=== PATIENT | female | born 1955 | race Hispanic/Latino ===

== ENCOUNTER 2025-01-22 19:23 | Inpatient (IN) | payer MEDICARE, OTHER ==
[2025-01-22] MEDS ORDERED: LIDOCAINE 2% W/EPI 1:200,000 MPF 20 ML VIAL IM ONE (19:58)
--- OUTSIDE RECORDS SUMMARY | 2025-01-22 20:00 | XMS REPORT | Continuity of Care Document ---
Author Name Unknown Address [address] [facility] [address] [place] [address] [facility] Address [address] [facility]. [address] [place] [address] Care Team Providers Care Car Record Clerk Name Role Phone Esther TORRES, Anselmo Primary Care Physic kati [phone] WAYLON BASS Attending Clinician Unavailable MILI CSHWARTZ Attending Clinician Unavailable MILI SCHWARTZ Attending Clinician Unavailable JADA-OJRDI WREN Attending Clinician Unavailab JORDI Salcedo Attending Clinician Unavailab NADER Mtz Attending Clinician Unavailable NADER CASANOVA Attending Clinician Unavailable Nader Casanova MD Attending Clinician [phone] SHARDA RICCI Attending Clinician Rolanda Davonte Liu RN Attending Clinician Unavail able MEREDITH BALTAZAR Attending Clinician Unava ilterrell Doctor Unassigned, [place] Attending Clinician U MENDEZ Helms Attending Clinician Unavailab MENDEZ Alonzo Attending Clinician Unavailab HENRRY Harvey Attending Clinician Unavailable Jordi Peterson MD Attending Clinician [phone] WAYLON JAMES Attending Clinician Unavailable Waylon James DO Attending Clinician [phone] Luis Jay MD Attending Clinician [phone] Deo Johnson MD Attending Clinician [phone] Robby Franklin MD Attending Clinician [phone] Fang Villafuerte RN Attending Clinician Unavailabl e Shu Chang LVN Attending Clinician Unavaila Miriam Martin DO Attending Clinician [phone] Andrew Sena DO Attending Clinician [phone] GERSON RAUSCH Attending Clinician Unavailable Matt WAX BALL KNOCK OUT WORKER, Gerson Attending Clinician [phone] Alea MOONP, Ericca D Attending Clinician [phone] Ashley Corral MD Attending Clinician [phone] MARS LAGUNA Attending Clinician Unavailable Lara MEYER, Mars Attending Clinician [phone] Neha Chaudhry MD Attending Clinician [phone] NEHA CHAUDHRY Attending Clinician Unavailable NEHA CHAUDHRY Attending Clinician Unavailable Ella Fallon MD Attending Clinician [phone] ELLA FALLON Attending Clinician Unavailable Ella Fallon MD Attending Clinician [phone] Darien Holley MD Attending Clinician [phone] Mars Burk Attending Clinician [phone] RADIOLOGY Attending Clinician Unavailable Radiology Attending Clinician Unavailable DARIEN HOLLEY Attending Clinician Unavailable DOE COATS Attending Clinician UnavailDOE Hodgson Attending Clinician UnavailDoe Hodgson MD Attending Clinician [phone] Doctor Unassigned, [place] Attending Clinician U Gabi Varma PA-C Attending Clinician [phone] MARS AVILEZ Attending Clinician UnavailSoila Chavez MD Attending Clinician [phone] GABI CHAUHAN Attending Clinician Unavailable Ann HENRIQUEZ Attending Clinician Unavailable Ann Encarnacion Attending Clinician [phone] EBRAFAELA CELESTIN Attending Clinician Unavailable [facility] Attending Clinician Un available EbrahiRafaela Silva Attending Clinician [phone] , Adc Surg Spec Procedure Attending Clinician Unavailable Nurse [facility] Surgery Gu Attending Clinician MANUELA Aguirre Attending Clinician Unavailable Manuela Huff MD Attending Clinician [phone] Barry Larsen Attending Clinician Unavailable Soila Moreno Attending Clinician [phone] SOILA CATHERINE Attending Clinician Unavailable MARCELO CHAPPELL Attending Clinician Unavailable ANSELMO PLASENCIA Attending Clinician Un available WAYLON BASS Admitting Clinician Unavailable NADER CASANOVA Admitting Clinician Unavailable Nader Casanova MD Admitting Clinician [phone] WAYLON JAMES Admitting Clinician Unavailable Waylon James DO Admitting Clinician ASHLEY CORRAL Admitting Clinician Unavailable Ashley Corral MD Admitting Clinician [phone] MARS LAGUNA Admitting Clinician Unavailable LUDMILA THOMPSON Admitting Clinician Unavailable DARIEN HOLLEY Admitting Clinician Unavailable MILI SCHWARTZ Admitting Clinician Unavailable MICHAEL MILLER Admitting Clinician Unavaila ble ANSELMO PLASENCIA Admitting Clinician Un available GABI CHAUHAN Admitting Clinician Unavailable MARS AVILEZ Admitting Clinician Unavailginny bartholomew Payers Payer Name Policy Type Policy Number Effective Date Expirati on Date Source [facility] DUAL COMP HMO-POS D SNP [id number] 2016 00:00:00 [facility] MEDICAID DUAL COMPLETE HMO DSNP [id number] 2024 00:00:00 Problems Condition Name Condition Details Condition Category Status Onset Date Resolution Date Last Treatment Date Treating Clinician Comments Source Urinary tract infection due to ESBL Klebsiella Urinary tract infection due to ESBL Klebsiella Disease Active 12-29 00:00: 00 [facility] Delirium due to general medical condition Delirium due to general medical condition Disease Active 12-27 00:00: 00 [facility] Urinary tract infection associated with indwelling urethral catheter Urinary tract infection associated with indwelling urethral catheter Disease Active 12-27 00:00: 00 [facility] Transporta tion insecurity due to lack of access to vehicle Transporta tion insecurity due to lack of access to vehicle Disease Recurre nce 3-31 00:00: 00 [facility] Postoperat chetan urinary retention Postoperat chetan urinary retention Disease Active 3-30 00:00: 00 [facility] Primary hypertensi on Primary hypertensi on Disease Active 3-29 00:00: 00 [facility] (current) use of antithromb otics/anti platelets terminal gauger (current) use of antithromb otics/anti platelets Disease Active 3- 00:00: 00 [facility] Acute osteomyeli tis of right foot Acute osteomyeli tis of right foot Disease Active 25 00:00: 00 [facility] PAD (periphera l artery disease) PAD (periphera l artery disease) Disease Active 3-24 00:00: 00 [facility] S/P transmetat arsal amputation of foot, right S/P transmetat arsal amputation of foot, right Disease Active 3-24 00:00: 00 [facility] Pulmonary nodules Pulmonary nodules Disease Active 5-22 00:00: 00 [facility] S/P total knee arthroplas ty, left S/P total knee arthroplas ty, left Disease Active 6- 00:00: 00 [facility] Degenerati ve joint disease Degenerati ve joint disease Disease Active 5-23 00:00: 00 [facility] Left knee pain, unspecifie d chronicity Left knee pain, unspecifie d chronicity Disease Active 5-04 00:00: 00 [facility] Hypovitami nosis D Hypovitami nosis D Disease Active 4-10 00:00: 00 [facility] Positive PAOLO (antinucle ar antibody) >1:1280, +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[facility] [place] Positive PAOLO (antinucle ar antibody) >1:1280, +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[facility] [place] Disease Active 2016-09 0-04 00:00: 00 [facility] Overlap syndrome Overlap syndrome Disease Active 2016-09 0-03 00:00: 00 [facility] Chronic pain of both knees Chronic pain of both knees Disease Active 6-13 00:00: 00 [facility] Rheumatoid arthritis involving multiple sites with positive rheumatoid factor: diagnosed 2014; +RF/CCP Rheumatoid arthritis involving multiple sites with positive rheumatoid factor: diagnosed 2014; +RF/CCP Disease Active 01-28 00:00: 00 [facility] terminal gauger current use of systemic steroids [facility] current use of systemic steroids Disease Active 01-28 00:00: 00 [facility] At risk for bone density loss At risk for bone density loss Disease Active 01-28 00:00: 00 [facility] GERD (gastroeso phageal reflux disease) GERD (gastroeso phageal reflux disease) Disease Active 10-20 00:00: 00 [facility] Acquired hypothyroi dism Acquired hypothyroi dism Disease Active 2015-09 00:00: 00 [facility] Abnormal chest CT Abnormal chest CT Disease Active 2015-09 00:00: 00 Overview: Formattin g of this note might be different from the original. Followed by William foster in [place]. [facility] Mixed hyperlipid emia Mixed hyperlipid emia Disease Active [facility] Other hyperlipid emia Other hyperlipid emia Disease Active [facility] Other overlap syndromes Other overlap syndromes Active Problem 04/10/2022 [facility] Problem Active 2022-04-10 02:45:26 Loly De La Cruz CRP elevated CRP elevated Active Problem 04/10/2022 [facility] Problem Active 2022-04-10 02:45:26 L[facility] De La [facility] Vitamin D deficiency Vitamin D deficiency Active Problem 04/10/2022 [facility] Problem Active 2022-04-10 02:45:26 Loly De La Cruz Asymptomat ic age-relate d postmenopa usal state Asymptomat ic age-relate d postmenopa usal state Active Problem 04/10/2022 [facility] Problem Active 2022-04-10 02:45:26 L[facility] De La [facility] Seropositi ve 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 Active Problem 04/10/2022 [facility] Problem Active 2022-04-10 02:45:26 Loly De La Cruz Osteopenia Osteopenia Active Problem 04/10/2022 [facility] Problem Active 2022-04-10 02:45:26 Loly De La Cruz Encounter for immunizati on Encounter for immunizati on Active Problem 04/10/2022 [facility] Problem Active 2022-04-10 02:45:26 Loly De La Cruz Encounter for therapeuti c drug level monitoring Encounter for therapeuti c drug level monitoring Active Problem 04/10/2022 [facility] Problem Active 2022-04-10 02:45:26 Loly De La Cruz Elevated blood pressure (not hypertensi on) Elevated blood pressure (not hypertensi on) Active Problem 04/10/2022 [facility] Problem Active 2022-04-10 02:45:26 L[facility] De La [facility] Rheumatoid arthritis involving both knees Rheumatoid arthritis involving both knees Disease Resolve d 2015-09 2-12 00:00: 00 2024-12-25 00:00:00 2024-12-25 10:55:28 [facility] Sepsis Sepsis Disease Resolve d 2-24 00:00: 00 2024-12-24 00:00:00 2024-12-24 11:20:17 [facility] Toe infection Toe infection Disease Resolve d 1-16 00:00: 00 2024-12-24 00:00:00 2024-12-24 11:20:20 [facility] Peripheral arterial disease Peripheral arterial disease Disease Resolve d 1-16 00:00: 00 2024-12-24 00:00:00 2024-12-24 11:20:19 [facility] Pain of toe of right foot Pain of toe of right foot Disease Resolve d 2023-09 2-24 00:00: 00 2024-12-24 00:00:00 2024-12-24 11:20:20 [facility] Total knee replacemen t status Total knee replacemen t status Disease Resolve d 0 5-20 00:00: 00 2024-12-24 00:00:00 2024-12-24 11:20:33 [facility] Arthritis of right knee Arthritis of right knee Disease Resolve d 11-26 00:00: 00 2024-12-24 00:00:00 2024-12-24 11:20:26 Overview: Formattin g of this note might be different from the original. Added automatic ally from request for surgery [id number] [facility] Arthritis of knee Arthritis of knee Disease Resolve d 11-26 00:00: 00 2024-12-24 00:00:00 2024-12-24 11:20:24 Overview: Formattin g of this note might be different from the original. Added automatic ally from request for surgery [id number] [facility] MSSA (methicill in susceptibl e Staphyloco ccus aureus) infection MSSA (methicill in susceptibl e Staphyloco ccus aureus) infection Disease Resolve d 2017-09 00:00: 00 2024-12-24 00:00:00 2024-12-24 11:20:28 Overview: Formattin g of this note might be different from the original. Skin (recurren t), pharynx [facility] Screening for colorectal cancer Screening for colorectal cancer Disease Resolve d 13 00:00: 00 2024-12-24 00:00:00 2024-12-24 11:20:29 Overview: Formattin g of this note might be different from the original. Added automatic ally from request for surgery [id number] [facility] Obesity (BMI 30-39.9) Obesity (BMI 30-39.9) Disease Resolve d 02-15 00:00: 00 2024-12-24 00:00:00 2024-12-24 11:20:37 [facility] Urinary incontinen ce, overflow Urinary incontinen ce, overflow Disease Resolve d 08 00:00: 00 2024-12-24 00:00:00 2024-12-24 11:20:41 [facility] Left knee pain, unspecifie d chronicity Left knee pain, unspecifie d chronicity Disease Resolve d 2018-0 5-04 00:00: 00 2024-12-24 00:00:00 2024-12-24 11:20:42 [facility] Long-term use of Plaquenil Long-term use of Plaquenil Disease Resolve d 4-10 00:00: 00 2024-12-24 00:00:00 2024-12-24 11:21:57 [facility] Pain Pain Disease Resolve d 3-02 00:00: 00 2024-12-24 00:00:00 2024-12-24 11:20:47 Overview: Formattin g of this note might be different from the original. Added automatic ally from request for surgery [id number] [facility] Therapeuti c drug monitoring Therapeuti c drug monitoring Disease Resolve d 6-13 00:00: 00 2024-12-24 00:00:00 2024-12-24 11:20:49 [facility] Screening for HIV (human immunodefi ciency virus) Screening for HIV (human immunodefi ciency virus) Disease Resolve d 5-03 00:00: 00 2024-12-24 00:00:00 2024-12-24 11:20:10 [facility] Bone pain Bone pain Disease Resolve d 5-03 00:00: 00 2024-12-24 00:00:00 2024-12-24 11:20:11 [facility] Swelling of both hands Swelling of both hands Disease Resolve d 5- 00:00: 00 2024-12-24 00:00:00 2024-12-24 11:20:12 [facility] Severe obesity (BMI 35.0-35.9 with comorbidit y) Severe obesity (BMI 35.0-35.9 with comorbidit y) Disease Resolve d 5-08 00:00: 00 2024-12-07 00:00:00 2024-12-07 14:12:06 [facility] DM2 (diabetes mellitus, type 2) DM2 (diabetes mellitus, type 2) Disease Resolve d 4-20 00:00: 00 2024-12-07 00:00:00 2024-12-07 14:12:06 [facility] Leukocytos is Leukocytos is Disease Resolve d 2015-09 00:00: 00 2017-01-15 00:00:00 2017-01-15 20:00:50 [facility] Abscess Abscess Disease Resolve d 03 00:00: 00 2016-09-08 00:00:00 2016-09-08 12:57:28 [facility] Allergies, Adverse Reactions, Alerts Allergy Name Allergy Type Status Severity Reaction(s) Onset Date Inactive Date Treating Clinician Comments Source DOXYCYCL INE DRUG INGREDI Active N/V 2023-09 00:00: 00 [facility] Doxycycl ine Propensi ty to adverse reaction s Active Nausea and/or Vomiting 2023-09 00:00: 00 [facility] Bactrim - Oral Propensi ty to adverse reaction to drug Active 7-14 00:00: 00 William Annie Quinones n Propensi ty to adverse reaction to drug Active 5-18 00:00: 00 William Annie Joni Bactrim - Oral Propensi ty to adverse reaction to drug Active 0 4-25 00:00: 00 William Quinones Bactrim Bactrim Active Info Not Available 3-04 00:00: 00 Loly De La Cruz Bactrim Propensi ty to adverse reaction to drug Active 0 1-06 00:00: 00 William Annie Joni Sulfa (Sulfona mide Antibiot ics) Propensi ty to adverse reaction s Active Nausea and/or Vomiting -14 00:00: 00 Bactrim [facility] SULFA (SULFONA MIDE ANTIBIOT ICS) Drug Class Active N/V 4-14 00:00: 00 [facility] Social History Social Habit Start Date Stop Date Quantity Comments Source Gender identity [facility] History of Occupation [facility] History of tobacco use Passive smoker [facility] History SDOH Alcohol Frequency [facility] History SDOH Alcohol Std Drinks [facility] History SDOH Alcohol Binge [facility] Alcoholic beverage intake 2025-01-09 00:00:00 2025-01-09 00:00:00 Current drinker of alcohol (finding) [facility] History of Social function 2024-12-07 00:00:00 2024-12-07 00:00:00 [facility] Tobacco use and exposure 2024-11-21 00:00:00 2024-11-21 00:00:00 Smokeless tobacco non-user [facility] Alcohol intake 2023-11-06 00:00:00 2023-11-06 00:00:00 Current drinker of alcohol (finding) [facility] Exposure to SARS-CoV-2 (event) 2023-02-01 00:00:00 2023-02-11 13:43:00 Not sure [facility] Tobacco Comment 2022-10-31 00:00:00 2022-10-31 00:00:00 Quit smoking around 2011 [facility] Alcohol Comment 2018-12-21 00:00:00 2018-12-21 00:00:00 rare [facility] Sex assigned at 1955 00:00:00 1955 00:00:00 [facility] Smoking Status Start Date Stop Date Source Ex-smoker 2024-11-21 00:00:00 2024-11-21 00:00[facility]00 [facility] Medications Ordered Medication Name Filled Medication Name Start Date Stop Date Current Medication? Ordering Clinician Indication Dosage Frequency Signature (SIG) Comments Components Source sodium hypochlorit e 0.025% (Dakin's) solution sodium hypochlorit e 0.025% (Dakin's) solution 01-12 01:00: 00 01-12 01:14 :24 Yes Topical, BID, First dose on Thu01/11/25 at 2000, Until Discontinu ed, Routine [facility] HYDROcodone -acetaminop hen 5-325 mg tablet HYDROcodone -acetaminop hen 5-325 mg tablet 01-11 00:00: 00 Yes [id number] 1{tbl} Take 1 tablet by mouth every 6 (six) hours as needed for Pain (scale 7-10) for up to 10 doses. Indication s: acute pain [facility] amoxicillin -pot clavulanate 875-125 mg per tablet amoxicillin -pot clavulanate 875-125 mg per tablet 01-11 00:00: 00 01-14 04:59 :00 Yes [id number] 1{tbl} Take 1 tablet by mouth every 12 (twelve) hours for 2 days. [facility] amoxicillin -pot clavulanate (AUGMENTIN) 875-125 mg per tablet 1 tablet amoxicillin -pot clavulanate (AUGMENTIN) 875-125 mg per tablet 1 tablet 01-09 13:00: 00 01-14 12:59 :00 Yes 1{tbl} 1 tablet, Oral, Q12H ABX, 10 doses, First dose (after last reorder) on 01/09/25 at 0800, Last dose on Thu01/13/25 at 2000, Routine, Reason for Anti-Infec tive: Empiric Therapy for Suspected Infection, Empiric Therapy Site: Skin / Soft tissue, Duration of therapy: 5 days [facility] fentanyl PF (SUBLIMAZE (PF)) injection 50 mcg fentanyl PF (SUBLIMAZE (PF)) injection 50 mcg 01-08 22:15: 00 01-08 21:36 :00 Yes 50ug 50 mcg, Slow IV Push, ONCE, 1 dose, On 01/08/25 at 1715, Routine [facility] morpHINE injection 2 mg morpHINE injection 2 mg 01-07 15:45: 00 01-07 15:45 :00 Yes 2mg 2 mg, Slow IV Push, ONCE, 1 dose, On 01/07/25 at 1045, Routine [facility] KCL (KLOR-CON M20) tablet 40 mEq KCL (KLOR-CON M20) tablet 40 mEq 01-05 22:00: 00 01-05 21:49 :00 Yes 40meq 40 mEq, Oral, ONCE, 1 dose, On Judi 01/05/25 at 1700, Routine [facility] Potassium Bicarb-Citr ic Acid (EFFER-K) effervescen t tablet 80 mEq Potassium Bicarb-Citr ic Acid (EFFER-K) effervescen t tablet 80 mEq 01-05 12:45: 00 01-05 14:55 :00 Yes 80meq 80 mEq, Oral, ONCE, 1 dose, On Judi 01/05/25 at 0745, Routine [facility] amoxicillin -pot clavulanate (AUGMENTIN) 875-125 mg per tablet 1 tablet amoxicillin -pot clavulanate (AUGMENTIN) 875-125 mg per tablet 1 tablet 01-03 15:00: 00 01-08 13:46 :00 Yes 1{tbl} 1 tablet, Oral, Q12H ABX, 10 doses, First dose on Thu01/03/25 at 1000, Last dose on 01/07/25 at 2200, Routine, Reason for Anti-Infec tive: Empiric Therapy for Suspected Infection, Empiric Therapy Site: Skin / Soft tissue, Duration of therapy: 5 days [facility] KCL (KLOR-CON M20) tablet 40 mEq KCL (KLOR-CON M20) tablet 40 mEq 01-02 12:15: 00 01-02 12:15 :00 Yes 40meq 40 mEq, Oral, ONCE, 1 dose, On Thu01/02/25 at 0715, Routine [facility] methocarbam oL 500 mg tablet 12-30 00:00: 00 Yes [id number] 500mg Take 1 tablet by mouth in the morning and 1 tablet at noon and 1 tablet in the evening. [facility] acetaminoph en 325 mg tablet 12-30 00:00: 00 12-31 04:59 :00 Yes [id number] 650mg Take 2 tablets by mouth every 6 (six) hours as needed for Pain (scale 1-3). [facility] methotrexat e 2.5 mg tablet 12-30 00:00: 00 02-21 04:59 :00 Yes [id number] 20mg Take 8 tablets by mouth weekly [facility] apixaban 5 mg tablet 12-30 00:00: 00 01-30 04:59 :00 Yes [id number] 5mg Take 1 tablet by mouth in the morning and 1 tablet in the evening. Do all this for 30 days. Indication s: atrial fibrillati on [facility] polyethylen e glycol 3350 17 gram powder 12-30 00:00: 00 01-30 04:59 :00 Yes [id number] 17g Take 1 Packet by mouth in the morning for 30 days. [facility] tamsulosin 0.4 mg 24 hr capsule 12-30 00:00: 00 01-30 04:59 :00 Yes [id number] .8mg Take 2 capsules by mouth in the morning for 30 days. [facility] ciprofloxac in HCl 500 mg tablet 12-30 00:00: 00 01-07 04:59 :00 No [id number] 9100 500mg Take 1 tablet by mouth every 12 (twelve) hours for 7 days. [facility] tamsulosin (FLOMAX) capsule 0.8 mg tamsulosin (FLOMAX) capsule 0.8 mg 12-29 14:00: 00 Yes .8mg 0.8 mg, Oral, DAILY, First dose (after last modificati on) on Thu12/29/24 at 0900, Until Discontinu ed, Routine [facility] ciprofloxac in HCl (CIPRO) tablet 500 mg ciprofloxac in HCl (CIPRO) tablet 500 mg 12-29 13:45: 00 01-05 10:59 :00 Yes 500mg 500 mg, Oral, Q12HA2, 14 doses, First dose on Thu12/29/24 at 0845, Last dose on Thu01/04/25 at 1800, SARAH, Reason for Anti-Infec tive: Documented Infection, Documented Infection Site: Urine, Duration of Therapy: 14 days [facility] apixaban (ELIQUIS) tablet 5 mg apixaban (ELIQUIS) tablet 5 mg 12-29 13:00: 00 Yes 5mg 5 mg, Oral, BID, First dose on Thu12/29/24 at 0800, Until Discontinu ed, Routine, Indication s: DVT/PE [facility] KCL (KLOR-CON M20) tablet 40 mEq KCL (KLOR-CON M20) tablet 40 mEq 12-29 13:00: 00 12-29 14:48 :00 Yes 40meq 40 mEq, Oral, ONCE, 1 dose, On Thu12/29/24 at 0800, Routine [facility] polyethylen e glycol 3350 powder 17 g polyethylen e glycol 3350 powder 17 g 12-27 21:30: 00 Yes 17g 17 g, Oral, DAILY, First dose on Thu12/27/24 at 1630, Until Discontinu ed, Routine [facility] cefTRIAXone (ROCEPHIN) 1,000 mg in water for injection, sterile 10 mL IV Push cefTRIAXone (ROCEPHIN) 1,000 mg in water for injection, sterile 10 mL IV Push 12-27 15:00: 00 12-29 13:38 :17 Yes 1000mg 1,000 mg, Intravenou s, Q24H ABX, 5 doses, First dose on Thu12/27/24 at 1000, Last dose on Thu12/31/24 at 1000, 10 mL, Reason for Anti-Infec tive: Documented Infection, Documented Infection Site: Urine, Duration of Therapy: 7 days [facility] KCL (KLOR-CON M20) tablet 40 mEq KCL (KLOR-CON M20) tablet 40 mEq 12-27 12:00: 00 12-27 13:59 :00 Yes 40meq 40 mEq, Oral, ONCE, 1 dose, On Thu12/27/24 at 0700, Routine [facility] heparin 25,000 Units/250 mL (Premixed Bag) in 0.45 % NS heparin 25,000 Units/250 mL (Premixed Bag) in 0.45 % NS 3-31 11:30: 00 12-29 11:17 :58 Yes 0U/h 0-2,350 Units/hr (0-23.5 mL/hr), IV Infusion, CONTINUOUS , Starting on Thu12/26/24 at 0630, Initiate at 1,150 Units/hr (calculate d at 18 units/kg/h r, rounded to the closest 50 units) DO NOT Exceed the MAXIMUM 1,300 units/hr for initiation of heparin infusion. CAUTION - If LMWH given in ER, AVOID bolus and start next dose/drip 12 hrs after ER dosage. Must program rate using programmab le infusion pump. Check with the ordering provider first prior to any administra tion should the patient be on existing/a dditional anticoagul ant therapy. Range, Dosing and Testing: FOR [facility], [facility], AND [facility] ONLY - aPTT < 35: Bolus 5000 units, increase rate 300 units/hr - aPTT 35-44: Bolus 3000 units, increase rate 200 units/hr - aPTT 45-54: Increase rate 100 units/hr - aPTT 55-85: NO CHANGE - aPTT 86-95: Decrease rate 100 units/hr - aPTT 96-120: Hold 30 minutes, decrease rate 150 units/hr - aPTT > 120: Hold 60 minutes, decrease rate 200 units/hr Check aPTT 6 hours after initiation , then Q6H after every change, aPTT Q12H once therapeuti c levels are reached. FOR [facility] ONLY - aPTT < 40: Bolus 5000 units, increase rate 300 units/hr - aPTT 40-49: Bolus 3000 units, increase rate 200 units/hr - aPTT 50-59: Increase rate 100 units/hr - aPTT 60-85: NO CHANGE - aPTT 86-95: Decrease rate 100 units/hr - aPTT 96-120: Hold 30 minutes, decrease rate 150 units/hr - aPTT > 120: Hold 60 minutes, decrease rate 200 units/hr Check aPTT 6 hours after initiation , then Q6H after every change, aPTT Q12H once therapeuti c levels are reached. DO NOT ADJUST INITIAL BOLUS OR INITIAL INFUSION RATE. [facility] heparin (1,000 unit/mL, 10 mL vial) [id number] 3-31 11:17: 56 12-29 11:17 :58 Yes 3000U FOR REBOLUSING , Starting on Thu12/26/24 at 0617, Until Judi 12/29/24 at 0617, Routine, Dosing based on aPTT testing parameters (refer to continuous heparin drip order) [facility] KCL (KLOR-CON M20) tablet 40 mEq KCL (KLOR-CON M20) tablet 40 mEq 12-26 02:15: 00 12-26 01:58 :00 Yes 40meq 40 mEq, Oral, ONCE, 1 dose, On [place] 12/25/24 at 2115, Routine [facility] tamsulosin (FLOMAX) capsule 0.4 mg tamsulosin (FLOMAX) capsule 0.4 mg 12-25 14:00: 00 12-28 15:56 :48 Yes .4mg 0.4 mg, Oral, DAILY, First dose on Thu12/25/24 at 0900, Until Discontinu ed, Routine [facility] aspirin EC tablet 81 mg aspirin EC tablet 81 mg 12-24 14:00: 00 01-12 01:14 :24 Yes 81mg 81 mg, Oral, DAILY, First dose on [facility] 12/24/24 at 0900, Until Discontinu ed, Routine [facility] rosuvastati n (CRESTOR) tablet 20 mg rosuvastati n (CRESTOR) tablet 20 mg 12-24 14:00: 00 01-12 01:14 :24 Yes 20mg 20 mg, Oral, DAILY, First dose on [facility] 12/24/24 at 0900, Until Discontinu ed, Routine [facility] DULoxetine (CYMBALTA) capsule 30 mg DULoxetine (CYMBALTA) capsule 30 mg 12-24 14:00: 00 12-29 20:13 :11 Yes 30mg 30 mg, Oral, DAILY, First dose on 12/24/24 at 0900, Until Discontinu ed, Routine [facility] fentanyl PF (SUBLIMAZE (PF)) injection 25 mcg fentanyl PF (SUBLIMAZE (PF)) injection 25 mcg 12-24 11:33: 55 12-29 20:13 :11 Yes 25ug 25 mcg, Slow IV Push, Q3HPRN, Starting on 12/24/24 at 0633, Until Judi 12/29/24 at 1513, Routine, Pain (scale 7-10) [facility] HYDROcodone -acetaminop hen (NORCO) 10-325 mg tablet 1 tablet HYDROcodone -acetaminop hen (NORCO) 10-325 mg tablet 1 tablet 12-24 11:33: 45 01-12 01:14 :24 Yes 1{tbl} 1 tablet, Oral, Q4HPRN, Starting on 12/24/24 at 0633, Until 01/11/25 at 2014, Routine, Pain (scale 4-6) [facility] levothyroxi ne (SYNTHROID) tablet 50 mcg levothyroxi ne (SYNTHROID) tablet 50 mcg 12-24 11:00: 00 01-12 01:14 :24 Yes 50ug 50 mcg, Oral, QAM-0600, First dose on Thu12/24/24 at 0600, Until Discontinu ed, Routine [facility] heparin 25,000 Units/250 mL (Premixed Bag) in 0.45 % NS heparin 25,000 Units/250 mL (Premixed Bag) in 0.45 % NS 12-24 05:00: 00 12-26 11:18 :26 Yes 500U/h 500 Units/hr (5 mL/hr), IV Infusion, CONTINUOUS , Starting on Thu12/24/24 at 0000, DO NOT TITRATE [facility] midodrine (PROAMATINE ) tablet 10 mg 12-24 03:01: 41 01-12 01:14 :24 No 10mg 10 mg, Oral, Q3HPRN, Starting on Thu12/23/24 at 2201, Until Thu01/11/25 at 2014, Routine, MAP<60 [facility] zinc sulfate (ORAZINC) capsule 50 mg zinc sulfate (ORAZINC) capsule 50 mg 12-24 01:00: 00 01-12 01:14 :24 Yes 50mg 50 mg, Oral, TID, First dose on Thu12/23/24 at 1999, Until Discontinu ed, Routine [facility] pantoprazol e (PROTONIX) EC tablet 40 mg pantoprazol e (PROTONIX) EC tablet 40 mg 12-24 01:00: 00 01-12 01:14 :24 Yes 40mg 40 mg, Oral, BID, First dose on Thu12/23/24 at 1999, Until Discontinu ed [facility] methocarbam [facility]L (ROBAXIN) tablet 500 mg methocarbam oL (ROBAXIN) tablet 500 mg 12-24 01:00: 00 12-27 16:49 :42 Yes 500mg 500 mg, Oral, TID, First dose on Thu12/23/24 at 1999, Until Discontinu ed, Routine [facility] gabapentin (NEURONTIN) capsule 300 mg gabapentin (NEURONTIN) capsule 300 mg 12-24 01:00: 00 12-27 16:45 :47 Yes 300mg 300 mg, Oral, TID, First dose on Thu12/23/24 at 1999, Until Discontinu ed, Routine [facility] sodium hypochlorit e 0.25% (DAKIN'S SOLUTION) solution 12-23 22:33: 00 12-23 23:25 :38 No PRN, Starting on Thu12/23/24 at 1733, Until Thu12/23/24 at 1825, Routine, Intra-op [facility] ondansetron (ZOFRAN (PF)) injection 4 mg ondansetron (ZOFRAN (PF)) injection 4 mg 12-23 21:59: 42 01-12 01:14 :24 Yes 4mg 4 mg, Slow IV Push, Q6HPRN, Starting on Thu12/23/24 at 1659, Until Thu01/11/25 at 2014, Administer over 2-5 Minutes, 2 mL [facility] acetaminoph en (TYLENOL) tablet 650 mg 12-23 21:59: 34 Yes 650mg [facility] heparin 10,000 units in NS 1000 mL for vascular 12-23 19:46: 00 12-23 23:25 :38 No PRN, Starting on Thu12/23/24 at 1446, Intra-op [facility] Misc 12-18 00:00: 00 Yes [id number] orders for pads, pull ups and incontinen t supplies like wipes. [facility] methotrexat e 2.5 mg tablet 12-16 00:00: 00 12-30 00:00 :00 No [facility] HYDROcodone -acetaminop hen 5-325 mg tablet 12-13 00:00: 00 Yes 1{tbl} Take 1 tablet by mouth in the morning and 1 tablet at noon and 1 tablet in the evening. [facility] DULoxetine 30 mg capsule 12-07 00:00: 00 Yes [id number] 30mg Take 1 capsule by mouth in the morning. [facility] amoxicillin -pot clavulanate (AUGMENTIN) 875-125 mg per tablet 1 tablet 11-29 20:00: 00 12-04 07:59 :00 Yes 1{tbl} 1 tablet, Oral, Q12H ABX, 9 doses, First dose (after last modificati on) on Thu11/29/24 at 1400, Last dose on Thu12/03/24 at 1400, Routine, Reason for Anti-Infec tive: Documented Infection, Documented Infection Site: Skin / Soft Tissue, Duration of Therapy: 10 days [facility] potassium chloride in water 10 mEq/100 mL RTU 10 mEq 11-29 20:00: 00 11-29 23:59 :00 Yes 10meq 10 mEq, IV Piggyback, Q1H, 4 doses, First dose (after last reorder) on Thu11/29/24 at 1400, Last dose on Thu11/29/24 at 1700, Administer over 60 Minutes, 100 mL [facility] ketorolac (TORADOL) injection 15 mg 11-29 05:15: 00 11-29 04:38 :00 No 15mg 15 mg, Slow IV Push, ONCE, 1 dose, On Thu11/28/24 at 2315, Routine [facility] methocarbam oL 500 mg tablet 11-29 00:00: 00 12-30 00:00 :00 No [id number] 500mg Take 1 tablet by mouth in the morning and 1 tablet at noon and 1 tablet in the evening. Do all this for 30 days. [facility] oxyCODONE 5 mg immediate release tablet 11-29 00:00: 00 12-07 04:59 :00 Yes [id number] 5mg Take 1 tablet by mouth every 6 (six) hours as needed for Pain (scale 4-6) for up to 7 days. Indication s: acute pain [facility] KCL 20 mEq tablet 11-29 00:00: 00 12-07 04:59 :00 Yes [id number] 20meq Take 1 tablet by mouth in the morning and 1 tablet in the evening. Do all this for 7 days. [facility] amoxicillin -pot clavulanate 875-125 mg per tablet 11-29 00:00: 00 12-04 05:59 :00 Yes [id number] 1{tbl} Take 1 tablet by mouth in the morning and 1 tablet in the evening. Do all this for 4 days. 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 : JAIRO PAZ [facility] NaCl 0.9% (NS) 1000 mL + KCL 40 mEq 11-28 16:00: 00 11-28 16:32 :57 No IV Infusion, at 100 mL/hr, ONCE, 1 dose, On Thu11/28/24 at 1000, Routine [facility] amoxicillin -pot clavulanate (AUGMENTIN) 875-125 mg per tablet 1 tablet 11-28 14:00: 00 11-29 19:43 :41 No 1{tbl} 1 tablet, Oral, Q12H ABX, 10 doses, First dose on Thu11/28/24 at 0800, Last dose on Thu12/02/24 at 2000, Routine, Reason for Anti-Infec tive: Documented Infection, Documented Infection Site: Skin / Soft Tissue, Duration of Therapy: 10 days [facility] potassium chloride in water 10 mEq/100 mL RTU 10 mEq 11-27 19:00: 00 11-27 19:51 :00 No 10meq 10 mEq, IV Piggyback, Q1H, 1 dose, First dose (after last reorder) on Thu11/27/24 at 1300, Administer over 60 Minutes, 100 mL [facility] NaCl 0.9% (NS) 1000 mL + KCL 40 mEq 11-27 18:00: 00 11-28 13:00 :00 No IV Infusion, at 100 mL/hr, ONCE, 1 dose, On Thu11/27/24 at 1200, Routine [facility] midazolam (VERSED) injection 0.5 mg 11-27 16:48: 45 11-27 18:07 :00 No .5mg 0.5 mg, IV Push, ONCE PRN, 1 dose, Starting on Thu11/27/24 at 1048, Until Thu11/27/24 at 1207, Routine, Anxiety, Agitation [facility] potassium chloride in water 10 mEq/100 mL RTU 10 mEq 11-27 15:00: 00 11-27 18:09 :55 No 10meq 10 mEq, IV Piggyback, Q1H, 3 doses, First dose on Thu11/27/24 at 0900, Last dose on Thu11/27/24 at 1100, Administer over 60 Minutes, 100 mL [facility] vancomycin (VANCOCIN/X ELLIA) 1,500 mg in 300 mL sterile water IV Piggyback 11-27 12:30: 00 11-27 22:47 :19 No 1500mg 1,500 mg, IV Piggyback, Q24H ABX, 2 doses, First dose on Thu11/27/24 at 0630, Last dose on Thu11/28/24 at 0630, Administer over 120 Minutes, 300 mL, Reason for Anti-Infec tive: Documented Infection, Documented Infection Site: Skin / Soft Tissue, Duration of Therapy: 7 days [facility] ceFEPIme (MAXIPIME) 1,000 mg in NaCl 0.9% (NS) 100 mL MINI-BAG 11-26 21:30: 00 11-27 22:47 :19 No 1000mg 1,000 mg, IV Piggyback, Q8H ABX, 18 doses, First dose (after last modificati on) on Thu11/26/24 at 1530, Last dose on Thu12/02/24 at 0730, Administer over 4 Hours, 100 mL, Reason for Anti-Infec tive: Documented Infection, Documented Infection Site: Skin / Soft Tissue, Duration of Therapy: 7 days [facility] KCL (KLOR-CON M20) tablet 40 mEq 11-26 16:00: 00 11-26 18:00 :00 No 40meq 40 mEq, Oral, ONCE, 1 dose, On Thu11/26/24 at 1000, Routine [facility] clopidogreL (PLAVIX) 75 mg tablet 75 mg 11-26 15:00: 00 Yes 75mg 75 mg, Oral, DAILY, First dose (after last modificati on) on Thu11/26/24 at 0900, Until Discontinu ed, Routine [facility] vancomycin (VANCOCIN/X ELLIA) 1,250 mg in 250 mL sterile water IV Piggyback 11-26 12:30: 00 11-26 14:30 :37 No 1250mg 1,250 mg, IV Piggyback, Q24H ABX, 3 doses, First dose (after last modificati on) on Thu11/26/24 at 0630, Last dose on Thu11/28/24 at 0630, Administer over 90 Minutes, 250 mL, Reason for Anti-Infec tive: Documented Infection, Documented Infection Site: Skin / Soft Tissue, Duration of Therapy: 7 days [facility] LORazepam (ATIVAN) tablet 0.5 mg 11-26 12:00: 00 Yes .5mg 0.5 mg, Oral, Q24H ABX, First dose on 11/26/24 at 0600, Until Discontinu ed, Routine [facility] HYDROmorpho ne (DILAUDID) injection 0.5 mg 11-26 00:16: 49 11-28 17:32 :14 No .5mg 0.5 mg, Slow IV Push, Q4HPRN, Starting on Thu11/25/24 at 1816, Until Thu11/28/24 at 1132, Routine, Pain (scale 7-10), Is this medication approved by a Faculty level provider? Yes, 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 : THADDEUS FORTE [facility] ceFEPIme (MAXIPIME) 1,000 mg in NaCl 0.9% (NS) 100 mL MINI-BAG 11-25 13:30: 00 11-26 14:36 :02 No 1000mg 1,000 mg, IV Piggyback, Q12H ABX, 14 doses, First dose on Thu11/25/24 at 0730, Last dose on Thu12/01/24 at 1930, Administer over 4 Hours, 100 mL, Reason for Anti-Infec tive: Documented Infection, Documented Infection Site: Skin / Soft Tissue, Duration of Therapy: 7 days [facility] vancomycin (VANCOCIN/X ELLIA) 1,000 mg in 200 mL sterile water IV Piggyback 11-25 12:30: 00 11-25 16:30 :50 No 1000mg 1,000 mg, IV Piggyback, Q24H ABX, 4 doses, First dose (after last modificati on) on Thu11/25/24 at 0630, Last dose on Thu11/28/24 at 0630, Administer over 60 Minutes, 200 mL, Reason for Anti-Infec tive: Documented Infection, Documented Infection Site: Skin / Soft Tissue, Duration of Therapy: 7 days [facility] KCL (KLOR-CON M20) tablet 20 mEq 11-25 02:00: 00 11-26 14:56 :19 No 20meq 20 mEq, Oral, BID, First dose on Thu11/24/24 at 2000, Until Discontinu ed, Routine [facility] ceFEPIme (MAXIPIME) 1,000 mg in NaCl 0.9% (NS) 100 mL MINI-BAG 11-25 01:30: 00 11-25 03:08 :00 No 1000mg 1,000 mg, IV Piggyback, ONCE, 1 dose, On Thu11/24/24 at 1930, Administer over 30 Minutes, 100 mL, Reason for Anti-Infec tive: Documented Infection, Documented Infection Site: Skin / Soft Tissue, Duration of Therapy: 7 days [facility] methocarbam oL (ROBAXIN) tablet 500 mg 11-23 20:00: 00 Yes 500mg 500 mg, Oral, TID, First dose on Thu11/23/24 at 1400, Until Discontinu ed, Routine [facility] acetaminoph en (TYLENOL) tablet 1,000 mg 11-23 20:00: 00 Yes 1000mg 1,000 mg, Oral, Q8H, First dose on Thu11/23/24 at 1400, Until Discontinu ed, Routine [facility] HYDROmorpho ne (DILAUDID) injection 0.5 mg 11-23 19:33: 13 11-25 19:32 :13 No .5mg 0.5 mg, Slow IV Push, Q4HPRN, Starting on Thu11/23/24 at 1333, Until Thu11/25/24 at 1332, Routine, Pain (scale 7-10), Is this medication approved by a Faculty level provider? Yes, 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 : THADDEUS FORTE [facility] oxyCODONE immediate release tablet 10 mg 11-23 19:29: 56 11-28 17:32 :14 No 10mg 10 mg, Oral, Q6HPRN, Starting on Thu11/23/24 at 1329, Until Thu11/28/24 at 1132, Pain (scale 4-6), 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 : JAIRO PAZ [facility] midazolam (VERSED) injection 11-23 15:33: 00 11-23 15:33 :32 No IV Push, ONCE INTRA PROCEDURE, Starting on Thu11/23/24 at 0933, Until Thu11/23/24 at 0933, Routine, Intra-op [facility] water for irrigation irrigation solution 11-23 14:16: 00 11-23 15:18 :45 No PRN, Starting on Thu11/23/24 at 0816, Until Thu11/23/24 at 0918, Routine, Intra-op [facility] lidocaine 1% (PF) (XYLOCAINE) injection 11-23 14:16: 00 11-23 15:18 :45 No PRN, Starting on Thu11/23/24 at 0816, Until Thu11/23/24 at 0918, Routine, Intra-op [facility] ePHEDrine 25 mg/5 mL (5 mg/mL) syringe 11-23 14:05: 00 11-23 14:52 :17 No Slow IV Push, ONCE INTRA PROCEDURE, Starting on Thu11/23/24 at 0805, Until Thu11/23/24 at 0852, Routine, Intra-op [facility] phenylephri ne (VAZCULEP) injection 11-23 14:03: 00 11-23 14:52 :17 No Slow IV Push, ONCE INTRA PROCEDURE, Starting on Thu11/23/24 at 0803, Until Thu11/23/24 at 0852, Routine, [facility] dexamethaso ne (DECADRON PHOSPHATE) 4 mg/mL injection 11-23 14:03: 00 11-23 14:52 :17 No Intravenou s, ONCE INTRA PROCEDURE, Starting on Thu11/23/24 at 0803, Until Thu11/23/24 at 0852, Routine, Intra-op [facility] ondansetron (ZOFRAN (PF)) injection 11-23 14:03: 00 11-23 14:52 :17 No Slow IV Push, ONCE INTRA PROCEDURE, Starting on Thu11/23/24 at 0803, Until Thu11/23/24 at 0852, Administer over 2-5 Minutes, Intra-op [facility] propofoL IV infusion 11-23 13:58: 00 11-23 14:52 :17 No Intravenou s, ONCE INTRA PROCEDURE, Starting on Thu11/23/24 at 0758, Intra-op [facility] lidocaine 1% (XYLOCAINE) 100 mg/10 mL (1 %) injection 11-23 13:58: 00 11-23 14:52 :17 No Intravenou s, ONCE INTRA PROCEDURE, Starting on Thu11/23/24 at 0758, Until Thu11/23/24 at 0852, Routine, Intra-op [facility] FENTanyl (PF) (SUBLIMAZE) injection 11-23 13:58: 00 11-23 14:52 :17 No Intravenou s, ONCE INTRA PROCEDURE, Starting on Thu11/23/24 at 0758, Until Thu11/23/24 at 0852, Routine, Intra-op [facility] lactated ringers IV infusion 11-23 13:53: 00 11-23 14:52 :17 No IV Infusion, CONTINUOUS PRN, Starting on Thu11/23/24 at 0753, Until Thu11/23/24 at 0852, Routine, Intra-op [facility] Oxycodone 10 mg Tab 11-23 09:18: 45 11-29 00:00 :00 No 10mg Take 1 tablet by mouth every 6 (six) hours as needed (pain). Patient reports taking TID [facility] potassium chloride in water 10 mEq/100 mL RTU 10 mEq 11-23 03:30: 00 11-23 09:00 :00 No 10meq 10 mEq, IV Piggyback, Q1H, 4 doses, First dose (after last reorder) on Thu11/22/24 at 2130, Last dose on Thu11/23/24 at 0000, Administer over 60 Minutes, 100 mL [facility] magnesium sulfate in water 2 gram/50 mL (4 %) infusion 2 g 11-23 00:15: 00 11-23 00:44 :00 No 2g 2 g, IV Piggyback, Administer over 60 Minutes, ONCE, 1 dose, On Thu11/22/24 at 1815, Routine [facility] KCL (KLOR-CON M20) tablet 40 mEq 11-22 23:45: 00 11-22 23:44 :00 No 40meq 40 mEq, Oral, ONCE, 1 dose, On Thu11/22/24 at 1745, Routine [facility] potassium chloride in water 10 mEq/100 mL RTU 10 mEq 11-22 16:00: 00 11-22 20:49 :00 No 10meq 10 mEq, IV Piggyback, Q2H, 4 doses, First dose (after last reorder) on Thu11/22/24 at 1000, Last dose on Thu11/22/24 at 1600, Administer over 60 Minutes, 100 mL [facility] Potassium Bicarb-Citr ic Acid (EFFER-K) effervescen t tablet 40 mEq 11-22 15:15: 00 11-24 14:04 :26 No 40meq 40 mEq, Oral, BID, First dose on Thu11/22/24 at 0915, Until Discontinu ed, [facility]AH [facility] rosuvastati n (CRESTOR) tablet 20 mg 11-22 15:00: 00 Yes 20mg 20 mg, Oral, DAILY, First dose on Thu11/22/24 at 0900, Until Discontinu ed, Routine [facility] losartan (COZAAR) tablet 25 mg 11-22 15:00: 00 Yes 25mg 25 mg, Oral, DAILY, First dose on Thu11/22/24 at 0900, Until Discontinu ed, Routine [facility] aspirin chewable tablet 81 mg 11-22 15:00: 00 Yes 81mg 81 mg, Oral, DAILY, First dose on Thu11/22/24 at 0900, Until Discontinu ed, Routine [facility] zinc sulfate (ORAZINC) capsule 50 mg 11-22 14:00: 00 Yes 50mg 50 mg, Oral, TID, First dose on Thu11/22/24 at 0800, Until Discontinu ed, Routine [facility] gabapentin (NEURONTIN) capsule 300 mg 11-22 14:00: 00 11-28 17:32 :14 No 300mg 300 mg, Oral, TID, First dose on Thu11/22/24 at 0800, Until Discontinu ed, Routine [facility] pantoprazol e (PROTONIX) EC tablet 40 mg 11-22 12:00: 00 Yes 40mg 40 mg, Oral, QAM-0600, First dose on Thu11/22/24 at 0600, Until Discontinu ed [facility] levothyroxi ne (SYNTHROID) tablet 50 mcg 11-22 12:00: 00 Yes 50ug 50 mcg, Oral, QAM-0600, First dose on Thu11/22/24 at 0600, Until Discontinu ed, Routine [facility] vancomycin (VANCOCIN/X ELLIA) 1,250 mg in 250 mL sterile water IV Piggyback 11-22 10:00: 00 11-24 17:32 :05 No 1250mg 1,250 mg, IV Piggyback, Q24H ABX, 7 doses, First dose (after last modificati on) on Thu11/22/24 at 0400, Last dose on Thu11/28/24 at 0400, Administer over 90 Minutes, 250 mL, Reason for Anti-Infec tive: Documented Infection, Documented Infection Site: Skin / Soft Tissue, Duration of Therapy: 7 days [facility] piperacilli n-tazobacta m (ZOSYN) 3.375 g in NaCl 0.9% (NS) 100 mL MINI-BAG 11-22 09:30: 00 11-24 20:54 :28 No 3.375g 3.375 g, IV Piggyback, Q8H ABX, 21 doses, First dose on Thu11/22/24 at 0330, Last dose on Thu11/28/24 at 1930, Administer over 4 Hours, 100 mL, Reason for Anti-Infec tive: Documented Infection, Documented Infection Site: Skin / Soft Tissue, Duration of Therapy: 7 days [facility] vancomycin placeholder : dosing by pharmacy 11-22 08:29: 22 Yes Routine, Rx Placeholde r, Starting on Thu11/22/24 at 0229, Until Discontinu ed [facility] oxyCODONE immediate release tablet 10 mg 11-22 08:05: 24 11-23 19:33 :55 No 10mg 10 mg, Oral, Q6HPRN, Starting on Thu11/22/24 at 0205, Until Thu11/23/24 at 1333, Pain, 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 : JAIRO PAZ [facility] heparin (porcine) injection 5,000 Units 11-22 04:00: 00 11-26 00:19 :53 No 5000U 5,000 Units, Subcutaneo us, Q8H, First dose on Thu11/21/24 at 2200, Until Discontinu ed, Routine [facility] potassium chloride in water 10 mEq/100 mL RTU 10 mEq 11-22 02:00: 00 11-22 07:59 :00 No 10meq 10 mEq, IV Piggyback, Q2H, 3 doses, First dose on 2/24/25 at 2000, Last dose on Thu11/22/24 at 0000, Administer over 60 Minutes, 100 mL [facility] KCL (KLOR-CON M20) tablet 40 mEq 11-22 00:30: 00 11-21 23:46 :00 No 40meq 40 mEq, Oral, ONCE, 1 dose, On Thu11/21/24 at 1830, Routine [facility] potassium chloride in water 10 mEq/100 mL RTU 10 mEq 11-22 00:00: 00 11-22 00:28 :28 No 10meq 10 mEq, IV Piggyback, Q1H, 4 doses, First dose on Thu11/21/24 at 1800, Last dose on Thu11/21/24 at 2100, Administer over 60 Minutes, 100 mL [facility] rosuvastati n 20 mg tablet 11-03 00:00: 00 10-30 05:59 :00 Yes [id number] 20mg Take 1 tablet by mouth in the morning for 360 days. [facility] clopidogreL 75 mg tablet 11-03 00:00: 00 01-11 00:00 :00 No [id number] 75mg Take 1 tablet by mouth in the morning for 90 days. [facility] losartan 25 mg tablet 11-03 00:00: 00 12-30 00:00 :00 No [id number] 25mg Take 1 tablet by mouth in the morning for 60 days. [facility] NIFEdipine ER 60 mg tablet 11-03 00:00: 00 11-29 00:00 :00 No [id number] 60mg Take 1 tablet by mouth in the morning for 60 days. [facility] aspirin 81 mg chewable tablet - 00:00: 00 10-29 05:59 :00 Yes [id number] 81mg Take 1 tablet by mouth in the morning for 360 days. [facility] zinc sulfate 50 mg zinc (220 mg) capsule 2-05 00:00: 00 02-01 04:59 :00 Yes [id number] 50mg Take 1 capsule by mouth in the morning and 1 capsule at noon and 1 capsule in the evening. Do all this for 90 days. [facility] gabapentin 300 mg capsule 11-02 00:00: 00 01-02 04:59 :00 No [id number] 300mg Take 1 capsule by mouth in the morning and 1 capsule at noon and 1 capsule in the evening. Do all this for 60 days. [facility] amoxicillin -clavulanat e (AUGMENTIN) 875-125 mg per tablet 11-02 00:00: 00 11-17 05:59 :00 Yes [id number] 1{tbl} Take 1 tablet by mouth in the morning and 1 tablet in the evening. Do all this for 14 days. [facility] oxyCODONE 10 mg Tab 11-02 00:00: 00 11-10 05:59 :00 No [id number] 10mg Take 1 tablet by mouth every 6 (six) hours as needed for Pain (scale 7-10) for up to 7 days. Indication s: acute pain [facility] fentanyl PF (SUBLIMAZE (PF)) injection 50 mcg 10-30 19:00: 00 10-30 19:13 :00 No 50ug 50 mcg, Slow IV Push, ONCE, 1 dose, On 10/30/24 at 1315, STAT [facility] LORazepam (ATIVAN) tablet 0.5 mg 10-30 19:00: 00 10-30 19:13 :00 No .5mg 0.5 mg, Oral, ONCE, 1 dose, On Thu10/30/24 at 1315, STAT [facility] bisacodyL (DULCOLAX) suppository 10 mg 10-29 04:55: 15 11-04 02:12 :31 No 10mg 10 mg, Rectal, QDAILYPRN, Starting on Thu10/28/24 at 2255, Until Judi 11/03/24 at 2012, Routine, Constipati on [facility] gabapentin (NEURONTIN) capsule 300 mg 30 02:00: 00 Yes 300mg 300 mg, Oral, TID, First dose (after last modificati on) on Thu10/26/24 at 2000, Until Discontinu ed, Routine [facility] methocarbam oL (ROBAXIN) tablet 1,000 mg 10-26 22:00: 00 11-04 02:12 :31 No 1000mg 1,000 mg, Oral, QID, First dose (after last modificati on) on Thu10/26/24 at 1600, Until Discontinu ed, Routine [facility] fentanyl PF (SUBLIMAZE (PF)) injection 25 mcg 10-26 21:15: 00 10-26 20:19 :00 No 25ug 25 mcg, Slow IV Push, ONCE, 1 dose, On Thu10/26/24 at 1515, Routine [facility] oxyCODONE immediate release tablet 10 mg 10-26 20:23: 43 Yes 10mg 10 mg, Oral, Q6HPRN, Starting on Thu10/26/24 at 1423, Until Discontinu ed, Routine, Pain (scale 7-10), 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 : NADER CASANOVA [facility] LORazepam (ATIVAN) tablet 1 mg 10-26 17:45: 00 10-26 19:04 :00 No 1mg 1 mg, Oral, ONCE, 1 dose, On Thu10/26/24 at 1145, Routine [facility] fentanyl PF (SUBLIMAZE (PF)) injection 50 mcg 10-26 17:45: 00 10-26 19:04 :00 No 50ug 50 mcg, Slow IV Push, ONCE, 1 dose, On Thu10/26/24 at 1145, Routine [facility] morpHINE injection 1 mg 10-25 17:15: 00 10-25 16:34 :00 No 1mg 1 mg, Slow IV Push, ONCE, 1 dose, On Thu10/25/24 at 1115, Routine [facility] LORazepam (ATIVAN) tablet 1 mg 10-25 14:15: 00 10-25 14:47 :00 No 1mg 1 mg, Oral, ONCE, 1 dose, On Thu10/25/24 at 0815, Routine [facility] fentanyl PF (SUBLIMAZE (PF)) injection 50 mcg 10-25 13:45: 00 10-25 14:57 :00 No 50ug 50 mcg, Slow IV Push, ONCE, 1 dose, On Thu10/25/24 at 0745, Routine [facility] acetaminoph en (TYLENOL) tablet 650 mg 10-24 18:00: 00 11-04 02:12 :31 No 650mg 650 mg, Oral, Q6H, First dose on Thu10/24/24 at 1200, Until Discontinu ed, Routine [facility] morpHINE injection 3 mg 10-24 15:00: 00 10-24 15:17 :00 No 3mg 3 mg, Intravenou s, ONCE, 1 dose, On Thu10/24/24 at 0900, Routine [facility] methocarbam oL (ROBAXIN) tablet 500 mg 10-24 14:00: 00 10-26 20:18 :11 No 500mg 500 mg, Oral, QID, First dose on Thu10/24/24 at 0800, Until Discontinu ed, Routine [facility] gabapentin (NEURONTIN) capsule 200 mg 10-24 14:00: 00 10-26 20:18 :11 No 200mg 200 mg, Oral, TID, First dose (after last modificati on) on Thu10/24/24 at 0800, Until Discontinu ed, Routine [facility] traMADoL (ULTRAM) tablet 50 mg 10-24 13:56: 19 11-04 02:12 :31 No 50mg 50 mg, Oral, Q6HPRN, Starting on Thu10/24/24 at 0756, Until Judi 11/03/24 at 2012, Routine, Pain (scale 4-6) [facility] oxyCODONE immediate release tablet 5 mg 10-24 13:55: 58 10-26 20:24 :57 No 5mg 5 mg, Oral, Q6HPRN, Starting on Thu10/24/24 at 0755, Until Thu10/26/24 at 1424, Routine, Pain (scale 7-10), 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 : NADER CASANOVA [facility] LORazepam (ATIVAN) injection 1 mg 10-24 13:45: 00 10-24 13:45 :00 No 1mg 1 mg, Slow IV Push, ONCE, 1 dose, On Thu10/24/24 at 0745, Routine [facility] silver nitrate applicator 2 Applicator 10-24 13:45: 00 10-24 13:45 :00 No 2{appli cator} 2 Applicator , Topical, ONCE, 1 dose, On Thu10/24/24 at 0745, Routine [facility] HYDROcodone -acetaminop hen (NORCO) 10-325 mg tablet 1 tablet 10-24 00:21: 44 10-24 13:55 :36 No 1{tbl} 1 tablet, Oral, Q6HPRN, Starting on Thu10/23/24 at 1821, Until Thu10/24/24 at 0755, Routine, Pain (scale 7-10), Pain (scale 4-6) [facility] fentanyl PF (SUBLIMAZE (PF)) injection 50 mcg 10-24 00:11: 35 11-04 02:12 :31 No 50ug 50 mcg, Slow IV Push, Q4HPRN, Starting on Thu10/23/24 at 1811, Until Judi 11/03/24 at 2012, Routine, breakthrou gh pain [facility] LORazepam (ATIVAN) injection 0.5 mg 10-23 16:15: 00 10-23 15:29 :00 No .5mg 0.5 mg, Slow IV Push, ONCE, 1 dose, On Thu10/23/24 at 1015, Routine [facility] fentanyl PF (SUBLIMAZE (PF)) injection 25 mcg 10-23 16:00: 00 10-23 15:15 :00 No 25ug 25 mcg, Slow IV Push, ONCE, 1 dose, On 10/23/24 at 1000, Routine [facility] HYDROcodone -acetaminop hen (NORCO 5) tablet 1 tablet 10-22 18:45: 00 10-22 19:07 :00 No 1{tbl} 1 tablet, Oral, ONCE, 1 dose, On 10/22/24 at 1245, Routine, PACU [facility] bupivacaine (preserv free) (SENSORCAIN E MPF) 0.25 % (2.5 mg/mL) injection 10-22 18:24: 00 10-22 18:50 :19 No PRN, Starting on 10/22/24 at 1224, Until 10/22/24 at 1250, Routine, Intra-op [facility] sodium hypochlorit e 0.025% (Dakin's) solution 10-22 18:03: 00 10-22 18:50 :19 No PRN, Starting on 10/22/24 at 1203, Until 10/22/24 at 1250, Routine, Intra-op [facility] zinc sulfate (ORAZINC) capsule 50 mg 10-21 20:00: 00 Yes 50mg 50 mg, Oral, TID, First dose on Thu10/21/24 at 1400, Until Discontinu ed, Routine [facility] ascorbic acid (vitamin C) (VITAMIN C) tablet 500 mg 10-21 16:30: 00 11-04 02:12 :31 No 500mg 500 mg, Oral, DAILY, First dose on Thu10/21/24 at 1030, Until Discontinu ed, Routine [facility] multivitami n tablet 10-21 16:30: 00 11-04 02:12 :31 No 1{tbl} 1 tablet, Oral, DAILY, First dose on Thu10/21/24 at 1030, Until Discontinu ed, Routine [facility] ampicillin- sulbactam (UNASYN) 3 g in NaCl 0.9% (NS) 100 mL MINI-BAG 10-19 15:45: 00 11-02 15:44 :00 No 3g 3 g, IV Piggyback, Q6H ABX, 56 doses, First dose on Thu10/19/24 at 0945, Last dose on Thu11/02/24 at 0345, Administer over 30 Minutes, 100 mL, Reason for Anti-Infec tive: Documented Infection, Documented Infection Site: Skin / Soft Tissue, Bone, Duration of Therapy: 14 days [facility] rosuvastati n (CRESTOR) tablet 20 mg 10-19 15:00: 00 Yes 20mg 20 mg, Oral, DAILY, First dose (after last modificati on) on Thu10/19/24 at 0900, Until Discontinu ed, Routine [facility] vancomycin (VANCOCIN/X ELLIA) 1,000 mg in 200 mL sterile water IV Piggyback 10-18 23:00: 00 10-19 14:33 :21 No 15mg/kg 1,000 mg (rounded from 1,075.5 mg = 15 mg/kg ?71.7 kg), IV Piggyback, Q12H ABX, 4 doses, First dose (after last reorder) on Thu10/18/24 at 1700, Last dose on Thu10/20/24 at 0500, Administer over 60 Minutes, 200 mL, Reason for Anti-Infec tive: Documented Infection, Documented Infection Site: Skin / Soft Tissue, Duration of Therapy: Other (see Comments) [facility] ceFEPIme (MAXIPIME) 1,000 mg in NaCl 0.9% (NS) 100 mL MINI-BAG 10-18 21:00: 00 10-19 14:33 :21 No 1000mg 1,000 mg, IV Piggyback, Q8H ABX, 7 doses, First dose (after last modificati on) on Thu10/18/24 at 1500, Last dose on Thu10/20/24 at 1500, Administer over 4 Hours, 100 mL, Reason for Anti-Infec tive: Empiric Therapy for Suspected Infection, Empiric Therapy Site: Skin / Soft tissue, Duration of therapy: 5 days [facility] KCL (KLOR-CON M20) tablet 40 mEq 10-18 18:30: 00 10-18 18:12 :00 No 40meq 40 mEq, Oral, ONCE, 1 dose, On Thu10/18/24 at 1230, Routine [facility] magnesium sulfate in water 4 gram/50 mL (8 %) IV Piggyback 4 g 10-18 18:30: 00 10-18 21:24 :00 No 4g 4 g, IV Piggyback, at 25 mL/hr Administer over 120 Minutes, ONCE, 1 dose, On Thu10/18/24 at 1230, Routine [facility] clopidogreL (PLAVIX) 75 mg tablet 75 mg 10-18 15:00: 00 Yes 75mg 75 mg, Oral, DAILY, First dose on Thu10/18/24 at 0900, Until Discontinu ed, Routine [facility] losartan (COZAAR) tablet 25 mg 10-18 15:00: 00 Yes 25mg 25 mg, Oral, DAILY, First dose on Thu10/18/24 at 0900, Until Discontinu ed, Routine [facility] NIFEdipine ER tablet 60 mg 10-18 15:00: 00 Yes 60mg 60 mg, Oral, DAILY, First dose (after last modificati on) on Thu10/18/24 at 0900, Until Discontinu ed, Routine [facility] sodium ferric gluconate (FERRLECIT) 125 mg in NaCl 0.9% (NS) 100 mL IV piggyback 10-18 15:00: 00 10-25 16:06 :00 No 125mg 125 mg, IV Piggyback, DAILY, 8 doses, First dose on Thu10/18/24 at 0900, Last dose on Thu10/25/24 at 0900, Administer over 60 Minutes, 100 mL [facility] clopidogreL (PLAVIX) 300 mg tablet 300 mg 10-18 00:00: 00 10-18 00:26 :00 No 300mg 300 mg, Oral, ONCE, 1 dose, On Thu10/17/24 at 1800, [facility] HYDROcodone -acetaminop hen (NORCO) 10-325 mg tablet 1 tablet 10-17 18:15: 00 10-17 18:21 :00 No 1{tbl} 1 tablet, Oral, Once, 1 dose, On Thu10/17/24 at 1215, [facility] vancomycin (VANCOCIN/X ELLIA) 1,000 mg in 200 mL sterile water IV Piggyback 10-16 17:00: 00 10-18 12:22 :00 No 15mg/kg 1,000 mg (rounded from 1,075.5 mg = 15 mg/kg ?71.7 kg), IV Piggyback, Q12H ABX, 4 doses, First dose (after last modificati on) on Thu10/16/24 at 1100, Last dose on Thu10/18/24 at 0221, Administer over 60 Minutes, 200 mL, Reason for Anti-Infec tive: Documented Infection, Documented Infection Site: Skin / Soft Tissue, Duration of Therapy: Once (ED) [facility] iopamidol (ISOVUE 370-500 mL) injection 10-16 16:21: 00 Yes PRN, Starting on Thu10/16/24 at 1021, Until Discontinu ed, Routine, Intra-op [facility] bupivacaine (preserv free) (SENSORCAIN E MPF) 0.25 % (2.5 mg/mL) injection 10-16 16:14: 00 Yes PRN, Starting on Thu10/16/24 at 1014, Until Discontinu ed, Routine, Intra-op [facility] NIFEdipine ER tablet 30 mg 10-16 15:00: 00 10-17 17:36 :33 No 30mg 30 mg, Oral, DAILY, First dose on Thu10/16/24 at 0900, Until Discontinu ed, Routine [facility] heparin 1,000 unit/mL injection 10-16 14:33: 00 Yes PRN, Starting on Thu10/16/24 at 0833, Until Discontinu ed, Routine, Intra-op [facility] morpHINE injection 2 mg 10-15 17:49: 29 10-24 00:11 :50 No 2mg 2 mg, Slow IV Push, Q4HPRN, Starting on 10/15/24 at 1149, Until 10/23/24 at 1811, Routine, Pain (scale 7-10) [facility] HYDROcodone -acetaminop hen (NORCO 5) tablet 1 tablet 10-15 17:48: 48 10-24 00:21 :54 No 1{tbl} 1 tablet, Oral, Q6HPRN, Starting on 10/15/24 at 1148, Until 10/23/24 at 1821, Routine, Pain (scale 4-6) [facility] acetaminoph en (TYLENOL) tablet 500 mg 10-15 17:48: 37 Yes 500mg 500 mg, Oral, Q6HPRN, Starting on 10/15/24 at 1148, Until Discontinu ed, Routine, Pain (scale 1-3) [facility] polyethylen e glycol 3350 powder 17 g 10-15 15:00: 00 11-04 02:12 :31 No 17g 17 g, Oral, QAM, First dose on 10/15/24 at 0900, Until Discontinu ed, Routine [facility] KCL (KLOR-CON M20) tablet 40 mEq 10-15 13:00: 00 10-15 15:04 :00 No 40meq 40 mEq, Oral, ONCE, 1 dose, On 10/15/24 at 0700, Routine [facility] morpHINE injection 4 mg 10-15 06:50: 49 10-15 17:49 :47 No 4mg 4 mg, Slow IV Push, Q4HPRN, Starting on 10/15/24 at 0050, Until 10/15/24 at 1149, Routine, Pain (scale 7-10) [facility] Lidocaine (LIDOCARE) 4 % patch 1 Patch 10-15 05:30: 00 10-15 18:46 :00 No 1{patch } 1 Patch, Topical, Administer over 12 Hours, ONCE, 1 dose, On Thu10/14/24 at 2330, Routine [facility] hydralAZINE (APRESOLINE ) injection 10 mg 10-15 04:31: 51 11-04 02:12 :31 No 10mg 10 mg, Slow IV Push, Q4HPRN, Starting on Thu10/14/24 at 2231, Until Judi 11/03/24 at 2011, Routine, DBP=>100; SBP=>160, HR < 70 [facility] labetaloL (NORMODYNE) 5 mg/mL injection 10 mg 10-15 04:31: 51 11-04 02:12 :31 No 10mg 10 mg, Slow IV Push, Q4HPRN, Starting on Thu10/14/24 at 2231, Until Judi 11/03/24 at 2011, Routine, SBP > 160 and HR > 70 [facility] hydralAZINE (APRESOLINE ) injection 5 mg 10-15 03:45: 00 10-15 03:08 :00 No 5mg 5 mg, Slow IV Push, ONCE, 1 dose, On Thu10/14/24 at 2145, STAT [facility] heparin (porcine) injection 5,000 Units 10-15 02:00: 00 11-04 02:12 :31 No 5000U 5,000 Units, Subcutaneo us, Q12H, First dose on Thu10/14/24 at 2000, Until Discontinu ed, Routine [facility] fentanyl PF (SUBLIMAZE (PF)) injection 25 mcg 10-15 00:52: 01 10-24 00:11 :50 No 25ug 25 mcg, Slow IV Push, Q4HPRN, Starting on Thu10/14/24 at 1852, Until Thu10/23/24 at 1811, Routine, breakthrou gh pain [facility] oxyCODONE immediate release tablet 5 mg 10-15 00:52: 01 10-15 17:49 :47 No 5mg 5 mg, Oral, Q6HPRN, Starting on Thu10/14/24 at 1852, Until 10/15/24 at 1149, Routine, Pain (scale 7-10), 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 : NADER CASANOVA [facility] ondansetron (ZOFRAN (PF)) injection 4 mg 10-15 00:51: 47 11-04 02:12 :31 No 4mg [facility] glucagon HCL injection 1 mg 10-15 00:50: 28 11-04 02:12 :31 No 1mg [facility] dextrose 50 % in water (D50W) injection 25 mL 10-15 00:50: 28 11-04 02:12 :31 No 25mL [facility] gabapentin (NEURONTIN) capsule 100 mg 10-14 20:00: 00 10-24 13:55 :36 No 100mg 100 mg, Oral, TID, First dose on Thu10/14/24 at 1400, Until Discontinu ed, Routine [facility] lidocaine 1% (PF) (XYLOCAINE) injection 10-14 17:56: 00 Yes PRN, Starting on Thu10/14/24 at 1156, Until Discontinu ed, Routine, Intra-op [facility] iohexoL (OMNIPAQUE 300-50 mL)) injection 10-14 17:44: 00 Yes PRN, Starting on Thu10/14/24 at 1144, Until Discontinu ed, Routine, Intra-op [facility] heparin 5,000 unit/mL 1,000 Units in NaCl 0.9% (NS) 1,000 mL OR irrigation 10-14 17:44: 00 Yes PRN, Starting on Thu10/14/24 at 1144, Intra-op [facility] vancomycin placeholder : dosing by pharmacy 10-14 17:09: 56 Yes Routine, Rx Placeholde r, Starting on Thu10/14/24 at 1109, Until Discontinu ed [facility] vancomycin (VANCOCIN/X ELLIA) 1,000 mg in 200 mL sterile water IV Piggyback 10-14 15:45: 00 10-16 15:48 :19 No 15mg/kg 1,000 mg (rounded from 1,075.5 mg = 15 mg/kg ?71.7 kg), IV Piggyback, Q12H ABX, 6 doses, First dose (after last reorder) on Thu10/14/24 at 0945, Last dose on Thu10/16/24 at 2145, Administer over 60 Minutes, 200 mL, Reason for Anti-Infec tive: Documented Infection, Documented Infection Site: Skin / Soft Tissue, Duration of Therapy: Once (ED) [facility] aspirin chewable tablet 162 mg 10-14 15:00: 00 11-04 02:12 :31 No 162mg 162 mg, Oral, DAILY, First dose on Thu10/14/24 at 0900, Until Discontinu ed, Routine [facility] pantoprazol e (PROTONIX) EC tablet 40 mg 10-14 15:00: 00 11-04 02:12 :31 No 40mg 40 mg, Oral, DAILY, First dose on Thu10/14/24 at 0900, Until Discontinu ed [facility] rosuvastati n (CRESTOR) tablet 10 mg 10-14 15:00: 00 10-19 05:59 :36 No 10mg 10 mg, Oral, DAILY, First dose on Thu10/14/24 at 0900, Until Discontinu ed, Routine [facility] levothyroxi ne (SYNTHROID) tablet 50 mcg 10-14 12:00: 00 11-04 02:12 :31 No 50ug 50 mcg, Oral, QAM-0600, First dose on Thu10/14/24 at 0600, Until Discontinu ed, Routine [facility] ceFEPIme (MAXIPIME) 1,000 mg in NaCl 0.9% (NS) 100 mL MINI-BAG 10-14 05:00: 00 10-18 20:01 :45 No 1000mg 1,000 mg, IV Piggyback, Q8H ABX, 15 doses, First dose on Thu10/13/24 at 2300, Last dose on Thu10/18/24 at 1500, Administer over 4 Hours, 100 mL, Reason for Anti-Infec tive: Empiric Therapy for Suspected Infection, Empiric Therapy Site: Skin / Soft tissue, Duration of therapy: 5 days [facility] cadexomer iodine (IODOSORB GEL) 0.9 % gel 10-13 23:30: 00 11-04 02:12 :31 No Topical, DAILY, First dose on Thu10/13/24 at 1730, Until Discontinu ed, Routine [facility] enoxaparin (LOVENOX) injection 40 mg 10-13 23:00: 00 10-15 00:53 :10 No 40mg 40 mg, Subcutaneo us, DAILY, First dose on Thu10/13/24 at 1700, Until Discontinu ed, Routine [facility] ceFEPIme (MAXIPIME) 1,000 mg in NaCl 0.9% (NS) 100 mL MINI-BAG 10-13 21:15: 00 10-13 22:40 :00 No 1000mg 1,000 mg, IV Piggyback, ONCE, 1 dose, On Thu10/13/24 at 1515, Administer over 30 Minutes, 100 mL, Reason for Anti-Infec tive: Empiric Therapy for Suspected Infection, Empiric Therapy Site: Skin / Soft tissue, Duration of therapy: 5 days [facility] vancomycin (VANCOCIN) 1,000 mg in NaCl 0.9% (NS) 250 mL VIAL-MATE IV piggyback 10-13 21:00: 00 10-13 21:29 :00 No 15mg/kg 1,000 mg (rounded from 1,075.5 mg = 15 mg/kg ?71.7 kg), IV Piggyback, ONCE, 1 dose, On Thu10/13/24 at 1500, Administer over 60 Minutes, 250 mL, Reason for Anti-Infec tive: Documented Infection, Documented Infection Site: Skin / Soft Tissue, Duration of Therapy: Once (ED) [facility] HYDROcodone -acetaminop hen (NORCO 5) tablet 1 tablet 10-13 20:35: 15 10-15 17:49 :47 No 1{tbl} 1 tablet, Oral, Q6HPRN, Starting on Judi 10/13/24 at 1435, Until 10/15/24 at 1149, Routine, Pain (scale 4-6) [facility] HYDROcodone -acetaminop hen (NORCO 5) tablet 1 tablet 2023-09 03:30: 00 09-25 03:49 :00 No 1{tbl} 1 tablet, Oral, ONCE, 1 dose, On 09/24/24 at 2130, [facility] hydrocodone 7.5 mg-acetamin ophen 325 mg tablet 2023-09 00:00: 00 Yes 1mg [facility] pantoprazol e (PROTONIX) EC tablet 40 mg 2023-09 15:00: 00 09-20 18:48 :35 No 40mg [facility] honey (MEDIHONEY (HONEY)) 80 % topical gel 2023-09 15:00: 00 09-20 18:48 :35 No Topical, DAILY, First dose on Thu09/21/24 at 0900, Until Discontinu ed, Routine [facility] enoxaparin (LOVENOX) injection 40 mg 2023-09 23:00: 00 09-20 18:48 :35 No 40mg [facility] piperacilli n-tazobacta m (ZOSYN) 3.375 g in NaCl 0.9% (NS) 100 mL MINI-BAG 2023-09 21:00: 00 09-20 18:48 :35 No 3.375g 3.375 g, IV Piggyback, Q8H ABX, 5 doses, First dose (after last modificati on) on Thu09/20/24 at 1500, Last dose on Thu09/21/24 at 2300, Administer over 4 Hours, 100 mL, Reason for Anti-Infec tive: Empiric Therapy for Suspected Infection, Empiric Therapy Site: Skin / Soft tissue, Duration of therapy: 5 days [facility] lisinopriL (PRINIVIL,Z ESTRIL) tablet 5 mg 2023-09 18:15: 00 09-20 17:37 :00 No 5mg 5 mg, Oral, ONCE, 1 dose, On Thu09/20/24 at 1215, Routine [facility] vancomycin (VANCOCIN/X ELLIA) 1,000 mg in 200 mL sterile water IV Piggyback 2023-09 16:00: 00 09-20 18:48 :35 No 15mg/kg 1,000 mg (rounded from 987 mg = 15 mg/kg ?65.8 kg), IV Piggyback, Q12H ABX, 9 doses, First dose (after last modificati on) on Thu09/20/24 at 1000, Last dose on Thu09/24/24 at 1000, Administer over 60 Minutes, 200 mL, Reason for Anti-Infec tive: Empiric Therapy for Suspected Infection, Empiric Therapy Site: Skin / Soft tissue, Duration of therapy: 5 days [facility] piperacilli n-tazobacta m (ZOSYN) 3.375 g in NaCl 0.9% (NS) 100 mL MINI-BAG 2023-09 14:00: 00 09-20 13:36 :26 No 3.375g 3.375 g, IV Piggyback, Q8H ABX, 5 doses, First dose on Thu09/20/24 at 0800, Last dose on Thu09/21/24 at 1600, Administer over 4 Hours, 100 mL, Reason for Anti-Infec tive: Empiric Therapy for Suspected Infection, Empiric Therapy Site: Skin / Soft tissue, Duration of therapy: 5 days [facility] omeprazole 40 mg capsule 2023-09 12:48: 35 Yes 40mg Take 1 capsule by mouth in the morning. [facility] vancomycin placeholder : dosing by pharmacy 2023-09 11:25: 44 09-20 18:48 :35 No Routine, Rx Placeholde r, Starting on Thu09/20/24 at 0525, Until Thu09/20/24 at 1248 [facility] ondansetron (ZOFRAN (PF)) injection 4 mg 2023-09 11:24: 34 09-20 18:48 :35 No 4mg [facility] morphine (2 mg/mL) injection 2 mg 2023-09 11:24: 34 09-20 18:48 :35 No 2mg 2 mg, Slow IV Push, Q4HPRN, Starting on Thu09/20/24 at 0524, Until Thu09/20/24 at 1248, Routine, Pain (scale 7-10) [facility] traMADoL (ULTRAM) tablet 50 mg 2023-09 11:24: 34 09-20 18:48 :35 No 50mg 50 mg, Oral, Q8HPRN, Starting on Thu09/20/24 at 0524, Until Thu09/20/24 at 1248, Routine, Pain (scale 4-6) [facility] acetaminoph en (TYLENOL) tablet 650 mg 2023-09 11:24: 34 09-20 18:48 :35 No 650mg [facility] clindamycin in 5 % dextrose (CLEOCIN) 600 mg/50 mL IV piggyback RTU 600 mg 2023-09 09:00: 00 09-20 09:50 :00 No 600mg 600 mg, IV Piggyback, ONCE, 1 dose, On Thu09/20/24 at 0300, Administer over 30 Minutes, 50 mL, Reason for Anti-Infec tive: Empiric Therapy for Suspected Infection, Empiric Therapy Site: Skin / Soft tissue, Duration of therapy: Once (ED), Restricted use approved by: ED PROVIDER [facility] ketorolac (TORADOL) injection 15 mg 2023-09 08:00: 00 09-20 07:30 :00 No 15mg 15 mg, Slow IV Push, ONCE, 1 dose, On Thu09/20/24 at 0200, Routine [facility] amoxicillin -clavulanat e (AUGMENTIN) 875-125 mg per tablet 2023-09 00:00: 00 09-27 05:59 :00 No [id number] 1{tbl} Take 1 tablet by mouth in the morning and 1 tablet in the evening. Do all this for 6 days. [facility] methocarbam oL (ROBAXIN) tablet 500 mg 2023-09 2-10 16:00: 00 09-06 15:52 :00 No 500mg 500 mg, Oral, ONCE, 1 dose, On Thu09/06/24 at 1000, [facility] albuterol 90 mcg/actuati on inhaler 2023-09 2 00:00: 00 09-20 00:00 :00 No [id number] 2{puff} Inhale 2 Puffs every 4 (four) hours as needed for Wheezing or Shortness of Breath. [facility] benzonatate 100 mg capsule 2023-09 00:00: 00 09-20 00:00 :00 No [id number] 100mg Take 1 capsule by mouth 3 (three) times daily as needed for Cough. [facility] doxycycline hyclate 100 mg capsule 2023-09 00:00: 00 09-17 05:59 :00 No [id number] 100mg Take 1 capsule by mouth in the morning and 1 capsule in the evening. Do all this for 10 days. [facility] ondansetron HCl 4 mg tablet 2023-09 00:00: 00 Yes 1mg [facility] amoxicillin 875 mg-potassiamelia morrison clavulanate 125 mg tablet 2023-09 00:00: 00 Yes 1mg [facility] omeprazole 40 mg capsule,del ayed release 2023-09 00:00: 00 Yes 1mg [facility] bromphenira mine-pseudo ephedrine-D M 2 mg-30 mg-10 mg/5 mL oral syrup 2023-09 00:00: 00 Yes 10mg/5 mL [facility] cephalexin 500 mg capsule 2023-09- 00:00: 00 Yes 1mg [facility] ondansetron HCl 4 mg tablet 2024-0 9-13 00:00: 00 Yes 1mg [facility] Nitrofurant oin&Nit. Macrocryst (MACROBID) 100 mg capsule 06-09 00:00: 00 06-17 04:59 :00 No [id number] 100mg Take 1 capsule by mouth in the morning and 1 capsule in the evening. Do all this for 7 days. [facility] polyethylen e glycol 3350 17 gram/dose powder 06-06 00:00: 00 09-20 00:00 :00 No [id number] 17g Take 17 g by mouth in the morning. [facility] estradioL (ESTRACE) 0.01 % (0.1 mg/gram) vaginal cream 06-06 00:00: 00 09-20 00:00 :00 No [id number] Apply 1g vaginally at bedtime 2 or 3 times per week [facility] omeprazole 40 mg capsule,del ayed release 8 00:00: 00 Yes 1mg [facility] Nitrofurant oin&Nit. Macrocryst 100 mg capsule - 00:00: 00 09-20 00:00 :00 No [id number] 100mg Take 1 capsule by mouth in the morning and 1 capsule in the evening. [facility] oxybutynin 10 mg 24 hr tablet 628 00:00: 00 06-06 00:00 :00 No [id number] 10mg Take 1 tablet by mouth every morning. [facility] levothyroxi ne 50 mcg tablet 23 00:00: 00 Yes mcg [facility] methotrexat e sodium 2.5 mg tablet 4-04 00:00: 00 Yes mg [facility] prednisone 2.5 mg tablet 4-04 00:00: 00 Yes mg [facility] omeprazole 40 mg capsule,del ayed release 3-29 00:00: 00 Yes mg [facility] hydrocodone 5 mg-acetamin ophen 325 mg tablet 3-27 00:00: 00 Yes mg [facility] oxybutynin chloride ER 10 mg tablet,exte nded release 24 hr 00:00: 00 Yes mg [facility] TAKE 1 CAPSULE BY MOUTH ONCE DAILY 00:00: 00 02-09 00:00 :00 No 40 [facility] hydrocodone 5 mg-acetamin ophen 325 mg tablet 11-25 00:00: 00 Yes mg [facility]ones CALL 911. SPR CONTENTS OF ONE SPRAYER (0.1ML) INTO ONE NOSTRIL. REPEAT IN 2-3 MIN IF SYMPTOMS OF OPIOID EMERGENCY PERSIST, ALTERNATE NOSTRILS 11-25 00:00: 00 Yes [facility] HYDROCODONE BITARTRATE/ ACETAMINOPH E N 5-325 MG TABS 10-28 00:00: 00 Yes [facility]ones levothyroxi ne 50 mcg tablet 10-23 00:00: 00 Yes mcg [facility] TAKE 1 TABLET EVERY 12 HOURS DAILY. 10-07 00:00: 00 02-09 00:00 :00 No 500 [facility] OMEPRAZOLE 40 MG CPDR 10-07 00:00: 00 02-09 00:00 :00 No [facility] oxybutynin 10 mg 24 hr tablet 2022-09 00:00: 00 03-21 00:00 :00 No [id number] 10mg Take 1 tablet by mouth every morning. [facility] TAKE 1 TABLET BY MOUTH THREE TIMES DAILY 2022-09 00:00: 00 Yes [facility] METHOTREXAT E 2.5 MG TABS 2022-09 00:00: 00 Yes [facility] HYDROCODONE BITARTRATE/ ACETAMINOPH E N 5-325 MG TABS 2022-09 00:00: 00 Yes [facility]ones INHALE 2 PUFFS EVERY 4-6 HOURS NEEDED. 2022-09 00:00: 00 Yes [id number] [facility] TAKE 1 TABLET DAILY. 2022-09 00:00: 00 Yes 50 [facility] Quinones USE 1 SPRAY IN EACH NOSTRIL ONCE DAILY. 2023-1 0-30 00:00: 00 Yes 50 [facility] OMEPRAZOLE 40 MG CPDR 2022-09 0-30 00:00: 00 02-09 00:00 :00 No [facility] TAKE 1 TABLET BY MOUTH TWICE A DAY 2022-09 0-19 00:00: 00 Yes [facility] TAKE 1 TABLET BY MOUTH THREE TIMES DAILY 2022-09 0- 00:00: 00 Yes [facility] TAKE 1 TABLET BY MOUTH EVERY DAY IN THE MORNING 06-05 00:00: 00 Yes [facility] oxybutynin 10 mg 24 hr tablet 06-05 00:00: 00 09-07 00:00 :00 No [id number] 10mg Take 1 tablet by mouth every morning. [facility] DOXYCYCLINE HYCLATE 100 mg capsule 06-04 00:00: 00 09-06 00:00 :00 No [id number] 100mg TAKE 1 CAPSULE BY MOUTH EVERY 12 HOURS. [facility] OMEPRAZOLE 40 MG CPDR 9-04 00:00: 00 02-09 00:00 :00 No [facility] METHOTREXAT E SODIUM 2.5 MG TABS - 00:00: 00 Yes William Quinones OXYBUTYNIN CHLORIDE ER 10 MG TB24 - 00:00: 00 Yes William Quinones OXYBUTYNIN 10 mg 24 hr tablet 05-18 00:00: 00 06-05 00:00 :00 No [id number] 10mg TAKE 1 TABLET BY MOUTH EVERY DAY IN THE MORNING [facility] TAKE 1 TABLET BY MOUTH THREE TIMES DAILY -16 00:00: 00 Yes William Quinones METHYLPREDN ISOLONE DOSE PACK 4 MG TBPK 04-01 00:00: 00 Yes William Quinones TAKE 1 CAPSULE BY MOUTH EVERY 12 HOURS. 04-01 00:00: 00 Yes William Quinones methylPREDN ISolone (MEDROL, BRYON,) 4 mg tablets 04-01 00:00: 00 09-20 00:00 :00 No [id number] 84mg Take 21 tablets by mouth SEE-INSTRU CTIONS. follow package directions [facility] doxycycline hyclate 100 mg capsule 04-01 00:00: 00 06-04 00:00 :00 No [id number] 100mg Take 1 capsule by mouth every 12 (twelve) hours. [facility] TAKE 1 TABLET TWICE DAILY UNTIL FINISHED. 03-26 00:00: 00 02-09 00:00 :00 No [id number] William Quinones TAKE 1 TABLET BY MOUTH 3 TIMES DAILY 03-26 00:00: 00 02-09 00:00 :00 No [id number] William Quinones FLUTICASONE PROPIONATE 50 MCG/ACT SUSP 03-23 00:00: 00 Yes William Quinones TAKE 1 TABLET BY MOUTH THREE TIMES DAILY 03-18 00:00: 00 Yes William Quinones doxycycline hyclate (Vibramycin ) capsule 100 mg 03-10 21:45: 00 03-10 21:51 :00 No 100mg 100 mg, Oral, ONCE, 1 dose, On Thu03/10/23 at 1645, SARAH
Re ason for Anti-Infec tive: Documented Infection< br>Documen sean Infection Site: Skin / Soft Tissue
Duration of Therapy: 10 days [facility] NaCl 0.9% (NS) bolus infusion 1,000 mL 03-10 21:15: 00 03-10 22:14 :00 No 1000mL at 999 mL/hr, 1,000 mL, IV Infusion, ONCE, 1 dose, On Thu03/10/23 at 1615, STAT [facility] cefTRIAXone (ROCEPHIN) 1,000 mg in NaCl 0.9% (NS) 100 mL MINI-BAG 03-10 20:15: 00 03-10 21:04 :00 No 1000mg 1,000 mg, IV Piggyback, ONCE, 1 dose, On Thu03/10/23 at 1515, Administer over 30 Minutes, 100 mL
Reas on for Anti-Infec tive: Documented Infection< br>Documen sean Infection Site: Skin / Soft Tissue
Duration of Therapy: Other (see Comments) [facility] TAKE 1 CAPSULE BY MOUTH EVERY DAY IN THE MORNING AT NOON AND IN THE EVENING FOR 10 DAYS 03-10 00:00: 00 Yes William Quinones DOXYCYCLINE HYCLATE 100 MG 03-10 00:00: 00 Yes William Quinones doxycycline hyclate 100 mg capsule 03-10 00:00: 00 09-06 00:00 :00 No [id number] 100mg Take 1 capsule by mouth in the morning and 1 capsule in the evening. [facility] cephALEXin (KEFLEX) 500 mg capsule 03-10 00:00: 00 03-21 04:59 :00 No [id number] 500mg Take 1 capsule by mouth in the morning and 1 capsule at noon and 1 capsule in the evening. Do all this for 10 days. [facility] METHOTREXAT E SODIUM 2.5 MG TABS 02-25 00:00: 00 Yes William Quinones METHOTREXAT E 2.5 MG TABS 02-24 00:00: 00 Yes William Quinones ALBUTEROL SULFATE HFA 108 (90 Base) MCG/ACT AERS 02-24 00:00: 00 Yes William Quinones FLUTICASONE PROPIONATE 50 MCG/ACT SUSP 02-24 00:00: 00 Yes William Quinones INHALE 2 PUFFS EVERY 4-6 HOURS NEEDED. 02-23 00:00: 00 02-09 00:00 :00 No [id number] William Quinones USE 1 SPRAY IN EACH NOSTRIL ONCE DAILY. 02-23 00:00: 00 02-09 00:00 :00 No 50 William Quinones TAKE 1 CAPSULE BY MOUTH ONCE DAILY 02-23 00:00: 00 02-09 00:00 :00 No 40 William Quinones HYDROCODONE BITARTRATE/ ACETAMINOPH E N 5-325 MG TABS 02-18 00:00: 00 Yes William Quinones TAKE 1 TABLET BY MOUTH EVERY DAY FOR 90 DAYS 2023-0 5-24 00:00: 00 Yes William Quinones PREDNISONE 2.5 MG TABS 0 5-24 00:00: 00 Yes William Quinones METHOTREXAT E 2.5 MG TABS 0 5-24 00:00: 00 Yes William Quinones OXYBUTYNIN CHLORIDE ER 10 MG TB24 0 5-17 00:00: 00 Yes William Quinones oxybutynin 10 mg 24 hr tablet 0 17 00:00: 00 05-18 00:00 :00 No [id number] 10mg Take 1 tablet by mouth in the morning. [facility] PREDNISONE 2.5 MG TABS 0 5-13 00:00: 00 Yes William Quinones DICLOFENAC SODIUM 1 % GEL 01-21 00:00: 00 Yes iWlliam Quinones OMEPRAZOLE 40 MG CPDR 24 00:00: 00 02-09 00:00 :00 No William Annie Joni APPLY TOPICALLY FOUR TIMES DAILY 0 - 00:00: 00 Yes William Quinones HYDROCODONE BITARTRATE/ ACETAMINOPH E N 5-325 MG TABS 12-24 00:00: 00 Yes William Annie Joni TAKE 1 TABLET TWICE DAILY. 12-24 00:00: 00 02-09 00:00 :[address] 1 TAB UNDER TONGUE EVERY 4-6 HOURS NEEDED FOR NAUSEA 12-24 00:00: 00 02-09 00:00 :00 No 4 William Quinones METHOTREXAT E SODIUM 2.5 MG TABS 0 - 00:00: 00 Yes William Annie Joni TAKE 1 TABLET BY MOUTH THREE TIMES DAILY 0 3- 00:00: 00 Yes William Quinones APPLY TO THE AFFECTED AREA FOUR TIMES DAILY 0 3- 00:00: 00 Yes William Annie Joni TAKE 1 TABLET BY MOUTH EVERY DAY 0 2-14 00:00: 00 Yes William Annie Joni TAKE 1 CAPSULE BY MOUTH ONCE DAILY 0 2-07 00:00: 00 02-09 00:00 :00 No 40 William Quinones APPLY TO UPPER EXTREMITIES , 2 GM OF GEL TO AFFECTED AREA 4 TIMES DAILY. DO NOT APPLY MORE THAN 8 GM DAILY TO ANY ONE AFFECTED JOINT. 11-04 00:00: 00 02-09 00:00 :00 No 1 William Quinones TAKE 1 TABLET DAILY. 11-04 00:00: 00 02-09 00:00 :00 No 50 William Quinones TAKE 1 TABLET TWICE DAILY UNTIL FINISHED. 11-03 00:00: 00 02-09 00:00 :00 No [id number] William Quinones DICLOFENAC SODIUM 1 % GEL 10-29 00:00: 00 Yes William Quinones LEVOFLOXACI N 750 MG TABS 10-06 00:00: 00 Yes William Quinones TAKE 8 TABLETS ORALLY ONCE WEEKLY 60 DAYS 84 10-01 00:00: 00 Yes William Quinones HYDROCODONE BITARTRATE/ ACETAMINOPH E N 5-325 MG TABS 10-01 00:00: 00 Yes William Quinones DICLOFENAC SODIUM 1 % GEL 10-01 00:00: 00 Yes William Quinones HYDROCODONE BITARTRATE/ ACETAMINOPH E N 5-325 MG TABS 2021-09 00:00: 00 Yes William Quinones APPLY TOPICALLY TO THE AFFECTED AREA FOUR TIMES DAILY FOR 25 DAYS 2021-09 00:00: 00 Yes William Quinones TAKE 1 CAPSULE BY MOUTH EVERY 6 (SIX) HOURS FOR 5 DAYS. 2021-09 00:00: 00 Yes William Quinones cephALEXin 250 mg capsule 2021-09 00:00: 00 09-03 05:59 :00 No [id number] 250mg Take 1 capsule by mouth every 6 (six) hours for 5 days. [facility] cefUROXime 250 mg tablet 2021-09 00:00: 00 08-28 00:00 :00 No [id number] 250mg Take 1 tablet by mouth. [facility] DICLOFENAC SODIUM 1 % GEL 2021-09 00:00: 00 Yes William Quinones TAKE 1 TABLET BY MOUTH THREE TIMES DAILY 2021-09 00:00: 00 Yes William Quinones levoFLOXaci n (LEVAQUIN) tablet 750 mg 2021-09 15:00: 00 07-23 14:20 :00 No 750mg 750 mg, Oral, ONCE NOW, 1 dose, On Thu07/23/22 at 1000, SARAH
Re ason for Anti-Infec tive: Documented Infection< br>Documen sean Infection Site: Urine
D uration of Therapy: 7 days [facility] ondansetron (ZOFRAN-ODT ) disintegrat ing tablet 4 mg 2021-09 14:00: 00 07-23 13:35 :00 No 4mg 4 mg, Oral, ONCE, 1 dose, On Thu07/23/22 at 0900, Routine [facility] acetaminoph en (TYLENOL) tablet 650 mg 2021-09 13:30: 00 07-23 13:35 :00 No 650mg 650 mg, Oral, ONCE, 1 dose, On Thu07/23/22 at 0830, SARAH [facility] TAKE 1 TABLET BY MOUTH EVERY 24 HOURS. 2021-09 00:00: 00 Yes William Quinones levoFLOXaci n (LEVAQUIN) 750 mg tablet 2021-09 00:00: 00 08-28 00:00 :00 No [id number] 750mg Take 1 tablet by mouth every 24 (twenty-fo ur) hours. [facility] TAKE 1 TABLET BY MOUTH IN THE MORNING AND 1 TABLET IN THE EVENING. DO ALL THIS FOR 5 DAYS. 2021-09 00:00: 00 Yes William Quinones cefUROXime 250 mg tablet 2021-09 00:00: 00 07-27 04:59 :00 No [id number] 250mg Take 1 tablet by mouth in the morning and 1 tablet in the evening. Do all this for 5 days. [facility] OXYBUTYNIN CHLORIDE ER 5 MG TB24 2021-09 00:00: 00 Yes William Quinones TAKE 1 TABLET BY MOUTH THREE TIMES DAILY 2021-09 00:00: 00 Yes William Quinones DICLOFENAC SODIUM 1 % GEL 2021-09 0-12 00:00: 00 Yes William Quinones TAKE 1 CAPSULE BY MOUTH EVERY DAY 0 9-20 00:00: 00 No HYDROCODONE BITARTRATE/ ACETAMINOPH E N 5-325 MG TABS 0 9-20 00:00: 00 No HYDROCODONE BITARTRATE/ ACETAMINOPH E N 5-325 MG TABS 0 06-17 00:00: 00 Yes William Quinones TAKE 1 CAPSULE BY MOUTH EVERY DAY 0 06-17 00:00: 00 02-09 00:00 :00 No William Quinones APPLY TOPICALLY TO THE AFFECTED AREA FOUR TIMES DAILY FOR 25 DAYS 0 06-11 00:00: 00 Yes William Quinones TAKE 1 TABLET DAILY. 0 06-04 00:00: 00 02-09 00:00 :00 No 50 William Quinones FAMOTIDINE 40 MG TABS 0 - 00:00: 00 Yes William Quinones &lt 0 8-16 00:00: 00 No &lt 2021-0 8-16 00:00: 00 Yes William Quinones TAKE 1 CAPSULE BY MOUTH EVERY DAY 0 8-15 00:00: 00 No 40 TAKE 1 TABLET BY MOUTH EVERY DAY 0 -15 00:00: 00 Yes 5 William Quinones TAKE 1 TABLET BY MOUTH EVERYDAY AT BEDTIME 0 -15 00:00: 00 Yes 10 William Quinones TAKE 1 CAPSULE BY MOUTH EVERY DAY 0 -15 00:00: 00 Yes 40 William Quinones TAKE 1 TABLET BY MOUTH EVERY DAY FOR 90 DAYS 0 8- 00:00: 00 Yes William Valencia Joni METHOTREXAT E 2.5 MG TABS 0 8- 00:00: 00 Yes William Quinones TAKE 1 TABLET BY MOUTH EVERY DAY 0 - 00:00: 00 Yes William Quinones TAKE 1 TABLET BY MOUTH THREE TIMES A DAY 2021-0 8- 00:00: 00 No TAKE 1 TABLET BY MOUTH THREE TIMES A DAY 2021-0 8- 00:00: 00 Yes William Quinones &lt 2021-0 7- 00:00: 00 Yes William Quinones Dose Unknown 2021-0 7-27 00:00: 00 No 8 TABLETS ORALLY ONCE A WEEK 60 DAYS 2021-0 7-27 00:00: 00 No 25 Dose Unknown 2021-0 7-27 00:00: 00 Yes William Quinones &lt 2021-0 7-27 00:00: 00 Yes 5 William Quinones TAKE 1 TABLET BY MOUTH THREE TIMES DAILY UNTIL ALL TAKEN 2021-0 7-27 00:00: 00 Yes William Quinones 8 TABLETS ORALLY ONCE A WEEK 60 DAYS 2021-0 7-27 00:00: 00 Yes 25 William Quinones APPLY TOPICALLY TO THE AFFECTED AREA FOUR TIMES DAILY FOR 25 DAYS 2021-0 7- 00:00: 00 Yes William Quinones TAKE 1 CAPSULE BY MOUTH EVERY DAY 2021-0 7-18 00:00: 00 No 40 TAKE 1 TABLET BY MOUTH THREE TIMES DAILY 2021-0 7-18 00:00: 00 No &lt 2-0 7-18 00:00: 00 No 10 APPLY TOPICALLY TO THE AFFECTED AREA FOUR TIMES DAILY FOR 25 DAYS 2021-0 7-18 00:00: 00 No &lt 2-0 7-18 00:00: [address] 1 PUFF EVERY 6-8 HOURS NEEDED FOR WHEEZING 2021-0 -18 00:00: 00 No &lt 2-0 7-18 00:00: 00 No TAKE 1 CAPSULE BY MOUTH EVERY DAY 2021-0 7-18 00:00: 00 Yes 40 William Quinones TAKE 1 TABLET BY MOUTH THREE TIMES DAILY 2021-0 7-18 00:00: 00 Yes William Quinones &lt 2021-0 7-18 00:00: 00 Yes 10 William Quinones APPLY TOPICALLY TO THE AFFECTED AREA FOUR TIMES DAILY FOR 25 DAYS 2021-0 7-18 00:00: 00 Yes William Quinones &lt 2-0 7-18 00:00: [address] 1 PUFF EVERY 6-8 HOURS NEEDED FOR WHEEZING 2-0 7-18 00:00: 00 Yes William Quinones &lt 2022-0 7-18 00:00: 00 Yes William Quinones TAKE 1 TABLET BY MOUTH THREE TIMES DAILY UNTIL ALL TAKEN 2021-0 7-14 00:00: 00 No &lt 2021-0 - 00:00: 00 No 500 TAKE 1 TABLET BY MOUTH THREE TIMES DAILY UNTIL ALL TAKEN 0 04-10 00:00: 00 Yes William Quinones &lt 0 04-10 00:00: 00 Yes 500 William Quinones metroNIDAZO LE 500 mg tablet 04-04 00:00: 00 04-03 00:00 :00 No [id number] 500mg Take 1 tablet by mouth every 12 (twelve) hours. [facility] TAKE 1 TABLET BY MOUTH EVERY DAY 04-02 00:00: 00 Yes William Quinones oxybutynin XL 5 mg 24 hr tablet 04-02 00:00: 00 02-11 00:00 :00 No [id number] 5mg Take 1 tablet by mouth daily. [facility] omeprazole 40 mg capsule,del ayed release 04-01 00:00: 00 No 1mg &lt 0 04-01 00:00: 00 No omeprazole 40 mg capsule,del ayed release 04-01 00:00: 00 Yes 1mg William Quinones &lt 0 04-01 00:00: 00 Yes William Quinones TAKE 1 TABLET BY MOUTH EVERY DAY 0 03-28 00:00: 00 No &lt 0 03-28 00:00: 00 No TAKE 1 TABLET BY MOUTH EVERY DAY 0 03-28 00:00: 00 Yes William Quinones &lt 0 7 00:00: 00 Yes William Quniones 8 TABLETS ORALLY ONCE A WEEK 60 DAYS 0 - 00:00: 00 No 8 TABLETS ORALLY ONCE A WEEK 60 DAYS 0 03-20 00:00: 00 Yes William Quinones IBUPROFEN 800 MG TABS 0 - 00:00: 00 Yes William Quinones &lt 0 - 00:00: [address] 1 PUFF EVERY 6-8 HOURS NEEDED FOR WHEEZING 0 -20 00:00: 00 No TAKE 1 TABLET BY MOUTH THREE TIMES DAILY 0 -20 00:00: 00 No &lt 2021-0 6-20 00:00: 00 No TAKE 1 CAPSULE BY MOUTH EVERY DAY 2021-0 6-20 00:00: 00 No &lt 2021-0 6-20 00:00: 00 No &lt 2021-0 6-20 00:00: [address] 1 PUFF EVERY 6-8 HOURS NEEDED FOR WHEEZING 2021-0 6-20 00:00: 00 Yes William Quinones TAKE 1 TABLET BY MOUTH THREE TIMES DAILY 2021-0 6-20 00:00: 00 Yes William Quinones &lt 0 6-20 00:00: 00 Yes William Quinones TAKE 1 CAPSULE BY MOUTH EVERY DAY 2021-0 6-20 00:00: 00 Yes William Quinones &lt 0 6-20 00:00: 00 Yes William Quinones TAKE 1 TABLET BY MOUTH THREE TIMES DAILY 0 25 00:00: 00 Yes William Quinones OXYBUTYNIN CHLORIDE ER 5 MG TB24 0 18 00:00: 00 Yes William Quinones oxybutynin XL 5 mg 24 hr tablet 0 18 00:00: 00 - 00:00 :00 No [id number] 5mg Take 1 tablet by mouth daily. [facility] Augmentin 500 mg-125 mg tablet 0 01-21 00:00: 00 No 1mg Augmentin 500 mg-125 mg tablet 0 01-21 00:00: 00 Yes 1mg William Quinones TAKE 1 TABLET BY MOUTH THREE TIMES DAILY UNTIL ALL TAKEN 0 01-21 00:00: 00 Yes William Quinones Dose Unknown 0 25 00:00: 00 No Dose Unknown 0 25 00:00: 00 No Dose Unknown 0 4-25 00:00: 00 Yes William Quinones Dose Unknown 0 -25 00:00: 00 Yes Willima Quinones Ergocalcife rol 0 3-07 00:00: 00 Yes Ludmila Wilde 1 capsule [facility] Hydrocodone -Acetaminop hen 0 3-05 03:45: 05 Yes Nilanjana Nieves not defined [facility] Omeprazole 2022-0 3-05 03:45: 05 Yes Nilanjana Nieves 1 capsule 30 minutes before morning meal [facility] Atorvastati n Calcium 305 03:45: 05 Yes Nilanjana Nieves not defined [facility] Folic Acid 305 03:45: 05 Yes Nilanjana Nieves 1 tablet [facility] Levothyroxi ne Sodium 305 03:45: 05 Yes Nilanjana Nieves not defined [facility] Vitamin D 3 03:45: 05 Yes Nilanjana Nieves not defined [facility] Ibuprofen 05 03:45: 05 Yes Nilanjana Nieves not defined [facility] Levatol 11-30 03:45: 05 Yes Nilanjana Neives not defined [facility] VESIcare 305 03:45: 05 Yes Nilanjana Nieves not defined [facility] Aleve 11-30 03:45: 05 Yes Nilanjana Nieves not defined [facility] HYDROCODONE BITARTRATE/ ACETAMINOPH E N 5-325 MG TABS 3 00:00: 00 Yes William Quinones ProAir HFA 90 mcg/actuati on aerosol inhaler 2020-09 00:00: 00 No 1mcg/ac tuation ProAir HFA 90 mcg/actuati on aerosol inhaler 2020-09 00:00: 00 Yes 1mcg/ac tuation William F Joni atorvastati n 10 mg tablet 2020-09 00:00: 00 No 1mg levothyroxi ne 50 mcg tablet 2020-09 00:00: 00 No 1mcg omeprazole 40 mg capsule,del ayed release 2020-09 00:00: 00 No 1mg atorvastati n 10 mg tablet 2020-09 00:00: 00 Yes 1mg William F Joni levothyroxi ne 50 mcg tablet 2020-09 00:00: 00 Yes 1mcg William Quinones omeprazole 40 mg capsule,del ayed release 2020-09 2-29 00:00: 00 Yes 1mg William Quinones omeprazole 40 mg capsule,del ayed release 2020-09 1- 00:00: 00 No 1mg omeprazole 40 mg capsule,del ayed release 2020-09- 00:00: 00 Yes 1mg William Quinones ProAir HFA 90 mcg/actuati on aerosol inhaler - 00:00: 00 No 1mcg/ac tuation atorvastati n 10 mg tablet - 00:00: 00 No 1mg levothyroxi ne 50 mcg tablet 05-30 00:00: 00 No 1mcg omeprazole 40 mg capsule,del ayed release 05-30 00:00: 00 No 1mg ProAir HFA 90 mcg/actuati on aerosol inhaler 05-30 00:00: 00 Yes 1mcg/ac tuation William Quinones atorvastati n 10 mg tablet 05-30 00:00: 00 Yes 1mg William Quinones levothyroxi ne 50 mcg tablet 05-30 00:00: 00 Yes 1mcg William Quinones omeprazole 40 mg capsule,del ayed release 9- 00:00: 00 Yes 1mg William Quinones omeprazole 40 mg capsule,del ayed release - 00:00: 00 No 1mg omeprazole 40 mg capsule,del ayed release 8- 00:00: 00 Yes 1mg William Quinones omeprazole 40 mg capsule,del ayed release 8- 00:00: 00 No 1mg omeprazole 40 mg capsule,del ayed release 8- 00:00: 00 Yes 1mg William Quinones metroNIDAZO LE 500 mg tablet 7-14 00:00: 00 Yes [id number] 500mg Take 1 tablet by mouth every 12 (twelve) hours. [facility] omeprazole 40 mg capsule,del ayed release 6- 00:00: 00 No 1mg omeprazole 40 mg capsule,del ayed release 6 00:00: 00 Yes 1mg William Quinones tizanidine 4 mg capsule 02-19 00:00: 00 No 1mg tizanidine 4 mg capsule 02-19 00:00: 00 Yes 1mg William Quinones atorvastati n 10 mg tablet 01-29 00:00: 00 No 1mg levothyroxi ne 50 mcg tablet 01-29 00:00: 00 No 1mcg omeprazole 40 mg capsule,del ayed release 01-29 00:00: 00 No 1mg atorvastati n 10 mg tablet 01-29 00:00: 00 Yes 1mg William Quinones levothyroxi ne 50 mcg tablet 01-29 00:00: 00 Yes 1mcg William Quinones omeprazole 40 mg capsule,del ayed release 01-29 00:00: 00 Yes 1mg William Quinones Vitamin D 08 02:45: 23 Yes Nilanjana Nieves not defined [facility] omeprazole 40 mg capsule,del ayed release 10-25 00:00: 00 No 1mg omeprazole 40 mg capsule,del ayed release 10-25 00:00: 00 Yes 1mg William Quinones Ergocalcife rol 2019-09 00:00: 00 Yes Nilanjana Nieves 1 capsule [facility] omeprazole 40 mg capsule,del ayed release 2019-09 2 00:00: 00 No 1mg omeprazole 40 mg capsule,del ayed release 2019-09 00:00: 00 Yes 1mg William Quinones ProAir HFA 90 mcg/actuati on aerosol inhaler 2019-09 00:00: 00 No 1mcg/ac tuation atorvastati n 10 mg tablet 2019-09 00:00: 00 No 1mg levothyroxi ne 50 mcg tablet 2019-09 00:00: 00 No 1mcg omeprazole 40 mg capsule,del ayed release 2019-09 0 00:00: 00 No 1mg ProAir HFA 90 mcg/actuati on aerosol inhaler 2019-09 00:00: 00 Yes 1mcg/ac tuation William Quinones atorvastati n 10 mg tablet 2019-09 00:00: 00 Yes 1mg William Quinones levothyroxi ne 50 mcg tablet 2019-09 00:00: 00 Yes 1mcg William Quinones omeprazole 40 mg capsule,del ayed release 2019-09 0 00:00: 00 Yes 1mg William Montanofed DM 2 mg-30 mg-10 mg/5 mL oral syrup 2019-09 00:00: 00 No 5mg/5 mL Dose Unknown 2019-09 00:00: 00 Yes William Quinones cephalexin 500 mg capsule 2019-09 00:00: 00 Yes 1mg William Garcia DM 2 mg-30 mg-10 mg/5 mL oral syrup 2019-09 00:00: 00 Yes 5mg/5 mL William Quinones omeprazole 40 mg capsule,del ayed release 2019-09 0 00:00: 00 No 1mg omeprazole 40 mg capsule,del ayed release 2019-09 0 00:00: 00 Yes 1mg William Quinones doxycycline hyclate 100 mg capsule 06-19 00:00: 00 No 1mg doxycycline hyclate 100 mg capsule 06-19 00:00: 00 Yes 1mg William Quinones Methotrexat e 0 910 02:45: 31 Yes Nilkeyshajana Nieves take 8 tablets once a week [facility] Omeprazole 0 9-10 02:45: 31 Yes Nilanjana Nieves not defined [facility] Methotrexat e 0 8-07 00:00: 00 Yes Nilanjana Nieves 8 tablets [facility] doxycycline hyclate 100 mg capsule 0 6-16 00:00: 00 No 1mg doxycycline hyclate 100 mg capsule 16 00:00: 00 Yes 1mg William Quinones Augmentin 875 mg-125 mg tablet 615 00:00: 00 No 1mg Align 4 mg capsule 615 00:00: 00 No 1mg Augmentin 875 mg-125 mg tablet 15 00:00: 00 Yes 1mg William Quinones Align 4 mg capsule 0 15 00:00: 00 Yes 1mg William Quinones atorvastati n 10 mg tablet 0 03-01 00:00: 00 No 1mg levothyroxi ne 50 mcg tablet 0 03-01 00:00: 00 No 1mcg atorvastati n 10 mg tablet 0 03-01 00:00: 00 Yes 1mg William Quinones levothyroxi ne 50 mcg tablet 0 03-01 00:00: 00 Yes 1mcg William Quinones Methotrexat e 0 02-28 00:00: 00 Yes Melba Vo take 8 tablets once a week [facility] PredniSONE 0 01-23 00:00: 00 Yes Nilanjana Nieves 1 tablet [facility] Folic Acid 0 01-23 00:00: 00 Yes Melba Vo 1 tablet [facility] atorvastati n 10 mg tablet 0 01-20 00:00: 00 Yes 1mg William Quinones levothyroxi ne 50 mcg tablet 0 25 00:00: 00 Yes 1mcg William Quinones omeprazole 40 mg capsule,del ayed release 0 25 00:00: 00 Yes 1mg William Quinones atorvastati n 10 mg tablet 0 01-18 00:00: 00 Yes 1mg William Quinones levothyroxi ne 50 mcg tablet 0 01-18 00:00: 00 Yes 1mcg William Quinones omeprazole 40 mg capsule,del ayed release 0 01-18 00:00: 00 Yes 1mg William Quinones Bromfed DM 2 mg-30 mg-10 mg/5 mL oral syrup 0 17 00:00: 00 No 5mg/5 mL Bromfed DM 2 mg-30 mg-10 mg/5 mL oral syrup 0 17 00:00: 00 Yes 5mg/5 mL William Quinones IBUPROFEN 800 mg tablet 0 27 00:00: 00 04-03 00:00 :00 No TAKE 1 TABLET BY MOUTH THREE TIMES A DAY WITH MEALS [facility] cephALEXin 250 mg capsule 12-04 00:00: 00 07-21 00:00 :00 No [id number] 500mg Take 2 capsules by mouth every 12 (twelve) hours. [facility] Omeprazole 12-01 03:46: 17 Yes Ludmila Thompson not defined [facility] Plaquenil 11-30 00:00: 00 Yes Ludmila Thompson 1 tablet with food or milk [facility] omeprazole 40 mg capsule,del ayed release 11-22 00:00: 00 Yes 1mg William Quinones ondansetron 4 mg disintegrat ing tablet 10-28 00:00: 00 No 1mg azithromyci n 250 mg tablet 10-28 00:00: 00 No mg Bromfed DM 2 mg-30 mg-10 mg/5 mL oral syrup 10-28 00:00: 00 No 5mg/5 mL ondansetron 4 mg disintegrat ing tablet 10-28 00:00: 00 Yes 1mg William Quinones azithromyci n 250 mg tablet 10-28 00:00: 00 Yes mg William Quinones Bromfed DM 2 mg-30 mg-10 mg/5 mL oral syrup 10-28 00:00: 00 Yes 5mg/5 mL William Quinones gentamicin 0.3 % eye drops 10-05 00:00: 00 No % gentamicin 0.3 % eye drops 10-05 00:00: 00 Yes % William Quinones solifenacin 5 mg tablet 10-03 00:00: 00 No 1mg methotrexat e sodium 2.5 mg tablet 10-03 00:00: 00 No 1mg folic acid 1 mg tablet 10-03 00:00: 00 No 1mg hydrocodone 7.5 mg-acetamin ophen 325 mg tablet 10-03 00:00: 00 No 1mg atorvastati n 10 mg tablet 10-03 00:00: 00 No 1mg levothyroxi ne 50 mcg tablet 10-03 00:00: 00 No 1mcg omeprazole 40 mg capsule,del ayed release 10-03 00:00: 00 No 1mg atorvastati n 10 mg tablet 10-03 00:00: 00 Yes 1mg William Quinones hydrocodone 7.5 mg-acetamin ophen 325 mg tablet 10-03 00:00: 00 Yes 1mg William Quinones folic acid 1 mg tablet 10-03 00:00: 00 Yes 1mg William Quinones solifenacin 5 mg tablet 10-03 00:00: 00 Yes 1mg William Quinones methotrexat e sodium 2.5 mg tablet 10-03 00:00: 00 Yes 1mg William Quinones levothyroxi ne 50 mcg tablet 10-03 00:00: 00 Yes 1mcg William Quinones omeprazole 40 mg capsule,del ayed release 10-03 00:00: 00 Yes 1mg William Quinones Folic Acid 2018-09 00:00: 00 Yes Nilanjana Nieves 1 tablet [facility] ATORVASTATI N 10 mg tablet 2018-09 00:00: 00 11-02 00:00 :00 No [id number] TAKE 1 TABLET BY MOUTH EVERYDAY AT BEDTIME [facility] Ibuprofen 200 mg capsule 2018-09 11:55: 08 11-02 00:00 :00 No Take by mouth. [facility] Plaquenil 2018-09 00:00: 00 Yes Nilanjana Nieves 1 tablet with food or milk [facility] PredniSONE 2018-09 00:00: 00 Yes Nilanjana Nieves 1 tablet [facility] foLIC acid 1 mg tablet 06-09 00:00: 00 09-20 00:00 :00 No [id number] 0 1mg Take 1 tablet by mouth daily. [facility] citalopram 10 mg tablet 05-19 00:00: 00 04-03 00:00 :00 No [id number] 10mg Take 1 tablet by mouth daily. [facility] clobetasol 0.05 % cream 05-19 00:00: 00 04-03 00:00 :00 No [id number] Apply to area(s) 2 (two) times daily. [facility] GABAPENTIN 300 mg capsule 04-21 00:00: 00 09-20 00:00 :00 No [id number] TAKE 1 CAPSULE BY MOUTH THREE TIMES A DAY [facility] OMEPRAZOLE 40 mg capsule 16 00:00: 00 08-18 00:00 :00 No [id number] TAKE 1 CAPSULE BY MOUTH ONCE DAILY [facility] peg-electro lyte soln 236-22.74-6 .74 -5.86 gram solution 04-11 00:00: 00 04-03 00:00 :00 No Take as directed [facility] Plaquenil 03-29 00:00: 00 Yes Melba Vo 1 tablet with food or milk [facility] methocarbam ol 500 mg tablet 03-16 00:00: 00 04-03 00:00 :00 No [id number] 500mg Take 1 tablet by mouth 4 (four) times daily. [facility] traMADOL 50 mg tablet 02-25 00:00: 00 04-03 00:00 :00 No [id number] 50mg Take 1 tablet by mouth every 6 (six) hours as needed for Pain (scale 4-6). [facility] HYDROcodone -acetaminop hen 10-325 mg tablet 02-15 00:00: 00 11-02 00:00 :00 No [id number] 1{tbl} Take 1 tablet by mouth every 4 (four) hours as needed for Pain (scale 4-6). [facility] ergocalcife rol, vitamin d2, 50,000 unit capsule 01-31 00:00: 00 04-03 00:00 :00 No [id number] Take 1 capsule by mouth weekly. After 12 weeks switch to an OTC vitamin D3 pill 2000 units daily with a meal [facility] levothyroxi ne 50 mcg tablet 12-20 00:00: 00 Yes [id number] 50ug Take 1 tablet by mouth every morning. [facility] Diclofenac Sodium 1 % gel 11-02 00:00: 00 09-20 00:00 :00 No [id number] Apply 1gram to affected area twice daily [facility] methotrexat e 2.5 mg tablet 10-05 00:00: 00 11-02 00:00 :00 No TAKE 8 TABLETS BY MOUTH ONCE WEEKLY [facility] Augmentin 500 mg-125 mg tablet 04-24 00:00: 00 No 1mg Augmentin 500 mg-125 mg tablet 04-24 00:00: 00 Yes 1mg [facility] Bactrim DS 800 mg-160 mg tablet 01-18 00:00: 00 No 1mg Bactrim DS 800 mg-160 mg tablet 01-18 00:00: 00 Yes 1mg [facility] mupirocin 2 % topical ointment 01-15 00:00: 00 No 1% amlodipine 5 mg tablet 01-15 00:00: 00 No 1mg levothyroxi ne 50 mcg tablet 01-15 00:00: 00 No 1mcg mupirocin 2 % topical ointment 01-15 00:00: 00 Yes 1% [facility] amlodipine 5 mg tablet 01-15 00:00: 00 Yes 1mg [facility] levothyroxi ne 50 mcg tablet 01-15 00:00: 00 Yes 1mcg [facility] Bactrim DS 800 mg-160 mg tablet 10-12 00:00: 00 No 1mg Bactrim DS 800 mg-160 mg tablet 10-12 00:00: 00 Yes 1mg [facility] levothyroxi ne 50 mcg tablet 2014-09 00:00: 00 No 1mcg levothyroxi ne 50 mcg tablet 2014-09 00:00: 00 Yes 1mcg William Quinones amlodipine 5 mg tablet 2014-09 00:00: 00 No 1mg prednisone 10 mg tablet 2014-09 00:00: 00 No 1mg amlodipine 5 mg tablet 2014-09 00:00: 00 Yes 1mg William Quinones prednisone 10 mg tablet 2014-09 0 00:00: 00 Yes 1mg William Quinones amlodipine 5 mg tablet 04-10 00:00: 00 No 1mg amlodipine 5 mg tablet 04-10 00:00: 00 Yes 1mg William Quinones prednisone 10 mg tablet 04-03 00:00: 00 No 1mg prednisone 10 mg tablet 04-03 00:00: 00 Yes 1mg William Quinones levothyroxi ne 50 mcg tablet 01-19 00:00: 00 No 1mcg levothyroxi ne 50 mcg tablet 01-19 00:00: 00 Yes 1mcg William Quinones tramadol 50 mg tablet 12-05 00:00: 00 No 1mg levothyroxi ne 50 mcg tablet 12-05 00:00: 00 No 1mcg tramadol 50 mg tablet 12-05 00:00: 00 Yes 1mg William Quinones levothyroxi ne 50 mcg tablet 12-05 00:00: 00 Yes 1mcg William Quinones prednisone 10 mg tablet 11-03 00:00: 00 No 1mg prednisone 10 mg tablet 11-03 00:00: 00 Yes 1mg William Quinones Immunizations Ordered Immunization Name Filled Immunization Name Date Status Comments Source influenza, seasonal vaccine, quadrivalent, adjuvanted, .5mL dose, preservative-free influenza, seasonal vaccine, quadrivalent, adjuvanted, .5mL dose, preservative-free 2024-09-15 00:00:00 Completed William Annie Joni Influenza Virus Vaccine 2024-09-15 00:00:00 Completed Comirnaty 12+ ( Formula) Comirnaty 12+ ( Formula) 2023-07-06 00:00:00 Completed William Annie Joni influenza, seasonal vaccine, quadrivalent, adjuvanted, .5mL dose, preservative-free influenza, seasonal vaccine, quadrivalent, adjuvanted, .5mL dose, preservative-free 2023-07-01 00:00:00 Completed William Annie Joni Influenza Virus Vaccine,quad Im,preserve Free 65+ (FLUAD) 2023-06-28 00:00:00 Completed [facility] influenza, high-dose, quadrivalent influenza, high-dose, quadrivalent 2022-06-18 00:00:00 Completed William Annie Joni Influenza High Dose Quad 2022-06-18 00:00:00 Completed Moderna COVID-19 Vaccine Moderna COVID-19 Vaccine 2022-06-02 00:00:00 Completed William Quinones (Old, dont use) Moderna Covid-19 Vaccine (Aged 12 years and older) (Online Facilitator) (Old, dont use) Moderna Covid-19 Vaccine (Aged 12 years and older) (Online Facilitator) 2022-06-02 00:00:00 Completed William Quinones SARS-COV-2 COVID-19 VACCINE - (MODERNA) 2022-06-02 00:00:00 Completed Moderna Covid-19 Vaccine (Aged 12 years and older) (Online Facilitator) 2022-06-02 00:00:00 Completed Prevnar 20 Prevnar 20 2022-03-20 00:00:00 Completed William Annie Joni Pneumococcal 20 Conjugate, PCV20 (Prevnar 20) 2022-03-20 00:00:00 Completed Moderna COVID-19 Vaccine Moderna COVID-19 Vaccine 2021-08-07 00:00:00 Completed William Quinones SARS-COV-2 COVID-19 VACCINE - (MODERNA) 2021-08-07 00:00:00 Completed Moderna COVID-19 Vaccine 2021-08-07 00:00:00 Completed influenza, high-dose, quadrivalent influenza, high-dose, quadrivalent 2021-07-03 00:00:00 Completed William Quinones Influenza High Dose Quad 2021-07-03 00:00:00 Completed Tdap Tdap 2021-03-18 00:00:00 Completed William Quinones TDAP 2021-03-18 00:00:00 Completed Tdap 2021-03-18 00:00:00 Completed Moderna COVID-19 Vaccine Moderna COVID-19 Vaccine 2020-11-14 00:00:00 Completed William Quinones SARS-COV-2 COVID-19 VACCINE - (MODERNA) 2020-11-14 00:00:00 Completed Moderna COVID-19 Vaccine Moderna COVID-19 Vaccine 2020-10-17 00:00:00 Completed William Quinones SARS-COV-2 COVID-19 VACCINE - (MODERNA) 2020-10-17 00:00:00 Completed Influenza High Dose 2019-06-14 00:00:00 Completed [facility] Influenza High Dose 2019-06-14 00:00:00 Completed [facility] Influenza High Dose 2019-06-14 00:00:00 Completed [facility] Influenza High Dose 2019-06-14 00:00:00 Completed [facility] Influenza High Dose 2019-06-14 00:00:00 Completed [facility] Influenza High Dose 2019-06-14 00:00:00 Completed [facility] Influenza High Dose 2019-06-14 00:00:00 Completed [facility] Influenza High Dose 2019-06-14 00:00:00 Completed [facility] Influenza High Dose 2019-06-14 00:00:00 Completed [facility] Influenza High Dose 2019-06-14 00:00:00 Completed [facility] Influenza High Dose 2019-06-14 00:00:00 Completed [facility] Influenza High Dose 2019-06-14 00:00:00 Completed [facility] Influenza High Dose 2019-06-14 00:00:00 Completed [facility] Influenza High Dose 2019-06-14 00:00:00 Completed [facility] Influenza High Dose 2019-06-14 00:00:00 Completed [facility] Influenza High Dose 2019-06-14 00:00:00 Completed [facility] Influenza High Dose 2019-06-14 00:00:00 Completed [facility] Influenza High Dose 2019-06-14 00:00:00 Completed [facility] Influenza High Dose 2019-06-14 00:00:00 Completed [facility] Influenza High Dose 2019-06-14 00:00:00 Completed [facility] Influenza High Dose 2019-06-14 00:00:00 Completed [facility] Influenza, High-Dose, Trivalent, PF (FLUZONE) 2019-06-14 00:00:00 Completed Influenza High Dose 2019-06-14 00:00:00 Completed [facility] Influenza High Dose 2019-06-14 00:00:00 Completed [facility] Influenza High Dose 2019-06-14 00:00:00 Completed [facility] Influenza High Dose 2019-06-14 00:00:00 Completed [facility] Influenza High Dose 2019-06-14 00:00:00 Completed [facility] Influenza High Dose 2019-06-14 00:00:00 Completed [facility] Influenza High Dose 2019-06-14 00:00:00 Completed [facility] Influenza High Dose 2019-06-14 00:00:00 Completed [facility] Influenza High Dose 2019-06-14 00:00:00 Completed [facility] Influenza High Dose 2019-06-14 00:00:00 Completed [facility] Influenza High Dose 2019-06-14 00:00:00 Completed [facility] Influenza High Dose 2019-06-14 00:00:00 Completed [facility] Pneumococcal 13 Conjugate, PCV13 (Prevnar 13) 2019-01-27 00:00:00 Completed [facility] Pneumococcal 13 Conjugate, PCV13 (Prevnar 13) 2019-01-27 00:00:00 Completed [facility] Pneumococcal 13 Conjugate, PCV13 (Prevnar 13) 2019-01-27 00:00:00 Completed [facility] Pneumococcal 13 Conjugate, PCV13 (Prevnar 13) 2019-01-27 00:00:00 Completed [facility] Pneumococcal 13 Conjugate, PCV13 (Prevnar 13) 2019-01-27 00:00:00 Completed [facility] Pneumococcal 13 Conjugate, PCV13 (Prevnar 13) 2019-01-27 00:00:00 Completed [facility] Pneumococcal 13 Conjugate, PCV13 (Prevnar 13) 2019-01-27 00:00:00 Completed [facility] Pneumococcal 13 Conjugate, PCV13 (Prevnar 13) 2019-01-27 00:00:00 Completed [facility] Pneumococcal 13 Conjugate, PCV13 (Prevnar 13) 2019-01-27 00:00:00 Completed [facility] Pneumococcal 13 Conjugate, PCV13 (Prevnar 13) 2019-01-27 00:00:00 Completed [facility] Pneumococcal 13 Conjugate, PCV13 (Prevnar 13) 2019-01-27 00:00:00 Completed [facility] Pneumococcal 13 Conjugate, PCV13 (Prevnar 13) 2019-01-27 00:00:00 Completed [facility] Pneumococcal 13 Conjugate, PCV13 (Prevnar 13) 2019-01-27 00:00:00 Completed [facility] Pneumococcal 13 Conjugate, PCV13 (Prevnar 13) 2019-01-27 00:00:00 Completed [facility] Pneumococcal 13 Conjugate, PCV13 (Prevnar 13) 2019-01-27 00:00:00 Completed [facility] Pneumococcal 13 Conjugate, PCV13 (Prevnar 13) 2019-01-27 00:00:00 Completed [facility] Pneumococcal 13 Conjugate, PCV13 (Prevnar 13) 2019-01-27 00:00:00 Completed [facility] Pneumococcal 13 Conjugate, PCV13 (Prevnar 13) 2019-01-27 00:00:00 Completed [facility] Pneumococcal 13 Conjugate, PCV13 (Prevnar 13) 2019-01-27 00:00:00 Completed [facility] Pneumococcal 13 Conjugate, PCV13 (Prevnar 13) 2019-01-27 00:00:00 Completed [facility] Pneumococcal 13 Conjugate, PCV13 (Prevnar 13) 2019-01-27 00:00:00 Completed [facility] Pneumococcal 13 Conjugate, PCV13 (Prevnar 13) 2019-01-27 00:00:00 Completed [facility] Pneumococcal 13 Conjugate, PCV13 (Prevnar 13) 2019-01-27 00:00:00 Completed [facility] Pneumococcal 13 Conjugate, PCV13 (Prevnar 13) 2019-01-27 00:00:00 Completed [facility] Pneumococcal 13 Conjugate, PCV13 (Prevnar 13) 2019-01-27 00:00:00 Completed [facility] Pneumococcal 13 Conjugate, PCV13 (Prevnar 13) 2019-01-27 00:00:00 Completed [facility] Pneumococcal 13 Conjugate, PCV13 (Prevnar 13) 2019-01-27 00:00:00 Completed [facility] Pneumococcal 13 Conjugate, PCV13 (Prevnar 13) 2019-01-27 00:00:00 Completed [facility] Pneumococcal 13 Conjugate, PCV13 (Prevnar 13) 2019-01-27 00:00:00 Completed [facility] Pneumococcal 13 Conjugate, PCV13 (Prevnar 13) 2019-01-27 00:00:00 Completed [facility] Pneumococcal 13 Conjugate, PCV13 (Prevnar 13) 2019-01-27 00:00:00 Completed [facility] Pneumococcal 13 Conjugate, PCV13 (Prevnar 13) 2019-01-27 00:00:00 Completed [facility] Pneumococcal 13 Conjugate, PCV13 (Prevnar 13) 2019-01-27 00:00:00 Completed [facility] Pneumococcal 13 Conjugate, PCV13 (Prevnar 13) 2019-01-27 00:00:00 Completed [facility] Influenza High Dose 2018-07-07 00:00:00 Completed [facility] Influenza High Dose 2018-07-07 00:00:00 Completed [facility] Influenza High Dose 2018-07-07 00:00:00 Completed [facility] Influenza High Dose 2018-07-07 00:00:00 Completed [facility] Influenza High Dose 2018-07-07 00:00:00 Completed [facility] Influenza High Dose 2018-07-07 00:00:00 Completed [facility] Influenza High Dose 2018-07-07 00:00:00 Completed [facility] Influenza High Dose 2018-07-07 00:00:00 Completed [facility] Influenza High Dose 2018-07-07 00:00:00 Completed [facility] Influenza High Dose 2018-07-07 00:00:00 Completed [facility] Influenza High Dose 2018-07-07 00:00:00 Completed [facility] Influenza High Dose 2018-07-07 00:00:00 Completed [facility] Influenza High Dose 2018-07-07 00:00:00 Completed [facility] Influenza High Dose 2018-07-07 00:00:00 Completed [facility] Influenza High Dose 2018-07-07 00:00:00 Completed [facility] Influenza High Dose 2018-07-07 00:00:00 Completed [facility] Influenza High Dose 2018-07-07 00:00:00 Completed [facility] Influenza High Dose 2018-07-07 00:00:00 Completed [facility] Influenza High Dose 2018-07-07 00:00:00 Completed [facility] Influenza High Dose 2018-07-07 00:00:00 Completed [facility] Influenza High Dose 2018-07-07 00:00:00 Completed [facility] Influenza, High-Dose, Trivalent, PF (FLUZONE) 2018-07-07 00:00:00 Completed [facility] Influenza High Dose 2018-07-07 00:00:00 Completed [facility] Influenza High Dose 2018-07-07 00:00:00 Completed [facility] Influenza High Dose 2018-07-07 00:00:00 Completed [facility] Influenza High Dose 2018-07-07 00:00:00 Completed [facility] Influenza High Dose 2018-07-07 00:00:00 Completed [facility] Influenza High Dose 2018-07-07 00:00:00 Completed [facility] Influenza High Dose 2018-07-07 00:00:00 Completed [facility] Influenza High Dose 2018-07-07 00:00:00 Completed [facility] Influenza High Dose 2018-07-07 00:00:00 Completed [facility] Influenza High Dose 2018-07-07 00:00:00 Completed [facility] Influenza High Dose 2018-07-07 00:00:00 Completed [facility] Influenza High Dose 2018-07-07 00:00:00 Completed [facility] Influenza Virus Vaccine 2017-08-03 00:00:00 Completed [facility] Influenza Virus Vaccine 2017-08-03 00:00:00 Completed [facility] Influenza Virus Vaccine 2017-08-03 00:00:00 Completed [facility] Influenza Virus Vaccine 2017-08-03 00:00:00 Completed [facility] Influenza Virus Vaccine 2017-08-03 00:00:00 Completed [facility] Influenza Virus Vaccine 2017-08-03 00:00:00 Completed [facility] Influenza Virus Vaccine 2017-08-03 00:00:00 Completed [facility] Influenza Virus Vaccine 2017-08-03 00:00:00 Completed [facility] Influenza Virus Vaccine 2017-08-03 00:00:00 Completed [facility] Influenza Virus Vaccine 2017-08-03 00:00:00 Completed [facility] Influenza Virus Vaccine 2017-08-03 00:00:00 Completed [facility] Influenza Virus Vaccine 2017-08-03 00:00:00 Completed [facility] Influenza Virus Vaccine 2017-08-03 00:00:00 Completed [facility] Influenza Virus Vaccine 2017-08-03 00:00:00 Completed [facility] Influenza Virus Vaccine 2017-08-03 00:00:00 Completed [facility] Influenza Virus Vaccine 2017-08-03 00:00:00 Completed [facility] Influenza Virus Vaccine 2017-08-03 00:00:00 Completed [facility] Influenza Virus Vaccine 2017-08-03 00:00:00 Completed [facility] Influenza Virus Vaccine 2017-08-03 00:00:00 Completed [facility] Influenza Virus Vaccine 2017-08-03 00:00:00 Completed [facility] Influenza Virus Vaccine 2017-08-03 00:00:00 Completed [facility] Influenza Virus Vaccine 2017-08-03 00:00:00 Completed Influenza Virus Vaccine 2017-08-03 00:00:00 Completed [facility] Influenza Virus Vaccine 2017-08-03 00:00:00 Completed [facility] Influenza Virus Vaccine 2017-08-03 00:00:00 Completed [facility] Influenza Virus Vaccine 2017-08-03 00:00:00 Completed [facility] Influenza Virus Vaccine 2017-08-03 00:00:00 Completed [facility] Influenza Virus Vaccine 2017-08-03 00:00:00 Completed [facility] Influenza Virus Vaccine 2017-08-03 00:00:00 Completed [facility] Influenza Virus Vaccine 2017-08-03 00:00:00 Completed [facility] Influenza Virus Vaccine 2017-08-03 00:00:00 Completed [facility] Influenza Virus Vaccine 2017-08-03 00:00:00 Completed [facility] Influenza Virus Vaccine 2017-08-03 00:00:00 Completed [facility] Influenza Virus Vaccine 2017-08-03 00:00:00 Completed [facility] influenza, injectable influenza, injectable 2015-10-12 00:00:00 Completed William Quinones Influenza Virus Vaccine Quad .5 mL IM 6+ MO (FLUZONE/FLULAVAL/F LUARIX) 2015-10-12 00:00:00 Completed influenza, injectable 2015-10-12 00:00:00 Completed Influenza Virus Vaccine Unknown Completed [facility] Influenza High Dose Unknown Completed [facility] Pneumococcal 13 Conjugate, PCV13 (Prevnar 13) Unknown Completed [facility] Influenza Virus Vaccine Unknown Completed [facility] Influenza High Dose Unknown Completed [facility] Pneumococcal 13 Conjugate, PCV13 (Prevnar 13) Unknown Completed [facility] Influenza Virus Vaccine Unknown Completed [facility] Influenza High Dose Unknown Completed [facility] Pneumococcal 13 Conjugate, PCV13 (Prevnar 13) Unknown Completed [facility] Influenza Virus Vaccine Unknown Completed [facility] Influenza High Dose Unknown Completed [facility] Pneumococcal 13 Conjugate, PCV13 (Prevnar 13) Unknown Completed [facility] Influenza Virus Vaccine Unknown Completed [facility] Influenza High Dose Unknown Completed [facility] Pneumococcal 13 Conjugate, PCV13 (Prevnar 13) Unknown Completed [facility] Influenza Virus Vaccine Unknown Completed [facility] Influenza High Dose Unknown Completed [facility] Pneumococcal 13 Conjugate, PCV13 (Prevnar 13) Unknown Completed [facility] Influenza Virus Vaccine Unknown Completed [facility] Pneumococcal 13 Conjugate, PCV13 (Prevnar 13) Unknown Completed [facility] Influenza High Dose Unknown Completed [facility] Influenza Virus Vaccine Unknown Completed [facility] Pneumococcal 13 Conjugate, PCV13 (Prevnar 13) Unknown Completed [facility] Influenza Virus Vaccine,quad Im,preserve Free 65+ (FLUAD) Unknown Completed [facility] Influenza High Dose Unknown Completed [facility] Influenza Virus Vaccine Unknown Completed [facility] Influenza High Dose Unknown Completed [facility] Pneumococcal 13 Conjugate, PCV13 (Prevnar 13) Unknown Completed [facility] Influenza Virus Vaccine,quad Im,preserve Free 65+ (FLUAD) Unknown Completed [facility] Influenza Virus Vaccine Unknown Completed [facility] Influenza High Dose Unknown Completed [facility] Pneumococcal 13 Conjugate, PCV13 (Prevnar 13) Unknown Completed [facility] Influenza Virus Vaccine,quad Im,preserve Free 65+ (FLUAD) Unknown Completed [facility] Influenza Virus Vaccine Unknown Completed [facility] Influenza High Dose Unknown Completed [facility] Pneumococcal 13 Conjugate, PCV13 (Prevnar 13) Unknown Completed [facility] Influenza Virus Vaccine,quad Im,preserve Free 65+ (FLUAD) Unknown Completed [facility] Influenza Virus Vaccine Unknown Completed [facility] Influenza High Dose Unknown Completed [facility] Pneumococcal 13 Conjugate, PCV13 (Prevnar 13) Unknown Completed [facility] Influenza Virus Vaccine,quad Im,preserve Free 65+ (FLUAD) Unknown Completed [facility] Influenza Virus Vaccine Unknown Completed [facility] Influenza High Dose Unknown Completed [facility] Pneumococcal 13 Conjugate, PCV13 (Prevnar 13) Unknown Completed [facility] Influenza Virus Vaccine,quad Im,preserve Free 65+ (FLUAD) Unknown Completed [facility] Influenza Virus Vaccine Unknown Completed [facility] Influenza High Dose Unknown Completed [facility] Pneumococcal 13 Conjugate, PCV13 (Prevnar 13) Unknown Completed [facility] Influenza Virus Vaccine,quad Im,preserve Free 65+ (FLUAD) Unknown Completed [facility] Influenza Virus Vaccine Unknown Completed [facility] Influenza High Dose Unknown Completed [facility] Pneumococcal 13 Conjugate, PCV13 (Prevnar 13) Unknown Completed [facility] Influenza Virus Vaccine,quad Im,preserve Free 65+ (FLUAD) Unknown Completed [facility] Influenza Virus Vaccine Unknown Completed [facility] Influenza High Dose Unknown Completed [facility] Pneumococcal 13 Conjugate, PCV13 (Prevnar 13) Unknown Completed [facility] Influenza Virus Vaccine,quad Im,preserve Free 65+ (FLUAD) Unknown Completed [facility] Influenza Virus Vaccine Unknown Completed [facility] Influenza High Dose Unknown Completed [facility] Pneumococcal 13 Conjugate, PCV13 (Prevnar 13) Unknown Completed [facility] Influenza Virus Vaccine,quad Im,preserve Free 65+ (FLUAD) Unknown Completed [facility] Influenza Virus Vaccine Unknown Completed [facility] Influenza High Dose Unknown Completed [facility] Pneumococcal 13 Conjugate, PCV13 (Prevnar 13) Unknown Completed [facility] Influenza Virus Vaccine,quad Im,preserve Free 65+ (FLUAD) Unknown Completed [facility] Influenza Virus Vaccine Unknown Completed [facility] Influenza High Dose Unknown Completed [facility] Pneumococcal 13 Conjugate, PCV13 (Prevnar 13) Unknown Completed [facility] Influenza Virus Vaccine,quad Im,preserve Free 65+ (FLUAD) Unknown Completed [facility] Influenza Virus Vaccine Unknown Completed [facility] Influenza High Dose Unknown Completed [facility] Pneumococcal 13 Conjugate, PCV13 (Prevnar 13) Unknown Completed [facility] Influenza Virus Vaccine,quad Im,preserve Free 65+ (FLUAD) Unknown Completed [facility] Influenza Virus Vaccine Unknown Completed [facility] Influenza High Dose Unknown Completed [facility] Pneumococcal 13 Conjugate, PCV13 (Prevnar 13) Unknown Completed [facility] Influenza Virus Vaccine,quad Im,preserve Free 65+ (FLUAD) Unknown Completed [facility] Vital Signs Vital Name Observation Time Observation Value Comments S ource Systolic blood pressure 2025-01-11 20:23:00 91 mm[Hg] [facility] Diastolic blood pressure 2025-01-11 20:23:00 52 mm[Hg] [facility] Heart rate 2025-01-11 20:23:00 81 /min [facility] Body temperature 2025-01-11 20:23:00 36.33 Tammi [facility] Respiratory rate 2025-01-11 20:23:00 20 /min [facility] Oxygen saturation in Arterial blood by Pulse oximetry 2025-01-11 20:23:00 96 /min [facility] Body weight 2025-01-07 08:34:00 69.854 kg [facility] BMI 2025-01-07 08:34:00 28.17 kg/m2 [facility] Body height 2024-12-23 16:57:00 157.5 cm [facility] Systolic blood pressure 2025-01-06 14:00:00 92 mm[Hg] [facility] Diastolic blood pressure 2025-01-06 14:00:00 66 mm[Hg] [facility] Heart rate 2025-01-06 14:00:00 93 /min [facility] Respiratory rate 2025-01-06 14:00:00 16 /min [facility] Oxygen saturation in Arterial blood by Pulse oximetry 2025-01-06 14:00:00 99 /min [facility] Body temperature 2025-01-06 13:45:00 36.28 Tammi [facility] Body weight 2025-01-03 04:38:00 63.005 kg bed weight [facility] BMI 2025-01-03 04:38:00 28.17 kg/m2 [facility] Body height 2024-12-23 16:57:00 157.5 cm [facility] Systolic blood pressure 2024-12-23 16:57:00 150 mm[Hg] [facility] Diastolic blood pressure 2024-12-23 16:57:00 101 mm[Hg] [facility] Heart rate 2024-12-23 16:57:00 46 /min [facility] Body temperature 2024-12-23 16:57:00 37.11 Tammi [facility] Respiratory rate 2024-12-23 16:57:00 20 /min [facility] Body height 2024-12-23 16:57:00 157.5 cm [facility] Body weight 2024-12-23 16:57:00 65.772 kg [facility] BMI 2024-12-23 16:57:00 25.61 kg/m2 [facility] Oxygen saturation in Arterial blood by Pulse oximetry 2024-12-23 16:57:00 100 /min [facility] Systolic blood pressure 2024-12-19 18:24:00 105 mm[Hg] [facility] Diastolic blood pressure 2024-12-19 18:24:00 59 mm[Hg] [facility] Heart rate 2024-12-19 18:24:00 72 /min [facility] Body temperature 2024-12-19 18:24:00 36.83 Tammi [facility] Respiratory rate 2024-12-19 18:24:00 20 /min [facility] Body weight 2024-12-19 18:24:00 63.504 kg [facility] BMI 2024-12-19 18:24:00 25.61 kg/m2 [facility] Oxygen saturation in Arterial blood by Pulse oximetry 2024-12-19 18:24:00 98 /min [facility] Systolic blood pressure 2024-11-29 17:17:00 135 mm[Hg] [facility] Diastolic blood pressure 2024-11-29 17:17:00 63 mm[Hg] [facility] Body temperature 2024-11-29 17:17:00 35.89 Tammi [facility] Heart rate 2024-11-29 10:10:00 87 /min [facility] Body weight 2024-11-29 10:10:00 67.994 kg [facility] BMI 2024-11-29 10:10:00 24.94 kg/m2 [facility] Oxygen saturation in Arterial blood by Pulse oximetry 2024-11-29 10:10:00 93 /min [facility] Respiratory rate 2024-11-28 21:44:00 15 /min [facility] Body height 2024-11-21 23:10:00 165.1 cm [facility] Systolic blood pressure 2024-11-23 15:31:00 164 mm[Hg] [facility] Diastolic blood pressure 2024-11-23 15:31:00 88 mm[Hg] [facility] Heart rate 2024-11-23 15:31:00 81 /min [facility] Respiratory rate 2024-11-23 15:31:00 19 /min [facility] Oxygen saturation in Arterial blood by Pulse oximetry 2024-11-23 15:31:00 94 /min [facility] Body temperature 2024-11-23 14:57:00 36.28 Tammi [facility] Body weight 2024-11-22 10:00:00 64.774 kg [facility] BMI 2024-11-22 10:00:00 23.35 kg/m2 [facility] Body height 2024-11-21 23:10:00 165.1 cm [facility] Respiratory rate 2024-11-23 14:50:00 16 /min [facility] Systolic blood pressure 2024-11-21 19:55:00 88 mm[Hg] [facility] Diastolic blood pressure 2024-11-21 19:55:00 56 mm[Hg] [facility] Heart rate 2024-11-21 19:49:00 73 /min [facility] Body temperature 2024-11-21 19:49:00 36.61 Tammi [facility] Respiratory rate 2024-11-21 19:49:00 18 /min [facility] Body height 2024-11-21 19:49:00 [facility].1 [facility] 2024-11-21 19:49:00 63.821 kg [facility] BMI 2024-11-21 19:49:00 23.41 kg/m2 [facility] Systolic blood pressure 2024-11-07 21:00:00 119 mm[Hg] [place] [facility] Diastolic blood pressure 2024-11-07 21:00:00 70 mm[Hg] [facility] Heart rate 2024-11-07 21:00:00 79 /min [facility] Body temperature 2024-11-07 21:00:00 36.94 Tammi [facility] Respiratory rate 2024-11-07 21:00:00 16 /min [facility] Body height 2024-11-07 21:00:00 165.1 cm [facility] Body weight 2024-11-07 21:00:00 65.063 kg [facility] BMI 2024-11-07 21:00:00 23.87 kg/m2 [facility] Oxygen saturation in Arterial blood by Pulse oximetry 2024-11-07 21:00:00 97 /min [facility] Systolic blood pressure 2024-11-03 21:14:00 123 mm[Hg] [facility] Diastolic blood pressure 2024-11-03 21:14:00 70 mm[Hg] [facility] Heart rate 2024-11-03 21:14:00 67 /min [facility] Body temperature 2024-11-03 21:14:00 36.39 Tammi [facility] Respiratory rate 2024-11-03 21:14:00 20 /min [facility] Oxygen saturation in Arterial blood by Pulse oximetry 2024-11-03 21:14:00 96 /min [facility] Body weight 2024-11-03 10:51:00 73.483 kg [facility] BMI 2024-11-03 10:51:00 28.70 kg/m2 [facility] Body height 2024-10-13 21:53:00 160 cm [facility] Systolic blood pressure 2024-10-22 14:47:00 138 mm[Hg] [facility] Diastolic blood pressure 2024-10-22 14:47:00 74 mm[Hg] [facility] Heart rate 2024-10-22 13:32:00 71 /min [facility] Body temperature 2024-10-22 13:32:00 37.22 Tammi [facility] Respiratory rate 2024-10-22 13:32:00 16 /min [facility] Oxygen saturation in Arterial blood by Pulse oximetry 2024-10-22 13:32:00 98 /min [facility] Body weight 2024-10-21 06:37:00 68.947 kg [facility] BMI 2024-10-21 06:37:00 26.93 kg/m2 [facility] Body height 2024-10-13 21:53:00 160 cm [facility] Systolic blood pressure 2024-10-16 17:00:00 121 mm[Hg] [facility] Diastolic blood pressure 2024-10-16 17:00:00 58 mm[Hg] [facility] Heart rate 2024-10-16 17:00:00 69 /min [facility] Respiratory rate 2024-10-16 17:00:00 17 /min [facility] Oxygen saturation in Arterial blood by Pulse oximetry 2024-10-16 17:00:00 98 /min [facility] Body temperature 2024-10-16 16:50:00 37.72 Tammi [facility] Body weight 2024-10-16 09:09:00 68.947 kg [facility] BMI 2024-10-16 09:09:00 27.33 kg/m2 [facility] Body height 2024-10-13 21:53:00 160 cm [facility] Systolic blood pressure 2024-10-14 15:24:00 187 mm[Hg] [facility] Diastolic blood pressure 2024-10-14 15:24:00 66 mm[Hg] [facility] Heart rate 2024-10-14 15:24:00 55 /min [facility] Body temperature 2024-10-14 15:24:00 36.78 Tammi [facility] Respiratory rate 2024-10-14 15:24:00 19 /min [facility] Oxygen saturation in Arterial blood by Pulse oximetry 2024-10-14 15:24:00 96 /min [facility] Body weight 2024-10-14 09:24:00 69.99 kg [facility] BMI 2024-10-14 09:24:00 27.33 kg/m2 [facility] Body height 2024-10-13 21:53:00 160 cm [facility] Systolic blood pressure 2024-09-25 03:56:00 164 mm[Hg] [facility] Diastolic blood pressure 2024-09-25 03:56:00 73 mm[Hg] [facility] Heart rate 2024-09-25 03:56:00 69 /min [facility] Body temperature 2024-09-25 03:56:00 37 Tammi [facility] Respiratory rate 2024-09-25 03:56:00 16 /min [facility] Oxygen saturation in Arterial blood by Pulse oximetry 2024-09-25 03:56:00 96 /min [facility] Body height 2024-09-25 01:23:00 162.6 cm [facility] Body weight 2024-09-25 01:23:00 68.947 kg [facility] BMI 2024-09-25 01:23:00 26.09 kg/m2 [facility] Systolic blood pressure 2024-09-20 17:23:00 167 mm[Hg] [facility] Diastolic blood pressure 2024-09-20 17:23:00 82 mm[Hg] [facility] Heart rate 2024-09-20 17:23:00 63 /min [facility] Body temperature 2024-09-20 17:16:00 36.44 Tammi [facility] Respiratory rate 2024-09-20 17:16:00 18 /min [facility] Oxygen saturation in Arterial blood by Pulse oximetry 2024-09-20 17:16:00 97 /min [facility] Body height 2024-09-20 13:15:00 162.6 cm [facility] Body weight 2024-09-20 13:15:00 71.487 kg [facility] BMI 2024-09-20 13:15:00 27.05 kg/m2 [facility] Systolic blood pressure 2024-09-06 18:20:00 152 mm[Hg] [facility] Diastolic blood pressure 2024-09-06 18:20:00 90 mm[Hg] [facility] Heart rate 2024-09-06 18:20:00 62 /min [facility] Body temperature 2024-09-06 18:20:00 37.33 Tammi [facility] Respiratory rate 2024-09-06 18:20:00 18 /min [facility] Oxygen saturation in Arterial blood by Pulse oximetry 2024-09-06 18:20:00 93 /min [facility] Body height 2024-09-06 15:17:00 160 cm [facility] Body weight 2024-09-06 15:17:00 67.132 kg [facility] BMI 2024-09-06 15:17:00 26.22 kg/m2 [facility] Systolic blood pressure 2024-07-25 21:20:00 157 mm[Hg] [facility] Diastolic blood pressure 2024-07-25 21:20:00 82 mm[Hg] [facility] Heart rate 2024-07-25 21:20:00 70 /min [facility] Body height 2024-07-25 21:19:00 160 cm [facility] Body weight 2024-07-25 21:19:00 70.308 kg [facility] BMI 2024-07-25 21:19:00 27.46 kg/m2 [facility] Oxygen saturation in Arterial blood by Pulse oximetry 2024-07-25 21:19:00 98 /min [facility] Systolic blood pressure 2024-06-06 19:45:00 151 mm[Hg] [facility] Diastolic blood pressure 2024-06-06 19:45:00 73 mm[Hg] [facility] Heart rate 2024-06-06 19:45:00 63 /min [facility] Body temperature 2024-06-06 19:45:00 36.33 Tammi [facility] Respiratory rate 2024-06-06 19:45:00 18 /min [facility] Body height 2024-06-06 19:45:00 157.5 cm [facility] Body weight 2024-06-06 19:45:00 72.303 kg [facility] BMI 2024-06-06 19:45:00 29.15 kg/m2 [facility] Systolic blood pressure 2024-05-06 20:33:00 129 mm[Hg] [facility] Diastolic blood pressure 2024-05-06 20:33:00 78 mm[Hg] [facility] Heart rate 2024-05-06 20:33:00 65 /min [facility] Body temperature 2024-05-06 20:33:00 35.83 Tammi [facility] Respiratory rate 2024-05-06 20:33:00 16 /min [facility] Body height 2024-05-06 20:33:00 162.6 cm [facility] Body weight 2024-05-06 20:33:00 71.124 kg [facility] BMI 2024-05-06 20:33:00 26.91 kg/m2 [facility] Oxygen saturation in Arterial blood by Pulse oximetry 2024-05-06 20:33:00 98 /min [facility] Systolic blood pressure 2024-04-14 15:44:00 138 mm[Hg] [facility] Diastolic blood pressure 2024-04-14 15:44:00 86 mm[Hg] [facility] Heart rate 2024-04-14 15:44:00 58 /min [facility] Respiratory rate 2024-04-14 15:44:00 16 /min [facility] Body height 2024-04-14 15:44:00 162.6 cm [facility] Body weight 2024-04-14 15:44:00 73.211 kg [facility] BMI 2024-04-14 15:44:00 27.70 kg/m2 [facility] Systolic blood pressure 2023-11-06 17:29:00 116 mm[Hg] [facility] Diastolic blood pressure 2023-11-06 17:29:00 66 mm[Hg] [facility] Heart rate 2023-11-06 17:29:00 63 /min [facility] Respiratory rate 2023-11-06 17:29:00 18 /min [facility] Body height 2023-11-06 17:29:00 162.6 cm [facility] Body weight 2023-11-06 17:29:00 75.297 kg [facility] BMI 2023-11-06 17:29:00 28.49 kg/m2 [facility] Oxygen saturation in Arterial blood by Pulse oximetry 2023-11-06 17:29:00 96 /min [facility] Body weight 2023-10-09 16:45:00 69.854 kg [facility] BMI 2023-10-09 16:45:00 29.10 kg/m2 [facility] Systolic blood pressure 2023-06-17 21:54:00 138 mm[Hg] [facility] Diastolic blood pressure 2023-06-17 21:54:00 90 mm[Hg] [facility] Heart rate 2023-06-17 21:54:00 50 /min [facility] Body temperature 2023-06-17 21:54:00 36.44 Tammi [facility] Respiratory rate 2023-06-17 21:54:00 18 /min [facility] Body weight 2023-06-17 21:54:00 69.854 kg [facility] BMI 2023-06-17 21:54:00 29.10 kg/m2 [facility] Oxygen saturation in Arterial blood by Pulse oximetry 2023-06-17 21:54:00 98 /min [facility] Systolic blood pressure 2023-04-20 19:29:00 148 mm[Hg] [facility] Diastolic blood pressure 2023-04-20 19:29:00 71 mm[Hg] [facility] Heart rate 2023-04-20 19:29:00 80 /min [facility] Body height 2023-04-20 19:29:00 154.9 cm [facility] Body weight 2023-04-20 19:29:00 74.345 kg [facility] BMI 2023-04-20 19:29:00 30.97 kg/m2 [facility] Systolic blood pressure 2023-04-03 14:22:00 147 mm[Hg] [facility] Diastolic blood pressure 2023-04-03 14:22:00 71 mm[Hg] [facility] Heart rate 2023-04-03 14:21:00 56 /min [facility] Body temperature 2023-04-03 14:21:00 36.83 Tammi [facility] Respiratory rate 2023-04-03 14:21:00 20 /min [facility] Body height 2023-04-03 14:21:00 154.9 cm [facility] Body weight 2023-04-03 14:21:00 73.664 kg [facility] BMI 2023-04-03 14:21:00 30.69 kg/m2 [facility] Oxygen saturation in Arterial blood by Pulse oximetry 2023-04-03 14:21:00 97 /min [facility] Body height 2023-04-01 18:38:00 152.4 cm [facility] Body weight 2023-04-01 18:38:00 73.982 kg [facility] BMI 2023-04-01 18:38:00 31.85 kg/m2 [facility] Systolic blood pressure 2023-03-10 22:00:00 140 mm[Hg] [facility] Diastolic blood pressure 2023-03-10 22:00:00 65 mm[Hg] [facility] Heart rate 2023-03-10 22:00:00 53 /min [facility] Respiratory rate 2023-03-10 22:00:00 16 /min [facility] Oxygen saturation in Arterial blood by Pulse oximetry 2023-03-10 22:00:00 98 /min [facility] Body temperature 2023-03-10 19:24:00 37 Tammi [facility] Body weight 2023-03-10 19:24:00 79.833 kg [facility] BMI 2023-03-10 19:24:00 29.29 kg/m2 [facility] Systolic blood pressure 2023-02-11 18:58:00 145 mm[Hg] [facility] Diastolic blood pressure 2023-02-11 18:58:00 74 mm[Hg] [facility] Heart rate 2023-02-11 18:57:00 57 /min [facility] Body temperature 2023-02-11 18:57:00 36.78 Tammi [facility] Respiratory rate 2023-02-11 18:57:00 18 /min [facility] Body height 2023-02-11 18:57:00 165.1 cm [facility] Body weight 2023-02-11 18:57:00 79.833 kg [facility] BMI 2023-02-11 18:57:00 29.29 kg/m2 [facility] Oxygen saturation in Arterial blood by Pulse oximetry 2023-02-11 18:57:00 95 /min [facility] Systolic blood pressure 2022-11-01 03:01:00 138 mm[Hg] [facility] Diastolic blood pressure 2022-11-01 03:01:00 87 mm[Hg] [facility] Heart rate 2022-11-01 03:00:00 57 /min [facility] Body temperature 2022-11-01 03:00:00 36.94 Tammi [facility] Respiratory rate 2022-11-01 03:00:00 16 /min [facility] Body height 2022-11-01 03:00:00 162.6 cm [facility] Body weight 2022-11-01 03:00:00 80.06 kg [facility] BMI 2022-11-01 03:00:00 30.30 kg/m2 [facility] Oxygen saturation in Arterial blood by Pulse oximetry 2022-11-01 03:00:00 95 /min [facility] Body weight 2022-08-15 20:46:00 78.2 kg [facility] BMI 2022-08-15 20:46:00 30.54 kg/m2 [facility] Systolic blood pressure 2022-07-23 13:06:00 116 mm[Hg] [facility] Diastolic blood pressure 2022-07-23 13:06:00 89 mm[Hg] [facility] Heart rate 2022-07-23 13:06:00 72 /min [facility] Body temperature 2022-07-23 13:06:00 38 Tammi [facility] Respiratory rate 2022-07-23 13:06:00 18 /min [facility] Body weight 2022-07-23 13:06:00 84.369 kg [facility] BMI 2022-07-23 13:06:00 32.95 kg/m2 [facility] Oxygen saturation in Arterial blood by Pulse oximetry 2022-07-23 13:06:00 99 /min [facility] Systolic blood pressure 2022-04-02 19:43:00 155 mm[Hg] [facility] Diastolic blood pressure 2022-04-02 19:43:00 71 mm[Hg] [facility] Heart rate 2022-04-02 19:43:00 187 /min [facility] Body temperature 2022-04-02 19:43:00 36.83 Tammi [facility] Respiratory rate 2022-04-02 19:43:00 18 /min [facility] Body height 2022-04-02 19:43:00 160 cm [facility] Body weight 2022-04-02 19:43:00 84.641 kg [facility] BMI 2022-04-02 19:43:00 33.05 kg/m2 [facility] BP Systolic 2024-09-23 13:39:00 159 mm[Hg] Step [facility] BP Diastolic 2024-09-23 13:39:00 97 mm[Hg] Shad [facility] Weight Measured 2024-09-23 13:39:00 152.00 pounds William [facility] Height Measured 2024-09-23 13:39:00 60.50 inches [facility] Body Temperature 2024-09-23 13:39:00 98.90 degrees [facility] Heart Rate 2024-09-23 13:39:00 69.00 /min [facility] Respiratory Rate 2024-09-23 13:39:00 William F Joni BP Systolic 2024-09-15 17:25:00 137 mm[Hg] [facility] BP Diastolic 2024-09-15 17:25:00 80 mm[Hg] Shad [facility] Weight Measured 2024-09-15 17:25:00 151.40 pounds [facility] Height Measured 2024-09-15 17:25:00 60.50 inches [facility] Body Temperature 2024-09-15 17:25:00 97.70 degrees [facility] Heart Rate 2024-09-15 17:25:00 61.00 /min [facility] Respiratory Rate 2024-09-15 17:25:00 William F Joni BP Systolic 2024-08-18 14:17:00 136 mm[Hg] Step [facility] BP Diastolic 2024-08-18 14:17:00 83 mm[Hg] Shad [facility] Weight Measured 2024-08-18 14:17:00 149.60 pounds [facility] F [facility] Height Measured 2024-08-18 14:17:00 60.50 inches [facility] Body Temperature 2024-08-18 14:17:00 98.00 degrees [facility] Heart Rate 2024-08-18 14:17:00 64.00 /min [facility] Respiratory Rate 2024-08-18 14:17:00 18.00 /min [facility] BP Systolic 2024-08-02 14:13:00 137 mm[Hg] [facility] BP Diastolic 2024-08-02 14:13:00 83 mm[Hg] Shad [facility] Weight Measured 2024-08-02 14:13:00 155.40 pounds [facility] Height Measured 2024-08-02 14:13:00 60.50 inches [facility] Body Temperature 2024-08-02 14:13:00 97.90 degrees [facility] Heart Rate 2024-08-02 14:13:00 64.00 /min [facility] Respiratory Rate 2024-08-02 14:13:00 William F Joni BP Systolic 2024-06-10 15:35:00 149 mm[Hg] [facility] BP Diastolic 2024-06-10 15:35:00 73 mm[Hg] Shad [facility] Weight Measured 2024-06-10 15:35:00 162.40 pounds William [facility] Height Measured 2024-06-10 15:35:00 60.50 inches [facility] Body Temperature 2024-06-10 15:35:00 97.90 degrees William F Joni Heart Rate 2024-06-10 15:35:00 52.00 /min [facility] Respiratory Rate 2024-06-10 15:35:00 William F Joni BP Systolic 2024-04-28 14:19:00 136 mm[Hg] [facility] BP Diastolic 2024-04-28 14:19:00 65 mm[Hg] Shad phen [facility] Weight Measured 2024-04-28 14:19:00 158.40 pounds William F Jon[facility] Height Measured 2024-04-28 14:19:00 60.50 inches [facility] Body Temperature 2024-04-28 14:19:00 97.90 degrees William F Joni Heart Rate 2024-04-28 14:19:00 71.00 /min [facility] Respiratory Rate 2024-04-28 14:19:00 William F Joni BP Systolic 2024-01-04 14:16:00 146 mm[Hg] [facility] BP Diastolic 2024-01-04 14:16:00 75 mm[Hg] Shad phen [facility] Weight Measured 2024-01-04 14:16:00 163.80 pounds William F [facility] Height Measured 2024-01-04 14:16:00 60.50 inches [facility] Body Temperature 2024-01-04 14:16:00 97.90 degrees William F Joni Heart Rate 2024-01-04 14:16:00 54.00 /min [facility] Respiratory Rate 2024-01-04 14:16:00 William F Joni BP Systolic 2023-11-26 09:51:00 Step hen F Joni BP Diastolic 2023-11-26 09:51:00 Shad phen F [facility] Weight Measured 2023-11-26 09:51:00 158.00 pounds William F [facility] Height Measured 2023-11-26 09:51:00 60.50 inches [facility] Body Temperature 2023-11-26 09:51:00 William F Joni Heart Rate 2023-11-26 09:51:00 Christie en [facility] Respiratory Rate 2023-11-26 09:51:00 William F Joni BP Systolic 2023-10-07 14:09:00 128 mm[Hg] Step [facility] BP Diastolic 2023-10-07 14:09:00 82 mm[Hg] Shad phen F Joni Weight Measured 2023-10-07 14:09:00 158.00 pounds William F Joni Height Measured 2023-10-07 14:09:00 60.50 inches William F Joni Body Temperature 2023-10-07 14:09:00 97.40 degrees William F Joni Heart Rate 2023-10-07 14:09:00 61.00 /min Christie en F Joni Respiratory Rate 2023-10-07 14:09:00 William F Joni BP Systolic 2023-08-10 14:44:00 140 mm[Hg] Step hen F Joni BP Diastolic 2023-08-10 14:44:00 75 mm[Hg] Shad phen F Joni Weight Measured 2023-08-10 14:44:00 159.00 pounds William F Joni Height Measured 2023-08-10 14:44:00 60.50 inches William F Joni Body Temperature 2023-08-10 14:44:00 98.30 degrees William F Joni Heart Rate 2023-08-10 14:44:00 50.00 /min Christie en F Joni Respiratory Rate 2023-08-10 14:44:00 William F Joni Body Temperature 2023-07-29 11:35:00 98.30 degrees William F Joni Heart Rate 2023-07-29 11:35:00 50.00 /min Christie en F Joni Respiratory Rate 2023-07-29 11:35:00 William F Joni BP Systolic 2023-07-29 11:35:00 155 mm[Hg] Step hen F Joni BP Diastolic 2023-07-29 11:35:00 79 mm[Hg] Shad phen F Joni Weight Measured 2023-07-29 11:35:00 161.40 pounds William F Joni Height Measured 2023-07-29 11:35:00 60.50 inches William F Joni BP Systolic 2023-07-01 12:06:00 179 mm[Hg] Step hen F Joni BP Diastolic 2023-07-01 12:06:00 84 mm[Hg] Shad phen F Joni Weight Measured 2023-07-01 12:06:00 157.20 pounds William F Joni Height Measured 2023-07-01 12:06:00 60.50 inches William F Joni Body Temperature 2023-07-01 12:06:00 98.40 degrees William F Joni Heart Rate 2023-07-01 12:06:00 50.00 /min Christie en F Joni Respiratory Rate 2023-07-01 12:06:00 William F Joni BP Systolic 2023-03-18 15:19:00 131 mm[Hg] Step hen F Joni BP Diastolic 2023-03-18 15:19:00 85 mm[Hg] Shad phen F Joni Weight Measured 2023-03-18 15:19:00 161.60 pounds William F Joni Height Measured 2023-03-18 15:19:00 60.50 inches William F Joni Body Temperature 2023-03-18 15:19:00 97.50 degrees William F Joni Heart Rate 2023-03-18 15:19:00 73.00 /min Christie en F Joni Respiratory Rate 2023-03-18 15:19:00 William F Joni BP Systolic 2023-02-23 16:02:00 204 mm[Hg] Step hen F Jnoi BP Diastolic 2023-02-23 16:02:00 80 mm[Hg] Shad phen F Joni Weight Measured 2023-02-23 16:02:00 166.20 pounds William F Joni Height Measured 2023-02-23 16:02:00 60.50 inches William F Joni Body Temperature 2023-02-23 16:02:00 98.60 degrees William F Joni Heart Rate 2023-02-23 16:02:00 52.00 /min Christie en F Joni Respiratory Rate 2023-02-23 16:02:00 William F Joni BP Systolic 2022-12-24 17:08:00 173 mm[Hg] Step hen F Joni BP Diastolic 2022-12-24 17:08:00 78 mm[Hg] Shad phen F Joni Weight Measured 2022-12-24 17:08:00 179.00 pounds William F Joni Height Measured 2022-12-24 17:08:00 60.50 inches William F Joni Body Temperature 2022-12-24 17:08:00 98.20 degrees William F Joni Heart Rate 2022-12-24 17:08:00 77.00 /min Christie en F Joni Respiratory Rate 2022-12-24 17:08:00 William F Joni BP Systolic 2022-11-03 14:56:00 154 mm[Hg] Step hen F Joni BP Diastolic 2022-11-03 14:56:00 93 mm[Hg] Shad phen F Joni Weight Measured 2022-11-03 14:56:00 172.60 pounds William F Joni Height Measured 2022-11-03 14:56:00 60.50 inches William F Joni Body Temperature 2022-11-03 14:56:00 98.10 degrees William F Joni Heart Rate 2022-11-03 14:56:00 66.00 /min Christie en F Joni Respiratory Rate 2022-11-03 14:56:00 William F Joni BP Systolic 2022-06-02 13:43:00 162 mm[Hg] BP Diastolic 2022-06-02 13:43:00 84 mm[Hg] Weight Measured 2022-06-02 13:43:00 182.00 pounds Height Measured 2022-06-02 13:43:00 60.50 inches Body Temperature 2022-06-02 13:43:00 98.70 degrees Heart Rate 2022-06-02 13:43:00 65.00 /min Respiratory Rate 2022-06-02 13:43:00 BP Systolic 2022-03-17 15:52:00 146 mm[Hg] BP Diastolic 2022-03-17 15:52:00 79 mm[Hg] Weight Measured 2022-03-17 15:52:00 185.40 pounds Height Measured 2022-03-17 15:52:00 60.50 inches Body Temperature 2022-03-17 15:52:00 98.70 degrees Heart Rate 2022-03-17 15:52:00 72.00 /min Respiratory Rate 2022-03-17 15:52:00 BP Systolic 2022-02-12 15:57:00 159 mm[Hg] BP Diastolic 2022-02-12 15:57:00 77 mm[Hg] Weight Measured 2022-02-12 15:57:00 183.60 pounds Height Measured 2022-02-12 15:57:00 60.50 inches Body Temperature 2022-02-12 15:57:00 98.50 degrees Heart Rate 2022-02-12 15:57:00 63.00 /min Respiratory Rate 2022-02-12 15:57:00 BP Systolic 2022-01-20 16:22:00 176 mm[Hg] BP Diastolic 2022-01-20 16:22:00 82 mm[Hg] Weight Measured 2022-01-20 16:22:00 180.00 pounds Height Measured 2022-01-20 16:22:00 60.50 inches Body Temperature 2022-01-20 16:22:00 98.00 degrees Heart Rate 2022-01-20 16:22:00 57.00 /min Respiratory Rate 2022-01-20 16:22:00 BP Systolic 2021-05-30 17:15:00 129 mm[Hg] BP Diastolic 2021-05-30 17:15:00 68 mm[Hg] Weight Measured 2021-05-30 17:15:00 183.40 pounds Height Measured 2021-05-30 17:15:00 60.50 inches Body Temperature 2021-05-30 17:15:00 97.40 degrees Heart Rate 2021-05-30 17:15:00 56.00 /min Respiratory Rate 2021-05-30 17:15:00 21.00 /min BP Systolic 2021-05-30 16:39:00 129 mm[Hg] BP Diastolic 2021-05-30 16:39:00 68 mm[Hg] Weight Measured 2021-05-30 16:39:00 183.40 pounds Height Measured 2021-05-30 16:39:00 60.50 inches Body Temperature 2021-05-30 16:39:00 97.40 degrees Heart Rate 2021-05-30 16:39:00 56.00 /min Respiratory Rate 2021-05-30 16:39:00 21.00 /min BP Systolic 2021-04-01 14:59:00 129 mm[Hg] BP Diastolic 2021-04-01 14:59:00 76 mm[Hg] Weight Measured 2021-04-01 14:59:00 178.00 pounds Height Measured 2021-04-01 14:59:00 60.50 inches Body Temperature 2021-04-01 14:59:00 97.60 degrees Heart Rate 2021-04-01 14:59:00 60.00 /min Respiratory Rate 2021-04-01 14:59:00 BP Systolic 2021-02-19 16:32:00 122 mm[Hg] BP Diastolic 2021-02-19 16:32:00 76 mm[Hg] Weight Measured 2021-02-19 16:32:00 176.80 pounds Height Measured 2021-02-19 16:32:00 61.00 inches Body Temperature 2021-02-19 16:32:00 97.40 degrees Heart Rate 2021-02-19 16:32:00 54.00 /min Respiratory Rate 2021-02-19 16:32:00 BP Systolic 2021-01-29 16:17:00 149 mm[Hg] BP Diastolic 2021-01-29 16:17:00 69 mm[Hg] Weight Measured 2021-01-29 16:17:00 181.40 pounds Height Measured 2021-01-29 16:17:00 61.00 inches Body Temperature 2021-01-29 16:17:00 Heart Rate 2021-01-29 16:17:00 53.00 /min Respiratory Rate 2021-01-29 16:17:00 BP Systolic 2020-12-26 15:51:00 136 mm[Hg] BP Diastolic 2020-12-26 15:51:00 77 mm[Hg] Weight Measured 2020-12-26 15:51:00 177.20 pounds Height Measured 2020-12-26 15:51:00 61.00 inches Body Temperature 2020-12-26 15:51:00 98.00 degrees Heart Rate 2020-12-26 15:51:00 64.00 /min Respiratory Rate 2020-12-26 15:51:00 Weight 2019-12-01 17:00:00 [facility] Height 2019-12-01 17:00:00 [facility] Heart Rate 2019-12-01 17:00:00 [facility] Diastolic (mm Hg) 2019-12-01 17:00:00 [facility] Systolic (mm Hg) 2019-12-01 17:00:00 [facility] Weight 2019-08-03 21:00:00 [facility] Height 2019-08-03 21:00:00 [facility] Heart Rate 2019-08-03 21:00:00 [facility] Diastolic (mm Hg) 2019-08-03 21:00:00 [facility] Systolic (mm Hg) 2019-08-03 21:00:00 [facility] Weight 2019-03-29 17:15:00 [facility] Height 2019-03-29 17:15:00 [facility] Heart Rate 2019-03-29 17:15:00 [facility] Diastolic (mm Hg) 2019-03-29 17:15:00 [facility] Systolic (mm Hg) 2019-03-29 17:15:00 [facility] Procedures Procedure Date / Time Performed Performing Clinician Source CBC WITH DIFF 2025-01-11 13:43:00 Joycelyn [facility] PHOSPHORUS 2025-01-10 16:08:00 Joycelyn [facility] MAGNESIUM 2025-01-10 16:08:00 Joycelyn [facility] BASIC METABOLIC PANEL (NA, K , CL, CO2, GLUCOSE, BUN, CREATININE, CA) 2025-01-10 16:08:00 Brandi Hirsch [facility] URINALYSIS 2025-01-09 22:45:00 Jesus Thakkar [facility] URINE CULTURE 2025-01-09 22:45:00 Jesus Thakkar [facility] PHOSPHORUS 2025-01-09 08:32:00 Nader [facility] MAGNESIUM 2025-01-09 08:32:00 Nader [facility] COMP. METABOLIC PANEL ([id number]) 2025-01-09 08:32:00 Nader [facility] CBC WITH DIFF 2025-01-09 08:32:00 Nader [facility] PHOSPHORUS 2025-01-09 08:32:00 Nader [facility] MAGNESIUM 2025-01-09 08:32:00 Nader [facility] COMP. METABOLIC PANEL ([id number]) 2025-01-09 08:32:00 Nader [facility] CBC WITH DIFF 2025-01-09 08:32:00 Nader [facility] MAGNESIUM 2025-01-08 11:36:00 Yovani Osmin [facility] BASIC METABOLIC PANEL (NA, K , CL, CO2, GLUCOSE, BUN, CREATININE, CA) 2025-01-08 11:36:00 Yovani [facility] CBC WITHOUT DIFF 2025-01-08 11:36:00 Yovani Osmin [facility] MAGNESIUM 2025-01-08 11:36:00 Yovani Osmin [facility] BASIC METABOLIC PANEL (NA, K , CL, CO2, GLUCOSE, BUN, CREATININE, CA) 2025-01-08 11:36:00 Yovani Osmin [facility] CBC WITHOUT DIFF 2025-01-08 11:36:00 Yovani Osmin [facility] TRANSFUSE PACKED RBC 2025-01-07 18:36:00 Norm Thomas [facility] TRANSFUSE PACKED RBC 2025-01-07 18:36:00 RobertsonNorm Cam [facility] PREPARE PACKED RBC 2025-01-07 18:23:03 RobertsonNorm Cam [facility] PREPARE PACKED RBC 2025-01-07 18:23:03 RobertsonNorm Cam [facility] HB ABO GROUPING 2025-01-07 16:38:00 Robertson Norm Palacio [facility] HB ABO GROUPING 2025-01-07 16:38:00 RobertsonNorm Cam Ignacio [facility] PHOSPHORUS 2025-01-07 10:24:00 Joycelyn [facility] MAGNESIUM 2025-01-07 10:24:00 Joycelyn [facility] BASIC METABOLIC PANEL (NA, K , CL, CO2, GLUCOSE, BUN, CREATININE, CA) 2025-01-07 10:24:00 Joycelyn [facility] CBC WITH DIFF 2025-01-07 10:24:00 Joycelyn [facility] PHOSPHORUS 2025-01-07 10:24:00 Joycelyn [facility] MAGNESIUM 2025-01-07 10:24:00 Joycelyn [facility] BASIC METABOLIC PANEL (NA, K , CL, CO2, GLUCOSE, BUN, CREATININE, CA) 2025-01-07 10:24:00 Joycelyn [facility] CBC WITH DIFF 2025-01-07 10:24:00 Joycelyn [facility] HEPATITIS B SURFACE ANTIBODY 2025-01-06 15:28:00 RobertsonNorm Camacio [facility] HEPATITIS B SURFACE ANTIGEN 2025-01-06 15:28:00 RobertsonNorm Cam [facility] HCV ANTIBODY 2025-01-06 15:28:00 [facility]-AB WITH REFLEX 2025-01-06 15:28:00 Robertson [facility] SURFACE ANTIBODY 2025-01-06 15:28:00 Robertson Norm Palacio [facility] HEPATITIS B SURFACE ANTIGEN 2025-01-06 15:28:00 Robertson Norm Palacio [facility] HCV ANTIBODY 2025-01-06 15:28:00 Robertson Norm Palacio [facility] HIV 1/2 AG-AB WITH REFLEX 2025-01-06 15:28:00 Robertson Norm Palacio [facility] VBG+VCOOX+NA+K+GLU+CA2+ 2025-01-06 12:00:00 Edilberto [facility] FOOT DEBRIDEMENT 2025-01-06 11:44:00 Edilberto [facility] FOOT DEBRIDEMENT 2025-01-06 11:44:00 Edilberto [facility] PHOSPHORUS 2025-01-06 10:59:00 Joycelyn [facility] MAGNESIUM 2025-01-06 10:59:00 Joycelyn, [facility] BASIC METABOLIC PANEL (NA, K , CL, CO2, GLUCOSE, BUN, CREATININE, CA) 2025-01-06 10:59:00 Joycelyn [facility] CBC WITH DIFF 2025-01-06 10:59:00 Joycelyn, [facility] PHOSPHORUS 2025-01-06 10:59:00 Joycelyn [facility] MAGNESIUM 2025-01-06 10:59:00 Joycelyn [facility] BASIC METABOLIC PANEL (NA, K , CL, CO2, GLUCOSE, BUN, CREATININE, CA) 2025-01-06 10:59:00 Joycelyn [facility] CBC WITH DIFF 2025-01-06 10:59:00 Joycelyn [facility] PHOSPHORUS 2025-01-05 10:56:00 Joycelyn, [facility] MAGNESIUM 2025-01-05 10:56:00 Joycelyn [facility] BASIC METABOLIC PANEL (NA, K , CL, CO2, GLUCOSE, BUN, CREATININE, CA) 2025-01-05 10:56:00 Joycelyn, [facility] CBC WITH DIFF 2025-01-05 10:56:00 Joycelyn [facility] PHOSPHORUS 2025-01-05 10:56:00 Joycelyn [facility] MAGNESIUM 2025-01-05 10:56:00 Joycelyn [facility] BASIC METABOLIC PANEL (NA, K , CL, CO2, GLUCOSE, BUN, CREATININE, CA) 2025-01-05 10:56:00 Joycelyn [facility] CBC WITH DIFF 2025-01-05 10:56:00 Joycelyn [facility] URINE CULTURE 2025-01-04 20:01:00 Joycelyn [facility] URINE CULTURE 2025-01-04 20:01:00 Joycelyn [facility] PHOSPHORUS 2025-01-04 12:18:00 Robertson Norm Palacio [facility] MAGNESIUM 2025-01-04 12:18:00 Robertson Norm Palacio [facility] BASIC METABOLIC PANEL (NA, K , CL, CO2, GLUCOSE, BUN, CREATININE, CA) 2025-01-04 12:18:00 Robertson Norm Palacio [facility] CBC WITH DIFF 2025-01-04 12:18:00 Robertson Norm Palacio [facility] PHOSPHORUS 2025-01-04 12:18:00 Robertson Norm Palacio [facility] MAGNESIUM 2025-01-04 12:18:00 Robertson Norm Palacio [facility] BASIC METABOLIC PANEL (NA, K , CL, CO2, GLUCOSE, BUN, CREATININE, CA) 2025-01-04 12:18:00 Robertson ChatmanNorm Chongacio [facility] CBC WITH DIFF 2025-01-04 12:18:00 Robertson ChatmanNorm Chong [facility] PHOSPHORUS 2025-01-03 10:03:00 Robertson silva Norm El [facility] MAGNESIUM 2025-01-03 10:03:00 Robertson ChatmanNorm Chong [facility] BASIC METABOLIC PANEL (NA, K , CL, CO2, GLUCOSE, BUN, CREATININE, CA) 2025-01-03 10:03:00 Robertson Norm Palacio [facility] CBC WITH DIFF 2025-01-03 10:03:00 Robertson Norm Palacio [facility] PHOSPHORUS 2025-01-03 10:03:00 Robertson Norm Palacio [facility] MAGNESIUM 2025-01-03 10:03:00 Robertson silva Norm El [facility] BASIC METABOLIC PANEL (NA, K , CL, CO2, GLUCOSE, BUN, CREATININE, CA) 2025-01-03 10:03:00 Robertson Norm Palacio [facility] CBC WITH DIFF 2025-01-03 10:03:00 Robertson Norm Palacio [facility] PHOSPHORUS 2025-01-02 09:46:00 Robertson Norm Palacio [facility] MAGNESIUM 2025-01-02 09:46:00 Robertson Norm Palacio [facility] BASIC METABOLIC PANEL (NA, K , CL, CO2, GLUCOSE, BUN, CREATININE, CA) 2025-01-02 09:46:00 Robertson Norm Palacio [facility] CBC WITH DIFF 2025-01-02 09:46:00 Robertson Norm Palacio Ignacio [facility] PHOSPHORUS 2025-01-02 09:46:00 Robertson Norm Palacioacio [facility] MAGNESIUM 2025-01-02 09:46:00 Robertson Norm Palacio [facility] BASIC METABOLIC PANEL (NA, K , CL, CO2, GLUCOSE, BUN, CREATININE, CA) 2025-01-02 09:46:00 Robertson de Norm El [facility] CBC WITH DIFF 2025-01-02 09:46:00 Robertson Norm Palacio [facility] PHOSPHORUS 2025-01-01 11:18:00 Robertson Norm Palacio [facility] MAGNESIUM 2025-01-01 11:18:00 Robertson Norm Palacio [facility] BASIC METABOLIC PANEL (NA, K , CL, CO2, GLUCOSE, BUN, CREATININE, CA) 2025-01-01 11:18:00 Robertson Norm Palacio [facility] CBC WITH DIFF 2025-01-01 11:18:00 Robertson Norm Palacio [facility] PHOSPHORUS 2025-01-01 11:18:00 Robertson Norm Palacio [facility] MAGNESIUM 2025-01-01 11:18:00 Robertson Norm Palacio [facility] BASIC METABOLIC PANEL (NA, K , CL, CO2, GLUCOSE, BUN, CREATININE, CA) 2025-01-01 11:18:00 Robertson Norm Palacio [facility] CBC WITH DIFF 2025-01-01 11:18:00 Robertson Norm Palacio [facility] PHOSPHORUS 2024-12-31 11:02:00 Robertson [facility] 2024-12-31 11:02:00 Robertson [facility] BASIC METABOLIC PANEL (NA, K , CL, CO2, GLUCOSE, BUN, CREATININE, CA) 2024-12-31 11:02:00 [facility] 2024-12-31 11:02:00 Robertson Bruce Norm Carbajal [facility] PHOSPHORUS 2024-12-31 11:02:00 Robertson Bruce Norm Carbajal [facility] MAGNESIUM 2024-12-31 11:02:00 Robertson Bruce Norm Carbajal [facility] BASIC METABOLIC PANEL (NA, K , CL, CO2, GLUCOSE, BUN, CREATININE, CA) 2024-12-31 11:02:00 Robertson ChatmanNorm Chong [facility] CBC WITH DIFF 2024-12-31 11:02:00 Robertson Bruce Nomr Carbajal [facility] PHOSPHORUS 2024-12-30 08:55:00 Robertson SmithNorm Jim [facility] MAGNESIUM 2024-12-30 08:55:00 Robertson Bruce Norm Carbajal [facility] BASIC METABOLIC PANEL (NA, K , CL, CO2, GLUCOSE, BUN, CREATININE, CA) 2024-12-30 08:55:00 Robertson Bruce Norm Carbajal [facility] CBC WITH DIFF 2024-12-30 08:55:00 Robertson SmithNorm Jim [facility] PHOSPHORUS 2024-12-30 08:55:00 Robertson Bruce Norm Carbajal [facility] MAGNESIUM 2024-12-30 08:55:00 Robertson silva DreNorm Chong [facility] BASIC METABOLIC PANEL (NA, K , CL, CO2, GLUCOSE, BUN, CREATININE, CA) 2024-12-30 08:55:00 [facility] 2024-12-30 08:55:00 Robertson Norm Palacio [facility] PHOSPHORUS 2024-12-29 10:23:00 Robertson [facility] 2024-12-29 10:23:00 Robertson [facility] BASIC METABOLIC PANEL (NA, K , CL, CO2, GLUCOSE, BUN, CREATININE, CA) 2024-12-29 10:23:00 Robertson [facility] WITH DIFF 2024-12-29 10:23:00 [facility]hishek [facility] 2024-12-29 10:23:00 Robertson Norm Palacio [facility] MAGNESIUM 2024-12-29 10:23:00 Robertson de Norm El [facility] BASIC METABOLIC PANEL (NA, K , CL, CO2, GLUCOSE, BUN, CREATININE, CA) 2024-12-29 10:23:00 Robertson Norm Palacio [facility] CBC WITH DIFF 2024-12-29 10:23:00 Robertson Bruce Norm Carbajal [facility] ACTIVATED PARTIAL THRMPLAS KATIE 2024-12-29 05:29:00 Jesus Thakkar [facility] ACTIVATED PARTIAL THRMPLAS KATIE 2024-12-29 05:29:00 Jesus Thakkar [facility] ACTIVATED PARTIAL THRMPLAS KATIE 2024-12-28 17:46:00 Jesus Thakkar [facility] ACTIVATED PARTIAL THRMPLAS KATIE 2024-12-28 17:46:00 Jesus Thakkar [facility] DME/SUPPLY JUSTIFICATION 2024-12-28 13:08:50 Doctor Unassigned, [place] [facility] DME/SUPPLY JUSTIFICATION 2024-12-28 13:08:39 Doctor Unassigned, [place] [facility] MAGNESIUM 2024-12-28 09:16:00 Osmin Pinaooq [facility] BASIC METABOLIC PANEL (NA, K , CL, CO2, GLUCOSE, BUN, CREATININE, CA) 2024-12-28 09:16:00 Osmin Pinaooq [facility] CBC WITHOUT DIFF 2024-12-28 09:16:00 Osmin Pina Wale [facility] ACTIVATED PARTIAL THRMPLAS KATIE 2024-12-28 09:16:00 Jesus Thakkar [facility] MAGNESIUM 2024-12-28 09:16:00 Yovani Osmin [facility] BASIC METABOLIC PANEL (NA, K , CL, CO2, GLUCOSE, BUN, CREATININE, CA) 2024-12-28 09:16:00 Osmin Pinaooq [facility] CBC WITHOUT DIFF 2024-12-28 09:16:00 Osmin Pinaooq [facility] ACTIVATED PARTIAL THRMPLAS KATIE 2024-12-28 09:16:00 Bijan [facility] ACTIVATED PARTIAL THRMPLAS KATIE 2024-12-27 23:12:00 Bijan [facility] ACTIVATED PARTIAL THRMPLAS KATIE 2024-12-27 23:12:00 Bijan [facility] ACTIVATED PARTIAL THRMPLAS KATIE 2024-12-27 15:33:00 [facility] PARTIAL THRMPLAS KATIE 2024-12-27 15:33:00 Jesus Thakkar [facility] PHOSPHORUS 2024-12-27 09:03:00 Arely Mauricio [facility] MAGNESIUM 2024-12-27 09:03:00 Luly Arely [facility] THYROID STIMULATING HORMONE 2024-12-27 09:03:00 Samuel Brady [facility] BASIC METABOLIC PANEL (NA, K , CL, CO2, GLUCOSE, BUN, CREATININE, CA) 2024-12-27 09:03:00 Arely Mauricio [facility] CBC WITH DIFF 2024-12-27 09:03:00 Arely Mauricio [facility] PHOSPHORUS 2024-12-27 09:03:00 Arely Mauricio [facility] MAGNESIUM 2024-12-27 09:03:00 Luly [facility] THYROID STIMULATING HORMONE 2024-12-27 09:03:00 Samuel Brady [facility] BASIC METABOLIC PANEL (NA, K , CL, CO2, GLUCOSE, BUN, CREATININE, CA) 2024-12-27 09:03:00 Arely Mauricio [facility] CBC WITH DIFF 2024-12-27 09:03:00 Luly [facility] URINE CULTURE 2024-12-27 07:23:00 [facility] 2024-12-27 07:23:00 Kenneth [facility] ACTIVATED PARTIAL THRMPLAS KATIE 2024-12-27 04:35:00 Bijan [facility] ACTIVATED PARTIAL THRMPLAS KATIE 2024-12-27 04:35:00 Bijan [facility] ACTIVATED PARTIAL THRMPLAS KATIE 2024-12-26 21:20:00 Bijan [facility] ACTIVATED PARTIAL THRMPLAS KATIE 2024-12-26 21:20:00 Bijan [facility] ACTIVATED PARTIAL THRMPLAS KATIE 2024-12-26 18:47:00 Bijan [facility] ACTIVATED PARTIAL THRMPLAS KATIE 2024-12-26 18:47:00 Bijan Jesus [facility] DME/SUPPLY JUSTIFICATION 2024-12-26 12:50:48 Doctor Unassigned, [place] [facility] ACTIVATED PARTIAL THRMPLAS KATIE 2024-12-26 11:45:00 Bijan [facility] ACTIVATED PARTIAL THRMPLAS KATIE 2024-12-26 11:45:00 Bijan [facility] ACTIVATED PARTIAL THRMPLAS KATIE 2024-12-26 11:45:00 Bijan [facility] PHOSPHORUS 2024-12-26 08:48:00 Luna [facility] MAGNESIUM 2024-12-26 08:48:00 Carrasco, [facility] BASIC METABOLIC PANEL (NA, K , CL, CO2, GLUCOSE, BUN, CREATININE, CA) 2024-12-26 08:48:00 Carrasco, [facility] CBC WITH DIFF 2024-12-26 08:48:00 Carrasco, [facility] PHOSPHORUS 2024-12-26 08:48:00 Carrasco, [facility] MAGNESIUM 2024-12-26 08:48:00 Carrasco, [facility] BASIC METABOLIC PANEL (NA, K , CL, CO2, GLUCOSE, BUN, CREATININE, CA) 2024-12-26 08:48:00 Carrasco, [facility] CBC WITH DIFF 2024-12-26 08:48:00 Carrasco, [facility] PHOSPHORUS 2024-12-26 08:48:00 Carrasco, [facility] MAGNESIUM 2024-12-26 08:48:00 Carrasco, [facility] BASIC METABOLIC PANEL (NA, K , CL, CO2, GLUCOSE, BUN, CREATININE, CA) 2024-12-26 08:48:00 Carrasco, [facility] CBC WITH DIFF 2024-12-26 08:48:00 Carrasco, [facility] URINALYSIS 2024-12-26 04:17:00 Bijan [facility] URINALYSIS 2024-12-26 04:17:00 Bijan [facility] URINALYSIS 2024-12-26 04:17:00 Bijan [facility] CBC WITHOUT DIFF 2024-12-25 22:38:00 Bijan [facility] CBC WITHOUT DIFF 2024-12-25 22:38:00 Bijan, [facility] CBC WITHOUT DIFF 2024-12-25 22:38:00 Bijan [facility] TRANSFUSE PACKED RBC 2024-12-25 15:41:00 Rita [facility] TRANSFUSE PACKED RBC 2024-12-25 15:41:00 Rita Johnson [facility] 2024-12-25 15:28:34 [facility] PREPARE PACKED RBC 2024-12-25 15:28:34 Rita [facility] PREPARE PACKED RBC 2024-12-25 15:28:34 [facility] BASIC METABOLIC PANEL (NA, K , CL, CO2, GLUCOSE, BUN, CREATININE, CA) 2024-12-25 11:24:00 [facility] CBC WITH DIFF 2024-12-25 11:24:00 Rita [facility] BASIC METABOLIC PANEL (NA, K , CL, CO2, GLUCOSE, BUN, CREATININE, CA) 2024-12-25 11:24:00 [facility] CBC WITH DIFF 2024-12-25 11:24:00 Rita [facility] BASIC METABOLIC PANEL (NA, K , CL, CO2, GLUCOSE, BUN, CREATININE, CA) 2024-12-25 11:24:00 [facility] CBC WITH DIFF 2024-12-25 11:24:00 Rita [facility] PHOSPHORUS 2024-12-25 09:16:00 Rita [facility] MAGNESIUM 2024-12-25 09:16:00 Rita [facility] BASIC METABOLIC PANEL (NA, K , CL, CO2, GLUCOSE, BUN, CREATININE, CA) 2024-12-25 09:16:00 [facility] CBC WITH DIFF 2024-12-25 09:16:00 Rita [facility] PHOSPHORUS 2024-12-25 09:16:00 Rita [facility] MAGNESIUM 2024-12-25 09:16:00 Rita [facility] BASIC METABOLIC PANEL (NA, K , CL, CO2, GLUCOSE, BUN, CREATININE, CA) 2024-12-25 09:16:00 [facility] CBC WITH DIFF 2024-12-25 09:16:00 Rita [facility] PHOSPHORUS 2024-12-25 09:16:00 Rita [facility] MAGNESIUM 2024-12-25 09:16:00 Rita [facility] BASIC METABOLIC PANEL (NA, K , CL, CO2, GLUCOSE, BUN, CREATININE, CA) 2024-12-25 09:16:00 Rtia [facility] CBC WITH DIFF 2024-12-25 09:16:00 Rita [facility] BASIC METABOLIC PANEL (NA, K , CL, CO2, GLUCOSE, BUN, CREATININE, CA) 2024-12-24 15:37:00 Bijan [facility] CBC WITH DIFF 2024-12-24 15:37:00 Bijan [facility] BASIC METABOLIC PANEL (NA, K , CL, CO2, GLUCOSE, BUN, CREATININE, CA) 2024-12-24 15:37:00 Bijan [facility] CBC WITH DIFF 2024-12-24 15:37:00 Bijan [facility] BASIC METABOLIC PANEL (NA, K , CL, CO2, GLUCOSE, BUN, CREATININE, CA) 2024-12-24 15:37:00 Bijan [facility] CBC WITH DIFF 2024-12-24 15:37:00 Bijan [facility] BASIC METABOLIC PANEL (NA, K , CL, CO2, GLUCOSE, BUN, CREATININE, CA) 2024-12-23 23:00:00 Bijan [facility] CBC WITH DIFF 2024-12-23 23:00:00 Bijan [facility] BASIC METABOLIC PANEL (NA, K , CL, CO2, GLUCOSE, BUN, CREATININE, CA) 2024-12-23 23:00:00 Bijan [facility] CBC WITH DIFF 2024-12-23 23:00:00 Bijan [facility] BASIC METABOLIC PANEL (NA, K , CL, CO2, GLUCOSE, BUN, CREATININE, CA) 2024-12-23 23:00:00 Bijan [facility] CBC WITH DIFF 2024-12-23 23:00:00 [facility] 2024-12-23 22:58:00 Nader Casanova [facility] POCT GLUCOSE (AUTOMATED) 2024-12-23 22:58:00 Nader Casanova [facility] POCT GLUCOSE (AUTOMATED) 2024-12-23 22:58:00 Nader Casanova [facility] FL TIME OR (NON-REPORTABLE) 2024-12-23 22:45:15 Nader Casanova [facility] FL TIME OR (NON-REPORTABLE) 2024-12-23 22:45:15 Nader Casanova [facility] FL TIME OR (NON-REPORTABLE) 2024-12-23 22:45:15 Nader Casanova [facility] SURGICAL PATHOLOGY EXAM 2024-12-23 22:03:00 Nader Casanova [facility] VBG+VCOOX+NA+K+GLU+CA2+ 2024-12-23 21:53:00 Nader Casanova [facility] VBG+VCOOX+NA+K+GLU+CA2+ 2024-12-23 21:53:00 Nader Casanova [facility] POCT ACT HIGH RANGE 2024-12-23 21:49:00 Nader Casanova [facility] POCT ACT HIGH RANGE 2024-12-23 21:49:00 Nader Casanova [facility] POCT ACT HIGH RANGE 2024-12-23 20:53:00 Nader Casanova [facility] POCT ACT HIGH RANGE 2024-12-23 20:53:00 Nader Casanova [facility] POCT ACT HIGH RANGE 2024-12-23 20:53:00 Nader Casanova [facility] POCT ACT HIGH RANGE 2024-12-23 20:31:00 Nader Casanova [facility] POCT ACT HIGH RANGE 2024-12-23 20:31:00 Nader Casanova [facility] POCT ACT HIGH RANGE 2024-12-23 20:31:00 Nader Casanova [facility] [id number] - [place] DEBRIDEMENT SUBCUTANEOUS TISSUE 1ST 20 SQ CM/< 2024-12-23 17:47:00 Nader Casanoav [facility] [address] - [place] DEBRIDEMENT MUSCL E &/FASCIA 1ST 20 SQ CM/< 2024-12-23 17:47:00 Nader Casanova [facility] [address] - [place] DEBRIDEMENT BONE 1ST 20 SQ CM/< 2024-12-23 17:47:00 Nader Casanova [facility] [address] - CHG ANGIOGRAPHY EXTREMITY BILATERAL RS&I 2024-12-23 17:47:00 Nader Casanova [facility] [address] - G AORTOGRAPHY ABDOMINAL SERIALOGRAPHY RS&I 2024-12-23 17:47:00 Nader Casanova [facility] [address] - CHG US VASC ACCESS SITS VSL PATENCY NDL ENTRY 2024-12-23 17:47:00 Nader Casanova [facility] [address] - [place] SLCTV CATHJ 3RD+ ORD SLCTV ABDL PEL/LXTR [facility] 2024-12-23 17:47:00 Nader Casanova [facility] [address] - [place] SLCTV CATHJ EA 2ND+ ORD ABDL PEL/LXTR [facility] 2024-12-23 17:47:00 Nader Casanova [facility] [address] - [place] THROMBOLYSIS ARTERIAL INFUSION ICRA RS&I INIT [place] 2024-12-23 17:47:00 Nader Casanova [facility] [address] - [place] REVSC OPN/PRQ ILIAC ART W/STNT PLMT & ANGIOPLSTY 2024-12-23 17:47:00 Nader Casanova [facility] [address] - [place] REVSC OPN/PRQ FEM/POP W/STNT/ATHRC/ANGIOP [facility] 2024-12-23 17:47:00 Nader Casanova [facility] [address] - [place] REVSC OPN/PRQ TIB/JOSS W/STNT/ATHR/ANGIOP [facility] 2024-12-23 17:47:00 Nader Casanova [facility] [address] - [place] DEBRIDEMENT SUBCUTANEOUS TISSUE 1ST 20 SQ CM/< 2024-12-23 17:47:00 Nader Casanova [facility] [address] - [place] DEBRIDEMENT MUSCL E &/FASCIA 1ST 20 SQ CM/< 2024-12-23 17:47:00 Nader Casanova [facility] [address] - [place] DEBRIDEMENT BONE 1ST 20 SQ CM/< 2024-12-23 17:47:00 Nader Casanova [facility] [address] - CHG ANGIOGRAPHY EXTREMITY BILATERAL RS&I 2024-12-23 17:47:00 Nader Casanova [facility] [address]9912 - CHG AORTOGRAPHY ABDOMINAL SERIALOGRAPHY RS&I 2024-12-23 17:47:00 Edilberto Nader [facility] [address] - CHG US VASC ACCESS SITS VSL PATENCY NDL ENTRY 2024-12-23 17:47:00 Nader Casanova [facility] [address] - [place] SLCTV CATHJ 3RD+ ORD SLCTV ABDL PEL/LXTR [facility] 2024-12-23 17:47:00 Nader Casanova [facility] [address] - [place] SLCTV CATHJ EA 2ND+ ORD ABDL PEL/LXTR [facility] 2024-12-23 17:47:00 Nader Casanova [facility] [address] - [place] THROMBOLYSIS ARTERIAL INFUSION ICRA RS&I INIT [place] 2024-12-23 17:47:00 Nader Casanova [facility] [address] - [place] REVSC OPN/PRQ ILIAC ART W/STNT PLMT & ANGIOPLSTY 2024-12-23 17:47:00 Nader Casanova [facility] [address] - [place] REVSC OPN/PRQ FEM/POP W/STNT/ATHRC/ANGIOP [facility] 2024-12-23 17:47:00 Nader Casanova [facility] [address] - [place] REVSC OPN/PRQ TIB/JOSS W/STNT/ATHR/ANGIOP [facility] 2024-12-23 17:47:00 Nader Casanova [facility] HB ABO GROUPING 2024-12-23 17:12:00 Santana Du Franklyn [facility] HB ABO GROUPING 2024-12-23 17:12:00 Santana Du Franklyn [facility] HB ABO GROUPING 2024-12-23 17:12:00 Santana Du [facility] POCT GLUCOSE (AUTOMATED) 2024-12-23 17:11:00 Nader Casanova [facility] POCT GLUCOSE (AUTOMATED) 2024-12-23 17:11:00 Nader Casanova [facility] POCT GLUCOSE (AUTOMATED) 2024-12-23 17:11:00 Nader Casanova [facility] MAGNESIUM 2024-11-29 09:35:00 Thaddeus Forte [facility] BASIC METABOLIC PANEL (NA, K , CL, CO2, GLUCOSE, BUN, CREATININE, CA) 2024-11-29 09:35:00 Ovshiv [facility] CBC WITHOUT DIFF 2024-11-29 09:35:00 Oville [facility] MAGNESIUM 2024-11-28 08:50:00 Ovshiv [facility] BASIC METABOLIC PANEL (NA, K , CL, CO2, GLUCOSE, BUN, CREATININE, CA) 2024-11-28 08:50:00 Oville, [facility] CBC WITHOUT DIFF 2024-11-28 08:50:00 Oville, [facility] MAGNESIUM 2024-11-27 09:32:00 Oville, [facility] BASIC METABOLIC PANEL (NA, K , CL, CO2, GLUCOSE, BUN, CREATININE, CA) 2024-11-27 09:32:00 Oville [facility] RANDOM LEVEL 2024-11-27 09:32:00 Mae Rubio [facility] CBC WITHOUT DIFF 2024-11-27 09:32:00 Oville, [facility] MAGNESIUM 2024-11-26 10:29:00 Oville, [facility] BASIC METABOLIC PANEL (NA, K , CL, CO2, GLUCOSE, BUN, CREATININE, CA) 2024-11-26 10:29:00 Oville, [facility] CBC WITHOUT DIFF 2024-11-26 10:29:00 Oville, [facility] BASIC METABOLIC PANEL (NA, K , CL, CO2, GLUCOSE, BUN, CREATININE, CA) 2024-11-25 10:23:00 Oville, [facility] CBC WITHOUT DIFF 2024-11-25 10:23:00 Oville, [facility] BASIC METABOLIC PANEL (NA, K , CL, CO2, GLUCOSE, BUN, CREATININE, CA) 2024-11-24 10:24:00 Jairo Paz [facility] VANCOMYCIN RANDOM LEVEL 2024-11-24 10:24:00 Jairo Paz [facility] CBC WITH DIFF 2024-11-24 10:24:00 Oville, Thaddeus [facility] BASIC METABOLIC PANEL (NA, K , CL, CO2, GLUCOSE, BUN, CREATININE, CA) 2024-11-24 10:24:00 Jairo Paz [facility] VANCOMYCIN RANDOM LEVEL 2024-11-24 10:24:00 Jairo Paz [facility] CBC WITH DIFF 2024-11-24 10:24:00 Thaddeus Forte [facility] POCT GLUCOSE (AUTOMATED) 2024-11-23 15:13:00 Biju [facility] POCT GLUCOSE (AUTOMATED) 2024-11-23 15:13:00 Biju [facility] SURGICAL PATHOLOGY EXAM 2024-11-23 14:31:00 Luis Jay [facility] INTUBATION 2024-11-23 14:11:00 Parth Ocasio [facility] POCT GLUCOSE (AUTOMATED) 2024-11-23 13:21:00 Biju [facility] POCT GLUCOSE (AUTOMATED) 2024-11-23 13:21:00 Biju [facility] [id number] - [place] AMPUTATION FOOT TRANSMETARSAL 2024-11-23 13:18:00 Luis Jay [facility] [address] - [place] AMPUTATION FOOT TRANSMETARSAL 2024-11-23 13:18:00 Luis Jay [facility] MAGNESIUM 2024-11-23 09:44:00 Waylon James [facility] BASIC METABOLIC PANEL (NA, K , CL, CO2, GLUCOSE, BUN, CREATININE, CA) 2024-11-23 09:44:00 Biju [facility] CBC WITH DIFF 2024-11-23 09:44:00 Biju [facility] MAGNESIUM 2024-11-23 09:44:00 Biju [facility] BASIC METABOLIC PANEL (NA, K , CL, CO2, GLUCOSE, BUN, CREATININE, CA) 2024-11-23 09:44:00 Biju [facility] CBC WITH DIFF 2024-11-23 09:44:00 Biju [facility] BASIC METABOLIC PANEL (NA, K , CL, CO2, GLUCOSE, BUN, CREATININE, CA) 2024-11-22 22:41:00 Rakehs Roland [facility] BASIC METABOLIC PANEL (NA, K , CL, CO2, GLUCOSE, BUN, CREATININE, CA) 2024-11-22 22:41:00 Rakesh Roland [facility] BASIC METABOLIC PANEL (NA, K , CL, CO2, GLUCOSE, BUN, CREATININE, CA) 2024-11-22 14:22:00 Rakesh Roland [facility] BASIC METABOLIC PANEL (NA, K , CL, CO2, GLUCOSE, BUN, CREATININE, CA) 2024-11-22 14:22:00 Rakesh Roland [facility] BLOOD CULTURE SCREEN 2024-11-21 22:51:00 Biju [facility] MAGNESIUM 2024-11-21 22:51:00 Biju [facility] COMP. METABOLIC PANEL (26532) 2024-11-21 22:51:00 Biju [facility] CBC WITH DIFF 2024-11-21 22:51:00 Biju [facility] MRSA / MSSA SCREEN BY PCR, NARES 2024-11-21 22:51:00 Biju [facility] BLOOD CULTURE SCREEN 2024-11-21 22:51:00 Biju [facility] MAGNESIUM 2024-11-21 22:51:00 Biju [facility] COMP. METABOLIC PANEL ([id number]) 2024-11-21 22:51:00 Biju [facility] CBC WITH DIFF 2024-11-21 22:51:00 Biju [facility] MRSA / MSSA SCREEN BY PCR, NARES 2024-11-21 22:51:00 Biju [facility] LACTIC ACID WHOLE BLOOD 2024-11-21 22:50:00 Biju [facility] LACTIC ACID WHOLE BLOOD 2024-11-21 22:50:00 Biju [facility] POCT GLUCOSE (AUTOMATED) 2024-10-30 02:28:00 Nader Casanova [facility] POCT GLUCOSE (AUTOMATED) 2024-10-29 21:23:00 Nader Casanova [facility] POCT GLUCOSE (AUTOMATED) 2024-10-29 17:34:00 Nader Casanova [facility] POCT GLUCOSE (AUTOMATED) 2024-10-29 13:56:00 Nader Casanova [facility] PHOSPHORUS 2024-10-29 09:37:00 Elise Guido [facility] MAGNESIUM 2024-10-29 09:37:00 Elise Guido [facility] BASIC METABOLIC PANEL (NA, K , CL, CO2, GLUCOSE, BUN, CREATININE, CA) 2024-10-29 09:37:00 Elise Guido [facility] CBC WITH DIFF 2024-10-29 09:37:00 Elise Guido [facility] POCT GLUCOSE (AUTOMATED) 2024-10-29 02:08:00 Edilberto [facility] POCT GLUCOSE (AUTOMATED) 2024-10-28 22:52:00 Edilberto [facility] POCT GLUCOSE (AUTOMATED) 2024-10-28 17:52:00 Edilberto [facility] POCT GLUCOSE (AUTOMATED) 2024-10-28 14:25:00 Nader Casanova [facility] MAGNESIUM 2024-10-27 10:42:00 Elise Guido [facility] BASIC METABOLIC PANEL (NA, K , CL, CO2, GLUCOSE, BUN, CREATININE, CA) 2024-10-27 10:42:00 Elise Guido [facility] CBC WITHOUT DIFF 2024-10-27 10:42:00 Elise Guido [facility] CBC WITH DIFF 2024-10-26 11:29:00 Robertson Norm Palacio Ignacio [facility] PHOSPHORUS 2024-10-26 11:28:00 Robertson Norm Palacio [facility] MAGNESIUM 2024-10-26 11:28:00 Robertson Norm Palacio [facility] BASIC METABOLIC PANEL (NA, K , CL, CO2, GLUCOSE, BUN, CREATININE, CA) 2024-10-26 11:28:00 Robertson Norm Palacio [facility] PHOSPHORUS 2024-10-25 10:24:00 Robertson Norm Palacioacio [facility] MAGNESIUM 2024-10-25 10:24:00 Robertson Norm Palacioacio [facility] BASIC METABOLIC PANEL (NA, K , CL, CO2, GLUCOSE, BUN, CREATININE, CA) 2024-10-25 10:24:00 Robertson Norm Palacio [facility] CBC WITH DIFF 2024-10-25 10:24:00 Robertson Norm [facility] PHOSPHORUS 2024-10-24 11:17:00 Robertson Norm Palacio [facility] MAGNESIUM 2024-10-24 11:17:00 Robertson Norm Palacio [facility] BASIC METABOLIC PANEL (NA, K , CL, CO2, GLUCOSE, BUN, CREATININE, CA) 2024-10-24 11:17:00 Robertson Norm [facility]acio [facility] CBC WITH DIFF 2024-10-24 11:17:00 Robertson Norm [facility]acio [facility] PHOSPHORUS 2024-10-24 11:17:00 Robertson Norm [facility]acio [facility] MAGNESIUM 2024-10-24 11:17:00 Robertson Norm [facility] BASIC METABOLIC PANEL (NA, K , CL, CO2, GLUCOSE, BUN, CREATININE, CA) 2024-10-24 11:17:00 Robertson Norm [facility]acio [facility] CBC WITH DIFF 2024-10-24 11:17:00 Robertson Norm [facility] PHOSPHORUS 2024-10-23 11:08:00 Robertson Norm Palacio [facility] MAGNESIUM 2024-10-23 11:08:00 Robertson [facility] (NA, K , CL, CO2, GLUCOSE, BUN, CREATININE, CA) 2024-10-23 11:08:00 [facility]ito [facility]FF 2024-10-23 11:08:00 Robertson Callesarraga Glen [facility] PHOSPHORUS 2024-10-23 11:08:00 [facility] 2024-10-23 11:08:00 Robertson [facility] BASIC METABOLIC PANEL (NA, K , CL, CO2, GLUCOSE, BUN, CREATININE, CA) 2024-10-23 11:08:00 Robertson [facility] WITH DIFF 2024-10-23 11:08:00 Robertson Bruce Norm Carbajal [facility] POCT GLUCOSE (AUTOMATED) 2024-10-22 18:36:00 Nader Casanova [facility] POCT GLUCOSE (AUTOMATED) 2024-10-22 18:36:00 Nader Casanova [facility] SURGICAL PATHOLOGY EXAM 2024-10-22 18:09:00 Jaida [facility] FUNGUS (ROUTINE) CULTURE 2024-10-22 18:05:00 Jaida [facility] TISSUE CULTURE(AEROBIC/ANAEROBIC) 2024-10-22 18:05:00 Jaida [facility] FUNGUS (ROUTINE) CULTURE 2024-10-22 18:05:00 Jaida [facility] TISSUE CULTURE(AEROBIC/ANAEROBIC) 2024-10-22 18:05:00 Jaida [facility] [id number] - [place] DEBRIDEMENT BONE 1ST 20 SQ CM/< 2024-10-22 17:12:00 Jaida [facility] [id number] - [place] AMPUTATION TOE METATARSOPHALANGEAL JOINT 2024-10-22 17:12:00 Jaida [facility] [address] - [place] DEBRIDEMENT BONE 1ST 20 SQ CM/< 2024-10-22 17:12:00 Jaida [facility] [id number] - [place] AMPUTATION TOE METATARSOPHALANGEAL JOINT 2024-10-22 17:12:00 Jaida [facility] PHOSPHORUS 2024-10-22 10:31:00 Robertson Norm Palacio [facility] MAGNESIUM 2024-10-22 10:31:00 Robertson Norm Palacio [facility] BASIC METABOLIC PANEL (NA, K , CL, CO2, GLUCOSE, BUN, CREATININE, CA) 2024-10-22 10:31:00 Robertson Norm Palacio [facility] CBC WITH DIFF 2024-10-22 10:31:00 Robertson Norm Palacio [facility] PHOSPHORUS 2024-10-22 10:31:00 Robertson Norm Palacio [facility] MAGNESIUM 2024-10-22 10:31:00 Robertson Norm Palacio [facility] BASIC METABOLIC PANEL (NA, K , CL, CO2, GLUCOSE, BUN, CREATININE, CA) 2024-10-22 10:31:00 Robertson Norm Palacioacio [facility] CBC WITH DIFF 2024-10-22 10:31:00 [facility] 2024-10-21 10:27:00 Robertson Norm Palacio [facility] MAGNESIUM 2024-10-21 10:27:00 Robertson Norm Palacio [facility] BASIC METABOLIC PANEL (NA, K , CL, CO2, GLUCOSE, BUN, CREATININE, CA) 2024-10-21 10:27:00 Robertson Norm Palacio [facility] CBC WITH DIFF 2024-10-21 10:27:00 Robertson de Elguea [facility] 2024-10-21 10:27:00 Robertson CallesarrNorm [facility] MAGNESIUM 2024-10-21 10:27:00 Robertson [facility] BASIC METABOLIC PANEL (NA, K , CL, CO2, GLUCOSE, BUN, CREATININE, CA) 2024-10-21 10:27:00 Robertson [facility] CBC WITH DIFF 2024-10-21 10:27:00 Robertson [facility] PHOSPHORUS 2024-10-20 09:12:00 Robertson [facility] MAGNESIUM 2024-10-20 09:12:00 Robertson [facility] BASIC METABOLIC PANEL (NA, K , CL, CO2, GLUCOSE, BUN, CREATININE, CA) 2024-10-20 09:12:00 [facility] CBC WITH DIFF 2024-10-20 09:12:00 Robertson [facility] PHOSPHORUS 2024-10-20 09:12:00 Robertson [facility] MAGNESIUM 2024-10-20 09:12:00 Robertson Bruce Norm Carbajal [facility] BASIC METABOLIC PANEL (NA, K , CL, CO2, GLUCOSE, BUN, CREATININE, CA) 2024-10-20 09:12:00 Robertson Chatmanarmindajose Norm Carbajal [facility] CBC WITH DIFF 2024-10-20 09:12:00 Robertson CallesNorm goldberg [facility] MAGNESIUM 2024-10-19 11:16:00 Osmin Pina [facility] BASIC METABOLIC PANEL (NA, K , CL, CO2, GLUCOSE, BUN, CREATININE, CA) 2024-10-19 11:16:00 Yovani Osmin [facility] VANCOMYCIN RANDOM LEVEL 2024-10-19 11:16:00 Elise Guido [facility] CBC WITHOUT DIFF 2024-10-19 11:16:00 Mariotucker [facility] HAV ANTIBODY (IGG AND IGM) 2024-10-19 11:16:00 Elda Jones [facility] MAGNESIUM 2024-10-19 11:16:00 Yovani [facility] BASIC METABOLIC PANEL (NA, K , CL, CO2, GLUCOSE, BUN, CREATININE, CA) 2024-10-19 11:16:00 Yovani [facility] VANCOMYCIN RANDOM LEVEL 2024-10-19 11:16:00 Elise Guido [facility] CBC WITHOUT DIFF 2024-10-19 11:16:00 Yovani [facility] HAV ANTIBODY (IGG AND IGM) 2024-10-19 11:16:00 Elda Jones [facility] US ABDOMEN LIMITED WITH DOPPLER 2024-10-18 22:49:[address] [facility] US ABDOMEN LIMITED WITH DOPPLER 2024-10-18 22:49:39 Edgardo Tatum [facility] MITOCHONDRIAL M2 AB, IGG 2024-10-18 16:55:00 Elise Guido [facility] MITOCHONDRIAL M2 AB, IGG 2024-10-18 16:55:00 Elise Guido [facility] LOWER EXTREMITY PSEUDOANEURYSM DUPLEX LEFT - BY VASCULAR LAB 2024-10-18 15:40:00 [facility] LOWER EXTREMITY PSEUDOANEURYSM DUPLEX LEFT - BY VASCULAR LAB 2024-10-18 15:40:00 [facility] PHOSPHORUS 2024-10-18 07:20:00 [facility] GAMMA GLUTAMYLTRANSFERASE 2024-10-18 07:20:00 Yovani Osmin [facility] MAGNESIUM 2024-10-18 07:20:00 [facility] TRANSFERRIN 2024-10-18 07:20:00 Yovani Osmin [facility] CERULOPLASMIN 2024-10-18 07:20:00 Yovani Osmin [facility] ALPHA 1 ANTITRYPSIN 2024-10-18 07:20:00 Yovani Osmin [facility] BASIC METABOLIC PANEL (NA, K , CL, CO2, GLUCOSE, BUN, CREATININE, CA) 2024-10-18 07:20:00 [facility] ALPHA FETOPROTEIN 2024-10-18 07:20:00 Yovani Osmin [facility] CBC WITH DIFF 2024-10-18 07:20:00 [facility] PHOSPHORUS 2024-10-18 07:20:00 [facility] GAMMA GLUTAMYLTRANSFERASE 2024-10-18 07:20:00 Yovani Osmin [facility] MAGNESIUM 2024-10-18 07:20:00 [facility] TRANSFERRIN 2024-10-18 07:20:00 Yovani Osmin [facility] CERULOPLASMIN 2024-10-18 07:20:00 Yovani Osmin [facility] ALPHA 1 ANTITRYPSIN 2024-10-18 07:20:00 Yovani Osmin [facility] BASIC METABOLIC PANEL (NA, K , CL, CO2, GLUCOSE, BUN, CREATININE, CA) 2024-10-18 07:20:00 [facility] ALPHA FETOPROTEIN 2024-10-18 07:20:00 Yovani Osmin [facility] CBC WITH DIFF 2024-10-18 07:20:00 [facility] PHOSPHORUS 2024-10-18 07:20:00 [facility] GAMMA GLUTAMYLTRANSFERASE 2024-10-18 07:20:00 Osmin Pina [facility] MAGNESIUM 2024-10-18 07:20:00 Jeffery [facility] [facility] TRANSFERRIN 2024-10-18 07:20:00 Yovani Osmin [facility] CERULOPLASMIN 2024-10-18 07:20:00 Yovani Osmin [facility] ALPHA 1 ANTITRYPSIN 2024-10-18 07:20:00 Yovani Osmin [facility] BASIC METABOLIC PANEL (NA, K , CL, CO2, GLUCOSE, BUN, CREATININE, CA) 2024-10-18 07:20:00 [facility] ALPHA FETOPROTEIN 2024-10-18 07:20:00 Yovani Osmin [facility] CBC WITH DIFF 2024-10-18 07:20:00 [facility] ANTI-NUCLEAR ANTIBODY SCREEN 2024-10-18 07:20:00 Yovani Osmin [facility] HEPATITIS B SURFACE ANTIBODY 2024-10-18 07:20:00 [facility] HEPATITIS B CORE ANTIBODY IGM 2024-10-18 07:20:00 [facility] SMOOTH MUSCLE AB,IGG W/REFLEX 2024-10-18 07:20:00 Yovani Osmin [facility] ANTI-NUCLEAR ANTIBODY TITER 2024-10-18 07:20:00 Yovani Osmin [facility] PHOSPHORUS 2024-10-18 07:20:00 [facility] GAMMA GLUTAMYLTRANSFERASE 2024-10-18 07:20:00 Yovani Osmin [facility] MAGNESIUM 2024-10-18 07:20:00 [facility] TRANSFERRIN 2024-10-18 07:20:00 Osmin Pina [facility] CERULOPLASMIN 2024-10-18 07:20:00 Osmin Pina [facility] ALPHA 1 ANTITRYPSIN 2024-10-18 07:20:00 Osmin Pina [facility] BASIC METABOLIC PANEL (NA, K , CL, CO2, GLUCOSE, BUN, CREATININE, CA) 2024-10-18 07:20:00 [facility] ALPHA FETOPROTEIN 2024-10-18 07:20:00 Osmin Pina [facility] CBC WITH DIFF 2024-10-18 07:20:00 [facility] ANTI-NUCLEAR ANTIBODY SCREEN 2024-10-18 07:20:00 Yovani Osmin [facility] HEPATITIS B SURFACE ANTIBODY 2024-10-18 07:20:00 [facility] HEPATITIS B CORE ANTIBODY IGM 2024-10-18 07:20:00 [facility] SMOOTH MUSCLE AB,IGG W/REFLEX 2024-10-18 07:20:00 Yovani Osmin [facility] ANTI-NUCLEAR ANTIBODY TITER 2024-10-18 07:20:00 Yovani Osmin [facility] CBC WITHOUT DIFF 2024-10-17 18:30:00 [facility] CBC WITHOUT DIFF 2024-10-17 18:30:00 [facility] CBC WITHOUT DIFF 2024-10-17 18:30:00 [facility] CBC WITHOUT DIFF 2024-10-17 18:30:00 [facility] PHOSPHORUS 2024-10-17 10:16:00 [facility] MAGNESIUM 2024-10-17 10:16:00 [facility] BASIC METABOLIC PANEL (NA, K , CL, CO2, GLUCOSE, BUN, CREATININE, CA) 2024-10-17 10:16:00 [facility] CBC WITH DIFF 2024-10-17 10:16:00 [facility] PHOSPHORUS 2024-10-17 10:16:00 [facility] MAGNESIUM 2024-10-17 10:16:00 [facility] BASIC METABOLIC PANEL (NA, K , CL, CO2, GLUCOSE, BUN, CREATININE, CA) 2024-10-17 10:16:00 [facility] CBC WITH DIFF 2024-10-17 10:16:00 [facility] PHOSPHORUS 2024-10-17 10:16:00 [facility] MAGNESIUM 2024-10-17 10:16:00 [facility] BASIC METABOLIC PANEL (NA, K , CL, CO2, GLUCOSE, BUN, CREATININE, CA) 2024-10-17 10:16:00 [facility] CBC WITH DIFF 2024-10-17 10:16:00 [facility] PHOSPHORUS 2024-10-17 10:16:00 [facility] MAGNESIUM 2024-10-17 10:16:00 [facility] BASIC METABOLIC PANEL (NA, K , CL, CO2, GLUCOSE, BUN, CREATININE, CA) 2024-10-17 10:16:00 [facility] CBC WITH DIFF 2024-10-17 10:16:00 [facility] POCT GLUCOSE (AUTOMATED) 2024-10-16 16:51:00 Nader Casanova [facility] POCT GLUCOSE (AUTOMATED) 2024-10-16 16:51:00 Nader Casanova [facility] POCT GLUCOSE (AUTOMATED) 2024-10-16 16:51:00 Nader Casanova [facility] POCT GLUCOSE (AUTOMATED) 2024-10-16 16:51:00 Nader Casanova [facility] FL TIME OR (NON-REPORTABLE) 2024-10-16 16:22:00 [facility] (NON-RE[facility]) 2024-10-16 16:22:00 [facility] FL TIME OR (NON-REPORTABLE) 2024-10-16 16:22:00 [facility] FL TIME OR (NON-REPORTABLE) 2024-10-16 16:22:00 [facility] TISSUE CULTURE(AEROBIC/ANAEROBIC) 2024-10-16 16:09:00 [facility] FUNGUS (ROUTINE) CULTURE 2024-10-16 16:09:00 [facility] TISSUE CULTURE(AEROBIC/ANAEROBIC) 2024-10-16 16:09:00 [facility] FUNGUS (ROUTINE) CULTURE 2024-10-16 16:09:00 [facility] FUNGUS (ROUTINE) CULTURE 2024-10-16 16:09:00 [facility] TISSUE CULTURE(AEROBIC/ANAEROBIC) 2024-10-16 16:09:00 [facility] FUNGUS (ROUTINE) CULTURE 2024-10-16 16:09:00 [facility] TISSUE CULTURE(AEROBIC/ANAEROBIC) 2024-10-16 16:09:00 [facility] SURGICAL PATHOLOGY EXAM 2024-10-16 16:01:00 [facility] [id number] - CHG ANGIOGRAPHY EXTREMITY BILATERAL RS&I 2024-10-16 12:57:00 [facility] [id number] - [place] AMPUTATION TOE INTERPHALANGEAL JOINT 2024-10-16 12:57:00 [facility] [id number] - CHG ANGIOGRAPHY EXTREMITY BILATERAL RS&I 2024-10-16 12:57:00 [facility] [id number] - [place] AMPUTATION TOE INTERPHALANGEAL JOINT 2024-10-16 12:57:00 [facility] US ELASTOGRAPHY BASE FUNCT 2024-10-16 12:23:00 Lambert Mosqueda [facility] US ELASTOGRAPHY BASE FUNCT 2024-10-16 12:23:00 Lambert Mosqueda [facility] US ELASTOGRAPHY BASE FUNCT 2024-10-16 12:23:00 Lambert Mosqueda [facility] US ELASTOGRAPHY BASE FUNCT 2024-10-16 12:23:00 Lambert Mosqueda [facility] PHOSPHORUS 2024-10-16 09:46:00 [facility] MAGNESIUM 2024-10-16 09:46:00 [facility] BASIC METABOLIC PANEL (NA, K , CL, CO2, GLUCOSE, BUN, CREATININE, CA) 2024-10-16 09:46:00 [facility] 2024-10-16 09:46:00 Angeles Dean [facility] CBC WITH DIFF 2024-10-16 09:46:00 [facility] PHOSPHORUS 2024-10-16 09:46:00 [facility] MAGNESIUM 2024-10-16 09:46:00 [facility] BASIC METABOLIC PANEL (NA, K , CL, CO2, GLUCOSE, BUN, CREATININE, CA) 2024-10-16 09:46:00 Kim Rodriguezberley [facility] VANCOMYCIN RANDOM LEVEL 2024-10-16 09:46:00 Angeles Dean [facility] CBC WITH DIFF 2024-10-16 09:46:00 [facility] PHOSPHORUS 2024-10-16 09:46:00 [facility] MAGNESIUM 2024-10-16 09:46:00 [facility] BASIC METABOLIC PANEL (NA, K , CL, CO2, GLUCOSE, BUN, CREATININE, CA) 2024-10-16 09:46:00 [facility] VANCOMYCIN RANDOM LEVEL 2024-10-16 09:46:00 Angeles Dean [facility] CBC WITH DIFF 2024-10-16 09:46:00 [facility] PHOSPHORUS 2024-10-16 09:46:00 [facility] MAGNESIUM 2024-10-16 09:46:00 [facility] BASIC METABOLIC PANEL (NA, K , CL, CO2, GLUCOSE, BUN, CREATININE, CA) 2024-10-16 09:46:00 [facility] VANCOMYCIN RANDOM LEVEL 2024-10-16 09:46:00 Angeles Dean [facility] CBC WITH DIFF 2024-10-16 09:46:00 [facility] HB INDIRECT ANTIGLOBULIN TEST 2024-10-16 00:36:00 Jesus Thakkar [facility] HB INDIRECT ANTIGLOBULIN TEST 2024-10-16 00:36:00 Bijan [facility] HB INDIRECT ANTIGLOBULIN TEST 2024-10-16 00:36:00 Bijan [facility] HB INDIRECT ANTIGLOBULIN TEST 2024-10-16 00:36:00 Jesus Thakkar [facility] IRON PANEL 2024-10-15 21:42:00 Lambert Mosqueda [facility] IRON PANEL 2024-10-15 21:42:00 Lambert Mosqueda [facility] IRON PANEL 2024-10-15 21:42:00 Lambert Mosqueda [facility] IRON PANEL 2024-10-15 21:42:00 Lambert Mosqueda [facility] POCT GLUCOSE (AUTOMATED) 2024-10-15 17:46:00 Nader Casanova [facility] POCT GLUCOSE (AUTOMATED) 2024-10-15 17:46:00 Nader Casanova [facility] POCT GLUCOSE (AUTOMATED) 2024-10-15 17:46:00 Nader Casanova [facility] POCT GLUCOSE (AUTOMATED) 2024-10-15 17:46:00 Nader Casanova [facility] POCT GLUCOSE (AUTOMATED) 2024-10-15 15:04:00 Nader Casanova [facility] POCT GLUCOSE (AUTOMATED) 2024-10-15 15:04:00 Nader Casanova [facility] POCT GLUCOSE (AUTOMATED) 2024-10-15 15:04:00 Nader Casanova [facility] POCT GLUCOSE (AUTOMATED) 2024-10-15 15:04:00 Nader Casanova [facility] MAGNESIUM 2024-10-15 10:40:00 Jairo Paz [facility] FERRITIN SERUM 2024-10-15 10:40:00 Lambert Mosqueda [facility] VITAMIN B12, LEVEL 2024-10-15 10:40:00 Lambert Mosqueda [facility] FOLATE 2024-10-15 10:40:00 Lambert Mosqueda [facility] THYROID STIMULATING HORMONE 2024-10-15 10:40:00 Lambert Mosqueda [facility] LIPID PANEL ([id number])(TOTAL CHOLESTEROL, TRIGLYCERIDES, HDL) 2024-10-15 10:40:00 Jairo Paz [facility] CBC WITH DIFF 2024-10-15 10:40:00 Jairo Paz [facility] MAGNESIUM 2024-10-15 10:40:00 Jairo Paz [facility] FERRITIN SERUM 2024-10-15 10:40:00 Lambert Mosqueda [facility] VITAMIN B12, LEVEL 2024-10-15 10:40:00 Lambert Mosqueda [facility] FOLATE 2024-10-15 10:40:00 Lambert Mosqueda [facility] THYROID STIMULATING HORMONE 2024-10-15 10:40:00 Lambert Mosqueda [facility] LIPID PANEL ([id number])(TOTAL CHOLESTEROL, TRIGLYCERIDES, HDL) 2024-10-15 10:40:00 Jairo Paz [facility] CBC WITH DIFF 2024-10-15 10:40:00 Jairo Paz [facility] MAGNESIUM 2024-10-15 10:40:00 Jairo Paz [facility] FERRITIN SERUM 2024-10-15 10:40:00 Lambert Mosqueda [facility] VITAMIN B12, LEVEL 2024-10-15 10:40:00 Lambert Mosqueda [facility] FOLATE 2024-10-15 10:40:00 Lambert Mosqueda [facility] THYROID STIMULATING HORMONE 2024-10-15 10:40:00 Lambert Mosqueda [facility] LIPID PANEL ([id number])(TOTAL CHOLESTEROL, TRIGLYCERIDES, HDL) 2024-10-15 10:40:00 Jairo Paz [facility] CBC WITH DIFF 2024-10-15 10:40:00 Jairo Paz [facility] MAGNESIUM 2024-10-15 10:40:00 Jairo Pza [facility] FERRITIN SERUM 2024-10-15 10:40:00 Lambert Mosqueda [facility] VITAMIN B12, LEVEL 2024-10-15 10:40:00 Lambert Mosqueda [facility] FOLATE 2024-10-15 10:40:00 Lambert Mosqueda [facility] THYROID STIMULATING HORMONE 2024-10-15 10:40:00 Lambert Mosqueda [facility] LIPID PANEL ([id number])(TOTAL CHOLESTEROL, TRIGLYCERIDES, HDL) 2024-10-15 10:40:00 Jairo Paz [facility] CBC WITH DIFF 2024-10-15 10:40:00 Jairo Paz [facility] COMP. METABOLIC PANEL ([id number]) 2024-10-15 06:23:00 Jairo Paz [facility] COMP. METABOLIC PANEL ([id number]) 2024-10-15 06:23:00 Jairo Paz [facility] COMP. METABOLIC PANEL (28178) 2024-10-15 06:23:00 Jairo Paz [facility] COMP. METABOLIC PANEL ([id number]) 2024-10-15 06:23:00 Jairo Paz [facility] FL TIME OR (NON-REPORTABLE) 2024-10-14 22:12:59 Celestine Hadley [facility] FL TIME OR (NON-REPORTABLE) 2024-10-14 22:12:59 Celestine Hadley [facility] FL TIME OR (NON-REPORTABLE) 2024-10-14 22:12:59 Celestine Hadley [facility] FL TIME OR (NON-REPORTABLE) 2024-10-14 22:12:59 Celestine Hadley [facility] ANGIOGRAM VIA LOWER EXTREMIT Y ACCESS 2024-10-14 16:51:00 Nader Casanova [facility] ANGIOGRAM VIA LOWER EXTREMIT Y ACCESS 2024-10-14 16:51:00 Nader Casanova [facility] PROTHROMBIN TIME / INR 2024-10-14 10:33:00 Jairo Paz. [facility] ACTIVATED PARTIAL THRMPLAS KATIE 2024-10-14 10:33:00 Jairo Paz. [facility] PROTHROMBIN TIME / INR 2024-10-14 10:33:00 Jairo Paz. [facility] ACTIVATED PARTIAL THRMPLAS KATIE 2024-10-14 10:33:00 Jairo Paz [facility] PROTHROMBIN TIME / INR 2024-10-14 10:33:00 Jairo Paz [facility] ACTIVATED PARTIAL THRMPLAS KATIE 2024-10-14 10:33:00 Jairo Paz [facility] PROTHROMBIN TIME / INR 2024-10-14 10:33:00 Jairo Paz [facility] ACTIVATED PARTIAL THRMPLAS KATIE 2024-10-14 10:33:00 Jairo Paz [facility] LOWER EXTREMITY ARTERIAL DUPLEX BILATERAL - BY VASCULAR LAB 2024-10-13 21:39:00 Waylon James [facility] LOWER EXTREMITY ARTERIAL DUPLEX BILATERAL - BY VASCULAR LAB 2024-10-13 21:39:00 Biju Waylon [facility] LOWER EXTREMITY ARTERIAL DUPLEX BILATERAL - BY VASCULAR LAB 2024-10-13 21:39:00 Biju Waylon [facility] LOWER EXTREMITY ARTERIAL DUPLEX BILATERAL - BY VASCULAR LAB 2024-10-13 21:39:00 Biju Waylon [facility] XR FOOT 3+ VW RIGHT 2024-10-13 19:19:00 Miriam Hill [facility] XR FOOT 3+ VW RIGHT 2024-10-13 19:19:00 Miriam Hill [facility] XR FOOT 3+ VW RIGHT 2024-10-13 19:19:00 Miriam Hill [facility] XR FOOT 3+ VW RIGHT 2024-10-13 19:19:00 Miriam Hill [facility] CREATINE KINASE 2024-10-13 18:58:00 Jairo Paz [facility] COMP. METABOLIC PANEL ([id number]) 2024-10-13 18:58:00 Miriam Hill [facility] SEDIMENTATION RATE 2024-10-13 18:58:00 Miriam Hill [facility] CBC WITH DIFF 2024-10-13 18:58:00 Miriam Hill [facility] GLYCOSYLATED HEMOGLOBIN (A1C) 2024-10-13 18:58:00 Celestine Hadley [facility] CREATINE KINASE 2024-10-13 18:58:00 Jairo Paz [facility] COMP. METABOLIC PANEL ([id number]) 2024-10-13 18:58:00 Miriam Hill [facility] SEDIMENTATION RATE 2024-10-13 18:58:00 Miriam Hill [facility] CBC WITH DIFF 2024-10-13 18:58:00 Miriam Hill [facility] GLYCOSYLATED HEMOGLOBIN (A1C) 2024-10-13 18:58:00 Celestine Hadley [facility] CREATINE KINASE 2024-10-13 18:58:00 Jairo Paz [facility] COMP. METABOLIC PANEL ([id number]) 2024-10-13 18:58:00 Miriam Hill [facility] SEDIMENTATION RATE 2024-10-13 18:58:00 Miriam Hill [facility] CBC WITH DIFF 2024-10-13 18:58:00 Miriam Hill [facility] GLYCOSYLATED HEMOGLOBIN (A1C) 2024-10-13 18:58:00 Celestine Hadley [facility] CREATINE KINASE 2024-10-13 18:58:00 Jairo Paz [facility] COMP. METABOLIC PANEL ([id number]) 2024-10-13 18:58:00 Miriam Hill [facility] SEDIMENTATION RATE 2024-10-13 18:58:00 Miriam Hill [facility] CBC WITH DIFF 2024-10-13 18:58:00 Miriam Hill [facility] GLYCOSYLATED HEMOGLOBIN (A1C) 2024-10-13 18:58:00 Celestine Hadley [facility] POCT GLUCOSE (AUTOMATED) 2024-10-13 18:51:00 Miriam Hill [facility] POCT GLUCOSE (AUTOMATED) 2024-10-13 18:51:00 Miriam Hill [facility] POCT GLUCOSE (AUTOMATED) 2024-10-13 18:51:00 Miriam Hill [facility] POCT GLUCOSE (AUTOMATED) 2024-10-13 18:51:00 Miriam Hill [facility] INFLUENZA A/B RSV COVID NAAT 2024-09-25 01:40:00 Gerson Rausch [facility] URIC ACID 2024-09-20 07:27:00 Dilip Whitt [facility] BASIC METABOLIC PANEL (NA, K , CL, CO2, GLUCOSE, BUN, CREATININE, CA) 2024-09-20 07:27:00 Dilip Whitt [facility] CBC WITH DIFF 2024-09-20 07:27:00 Dilip Whitt [facility] XR FOOT 3+ VW RIGHT 2024-09-20 07:22:47 Dilip Whitt [facility] XR CHEST 2 VW 2024-09-06 16:52:08 Mars Laguna [facility] XR RIBS 3 VW LEFT 2024-09-06 16:52:08 Mars Laguna [facility] TROPONIN I 2024-09-06 15:49:00 Mars Laguna [facility] BASIC METABOLIC PANEL (NA, K , CL, CO2, GLUCOSE, BUN, CREATININE, CA) 2024-09-06 15:49:00 [facility] CBC WITH DIFF 2024-09-06 15:49:00 [facility] URINALYSIS 2024-09-06 15:49:00 [facility] RAPID STREP SCREEN FOR GROUP A 2024-09-06 15:49:00 [facility] INFLUENZA A/B RSV COVID NAAT 2024-09-06 15:49:00 [facility] KARSON,POST-VOID RES,US,NON-IMAGING 2024-07-25 21:40:00 Isidoro [facility] POCT URINALYSIS AUTO 2024-07-25 00:00:00 Isidoro [facility] URINALYSIS MICROSCOPIC 2024-06-06 20:37:00 Isidoro [facility] URINE CULTURE 2024-06-06 20:37:00 Isidoro [facility] KARSON,POST-VOID RES,US,NON-IMAGING 2024-06-06 00:00:00 Isidoro [facility] POCT URINALYSIS AUTO 2024-06-06 00:00:00 [facility] 2024-06-01 18:42:41 Doctor Unassigned, [place] [facility] DME/SUPPLY JUSTIFICATION 2024-05-25 15:27:14 Doctor Unassigned, [place] [facility] KARSON,POST-VOID RES,US,NON-IMAGING 2024-05-06 22:17:00 Vidya [facility] POCT URINALYSIS AUTO 2024-05-06 21:00:00 Vidya [facility] POCT URINALYSIS W/O SPECIFIC GRAVITY 2024-04-14 00:00:00 Mili Schwartz [facility] REFERRAL- REQUEST/RESPONSE 2023-10-07 06:01:00 Doctor Unassigned, [place] [facility] [id number] Ekg W/ At Least 12 Leads W/ I r 2023-08-10 00:00:00 William Quinones URINALYSIS MICROSCOPIC 2023-06-17 22:12:00 Mars Avilez [facility] URINE CULTURE 2023-06-17 22:12[facility] 2023-06-17 21:55:00 Soledad Avileztney [facility] REFERRAL- REQUEST/RESPONSE 2023-03-18 05:01:00 Doctor Unassigned, [place] [facility] COMP. METABOLIC PANEL ([id number]) 2023-03-10 20:34:00 Ann Henriquez [facility] CBC WITH DIFF 2023-03-10 20:34:00 Ann Henriquez [facility] ASSIGNMENT OF BENEFITS 2023-03-10 20:10:08 Doctor Unassigned, [place] [facility] CONSENT/REFUSAL FOR DIAGNOSI S AND TREATMENT 2023-03-10 19:21:55 Doctor Unassigned, [place] [facility] POCT URINALYSIS AUTO 2023-02-11 19:46:00 [facility] 2023-02-11 19:45:00 [facility] AUTO 2023-02-11 00:00:00 [facility]REFUSAL FOR DIAGNOSI S AND TREATMENT 2023-01-14 18:41:39 Doctor Unassigned, [place] [facility] POCT URINALYSIS AUTO 2022-08-28 20:58:00 Ella Fallon [facility] URINALYSIS 2022-07-23 13:23:00 Manuela Huff [facility] RAPID INFLUENZA A/B 2022-07-23 13:23:00 Manuela Huff [facility] INSURANCE CORRESPONDENCE 2022-05-30 05:01:00 Doctor Unassigned, [place] [facility] INSURANCE CORRESPONDENCE 2022-04-29 05:01:00 Doctor Unassigned, [place] [facility] KNEE, 2 VIEWS 2018-02-16 19:09:00 Parth Ibarra [facility] CBC WITH DIFFERENTIAL/PLATELET-LC 2017-10-28 18:40:00 Nieves [facility] COMP. METABOLIC PANEL (14)-LC 2017-10-28 18:40:00 Nieves [facility] URINALYSIS, ROUTINE-LC 2017-10-28 18:40:00 Nieves [facility] PROTEIN ELECTRO.,S-LC 2017-10-28 18:40:00 Nieves [facility] COMPLEMENT C4, SERUM-LC 2017-10-28 18:40:00 Nieves, [facility] COMPLEMENT C3, SERUM-LC 2017-10-28 18:40:00 Nieves [facility] C-REACTIVE PROTEIN, QUANT-LC 2017-10-28 18:40:00 Nieves [facility] ANTI-DSDNA ANTIBODIES-LC 2017-10-28 18:40:00 Nieves [facility] PROTEIN ELECTRO, RANDOM URINE-LC 2017-10-28 18:40:00 Nieves [facility] CREATINE KINASE,TOTAL,SERUM-LC 2017-10-28 18:40:00 Nieves [facility] G-6-PD, QUANT, BLOOD AND RBC-LC 2017-10-28 18:40:00 Nieves [facility] ALDOLASE-LC 2017-10-28 18:40:00 Nieves [facility] ANTIEXTRACTABLE NUCLEAR AG-LC 2017-10-28 18:40:00 Nieves [facility] SJOGREN'S AB, ANTI-SS-A/-SS-B-LC 2017-10-28 18:40:00 Nieves [facility] ANTI-CENTROMERE B ANTIBODIES-LC 2017-10-28 18:40:00 [facility]YL[facility]SFER[facility]- 2017-10-28 18:40:00 Nieves [facility] ANTICHROMATIN ANTIBODIES-LC 2017-10-28 18:40:00 Nieves [facility] HAND, 3 VIEWS AND MORE 2017-01-28 16:51:00 Nieves [facility] KNEE, 3 VIEWS 2017-01-28 16:51:00 Nieves [facility] FOOT, COMPLETE MIN. 3 VIEWS 2017-01-28 16:51:00 Nieves, [facility] FOOT, COMPLETE MIN. 3 VIEWS 2017-01-28 16:51:00 Nieves [facility] ABO GROUPING AND RHO(D) TYPING- 2017-01-28 05:00:00 Nieves [facility] HBSAG SCREEN- 2017-01-28 05:00:00 Nieves [facility] WRITTEN AUTHORIZATION- 2017-01-28 05:00:00 Nieves [facility] HEP B SURFACE AB- 2017-01-28 05:00:00 Nieves [facility] SEDIMENTATION [id number] 2017-01-28 05:00:00 Nieves [facility] CREATININE, SERUM- 2017-01-28 05:00:00 Nieves [facility] RHEUMATOID ARTHRITIS FACTOR- 2017-01-28 05:00:00 Nieves [facility] C-REACTIVE PROTEIN, QUANT- 2017-01-28 05:00:00 Nieves [facility] [id number]- 2017-01-28 05:00:00 Nieves [facility] IMMUNOFIXATION, SERUM- 2017-01-28 05:00:00 Nieves [facility] ANTISCLERODERMA-70 ANTIBODIES- 2017-01-28 05:00:00 Nieves [facility] CCP ANTIBODIES IGG/IGA- 2017-01-28 05:00:00 Ludmila Thompson [facility] QUANTIFERON TB GOLD (IN TUBE)- 2017-01-28 05:00:00 Ludmila Thompson [facility] QUANTIFERON IN TUBE- 2017-01-28 05:00:00 Ludmila Thompson [facility] ONE SPECIMEN IDENTIFIER- 2017-01-28 05:00:00 Ludmila Thompson [facility] COMMENT:- 2017-01-28 05:00:00 Ludmila Thompson [facility] HCV AB W/RFLX TO VERIFICATION- 2017-01-28 05:00:00 Ludmila Thompson [facility] AMBIGUOUS TEST ORDER- 2017-01-28 05:00[id number] 2017-01-28 05:00[facility]00 [facility] Planned Activity Planned Date Details Comments Source Goal Plan of Care Note [code = 29877-8] Goal Plan of Care Note [code = 06462-2] Goal Plan of Care Note [code = 80912-7] Goal Plan of Care Note [code = 74087-5] Goal Plan of Care Note [code = 02133-5] Goal Plan of Care Note [code = 03935-9] Goal Plan of Care Note [code = 63956-9] Goal Plan of Care Note [code = 87788-1] Goal Plan of Care Note [code = 75323-4] Goal Plan of Care Note [code = 18679-9] Goal Plan of Care Note [code = 50157-2] Goal Plan of Care Note [code = 33387-6] Goal Plan of Care Note [code = 23259-2] Goal Plan of Care Note [code = 89581-2] Goal Plan of Care Note [code = 58338-9] Goal Plan of Care Note [code = 94403-9] Goal Plan of Care Note [code = 72777-9] Goal Plan of Care Note [code = 19235-9] Goal Plan of Care Note [code = 64966-6] Goal Plan of Care Note [code = 23595-6] Goal Plan of Care Note [code = 17537-4] Goal Plan of Care Note [code = 18653-5] Goal Plan of Care Note [code = 99053-3] Goal Plan of Care Note [code = 13025-7] Goal Plan of Care Note [code = 69156-8] Goal Plan of Care Note [code = 14484-7] Goal Plan of Care Note [code = 48955-5] Encounters Start Date/Time End Date/Time Encounter Type Admission Type Attending [facility] Facility Care Department Encounter ID Source 2024-09-02 20:13:19 Outpatient WAYLON CARCAMO [facility] S[facility] [id number] [facility] 2025-01-23 13:15:00 2025-01-23 13:15:00 Outpatient NADER VASQUEZ [facility] [id number] [facility] 2025-01-17 00:00:00 2025-01-18 08:11:19 Telephone Nader Casanova [facility] ..840.114 350.1.13.10 4.2.7.2.686 [id number] [facility] 2025-01-16 16:30:00 2025-01-16 16:30:[address]DA [address]ARKEY [facility] [id number] [facility] 2025-01-12 00:00:00 2025-01-12 12:11:37 Transition of Care Davonte Oseguera [facility] ..840.114 350.1.13.10 4.2.7.2.686 [id number] [facility] 2024-12-23 11:40:00 2025-01-11 20:02:00 Inpatient NADER VASQUEZ [facility] [id number] [facility] 2024-12-23 11:40:00 2025-01-11 20:02:00 Hospital Encounter Nader Casanova [facility] [place] [facility] 09.29.840.114 350.1.13.10 4.2.7.2.686 [id number] [facility] 2025-01-09 15:30:00 2025-01-09 15:30:00 Outpatient R NADER CASANOVA [facility] [id number] [facility] 2025-01-06 06:40:00 2025-01-06 09:08:00 Surgery Nader Casanova [facility] 1.2.840.114 350.1.13.10 4.2.7.2.686 [id number] [facility] 2024-12-28 00:00:00 2024-12-30 02:05:09 Orders Only Doctor Unassigned, Neffs Doctor Unassigned, Neffs [facility] ([place] 1.2.840.114 350.1.13.10 4.2.7.2.686 [id number] [id number] [facility] 2024-12-28 00:00:00 2024-12-30 02:05:08 Orders Only Doctor Unassigned, Neffs Doctor Unassigned, Neffs [facility] ([place] 1.2.840.114 350.1.13.10 4.2.7.2.686 [id number] [facility] 2024-12-28 11:20:00 2024-12-28 11:20:00 Outpatient R OBI-SIENA , JORDI OBI-SIENA , JORDI [facility] [id number] [facility] 2024-12-26 00:00:00 2024-12-27 02:04:12 Orders Only Doctor Unassigned, Neffs Doctor Unassigned, Neffs [facility] ([place] 1.2.840.114 350.1.13.10 4.2.7.2.686 [id number] [facility] 2024-12-23 12:58:00 2024-12-23 15:36:00 Surgery Nader Casanova [facility] ([facility] 1.2.840.114 350.1.13.10 4.2.7.2.686 [id number] [facility] [id number] [facility] 2024-12-22 13:00:00 2024-12-22 13:00:00 Outpatient R HENRRY DOMINGUEZ [facility] [id number] [facility] 2024-12-20 11:30:00 2024-12-20 11:30:[address] [facility] [id number] [facility] 2024-12-20 00:00:00 2024-12-20 09:24:00 Telephone Edilberto Nader [facility] 1.2.840.114 350.1.13.10 4.2.7.2.686 [id number] [facility] 2024-12-19 00:00:00 2024-12-19 15:22:01 Telephone [facility]ien[facility] 1.2.840.114 350.1.13.10 4.2.7.2.686 [id number] [id number] [facility] 2024-12-19 13:15:00 2024-12-19 14:22:13 Outpatient R NADER CASANOVA [facility] [id number] [facility] 2024-12-19 13:15:00 2024-12-19 14:22:13 Office Visit Nader Casanova [facility] N[facility] 1.2.840.114 350.1.13.10 4.2.7.2.686 [id number] [facility] 2024-12-14 00:00:00 2024-12-18 14:07:14 [facility] 1.2.840.114 350.1.13.10 4.2.7.2.686 [id number] [facility] 2024-12-16 09:00:00 2024-12-16 09:00:00 Outpatient R MENDEZ VARGAS MENDEZ [facility] [id number] [facility] 2024-12-07 15:00:00 2024-12-07 15:17:42 Outpatient R OBI-SIENA , JORDI OBI-SIENA , JORDI [facility] [id number] [facility] 2024-12-05 15:15:00 2024-12-05 16:52:26 Outpatient R NADER CASANOVA [facility] [id number] [facility] 2024-11-30 00:00:00 2024-11-30 11:44:43 Transition of Care Davonte Oseguera Michele A [address] ..840.114 350.1.13.10 4.2.7.2.686 [id number] [facility] 2024-11-21 16:03:00 2024-11-29 17:15:00 Inpatient O WAYLON JAMES [facility] [id number] [facility] 2024-11-21 16:03:00 2024-11-29 17:15:00 Hospital Encounter Waylon James [facility] ..840.114 350.1.13.10 4.2.7.2.686 [id number] [facility] 2024-11-23 07:25:00 2024-11-23 09:38:00 Surgery Luis Jay [facility] ..840.114 350.1.13.10 4.2.7.2.686 [id number] [facility] 2024-11-23 07:53:00 2024-11-23 08:52:00 Anesthesia Event Deo Johnson Edgar [facility] 1.2.840.114 350.1.13.10 4.2.7.2.686 [id number] [facility] 2024-11-22 17:33:03 2024-11-22 17:33:03 Outpatient SFA [facility] [id number] William Quinones 2024-11-22 00:00:00 2024-11-22 00:00:00 Outpatient Visit [facility] [id number] William Quinones 2024-11-21 13:30:00 2024-11-21 15:47:27 Office Visit Nader Casanova [facility] 1.2.840.114 350.1.13.10 4.2.7.2.686 [id number] [facility] 2024-05-25 00:00:00 2024-11-12 07:03:17 Orders Only Doctor Unassigned, Neffs Doctor Unassigned, Neffs [facility] ([place] 1.2.840.114 350.1.13.10 4.2.7.2.686 [id number] [facility] 2024-06-01 00:00:00 2024-11-12 07:01:42 Orders Only Doctor Unassigned, Neffs Doctor Unassigned, Neffs [facility] ([place] 1.2.840.114 350.1.13.10 4.2.7.2.686 [id number] [facility] 2017-01-28 00:00:00 2024-11-12 03:50:08 Orders Only Doctor Unassigned, Neffs Doctor Unassigned, Neffs [facility] ([place] 1.2.840.114 350.1.13.10 4.2.7.2.686 [id number] [id number] [facility] 2017-01-28 00:00:00 2024-11-12 03:50:07 Orders Only Doctor Unassigned, Neffs Doctor Unassigned, Neffs [facility] ([place]) 1.2.840.114 350.1.13.10 4.2.7.2.686 [id number] [id number] [facility] 2017-01-28 00:00:00 2024-11-12 03:50:07 Orders Only Doctor Unassigned, Neffs Doctor Unassigned, Neffs [facility] ([place]) 1.2.840.114 350.1.13.10 4.2.7.2.686 [id number] [id number] [facility] 2017-01-28 00:00:00 2024-11-12 03:50:06 Orders Only Doctor Unassigned, Neffs Doctor Unassigned, Neffs [facility] ([place]) 1.2.840.114 350.1.13.10 4.2.7.2.686 [id number] [id number] [facility] 2017-10-28 00:00:00 2024-11-12 03:27:23 Orders Only Noy, Fang Villafuerte, Fang [facility] 1.2.840.114 350.1.13.10 4.2.7.2.686 [id number] 086 [id number] [facility] 2018-02-16 00:00:00 2024-11-12 03:18:09 Orders Only Doctor Unassigned, Neffs Doctor Unassigned, Neffs [facility] ([place]) 1.2.840.114 350.1.13.10 4.2.7.2.686 [id number] [facility] 2022-08-15 00:00:00 2024-11-12 02:45:05 Orders Only Mulcare, Shu Mulcare, Shu [facility] 1.2.840.114 350.1.13.10 4.2.7.2.686 [id number] [facility] 2024-11-07 14:45:00 2024-11-07 15:42:47 Outpatient R NADER CASANOVA [facility] [id number] [facility] 2024-11-07 14:45:00 2024-11-07 15:42:47 Office Visit Nader Casanova [facility] 1.2840.114 350.1.13.10 4.2.7.2.686 [id number] [facility] 2024-11-04 00:00:00 2024-11-04 10:25:01 Transition of Care Davonte Oseguera Michele A [facility] 1.2840.114 350.1.13.10 4.2.7.2.686 [id number] [facility] 2024-10-13 12:34:00 2024-11-03 19:00:00 Inpatient X EDILBERTO NADER KELLY [facility] [id number] [facility] 2024-10-13 12:34:00 2024-11-03 19:00:00 Hospital Encounter Miriam Hill, Nader Guerin [facility] ([place] 1.2840.114 350.1.13.10 4.2.7.2.686 [id number] [id number] [facility] 2024-10-22 09:20:00 2024-10-22 10:50:00 Surgery Andrew Sena [facility] ([place]) 1.2840.114 350.1.13.10 4.2.7.2.686 [id number] [facility] 2024-10-16 07:20:00 2024-10-16 11:07:00 Surgery Luis Jay [facility] ([place]) 1.2840.114 350.1.13.10 4.2.7.2.686 [id number] [facility] 2024-10-14 10:05:00 2024-10-14 11:55:00 Surgery Nader Casanova [facility] 1.2.840.114 350.1.13.10 4.2.7.2.686 [id number] [id number] [facility] 2024-09-24 19:25:00 2024-09-24 22:02:00 Emergency X MATT, GERSON [facility] [id number] [facility] 2024-09-24 19:25:00 2024-09-24 22:02:00 Emergency Matt, Gerson [facility] 1..840.114 350.1.13.10 4.2.7.2.686 [id number] [id number] [facility] 2024-09-23 13:26:32 2024-09-23 13:26:32 Outpatient SFA [facility] [id number] Wliliam Quinones 2024-09-22 00:00:00 2024-09-22 12:53:50 Transition of Care Davonte Oseguera Michele A [facility] 1..840.114 350.1.13.10 4.2.7.2.686 [id number] [facility] 2024-09-20 01:11:00 2024-09-20 12:30:00 Outpatient WAYLON BORJA [facility] [id number] [facility] 2024-09-20 01:11:00 2024-09-20 12:30:00 Hospital Encounter Dilip Whitt David Edionwe, [facility] 1..840.114 350.1.13.10 4.2.7.2.686 [id number] [facility] 2024-09-15 17:10:18 2024-09-15 17:10:18 Outpatient SFA [facility] [id number] William Quinones 2024-09-06 09:18:00 2024-09-06 12:25:00 Emergency X MARS LAGUNA [facility] ERT [id number] [facility] 2024-09-06 09:18:00 2024-09-06 12:25:00 Emergency Mars Laguna [facility] .2.840.114 350.1.13.10 4.2.7.2.686 [id number] [facility] 2024-08-18 14:16:12 2024-08-18 14:16:12 Outpatient SFA [facility] [id number] William Quinones 2024-08-18 00:00:00 2024-08-18 00:00:00 Outpatient Visit [facility] [id number] William Quinones 2024-08-03 09:00:07 2024-08-03 09:00:07 Outpatient SFA [facility] [id number] William Quinones 2024-08-02 14:05:54 2024-08-02 14:05:54 Outpatient SFA [facility] [id number] William Quinones 2024-08-02 00:00:00 2024-08-02 00:00:00 Outpatient Visit [facility] [id number] William Quionnes 2024-07-25 16:00:00 2024-07-25 16:30:00 Office Visit Neha [facility]audh[facility] .2.840.114 350.1.13.10 4.2.7.2.686 [id number] [facility] 2024-07-25 16:00:00 2024-07-25 16:00:00 Outpatient NEHA YANG ELISHA [facility] [id number] [facility] 2024-07-04 10:30:00 2024-07-04 10:30:00 Outpatient R NEHA CHAUDHRY [facility] [id number] [facility] 2024-06-27 16:30:00 2024-06-27 16:30:00 Outpatient R NEHA CHAUDHRY [facility] [id number] [facility] 2024-06-10 15:28:00 2024-06-10 15:28:00 Outpatient SFA [facility] [id number] William Quinones 2024-06-09 00:00:00 2024-06-10 10:19:26 Telephone Neha Chaudhry [facility] 1.2.840.114 350.1.13.10 4.2.7.2.686 [id number] [facility] 2024-06-10 00:00:00 2024-06-10 00:00:00 Outpatient Visit [facility] [id number] William Quinones 2024-06-06 13:30:00 2024-06-06 15:27:25 Outpatient R NEHA CHAUDHRY [facility] [id number] [facility] 2024-06-06 13:30:00 2024-06-06 15:27:25 Office Visit Neha Chaudhry [facility] 1.2.840.114 350.1.13.10 4.2.7.2.686 [id number] [facility] 2024-05-24 00:00:00 2024-05-24 09:56:13 Telephone Ella Fallon [facility] 1.2.840.114 350.1.13.10 4.2.7.2.686 [id number] [facility] 2024-05-06 15:15:00 2024-05-06 16:06:59 Outpatient R ELLA FALLON [facility] [id number] [facility] 2024-05-06 15:15:00 2024-05-06 16:06:59 Office Visit Ella Fallon [facility] 1..840.114 350.1.13.10 4.2.7.2.686 [id number] [facility] 2024-05-02 15:49:33 2024-05-02 15:49:33 Outpatient SFA [facility] [id number] William Quinones 2024-05-02 14:00:00 2024-05-02 14:00:00 Outpatient R OBI-SIENA , JORDI OBI-SIENA , JORDI [facility] [id number] [facility] 2024-04-28 14:07:17 2024-04-28 14:07:17 Outpatient SFA [facility] [id number] William Quinones 2024-04-28 00:00:00 2024-04-28 00:00:00 Outpatient Visit [facility] [id number] William Quinones 2024-04-17 00:00:00 2024-04-17 11:47:26 Case Management Mili Schwartz [facility] 1..840.114 350.1.13.10 4.2.7.2.686 [id number] [facility] 2024-04-14 10:00:00 2024-04-14 11:21:27 Outpatient R [facility] [id number] [facility] 2024-04-14 10:00:00 2024-04-14 11:21:27 Office Visit Mili Schwartz [facility] 1..840.114 350.1.13.10 4.2.7.2.686 [id number] [facility] 2024-04-08 13:30:00 2024-04-08 13:30:00 Outpatient R ADUMMILI VIVIAN [facility] [id number] [facility] 2024-03-21 00:00:00 2024-03-25 11:42:16 Refill [facility]id[facility]Ella [facility] 1.2.840.114 350.1.13.10 4.2.7.2.686 [id number] [facility] 2024-03-11 00:00:00 2024-03-15 09:54:25 [facility] 1.2.840.114 350.1.13.10 4.2.7.2.686 [id number] [facility] 2024-02-29 00:00:00 2024-02-29 15:54:01 Telephone Wes Holleyrenuka [facility] 1.2.840.114 350.1.13.10 4.2.7.2.686 [id number] [facility] 2024-02-24 13:38:14 2024-02-24 13:38:14 Outpatient SFA [facility] [id number] William Quinones 2024-02-18 00:00:00 2024-02-23 08:46:50 Refill Mars Avilez [facility] 1.2.840.114 350.1.13.10 4.2.7.2.686 [id number] [facility] 2024-01-08 13:29:20 2024-01-08 23:59:00 Out[address] R [address]Y [facility] [id number] [facility] 2024-01-08 13:10:00 2024-01-08 23:59:00 Hospital Encounter Radiology [facility] 1.2.840.114 350.1.13.10 4.2.7.2.686 [id number] [facility] 2024-01-04 14:12:29 2024-01-04 14:12:29 Outpatient SFA [facility] [id number] William Quinones 2024-01-04 00:00:00 2024-01-04 00:00:00 Outpatient Visit [facility] [id number] William Quinones 2023-12-11 00:00:00 2023-12-11 00:00:00 [facility] 1.2.840.114 350.1.13.10 4.2.7.2.686 [id number] 059 [id number] [facility] 2023-11-26 15:41:07 2023-11-26 23:59:00 [id number] 2023-11-26 15:41:07 2023-11-26 23:59:00 [facility] 1.2.840.114 350.1.13.10 4.2.7.2.686 [id number] [facility] 2023-11-26 00:00:00 2023-11-26 00:00:00 Outpatient Visit [facility] [id number] William Quinones 2023-11-25 16:00:00 2023-11-25 16:00:00 [facility] [id number] [facility] 2023-11-06 11:20:00 2023-11-06 11:43:15 [facility] [id number] [facility] 2023-11-06 11:20:00 2023-11-06 11:43:15 Office Visit Kishan [facility] 1..840.114 350.1.13.10 4.2.7.2.686 [id number] [facility] 2023-11-03 14:24:55 2023-11-03 14:24:55 Outpatient SFA [facility] [id number] William Quinones 2023-10-09 10:45:00 2023-10-09 10:59:47 Outpatient R DOE COATS [facility]RA[facility] [id number] [facility] 2023-10-09 10:45:00 2023-10-09 10:59:47 Office Visit Doe Coats [facility] 1..840.114 350.1.13.10 4.2.7.2.686 [id number] [facility] 2023-10-07 14:09:02 2023-10-07 14:09:02 Outpatient SFA [facility] [id number] William Quinones 2023-10-07 00:00:00 2023-10-07 00:00:00 Orders Only Doctor Unassigned, Neffs [facility] ..840.114 350.1.13.10 4.2.7.2.686 [id number] [facility] 2023-10-06 13:31:43 2023-10-06 13:31:43 Outpatient SFA [facility] [id number] William Quinones 2023-10-06 00:00:00 2023-10-06 00:00:00 Outpatient Visit [facility] [id number] William Quinones 2023-09-14 13:25:50 2023-09-14 13:25:50 Outpatient SFA [facility] [id number] William Quinones 2023-09-07 00:00:00 2023-09-07 00:00:00 Mars Wynne [facility] 1.2.840.114 350.1.13.10 4.2.7.2.686 [id number] [facility] 2023-08-26 10:00:00 2023-08-26 10:00:00 Outpatient Isai CHAUDHRY NEHA BELLA [facility] [id number] [facility] 2023-08-12 11:00:00 2023-08-12 11:00:00 Outpatient DOROTHY YANGNEHA EASLEY [facility] [id number] [facility] 2023-08-10 14:38:05 2023-08-10 14:38:05 Outpatient SFA [facility] [id number] William Quinones 2023-08-03 00:00:00 2023-08-03 00:00:00 Refill Mars Avilez [facility] 1.2.840.114 350.1.13.10 4.2.7.2.686 [id number] [facility] 2023-07-29 11:28:09 2023-07-29 11:28:09 Outpatient SFA [facility] [id number] William Quinones 2023-07-27 09:20:42 2023-07-27 09:20:42 Outpatient SFA [facility] [id number] William Quinones 2023-07-24 00:00:00 2023-07-24 00:00:00 Refill Gabi Chauhan [facility] 1.2.840.114 350.1.13.10 4.2.7.2.686 [id number] [facility] 2023-07-15 11:30:00 2023-07-15 11:30:00 Outpatient Isai CHAUDHRY NEHA BELLA [facility] [id number] [facility] 2023-07-01 11:56:41 2023-07-01 11:56:41 Outpatient [facility] [address] Joni 2023-06-22 00:00:00 2023-06-22 00:00:00 [facility] 1.2.840.114 350.1.13.10 4.2.7.2.686 [id number] [facility] 2023-06-17 16:30:00 2023-06-17 17:12:17 Outpatient R LORETA [facility] [id number] [facility] 2023-06-17 16:30:00 2023-06-17 17:12:17 Office Visit Loreta [facility] 1.2.840.114 350.1.13.10 4.2.7.2.686 [id number] [facility] 2023-06-05 10:43:18 2023-06-05 23:59:00 Outpatient R FLORESTHOMAS MILI [facility] [id number] [facility] 2023-06-05 10:40:00 2023-06-05 23:59:00 Hospital Encounter Mili Schwartz [facility] 1..840.114 350.1.13.10 4.2.7.2.686 [id number] [facility] 2023-06-05 00:00:00 2023-06-05 00:00:00 [facility] 1.2.840.114 350.1.13.10 4.2.7.2.686 [id number] [facility] 2023-06-01 00:00:00 2023-06-01 00:00:00 Doe Alfaro [facility] 1.2.840.114 350.1.13.10 4.2.7.2.686 [id number] [facility] 2023-05-25 00:00:00 2023-05-25 00:00:00 Outpatient R FLORESTHOMAS MILI [facility] [id number] [facility] 2023-05-20 09:15:00 2023-05-20 09:15:00 [id number] 2023-05-18 00:00:00 2023-05-18 00:00:00 Refill Mars Avilez [facility] 1.2.840.114 350.1.13.10 4.2.7.2.686 [id number] [facility] 2023-05-11 00:00:00 2023-05-11 00:00:00 Outpatient [facility] [id number] [facility] 2023-04-22 00:00:00 2023-04-22 00:00:00 Telephone Soila Ortiz [facility] 1.2.840.114 350.1.13.10 4.2.7.2.686 [id number] [facility] 2023-04-20 14:00:00 2023-04-20 14:50:42 Outpatient R DOE COATS [facility] [id number] [facility] 2023-04-20 14:00:00 2023-04-20 14:50:42 Office Visit Doe Coats [facility] 1.2.840.114 350.1.13.10 4.2.7.2.686 [id number] [facility] 2023-04-03 09:30:00 2023-04-03 10:11:06 Outpatient R [facility] [id number] [facility] 2023-04-03 09:30:00 2023-04-03 10:11:06 [facility] 1.2840.114 350.1.13.10 4.2.7.2.686 [id number] [facility] 2023-04-01 13:45:00 2023-04-01 14:01:55 Outpatient R DOE COATS [facility] [id number] [facility] 2023-04-01 13:45:00 2023-04-01 14:01:55 Office Visit Doe Coats [facility] 1.2840.114 350.1.13.10 4.2.7.2.686 [id number] [facility] 2023-03-18 15:18:46 2023-03-18 15:18:46 Outpatient [facility] [id number] [address] Joni 2023-03-18 00:00:00 2023-03-18 00:00:00 Orders Only Doctor Unassigned, [place] [facility] 1.2840.114 350.1.13.10 4.2.7.2.686 [id number] [facility] 2023-03-11 00:00:00 2023-03-11 00:00:00 Telephone Mars Avilez [facility] 1.2840.114 350.1.13.10 4.2.7.2.686 [id number] [facility] 2023-03-10 14:26:00 2023-03-10 17:18:00 Emergency X Ann HENRIQUEZ [facility] ERT [id number] [facility] 2023-03-10 14:26:00 2023-03-10 17:18:00 Emergency Ann Henriquez [facility] 1.2840.114 350.1.13.10 4.2.7.2.686 [id number] [facility] 2023-03-03 00:00:00 2023-03-03 00:00:00 Refill Mars Avilez [facility] 1.2.840.114 350.1.13.10 4.2.7.2.686 [id number] [facility] 2023-02-23 15:04:55 2023-02-23 15:04:55 Outpatient [facility] [id number] 2023-02-19 00:00:00 2023-02-19 00:00:00 Telephone [facility] [facility] 1.2.840.114 350.1.13.10 4.2.7.2.686 [id number] [facility] 2023-02-11 13:45:00 2023-02-11 14:50:01 Outpatient R MARS AVILEZ [facility] [id number] [facility] 2023-02-11 13:45:00 2023-02-11 14:50:01 Office Visit Mars Avilez [facility] 1.2.840.114 350.1.13.10 4.2.7.2.686 [id number] [facility] 2023-01-23 16:38:33 2023-01-23 23:59:00 Outpatient R RADIOLOGY [facility] [id number] [facility] 2023-01-23 16:38:33 2023-01-23 23:59:00 Hospital Encounter Radiology [facility] 1.2.840.114 350.1.13.10 4.2.7.2.686 [id number] [facility] 2023-01-14 13:42:13 2023-01-14 23:59:00 Outpatient R RADIOLOGY [facility] [id number] [facility] 2023-01-14 13:42:13 2023-01-14 23:59:00 Hospital Encounter Radiology [facility] 1.2.840.114 350.1.13.10 4.2.7.2.686 [id number] [facility] 2023-01-14 00:00:00 2023-01-14 00:00:00 Orders Only Doctor Unassigned, Neffs [facility] 1.2.840.114 350.1.13.10 4.2.7.2.686 [id number] [facility] 2022-12-24 17:04:30 2022-12-24 17:04:30 Outpatient [place] [id number] William F Catlin 2022-12-18 11:17:21 2022-12-18 11:17:21 Outpatient [place] [id number] William Annie Catlin 2022-11-03 14:50:44 2022-11-03 14:50:44 Outpatient [place] [id number] William Annie Catlin 2022-10-31 20:30:00 2022-10-31 20:59:58 Outpatient [address]A GUERRERO [facility] [id number] [facility] 2022-10-31 20:30:00 2022-10-31 20:59:58 Nurse Visit Nurse, [facility] 1.2.840.114 350.1.13.10 4.2.7.2.686 [id number] [facility] 2022-10-31 20:40:00 2022-10-31 20:40:00 Outpatient [address]FAELA GUERRERO [facility] [id number] [facility] 2022-09-26 13:30:00 2022-09-26 13:30:[address] [facility] [id number] [facility] 2022-08-28 15:00:00 2022-08-28 15:30:00 Office Visit Ella Fallon Rm, Adc Surg Spec Procedure [facility] 1.2.840.114 350.1.13.10 4.2.7.2.686 [id number] [facility] 2022-08-28 15:00:00 2022-08-28 15:00:00 [id number] 2022-08-28 00:00:00 2022-08-28 00:00:00 Telephone Jennshayne [facility] 1.2.840.114 350.1.13.10 4.2.7.2.686 [id number] [facility] 2022-08-20 00:00:00 2022-08-20 00:00:00 Telephone Jennshayne [facility] BUILDING 1.2.840.114 350.1.13.10 4.2.7.2.686 [id number] [facility] 2022-08-18 00:00:00 2022-08-18 00:00:00 Case Management [facility] 1.2.840.114 350.1.13.10 4.2.7.2.686 [id number] [facility] 2022-08-15 10:00:00 2022-08-15 14:46:06 [facility] [id number] [facility] 2022-08-15 10:00:00 2022-08-15 14:46:06 Nurse Visit Nurse, [facility] 1.2.840.114 350.1.13.10 4.2.7.2.686 [id number] [facility] 2022-07-23 08:10:00 2022-07-23 09:27:00 Emergency X MANUELA HUFF [facility] ERT [id number] [facility] 2022-07-23 08:10:00 2022-07-23 09:27:00 Emergency Manuela Huff [facility] 1.2.840.114 350.1.13.10 4.2.7.2.686 [id number] [facility] 2022-07-21 00:00:00 2022-07-21 00:00:00 Case Management Loreta [facility] 1.2.840.114 350.1.13.10 4.2.7.2.686 [id number] [facility] 2022-07-18 15:45:00 2022-07-18 16:00:00 Kitchen Help Handyman Visit Lab, Barry Avilez [facility]?SUSIGinny [facility] MED[facility] BU[facility] 1.2.840.114 350.1.13.10 4.2.7.2.686 [id number] [facility] 2022-07-18 15:45:00 2022-07-18 15:45:00 Outpatient R LORETA [facility] [id number] [facility] 2022-07-18 00:00:00 2022-07-18 00:00:00 [facility] 1.2.840.114 350.1.13.10 4.2.7.2.686 [id number] [facility] 2022-06-12 00:00:00 2022-06-12 00:00:00 Telephone Gabi Chauhan [facility] BUILDING 1.2.840.114 350.1.13.10 4.2.7.2.686 [id number] [facility] 2022-06-02 00:00:00 2022-06-02 00:00:00 Outpatient Visit [id number] 2022-05-30 00:00:00 2022-05-30 00:00:00 Orders Only Doctor Unassigned, [place]ffs [facility] 1.2.840.114 350.1.13.10 4.2.7.2.686 [id number] [facility] 2022-05-22 15:00:00 2022-05-22 15:00:00 [facility] [id number] [facility] 2022-05-20 14:22:33 2022-05-20 23:59:00 [facility] [id number] [facility] 2022-05-20 14:20:00 2022-05-20 23:59:[address] [facility] 1.2.840.114 350.1.13.10 4.2.7.2.686 [id number] [facility] 2022-05-09 15:00:00 2022-05-09 15:00:[address] [facility] [id number] [facility] 2022-04-29 00:00:00 2022-04-29 00:00:00 Orders Only Doctor Unassigned, [place]ffs [facility] 1..840.114 350.1.13.10 4.2.7.2.686 [id number] [facility] 2022-04-21 14:00:00 2022-04-21 14:00:00 Outpatient R [facility] [id number] [facility] 2022-04-09 14:15:00 2022-04-09 14:15:[address] [facility] [id number] [facility] 2022-04-04 00:00:00 2022-04-04 00:00:00 Case Management Tien Gabiderrick [facility] 1.2.840.114 350.1.13.10 4.2.7.2.686 [id number] [facility] 2022-04-02 14:00:00 2022-04-02 15:10:08 Outpatient R TIEN GABI [facility] [id number] [facility] 2022-04-02 14:00:00 2022-04-02 15:10:08 Office Visit TienGabi [facility] 1.2.840.114 350.1.13.10 4.2.7.2.686 [id number] [facility] 2022-02-27 00:00:00 2022-02-27 00:00:00 Telephone Mars Avilez [facility] BUILDING 1.2.840.114 350.1.13.10 4.2.7.2.686 [id number] [facility] 2022-02-25 14:56:34 2022-02-25 23:59:00 Outpatient R AVILEZMARS [facility] [id number] [facility] 2022-02-25 14:56:34 2022-02-25 23:59:00 Hospital Encounter Loreta Mars [facility] 1.2.840.114 350.1.13.10 4.2.7.2.686 [id number] [facility] 2022-02-25 14:56:34 2022-02-25 23:59:00 [facility] [id number] [facility] 2022-02-14 00:00:2022-02-14 00:00:00 Telephone Soledad Avileztney [facility] BUILDING 1.2.840.114 350.1.13.10 4.2.7.2.686 [id number] [facility] 2022-02-12 13:00:00 2022-02-12 13:41:45 [facility] [id number] [facility] 2022-02-12 13:00:00 2022-02-12 13:41:45 Office Visit Soledad Avileztney [facility] BUILDING 1.2.840.114 350.1.13.10 4.2.7.2.686 [id number] [facility] 2022-02-12 13:00:00 2022-02-12 13:41:45 [facility] [id number] [facility] 2022-02-12 00:00:00 2022-02-12 00:00:00 Orders Only Doctor Unassigned, Neffs [facility] 1.2.840.114 350.1.13.10 4.2.7.2.686 [id number] [facility] 2021-12-19 00:00:00 2021-12-19 00:00:00 Refill Ella Fallon [facility] BUILDING 1.2.840.114 350.1.13.10 4.2.7.2.686 [id number] [facility] 2021-06-24 00:00:00 2021-06-24 00:00:00 Telephone Soila Catherine [facility] Building 1.2.840.114 350.1.13.10 4.2.7.2.686 [id number] [facility] 2021-04-15 00:00:2021-04-15 00:00:00 Outpatient R TIEN GABI [facility] [id number] [facility] 2021-04-02 15:00:00 2021-04-02 15:00:00 Outpatient R TIEN GABI [facility] [id number] [facility] 2021-03-20 14:30:00 2021-03-20 14:30:00 Outpatient R GABI CHAUHAN [facility] [id number] [facility] 2021-03-19 14:30:00 2021-03-19 14:30:00 [facility] [id number] [facility] 2021-03-06 00:00:00 2021-03-06 00:00:00 Outpatient R RADIOLOGY [facility] [id number] [facility] 2021-02-28 00:00:00 2021-02-28 00:00:00 Outpatient R RADIOLOGY [facility] [id number] [facility] 2021-02-05 00:00:00 2021-02-05 00:00:[address] [facility] [id number] [facility] 2021-01-16 13:30:00 2021-01-16 13:30:00 Outpatient R SOILA CATHERINE [facility] [id number] [facility] 2020-12-05 13:30:00 2020-12-05 13:30:00 Outpatient R SOILA CATHERINE [facility] [id number] [facility] 2020-08-02 10:30:00 2020-08-02 10:30:00 Outpatient R MARCELO CHAPPELL [facility] [id number] [facility] 2020-06-28 10:00:00 2020-06-28 10:00:[address] [facility] [id number] [facility] 2020-05-14 14:00:00 2020-05-14 14:00:00 Outpatient R ELLA FALLON [facility] [id number] [facility] 2020-03-19 14:45:00 2020-03-19 14:45:00 Outpatient R GABI CHAUHAN [facility] [id number] [facility] 2020-03-12 14:30:00 2020-03-12 14:30:00 [facility] [id number] [facility] 2020-03-09 14:24:36 2020-03-09 23:59:00 Outpatient R TONY PLASENCIASARAH Alvarado [facility] [id number] [facility] 2020-02-24 14:00:00 2020-02-24 14:00:00 Outpatient R TIEN GABI [facility] [id number] [facility] 2020-02-09 10:30:00 2020-02-09 10:30:00 [facility] [id number] [facility] 2019-12-05 14:00:00 2019-12-05 14:00:00 [facility] [id number] [facility] 2019-11-21 13:30:00 2019-11-21 13:30:00 Outpatient Isai [facility]ON [facility] [id number] [facility] Results Test Description Test Time Test Comments Results Result Co mments Source [facility]GLU[facility]CA2+2025-01-10 00:35:29* Test Item Value Reference Range Interpretation Comme nts PH (test code = 6986229358) 7.46 7.32-7.42 H PCO2 NELY (test code = 0208401146) 40 41-51 L PO2 NELY (test code = 2488279238) 26 25-40 HCO3 NELY (test code = 8567960664) 27 24-28 AC VBE(BEAKER) (test code = 3270701860) 3.2 mEq/L THB NELY (test code = 3921875163) 9.7 g/dL 12.0-16.0 L %O2HB NELY (test code = 5627536171) 51.3 % 52.0-63.0 L %COHB NELY (test code = 5962482779) 0.3 % 0.0-1.5 %METHB NELY (test code = 9001421018) 0.1 % 0.4-1.5 L VOL%O2 NELY (test code = 6908469008) 7 % 6.0-12.0 QUES NA (test code = 6128865638) 136 mmol/L 135-145 K+ (test code = 3822876582) 4 mmol/L 3.5-5.0 AC CA IONZ (test code = 6581803722) 4.7 mg/dL 4.50-5.30 GLUCOSE (test code = 4092726401) 118 mg/dL 70-110 H Lab Interpretation (test cod e = 39683-9) Abnormal [facility] with Bzkn1046-84-72 09:22:32* Test Item Value Reference Range Interpretation Comme nts WBC (test code = 6690-2) 23.49 4.30-11.10 H RBC (test code = 789-8) 2.67 3.93-5.25 L HGB (test code = 718-7) 7.6 g/dL 11.6-15.0 L HCT (test code = 4544-3) 23.5 % 35.7-45.2 L MCV (test code = 787-2) 88 fL 80.6-95.5 MCH (test code = 785-6) 28.5 pg 25.9-32.8 MCHC (test code = 786-4) 32.3 g/dL 31.6-35.1 RDW-SD (test code = 20120-6) 47.1 fL 39.0-49.9 RDW-CV (test code = 788-0) 14.9 % 12.0-15.5 PLT (test code = 777-3) 305 166-358 MPV (test code = 66446-6) 8.9 fL 9.5-12.9 L NRBC/100 WBC (test code = 7886697374) 0 0.0-10.0 NRBC x10^3 (test code = 4395785532) See_Comment [Automated message] The system which generated this result transmitted reference range: 10*3/?L. The reference range was not used to interpret this result as normal/abnormal. GRAN MAT (NEUT) % (test code = 770-8) 61.4 % IMM GRAN % (test code = 8036547354) 0.8 % LYMPH % (test code = 736-9) 28.1 % MONO % (test code = 5905-5) 7.6 % EOS % (test code = 713-8) 1.6 % BASO % (test code = 706-2) 0.5 % GRAN MAT x10^3(ANC) (test code = 2099712724) 14.43 10*3/uL 1.88-7.09 H IMM GRAN x10^3 (test code = 8963559812) 0.18 10*3/uL 0.00-0.06 H LYMPH x10^3 (test code = 731-0) 6.6 10*3/uL 1.32-3.29 H MONO x10^3 (test code = 742-7) 1.78 10*3/uL 0.33-0.92 H EOS x10^3 (test code = 711-2) 0.38 10*3/uL 0.03-0.39 BASO x10^3 (test code = 704-7) 0.12 10*3/uL 0.01-0.07 H Lab Interpretation (test code = 24105-9) Abnormal [facility] with Ziun6505-66-41 09:22:32* Test Item Value Reference Range Interpretation Comme nts WBC (test code = 6690-2) 23.49 4.30-11.10 H RBC (test code = 789-8) 2.67 3.93-5.25 L HGB (test code = 718-7) 7.6 g/dL 11.6-15.0 L HCT (test code = 4544-3) 23.5 % 35.7-45.2 L MCV (test code = 787-2) 88 fL 80.6-95.5 MCH (test code = 785-6) 28.5 pg 25.9-32.8 MCHC (test code = 786-4) 32.3 g/dL 31.6-35.1 RDW-SD (test code = 38704-3) 47.1 fL 39.0-49.9 RDW-CV (test code = 788-0) 14.9 % 12.0-15.5 PLT (test code = 777-3) 305 166-358 MPV (test code = 59798-5) 8.9 fL 9.5-12.9 L NRBC/100 WBC (test code = 6999659168) 0 0.0-10.0 NRBC x10^3 (test code = 6294261876) See_Comment [Automated message] The system which generated this result transmitted reference range: 10*3/?L. The reference range was not used to interpret this result as normal/abnormal. GRAN MAT (NEUT) % (test code = 770-8) 61.4 % IMM GRAN % (test code = 1358851051) 0.8 % LYMPH % (test code = 736-9) 28.1 % MONO % (test code = 5905-5) 7.6 % EOS % (test code = 713-8) 1.6 % BASO % (test code = 706-2) 0.5 % GRAN MAT x10^3(ANC) (test code = 1502306493) 14.43 10*3/uL 1.88-7.09 H IMM GRAN x10^3 (test code = 2850178129) 0.18 10*3/uL 0.00-0.06 H LYMPH x10^3 (test code = 731-0) 6.6 10*3/uL 1.32-3.29 H MONO x10^3 (test code = 742-7) 1.78 10*3/uL 0.33-0.92 H EOS x10^3 (test code = 711-2) 0.38 10*3/uL 0.03-0.39 BASO x10^3 (test code = 704-7) 0.12 10*3/uL 0.01-0.07 H Lab Interpretation (test code = 50634-2) [facility] 09:18:54* Test Item Value Reference Range Interpretation Comme nts NA (test code = 7410956620) 137 mmol/L 135-145 K (test code = 5782387157) 4.1 mmol/L 3.5-5.0 CL (test code = 8619351645) 103 mmol/L 98-108 CO2 TOTAL (test code = 4284913142) 31 mmol/L 23-31 AGAP (test code = 8120277426) 3 2-16 BUN (test code = 8409803741) 10 mg/dL 7-23 GLUCOSE (test code = 4003973913) 109 mg/dL 70-110 CREATININE (test code = 2160-0) 0.61 mg/dL 0.50-1.04 TOTAL BILI (test code = 0523639266) 0.3 mg/dL 0.1-1.1 CALCIUM (test code = 4506855998) 8 mg/dL 8.6-10.6 L T PROTEIN (test code = 9235744470) 7 g/dL 6.3-8.2 ALBUMIN (test code = 7637105708) 2.7 g/dL 3.5-5.0 L ALK PHOS (test code = 3253390329) 121 U/L 34-122 ALTv (test code = 1742-6) 27 U/L 5-35 AST(SGOT) (test code = 3373533021) 44 U/L 13-40 H eGFR (test code = 00061-8) 95.7 mL/min/1.73m2 CKD-EPI eGFR (2020). Assuming creatinine has been stable day-to-day for at least three months, the eGFR indicates Category G1 (>= 90 mL/min/1.73 m2) Lab Interpretation (test code = 03047-0) [facility] 09:18:54* Test Item Value Reference Range Interpretation Comme nts MAGNESIUM (test code = 6503848448) 2 mg/dL 1.7-2.4 Lab Interpretation (test cod e = 46528-9) Normal [facility]2025-04-14 09:18:54* Test Item Value Reference Range Interpretation Comme nts PHOSPHORUS (test code = 1804985841) 3.5 mg/dL 2.5-5.0 Lab Interpretation (test cod e = 28651-2) Normal [facility] (52007)2025-01-09 09:18:54* Test Item Value Reference Range Interpretation Comme nts NA (test code = 3617327532) 137 mmol/L 135-145 K (test code = 2017321779) 4.1 mmol/L 3.5-5.0 CL (test code = 6453711245) 103 mmol/L 98-108 CO2 TOTAL (test code = 7031621077) 31 mmol/L 23-31 AGAP (test code = 6802345032) 3 2-16 BUN (test code = 4457357052) 10 mg/dL 7-23 GLUCOSE (test code = 3919811089) 109 mg/dL 70-110 CREATININE (test code = 2160-0) 0.61 mg/dL 0.50-1.04 TOTAL BILI (test code = 3380943023) 0.3 mg/dL 0.1-1.1 CALCIUM (test code = 5929048347) 8 mg/dL 8.6-10.6 L T PROTEIN (test code = 6988288957) 7 g/dL 6.3-8.2 ALBUMIN (test code = 0879287778) 2.7 g/dL 3.5-5.0 L ALK PHOS (test code = 4417581559) 121 U/L 34-122 ALTv (test code = 1742-6) 27 U/L 5-35 AST(SGOT) (test code = 7512517214) 44 U/L 13-40 H eGFR (test code = 81619-3) 95.7 mL/min/1.73m2 CKD-EPI eGFR (2020). Assuming creatinine has been stable day-to-day for at least three months, the eGFR indicates Category G1 (>= 90 mL/min/1.73 m2) Lab Interpretation (test code = 48260-6) Abnormal [facility]2025-04-14 09:18:54* Test Item Value Reference Range Interpretation Comme nts MAGNESIUM (test code = 1960609756) 2 mg/dL 1.7-2.4 Lab Interpretation (test cod e = 56359-3) Normal [facility]2025-04-14 09:18:54* Test Item Value Reference Range Interpretation Comme nts PHOSPHORUS (test code = 7710486765) 3.5 mg/dL 2.5-5.0 Lab Interpretation (test cod e = 13816-6) Normal [facility] Metabolic Panel (NA, K, CL, CO2, GLUCOSE, BUN, CREATININE, CA)2025-01-08 12:08:29* Test Item Value Reference Range Interpretation Comme nts NA (test code = 3652704870) 135 mmol/L 135-145 K (test code = 3242184259) 3.7 mmol/L 3.5-5.0 CL (test code = 3609996700) 104 mmol/L 98-108 CO2 TOTAL (test code = 3775578490) 28 mmol/L 23-31 AGAP (test code = 8456674393) 3 2-16 BUN (test code = 0833737592) 11 mg/dL 7-23 GLUCOSE (test code = 7599849094) 111 mg/dL 70-110 H CREATININE (test code = 2160-0) 0.75 mg/dL 0.50-1.04 CALCIUM (test code = 5676938981) 7.7 mg/dL 8.6-10.6 L eGFR (test code = 44869-0) 85.2 mL/min/1.73m2 CKD-EPI eGFR (2020). Assuming creatinine has been stable day-to-day for at least three months, the eGFR indicates Category G2 (60 - 89 mL/min/1.73 m2) Lab Interpretation (test code = 52638-4) Abnormal [facility]2025-04-13 12:08:29* Test Item Value Reference Range Interpretation Comme nts MAGNESIUM (test code = 7100705992) 2 mg/dL 1.7-2.4 Lab Interpretation (test cod e = 96796-0) Normal [facility] Metabolic Panel (NA, K, CL, CO2, GLUCOSE, BUN, CREATININE, CA)2025-01-08 12:08:29* Test Item Value Reference Range Interpretation Comme nts NA (test code = 4064239468) 135 mmol/L 135-145 K (test code = 3664529459) 3.7 mmol/L 3.5-5.0 CL (test code = 2522331576) 104 mmol/L 98-108 CO2 TOTAL (test code = 9755503973) 28 mmol/L 23-31 AGAP (test code = 7555191135) 3 2-16 BUN (test code = 0063214306) 11 mg/dL 7-23 GLUCOSE (test code = 6537278801) 111 mg/dL 70-110 H CREATININE (test code = 2160-0) 0.75 mg/dL 0.50-1.04 CALCIUM (test code = 0920946723) 7.7 mg/dL 8.6-10.6 L eGFR (test code = 84723-0) 85.2 mL/min/1.73m2 CKD-EPI eGFR (2020). Assuming creatinine has been stable day-to-day for at least three months, the eGFR indicates Category G2 (60 - 89 mL/min/1.73 m2) Lab Interpretation (test code = 52656-7) Abnormal [facility]25-04-13 12:08:29* Test Item Value Reference Range Interpretation Comme nts MAGNESIUM (test code = 6509563273) 2 mg/dL 1.7-2.4 Lab Interpretation (test cod e = 97392-4) Normal [facility] without Ytll8562-90-75 11:52:44* Test Item Value Reference Range Interpretation Comme nts WBC (test code = 6690-2) 15.49 4.30-11.10 H RBC (test code = 789-8) 2.76 3.93-5.25 L HGB (test code = 718-7) 7.7 g/dL 11.6-15.0 L HCT (test code = 4544-3) 23.4 % 35.7-45.2 L MCH (test code = 785-6) 27.9 pg 25.9-32.8 MCV (test code = 787-2) 84.8 fL 80.6-95.5 MCHC (test code = 786-4) 32.9 g/dL 31.6-35.1 PLT (test code = 777-3) 241 166-358 MPV (test code = 47481-4) 8.8 fL 9.5-12.9 L RDW-CV (test code = 788-0) 14.7 % 12.0-15.5 RDW-SD (test code = 92514-2) 45.1 fL 39.0-49.9 NRBC x10^3 (test code = 1278217179) See_Comment [Automated [place] ge] The system which generated this result transmitted reference range: 10*3/?L. The reference range was not used to interpret this result as normal/abnormal. NRBC/100 WBC (test code = 8353794583) 0 0.0-10.0 IPF % (test code = 1522753947) Lab Interpretation (test code = 06070-3) Abnormal [facility] without [id number] 11:52:44* Test Item Value Reference Range Interpretation Comme nts WBC (test code = 6690-2) 15.49 4.30-11.10 H RBC (test code = 789-8) 2.76 3.93-5.25 L HGB (test code = 718-7) 7.7 g/dL 11.6-15.0 L HCT (test code = 4544-3) 23.4 % 35.7-45.2 L MCH (test code = 785-6) 27.9 pg 25.9-32.8 MCV (test code = 787-2) 84.8 fL 80.6-95.5 MCHC (test code = 786-4) 32.9 g/dL 31.6-35.1 PLT (test code = 777-3) 241 166-358 MPV (test code = 10505-7) 8.8 fL 9.5-12.9 L RDW-CV (test code = 788-0) 14.7 % 12.0-15.5 RDW-SD (test code = 99297-2) 45.1 fL 39.0-49.9 NRBC x10^3 (test code = 7454792124) See_Comment [Automated [place] ge] The system which generated this result transmitted reference range: 10*3/?L. The reference range was not used to interpret this result as normal/abnormal. NRBC/100 WBC (test code = 7144774142) 0 0.0-10.0 IPF % (test code = 0444330440) Lab Interpretation (test code = 45195-7) [facility] ([facility]), 1 Units 2025-01-07 18:23:03* Test Item Value Reference Range Interpretation Comme nts Cross Match Result (test code = 4409) Compatible ISBT Blood Type Code (test code = 000285) 6200 Unit Blood Type (test code = 4410) A Pos Unit Number (test code = 4411) [id number] Blood Expiration Date & Time (test code = 590146) [id number] Status Information (test code = 4412) Issued Product Identification (test code = 4413) Red Blood Cells Product Code (test code = 4414) [id number] Performed at [facility] Laboratory [facility] Blood [address] Free: [phone] No. [id number] [facility] RBC (in units), 1 Units 2025-01-07 18:23:03* Test Item Value Reference Range Interpretation Comme nts Cross Match Result (test code = 4409) Compatible ISBT Blood Type Code (test code = 005535) 6200 Unit Blood Type (test code = 4410) A Pos Unit Number (test code = 4411) [id number] Blood Expiration Date & Time (test code = 494294) [id number] Status Information (test code = 4412) Issued Product Identification (test code = 4413) Red Blood Cells Product Code (test code = 4414) [id number] Performed at [facility] Blood [place] [id number] Free: [phone] No. [id number] [facility] with [id number] 12:02:34* Test Item Value Reference Range Interpretation Comme nts WBC (test code = 6690-2) 18.93 4.30-11.10 H RBC (test code = 789-8) 2.99 3.93-5.25 L HGB (test code = 718-7) 8.3 g/dL 11.6-15.0 L HCT (test code = 4544-3) 25.5 % 35.7-45.2 L MCV (test code = 787-2) 85.3 fL 80.6-95.5 MCH (test code = 785-6) 27.8 pg 25.9-32.8 MCHC (test code = 786-4) 32.5 g/dL 31.6-35.1 RDW-SD (test code = 64164-1) 45.5 fL 39.0-49.9 RDW-CV (test code = 788-0) 14.8 % 12.0-15.5 PLT (test code = 777-3) 310 166-358 MPV (test code = 11028-8) 8.9 fL 9.5-12.9 L NRBC/100 WBC (test code = 7765443140) 0 0.0-10.0 NRBC x10^3 (test code = 0557809395) See_Comment [Automated message] The system which generated this result transmitted reference range: 10*3/?L. The reference range was not used to interpret this result as normal/abnormal. GRAN MAT (NEUT) % (test code = 770-8) 65.9 % IMM GRAN % (test code = 9992832813) 0.7 % LYMPH % (test code = 736-9) 23.2 % MONO % (test code = 5905-5) 7.8 % EOS % (test code = 713-8) 1.7 % BASO % (test code = 706-2) 0.7 % GRAN MAT x10^3(ANC) (test code = 6110939477) 12.46 10*3/uL 1.88-7.09 H IMM GRAN x10^3 (test code = 0380815290) 0.13 10*3/uL 0.00-0.06 H LYMPH x10^3 (test code = 731-0) 4.4 10*3/uL 1.32-3.29 H MONO x10^3 (test code = 742-7) 1.48 10*3/uL 0.33-0.92 H EOS x10^3 (test code = 711-2) 0.33 10*3/uL 0.03-0.39 BASO x10^3 (test code = 704-7) 0.13 10*3/uL 0.01-0.07 H BANDS (test code = 6405321243) Increased A Lab Interpretation (test code = 42277-4) Abnormal [facility] with [id number] 12:02:34* Test Item Value Reference Range Interpretation Comme nts WBC (test code = 6690-2) 18.93 4.30-11.10 H RBC (test code = 789-8) 2.99 3.93-5.25 L HGB (test code = 718-7) 8.3 g/dL 11.6-15.0 L HCT (test code = 4544-3) 25.5 % 35.7-45.2 L MCV (test code = 787-2) 85.3 fL 80.6-95.5 MCH (test code = 785-6) 27.8 pg 25.9-32.8 MCHC (test code = 786-4) 32.5 g/dL 31.6-35.1 RDW-SD (test code = 35307-0) 45.5 fL 39.0-49.9 RDW-CV (test code = 788-0) 14.8 % 12.0-15.5 PLT (test code = 777-3) 310 166-358 MPV (test code = 72266-0) 8.9 fL 9.5-12.9 L NRBC/100 WBC (test code = 9015297342) 0 0.0-10.0 NRBC x10^3 (test code = 7064883133) See_Comment [Automated message] The system which generated this result transmitted reference range: 10*3/?L. The reference range was not used to interpret this result as normal/abnormal. GRAN MAT (NEUT) % (test code = 770-8) 65.9 % IMM GRAN % (test code = 6484325098) 0.7 % LYMPH % (test code = 736-9) 23.2 % MONO % (test code = 5905-5) 7.8 % EOS % (test code = 713-8) 1.7 % BASO % (test code = 706-2) 0.7 % GRAN MAT x10^3(ANC) (test code = 9305103383) 12.46 10*3/uL 1.88-7.09 H IMM GRAN x10^3 (test code = 8025496900) 0.13 10*3/uL 0.00-0.06 H LYMPH x10^3 (test code = 731-0) 4.4 10*3/uL 1.32-3.29 H MONO x10^3 (test code = 742-7) 1.48 10*3/uL 0.33-0.92 H EOS x10^3 (test code = 711-2) 0.33 10*3/uL 0.03-0.39 BASO x10^3 (test code = 704-7) 0.13 10*3/uL 0.01-0.07 H BANDS (test code = 7410126925) Increased A Lab Interpretation (test code = 48857-2) [facility]* Test Item Value Reference Range Interpretation Comme nts PHOSPHORUS (test code = 0604089530) 3.1 mg/dL 2.5-5.0 Lab Interpretation (test cod e = 12018-0) [facility] 11:49:00* Test Item Value Reference Range Interpretation Comme nts MAGNESIUM (test code = 1315597424) 2.1 mg/dL 1.7-2.4 Lab Interpretation (test cod e = 48500-1) [facility] (NA, K, CL, CO2, GLUCOSE, BUN, CREATININE, CA)2025-01-06 11:49:00* Test Item Value Reference Range Interpretation Comme nts NA (test code = 7365179276) 135 mmol/L 135-145 K (test code = 3746366177) 4.4 mmol/L 3.5-5.0 CL (test code = 2818527230) 104 mmol/L 98-108 CO2 TOTAL (test code = 3835542979) 27 mmol/L 23-31 AGAP (test code = 2106695422) 4 2-16 BUN (test code = 9492120370) 9 mg/dL 7-23 GLUCOSE (test code = 7294762372) 109 mg/dL 70-110 CREATININE (test code = 2160-0) 0.67 mg/dL 0.50-1.04 CALCIUM (test code = 9373799120) 7.9 mg/dL 8.6-10.6 L eGFR (test code = 65591-1) 93.6 mL/min/1.73m2 CKD-EPI eGFR (2020). Assuming creatinine has been stable day-to-day for at least three months, the eGFR indicates Category G1 (>= 90 mL/min/1.73 m2) Lab Interpretation (test code = 00556-2) [facility] 11:49:00* Test Item Value Reference Range Interpretation Comme nts PHOSPHORUS (test code = 8200570757) 3.1 mg/dL 2.5-5.0 Lab Interpretation (test cod e = 58303-8) [facility] 11:49:00* Test Item Value Reference Range Interpretation Comme nts MAGNESIUM (test code = 5902493905) 2.1 mg/dL 1.7-2.4 Lab Interpretation (test cod e = 66898-7) Normal [facility] Metabolic Panel (NA, K, CL, CO2, GLUCOSE, BUN, CREATININE, CA)2025-01-06 11:49:00* Test Item Value Reference Range Interpretation Comme nts NA (test code = 1712630178) 135 mmol/L 135-145 K (test code = 0516437260) 4.4 mmol/L 3.5-5.0 CL (test code = 8019792203) 104 mmol/L 98-108 CO2 TOTAL (test code = 2110848896) 27 mmol/L 23-31 AGAP (test code = 1088122094) 4 2-16 BUN (test code = 5562882859) 9 mg/dL 7-23 GLUCOSE (test code = 0756402696) 109 mg/dL 70-110 CREATININE (test code = 2160-0) 0.67 mg/dL 0.50-1.04 CALCIUM (test code = 6406897689) 7.9 mg/dL 8.6-10.6 L eGFR (test code = 29357-2) 93.6 mL/min/1.73m2 CKD-EPI eGFR (2020). Assuming creatinine has been stable day-to-day for at least three months, the eGFR indicates Category G1 (>= 90 mL/min/1.73 m2) Lab Interpretation (test code = 64474-0) Abnormal [facility] Metabolic Panel (NA, K, CL, CO2, GLUCOSE, BUN, CREATININE, CA)2025-01-05 11:46:28* Test Item Value Reference Range Interpretation Comme nts NA (test code = 2432796447) 135 mmol/L 135-145 K (test code = 6547676312) 2.9 mmol/L 3.5-5.0 LL CL (test code = 0167042166) 104 mmol/L 98-108 CO2 TOTAL (test code = 8890650482) 24 mmol/L 23-31 AGAP (test code = 4494542657) 7 2-16 BUN (test code = 1407015685) 9 mg/dL 7-23 GLUCOSE (test code = 1845285569) 114 mg/dL 70-110 H CREATININE (test code = 2160-0) 0.72 mg/dL 0.50-1.04 CALCIUM (test code = 5511723235) 7.8 mg/dL 8.6-10.6 L eGFR (test code = 12346-7) 89.5 mL/min/1.73m2 Lab Interpretation (test cod e = 96494-6) Abnormal [facility] Metabolic Panel (NA, K, CL, CO2, GLUCOSE, BUN, CREATININE, CA)2025-01-05 11:46:28* Test Item Value Reference Range Interpretation Comme nts NA (test code = 2589313749) 135 mmol/L 135-145 K (test code = 5920057546) 2.9 mmol/L 3.5-5.0 LL CL (test code = 0344423276) 104 mmol/L 98-108 CO2 TOTAL (test code = 1665838875) 24 mmol/L 23-31 AGAP (test code = 6539376263) 7 2-16 BUN (test code = 1595763086) 9 mg/dL 7-23 GLUCOSE (test code = 8913581598) 114 mg/dL 70-110 H CREATININE (test code = 2160-0) 0.72 mg/dL 0.50-1.04 CALCIUM (test code = 1340315487) 7.8 mg/dL 8.6-10.6 L eGFR (test code = 04142-4) 89.5 mL/min/1.73m2 Lab Interpretation (test cod e = 73435-7) [facility] 11:40:54* Test Item Value Reference Range Interpretation Comme nts PHOSPHORUS (test code = 4144179280) 3.4 mg/dL 2.5-5.0 Lab Interpretation (test cod e = 88194-2) [facility]:54* Test Item Value Reference Range Interpretation Comme nts MAGNESIUM (test code = 3624850763) 2 mg/dL 1.7-2.4 Lab Interpretation (test cod e = 86285-9) [facility] 11:40:54* Test Item Value Reference Range Interpretation Comme nts PHOSPHORUS (test code = 6984222572) 3.4 mg/dL 2.5-5.0 Lab Interpretation (test cod e = 09102-0) [facility] 11:40:54* Test Item Value Reference Range Interpretation Comme nts MAGNESIUM (test code = 4844706874) 2 mg/dL 1.7-2.4 Lab Interpretation (test cod e = 52874-9) Normal [facility] with Nwtv3923-58-58 11:26:56* Test Item Value Reference Range Interpretation Comme nts WBC (test code = 6690-2) 15.81 4.30-11.10 H RBC (test code = 789-8) 2.95 3.93-5.25 L HGB (test code = 718-7) 8.3 g/dL 11.6-15.0 L HCT (test code = 4544-3) 25.4 % 35.7-45.2 L MCV (test code = 787-2) 86.1 fL 80.6-95.5 MCH (test code = 785-6) 28.1 pg 25.9-32.8 MCHC (test code = 786-4) 32.7 g/dL 31.6-35.1 RDW-SD (test code = 31863-7) 45.9 fL 39.0-49.9 RDW-CV (test code = 788-0) 15 % 12.0-15.5 PLT (test code = 777-3) 276 166-358 MPV (test code = 48791-1) 8.6 fL 9.5-12.9 L NRBC/100 WBC (test code = 4596825596) 0 0.0-10.0 NRBC x10^3 (test code = 4216805855) See_Comment [Automated message] The system which generated this result transmitted reference range: 10*3/?L. The reference range was not used to interpret this result as normal/abnormal. GRAN MAT (NEUT) % (test code = 770-8) 66.3 % IMM GRAN % (test code = 6774692707) 0.6 % LYMPH % (test code = 736-9) 20.6 % MONO % (test code = 5905-5) 9.1 % EOS % (test code = 713-8) 2.8 % BASO % (test code = 706-2) 0.6 % GRAN MAT x10^3(ANC) (test code = 0091989671) 10.48 10*3/uL 1.88-7.09 H IMM GRAN x10^3 (test code = 7757364801) 0.09 10*3/uL 0.00-0.06 H LYMPH x10^3 (test code = 731-0) 3.26 10*3/uL 1.32-3.29 MONO x10^3 (test code = 742-7) 1.44 10*3/uL 0.33-0.92 H EOS x10^3 (test code = 711-2) 0.45 10*3/uL 0.03-0.39 H BASO x10^3 (test code = 704-7) 0.09 10*3/uL 0.01-0.07 H Lab Interpretation (test code = 66743-7) Abnormal [facility] with Togx2763-13-50 11:26:56* Test Item Value Reference Range Interpretation Comme nts WBC (test code = 6690-2) 15.81 4.30-11.10 H RBC (test code = 789-8) 2.95 3.93-5.25 L HGB (test code = 718-7) 8.3 g/dL 11.6-15.0 L HCT (test code = 4544-3) 25.4 % 35.7-45.2 L MCV (test code = 787-2) 86.1 fL 80.6-95.5 MCH (test code = 785-6) 28.1 pg 25.9-32.8 MCHC (test code = 786-4) 32.7 g/dL 31.6-35.1 RDW-SD (test code = 10890-7) 45.9 fL 39.0-49.9 RDW-CV (test code = 788-0) 15 % 12.0-15.5 PLT (test code = 777-3) 276 166-358 MPV (test code = 78344-7) 8.6 fL 9.5-12.9 L NRBC/100 WBC (test code = 2461090802) 0 0.0-10.0 NRBC x10^3 (test code = 8588027058) See_Comment [Automated message] The system which generated this result transmitted reference range: 10*3/?L. The reference range was not used to interpret this result as normal/abnormal. GRAN MAT (NEUT) % (test code = 770-8) 66.3 % IMM GRAN % (test code = 2462249516) 0.6 % LYMPH % (test code = 736-9) 20.6 % MONO % (test code = 5905-5) 9.1 % EOS % (test code = 713-8) 2.8 % BASO % (test code = 706-2) 0.6 % GRAN MAT x10^3(ANC) (test code = 7166442883) 10.48 10*3/uL 1.88-7.09 H IMM GRAN x10^3 (test code = 6694862903) 0.09 10*3/uL 0.00-0.06 H LYMPH x10^3 (test code = 731-0) 3.26 10*3/uL 1.32-3.29 MONO x10^3 (test code = 742-7) 1.44 10*3/uL 0.33-0.92 H EOS x10^3 (test code = 711-2) 0.45 10*3/uL 0.03-0.39 H BASO x10^3 (test code = 704-7) 0.09 10*3/uL 0.01-0.07 H Lab Interpretation (test code = 37596-5) Abnormal [facility] with [id number] 14:49:44* Test Item Value Reference Range Interpretation Comme nts WBC (test code = 6690-2) 18.78 4.30-11.10 H RBC (test code = 789-8) 3.02 3.93-5.25 L HGB (test code = 718-7) 8.5 g/dL 11.6-15.0 L HCT (test code = 4544-3) 26.8 % 35.7-45.2 L MCV (test code = 787-2) 88.7 fL 80.6-95.5 MCH (test code = 785-6) 28.1 pg 25.9-32.8 MCHC (test code = 786-4) 31.7 g/dL 31.6-35.1 RDW-SD (test code = 48425-2) 48.3 fL 39.0-49.9 RDW-CV (test code = 788-0) 14.9 % 12.0-15.5 PLT (test code = 777-3) 369 166-358 H MPV (test code = 77692-0) 8.4 fL 9.5-12.9 L NRBC/100 WBC (test code = 2263206779) 0 0.0-10.0 NRBC x10^3 (test code = 5726653283) See_Comment [Automated message] The system which generated this result transmitted reference range: 10*3/?L. The reference range was not used to interpret this result as normal/abnormal. GRAN MAT (NEUT) % (test code = 770-8) 60.1 % IMM GRAN % (test code = 7756818546) 0.7 % LYMPH % (test code = 736-9) 24.1 % MONO % (test code = 5905-5) 10.3 % EOS % (test code = 713-8) 4.2 % BASO % (test code = 706-2) 0.6 % GRAN MAT x10^3(ANC) (test code = 1127894005) 11.26 10*3/uL 1.88-7.09 H IMM GRAN x10^3 (test code = 4510942832) 0.14 10*3/uL 0.00-0.06 H LYMPH x10^3 (test code = 731-0) 4.53 10*3/uL 1.32-3.29 H MONO x10^3 (test code = 742-7) 1.94 10*3/uL 0.33-0.92 H EOS x10^3 (test code = 711-2) 0.79 10*3/uL 0.03-0.39 H BASO x10^3 (test code = 704-7) 0.12 10*3/uL 0.01-0.07 H BANDS (test code = 3603435820) Increased A Lab Interpretation (test code = 82015-5) Abnormal [facility] with Wzlv6385-96-44 14:49:44* Test Item Value Reference Range Interpretation Comme nts WBC (test code = 6690-2) 18.78 4.30-11.10 H RBC (test code = 789-8) 3.02 3.93-5.25 L HGB (test code = 718-7) 8.5 g/dL 11.6-15.0 L HCT (test code = 4544-3) 26.8 % 35.7-45.2 L MCV (test code = 787-2) 88.7 fL 80.6-95.5 MCH (test code = 785-6) 28.1 pg 25.9-32.8 MCHC (test code = 786-4) 31.7 g/dL 31.6-35.1 RDW-SD (test code = 84997-2) 48.3 fL 39.0-49.9 RDW-CV (test code = 788-0) 14.9 % 12.0-15.5 PLT (test code = 777-3) 369 166-358 H MPV (test code = 44162-7) 8.4 fL 9.5-12.9 L NRBC/100 WBC (test code = 6682630968) 0 0.0-10.0 NRBC x10^3 (test code = 6119220262) See_Comment [Automated message] The system which generated this result transmitted reference range: 10*3/?L. The reference range was not used to interpret this result as normal/abnormal. GRAN MAT (NEUT) % (test code = 770-8) 60.1 % IMM GRAN % (test code = 8229184394) 0.7 % LYMPH % (test code = 736-9) 24.1 % MONO % (test code = 5905-5) 10.3 % EOS % (test code = 713-8) 4.2 % BASO % (test code = 706-2) 0.6 % GRAN MAT x10^3(ANC) (test code = 7771352998) 11.26 10*3/uL 1.88-7.09 H IMM GRAN x10^3 (test code = 2189458343) 0.14 10*3/uL 0.00-0.06 H LYMPH x10^3 (test code = 731-0) 4.53 10*3/uL 1.32-3.29 H MONO x10^3 (test code = 742-7) 1.94 10*3/uL 0.33-0.92 H EOS x10^3 (test code = 711-2) 0.79 10*3/uL 0.03-0.39 H BASO x10^3 (test code = 704-7) 0.12 10*3/uL 0.01-0.07 H BANDS (test code = 3618784597) Increased A Lab Interpretation (test code = 65493-4) [facility] 13:15:11* Test Item Value Reference Range Interpretation Comme nts PHOSPHORUS (test code = 5114418505) 3.4 mg/dL 2.5-5.0 Lab Interpretation (test cod e = 05645-6) [facility] (NA, K, CL, CO2, GLUCOSE, BUN, CREATININE, CA)2025-01-04 13:15:11* Test Item Value Reference Range Interpretation Comme nts NA (test code = 5258277159) 135 mmol/L 135-145 K (test code = 1913930875) 3.2 mmol/L 3.5-5.0 L CL (test code = 2500500458) 102 mmol/L 98-108 CO2 TOTAL (test code = 8245735879) 26 mmol/L 23-31 AGAP (test code = 2431711493) 7 2-16 BUN (test code = 3030530457) 10 mg/dL 7-23 GLUCOSE (test code = 7534484195) 105 mg/dL 70-110 CREATININE (test code = 2160-0) 0.72 mg/dL 0.50-1.04 CALCIUM (test code = 7334532029) 8.1 mg/dL 8.6-10.6 L eGFR (test code = 72029-7) 89.5 mL/min/1.73m2 Lab Interpretation (test cod e = 09294-3) [facility] 13:15:11* Test Item Value Reference Range Interpretation Comme nts MAGNESIUM (test code = 9950392153) 2.1 mg/dL 1.7-2.4 Lab Interpretation (test cod e = 07094-7) [facility] 13:15:11* Test Item Value Reference Range Interpretation Comme nts PHOSPHORUS (test code = 9441983590) 3.4 mg/dL 2.5-5.0 Lab Interpretation (test cod e = 94996-0) [facility] (NA, K, CL, CO2, GLUCOSE, BUN, CREATININE, CA)2025-01-04 13:15:11* Test Item Value Reference Range Interpretation Comme nts NA (test code = 9300645356) 135 mmol/L 135-145 K (test code = 7137077862) 3.2 mmol/L 3.5-5.0 L CL (test code = 4146358971) 102 mmol/L 98-108 CO2 TOTAL (test code = 2761779933) 26 mmol/L 23-31 AGAP (test code = 7312600112) 7 2-16 BUN (test code = 8670659529) 10 mg/dL 7-23 GLUCOSE (test code = 9500819503) 105 mg/dL 70-110 CREATININE (test code = 2160-0) 0.72 mg/dL 0.50-1.04 CALCIUM (test code = 3796502305) 8.1 mg/dL 8.6-10.6 L eGFR (test code = 47364-9) 89.5 mL/min/1.73m2 Lab Interpretation (test cod e = 30907-8) [facility] 13:15:11* Test Item Value Reference Range Interpretation Comme nts MAGNESIUM (test code = 5417858640) 2.1 mg/dL 1.7-2.4 Lab Interpretation (test cod e = 49546-0) Normal [facility] with Arev7740-05-78 11:05:42* Test Item Value Reference Range Interpretation Comme nts WBC (test code = 6690-2) 17.65 4.30-11.10 H RBC (test code = 789-8) 3.12 3.93-5.25 L HGB (test code = 718-7) 8.9 g/dL 11.6-15.0 L HCT (test code = 4544-3) 27.3 % 35.7-45.2 L MCV (test code = 787-2) 87.5 fL 80.6-95.5 MCH (test code = 785-6) 28.5 pg 25.9-32.8 MCHC (test code = 786-4) 32.6 g/dL 31.6-35.1 RDW-SD (test code = 96627-3) 47.5 fL 39.0-49.9 RDW-CV (test code = 788-0) 14.8 % 12.0-15.5 PLT (test code = 777-3) 377 166-358 H MPV (test code = 85345-9) 8.7 fL 9.5-12.9 L NRBC/100 WBC (test code = 4365169445) 0 0.0-10.0 NRBC x10^3 (test code = 7417696928) See_Comment [Automated messa ge] The system which generated this result transmitted reference range: 10*3/?L. The reference range was not used to interpret this result as normal/abnormal. GRAN MAT (NEUT) % (test code = 770-8) 63.5 % IMM GRAN % (test code = 9140886154) 0.8 % LYMPH % (test code = 736-9) 21.8 % MONO % (test code = 5905-5) 10.1 % EOS % (test code = 713-8) 3.2 % BASO % (test code = 706-2) 0.6 % GRAN MAT x10^3(ANC) (test code = 3341849229) 11.2 10*3/uL 1.88-7.09 H IMM GRAN x10^3 (test code = 2130215153) 0.15 10*3/uL 0.00-0.06 H LYMPH x10^3 (test code = 731-0) 3.84 10*3/uL 1.32-3.29 H MONO x10^3 (test code = 742-7) 1.79 10*3/uL 0.33-0.92 H EOS x10^3 (test code = 711-2) 0.56 10*3/uL 0.03-0.39 H BASO x10^3 (test code = 704-7) 0.11 10*3/uL 0.01-0.07 H Lab Interpretation (test code = 38011-3) Abnormal [facility] with Waye2690-34-52 11:05:42* Test Item Value Reference Range Interpretation Comme nts WBC (test code = 6690-2) 17.65 4.30-11.10 H RBC (test code = 789-8) 3.12 3.93-5.25 L HGB (test code = 718-7) 8.9 g/dL 11.6-15.0 L HCT (test code = 4544-3) 27.3 % 35.7-45.2 L MCV (test code = 787-2) 87.5 fL 80.6-95.5 MCH (test code = 785-6) 28.5 pg 25.9-32.8 MCHC (test code = 786-4) 32.6 g/dL 31.6-35.1 RDW-SD (test code = 59104-6) 47.5 fL 39.0-49.9 RDW-CV (test code = 788-0) 14.8 % 12.0-15.5 PLT (test code = 777-3) 377 166-358 H MPV (test code = 51015-8) 8.7 fL 9.5-12.9 L NRBC/100 WBC (test code = 2055374898) 0 0.0-10.0 NRBC x10^3 (test code = 3124204674) See_Comment [Automated messa ge] The system which generated this result transmitted reference range: 10*3/?L. The reference range was not used to interpret this result as normal/abnormal. GRAN MAT (NEUT) % (test code = 770-8) 63.5 % IMM GRAN % (test code = 8073908458) 0.8 % LYMPH % (test code = 736-9) 21.8 % MONO % (test code = 5905-5) 10.1 % EOS % (test code = 713-8) 3.2 % BASO % (test code = 706-2) 0.6 % GRAN MAT x10^3(ANC) (test code = 0819195210) 11.2 10*3/uL 1.88-7.09 H IMM GRAN x10^3 (test code = 0776545111) 0.15 10*3/uL 0.00-0.06 H LYMPH x10^3 (test code = 731-0) 3.84 10*3/uL 1.32-3.29 H MONO x10^3 (test code = 742-7) 1.79 10*3/uL 0.33-0.92 H EOS x10^3 (test code = 711-2) 0.56 10*3/uL 0.03-0.39 H BASO x10^3 (test code = 704-7) 0.11 10*3/uL 0.01-0.07 H Lab Interpretation (test code = 57175-6) [facility] 10:47:20* Test Item Value Reference Range Interpretation Comme nts MAGNESIUM (test code = 6498558787) 2.2 mg/dL 1.7-2.4 Lab Interpretation (test cod e = 03533-8) [facility] 10:47:20* Test Item Value Reference Range Interpretation Comme nts PHOSPHORUS (test code = 2217505707) 3 mg/dL 2.5-5.0 Lab Interpretation (test cod e = 23384-1) [facility] (NA, K, CL, CO2, GLUCOSE, BUN, CREATININE, CA)2025-01-03 10:47:20* Test Item Value Reference Range Interpretation Comme nts NA (test code = 8422520691) 135 mmol/L 135-145 K (test code = 7304789400) 3.3 mmol/L 3.5-5.0 L CL (test code = 8624638246) 105 mmol/L 98-108 CO2 TOTAL (test code = 8750243125) 24 mmol/L 23-31 AGAP (test code = 8250375291) 6 2-16 BUN (test code = 6342882350) 10 mg/dL 7-23 GLUCOSE (test code = 5347512330) 117 mg/dL 70-110 H CREATININE (test code = 2160-0) 0.76 mg/dL 0.50-1.04 CALCIUM (test code = 3142548328) 8.2 mg/dL 8.6-10.6 L eGFR (test code = 82463-9) 83.9 mL/min/1.73m2 CKD-EPI eGFR (2020). Assuming creatinine has been stable day-to-day for at least three months, the eGFR indicates Category G2 (60 - 89 mL/min/1.73 m2) Lab Interpretation (test code = 40998-4) [facility] 10:47:20* Test Item Value Reference Range Interpretation Comme nts MAGNESIUM (test code = 4084184463) 2.2 mg/dL 1.7-2.4 Lab Interpretation (test cod e = 28112-9) [facility] 10:47:20* Test Item Value Reference Range Interpretation Comme nts PHOSPHORUS (test code = 0563174991) 3 mg/dL 2.5-5.0 Lab Interpretation (test cod e = 26039-3) [facility] (NA, K, CL, CO2, GLUCOSE, BUN, CREATININE, CA)2025-01-03 10:47:20* Test Item Value Reference Range Interpretation Comme nts NA (test code = 7179215211) 135 mmol/L 135-145 K (test code = 6299005138) 3.3 mmol/L 3.5-5.0 L CL (test code = 6897410923) 105 mmol/L 98-108 CO2 TOTAL (test code = 0069575746) 24 mmol/L 23-31 AGAP (test code = 3185775686) 6 2-16 BUN (test code = 0537031122) 10 mg/dL 7-23 GLUCOSE (test code = 9293113185) 117 mg/dL 70-110 H CREATININE (test code = 2160-0) 0.76 mg/dL 0.50-1.04 CALCIUM (test code = 9988217012) 8.2 mg/dL 8.6-10.6 L eGFR (test code = 98351-2) 83.9 mL/min/1.73m2 CKD-EPI eGFR (2020). Assuming creatinine has been stable day-to-day for at least three months, the eGFR indicates Category G2 (60 - 89 mL/min/1.73 m2) Lab Interpretation (test code = 16128-8) Abnormal [facility] with Clzx3506-30-79 10:53:41* Test Item Value Reference Range Interpretation Comme nts WBC (test code = 6690-2) 17.21 4.30-11.10 H RBC (test code = 789-8) 3.13 3.93-5.25 L HGB (test code = 718-7) 8.9 g/dL 11.6-15.0 L HCT (test code = 4544-3) 27.3 % 35.7-45.2 L MCV (test code = 787-2) 87.2 fL 80.6-95.5 MCH (test code = 785-6) 28.4 pg 25.9-32.8 MCHC (test code = 786-4) 32.6 g/dL 31.6-35.1 RDW-SD (test code = 05019-2) 47 fL 39.0-49.9 RDW-CV (test code = 788-0) 14.9 % 12.0-15.5 PLT (test code = 777-3) 386 166-358 H MPV (test code = 97239-2) 8.8 fL 9.5-12.9 L NRBC/100 WBC (test code = 4618105608) 0 0.0-10.0 NRBC x10^3 (test code = 9566108977) See_Comment [Automated messa ge] The system which generated this result transmitted reference range: 10*3/?L. The reference range was not used to interpret this result as normal/abnormal. GRAN MAT (NEUT) % (test code = 770-8) 61.5 % IMM GRAN % (test code = 0067573091) 0.7 % LYMPH % (test code = 736-9) 24.2 % MONO % (test code = 5905-5) 9.4 % EOS % (test code = 713-8) 3.7 % BASO % (test code = 706-2) 0.5 % GRAN MAT x10^3(ANC) (test code = 5272760890) 10.6 10*3/uL 1.88-7.09 H IMM GRAN x10^3 (test code = 9335677949) 0.12 10*3/uL 0.00-0.06 H LYMPH x10^3 (test code = 731-0) 4.16 10*3/uL 1.32-3.29 H MONO x10^3 (test code = 742-7) 1.61 10*3/uL 0.33-0.92 H EOS x10^3 (test code = 711-2) 0.64 10*3/uL 0.03-0.39 H BASO x10^3 (test code = 704-7) 0.08 10*3/uL 0.01-0.07 H Lab Interpretation (test code = 06342-7) Abnormal [facility] with [id number] 10:53:41* Test Item Value Reference Range Interpretation Comme nts WBC (test code = 6690-2) 17.21 4.30-11.10 H RBC (test code = 789-8) 3.13 3.93-5.25 L HGB (test code = 718-7) 8.9 g/dL 11.6-15.0 L HCT (test code = 4544-3) 27.3 % 35.7-45.2 L MCV (test code = 787-2) 87.2 fL 80.6-95.5 MCH (test code = 785-6) 28.4 pg 25.9-32.8 MCHC (test code = 786-4) 32.6 g/dL 31.6-35.1 RDW-SD (test code = 01254-5) 47 fL 39.0-49.9 RDW-CV (test code = 788-0) 14.9 % 12.0-15.5 PLT (test code = 777-3) 386 166-358 H MPV (test code = 11911-8) 8.8 fL 9.5-12.9 L NRBC/100 WBC (test code = 4480061947) 0 0.0-10.0 NRBC x10^3 (test code = 3388109738) See_Comment [Automated messa ge] The system which generated this result transmitted reference range: 10*3/?L. The reference range was not used to interpret this result as normal/abnormal. GRAN MAT (NEUT) % (test code = 770-8) 61.5 % IMM GRAN % (test code = 4102711339) 0.7 % LYMPH % (test code = 736-9) 24.2 % MONO % (test code = 5905-5) 9.4 % EOS % (test code = 713-8) 3.7 % BASO % (test code = 706-2) 0.5 % GRAN MAT x10^3(ANC) (test code = 0476925644) 10.6 10*3/uL 1.88-7.09 H IMM GRAN x10^3 (test code = 9439954997) 0.12 10*3/uL 0.00-0.06 H LYMPH x10^3 (test code = 731-0) 4.16 10*3/uL 1.32-3.29 H MONO x10^3 (test code = 742-7) 1.61 10*3/uL 0.33-0.92 H EOS x10^3 (test code = 711-2) 0.64 10*3/uL 0.03-0.39 H BASO x10^3 (test code = 704-7) 0.08 10*3/uL 0.01-0.07 H Lab Interpretation (test code = 93470-9) [facility]* Test Item Value Reference Range Interpretation Comme nts MAGNESIUM (test code = 7643048369) 2.1 mg/dL 1.7-2.4 Lab Interpretation (test cod e = 65892-4) Normal [facility] [facility]:49:34* Test Item Value Reference Range Interpretation Comme nts PHOSPHORUS (test code = 5390760409) 3.5 mg/dL 2.5-5.0 Lab Interpretation (test cod e = 10812-7) Normal [facility] Metabolic Panel (NA, K, CL, CO2, GLUCOSE, BUN, CREATININE, CA)2025-01-02 10:49:34* Test Item Value Reference Range Interpretation Comme nts NA (test code = 4490713246) 132 mmol/L 135-145 L K (test code = 2931812831) 3.2 mmol/L 3.5-5.0 L CL (test code = 4210158422) 101 mmol/L 98-108 CO2 TOTAL (test code = 3933468339) 28 mmol/L 23-31 AGAP (test code = 2272688369) 3 2-16 BUN (test code = 3163617405) 10 mg/dL 7-23 GLUCOSE (test code = 5619944222) 115 mg/dL 70-110 H CREATININE (test code = 2160-0) 0.76 mg/dL 0.50-1.04 CALCIUM (test code = 2782948841) 8.2 mg/dL 8.6-10.6 L eGFR (test code = 96388-0) 83.9 mL/min/1.73m2 CKD-EPI eGFR (2020). Assuming creatinine has been stable day-to-day for at least three months, the eGFR indicates Category G2 (60 - 89 mL/min/1.73 m2) Lab Interpretation (test code = 98446-7) [facility]:49:34* Test Item Value Reference Range Interpretation Comme nts MAGNESIUM (test code = 8044572727) 2.1 mg/dL 1.7-2.4 Lab Interpretation (test cod e = 83743-7) [facility] 10:49:34* Test Item Value Reference Range Interpretation Comme nts PHOSPHORUS (test code = 2040870171) 3.5 mg/dL 2.5-5.0 Lab Interpretation (test cod e = 47080-8) Normal [facility] Metabolic Panel (NA, K, CL, CO2, GLUCOSE, BUN, CREATININE, CA)2025-01-02 10:49:34* Test Item Value Reference Range Interpretation Comme nts NA (test code = 8623453111) 132 mmol/L 135-145 L K (test code = 0055479060) 3.2 mmol/L 3.5-5.0 L CL (test code = 0739271503) 101 mmol/L 98-108 CO2 TOTAL (test code = 1825226538) 28 mmol/L 23-31 AGAP (test code = 8691460492) 3 2-16 BUN (test code = 7315733914) 10 mg/dL 7-23 GLUCOSE (test code = 7134931022) 115 mg/dL 70-110 H CREATININE (test code = 2160-0) 0.76 mg/dL 0.50-1.04 CALCIUM (test code = 9010397680) 8.2 mg/dL 8.6-10.6 L eGFR (test code = 27133-0) 83.9 mL/min/1.73m2 CKD-EPI eGFR (2020). Assuming creatinine has been stable day-to-day for at least three months, the eGFR indicates Category G2 (60 - 89 mL/min/1.73 m2) Lab Interpretation (test code = 29487-6) [facility] 12:12:04* Test Item Value Reference Range Interpretation Comme nts MAGNESIUM (test code = 4949388581) 2.1 mg/dL 1.7-2.4 Lab Interpretation (test cod e = 40210-9) Normal [facility] 12:12:04* Test Item Value Reference Range Interpretation Comme nts PHOSPHORUS (test code = 4899960012) 4 mg/dL 2.5-5.0 Lab Interpretation (test cod e = 71833-9) Normal [facility] Metabolic Panel (NA, K, CL, CO2, GLUCOSE, BUN, CREATININE, CA)2025-01-01 12:12:04* Test Item Value Reference Range Interpretation Comme nts NA (test code = 3149883924) 135 mmol/L 135-145 K (test code = 2795916833) 3.2 mmol/L 3.5-5.0 L CL (test code = 0663268340) 102 mmol/L 98-108 CO2 TOTAL (test code = 6302063294) 27 mmol/L 23-31 AGAP (test code = 7303674964) 6 2-16 BUN (test code = 4405631762) 9 mg/dL 7-23 GLUCOSE (test code = 0391292762) 104 mg/dL 70-110 CREATININE (test code = 2160-0) 0.79 mg/dL 0.50-1.04 CALCIUM (test code = 5819878380) 8.3 mg/dL 8.6-10.6 L eGFR (test code = 31812-4) 80.1 mL/min/1.73m2 CKD-EPI eGFR (2020). Assuming creatinine has been stable day-to-day for at least three months, the eGFR indicates Category G2 (60 - 89 mL/min/1.73 m2) Lab Interpretation (test code = 07275-8) [facility] 12:12:04* Test Item Value Reference Range Interpretation Comme nts MAGNESIUM (test code = 9815933816) 2.1 mg/dL 1.7-2.4 Lab Interpretation (test cod e = 67539-3) [facility] 12:12:04* Test Item Value Reference Range Interpretation Comme nts PHOSPHORUS (test code = 7903089729) 4 mg/dL 2.5-5.0 Lab Interpretation (test cod e = 39446-2) [facility] (NA, K, CL, CO2, GLUCOSE, BUN, CREATININE, CA)2025-01-01 12:12:04* Test Item Value Reference Range Interpretation Comme nts NA (test code = 5851880207) 135 mmol/L 135-145 K (test code = 5298911459) 3.2 mmol/L 3.5-5.0 L CL (test code = 2054864711) 102 mmol/L 98-108 CO2 TOTAL (test code = 6227352305) 27 mmol/L 23-31 AGAP (test code = 3952038027) 6 2-16 BUN (test code = 7924700182) 9 mg/dL 7-23 GLUCOSE (test code = 9730178025) 104 mg/dL 70-110 CREATININE (test code = 2160-0) 0.79 mg/dL 0.50-1.04 CALCIUM (test code = 5231061683) 8.3 mg/dL 8.6-10.6 L eGFR (test code = 56593-4) 80.1 mL/min/1.73m2 CKD-EPI eGFR (2020). Assuming creatinine has been stable day-to-day for at least three months, the eGFR indicates Category G2 (60 - 89 mL/min/1.73 m2) Lab Interpretation (test code = 74788-0) Abnormal [facility] with Imfe4005-33-23 12:05:48* Test Item Value Reference Range Interpretation Comme nts WBC (test code = 6690-2) 15.58 4.30-11.10 H RBC (test code = 789-8) 2.97 3.93-5.25 L HGB (test code = 718-7) 8.5 g/dL 11.6-15.0 L HCT (test code = 4544-3) 25.9 % 35.7-45.2 L MCV (test code = 787-2) 87.2 fL 80.6-95.5 MCH (test code = 785-6) 28.6 pg 25.9-32.8 MCHC (test code = 786-4) 32.8 g/dL 31.6-35.1 RDW-SD (test code = 50685-5) 46.7 fL 39.0-49.9 RDW-CV (test code = 788-0) 14.8 % 12.0-15.5 PLT (test code = 777-3) 347 166-358 MPV (test code = 40425-7) 9 fL 9.5-12.9 L NRBC/100 WBC (test code = 1555109949) 0 0.0-10.0 NRBC x10^3 (test code = 8606482628) See_Comment [Automated messa ge] The system which generated this result transmitted reference range: 10*3/?L. The reference range was not used to interpret this result as normal/abnormal. GRAN MAT (NEUT) % (test code = 770-8) 61.7 % IMM GRAN % (test code = 1431258618) 0.7 % LYMPH % (test code = 736-9) 23.7 % MONO % (test code = 5905-5) 9.4 % EOS % (test code = 713-8) 3.9 % BASO % (test code = 706-2) 0.6 % GRAN MAT x10^3(ANC) (test code = 4223549079) 9.61 10*3/uL 1.88-7.09 H IMM GRAN x10^3 (test code = 7749028551) 0.11 10*3/uL 0.00-0.06 H LYMPH x10^3 (test code = 731-0) 3.69 10*3/uL 1.32-3.29 H MONO x10^3 (test code = 742-7) 1.47 10*3/uL 0.33-0.92 H EOS x10^3 (test code = 711-2) 0.61 10*3/uL 0.03-0.39 H BASO x10^3 (test code = 704-7) 0.09 10*3/uL 0.01-0.07 H Lab Interpretation (test code = 08788-9) Abnormal [facility] with Udgn2808-68-80 12:05:48* Test Item Value Reference Range Interpretation Comme nts WBC (test code = 6690-2) 15.58 4.30-11.10 H RBC (test code = 789-8) 2.97 3.93-5.25 L HGB (test code = 718-7) 8.5 g/dL 11.6-15.0 L HCT (test code = 4544-3) 25.9 % 35.7-45.2 L MCV (test code = 787-2) 87.2 fL 80.6-95.5 MCH (test code = 785-6) 28.6 pg 25.9-32.8 MCHC (test code = 786-4) 32.8 g/dL 31.6-35.1 RDW-SD (test code = 97021-3) 46.7 fL 39.0-49.9 RDW-CV (test code = 788-0) 14.8 % 12.0-15.5 PLT (test code = 777-3) 347 166-358 MPV (test code = 91787-1) 9 fL 9.5-12.9 L NRBC/100 WBC (test code = 6263399628) 0 0.0-10.0 NRBC x10^3 (test code = 8918272578) See_Comment [Automated messa ge] The system which generated this result transmitted reference range: 10*3/?L. The reference range was not used to interpret this result as normal/abnormal. GRAN MAT (NEUT) % (test code = 770-8) 61.7 % IMM GRAN % (test code = 3325988674) 0.7 % LYMPH % (test code = 736-9) 23.7 % MONO % (test code = 5905-5) 9.4 % EOS % (test code = 713-8) 3.9 % BASO % (test code = 706-2) 0.6 % GRAN MAT x10^3(ANC) (test code = 9095120140) 9.61 10*3/uL 1.88-7.09 H IMM GRAN x10^3 (test code = 0424989839) 0.11 10*3/uL 0.00-0.06 H LYMPH x10^3 (test code = 731-0) 3.69 10*3/uL 1.32-3.29 H MONO x10^3 (test code = 742-7) 1.47 10*3/uL 0.33-0.92 H EOS x10^3 (test code = 711-2) 0.61 10*3/uL 0.03-0.39 H BASO x10^3 (test code = 704-7) 0.09 10*3/uL 0.01-0.07 H Lab Interpretation (test code = 25372-7) [facility] 12:36:30* Test Item Value Reference Range Interpretation Comme nts MAGNESIUM (test code = 9236199085) 2 mg/dL 1.7-2.4 Lab Interpretation (test cod e = 07181-8) [facility] 12:36:30* Test Item Value Reference Range Interpretation Comme nts PHOSPHORUS (test code = 8951569985) 4 mg/dL 2.5-5.0 Lab Interpretation (test cod e = 27383-3) Normal [facility] Metabolic Panel (NA, K, CL, CO2, GLUCOSE, BUN, CREATININE, CA)2024-12-31 12:36:30* Test Item Value Reference Range Interpretation Comme nts NA (test code = 2836763341) 135 mmol/L 135-145 K (test code = 9595179535) 3.8 mmol/L 3.5-5.0 Slight hemolysis CL (test code = 4259970599) 104 mmol/L 98-108 CO2 TOTAL (test code = 8107930024) 26 mmol/L 23-31 AGAP (test code = 1662658688) 5 2-16 BUN (test code = 6043595321) 10 mg/dL 7-23 Slight hemolysis GLUCOSE (test code = 3990527115) 102 mg/dL 70-110 CREATININE (test code = 2160-0) 0.76 mg/dL 0.50-1.04 CALCIUM (test code = 6734550256) 8.3 mg/dL 8.6-10.6 L eGFR (test code = 57934-4) 83.9 mL/min/1.73m2 CKD-EPI eGFR (2020). Assuming creatinine has been stable day-to-day for at least three months, the eGFR indicates Category G2 (60 - 89 mL/min/1.73 m2) Lab Interpretation (test code = 39725-9) [facility] 12:36:30* Test Item Value Reference Range Interpretation Comme nts MAGNESIUM (test code = 3345353318) 2 mg/dL 1.7-2.4 Lab Interpretation (test cod e = 59320-8) Normal [facility] 12:36:30* Test Item Value Reference Range Interpretation Comme nts PHOSPHORUS (test code = 1049942773) 4 mg/dL 2.5-5.0 Lab Interpretation (test cod e = 86260-4) Normal [facility] Metabolic Panel (NA, K, CL, CO2, GLUCOSE, BUN, CREATININE, CA)2024-12-31 12:36:30* Test Item Value Reference Range Interpretation Comme nts NA (test code = 9196623498) 135 mmol/L 135-145 K (test code = 1499298949) 3.8 mmol/L 3.5-5.0 Slight hemolysis CL (test code = 4607763908) 104 mmol/L 98-108 CO2 TOTAL (test code = 2387973877) 26 mmol/L 23-31 AGAP (test code = 8380409789) 5 2-16 BUN (test code = 0907326756) 10 mg/dL 7-23 Slight hemolysis GLUCOSE (test code = 2054993391) 102 mg/dL 70-110 CREATININE (test code = 2160-0) 0.76 mg/dL 0.50-1.04 CALCIUM (test code = 7561898528) 8.3 mg/dL 8.6-10.6 L eGFR (test code = 39727-8) 83.9 mL/min/1.73m2 CKD-EPI eGFR (2020). Assuming creatinine has been stable day-to-day for at least three months, the eGFR indicates Category G2 (60 - 89 mL/min/1.73 m2) Lab Interpretation (test code = 45032-9) Abnormal [facility] with Vryu6352-89-30 11:20:04* Test Item Value Reference Range Interpretation Comme nts WBC (test code = 6690-2) 14.17 4.30-11.10 H RBC (test code = 789-8) 2.9 3.93-5.25 L HGB (test code = 718-7) 8.2 g/dL 11.6-15.0 L HCT (test code = 4544-3) 25.6 % 35.7-45.2 L MCV (test code = 787-2) 88.3 fL 80.6-95.5 MCH (test code = 785-6) 28.3 pg 25.9-32.8 MCHC (test code = 786-4) 32 g/dL 31.6-35.1 RDW-SD (test code = 36409-1) 47.7 fL 39.0-49.9 RDW-CV (test code = 788-0) 14.9 % 12.0-15.5 PLT (test code = 777-3) 288 166-358 MPV (test code = 30532-3) 9.1 fL 9.5-12.9 L NRBC/100 WBC (test code = 4854238180) 0 0.0-10.0 NRBC x10^3 (test code = 3574833289) See_Comment [Automated messa ge] The system which generated this result transmitted reference range: 10*3/?L. The reference range was not used to interpret this result as normal/abnormal. GRAN MAT (NEUT) % (test code = 770-8) 64.7 % IMM GRAN % (test code = 8838867577) 0.8 % LYMPH % (test code = 736-9) 21.5 % MONO % (test code = 5905-5) 9.4 % EOS % (test code = 713-8) 3 % BASO % (test code = 706-2) 0.6 % GRAN MAT x10^3(ANC) (test code = 7815688469) 9.18 10*3/uL 1.88-7.09 H IMM GRAN x10^3 (test code = 8191061085) 0.12 10*3/uL 0.00-0.06 H LYMPH x10^3 (test code = 731-0) 3.04 10*3/uL 1.32-3.29 MONO x10^3 (test code = 742-7) 1.33 10*3/uL 0.33-0.92 H EOS x10^3 (test code = 711-2) 0.42 10*3/uL 0.03-0.39 H BASO x10^3 (test code = 704-7) 0.08 10*3/uL 0.01-0.07 H Lab Interpretation (test code = 40121-5) Abnormal [facility] with Mzfw4424-10-17 11:20:04* Test Item Value Reference Range Interpretation Comme nts WBC (test code = 6690-2) 14.17 4.30-11.10 H RBC (test code = 789-8) 2.9 3.93-5.25 L HGB (test code = 718-7) 8.2 g/dL 11.6-15.0 L HCT (test code = 4544-3) 25.6 % 35.7-45.2 L MCV (test code = 787-2) 88.3 fL 80.6-95.5 MCH (test code = 785-6) 28.3 pg 25.9-32.8 MCHC (test code = 786-4) 32 g/dL 31.6-35.1 RDW-SD (test code = 76336-3) 47.7 fL 39.0-49.9 RDW-CV (test code = 788-0) 14.9 % 12.0-15.5 PLT (test code = 777-3) 288 166-358 MPV (test code = 24271-2) 9.1 fL 9.5-12.9 L NRBC/100 WBC (test code = 9941399529) 0 0.0-10.0 NRBC x10^3 (test code = 4239342746) See_Comment [Automated messa ge] The system which generated this result transmitted reference range: 10*3/?L. The reference range was not used to interpret this result as normal/abnormal. GRAN MAT (NEUT) % (test code = 770-8) 64.7 % IMM GRAN % (test code = 7454268085) 0.8 % LYMPH % (test code = 736-9) 21.5 % MONO % (test code = 5905-5) 9.4 % EOS % (test code = 713-8) 3 % BASO % (test code = 706-2) 0.6 % GRAN MAT x10^3(ANC) (test code = 5965627379) 9.18 10*3/uL 1.88-7.09 H IMM GRAN x10^3 (test code = 4867702657) 0.12 10*3/uL 0.00-0.06 H LYMPH x10^3 (test code = 731-0) 3.04 10*3/uL 1.32-3.29 MONO x10^3 (test code = 742-7) 1.33 10*3/uL 0.33-0.92 H EOS x10^3 (test code = 711-2) 0.42 10*3/uL 0.03-0.39 H BASO x10^3 (test code = 704-7) 0.08 10*3/uL 0.01-0.07 H Lab Interpretation (test code = 31518-9) [facility]K+GLU+CA2+2024-12-30 21:49:01* Test Item Value Reference Range Interpretation Comme nts PH (test code = 9225454434) 7.46 7.32-7.42 H PCO2 NLEY (test code = 5689167899) 37 41-51 L PO2 NELY (test code = 4903797847) 200 25-40 HH HCO3 NELY (test code = 5437433086) 25 24-28 AC VBE(BEAKER) (test code = 9093304651) 1.4 mEq/L THB NELY (test code = 2530777067) 11.7 g/dL 12.0-16.0 L %O2HB NELY (test code = 2026563149) 98.9 % 52.0-63.0 H %COHB NELY (test code = 9385401811) 0.3 % 0.0-1.5 %METHB NELY (test code = 1121645120) 0.4 % 0.4-1.5 VOL%O2 NELY (test code = 6903393630) 16.7 % 6.0-12.0 H QUES NA (test code = 2147327374) 137 mmol/L 135-145 K+ (test code = 2569587710) 3 mmol/L 3.5-5.0 L AC CA IONZ (test code = 0095076061) 4.8 mg/dL 4.50-5.30 GLUCOSE (test code = 0258891646) 97 mg/dL 70-110 Lab Interpretation (test cod e = 86193-6) [facility]+NA+K+GLU+CA2+2024-12-30 21:49:01* Test Item Value Reference Range Interpretation Comme nts PH (test code = 4344850641) 7.46 7.32-7.42 H PCO2 NELY (test code = 4858117938) 37 41-51 L PO2 NELY (test code = 2730774849) 200 25-40 HH HCO3 NELY (test code = 8154974584) 25 24-28 AC VBE(BEAKER) (test code = 8020217467) 1.4 mEq/L THB NELY (test code = 2567954309) 11.7 g/dL 12.0-16.0 L %O2HB NELY (test code = 7075310751) 98.9 % 52.0-63.0 H %COHB NELY (test code = 6943454436) 0.3 % 0.0-1.5 %METHB NELY (test code = 6775741161) 0.4 % 0.4-1.5 VOL%O2 NELY (test code = 5068183995) 16.7 % 6.0-12.0 H QUES NA (test code = 9728398225) 137 mmol/L 135-145 K+ (test code = 4104969684) 3 mmol/L 3.5-5.0 L AC CA IONZ (test code = 7961106010) 4.8 mg/dL 4.50-5.30 GLUCOSE (test code = 0041818917) 97 mg/dL 70-110 Lab Interpretation (test cod e = 07638-2) [facility] High Qheal2778-35-61 21:25:42* Test Item Value Reference Range Interpretation Comme nts ACTHR (test code = 5751460995) 200 96-152 H Lab Interpretation (test cod e = 26371-8) [facility] Wdwqa5361-11-90 21:25:42* Test Item Value Reference Range Interpretation Comme nts ACTHR (test code = 2489870438) 200 96-152 H Lab Interpretation (test cod e = 71687-9) [facility] VDGNDXIAKPJFV1105-85-85 13:08:50 Ordered by an unspecified provider.[facility]/SUPPLY PWBLSMAPAHRZW0622-60-33 13:08:39Ordered by an unspecified provider.[facility] BranchaPTT (for use with Heparin Drip)2024-12-27 23:44:52* Test Item Value Reference Range Interpretation Comme nts APTT Patient (test code = 3173-2) 62 26-36 H Lab Interpretation (test cod e = 05383-4) [facility] use with Heparin Drip)2024-12-27 23:44:52* Test Item Value Reference Range Interpretation Comme nts APTT Patient (test code = 3173-2) 62 26-36 H Lab Interpretation (test cod e = 66460-9) [facility]normal [facility] HospitalThyroid Stimulating Hitnypa4969-95-62 17:59:55 * Test Item Value Reference Range Interpretation Comme nts TSH (test code = 7786484969) 3.46 0.45-4.70 Biotin has been reported to cause a negative bias, interpret results relative to patient's use of biotin. Lab Interpretation (test code = 86861-1) Normal [facility] HospitalTh[facility] Etewkry2935-58-30 17:59:55 * Test Item Value Reference Range Interpretation Comme nts TSH (test code = 5639386970) 3.46 0.45-4.70 Biotin has been reported to cause a negative bias, interpret results relative to patient's use of biotin. Lab Interpretation (test code = 31691-9) Normal [facility] use with Heparin Drip)2024-12-27 16:07:25* Test Item Value Reference Range Interpretation Comme nts APTT Patient (test code = 3173-2) 106 26-36 HH Lab Interpretation (test cod e = 80199-5) [facility] with Heparin Drip)2024-12-27 16:07:25* Test Item Value Reference Range Interpretation Comme nts APTT Patient (test code = 3173-2) 106 26-36 HH Lab Interpretation (test cod e = 02671-3) [facility] HospitalCb with Zrmn5343-59-96 11:10:55* Test Item Value Reference Range Interpretation Comme nts WBC (test code = 6690-2) 15.91 4.30-11.10 H RBC (test code = 789-8) 2.57 3.93-5.25 L HGB (test code = 718-7) 7.6 g/dL 11.6-15.0 L HCT (test code = 4544-3) 22.6 % 35.7-45.2 L MCV (test code = 787-2) 87.9 fL 80.6-95.5 MCH (test code = 785-6) 29.6 pg 25.9-32.8 MCHC (test code = 786-4) 33.6 g/dL 31.6-35.1 RDW-SD (test code = 63316-4) 49.6 fL 39.0-49.9 RDW-CV (test code = 788-0) 15.6 % 12.0-15.5 H PLT (test code = 777-3) 196 166-358 MPV (test code = 86124-0) 10 fL 9.5-12.9 NRBC/100 WBC (test code = 4004958476) 0 0.0-10.0 NRBC x10^3 (test code = 7283076192) See_Comment [Automated messa ge] The system which generated this result transmitted reference range: 10*3/?L. The reference range was not used to interpret this result as normal/abnormal. GRAN MAT (NEUT) % (test code = 770-8) 58.7 % IMM GRAN % (test code = 9798487282) 0.7 % LYMPH % (test code = 736-9) 27.2 % MONO % (test code = 5905-5) 11.7 % EOS % (test code = 713-8) 1.3 % BASO % (test code = 706-2) 0.4 % GRAN MAT x10^3(ANC) (test code = 8454434217) 9.35 10*3/uL 1.88-7.09 H IMM GRAN x10^3 (test code = 5411536143) 0.11 10*3/uL 0.00-0.06 H LYMPH x10^3 (test code = 731-0) 4.33 10*3/uL 1.32-3.29 H MONO x10^3 (test code = 742-7) 1.86 10*3/uL 0.33-0.92 H EOS x10^3 (test code = 711-2) 0.2 10*3/uL 0.03-0.39 BASO x10^3 (test code = 704-7) 0.06 10*3/uL 0.01-0.07 Lab Interpretation (test code = 64243-7) Abnormal [facility] with Byyz0455-21-52 11:10:55* Test Item Value Reference Range Interpretation Comme nts WBC (test code = 6690-2) 15.91 4.30-11.10 H RBC (test code = 789-8) 2.57 3.93-5.25 L HGB (test code = 718-7) 7.6 g/dL 11.6-15.0 L HCT (test code = 4544-3) 22.6 % 35.7-45.2 L MCV (test code = 787-2) 87.9 fL 80.6-95.5 MCH (test code = 785-6) 29.6 pg 25.9-32.8 MCHC (test code = 786-4) 33.6 g/dL 31.6-35.1 RDW-SD (test code = 75051-9) 49.6 fL 39.0-49.9 RDW-CV (test code = 788-0) 15.6 % 12.0-15.5 H PLT (test code = 777-3) 196 166-358 MPV (test code = 66751-9) 10 fL 9.5-12.9 NRBC/100 WBC (test code = 5179061192) 0 0.0-10.0 NRBC x10^3 (test code = 3383187344) See_Comment [Automated messa ge] The system which generated this result transmitted reference range: 10*3/?L. The reference range was not used to interpret this result as normal/abnormal. GRAN MAT (NEUT) % (test code = 770-8) 58.7 % IMM GRAN % (test code = 5695497324) 0.7 % LYMPH % (test code = 736-9) 27.2 % MONO % (test code = 5905-5) 11.7 % EOS % (test code = 713-8) 1.3 % BASO % (test code = 706-2) 0.4 % GRAN MAT x10^3(ANC) (test code = 5900407781) 9.35 10*3/uL 1.88-7.09 H IMM GRAN x10^3 (test code = 5308251487) 0.11 10*3/uL 0.00-0.06 H LYMPH x10^3 (test code = 731-0) 4.33 10*3/uL 1.32-3.29 H MONO x10^3 (test code = 742-7) 1.86 10*3/uL 0.33-0.92 H EOS x10^3 (test code = 711-2) 0.2 10*3/uL 0.03-0.39 BASO x10^3 (test code = 704-7) 0.06 10*3/uL 0.01-0.07 Lab Interpretation (test code = 04841-0) [facility]* Test Item Value Reference Range Interpretation Comme nts PHOSPHORUS (test code = 4960445738) 3.6 mg/dL 2.5-5.0 Lab Interpretation (test cod e = 60463-1) [facility] 10:56:09* Test Item Value Reference Range Interpretation Comme nts MAGNESIUM (test code = 8230704228) 1.8 mg/dL 1.7-2.4 Lab Interpretation (test cod e = 46725-6) [facility] (NA, K, CL, CO2, GLUCOSE, BUN, CREATININE, CA)2024-12-27 10:56:09* Test Item Value Reference Range Interpretation Comme nts NA (test code = 2355014577) 132 mmol/L 135-145 L K (test code = 2945878467) 3.3 mmol/L 3.5-5.0 L CL (test code = 0561381748) 101 mmol/L 98-108 CO2 TOTAL (test code = 2610218047) 28 mmol/L 23-31 AGAP (test code = 4857173604) 3 2-16 BUN (test code = 9653139432) 9 mg/dL 7-23 GLUCOSE (test code = 4319569469) 100 mg/dL 70-110 CREATININE (test code = 2160-0) 0.7 mg/dL 0.50-1.04 CALCIUM (test code = 9830752292) 7.8 mg/dL 8.6-10.6 L eGFR (test code = 51171-7) 92.6 mL/min/1.73m2 CKD-EPI eGFR (2020). Assuming creatinine has been stable day-to-day for at least three months, the eGFR indicates Category G1 (>= 90 mL/min/1.73 m2) Lab Interpretation (test code = 34243-2) [facility] 10:56:09* Test Item Value Reference Range Interpretation Comme nts PHOSPHORUS (test code = 2374944827) 3.6 mg/dL 2.5-5.0 Lab Interpretation (test cod e = 21364-7) [facility] 10:56:09* Test Item Value Reference Range Interpretation Comme nts MAGNESIUM (test code = 2006967067) 1.8 mg/dL 1.7-2.4 Lab Interpretation (test cod e = 77452-0) [facility] (NA, K, CL, CO2, GLUCOSE, BUN, CREATININE, CA)2024-12-27 10:56:09* Test Item Value Reference Range Interpretation Comme nts NA (test code = 9545282808) 132 mmol/L 135-145 L K (test code = 2162174615) 3.3 mmol/L 3.5-5.0 L CL (test code = 8827352389) 101 mmol/L 98-108 CO2 TOTAL (test code = 9613825713) 28 mmol/L 23-31 AGAP (test code = 4878522337) 3 2-16 BUN (test code = 5625652951) 9 mg/dL 7-23 GLUCOSE (test code = 9445584022) 100 mg/dL 70-110 CREATININE (test code = 2160-0) 0.7 mg/dL 0.50-1.04 CALCIUM (test code = 3914819581) 7.8 mg/dL 8.6-10.6 L eGFR (test code = 35965-3) 92.6 mL/min/1.73m2 CKD-EPI eGFR (2020). Assuming creatinine has been stable day-to-day for at least three months, the eGFR indicates Category G1 (>= 90 mL/min/1.73 m2) Lab Interpretation (test code = 41712-6) [facility] with Hep[facility] Drip[facility]2024-12-27 05:23:59* Test Item Value Reference Range Interpretation Comme nts APTT Patient (test code = 3173-2) 130 26-36 HH Lab Interpretation (test cod e = 54107-2) [facility] Drip[facility]2024-12-27 05:23:59* Test Item Value Reference Range Interpretation Comme nts APTT Patient (test code = 3173-2) 130 26-36 HH Lab Interpretation (test cod e = 62391-8) [facility] Mtnvx4620-31-46 13:49:15* Test Item Value Reference Range Interpretation Comme nts ACTHR (test code = 5946388524) 251 96-152 H Lab Interpretation (test cod e = 67151-7) [facility] Ffhwa3262-20-09 13:49:15* Test Item Value Reference Range Interpretation Comme nts ACTHR (test code = 2385702555) 170 96-152 H Lab Interpretation (test cod e = 62775-9) [facility] Wrawn1940-63-36 13:49:15* Test Item Value Reference Range Interpretation Comme nts ACTHR (test code = 3764549288) 251 96-152 H Lab Interpretation (test cod e = 15118-3) [facility] Tqudl7655-99-02 13:49:15* Test Item Value Reference Range Interpretation Comme nts ACTHR (test code = 3120628480) 170 96-152 H Lab Interpretation (test cod e = 68075-6) [facility] Jyoia6249-73-30 13:49:15* Test Item Value Reference Range Interpretation Comme nts ACTHR (test code = 6961628083) 251 96-152 H Lab Interpretation (test cod e = 30836-1) [facility] High Uedks5815-15-40 13:49:15* Test Item Value Reference Range Interpretation Comme nts ACTHR (test code = 8940487930) 170 96-152 H Lab Interpretation (test cod e = 26894-3) [facility]normal [facility]/SUPPLY SDPIBYPYXCMXO0147-87-98 12:50:48 Ordered by an unspecified provider.[facility]for use with Heparin Drip)2024-12-26 12:06:05* Test Item Value Reference Range Interpretation Comme nts APTT Patient (test code = 3173-2) 84 26-36 H Lab Interpretation (test cod e = 01476-9) [facility] Heparin Drip[facility]2024-12-26 12:06:05* Test Item Value Reference Range Interpretation Comme nts APTT Patient (test code = 3173-2) 84 26-36 H Lab Interpretation (test cod e = 24386-7) [facility] Heparin Drip[facility]2024-12-26 12:06:05* Test Item Value Reference Range Interpretation Comme nts APTT Patient (test code = 3173-2) 84 26-36 H Lab Interpretation (test cod e = 96480-9) Abnormal [facility] with Xvwi3871-31-95 09:51:59* Test Item Value Reference Range Interpretation Comme nts WBC (test code = 6690-2) 15.46 4.30-11.10 H RBC (test code = 789-8) 2.84 3.93-5.25 L HGB (test code = 718-7) 8.1 g/dL 11.6-15.0 L HCT (test code = 4544-3) 25.4 % 35.7-45.2 L MCV (test code = 787-2) 89.4 fL 80.6-95.5 MCH (test code = 785-6) 28.5 pg 25.9-32.8 MCHC (test code = 786-4) 31.9 g/dL 31.6-35.1 RDW-SD (test code = 89863-1) 51.1 fL 39.0-49.9 H RDW-CV (test code = 788-0) 15.9 % 12.0-15.5 H PLT (test code = 777-3) 175 166-358 MPV (test code = 44572-0) 10.0 fL 9.5-12.9 NRBC/100 WBC (test code = 3245148476) 0.0 0.0-10.0 NRBC x10^3 (test code = 5635561703) See_Comment [Automated messa ge] The system which generated this result transmitted reference range: 10*3/?L. The reference range was not used to interpret this result as normal/abnormal. GRAN MAT (NEUT) % (test code = 770-8) 64.0 % IMM GRAN % (test code = 3194223592) 0.60 % LYMPH % (test code = 736-9) 22.6 % MONO % (test code = 5905-5) 11.2 % EOS % (test code = 713-8) 1.1 % BASO % (test code = 706-2) 0.5 % GRAN MAT x10^3(ANC) (test code = 8325601587) 9.91 10*3/uL 1.88-7.09 H IMM GRAN x10^3 (test code = 9058389266) 0.09 10*3/uL 0.00-0.06 H LYMPH x10^3 (test code = 731-0) 3.49 10*3/uL 1.32-3.29 H MONO x10^3 (test code = 742-7) 1.73 10*3/uL 0.33-0.92 H EOS x10^3 (test code = 711-2) 0.17 10*3/uL 0.03-0.39 BASO x10^3 (test code = 704-7) 0.07 10*3/uL 0.01-0.07 Lab Interpretation (test code = 19913-9) Abnormal [facility] with Harj6569-61-95 09:51:59* Test Item Value Reference Range Interpretation Comme nts WBC (test code = 6690-2) 15.46 4.30-11.10 H RBC (test code = 789-8) 2.84 3.93-5.25 L HGB (test code = 718-7) 8.1 g/dL 11.6-15.0 L HCT (test code = 4544-3) 25.4 % 35.7-45.2 L MCV (test code = 787-2) 89.4 fL 80.6-95.5 MCH (test code = 785-6) 28.5 pg 25.9-32.8 MCHC (test code = 786-4) 31.9 g/dL 31.6-35.1 RDW-SD (test code = 26371-8) 51.1 fL 39.0-49.9 H RDW-CV (test code = 788-0) 15.9 % 12.0-15.5 H PLT (test code = 777-3) 175 166-358 MPV (test code = 02645-2) 10 fL 9.5-12.9 NRBC/100 WBC (test code = 2915494727) 0 0.0-10.0 NRBC x10^3 (test code = 3278585826) See_Comment [Automated messa ge] The system which generated this result transmitted reference range: 10*3/?L. The reference range was not used to interpret this result as normal/abnormal. GRAN MAT (NEUT) % (test code = 770-8) 64 % IMM GRAN % (test code = 9213384614) 0.6 % LYMPH % (test code = 736-9) 22.6 % MONO % (test code = 5905-5) 11.2 % EOS % (test code = 713-8) 1.1 % BASO % (test code = 706-2) 0.5 % GRAN MAT x10^3(ANC) (test code = 8622423067) 9.91 10*3/uL 1.88-7.09 H IMM GRAN x10^3 (test code = 0462532924) 0.09 10*3/uL 0.00-0.06 H LYMPH x10^3 (test code = 731-0) 3.49 10*3/uL 1.32-3.29 H MONO x10^3 (test code = 742-7) 1.73 10*3/uL 0.33-0.92 H EOS x10^3 (test code = 711-2) 0.17 10*3/uL 0.03-0.39 BASO x10^3 (test code = 704-7) 0.07 10*3/uL 0.01-0.07 Lab Interpretation (test code = 79100-5) Abnormal [facility] with Liuo7853-28-16 09:51:59* Test Item Value Reference Range Interpretation Comme nts WBC (test code = 6690-2) 15.46 4.30-11.10 H RBC (test code = 789-8) 2.84 3.93-5.25 L HGB (test code = 718-7) 8.1 g/dL 11.6-15.0 L HCT (test code = 4544-3) 25.4 % 35.7-45.2 L MCV (test code = 787-2) 89.4 fL 80.6-95.5 MCH (test code = 785-6) 28.5 pg 25.9-32.8 MCHC (test code = 786-4) 31.9 g/dL 31.6-35.1 RDW-SD (test code = 51904-1) 51.1 fL 39.0-49.9 H RDW-CV (test code = 788-0) 15.9 % 12.0-15.5 H PLT (test code = 777-3) 175 166-358 MPV (test code = 50512-3) 10 fL 9.5-12.9 NRBC/100 WBC (test code = 9651084806) 0 0.0-10.0 NRBC x10^3 (test code = 2147806627) See_Comment [Automated messa ge] The system which generated this result transmitted reference range: 10*3/?L. The reference range was not used to interpret this result as normal/abnormal. GRAN MAT (NEUT) % (test code = 770-8) 64 % IMM GRAN % (test code = 2230735559) 0.6 % LYMPH % (test code = 736-9) 22.6 % MONO % (test code = 5905-5) 11.2 % EOS % (test code = 713-8) 1.1 % BASO % (test code = 706-2) 0.5 % GRAN MAT x10^3(ANC) (test code = 6588122956) 9.91 10*3/uL 1.88-7.09 H IMM GRAN x10^3 (test code = 6300918463) 0.09 10*3/uL 0.00-0.06 H LYMPH x10^3 (test code = 731-0) 3.49 10*3/uL 1.32-3.29 H MONO x10^3 (test code = 742-7) 1.73 10*3/uL 0.33-0.92 H EOS x10^3 (test code = 711-2) 0.17 10*3/uL 0.03-0.39 BASO x10^3 (test code = 704-7) 0.07 10*3/uL 0.01-0.07 Lab Interpretation (test code = 44641-7) Abnormal [facility] Metabolic Panel (NA, K, CL, CO2, GLUCOSE, BUN, CREATININE, CA)2024-12-26 09:36:36* Test Item Value Reference Range Interpretation Comme nts NA (test code = 6067185315) 137 mmol/L 135-145 K (test code = 1252071206) 4.0 mmol/L 3.5-5.0 CL (test code = 2793034444) 104 mmol/L 98-108 CO2 TOTAL (test code = 9056808148) 27 mmol/L 23-31 AGAP (test code = 0782409197) 6 2-16 BUN (test code = 8872919098) 9 mg/dL 7-23 GLUCOSE (test code = 7248125955) 132 mg/dL 70-110 H CREATININE (test code = 2160-0) 0.59 mg/dL 0.50-1.04 CALCIUM (test code = 4573893442) 7.6 mg/dL 8.6-10.6 L eGFR (test code = 03873-0) 96.5 mL/min/1.73m2 CKD-EPI eGFR (2020). Assuming creatinine has been stable day-to-day for at least three months, the eGFR indicates Category G1 (>= 90 mL/min/1.73 m2) Lab Interpretation (test code = 36145-1) Abnormal [facility] Metabolic Panel (NA, K, CL, CO2, GLUCOSE, BUN, CREATININE, CA)2024-12-26 09:36:36* Test Item Value Reference Range Interpretation Comme nts NA (test code = 7759908608) 137 mmol/L 135-145 K (test code = 1514039403) 4 mmol/L 3.5-5.0 CL (test code = 4409806942) 104 mmol/L 98-108 CO2 TOTAL (test code = 4757161951) 27 mmol/L 23-31 AGAP (test code = 9028214599) 6 2-16 BUN (test code = 4772177526) 9 mg/dL 7-23 GLUCOSE (test code = 8187876368) 132 mg/dL 70-110 H CREATININE (test code = 2160-0) 0.59 mg/dL 0.50-1.04 CALCIUM (test code = 9550991934) 7.6 mg/dL 8.6-10.6 L eGFR (test code = 58879-5) 96.5 mL/min/1.73m2 CKD-EPI eGFR (2020). Assuming creatinine has been stable day-to-day for at least three months, the eGFR indicates Category G1 (>= 90 mL/min/1.73 m2) Lab Interpretation (test code = 52091-5) Abnormal [facility] Metabolic Panel (NA, K, CL, CO2, GLUCOSE, BUN, CREATININE, CA)2024-12-26 09:36:36* Test Item Value Reference Range Interpretation Comme nts NA (test code = 0742151936) 137 mmol/L 135-145 K (test code = 6970431170) 4 mmol/L 3.5-5.0 CL (test code = 6506697216) 104 mmol/L 98-108 CO2 TOTAL (test code = 7145326095) 27 mmol/L 23-31 AGAP (test code = 9882145187) 6 2-16 BUN (test code = 1057130930) 9 mg/dL 7-23 GLUCOSE (test code = 0618461681) 132 mg/dL 70-110 H CREATININE (test code = 2160-0) 0.59 mg/dL 0.50-1.04 CALCIUM (test code = 8894988487) 7.6 mg/dL 8.6-10.6 L eGFR (test code = 54670-7) 96.5 mL/min/1.73m2 CKD-EPI eGFR (2020). Assuming creatinine has been stable day-to-day for at least three months, the eGFR indicates Category G1 (>= 90 mL/min/1.73 m2) Lab Interpretation (test code = 38232-9) [facility] 09:35:55* Test Item Value Reference Range Interpretation Comme nts MAGNESIUM (test code = 6997677184) 1.7 mg/dL 1.7-2.4 Lab Interpretation (test cod e = 96013-8) Normal [facility]2025-03-31 09:35:55* Test Item Value Reference Range Interpretation Comme nts PHOSPHORUS (test code = 4322461406) 2.9 mg/dL 2.5-5.0 Lab Interpretation (test cod e = 90270-2) Normal [facility]2025-03-31 09:35:55* Test Item Value Reference Range Interpretation Comme nts MAGNESIUM (test code = 0158119435) 1.7 mg/dL 1.7-2.4 Lab Interpretation (test cod e = 84949-3) Normal [facility]2025-03-31 09:35:55* Test Item Value Reference Range Interpretation Comme nts PHOSPHORUS (test code = 1130359753) 2.9 mg/dL 2.5-5.0 Lab Interpretation (test cod e = 15870-9) Normal [facility]2025-03-31 09:35:55* Test Item Value Reference Range Interpretation Comme nts MAGNESIUM (test code = 8714374986) 1.7 mg/dL 1.7-2.4 Lab Interpretation (test cod e = 30326-9) Normal [facility]2025-03-31 09:35:55* Test Item Value Reference Range Interpretation Comme nts PHOSPHORUS (test code = 0245528018) 2.9 mg/dL 2.5-5.0 Lab Interpretation (test cod e = 47617-2) Normal [facility] Packed RBC (in units), 1 Units 2024-12-25 15:28:34* Test Item Value Reference Range Interpretation Comme nts Cross Match Result (test code = 4409) Compatible ISBT Blood Type Code (test code = 288753) 1775 Unit Blood Type (test code = 4410) A Pos Unit Number (test code = 4411) [id number] Blood Expiration Date & Time (test code = 420327) 045624895341 Status Information (test code = 4412) Issued Product Identification (test code = 4413) Red Blood Cells Product Code (test code = 4414) [id number] Performed at [facility] Blood [address] [address]Lczf Free: [phone] No. [id number] [facility] Packed RBC (in units), 1 Units 2024-12-25 15:28:34* Test Item Value Reference Range Interpretation Comme nts Cross Match Result (test code = 4409) Compatible ISBT Blood Type Code (test code = 916444) 6200 Unit Blood Type (test code = 4410) A Pos Unit Number (test code = 4411) [id number] Blood Expiration Date & Time (test code = 234182) 364706748870 Status Information (test code = 4412) Issued Product Identification (test code = 4413) Red Blood Cells Product Code (test code = 4414) [id number] Performed at [facility] Blood [address] [address]Iihy Free: [phone] No. [id number] [facility] Packed RBC (in units), 1 Units 2024-12-25 15:28:34* Test Item Value Reference Range Interpretation Comme nts Cross Match Result (test code = 4409) Compatible ISBT Blood Type Code (test code = 246794) 6200 Unit Blood Type (test code = 4410) A Pos Unit Number (test code = 4411) [id number] Blood Expiration Date & Time (test code = 044960) 291975926759 Status Information (test code = 4412) Issued Product Identification (test code = 4413) Red Blood Cells Product Code (test code = 4414) [id number] Performed at [facility] Laboratory [facility] Blood [address] [address]Kyhp Free: [phone] No. [id number] [facility] with Fqme2718-54-26 12:19:38* Test Item Value Reference Range Interpretation Comme nts WBC (test code = 6690-2) 11.70 4.30-11.10 H RBC (test code = 789-8) 2.35 3.93-5.25 L HGB (test code = 718-7) 6.7 g/dL 11.6-15.0 L HCT (test code = 4544-3) 21.6 % 35.7-45.2 L MCV (test code = 787-2) 91.9 fL 80.6-95.5 MCH (test code = 785-6) 28.5 pg 25.9-32.8 MCHC (test code = 786-4) 31.0 g/dL 31.6-35.1 L RDW-SD (test code = 14191-2) 48.1 fL 39.0-49.9 RDW-CV (test code = 788-0) 14.4 % 12.0-15.5 PLT (test code = 777-3) 169 166-358 MPV (test code = 17062-9) 9.5 fL 9.5-12.9 NRBC/100 WBC (test code = 9935917338) 0.0 0.0-10.0 NRBC x10^3 (test code = 7950436679) See_Comment [Automated messa ge] The system which generated this result transmitted reference range: 10*3/?L. The reference range was not used to interpret this result as normal/abnormal. GRAN MAT (NEUT) % (test code = 770-8) 51.2 % IMM GRAN % (test code = 2462023560) 0.30 % LYMPH % (test code = 736-9) 32.9 % MONO % (test code = 5905-5) 13.6 % EOS % (test code = 713-8) 1.6 % BASO % (test code = 706-2) 0.4 % GRAN MAT x10^3(ANC) (test code = 5419860253) 5.98 10*3/uL 1.88-7.09 IMM GRAN x10^3 (test code = 3627490894) 0.04 10*3/uL 0.00-0.06 LYMPH x10^3 (test code = 731-0) 3.85 10*3/uL 1.32-3.29 H MONO x10^3 (test code = 742-7) 1.59 10*3/uL 0.33-0.92 H EOS x10^3 (test code = 711-2) 0.19 10*3/uL 0.03-0.39 BASO x10^3 (test code = 704-7) 0.05 10*3/uL 0.01-0.07 Lab Interpretation (test code = 70489-7) Abnormal [facility] with Silu3533-07-21 12:19:38* Test Item Value Reference Range Interpretation Comme nts WBC (test code = 6690-2) 11.7 4.30-11.10 H RBC (test code = 789-8) 2.35 3.93-5.25 L HGB (test code = 718-7) 6.7 g/dL 11.6-15.0 L HCT (test code = 4544-3) 21.6 % 35.7-45.2 L MCV (test code = 787-2) 91.9 fL 80.6-95.5 MCH (test code = 785-6) 28.5 pg 25.9-32.8 MCHC (test code = 786-4) 31 g/dL 31.6-35.1 L RDW-SD (test code = 38918-0) 48.1 fL 39.0-49.9 RDW-CV (test code = 788-0) 14.4 % 12.0-15.5 PLT (test code = 777-3) 169 166-358 MPV (test code = 25411-1) 9.5 fL 9.5-12.9 NRBC/100 WBC (test code = 0691297959) 0 0.0-10.0 NRBC x10^3 (test code = 0599352916) See_Comment [Automated messa ge] The system which generated this result transmitted reference range: 10*3/?L. The reference range was not used to interpret this result as normal/abnormal. GRAN MAT (NEUT) % (test code = 770-8) 51.2 % IMM GRAN % (test code = 4330917178) 0.3 % LYMPH % (test code = 736-9) 32.9 % MONO % (test code = 5905-5) 13.6 % EOS % (test code = 713-8) 1.6 % BASO % (test code = 706-2) 0.4 % GRAN MAT x10^3(ANC) (test code = 3713937443) 5.98 10*3/uL 1.88-7.09 IMM GRAN x10^3 (test code = 6522083930) 0.04 10*3/uL 0.00-0.06 LYMPH x10^3 (test code = 731-0) 3.85 10*3/uL 1.32-3.29 H MONO x10^3 (test code = 742-7) 1.59 10*3/uL 0.33-0.92 H EOS x10^3 (test code = 711-2) 0.19 10*3/uL 0.03-0.39 BASO x10^3 (test code = 704-7) 0.05 10*3/uL 0.01-0.07 Lab Interpretation (test code = 49766-0) Abnormal [facility] with Xhqd9076-61-25 12:19:38* Test Item Value Reference Range Interpretation Comme nts WBC (test code = 6690-2) 11.7 4.30-11.10 H RBC (test code = 789-8) 2.35 3.93-5.25 L HGB (test code = 718-7) 6.7 g/dL 11.6-15.0 L HCT (test code = 4544-3) 21.6 % 35.7-45.2 L MCV (test code = 787-2) 91.9 fL 80.6-95.5 MCH (test code = 785-6) 28.5 pg 25.9-32.8 MCHC (test code = 786-4) 31 g/dL 31.6-35.1 L RDW-SD (test code = 88696-3) 48.1 fL 39.0-49.9 RDW-CV (test code = 788-0) 14.4 % 12.0-15.5 PLT (test code = 777-3) 169 166-358 MPV (test code = 43613-9) 9.5 fL 9.5-12.9 NRBC/100 WBC (test code = 3394163659) 0 0.0-10.0 NRBC x10^3 (test code = 4685827356) See_Comment [Automated messa ge] The system which generated this result transmitted reference range: 10*3/?L. The reference range was not used to interpret this result as normal/abnormal. GRAN MAT (NEUT) % (test code = 770-8) 51.2 % IMM GRAN % (test code = 8561970162) 0.3 % LYMPH % (test code = 736-9) 32.9 % MONO % (test code = 5905-5) 13.6 % EOS % (test code = 713-8) 1.6 % BASO % (test code = 706-2) 0.4 % GRAN MAT x10^3(ANC) (test code = 0821679960) 5.98 10*3/uL 1.88-7.09 IMM GRAN x10^3 (test code = 5534741197) 0.04 10*3/uL 0.00-0.06 LYMPH x10^3 (test code = 731-0) 3.85 10*3/uL 1.32-3.29 H MONO x10^3 (test code = 742-7) 1.59 10*3/uL 0.33-0.92 H EOS x10^3 (test code = 711-2) 0.19 10*3/uL 0.03-0.39 BASO x10^3 (test code = 704-7) 0.05 10*3/uL 0.01-0.07 Lab Interpretation (test code = 03436-1) Abnormal [facility] Metabolic Panel (NA, K, CL, CO2, GLUCOSE, BUN, CREATININE, CA)2024-12-25 12:04:09* Test Item Value Reference Range Interpretation Comme nts NA (test code = 9617625244) 137 mmol/L 135-145 K (test code = 6136620766) 3.1 mmol/L 3.5-5.0 L CL (test code = 5918890177) 104 mmol/L 98-108 CO2 TOTAL (test code = 1803179439) 29 mmol/L 23-31 AGAP (test code = 6300857794) 4 2-16 BUN (test code = 5105784278) 11 mg/dL 7-23 GLUCOSE (test code = 9884968785) 110 mg/dL 70-110 CREATININE (test code = 2160-0) 0.59 mg/dL 0.50-1.04 CALCIUM (test code = 0266683126) 7.6 mg/dL 8.6-10.6 L eGFR (test code = 68972-5) 96.5 mL/min/1.73m2 CKD-EPI eGFR (2020). Assuming creatinine has been stable day-to-day for at least three months, the eGFR indicates Category G1 (>= 90 mL/min/1.73 m2) Lab Interpretation (test code = 03790-7) Abnormal [facility] Metabolic Panel (NA, K, CL, CO2, GLUCOSE, BUN, CREATININE, CA)2024-12-25 12:04:09* Test Item Value Reference Range Interpretation Comme nts NA (test code = 9381031330) 137 mmol/L 135-145 K (test code = 4170972366) 3.1 mmol/L 3.5-5.0 L CL (test code = 9150125920) 104 mmol/L 98-108 CO2 TOTAL (test code = 8212443976) 29 mmol/L 23-31 AGAP (test code = 4430865647) 4 2-16 BUN (test code = 5525051520) 11 mg/dL 7-23 GLUCOSE (test code = 5757699508) 110 mg/dL 70-110 CREATININE (test code = 2160-0) 0.59 mg/dL 0.50-1.04 CALCIUM (test code = 7692584215) 7.6 mg/dL 8.6-10.6 L eGFR (test code = 02265-7) 96.5 mL/min/1.73m2 CKD-EPI eGFR (2020). Assuming creatinine has been stable day-to-day for at least three months, the eGFR indicates Category G1 (>= 90 mL/min/1.73 m2) Lab Interpretation (test code = 15245-6) Abnormal [facility] Metabolic Panel (NA, K, CL, CO2, GLUCOSE, BUN, CREATININE, CA)2024-12-25 12:04:09* Test Item Value Reference Range Interpretation Comme nts NA (test code = 3745734827) 137 mmol/L 135-145 K (test code = 4615681166) 3.1 mmol/L 3.5-5.0 L CL (test code = 2200342771) 104 mmol/L 98-108 CO2 TOTAL (test code = 0225280538) 29 mmol/L 23-31 AGAP (test code = 7418316580) 4 2-16 BUN (test code = 1669815940) 11 mg/dL 7-23 GLUCOSE (test code = 0684044233) 110 mg/dL 70-110 CREATININE (test code = 2160-0) 0.59 mg/dL 0.50-1.04 CALCIUM (test code = 5663034273) 7.6 mg/dL 8.6-10.6 L eGFR (test code = 16516-2) 96.5 mL/min/1.73m2 CKD-EPI eGFR (2020). Assuming creatinine has been stable day-to-day for at least three months, the eGFR indicates Category G1 (>= 90 mL/min/1.73 m2) Lab Interpretation (test code = 69403-0) [facility] Iews3242-93-92 10:14:41* Test Item Value Reference Range Interpretation Comme nts WBC (test code = 6690-2) 13.25 4.30-11.10 H RBC (test code = 789-8) 2.22 3.93-5.25 L HGB (test code = 718-7) 6.4 g/dL 11.6-15.0 L HCT (test code = 4544-3) 20.4 % 35.7-45.2 L MCV (test code = 787-2) 91.9 fL 80.6-95.5 MCH (test code = 785-6) 28.8 pg 25.9-32.8 MCHC (test code = 786-4) 31.4 g/dL 31.6-35.1 L RDW-SD (test code = 52516-3) 48.4 fL 39.0-49.9 RDW-CV (test code = 788-0) 14.4 % 12.0-15.5 PLT (test code = 777-3) 178 166-358 MPV (test code = 60971-1) 9.6 fL 9.5-12.9 NRBC/100 WBC (test code = 8828957920) 0.0 0.0-10.0 NRBC x10^3 (test code = 4793194402) See_Comment [Automated messa ge] The system which generated this result transmitted reference range: 10*3/?L. The reference range was not used to interpret this result as normal/abnormal. GRAN MAT (NEUT) % (test code = 770-8) 55.2 % IMM GRAN % (test code = 9027524969) 0.50 % LYMPH % (test code = 736-9) 29.4 % MONO % (test code = 5905-5) 13.0 % EOS % (test code = 713-8) 1.4 % BASO % (test code = 706-2) 0.5 % GRAN MAT x10^3(ANC) (test code = 2302312852) 7.32 10*3/uL 1.88-7.09 H IMM GRAN x10^3 (test code = 6401388166) 0.07 10*3/uL 0.00-0.06 H LYMPH x10^3 (test code = 731-0) 3.89 10*3/uL 1.32-3.29 H MONO x10^3 (test code = 742-7) 1.72 10*3/uL 0.33-0.92 H EOS x10^3 (test code = 711-2) 0.18 10*3/uL 0.03-0.39 BASO x10^3 (test code = 704-7) 0.07 10*3/uL 0.01-0.07 Lab Interpretation (test code = 02645-7) Abnormal [facility] with [id number] 10:14:41* Test Item Value Reference Range Interpretation Comme nts WBC (test code = 6690-2) 13.25 4.30-11.10 H RBC (test code = 789-8) 2.22 3.93-5.25 L HGB (test code = 718-7) 6.4 g/dL 11.6-15.0 L HCT (test code = 4544-3) 20.4 % 35.7-45.2 L MCV (test code = 787-2) 91.9 fL 80.6-95.5 MCH (test code = 785-6) 28.8 pg 25.9-32.8 MCHC (test code = 786-4) 31.4 g/dL 31.6-35.1 L RDW-SD (test code = 30060-6) 48.4 fL 39.0-49.9 RDW-CV (test code = 788-0) 14.4 % 12.0-15.5 PLT (test code = 777-3) 178 166-358 MPV (test code = 05532-3) 9.6 fL 9.5-12.9 NRBC/100 WBC (test code = 4558474597) 0 0.0-10.0 NRBC x10^3 (test code = 9699992800) See_Comment [Automated messa ge] The system which generated this result transmitted reference range: 10*3/?L. The reference range was not used to interpret this result as normal/abnormal. GRAN MAT (NEUT) % (test code = 770-8) 55.2 % IMM GRAN % (test code = 3576722727) 0.5 % LYMPH % (test code = 736-9) 29.4 % MONO % (test code = 5905-5) 13 % EOS % (test code = 713-8) 1.4 % BASO % (test code = 706-2) 0.5 % GRAN MAT x10^3(ANC) (test code = 3865508845) 7.32 10*3/uL 1.88-7.09 H IMM GRAN x10^3 (test code = 8608754908) 0.07 10*3/uL 0.00-0.06 H LYMPH x10^3 (test code = 731-0) 3.89 10*3/uL 1.32-3.29 H MONO x10^3 (test code = 742-7) 1.72 10*3/uL 0.33-0.92 H EOS x10^3 (test code = 711-2) 0.18 10*3/uL 0.03-0.39 BASO x10^3 (test code = 704-7) 0.07 10*3/uL 0.01-0.07 Lab Interpretation (test code = 35307-0) Abnormal [facility] with [id number] 10:14:41* Test Item Value Reference Range Interpretation Comme nts WBC (test code = 6690-2) 13.25 4.30-11.10 H RBC (test code = 789-8) 2.22 3.93-5.25 L HGB (test code = 718-7) 6.4 g/dL 11.6-15.0 L HCT (test code = 4544-3) 20.4 % 35.7-45.2 L MCV (test code = 787-2) 91.9 fL 80.6-95.5 MCH (test code = 785-6) 28.8 pg 25.9-32.8 MCHC (test code = 786-4) 31.4 g/dL 31.6-35.1 L RDW-SD (test code = 43937-8) 48.4 fL 39.0-49.9 RDW-CV (test code = 788-0) 14.4 % 12.0-15.5 PLT (test code = 777-3) 178 166-358 MPV (test code = 59132-0) 9.6 fL 9.5-12.9 NRBC/100 WBC (test code = 4025432625) 0 0.0-10.0 NRBC x10^3 (test code = 7610415673) See_Comment [Automated messa ge] The system which generated this result transmitted reference range: 10*3/?L. The reference range was not used to interpret this result as normal/abnormal. GRAN MAT (NEUT) % (test code = 770-8) 55.2 % IMM GRAN % (test code = 6591926307) 0.5 % LYMPH % (test code = 736-9) 29.4 % MONO % (test code = 5905-5) 13 % EOS % (test code = 713-8) 1.4 % BASO % (test code = 706-2) 0.5 % GRAN MAT x10^3(ANC) (test code = 1351569438) 7.32 10*3/uL 1.88-7.09 H IMM GRAN x10^3 (test code = 3139058865) 0.07 10*3/uL 0.00-0.06 H LYMPH x10^3 (test code = 731-0) 3.89 10*3/uL 1.32-3.29 H MONO x10^3 (test code = 742-7) 1.72 10*3/uL 0.33-0.92 H EOS x10^3 (test code = 711-2) 0.18 10*3/uL 0.03-0.39 BASO x10^3 (test code = 704-7) 0.07 10*3/uL 0.01-0.07 Lab Interpretation (test code = 97370-1) [facility] (NA, K, CL, CO2, GLUCOSE, BUN, CREATININE, CA)2024-12-25 09:44:24* Test Item Value Reference Range Interpretation Comme nts NA (test code = 4469558932) 135 mmol/L 135-145 K (test code = 2516099428) 3.2 mmol/L 3.5-5.0 L CL (test code = 4354415081) 105 mmol/L 98-108 CO2 TOTAL (test code = 3328598405) 29 mmol/L 23-31 AGAP (test code = 8555119070) 1 2-16 L BUN (test code = 4456501259) 11 mg/dL 7-23 GLUCOSE (test code = 2281630856) 125 mg/dL 70-110 H CREATININE (test code = 2160-0) 0.58 mg/dL 0.50-1.04 CALCIUM (test code = 1556732979) 7.6 mg/dL 8.6-10.6 L eGFR (test code = 41161-2) 96.9 mL/min/1.73m2 CKD-EPI eGFR (2020). Assuming creatinine has been stable day-to-day for at least three months, the eGFR indicates Category G1 (>= 90 mL/min/1.73 m2) Lab Interpretation (test code = 40472-3) [facility]* Test Item Value Reference Range Interpretation Comme nts MAGNESIUM (test code = 5961883246) 1.7 mg/dL 1.7-2.4 Lab Interpretation (test cod e = 19354-0) [facility] 09:44:24* Test Item Value Reference Range Interpretation Comme nts PHOSPHORUS (test code = 1868232552) 3.2 mg/dL 2.5-5.0 Lab Interpretation (test cod e = 51363-3) Normal [facility] Metabolic Panel (NA, K, CL, CO2, GLUCOSE, BUN, CREATININE, CA)2024-12-25 09:44:24* Test Item Value Reference Range Interpretation Comme nts NA (test code = 3148423839) 135 mmol/L 135-145 K (test code = 7459700493) 3.2 mmol/L 3.5-5.0 L CL (test code = 3003520331) 105 mmol/L 98-108 CO2 TOTAL (test code = 6671676590) 29 mmol/L 23-31 AGAP (test code = 1623445571) 1 2-16 L BUN (test code = 7282356915) 11 mg/dL 7-23 GLUCOSE (test code = 0076274355) 125 mg/dL 70-110 H CREATININE (test code = 2160-0) 0.58 mg/dL 0.50-1.04 CALCIUM (test code = 8529105114) 7.6 mg/dL 8.6-10.6 L eGFR (test code = 83636-9) 96.9 mL/min/1.73m2 CKD-EPI eGFR (2020). Assuming creatinine has been stable day-to-day for at least three months, the eGFR indicates Category G1 (>= 90 mL/min/1.73 m2) Lab Interpretation (test code = 40075-6) [facility] 09:44:24* Test Item Value Reference Range Interpretation Comme nts MAGNESIUM (test code = 4356137871) 1.7 mg/dL 1.7-2.4 Lab Interpretation (test cod e = 89224-5) [facility] 09:44:24* Test Item Value Reference Range Interpretation Comme nts PHOSPHORUS (test code = 9623406735) 3.2 mg/dL 2.5-5.0 Lab Interpretation (test cod e = 39816-1) Normal [facility] Metabolic Panel (NA, K, CL, CO2, GLUCOSE, BUN, CREATININE, CA)2024-12-25 09:44:24* Test Item Value Reference Range Interpretation Comme nts NA (test code = 0873199545) 135 mmol/L 135-145 K (test code = 8650782979) 3.2 mmol/L 3.5-5.0 L CL (test code = 2146890690) 105 mmol/L 98-108 CO2 TOTAL (test code = 1801917444) 29 mmol/L 23-31 AGAP (test code = 4898030575) 1 2-16 L BUN (test code = 4276950253) 11 mg/dL 7-23 GLUCOSE (test code = 9847999519) 125 mg/dL 70-110 H CREATININE (test code = 2160-0) 0.58 mg/dL 0.50-1.04 CALCIUM (test code = 0349711491) 7.6 mg/dL 8.6-10.6 L eGFR (test code = 44747-3) 96.9 mL/min/1.73m2 CKD-EPI eGFR (2020). Assuming creatinine has been stable day-to-day for at least three months, the eGFR indicates Category G1 (>= 90 mL/min/1.73 m2) Lab Interpretation (test code = 10261-0) [facility] 09:44:24* Test Item Value Reference Range Interpretation Comme nts MAGNESIUM (test code = 2397830050) 1.7 mg/dL 1.7-2.4 Lab Interpretation (test cod e = 84980-9) [facility] 09:44:24* Test Item Value Reference Range Interpretation Comme nts PHOSPHORUS (test code = 8962097576) 3.2 mg/dL 2.5-5.0 Lab Interpretation (test cod e = 34498-5) [facility] [id number] 23:46:43* Test Item Value Reference Range Interpretation Comme nts WBC (test code = 6690-2) 16.21 4.30-11.10 H RBC (test code = 789-8) 3.78 3.93-5.25 L HGB (test code = 718-7) 10.9 g/dL 11.6-15.0 L HCT (test code = 4544-3) 33.0 % 35.7-45.2 L MCV (test code = 787-2) 87.3 fL 80.6-95.5 MCH (test code = 785-6) 28.8 pg 25.9-32.8 MCHC (test code = 786-4) 33.0 g/dL 31.6-35.1 RDW-SD (test code = 16459-3) 45.2 fL 39.0-49.9 RDW-CV (test code = 788-0) 14.3 % 12.0-15.5 PLT (test code = 777-3) 264 166-358 MPV (test code = 48073-7) 9.6 fL 9.5-12.9 NRBC/100 WBC (test code = 9882291286) 0.0 0.0-10.0 NRBC x10^3 (test code = 9063313911) See_Comment [Automated message] The system which generated this result transmitted reference range: 10*3/?L. The reference range was not used to interpret this result as normal/abnormal. GRAN MAT (NEUT) % (test code = 770-8) 62.7 % IMM GRAN % (test code = 1063815975) 0.40 % LYMPH % (test code = 736-9) 27.8 % MONO % (test code = 5905-5) 7.7 % EOS % (test code = 713-8) 1.0 % BASO % (test code = 706-2) 0.4 % GRAN MAT x10^3(ANC) (test code = 1244705728) 10.17 10*3/uL 1.88-7.09 H IMM GRAN x10^3 (test code = 3585755580) 0.07 10*3/uL 0.00-0.06 H LYMPH x10^3 (test code = 731-0) 4.50 10*3/uL 1.32-3.29 H MONO x10^3 (test code = 742-7) 1.25 10*3/uL 0.33-0.92 H EOS x10^3 (test code = 711-2) 0.16 10*3/uL 0.03-0.39 BASO x10^3 (test code = 704-7) 0.06 10*3/uL 0.01-0.07 REACT LYMPHS (test code = 1521142261) Rare Lab Interpretation (test code = 83434-0) Abnormal [facility] with [id number] 23:46:43* Test Item Value Reference Range Interpretation Comme nts WBC (test code = 6690-2) 16.21 4.30-11.10 H RBC (test code = 789-8) 3.78 3.93-5.25 L HGB (test code = 718-7) 10.9 g/dL 11.6-15.0 L HCT (test code = 4544-3) 33 % 35.7-45.2 L MCV (test code = 787-2) 87.3 fL 80.6-95.5 MCH (test code = 785-6) 28.8 pg 25.9-32.8 MCHC (test code = 786-4) 33 g/dL 31.6-35.1 RDW-SD (test code = 80244-7) 45.2 fL 39.0-49.9 RDW-CV (test code = 788-0) 14.3 % 12.0-15.5 PLT (test code = 777-3) 264 166-358 MPV (test code = 40491-0) 9.6 fL 9.5-12.9 NRBC/100 WBC (test code = 5387371870) 0 0.0-10.0 NRBC x10^3 (test code = 9992775476) See_Comment [Automated message] The system which generated this result transmitted reference range: 10*3/?L. The reference range was not used to interpret this result as normal/abnormal. GRAN MAT (NEUT) % (test code = 770-8) 62.7 % IMM GRAN % (test code = 1622948693) 0.4 % LYMPH % (test code = 736-9) 27.8 % MONO % (test code = 5905-5) 7.7 % EOS % (test code = 713-8) 1 % BASO % (test code = 706-2) 0.4 % GRAN MAT x10^3(ANC) (test code = 7355406077) 10.17 10*3/uL 1.88-7.09 H IMM GRAN x10^3 (test code = 1602535558) 0.07 10*3/uL 0.00-0.06 H LYMPH x10^3 (test code = 731-0) 4.5 10*3/uL 1.32-3.29 H MONO x10^3 (test code = 742-7) 1.25 10*3/uL 0.33-0.92 H EOS x10^3 (test code = 711-2) 0.16 10*3/uL 0.03-0.39 BASO x10^3 (test code = 704-7) 0.06 10*3/uL 0.01-0.07 REACT LYMPHS (test code = 7609334622) Rare Lab Interpretation (test code = 62952-2) Abnormal [facility] with [id number] 23:46:43* Test Item Value Reference Range Interpretation Comme nts WBC (test code = 6690-2) 16.21 4.30-11.10 H RBC (test code = 789-8) 3.78 3.93-5.25 L HGB (test code = 718-7) 10.9 g/dL 11.6-15.0 L HCT (test code = 4544-3) 33 % 35.7-45.2 L MCV (test code = 787-2) 87.3 fL 80.6-95.5 MCH (test code = 785-6) 28.8 pg 25.9-32.8 MCHC (test code = 786-4) 33 g/dL 31.6-35.1 RDW-SD (test code = 55587-8) 45.2 fL 39.0-49.9 RDW-CV (test code = 788-0) 14.3 % 12.0-15.5 PLT (test code = 777-3) 264 166-358 MPV (test code = 98394-3) 9.6 fL 9.5-12.9 NRBC/100 WBC (test code = 4445092064) 0 0.0-10.0 NRBC x10^3 (test code = 3020472431) See_Comment [Automated message] The system which generated this result transmitted reference range: 10*3/?L. The reference range was not used to interpret this result as normal/abnormal. GRAN MAT (NEUT) % (test code = 770-8) 62.7 % IMM GRAN % (test code = 7968689319) 0.4 % LYMPH % (test code = 736-9) 27.8 % MONO % (test code = 5905-5) 7.7 % EOS % (test code = 713-8) 1 % BASO % (test code = 706-2) 0.4 % GRAN MAT x10^3(ANC) (test code = 1915763401) 10.17 10*3/uL 1.88-7.09 H IMM GRAN x10^3 (test code = 1107605891) 0.07 10*3/uL 0.00-0.06 H LYMPH x10^3 (test code = 731-0) 4.5 10*3/uL 1.32-3.29 H MONO x10^3 (test code = 742-7) 1.25 10*3/uL 0.33-0.92 H EOS x10^3 (test code = 711-2) 0.16 10*3/uL 0.03-0.39 BASO x10^3 (test code = 704-7) 0.06 10*3/uL 0.01-0.07 REACT LYMPHS (test code = 0960832867) Rare Lab Interpretation (test code = 70041-2) Abnormal [facility] Metabolic Panel (NA, K, CL, CO2, GLUCOSE, BUN, CREATININE, CA)2024-12-23 23:33:36* Test Item Value Reference Range Interpretation Comme nts NA (test code = 9282018397) 138 mmol/L 135-145 K (test code = 7205252854) 3.5 mmol/L 3.5-5.0 Slight hemolysis CL (test code = 7110795636) 105 mmol/L 98-108 CO2 TOTAL (test code = 1514793732) 26 mmol/L 23-31 AGAP (test code = 6683056479) 7 2-16 BUN (test code = 1939251874) 10 mg/dL 7-23 Slight hemolysis GLUCOSE (test code = 6913513960) 100 mg/dL 70-110 CREATININE (test code = 2160-0) 0.54 mg/dL 0.50-1.04 CALCIUM (test code = 9486528807) 8.4 mg/dL 8.6-10.6 L eGFR (test code = 30675-4) 98.6 mL/min/1.73m2 CKD-EPI eGFR (2020). Assuming creatinine has been stable day-to-day for at least three months, the eGFR indicates Category G1 (>= 90 mL/min/1.73 m2) Lab Interpretation (test code = 54998-3) Abnormal [facility] Metabolic Panel (NA, K, CL, CO2, GLUCOSE, BUN, CREATININE, CA)2024-12-23 23:33:36* Test Item Value Reference Range Interpretation Comme nts NA (test code = 5107125305) 138 mmol/L 135-145 K (test code = 7134039488) 3.5 mmol/L 3.5-5.0 Slight hemolysis CL (test code = 6352112731) 105 mmol/L 98-108 CO2 TOTAL (test code = 3902181512) 26 mmol/L 23-31 AGAP (test code = 1620197939) 7 2-16 BUN (test code = 0669867883) 10 mg/dL 7-23 Slight hemolysis GLUCOSE (test code = 3600139681) 100 mg/dL 70-110 CREATININE (test code = 2160-0) 0.54 mg/dL 0.50-1.04 CALCIUM (test code = 5537421100) 8.4 mg/dL 8.6-10.6 L eGFR (test code = 23151-4) 98.6 mL/min/1.73m2 CKD-EPI eGFR (2020). Assuming creatinine has been stable day-to-day for at least three months, the eGFR indicates Category G1 (>= 90 mL/min/1.73 m2) Lab Interpretation (test code = 88773-8) Abnormal [facility] Metabolic Panel (NA, K, CL, CO2, GLUCOSE, BUN, CREATININE, CA)2024-12-23 23:33:36* Test Item Value Reference Range Interpretation Comme nts NA (test code = 2693104209) 138 mmol/L 135-145 K (test code = 6138265203) 3.5 mmol/L 3.5-5.0 Slight hemolysis CL (test code = 6305619750) 105 mmol/L 98-108 CO2 TOTAL (test code = 0115489960) 26 mmol/L 23-31 AGAP (test code = 5598737926) 7 2-16 BUN (test code = 1287298903) 10 mg/dL 7-23 Slight hemolysis GLUCOSE (test code = 8998426410) 100 mg/dL 70-110 CREATININE (test code = 2160-0) 0.54 mg/dL 0.50-1.04 CALCIUM (test code = 2887966504) 8.4 mg/dL 8.6-10.6 L eGFR (test code = 95497-9) 98.6 mL/min/1.73m2 CKD-EPI eGFR (2020). Assuming creatinine has been stable day-to-day for at least three months, the eGFR indicates Category G1 (>= 90 mL/min/1.73 m2) Lab Interpretation (test code = 04497-7) Abnormal [facility] GLUCOSE (AUTOMATED)2024-12-23 22:59:37* Test Item Value Reference Range Interpretation Comme nts POCT GLU (test code = 1975357046) 110 mg/dL 70-110 Lab Interpretation (test cod e = 57027-4) Normal [facility] GLUCOSE (AUTOMATED)2024-12-23 22:59:37* Test Item Value Reference Range Interpretation Comme nts POCT GLU (test code = 5447137228) 110 mg/dL 70-110 Lab Interpretation (test cod e = 30129-3) Normal [facility] GLUCOSE (AUTOMATED)2024-12-23 22:59:37* Test Item Value Reference Range Interpretation Comme nts POCT GLU (test code = 7287631724) 110 mg/dL 70-110 Lab Interpretation (test cod e = 92675-7) Normal [facility] Time OR(non-reportable)2024-12-23 22:46:26 These images do not require a Radiology diagnostic report.[facility] Time OR(non-reportable)2024-12-23 22:46:26These images do not require a Radiology diagnostic report.[facility] Time OR(non-reportable)2024-12-23 22:46:26These images do not require a Radiology diagnostic report.[facility] GLUCOSE (AUTOMATED) 2024-12-23 17:14:34* Test Item Value Reference Range Interpretation Comme nts POCT GLU (test code = 8263105672) 114 mg/dL 70-110 H Lab Interpretation (test cod e = 49905-2) Abnormal [facility] GLUCOSE (AUTOMATED)2024-12-23 17:14:34* Test Item Value Reference Range Interpretation Comme nts POCT GLU (test code = 0369909803) 114 mg/dL 70-110 H Lab Interpretation (test cod e = 48841-3) Abnormal [facility] GLUCOSE (AUTOMATED)2024-12-23 17:14:34* Test Item Value Reference Range Interpretation Comme nts POCT GLU (test code = 0062435544) 114 mg/dL 70-110 H Lab Interpretation (test cod e = 37694-3) [facility] [id number] 19:10:27* Test Item Value Reference Range Interpretation Comme nts Case Report (test code = 0215037649) Surgical Pathology ?Case: [id number] ? Authorizing Provider: ?Luis Jay MD ? ? ?Collected: ? 11/23/2024 0831 ?Ordering Location: ? ? [facility] Intensive Care Unit ? ?Received: ?11/23/2024 1431 ?Pathologist: ? Annie Braxton MD PhD ?Specimen: ? ?FOOT, RIGHT, forefoot ? Final Diagnosis (test code = 8394352549) g1eqwPXzBFJei9onQAYocG FuZzEwMzNcZnRuYmpcdWMx LXelinLaYSueaEjhIAS5CE MvFY2cqIlypCe7vUvtLZDu xqP5rVZaUOopq0yvPWC9t4 fnkzfaQBVbJJrrIg0vyHTt nLseBkTqUTZeWLm3iQ43XJ XvrJ9xjEZcDKs4MKUytCPp gnFwNoRiSVIzhMInrGM1WT SgFQ2vphqbXMxcWVopRNTw agF3VZDbgZNoI6MxMJIqAG 3itlbjQWB5TLooXDNoGFM1 ZeRcZIZfh0Goaon6RnVxrW FyZFxwbGFpblxmczIwXHBh emTZTfSFM28IRFLXNPyISY mcEi5WPPLZD7SiHIRPUE6K TUVUQVRBUlNBTCBBTVBVVE QKLX9DTpCtlVBeBNBhHBVi QKbWKclTNR6GVFsAOZkrEJ LSCVTrS8CHUN6SMYJCPXTX L7AmLNYaXGpRAJWQVNGCI8 HLRZGAXPOPPAZYA55fA3kZ SMxnTDWdGUUiVI7yEgNAVD LDV9PHYNnJLwZRXNNMRA2J FJ9CS3XYNOTAZIJCYyLNR8 RDZP6NXKaILPvAVOGgqlgi HUDnHOSkyp23HVM7GcNng1 X2UODoNhVjDNVwVA1ltNqr PPQdNN2xDSJyT7cdzE0ose w1EpQcQIMcOjZ1UZKwtkE5 Una9JMQnUJodj9yki1LtG6 PdzAQkxKt3t5czNELbNiZ5 dIBvJWmbQ0mnstDogWEmLC YpUDf7tOyaZuOfDJVrg9ch cyBcZmNoYXJzZXQwIENhbG onbyo1jD20FKVspN7atIJd FCesplXrMsC0TVsxFQDaTh H1DPTwlFWlDWLpQ0wkTFKa CSqjZWPzDZotvINjNLB2dM oet0M2kRIgeQBuxSwqDzRa YbNaNZKAj4VyFDf4oUwkF0 EmQTPhBmY6sNQmTXUdEHgf OWPbTYPxniC6dR90OCoixr D7rQExm6Wfb57xj198bC5l mVWpGOH7JLLnOGOagURnYO ImNFA9WLMgfEIwA7uiTCJq AX3zeutnWSemFXbfNHMdlG K7WDMmdFFyB5QxFQWbDZjp AMEoddu5FtHaWe5koILtaJ ocHQmqq5teb5smjRVdZgr9 OWMqZzKyOgupMAbsz0Yxs7 msWHVbzc5fNNF1uBPmrRcl g6F9dIRcAUNfrIEhhjUhBY VrDvU9SYlwEB9nag24UFSv VTI7cf3mdIRqtXedvhHwqI ZmLZeiM7JqWRRyo362IDXl K9GiXGGfs5G2vhWlJjSmHW FlsPL3hgX4JEGwDQs5kTJd muN3jeXstNYpE9tjbT6aSR RnCK3hympph4zdBLjzVFer PMNxpPU5esR1MOMroIHfY2 CnyB8dPNGcPFzcPPSykve2 HgRxKe1vuCLofRxzNCqbKz twYWdlXHBnbmNvbnRccGdu ZGVjXHBsYWluXHBsYWluXG QvPXGwJdKohPabfPywmE8w IbPuWaJhBCwvBB8dMJEwK7 mtuDSdRSVxVFJyX6uzLiTa bW4nvEthXJwxQeYvWpOnNS xwYXIgSSBoYXZlIHBlcnNv qhVhfScspzZ2zVO9ZQWiRI pbZRPrXKMiwWPnsa8whZco YBKiKL5xPKRwdgMqWYqbgN rmVGdzMVW9YUWlvRTdlNPb bWFkZSBieSByZXNpZGVudH YlEQKhvGopd9Ydm9CdrJT2 iS9ak0jcy8WbOCCuqOU0TL 28ngM2cO6dOIQySW3uMJBl JV0puQRtsRVvJGGzc07xfE hpcyByZXBvcnQuXHBsYWlu XGYyXGZzMjhcbGFuZzEwMz NcaGljaFxmMlxkYmNoXGYy QGtxM9gkSmUjGkDnRXmwFG J9fQ== Clinical Information (test code = 0173600963) Right foot necrosis Gross Description (test code = 0455696703) j7xyeJJdFCEsxCELAMX3LD ZcKG2nhCmgcHg1fKkkDITh lsN8iCFgRNoes2xzPNI5j1 pbejWMRjjhXIIgBD6hZNjs HMGpIF5tQsEsIXMvOyOlVV BhcGVydzEyMjQwXHBhcGVy jAO2KFTsKZ9iblzlFVjfIN rgHSBwyxT3INYgwUIrR2Cx QEYxCF1oxzyuAFP8PLBPGt rlHc7inGSjjIebFoMrZmKi RWSsYYLkCMVvq9awmtWGul pyoMr8qS3NKQCcC4DcYV9D f8glKNOdgCMhMFG8THsro7 jsKMsuPTI0FSYePWDsNRNg QJ4THjCsFOT9ULIfKZL9Cm J6LSp8FXHLUGFfWIQ2XFIm RQS3NWx0OYBcNQ5dCXcakQ JsNOoxNqzbTWtkP255DLeg FOCqB2MbL7UfWZhdBxXtCL cdFGUcXCTnGLlzNUKkQ1CL GLQbXFw8KRC5KDtuQXz6IL j2UZ7BWtPtSIVeEXQ6Erp9 DaBtAQa5OWmiAN5REWOrPN T6UMbhXvuxVNThZlsqROl4 IDIgXFxzcyAzIFxcZmwgXF ncL24okFOgYMCVJfsgoQWe blxmczIwIFNQRUNJTUVOIE GikLDcQ3rmMaUgGfkcWPEc DQpccGFyZCANClxwbGFpbl xsdHJjaFxmczIyXGVwaWNO CSU0FM4nWXIBMuhewGIrQX BiTDiHwQPfhI8ifeQCPJfx YFZmV2BnclCzPMteFKJhql 1hbGluIGxhYmVsbGVkIHdp dGggdGhlIHBhdGllbnRcJ0 Z3agOeWH1jRHUJNRDxuS4s XPBxGANgOq4mhBrmhyxnbS LzKMRcvrAve108CIzBVBhs DeAwMA8nVZCobxEcj7BkZJ 2mPZTtS5f1HUHpUP9xfMZ8 BKDktgFcyMQurLC7jTE4gK 6eJTl0QcZefAP4LzVgxVI1 NbHvM65oWDU1oWEiVCMaYW A6KIUzGCVfqwFeuHDlNLTe aP1oTPNdBCZgOOFdNKUvQj ylBQerJB9sFRUyYOWlNXW1 IGNsZWFubHkgdHJhbnNlY3 FmMGHzj27sXVYgg3QynXit xpAfIGYlsI3oXcJUlOAtPi 4nYCRlJMYepS6oRw8tBKEj KBA9FKtqVDLmnzNgDEaduU IznzNbR7KhKGSsTP6bSQBn BKRbNWpjGOZhCB4bMX7kvQ BcTBPstiwdn388ykRtEOPg rWsqJUWurQR0ZTCzt73ra1 j9KOMxIxE0q4HnDJMsKA8p XRTcJRXsNQQ7OQEcFEEjiM duFVQmWVUsvIYhmh9mGWKv INZnfK3fJHX8KALaqT8eNM 0uLLZtZfVtgGcby2NdZQRx q1XhsKzjsxImBDJtcQ9lOD 5fNADpZGYcbBLkqs7uYWKa RACizP1wDJH0ETNpaiUoee ZqFBJ1wE6jLG3exfdngh6n JHWaMGSnu5mxQUzhGHMcn7 1gizXlDSFrVUBhNCLqb9Vb ZPOutCIiNNTwH3SoYJLtFZ SlxlI7LXQvBFCpWYjwf9sz gxLdQA2cQOshKU70VYBpMF UcfgE8sRPzMC6uu8WvXADv pDZwdSAiVmH7c9OcFf3fWS MfMZLuc08hHCJhSPFuaJlw uddmpNfbSJmma6dvygQkce ShxUOnfrudmKZqBY8adQFr lFacenPlaNJrDPEpRLN1EQ 0naEBztJ39FYKwTZXrfWzt sWHeeKZnUH8fvxHzWZqeOz 4lRMBegWIfq4SvbJR6bBUn SZUbW8Kjt81zWXEzBLVmwM AspBJ7OGTogY8vQGXmCKqh AJKigWpxq9dyFmEoCRAkeD FhXqhaZYZfu66qg3TfXPIn QTguXHBhciANClxwYXIgDQ rFEPT6jJ2zWWGlALY6XAJp jiXLYbDxOlKKu8fcKR9yxo yovvUjxF9mWPI6JJYrKZfl a8gguzllES0gOqNjJBigOX KmWFeWBsxyRWH7IHJljjJz cZWkFGWeb4ItwEbkpaFsCY YajG4pIGDkCGGyJ4DskUTl AH8UCQC3WY8slVM4CPUoTB qoVazcwmYiLKG0pO4xCI4m jamywxhnDK4pYmNnLUodOV PbWLcYEOrmOSU9RJOghxNe cQLoIHGzz8UvcMwjnbMlSG YgyG2jZIWmCIXiK5GqtZVq MY1MQQE4BW4atJZ8PBMyAV cgADOvREKyV8Tcy98xdZGp K2szCNKnxcTuEVCcGZMaco SJJzA4VhUOUAEgsIWxe8Op DQQtrrLcRVT4kR9tFN8ftw zxkriuTU6rTnNvQWzsYWSs DQpBNzogUHJldmlvdXMgYW 0dxRKdvUgqjwFhnUYxBF3q OLWkTALzZWPwMPQlRN2ebF B6qVKcNZMfnkQKFdS1MaRY SPYdm75lVW0mOTVuWDQpbX uxjzuuSx5xFCPgdv6yFWRq ZSAzLCByZXByZXNlbnRhdG b8TLupVWGnHJcpkMKaBV3Y GeXcfGPoNRZXzVrhurK2VI BQQSAoQVNDUClcdGFiIFxw qw76RDM8b5owlZNiXRdiVx neqTEhpcD7CBqYZCUMRLgD TeSuDJ2lMRzMCnmNUOhNBe nnTETqSWW1FEcODPHFqIC2 sIixdIp2t7mrtBFvx2d2CZ bwKTJ9gMEaOspcWrZlMKOo MYuhE1vyOejqfWC6OPlcCw bwwC7gwRGUWFPOTagOFzhy noAdTK0EFS5UAJ5WtQEbIE OmZDudwAJIZG19DHh4uDX8 cH84BGNnOAGrzTJqTNhbH4 20CYGjDGocOZs1dpZpOPIq OmFkcNWnXB2PYCWaVbKdNT UgC7oiLXCkSX8PASUwkGEC IIZ0DX8uHCjtODTgX6XkX4 BlxiK9m4semZhnc2HfjVOl IE8waORaGO2NRYTwefRyDE p9 Disclaimer (test code = [id number]) a2vxmHGaBXNhv0poMFRohM FuZzEwMzNcZnRuYmpcdWMx WPtjjqBkJMskr6QoS3VfSu AwMFxhbnNpXGRlZmxhbmcx MWMsCNM7yoRtWLOdWGxvBU FiCAxdDc5yzHPpwQiaYsOn FNDeu9kxumKKLLgjBrMrF4 83OEAsAZxcl0efg2GbMTPy lVInu4H7COKBjkgawRc7lS bkP90il0X1GepsV7svMHXc LSJkY9UeCN8fVIQnEws7RN C0NZV0TEHlKPKzO0HnSE0h IKNipNTaBZn9b4mweOixYG HlPXP0e0boIXtpyrGjZK6a ph7lnPj8m1fatkJgABIyTV IglEAFUWGxR3SqzTfmHj1f iTp6hHmyPrcbFTI8Vwi4BN 8xwe43zza3mBqjTOKwiwqo XpB3XFjrACCnskixDOv5NB brYEEcjTE4GQJstQQhU5Og INKdRY0ipqf3KZZ7OFniTI LvInP6QNQieGEwQIRntZhp BFwip246LKZ9QxYwEF4gA4 Hpk4K3bE8riWQtWBUzrHYn SzSsTGEmua5tuYIfRCnwf2 LaLBJ4seH5cFRxqFCzCEXj DS28Ehgvv1YzCrtuv8QbJ8 7riST4GRnxv8ywWC8gOoU7 pcZcFUmzv3drjD5xAgT1HT ezQH4aPY0wHMWteL7pcfpj XHBnYnJkcmhlYWRccGdicm HcVy5paOyxCCY9RNkcI8pc hU1jOtD0KBuaQ0amtA2nYK z9WPkytBG4TEDmrS7xCL1z rdhim3jlVSmiRYuuHVCcbt L5yxQ3CTVuiUVeB8ExcO1w FOHuWM3ioztzq5adDNQ1GI wyQPYkJBJ6CwRhOVTjz3Et ahr1CgXyp1GprFPtBQsmQ3 2vo177TYLeydMvN7xjuKHy tiyjdWCjnxsrVZpsbiS0QJ GvyoXgj3GzKJLrOCW6HCmz RXhqoSMqPSQpxNirr1czF8 RscGFyXHBsYWluXGYxXGZz MjBcbGFuZzEwMzNcaGljaF sqRAxvOnSvKIIyIIicV1fn YpPlW7RlTEIfLsZeoBAhS2 ggVGhpcyByZXBvcnQgbWF5 ASrsV9g3EYKlwpZxsBu5us ZbQaYtXLPnDVX9ERsmcALv POKub5UbmuftkAJnZk8ibZ SsMUKeyE5kJDRhMQUuBFif WY4ymJv9LABDnYWlhIYyVl VJDWOnKU56sfKxEEPDbeyz l6L3SWccAVQnm6DywLTvS9 alh0TcRHVor19oUG3mz1Z2 s5ztDDO1ZC3om2TmNTHtcS XomCDoCZEwg5Irfkxlk4Uf HVKpzjAca9RuKPLfyfBlqX LxAHJrrdDqte4oyaMhOAJz JYZzI2AqibwjhYyjmwBnLE Hbqc8aowTaGJO4KMSBJVFq DHCwt9QgzO6dcELRJSU4iQ Cpzx1mysEWuUAtHSPfuh91 VAXjOP8fT6qwUKUlSFPrgc ZpdBNhu0IyLTPebJP7xPEq SV3WTtNKh89tELDgIFVCra RnYWEwaVgexWZ1zxJ4lK1g IChGREEpLlx+IFRoZSBGRE KpWI4ynwCyt8JnaiEsaYnh PIOtoOFsk8OmoDGyb9MteR qth4UjqCDrxZFoNV3nAODx clxwYXIgVVRNQiBMYWJvcm I3y2BnKIIrGIIgCGI7oXzg krh6CTShqJ1oODFcF9jfih mgSQatMUEeu6JvwE1qdEYX zMObx3XdxYEdtEJKlXSwMP 3fdkYhLYzVVZbCOEC7qiMc JQLma3YaNDhbF9haD98uvF pflHa1kHI3GZM3rF0kAxi+ IFxwYXJccGFyIEFwcHJvcH JkQPVgpKeqkpPeG6QspwVd gF9sqTWnysRfDE2tHK3uD9 J4lIPdACEbvfYql3pzQPgp dmUgYmVlbiByZXZpZXdlZC Zcb8XvTBdnUUG8IHellwSm bmNsdWRpbmcgSCZFLCBTcG ZcnZVmVXG5STjjmoTtorPi LY8hmK7swOgsoX6spBCxvE R5wxczNVKtVSOvbSphHHQh LJ4goYsgnV3hJmMdKkVxVA zfPG8sSLDpC0zsoMAoSTXy ECDbS4mkEsAxhP3zvHncTV xjZjJcZnMyMFxwYXJccGFy XHBsYWluXGYxXGZzMjBcbG FuZzEwMzNcaGljaFxmMVxk DmZrMHDxFEbfT7hzYrFyT9 DvNBIoZiHjhVRaI7vwNLpr RGD9STOfGP9mdQAuDI24oW Bbp4vdXIgigJznij8cK62k oFGyQUblfIapIYBax23hn2 RwTQHkvjYlhf9rAGCvfgJ2 kL3uGSDpsZcsCHXqpVYrRY Wyy4LhXPjhhJDxiqPpJQdc IEWrIWVfwXOtnmY0nnYfyx GnadHsFAXlcBllEKBnb1He RSIcCWqts2Bmht4kpKVeOA RrjiCGsSytbXRcaI3wF0Er OLObIHKuwy6uILDmwZ6zHC vlt7ZeeybbWJXjQBSwHXBc pgCrqc9cWUTngLYSPC6BDO kgePWkk8RupjYoS2aIHRS4 NUQwNjYwMjgxKSBleGNlcH BaRIVcyp26MFIlqT5qlWag AWHkbA0kfN4haHbhwA6dUq RsRhHzKJszGL1rYVKgW7si gCFaWCKmTPPwG5dzVfScqM 9jaFxmMVxjZjJcZnMyMFxw YXJ9fQ== Embedded Images (test code = [id number]) [facility] GLUCOSE (AUTOMATED)2024-11-23 15:15:28* Test Item Value Reference Range Interpretation Comme [facility] POCT GLU (test code = 8143073692) 96 mg/dL 70-110 Lab Interpretation (test cod e = 45597-9) Normal [facility] GLUCOSE (AUTOMATED)2024-11-23 15:15:28* Test Item Value Reference Range Interpretation Comme [facility] POCT GLU (test code = 0693418629) 96 mg/dL 70-110 Lab Interpretation (test cod e = 36606-5) [facility]00Parth Ocasio CRNA ? ? 11/23/2024 ?8:11 AMIntubationDate/Time: 11/23/2024 8:11 AMUrgency: elective Airway not difficult General Information and Staff Patient location during procedure: ORPerformed: resident/SCIENTIFIC EDITOR Performed by: Parth Ocasio CRNAAuthorized by: Robby Franklin MD ? Indications and Patient ConditionIndications for airway management: anesthesiaSpontaneous Ventilation: absentSedation level: deepPreoxygenated: yesPatient position: sniffingMILS maintained throughoutMask difficulty assessment: 0 - not attempted Final Airway DetailsFinal airway type: supraglottic airway Successful airway: Size 4Airway Seal Pressure (cm H2O): 20 Number of attempts at approach: 1Ventilation between attempts: noneNumber of other approaches attempted: 0 Additional CommentsEyes taped prior to placement, smooth, atraumatic, dentition and lips unchanged from pre-op.[facility] GLUCOSE (AUTOMATED)2024-11-23 13:23:29* Test Item Value Reference Range Interpretation Comme [facility] POCT GLU (test code = 2235263329) 92 mg/dL 70-110 Lab Interpretation (test cod e = 07552-0) Normal [facility] GLUCOSE (AUTOMATED)2024-11-23 13:23:29* Test Item Value Reference Range Interpretation Comme [facility] POCT GLU (test code = 2777123476) 92 mg/dL 70-110 Lab Interpretation (test cod e = 38009-3) Normal [facility] Metabolic Panel (NA, K, CL, CO2, GLUCOSE, BUN, CREATININE, CA)2024-11-22 23:23:24* Test Item Value Reference Range Interpretation Comme [facility] NA (test code = 0345454403) 143 mmol/L 135-145 K (test code = 0407298378) 2.8 mmol/L 3.5-5.0 LL CL (test code = 5232123572) 112 mmol/L 98-108 H CO2 TOTAL (test code = 1417511220) 25 mmol/L 23-31 AGAP (test code = 9012144154) 6 2-16 BUN (test code = 4259539013) 9 mg/dL 7-23 GLUCOSE (test code = 1319700437) 126 mg/dL 70-110 H CREATININE (test code = 2160-0) 0.98 mg/dL 0.50-1.04 CALCIUM (test code = 2970509510) 8.1 mg/dL 8.6-10.6 L eGFR (test code = 15729-7) 61.8 mL/min/1.73m2 CKD-EPI eGFR (2020). Assuming creatinine has been stable day-to-day for at least three months, the eGFR indicates Category G2 (60 - 89 mL/min/1.73 m2) Lab Interpretation (test code = 08203-7) Abnormal [facility] Metabolic Panel (NA, K, CL, CO2, GLUCOSE, BUN, CREATININE, CA)2024-11-22 23:23:24* Test Item Value Reference Range Interpretation Comme nts NA (test code = 4800183797) 143 mmol/L 135-145 K (test code = 0191120014) 2.8 mmol/L 3.5-5.0 LL CL (test code = 0805902607) 112 mmol/L 98-108 H CO2 TOTAL (test code = 6153299738) 25 mmol/L 23-31 AGAP (test code = 8689764797) 6 2-16 BUN (test code = 2189373604) 9 mg/dL 7-23 GLUCOSE (test code = 7378865372) 126 mg/dL 70-110 H CREATININE (test code = 2160-0) 0.98 mg/dL 0.50-1.04 CALCIUM (test code = 7356078703) 8.1 mg/dL 8.6-10.6 L eGFR (test code = 96200-5) 61.8 mL/min/1.73m2 CKD-EPI eGFR (2020). Assuming creatinine has been stable day-to-day for at least three months, the eGFR indicates Category G2 (60 - 89 mL/min/1.73 m2) Lab Interpretation (test code = 27514-2) Abnormal [facility] Metabolic Panel (NA, K, CL, CO2, GLUCOSE, BUN, CREATININE, CA)2024-11-22 15:06:37* Test Item Value Reference Range Interpretation Comme nts NA (test code = 2008578950) 145 mmol/L 135-145 K (test code = 8964067332) 2.5 mmol/L 3.5-5.0 LL CL (test code = 3049423065) 111 mmol/L 98-108 H CO2 TOTAL (test code = 6782343331) 27 mmol/L 23-31 AGAP (test code = 9062165967) 7 2-16 BUN (test code = 5303616455) 9 mg/dL 7-23 GLUCOSE (test code = 8273647569) 94 mg/dL 70-110 CREATININE (test code = 2160-0) 0.97 mg/dL 0.50-1.04 CALCIUM (test code = 3800072820) 8.1 mg/dL 8.6-10.6 L eGFR (test code = 33035-6) 62.6 mL/min/1.73m2 CKD-EPI eGFR (2020). Assuming creatinine has been stable day-to-day for at least three months, the eGFR indicates Category G2 (60 - 89 mL/min/1.73 m2) Lab Interpretation (test code = 74526-2) Abnormal [facility] Metabolic Panel (NA, K, CL, CO2, GLUCOSE, BUN, CREATININE, CA)2024-11-22 15:06:37* Test Item Value Reference Range Interpretation Comme nts NA (test code = 3706721244) 145 mmol/L 135-145 K (test code = 3202844827) 2.5 mmol/L 3.5-5.0 LL CL (test code = 7019070492) 111 mmol/L 98-108 H CO2 TOTAL (test code = 5466425230) 27 mmol/L 23-31 AGAP (test code = 6038188914) 7 2-16 BUN (test code = 0332218967) 9 mg/dL 7-23 GLUCOSE (test code = 0998789882) 94 mg/dL 70-110 CREATININE (test code = 2160-0) 0.97 mg/dL 0.50-1.04 CALCIUM (test code = 3465294304) 8.1 mg/dL 8.6-10.6 L eGFR (test code = 57817-0) 62.6 mL/min/1.73m2 CKD-EPI eGFR (2020). Assuming creatinine has been stable day-to-day for at least three months, the eGFR indicates Category G2 (60 - 89 mL/min/1.73 m2) Lab Interpretation (test code = 14611-7) [facility] Otfeq1462-64-04 23:08:38* Test Item Value Reference Range Interpretation Comme nts LACTIC ACID (test code = 0929654531) 1.06 mmol/L 0.50-2.20 Lab Interpretation (test cod e = 99125-9) [facility] Gqbaa3912-98-58 23:08:38* Test Item Value Reference Range Interpretation Comme nts LACTIC ACID (test code = 0692223103) 1.06 mmol/L 0.50-2.20 Lab Interpretation (test cod e = 73645-8) Normal [facility] GLUCOSE (AUTOMATED)2024-10-30 02:28:43* Test Item Value Reference Range Interpretation Comme nts POCT GLU (test code = 0836533267) 123 mg/dL 70-110 H Lab Interpretation (test cod e = 08392-9) Abnormal [facility] GLUCOSE (AUTOMATED)2024-10-29 21:23:49* Test Item Value Reference Range Interpretation Comme nts POCT GLU (test code = 7300201894) 114 mg/dL 70-110 H Lab Interpretation (test cod e = 66843-6) Abnormal [facility] GLUCOSE (AUTOMATED)2024-10-29 17:35:17* Test Item Value Reference Range Interpretation Comme nts POCT GLU (test code = 9101777588) 93 mg/dL 70-110 Lab Interpretation (test cod e = 53895-1) Normal [facility] GLUCOSE (AUTOMATED)2024-10-29 13:56:49* Test Item Value Reference Range Interpretation Comme nts POCT GLU (test code = 7732618448) 92 mg/dL 70-110 Lab Interpretation (test cod e = 22921-7) Normal [facility] GLUCOSE (AUTOMATED)2024-10-29 02:19:16* Test Item Value Reference Range Interpretation Comme nts POCT GLU (test code = 4883796344) 159 mg/dL 70-110 H Lab Interpretation (test cod e = 94900-5) Abnormal [facility] GLUCOSE (AUTOMATED)2024-10-28 22:53:12* Test Item Value Reference Range Interpretation Comme nts POCT GLU (test code = 9731340846) 102 mg/dL 70-110 Lab Interpretation (test cod e = 28115-8) [facility] Pyif2631-27-60 19:27:47* Test Item Value Reference Range Interpretation Comme nts Case Report (test code = 7646797530) Surgical Pathology ?Case: [id number] ? Authorizing Provider: ?[place], Andrew, DO ?Collected: ? 10/22/2024 1209 ?Ordering Location: ? ? [facility] OR ? Received: ?10/24/2024 0834 ? Department ? Pathologist: ? Guillermo, Ruperto, ? MD ? Specimen: ? ?TOE, right 1st toe ? Final Diagnosis (test code = 2605800157) d0zscZBsWUDav8swPBFcpZ FuZzEwMzNcZnRuYmpcdWMx EFwgesLhRAginFqhFWS0BF KrQM2kgDhcgOj1mZgwTNEh feW6kJPcVQqos8ffZRC5z5 yjfpbzOTXiLDmeRy8dpGCx vZtzAaCnVFUyKHk9aW36GR EmzL5tqUXpEDq5PLLtiFWy fyFoHjBdGCAemFQrkFM8TB PlKD2gqkffIOiaOMwiYTVd hwN4HSJneWRrD3NzISPlGN 1tucoaNNT4BNvzSPDsUEH8 HnBjFWCtz9Hqteb7SvJsjQ FyZFxwbGFpblxmczIwXHBh qiZKZwWSQ6IeYMVKN6eLZC BoZ4GwSK6PASLLSHIUXDDS UP8ZOrSgxJKpSSriTSG5pL AnrrZdJETqGXvMOysOJJ6O R5SKZF7FS8BHA3rTIE7AVE YOLL8oZQ0VTWZLNzMkTNtL R5PEZKIothYdXSWtCG1MXT 0NUPSNOMbTJYeTUHRtN7VD PvSrmTYtYR0pb0gcV1IjuW QdYDDhTD0fAirIQtoJWNRP DU1kWNRHSpNgMHMGHSUKO5 MZZDTJW5PYOUKVKEQPZL9y cGFyXHBhclxmczIyIEdsYW Vsk81oN9QckjxqGJXNLYQz cGFyXGZzMjBccGFyfXtccn AaZRece3GdC5XhNfIsKHue bnNpXGRlZmxhbmcxMDMzXG J1heVcXFBiLQaaPDSnUFqs Fa5xuTGbxXcpCkUwWLRuw9 dbioNPEXstZdNrG637HFQl KOcmv2xeo3VsFNMldEJou3 E7IANSekdpyNe4c1txDzHg CgD8rMZkYIfpN3yknyJtuM TwQ6GyzKKcrLa3rYzcP96y o1R8JvrgA0guMIEvFXUpK9 OtOT5gGIBaQqa7RBJ5LOU1 KODgYQGbX1FmYF0qFNEykR KwKSy5e8onfYycBXSvGBI4 h7ooPXfemsM4ZF7wfn9siA d2w3kbgmXcAOCsGRXbtNVZ KKPcT8AreLtfLj4miRu7nS hlKjbqMLW1Ipm6YF3nhw23 zao7uXooJOBkqeotJjU0EB juDXGxpiyiIWt6JHoyORRy wQX7BDTwuPTqI8DvLMSvVK 7xqkk5TFL8SGwzABFjTkF8 NDBcaGVhZGVyeTcyMFxmb2 05DPT1JxLhEV8sS9Jpq3T2 aL9qhFDeAPSarSJpGkSdUC Gikh2yzGOwAUaso6TbOZC6 hmD1qWSxbXApSIWhOS04Lq izb5WnHpxhAXK9VCEebbCw k1Kpi2kvHfUnljGoK2kkM5 JyZHJoZWFkXHBnYnJkcmZv f1Uzt6SfsDZkcHf0z1lbLT JbVUWbtUrpl4deCZL8UBQl M9G7iKKxs8ffDHauEMVhzT S6osR8MWXleRHbI4FhxI4q XDPsEL6tukg4f1pxTGZ4YQ dnPGPkAtG2fnJ6QLYcnFQw FYNidYwjJGbef444UAC8Wm ZhHJOcm6LuT7NfqBixL18g tLtxA94hSDIvrKmpeJ0klR ogoQ8dAeBfWeRvOHjxkDhe bGFpblxmMVxmczIwXGxhbm vlXIMxXZukB3erAhGrENLl uUnkPKhxv2NdDUAtSLRhDi xmczIwXHBhciBJIGhhdmUg vCUin95tDTtdfOKxYBMdWD mhKNQntEuam1QkT8awOW4k F6UphRWjumUgzoPtPVppNR Ffn3z6kWEaxIcjd8QaxKUb XI07fcObYLIgZGN8QAOwy6 ubXQ73rqguAgDnmY51jgFj fdOrBWFfe1psB2jjwFIja5 Gpf6VbjcQeTGljb5YfEQ9m cVYupkunwNE9VWSzkWBiix LgtkX9iJzcWARwcT2msE0i gIyotZ4qYmJhTtYvMWlzMW 3uIOWkA2mqeTEeIPBnPNQj Q5eaKcXarT8vxUmgCzraml C1MTGxjj61 Clinical Information (test code = 8837947886) Peripheral arterial disease [I73.9] Gross Description (test code = 0373246851) x4ggjRCfUPXgeUPNSDM3MJ LfCN5iuLxlnJb1mJboXPQu wkX8hIGzZCqvb5hhLAB0w7 vsvfYRIiaqCXMhRS9aTCfk NQFlZH0iDiVpVHWnCpSdTU BhcGVydzEyMjQwXHBhcGVy iTX6NHWoDZ5pyjmqKTyqUC fqGCOdgjC3YWLpeQIxT7Mz BGVrJO7yjvfcKWG7CQZCJn pkEk6enBFojYnmSlOeNrIr CFZgWRQtJZGoq2sdlgIWry ecoHk3nS3ZUTHlH1XfIL8S n6htYEKhjJVnDEK8MDfhv8 opFXszCHB0AFZaZZNfGLCj KU4QHqWbECG6LvEjKqMoSg L2XKm7DSGJURWlBID7VVH3 WdC5VQy1LVBxGV7mOSdyzT JyBMxyQqgeDAwrW830ZMxc XEUyV5AzM7EdYEbiPsPcVG uyUAFjJIImFUmyFYKnN5JH IROmSIaqVVKxZtAgIUs0ZA e9OK5QBjFdKWHkFXsgHSIf MtIfHSv0VQhvEA2KDZCzRF BuUns4ApBlGNYqFXwjNEq2 IDIgXFxzcyAzIFxcZmwgXF kmV25mvCAsNEEMDjdqvCQu blxmczIwIFNQRUNJTUVOIE QwmQZdO6spDzNqMabhHXNe DQpccGFyZCANClxwbGFpbl xsdHJjaFxmczIyXGVwaWNO KHL8FY4rCYNKOmyixAWlXN UiMZiLnCUclK6vtlFJSSpk OHDsH6ReuwIqSRvlLJLfvd 1hbGluLCBsYWJlbGVkIHRo NUMnXUEuFJ95M6FnyyFjFW wgVUggbnVtYmVyLCAicmln xAAzFYM2JKYhIDUuO55op5 mreXYyl8HhHBQevC8itOVw pRNsZYUlyfkvSK4gdBSjwA DiBAXwFKCtjQXydV9tfwNr WF66JTtsVy3xWFtvNe01RS WwARfbp3t3nCEcLTMbnm45 BFehg2lnCP0rUZF6odnnwW XdZH0foXyeAHEezIhkRHQl s8HyoKTzpxEnXH3dwN4plI GrEAOrSLPkrb36D7bysuOj UQDvnwXltMPnU1ttLMK7IA RtOLXgvz76wV6zgGPlghTd ICBUaGUgcHJveGltYWwgc2 gmbkKyruWox63unDO3tPRo tJXwjwOmRZF7sX4lME7ian dpbiBpcyBpbmtlZCBibHVl UaQyZKmmQZDruJ4ii0NcSg StSMMoobKnFN8xyjexIyzy DKQzhwHgBITuTF0egIBfqL ZuSMJbFZHrk9DhIVibL66z m9FxvJexhdUhktKiG2ifRn Jvcj4jLRKqNT2gTkKaI85t dF6nQ2TmKINtv8OhBOzzAN 6txQ9cTUceK68efQ6qDITc VyQjtKAvlc6qUDSeQIXflO 3dGHE1GCUmwP4lNH1uSXRm PsLefEljd0YeJHHdu5XawH bcbnKbICKqzN1kJQNkrMep NLRvvRd3MFEuZROeR9EaIG xePpEcBU24MHMnPGgzRHNk WK3epEQtYAGepyQnFBvpmn WqFgZnmhXwPOUgqkJ1rAVb a3ocnnYddOSeDTAeNGKml2 1obkwnXP8qOXNyVWUmx49q yIaoVBYbd7Kux4Nsc8oyzx JtzyGab97quBL1nETveHYf zeJzDPG2dE4gVB6ssuujoi 8mVGXqYWUclBPimP5kooYt hrSdj78mkJP2UIxkIVzqfU WqCJA2kB4lYVVgiI2gscL3 XTQuBDGofn6qrJ7sTOVvDR qydSbrhqbnFxydyDMll09d LfVgWjBlatMrNR67EBHvlz Yng7QyfTrhxrHdQLJwQFB0 Mq7rlRBmFTEtyzFwx3brx7 ghIXScz8hwn8mnwzavTIEq QXmiaUPeG0T4eU7xQQ5kBQ XbOBQwYCDUCZ3hdXYbOQ6F ISLsggHPMgSjU3Kam84sE3 9fCYgjgASrWK9SHTKcWVD9 YZUlV6HwMOHymtZbVHIiBK U7EUNtICAre3Qcp5Ses8ro lpAmvyVov42wsAO8nBDgiS HdyHTtS7ntLENpBLQkPY7d kQS3oTPyKOSzOGVqGWMdns RlbOu5DJwjMWExZZeKJloj GITxbHwnLUfuBf5rJKTdLN BmL9Lcm51ujDOiQ5xxMKVz zwWiKHCwFVBbucIJGzO6Au I2s2EyQFxwzyycrGJicN8g bZlmawRueiYlJO90RESlqd KktWOeWF9ZZTI7FKVzkE1m BC3eGCKcCyDkbJmli7SeTA VuZGVybHlpbmcgYXJlYSBv PdUvaKUqd2tglfD6tY8pTH ZsFLAlCABmzmSmzVw4ZArp EXMyLJnsmNYfRI6PILOknG lhbiBXdSwgUEEoQVNDUClc jOIfQJ0FVTYzo7EwB7Z1DM SbQCuik8suBXAmIFutp0Xj UZeTLKPFRT4SBS6ukUV7IE uQE6WUL8iArAMmKFEwILwg wOCIXI33ACo4gTL8xY47VF YzNZAejTIgGTsfD331CN7l Vd9xAQQ2SBBzLlJvc8icqS SnDTwuXolmqMQwtoQ3FYwL XHKECVrNDrFkQZ0pKEzQCh zBNbE4VnGnCFQjkHE3XGBY CKlbpLs5CTt4zSpmXpeuni XitWKpOrCUlA2asIdywX4x tZFsG4auRkHnMhztDCSfRC vvz8YbRKfnpBlkUVJrGyTi TUamDYWlC78mj1BTm7Nti7 vwgEwjn5PiuDTaOQ32VXLa gJAtHXA6VW7rnTgpHAIxFX pccGFyZCANCn0= Disclaimer (test code = 2739601245) o2gtyJJqYTHdb7dcWKTxwQ FuZzEwMzNcZnRuYmpcdWMx WQynsgSwVRrlt0IzU9JzCz AwMFxhbnNpXGRlZmxhbmcx LEIcHCF8foFzAINyPXqrNX JhQRnjLy3bqEIinKibJgCo OZYcq1kyxkCFGIdjFwIwK5 78XEFeWSkfa9jvn3KdDEXs uQVkl4V9NEKZqrqcgYt6nC rtK49gy7S2RxwuJ2lhNAFe KGOdI1VePX9jAFHtNwo7EV N5QSD6TKMlUOGnF3QlBO6n RXQelYYoTTh6l0swuRltDT MePQV5i2uyLFmblfSyMO6c vp9dnMb8o1naxtJpOQQnDL OqcESVIKKdX0ZkiZktGv5m zRb6dNtvUxuuFIC7Qfd4CK 3oba73gak7mRigZTEvrorl NnX1FYymKENfjzeiXKe9LG roSRQabRI7WYBayAErJ9Cp WTBkSG0qyyg7PXC4NAzxCF OfQwL4WDOasHJdVYXcsYyl OBwwu844LEA7CtWpAR6rZ1 Pjb4E8kB6kkLBxBLVzeUAy PfKeRKNqpo2nsOJbTJlew2 IpLHF7fwW9zPMhyMIlHGTv BK80Ecvuv2HzQymbd2SdN3 3tbZD2VDlnh2lmEO3lUxF9 ooDuGVmmu9hvnR1fBcC2SR faYA8kDF7rWCTvmD4tsybn XHBnYnJkcmhlYWRccGdicm QkBb0gqNjuFCP8YSmeO2vs tX3tVoH8MRpqK7cmsJ0xLG b2ZRqggBB8OXNjxI7xBM6o xifru1rdEXsoSMofYBXftx Q3bfT9PWHnrTAlA2GokK4p JDQiAK1wvolvx7szDDZ5PD jiXAEiNNT0IoNbSZTzs2Xl ujp4AyApt4AnjUSfSXnwB6 4au995VNVdcmVpG6tawCOs mfufyVPqvxkwBPmjwcH4XH BylkFlz4OcKIZsVJW9JNug PGuwoRZbKDFihSqbj9rqQ3 RscGFyXHBsYWluXGYxXGZz MjBcbGFuZzEwMzNcaGljaF hfTGmyDuApLBDqEXthY4ol HeNrB2UiYEOhUxPskTEwG6 ggVGhpcyByZXBvcnQgbWF5 DFisP0y2SNBfbbQehUq5rx XoCcZnJIBqLSK8UEiboDIg PRXua8DslsqnkOOgGx6jnF GtLIGqaL9wBLNlCHYsTCwg ZV8yqIj3GJSZgIMqvQGqTi HUUKSbSV82ujIaRTHAecyy b3T3CCjjKCBdc3LeaJApT9 pqc7UsVQJcw52oJP4sk1U8 j0bbYGV5AL2kx9BzETWmiJ XxfCIyRUIbc3Mqkpdiy9Ky COMmbaFgz6XeKFAqrnDtiZ AvPNLtreUjzc3yjsVlUTZo WNOwC0QkjqrpjPlgqnGcBV Fitj4wxiMkBFN5IQKSLVMz CIWir8ZwdU7teBWNEIN7eO Zmnx7btrHFsMVmTZJqac27 MNTcEQ7xF2wxLYBaNEMagh EpySFdd1QaRYUiqPO5nFCq OE7OEtSQt27rTXUkEIHZkh AcQAPrgZqpjZM6esS2qN1x IChGREEpLlx+IFRoZSBGRE OaNC3tyjDeh5QknzGqbJsk CAWhjUJlk2JdmGAxb0DdqM qhp4YbhCDebMYcWS4pUTAi clxwYXIgVVRNQiBMYWJvcm Z0b2RhYWGlYTCqJBB0eTfj wdb7HICogB4gYGLqL6fcjo zsKLvsLLRjp4VpqQ1lgOJL lCOrj9JbtDGmfJXKjQDbHQ 9bjvDwDLmMGIqEPUN1dkRp ERFdn7HfXGbpP8qxD77cwV nxoPk7eYN2ESJ3dV0fWxk+ IFxwYXJccGFyIEFwcHJvcH YeDABmoQypbmSfA5DkzxVr qD8gdXMbaeYuQS9xIC4jB4 D3sONoUHVhflAjo4aaNInk dmUgYmVlbiByZXZpZXdlZC Pzb4XwOSbvSMX0NIprnaGz bmNsdWRpbmcgSCZFLCBTcG FjiPGzKGJ7NRohgfWlvmDj GC1ztB5yiDgyzG9fsFBohY G1fhseVPPdKTDxgJiiVJJh OX7ymEbmuD8jSfJtVwCzKC cyPC2yQEDjL9imrQNjWEZd GAEvB0lzQrYbmE2wiTkyJS xjZjJcZnMyMFxwYXJccGFy XHBsYWluXGYxXGZzMjBcbG FuZzEwMzNcaGljaFxmMVxk DzWiJQLuWKtiI6zmXjPnH1 PuRWKjWvVpeVTbW3orNXbl MRY9YGPxMS8ayTMuXJ69fU Dga2mzRAlrvWhzke8aS43r vYKrOPnweJdvMXTxr70wk1 TmOGNfmcYrbs5kGVHrcoS7 zL2pHJMjrVyiOURxtEKjDZ Ihg8JjYDxzzVDgqeIpTLxk TXEkHCAruMTpmwF0oyGodj QechAbOLAnkXsgECNxl1Tn DCXwMEcnv0Pzvk4egOWmGH ScruVBpJcqdEMchD3vC4Nk ZUExDLAfmy3lGEYsbP4bXY joo7CtatdmPNUoZVFcJUNv peVeju1mACOxaWZMHM4PGY cceXQvq5VpwoCgN9uCLZN4 NUQwNjYwMjgxKSBleGNlcH SoDULwkd02KTOjwP6leSza HDOqiX5vbF6zyGqvqY4jKj OlXgGdSEzsVI6wGXOqE8zl qJKeFWWgZIIpZ5zfZnPlfR 9jaFxmMVxjZjJcZnMyMFxw YXJ9fQ== Embedded Images (test code = 8449036293) [facility] GLUCOSE (AUTOMATED)2024-10-28 17:53:39* Test Item Value Reference Range Interpretation Comme nts POCT GLU (test code = 3780190876) 104 mg/dL 70-110 Lab Interpretation (test cod e = 33963-1) [facility] 14:26:10* Test Item Value Reference Range Interpretation Comme nts POCT GLU (test code = 1972867533) 131 mg/dL 70-110 H Lab Interpretation (test cod e = 01157-8) [facility] Kuvt1231-57-89 20:08:54* Test Item Value Reference Range Interpretation Comme nts Case Report (test code = 6318674264) Surgical Pathology ?Case: [id number] ? Authorizing Provider: ?Luis Jay MD ? ? ?Collected: ? 10/16/2024 1001 ?Ordering Location: ? ? [facility] OR ? Received: ?10/20/2024 0851 ? Department ? Pathologist: ? Ruperto Li, ? MD ? Specimen: ? ?TOE, right second toe ? Final Diagnosis (test code = 9191379031) s4jurSPvAJQmr2yeXJLkbG FuZzEwMzNcZnRuYmpcdWMx VPuhghWqOVlgzLdiYKB9WA OcWC0kzDmtvQh4jAxaRJYw izZ7hMNeYCoub8vhDWF0w1 bvtrsjACNoCFkfTy4tsSEu lSzqDhCxMRQgNPk6qG23MQ EdoV3enAGqGRq2KLHeoXRo kjAsLiMfPTEreOEexCN2BF PqHT3cbykcOElhXTsgURZg vfK2RFBamDLwY0XzKSFnPC 9wwcwwMVR1RFriCSQiRFT2 KsRbVXVxd8Wbpdn4OpRzhI FyZFxwbGFpblxmczIwXHBh mpHEBvJZO8OaKXDDG2pBSR VDD27QQQklTK5PDTQZBIfC TjogXHBhciAgICAtIEFDVV IEMN2ZGMCPBAxDYGuUWOGg MICwqjq4oOZeiHecHEWwJA CcWARTE7ZZXM2JExJATT2M EjSSFBGOQRGWGLFQOu4PZZ ZAJkHzY8AJD6SSIP5RQ5VI ID3WJ1VOV7hAUMDJYCBRBx NDRVNTXHBhciAgICAgIEZP Tf5KRNtXHpcvKTRuXJNrSI JYX0dMOGUCSEZOP2QJERHV C6OCTMCTWXPFXG8aDgqCNv xFXHBhciAgICAtIEJPTkUg HDGZS3sLXJ7UX7CEFTRDMJ LMJsCHS2HSO67OLZaVMPjR HOgeWZNcuw26zHHgnFlbVE TjlNGpIALpJwYgP2viKKKo epZHD3IfkJGgVZ4FTWjgGV IfQwNiJVlsKTG2n0kpeWFb XHNzdGVjZjIyMDAwXGFuc2 lcZGVmbGFuZzEwMzNcZnRu RxamfPWnGZMbZrNwq0fsb9 55jPUix5azKDHwMfZ2mGBo EQRrkSjxwwi8xJlcGsQjQM Rrl7akbjLjShHqXHFkQDOr ADMkaYAkQ683ZIMrVHhhn1 dzu3BmHATiwGKxi9O5KRQG BQljLyCxL021a4lij4cjds TzvUJ2HOVuWRA5VOytlvHu ffU1QGvbfFAaEzG3MWibgr ArOXvvckQhjoUiSge6HQEz H157SGE4cTnxo9qeMPB9CB CtQWFkDjxyLf7slPLvV357 DGUfKCDZVRMghTa2PLOpmt LrxtPszVWRc615Q916i6qw SAMwbhAgiKxNtcnpu9gaX9 19XHBhcGVydzEyMjQwXHBh xGEswVL8HPCdGE3flfjaOD ugEIzbNZFwuoV5HGCyaITu J0IjOYNoUN5lxhnxEZJ6VQ yyLXXsGRK3CaPbKAIrc9Gk ufi6YkGqla2tuw16TTE0p6 OmwDbqZTO2FWE1LyMlXe6f bRKfHMRrAY0uLqNzrUPqZQ Apba68pNeyTPloigZanG4d AiHcAYQysAKzJELdQD6zaQ LgQCNeoW5jdgijRHMiDmRn qslzHIShnMlawmIkUx0qmP sjLLM8FRumL5igtL1mLlC6 VVkgX0sdeD6eBMh6WWzfdH D9LNJyiA0wVG5ccaxru1lh ZLoiRVqrYYHjjhC7xzK3ZQ EclWVeH8JisZ0uKWEbYZ7b ohrya6ubXCH4HWdmEWYgWA K2JpNwFLYgt2Tunyv3GoMs c6CwsGWaTQesS36fe002VB ZzseSfK0nrnMMcszqnbKDw xirhDGepwdG1LXOrQLJeRC luXGYxXGZzMjBcbGFuZzEw MzNcaGljaFxmMVxkYmNoXG FbTHetO5vjOqKyG3WlCXDi TdHfjQSlTVlaoCM0PKUpAD Xov13ioKo8VHIvuaooo3Px WSPkzWBqzDXqeO4cvlUuu4 hhOQQlIDEhYGUiZ9HhXBX4 vESoJOAnyFMqlUQ1ZP2vlh MvXP0cGYZbDovarzGtjNNu soZeDVIvVQnap9npDX1ySH XxxOyjiY9qpNT8DLLnu8sk hJCbqCBok0exc9KpicOeJV faDULzTLyvXSWtRRWkKH7o DJHdrONbrpSty8G1EdktvK MpvulmFhswqxA2NOqkujdn AFVtWMcuF5dwWfHeBRNivU hcPwqbf6VlUWJwJCWkNkzh cGFyfX0= Clinical Information (test code = 8455982416) 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]Peripheral arterial disease [I73.9] Gross Description (test code = 1681994392) a9sjkNHxTLHuiPLvUZmaKm tdvvGeQQGylBAqF9Xkvxdb VUnfIR1tGJ9wcSyjyZGmxG GgYSCsNmPfp5wcy434xMDt d1ziHTNTteabjLw7wUdjR5 9rj0M8SjrrF96ugYYzMBY7 QLBeJFHfoQVgEHOaTKQ1ZC JbiFXmC2ijKAXsSV9nfjhc JBfiTPgmENUsfRU6XZNwhU AiA6UvPYOaHEnmRAJeuxg4 SvMwWe8wmFUmfVinFXykJi hhfXmxn6AhnRRjKUmpUGFw OHZwNCfwldzdMBu4JKAcLD iuqTIcKE4vkFltAcobkAcp j5CwzLEnKQelRQFkTEMsMI qvEVXgQ5OLVEFiPAvqWMV9 DefoODf0RDm4FM4CPtYrPQ RtIJf6RNVuHHAaRAq7SUow KS9TGKKeMTDeGgO1MvSpDQ XaUQRkYAu2GJHoCYcmfgXp IFxcZmwgXFxuYyBcXGZyfV xwYXJkXHBsYWluXGZzMjAg Z8GNM3eZWE9hSPbuXQVllL TbSKkwUkWjLXQbmKPLx1Ik MFxwbGFpblxmczIyIFNwZW NpbWVuIEEgaXMgcmVjZWl2 VAFrSoBkh8zvlZDjLRvxCS C1tXPiKFKyKZIhIAMlYE09 W8DynqWiQObiEPjhlqGmWk NcYXNvvwftmHMno9Wxr43n MASrVGMzMN7eKUMfpuUaa6 DaRW8gHENqpHHgHZXoj4Mv dGljdWxhdGVkIHRvZSBhbX V8mHP3fR4mWCc4TwFdG55l gG9gqVQzT1BeTJO7ROKwZy VayZJobWWwBPUgnheez8i0 jYVnHTBjei98oEz8TEYen5 5uCDZoRKZmm6JgbWzrzHyo aTTxHUR2pmWaW7JlADAlJF BuYWlsIGlzIHByZXNlbnQu HNMKgRRgq9btkxHosFOqOG NqpwMmRH7jjiwdKyhaNSGo oqCdUCVlaa9hmy50nuV9pS EjscQ7KWKqIPTjMBHpOy1l GWagUY8mPAMqUQC5sVUttT 2nuXoiMD1dJXkjdAGou5Cn P0Iwy9LhzSrxKTRzCUYlrP VuIHdoaWNoIGlzIDEuNSBj fZCmhv1jIXEwQDXbo0rlZF SmAQDzy2Z5LQSgt3R7GPVu ZGWhP3Gec22bmARvU7xrOV xcdjvgCDXchQAxVA1lOZU3 dlMrtU8bgP4nPTSeGTT1iH WupxD4SDZwSHFsLQL5jFBv SLVsmzLwEPCzsy6uQTKpsZ 5uqHQpPQQdr7mbMEAai3Uq pK8zJAEeNGUeUALiOm1fYN psIW58LTF9oFUldA6leYcz XYQgerVizFQet6PnB2OzyZ edmWZxojEzMiniR56jBrXo zTM7kVNzT3qkp5UxfGHye8 ziDSRlMAGel0G8LTYsr9J1 AWFkVGHnK4Tck56ekTSuK5 luLiAgVGhlIGJvbmUgaXMg vS3vT0g8mRZwvkGieKmqe2 VjdGlvbmVkIHRvIHJldmVh yKR4WD5ccNYjfG21WYijaN 2rvquwH6qbYPFhTKFpKHOt PIFgbMLqy2W2YT7jNNHlhN Wnb2PsFuIoCOFtW4H3OKU6 iwVrS1LlGgNlIrHmzyGgWZ 42XHXmxeRjf7QasMputuTc WELnOTL1Sg9uuIKvLLJsdu LDUE9INjbzOs4qeN99iY1d WLIbO9WeG3qqdSVgeKwozg VwLrZDHA7HEs4bwBAgIQPb qsOadAQpDLYcL2Aab72eY2 9kZTpccGFyIEExOiBFbnRp vbKdUG8aXeZvKNJqe2kbPV MvKPJjj9U2LNAxl3U5BNCl IWGkO9Acw33baGKaN2cmZV FkVVRou84pHR8qqgaurbHv uR9rXSVmCao3EWaumTGfWG KtYvMGrEDxnhU1ZBJjCQMh g7LddD3zIRPdENKnYJYefc FwSl3wNLF1zbPndz3cYIDe IUYgrtnqAEKsv0BgUEytuW hxAYFxWnQlY7ZfJX2aFiNr ZGFuLCBQQSAoQVNDUCkgXH Tll6VbD0C5IANtXHuzk2oh LRNoUZtvd6AoHVtSKQEULU 6TWV7biRV2ZPtIC6RMD4cW jGYiJOWgGWjuyJBOCL32NY p3tFP8sY76EBSeLOTawDUp AMuoJ698FY5eAl7hXLH3JN KhAuBaz0raxVYsMNloOvah sMSefoH8PWlMIKAPCErNHi MyQR2dNMwBMtaXErE8HmYy EZBfkPA9EOXPTCunzOh6OI x9pQkhVqkvivHtkJUoDjUz wQ4ruFgvsM9aGoRmRawrEH NfY5ExQ4MgqrZ6m8zubEwl w5FkfXCoHA4giFJamA== Disclaimer (test code = 4073457606) v5wsqSQsUGCee2tvVUInuM FuZzEwMzNcZnRuYmpcdWMx HRdnneJiWGqyt1WtD1QvXy AwMFxhbnNpXGRlZmxhbmcx SFAxQXZ9fsHrDXHeNZdoAE VtLZafDs0kgKIvoTzyRwMc VMDro8aqdyDSBSjwEhZdY8 57JKUkBEeen9weu4MbBVKe bKEvt8P1FJZQpdhgkNr0hX msU29hb6F7TbzuK7kiBMAl KZQfZ4SaLY7tATHtLfh4BT W8WQC4SNMgVTRqY6QwIK9m EBMxvGArRJl2p9ujhCyzXP OuGGE6j9syATbepiWzQO2e wb3jeGc6w4wtxgPlDZJzTJ AbbKNLVRGiM3KjiHtlUs6j tVb5wZnjMuodCCF0Ciy4PL 3tdt95ege1fMayAKBdpvgw YoF7YJygHXZeegpxCHm5GF kxHMOpzVS4VLUxvSDdK5Cw EAMyHQ8okjb6QZP8BYtuEY AiScC7UBHztBTyUQRjoDpg XMkcv328RPH9SfGlXQ2gO2 Imt0P7zK0fdWFiYQRcyIPi NtZfZVRfjd1cjKQnGPirp0 WgDHV5unH3gJPypIQfFJKf HI30Bbvfx8PzWqhsd8VzX8 5huPM9UGtxm2dvAD8mCsG9 piUsQFrgm1bujV3wHuF6CB eaHK3zXV1nTRWivN1bxhxz XHBnYnJkcmhlYWRccGdicm NtOa7bbWgyFRC8KFgcM5wb zR1sMiS8TCsoT5kuyB7dTB u9UMvnaSH7JHJucM4zBQ1d bpdhb8qkDBisCWtbYSDkmu J4smR2YUYtpWGgI6VqgD1b YYMxZF8hugbhy8yvIOO0ZD rpXGYjVGI5FnSySWPhw5Ll xxa9HdYfs3BdwRJmYTndO8 4lb085BRXdysMbE2hafHSf xzjraYUrxnouJSbjvkQ7AI BsokAxx7ElILKgSZX0OOdn ZOvyfKJtZRPpaZroc2xuJ2 RscGFyXHBsYWluXGYxXGZz MjBcbGFuZzEwMzNcaGljaF jyEBrkVyTnQNYiZCytY3zt KeRrX8TqURJiCfGacDQkC5 ggVGhpcyByZXBvcnQgbWF5 AJxbG9r7VYHrkmSjqAv5uq DkKvTmVVXuVTY7YAssiAQe ZXMwr7NwgrsmsYQgXi9opL RnXZHgzN6zOBWyBAQqHXiy LT6xiYv7ELIMqYLflIIrMd TVNSXhRG02caRoIARVvccr g2M0OJgeSZUww8GqmRSzQ9 rsu7AfPQDca44sMP6ub5V1 o4fuFVY6YQ3xr5AfMSOlqL XrfBEoHTTzm6Hazmjmy5Yz GHCoxoStf7MzSRAmbrWvxO CsNAIoglOqsm2jsyMqRQGo WOGuA1FgsxkdkQxujbEqYT Vvue9fqoZkPIF5ILTXCRBf ODUtk1DvtE2cdPOEUFR8nI Jlxq5ajbVLgAGaQWOvyq23 EAOaEH9yL3fdZMGeORKuce RnrMZrd1BzLMQsaFD3sOSv DW4RNgOSh18fBJEyXIKKdh SrDHRzaBnbzMR0kqL7lN9q IChGREEpLlx+IFRoZSBGRE LzXR1nvaOzh4ZoccNtgUad NANaaAVjx3PhsVQaj8SwsY nnc5CbbEJpzJFrTC7mJQMo clxwYXIgVVRNQiBMYWJvcm I9m7RkITLoRXYeZOL4tNhu nvp8AZZpbK8nEENaS8xewj tsVHfqNFVxj4HpnZ2ehLCG fRYvc1OioYFgjUXTgLLgZN 2wxgQuPTrAOQqUZRG4hgUv XQFxo7UlJXflG0fhA38xiN xnzMv9aDS8OVD9nO5mTyq+ IFxwYXJccGFyIEFwcHJvcH FaRHTzqDlnloXmG2NxnhGv bL3abGZrcmLzIR4mHN6mM6 C6sHTaYFTjwyKoe1hhOMjp dmUgYmVlbiByZXZpZXdlZC Pag7QjQMeyTDT8WIepqmHt bmNsdWRpbmcgSCZFLCBTcG PetPTjEWL6VPegwqByrmCg DV5lpK4alNfmdV9teDBczL V0ngvrOVSiLBAxqVllTNSx OS4ysAbbkA8xVjZcJnTdAR xzHH8iPYLxC5zojOKhSFVw WTBnJ2afDnDonU7vgYdiNB xjZjJcZnMyMFxwYXJccGFy XHBsYWluXGYxXGZzMjBcbG FuZzEwMzNcaGljaFxmMVxk EjMiFAMbUKpkY0rfGeHiV4 RxUTZlUfQiwNYcB2ukLYye STA3FHGjBT0tmGDjLC90gP Tdq7iqFGfiiNdqgz6mN73m gDKsUSczrBdcSYCoo16zo1 EdTIYujwHtuh0gZSWhfyW9 nC1pPFRmkMmzYZXnwZZrBU Yic6CbELahbAXcdtYrLEmp IKWcEPGvvKQonmB9bsYivx VjrrVyUZKsoMmuUQKcl6Ch VCSoLChpp5Soyh6mwHAuGP KjvsBCyXtuuCYagG1cO0Va AFZhEYHjfg1wNZMrzQ5aXP toa0BwujbyRVXxKFRxFEOz jlCdjf9eFZMrmQCPLP5BNB xplJNpd7UnvxSkG5sWHOO3 NUQwNjYwMjgxKSBleGNlcH ZkUOQgsn17BEOvlU2pgQdx NWEchT0aoS0neTomhC9eXy RpLoTvBJpwVB2jMENoB6sy hWWfMWExXOLdM9bxNdPbgC 9jaFxmMVxjZjJcZnMyMFxw YXJ9fQ== Embedded Images (test code = 2120430583) [facility] Metabolic Panel (NA, K, CL, CO2, GLUCOSE, BUN, CREATININE, CA)2024-10-26 12:14:05* Test Item Value Reference Range Interpretation Comme nts NA (test code = 0643799100) 138 mmol/L 135-145 K (test code = 1048067889) 3.8 mmol/L 3.5-5.0 CL (test code = 0606135497) 110 mmol/L 98-108 H CO2 TOTAL (test code = 3843327269) 29 mmol/L 23-31 AGAP (test code = 5115245911) 2-16 L BUN (test code = 3124734611) 10 mg/dL 7-23 GLUCOSE (test code = 1492960543) 91 mg/dL 70-110 CREATININE (test code = 2160-0) 0.50 mg/dL 0.50-1.04 CALCIUM (test code = 1810698225) 7.7 mg/dL 8.6-10.6 L eGFR (test code = 00498-0) 100.4 mL/min/1.73m2 CKD-EPI eGFR (2020). Assuming creatinine has been stable day-to-day for at least three months, the eGFR indicates Category G1 (>= 90 mL/min/1.73 m2) Lab Interpretation (test code = 31359-4) [facility]:11:[facility]* Test Item Value Reference Range Interpretation Comme nts PHOSPHORUS (test code = 0810267502) 3.8 mg/dL 2.5-5.0 Lab Interpretation (test cod e = 44965-6) [facility] 12:11:33* Test Item Value Reference Range Interpretation Comme nts MAGNESIUM (test code = 6789959383) 1.8 mg/dL 1.7-2.4 Lab Interpretation (test cod e = 19589-7) [facility] [id number] 11:46:52* Test Item Value Reference Range Interpretation Comme nts WBC (test code = 6690-2) 10.60 4.30-11.10 RBC (test code = 789-8) 2.85 3.93-5.25 L HGB (test code = 718-7) 8.5 g/dL 11.6-15.0 L HCT (test code = 4544-3) 26.1 % 35.7-45.2 L MCV (test code = 787-2) 91.6 fL 80.6-95.5 MCH (test code = 785-6) 29.8 pg 25.9-32.8 MCHC (test code = 786-4) 32.6 g/dL 31.6-35.1 RDW-SD (test code = 57699-8) 62.8 fL 39.0-49.9 H RDW-CV (test code = 788-0) 19.0 % 12.0-15.5 H PLT (test code = 777-3) 223 166-358 MPV (test code = 39987-5) 10.1 fL 9.5-12.9 NRBC/100 WBC (test code = 9529686570) 0.2 0.0-10.0 NRBC x10^3 (test code = 2879425691) 0.02 See_Comment [Automated messa ge] The system which generated this result transmitted reference range: 10*3/?L. The reference range was not used to interpret this result as normal/abnormal. GRAN MAT (NEUT) % (test code = 770-8) 52.9 % IMM GRAN % (test code = 4140535052) 0.80 % LYMPH % (test code = 736-9) 28.4 % MONO % (test code = 5905-5) 13.3 % EOS % (test code = 713-8) 4.0 % BASO % (test code = 706-2) 0.6 % GRAN MAT x10^3(ANC) (test code = 3776539553) 5.62 10*3/uL 1.88-7.09 IMM GRAN x10^3 (test code = 5485978680) 0.08 10*3/uL 0.00-0.06 H LYMPH x10^3 (test code = 731-0) 3.01 10*3/uL 1.32-3.29 MONO x10^3 (test code = 742-7) 1.41 10*3/uL 0.33-0.92 H EOS x10^3 (test code = 711-2) 0.42 10*3/uL 0.03-0.39 H BASO x10^3 (test code = 704-7) 0.06 10*3/uL 0.01-0.07 Lab Interpretation (test code = 36289-1) Abnormal [facility] Culture(Aerobic/Anaerobic)2024-10-25 19:40:30* Test Item Value Reference Range Interpretation Comme nts TISSUE CULTURE (test code = 43428-5) No aerobic/anaerobic organisms isolated Gram stain (test code = 664-3) Moderate Polymorphonuclear leukocytes [facility] Metabolic Panel (NA, K, CL, CO2, GLUCOSE, BUN, CREATININE, CA)2024-10-24 12:18:22* Test Item Value Reference Range Interpretation Comme nts NA (test code = 2584779852) 141 mmol/L 135-145 K (test code = 1858826374) 4.1 mmol/L 3.5-5.0 CL (test code = 6997545800) 112 mmol/L 98-108 H CO2 TOTAL (test code = 4458331848) 29 mmol/L 23-31 AGAP (test code = 6757395401) 2-16 L BUN (test code = 4765609081) 7 mg/dL 7-23 GLUCOSE (test code = 2481344809) 79 mg/dL 70-110 CREATININE (test code = 2160-0) 0.37 mg/dL 0.50-1.04 L CALCIUM (test code = 0173065761) 8.1 mg/dL 8.6-10.6 L eGFR (test code = 22070-2) 108.0 mL/min/1.73m2 CKD-EPI eGFR (2020). Assuming creatinine has been stable day-to-day for at least three months, the eGFR indicates Category G1 (>= 90 mL/min/1.73 m2) Lab Interpretation (test code = 56978-2) Abnormal [facility] Metabolic Panel (NA, K, CL, CO2, GLUCOSE, BUN, CREATININE, CA)2024-10-24 12:18:22* Test Item Value Reference Range Interpretation Comme nts NA (test code = 3289348444) 141 mmol/L 135-145 K (test code = 2046190309) 4.1 mmol/L 3.5-5.0 CL (test code = 0289990968) 112 mmol/L 98-108 H CO2 TOTAL (test code = 7945360387) 29 mmol/L 23-31 AGAP (test code = 4345636972) 2-16 L BUN (test code = 9206254225) 7 mg/dL 7-23 GLUCOSE (test code = 2604430409) 79 mg/dL 70-110 CREATININE (test code = 2160-0) 0.37 mg/dL 0.50-1.04 L CALCIUM (test code = 0454305487) 8.1 mg/dL 8.6-10.6 L eGFR (test code = 46124-1) 108.0 mL/min/1.73m2 CKD-EPI eGFR (2020). Assuming creatinine has been stable day-to-day for at least three months, the eGFR indicates Category G1 (>= 90 mL/min/1.73 m2) Lab Interpretation (test code = 87025-7) [facility]* Test Item Value Reference Range Interpretation Comme nts MAGNESIUM (test code = 0885075513) 1.8 mg/dL 1.7-2.4 Lab Interpretation (test cod e = 65163-6) [facility]:17:01* Test Item Value Reference Range Interpretation Comme nts PHOSPHORUS (test code = 2918275217) 3.1 mg/dL 2.5-5.0 Lab Interpretation (test cod e = 90448-0) [facility]:01* Test Item Value Reference Range Interpretation Comme nts MAGNESIUM (test code = 9334801287) 1.8 mg/dL 1.7-2.4 Lab Interpretation (test cod e = 50234-0) [facility] 12:17:01* Test Item Value Reference Range Interpretation Comme nts PHOSPHORUS (test code = 6772188648) 3.1 mg/dL 2.5-5.0 Lab Interpretation (test cod e = 36126-9) [facility] [id number] 11:51:00* Test Item Value Reference Range Interpretation Comme nts WBC (test code = 6690-2) 8.53 4.30-11.10 RBC (test code = 789-8) 2.87 3.93-5.25 L HGB (test code = 718-7) 8.4 g/dL 11.6-15.0 L HCT (test code = 4544-3) 26.2 % 35.7-45.2 L MCV (test code = 787-2) 91.3 fL 80.6-95.5 MCH (test code = 785-6) 29.3 pg 25.9-32.8 MCHC (test code = 786-4) 32.1 g/dL 31.6-35.1 RDW-SD (test code = 83343-9) 59.6 fL 39.0-49.9 H RDW-CV (test code = 788-0) 18.4 % 12.0-15.5 H PLT (test code = 777-3) 224 166-358 MPV (test code = 17345-9) 10.5 fL 9.5-12.9 NRBC/100 WBC (test code = 8644226057) 0.0 0.0-10.0 NRBC x10^3 (test code = 1621260766) See_Comment [Automated messa ge] The system which generated this result transmitted reference range: 10*3/?L. The reference range was not used to interpret this result as normal/abnormal. GRAN MAT (NEUT) % (test code = 770-8) 47.1 % IMM GRAN % (test code = 0392850240) 0.90 % LYMPH % (test code = 736-9) 34.0 % MONO % (test code = 5905-5) 11.6 % EOS % (test code = 713-8) 5.3 % BASO % (test code = 706-2) 1.1 % GRAN MAT x10^3(ANC) (test code = 5642505216) 4.02 10*3/uL 1.88-7.09 IMM GRAN x10^3 (test code = 2664552574) 0.08 10*3/uL 0.00-0.06 H LYMPH x10^3 (test code = 731-0) 2.90 10*3/uL 1.32-3.29 MONO x10^3 (test code = 742-7) 0.99 10*3/uL 0.33-0.92 H EOS x10^3 (test code = 711-2) 0.45 10*3/uL 0.03-0.39 H BASO x10^3 (test code = 704-7) 0.09 10*3/uL 0.01-0.07 H Lab Interpretation (test code = 44512-7) Abnormal [facility] with Gdrh7634-56-06 11:51:00* Test Item Value Reference Range Interpretation Comme nts WBC (test code = 6690-2) 8.53 4.30-11.10 RBC (test code = 789-8) 2.87 3.93-5.25 L HGB (test code = 718-7) 8.4 g/dL 11.6-15.0 L HCT (test code = 4544-3) 26.2 % 35.7-45.2 L MCV (test code = 787-2) 91.3 fL 80.6-95.5 MCH (test code = 785-6) 29.3 pg 25.9-32.8 MCHC (test code = 786-4) 32.1 g/dL 31.6-35.1 RDW-SD (test code = 25512-6) 59.6 fL 39.0-49.9 H RDW-CV (test code = 788-0) 18.4 % 12.0-15.5 H PLT (test code = 777-3) 224 166-358 MPV (test code = 33954-7) 10.5 fL 9.5-12.9 NRBC/100 WBC (test code = 2655990950) 0.0 0.0-10.0 NRBC x10^3 (test code = 2827866289) See_Comment [Automated messa ge] The system which generated this result transmitted reference range: 10*3/?L. The reference range was not used to interpret this result as normal/abnormal. GRAN MAT (NEUT) % (test code = 770-8) 47.1 % IMM GRAN % (test code = 3594684280) 0.90 % LYMPH % (test code = 736-9) 34.0 % MONO % (test code = 5905-5) 11.6 % EOS % (test code = 713-8) 5.3 % BASO % (test code = 706-2) 1.1 % GRAN MAT x10^3(ANC) (test code = 4277570640) 4.02 10*3/uL 1.88-7.09 IMM GRAN x10^3 (test code = 6844157470) 0.08 10*3/uL 0.00-0.06 H LYMPH x10^3 (test code = 731-0) 2.90 10*3/uL 1.32-3.29 MONO x10^3 (test code = 742-7) 0.99 10*3/uL 0.33-0.92 H EOS x10^3 (test code = 711-2) 0.45 10*3/uL 0.03-0.39 H BASO x10^3 (test code = 704-7) 0.09 10*3/uL 0.01-0.07 H Lab Interpretation (test code = 42650-9) Abnormal [facility] Metabolic Panel (NA, K, CL, CO2, GLUCOSE, BUN, CREATININE, CA)2024-10-23 12:25:26* Test Item Value Reference Range Interpretation Comme nts NA (test code = 6192146060) 138 mmol/L 135-145 K (test code = 9666573492) 3.9 mmol/L 3.5-5.0 CL (test code = 1693701146) 113 mmol/L 98-108 H CO2 TOTAL (test code = 0083941026) 28 mmol/L 23-31 AGAP (test code = 9741110739) 2-16 L BUN (test code = 6957902656) 8 mg/dL 7-23 GLUCOSE (test code = 4631504993) 83 mg/dL 70-110 CREATININE (test code = 2160-0) 0.39 mg/dL 0.50-1.04 L CALCIUM (test code = 5622646986) 8.3 mg/dL 8.6-10.6 L eGFR (test code = 64673-1) 106.6 mL/min/1.73m2 CKD-EPI eGFR (2020). Assuming creatinine has been stable day-to-day for at least three months, the eGFR indicates Category G1 (>= 90 mL/min/1.73 m2) Lab Interpretation (test code = 22197-0) Abnormal [facility] Metabolic Panel (NA, K, CL, CO2, GLUCOSE, BUN, CREATININE, CA)2024-10-23 12:25:26* Test Item Value Reference Range Interpretation Comme nts NA (test code = 9169631383) 138 mmol/L 135-145 K (test code = 7881805892) 3.9 mmol/L 3.5-5.0 CL (test code = 1808039681) 113 mmol/L 98-108 H CO2 TOTAL (test code = 3266775252) 28 mmol/L 23-31 AGAP (test code = 4391708512) 2-16 L BUN (test code = 1526779419) 8 mg/dL 7-23 GLUCOSE (test code = 8636807274) 83 mg/dL 70-110 CREATININE (test code = 2160-0) 0.39 mg/dL 0.50-1.04 L CALCIUM (test code = 5158585047) 8.3 mg/dL 8.6-10.6 L eGFR (test code = 23909-9) 106.6 mL/min/1.73m2 CKD-EPI eGFR (2020). Assuming creatinine has been stable day-to-day for at least three months, the eGFR indicates Category G1 (>= 90 mL/min/1.73 m2) Lab Interpretation (test code = 50648-2) [facility]:31* Test Item Value Reference Range Interpretation Comme nts MAGNESIUM (test code = 6331250667) 1.9 mg/dL 1.7-2.4 Lab Interpretation (test cod e = 91688-9) [facility] 12:24:31* Test Item Value Reference Range Interpretation Comme nts PHOSPHORUS (test code = 8896184406) 3.3 mg/dL 2.5-5.0 Lab Interpretation (test cod e = 20236-3) [facility] 12:24:31* Test Item Value Reference Range Interpretation Comme nts MAGNESIUM (test code = 1917034987) 1.9 mg/dL 1.7-2.4 Lab Interpretation (test cod e = 52370-3) [facility] 12:24:31* Test Item Value Reference Range Interpretation Comme nts PHOSPHORUS (test code = 3554765232) 3.3 mg/dL 2.5-5.0 Lab Interpretation (test cod e = 96926-1) Normal [facility] with Xuci7737-57-74 12:02:08* Test Item Value Reference Range Interpretation Comme nts WBC (test code = 6690-2) 8.08 4.30-11.10 RBC (test code = 789-8) 2.83 3.93-5.25 L HGB (test code = 718-7) 8.3 g/dL 11.6-15.0 L HCT (test code = 4544-3) 26.2 % 35.7-45.2 L MCV (test code = 787-2) 92.6 fL 80.6-95.5 MCH (test code = 785-6) 29.3 pg 25.9-32.8 MCHC (test code = 786-4) 31.7 g/dL 31.6-35.1 RDW-SD (test code = 58514-7) 59.0 fL 39.0-49.9 H RDW-CV (test code = 788-0) 17.9 % 12.0-15.5 H PLT (test code = 777-3) 193 166-358 MPV (test code = 13661-5) 10.6 fL 9.5-12.9 NRBC/100 WBC (test code = 1566371836) 0.0 0.0-10.0 NRBC x10^3 (test code = 1403858196) See_Comment [Automated messa ge] The system which generated this result transmitted reference range: 10*3/?L. The reference range was not used to interpret this result as normal/abnormal. GRAN MAT (NEUT) % (test code = 770-8) 69.4 % IMM GRAN % (test code = 0887511002) 0.90 % LYMPH % (test code = 736-9) 20.0 % MONO % (test code = 5905-5) 9.4 % EOS % (test code = 713-8) 0.1 % BASO % (test code = 706-2) 0.2 % GRAN MAT x10^3(ANC) (test code = 7761273753) 5.60 10*3/uL 1.88-7.09 IMM GRAN x10^3 (test code = 5336162448) 0.07 10*3/uL 0.00-0.06 H LYMPH x10^3 (test code = 731-0) 1.62 10*3/uL 1.32-3.29 MONO x10^3 (test code = 742-7) 0.76 10*3/uL 0.33-0.92 EOS x10^3 (test code = 711-2) 0.03-0.39 L BASO x10^3 (test code = 704-7) 0.01-0.07 Lab Interpretation (test code = 96379-3) Abnormal [facility] with Dlak3357-62-15 12:02:08* Test Item Value Reference Range Interpretation Comme nts WBC (test code = 6690-2) 8.08 4.30-11.10 RBC (test code = 789-8) 2.83 3.93-5.25 L HGB (test code = 718-7) 8.3 g/dL 11.6-15.0 L HCT (test code = 4544-3) 26.2 % 35.7-45.2 L MCV (test code = 787-2) 92.6 fL 80.6-95.5 MCH (test code = 785-6) 29.3 pg 25.9-32.8 MCHC (test code = 786-4) 31.7 g/dL 31.6-35.1 RDW-SD (test code = 59038-9) 59.0 fL 39.0-49.9 H RDW-CV (test code = 788-0) 17.9 % 12.0-15.5 H PLT (test code = 777-3) 193 166-358 MPV (test code = 50763-0) 10.6 fL 9.5-12.9 NRBC/100 WBC (test code = 8681371231) 0.0 0.0-10.0 NRBC x10^3 (test code = 2718718773) See_Comment [Automated messa ge] The system which generated this result transmitted reference range: 10*3/?L. The reference range was not used to interpret this result as normal/abnormal. GRAN MAT (NEUT) % (test code = 770-8) 69.4 % IMM GRAN % (test code = 9962452208) 0.90 % LYMPH % (test code = 736-9) 20.0 % MONO % (test code = 5905-5) 9.4 % EOS % (test code = 713-8) 0.1 % BASO % (test code = 706-2) 0.2 % GRAN MAT x10^3(ANC) (test code = 8288164707) 5.60 10*3/uL 1.88-7.09 IMM GRAN x10^3 (test code = 8693150847) 0.07 10*3/uL 0.00-0.06 H LYMPH x10^3 (test code = 731-0) 1.62 10*3/uL 1.32-3.29 MONO x10^3 (test code = 742-7) 0.76 10*3/uL 0.33-0.92 EOS x10^3 (test code = 711-2) 0.03-0.39 L BASO x10^3 (test code = 704-7) 0.01-0.07 Lab Interpretation (test code = 70186-1) Abnormal [facility] GLUCOSE (AUTOMATED)2024-10-22 18:36:51* Test Item Value Reference Range Interpretation Comme nts POCT GLU (test code = 9834018244) 86 mg/dL 70-110 Lab Interpretation (test cod e = 27885-4) Normal [facility] GLUCOSE (AUTOMATED)2024-10-22 18:36:51* Test Item Value Reference Range Interpretation Comme nts POCT GLU (test code = 1033044687) 86 mg/dL 70-110 Lab Interpretation (test cod e = 05127-7) Normal [facility] Metabolic Panel (NA, K, CL, CO2, GLUCOSE, BUN, CREATININE, CA)2024-10-22 11:37:39* Test Item Value Reference Range Interpretation Comme nts NA (test code = 1043748857) 139 mmol/L 135-145 K (test code = 8841352095) 3.4 mmol/L 3.5-5.0 L CL (test code = 9813119258) 112 mmol/L 98-108 H CO2 TOTAL (test code = 6955542988) 27 mmol/L 23-31 AGAP (test code = 9071948804) 2-16 L BUN (test code = 5870330528) 8 mg/dL 7-23 GLUCOSE (test code = 9514166320) 102 mg/dL 70-110 CREATININE (test code = 2160-0) 0.42 mg/dL 0.50-1.04 L CALCIUM (test code = 6823856934) 8.1 mg/dL 8.6-10.6 L eGFR (test code = 52938-8) 104.7 mL/min/1.73m2 CKD-EPI eGFR (2020). Assuming creatinine has been stable day-to-day for at least three months, the eGFR indicates Category G1 (>= 90 mL/min/1.73 m2) Lab Interpretation (test code = 41182-2) Abnormal [facility] Metabolic Panel (NA, K, CL, CO2, GLUCOSE, BUN, CREATININE, CA)2024-10-22 11:37:39* Test Item Value Reference Range Interpretation Comme nts NA (test code = 8953477054) 139 mmol/L 135-145 K (test code = 2558717409) 3.4 mmol/L 3.5-5.0 L CL (test code = 3985990619) 112 mmol/L 98-108 H CO2 TOTAL (test code = 6052871157) 27 mmol/L 23-31 AGAP (test code = 5785519629) 2-16 L BUN (test code = 0440373940) 8 mg/dL 7-23 GLUCOSE (test code = 2634173524) 102 mg/dL 70-110 CREATININE (test code = 2160-0) 0.42 mg/dL 0.50-1.04 L CALCIUM (test code = 7096508786) 8.1 mg/dL 8.6-10.6 L eGFR (test code = 74960-7) 104.7 mL/min/1.73m2 CKD-EPI eGFR (2020). Assuming creatinine has been stable day-to-day for at least three months, the eGFR indicates Category G1 (>= 90 mL/min/1.73 m2) Lab Interpretation (test code = 26278-9) [facility]:36:17* Test Item Value Reference Range Interpretation Comme nts MAGNESIUM (test code = 3467534581) 1.8 mg/dL 1.7-2.4 Lab Interpretation (test cod e = 73786-3) [facility] 11:36:17* Test Item Value Reference Range Interpretation Comme nts PHOSPHORUS (test code = 0499909711) 3.3 mg/dL 2.5-5.0 Lab Interpretation (test cod e = 96413-4) [facility]:36:17* Test Item Value Reference Range Interpretation Comme nts MAGNESIUM (test code = 7775817115) 1.8 mg/dL 1.7-2.4 Lab Interpretation (test cod e = 91007-0) [facility] 11:36:17* Test Item Value Reference Range Interpretation Comme nts PHOSPHORUS (test code = 7532390875) 3.3 mg/dL 2.5-5.0 Lab Interpretation (test cod e = 42685-8) [facility] Comt0999-41-97 11:26:56* Test Item Value Reference Range Interpretation Comme nts WBC (test code = 6690-2) 7.49 4.30-11.10 RBC (test code = 789-8) 2.98 3.93-5.25 L HGB (test code = 718-7) 8.7 g/dL 11.6-15.0 L HCT (test code = 4544-3) 26.7 % 35.7-45.2 L MCV (test code = 787-2) 89.6 fL 80.6-95.5 MCH (test code = 785-6) 29.2 pg 25.9-32.8 MCHC (test code = 786-4) 32.6 g/dL 31.6-35.1 RDW-SD (test code = 97253-9) 55.5 fL 39.0-49.9 H RDW-CV (test code = 788-0) 17.6 % 12.0-15.5 H PLT (test code = 777-3) 179 166-358 MPV (test code = 88805-6) 10.8 fL 9.5-12.9 NRBC/100 WBC (test code = 7865672161) 0.0 0.0-10.0 NRBC x10^3 (test code = 4178128686) See_Comment [Automated messa ge] The system which generated this result transmitted reference range: 10*3/?L. The reference range was not used to interpret this result as normal/abnormal. GRAN MAT (NEUT) % (test code = 770-8) 43.5 % IMM GRAN % (test code = 7182355929) 0.90 % LYMPH % (test code = 736-9) 32.8 % MONO % (test code = 5905-5) 15.6 % EOS % (test code = 713-8) 6.5 % BASO % (test code = 706-2) 0.7 % GRAN MAT x10^3(ANC) (test code = 0919559472) 3.25 10*3/uL 1.88-7.09 IMM GRAN x10^3 (test code = 1931716235) 0.07 10*3/uL 0.00-0.06 H LYMPH x10^3 (test code = 731-0) 2.46 10*3/uL 1.32-3.29 MONO x10^3 (test code = 742-7) 1.17 10*3/uL 0.33-0.92 H EOS x10^3 (test code = 711-2) 0.49 10*3/uL 0.03-0.39 H BASO x10^3 (test code = 704-7) 0.05 10*3/uL 0.01-0.07 Lab Interpretation (test code = 85365-4) Abnormal [facility] with [id number] 11:26:56* Test Item Value Reference Range Interpretation Comme nts WBC (test code = 6690-2) 7.49 4.30-11.10 RBC (test code = 789-8) 2.98 3.93-5.25 L HGB (test code = 718-7) 8.7 g/dL 11.6-15.0 L HCT (test code = 4544-3) 26.7 % 35.7-45.2 L MCV (test code = 787-2) 89.6 fL 80.6-95.5 MCH (test code = 785-6) 29.2 pg 25.9-32.8 MCHC (test code = 786-4) 32.6 g/dL 31.6-35.1 RDW-SD (test code = 67389-3) 55.5 fL 39.0-49.9 H RDW-CV (test code = 788-0) 17.6 % 12.0-15.5 H PLT (test code = 777-3) 179 166-358 MPV (test code = 20301-3) 10.8 fL 9.5-12.9 NRBC/100 WBC (test code = 0167019911) 0.0 0.0-10.0 NRBC x10^3 (test code = 6500592584) See_Comment [Automated messa ge] The system which generated this result transmitted reference range: 10*3/?L. The reference range was not used to interpret this result as normal/abnormal. GRAN MAT (NEUT) % (test code = 770-8) 43.5 % IMM GRAN % (test code = 8403882592) 0.90 % LYMPH % (test code = 736-9) 32.8 % MONO % (test code = 5905-5) 15.6 % EOS % (test code = 713-8) 6.5 % BASO % (test code = 706-2) 0.7 % GRAN MAT x10^3(ANC) (test code = 8970963604) 3.25 10*3/uL 1.88-7.09 IMM GRAN x10^3 (test code = 9690715274) 0.07 10*3/uL 0.00-0.06 H LYMPH x10^3 (test code = 731-0) 2.46 10*3/uL 1.32-3.29 MONO x10^3 (test code = 742-7) 1.17 10*3/uL 0.33-0.92 H EOS x10^3 (test code = 711-2) 0.49 10*3/uL 0.03-0.39 H BASO x10^3 (test code = 704-7) 0.05 10*3/uL 0.01-0.07 Lab Interpretation (test code = 16330-3) [facility] 11:22:36* Test Item Value Reference Range Interpretation Comme nts MAGNESIUM (test code = 0086239530) 1.7 mg/dL 1.7-2.4 Lab Interpretation (test cod e = 16731-7) [facility] 11:22:36* Test Item Value Reference Range Interpretation Comme nts PHOSPHORUS (test code = 4534318482) 3.2 mg/dL 2.5-5.0 Lab Interpretation (test cod e = 23271-7) [facility] (NA, K, CL, CO2, GLUCOSE, BUN, CREATININE, CA)2024-10-21 11:22:36* Test Item Value Reference Range Interpretation Comme nts NA (test code = 1954486554) 141 mmol/L 135-145 K (test code = 5479014882) 3.6 mmol/L 3.5-5.0 CL (test code = 9234317995) 114 mmol/L 98-108 H CO2 TOTAL (test code = 3207332977) 26 mmol/L 23-31 AGAP (test code = 2041789589) 1 2-16 L BUN (test code = 1758265627) 6 mg/dL 7-23 L GLUCOSE (test code = 9821596967) 75 mg/dL 70-110 CREATININE (test code = 2160-0) 0.37 mg/dL 0.50-1.04 L CALCIUM (test code = 0124515167) 8.2 mg/dL 8.6-10.6 L eGFR (test code = 36515-0) 108.0 mL/min/1.73m2 CKD-EPI eGFR (2020). Assuming creatinine has been stable day-to-day for at least three months, the eGFR indicates Category G1 (>= 90 mL/min/1.73 m2) Lab Interpretation (test code = 74904-7) [facility] 11:22:36* Test Item Value Reference Range Interpretation Comme nts MAGNESIUM (test code = 7146124753) 1.7 mg/dL 1.7-2.4 Lab Interpretation (test cod e = 76910-5) [facility] 11:22:36* Test Item Value Reference Range Interpretation Comme nts PHOSPHORUS (test code = 7074624964) 3.2 mg/dL 2.5-5.0 Lab Interpretation (test cod e = 12461-6) Normal [facility] Metabolic Panel (NA, K, CL, CO2, GLUCOSE, BUN, CREATININE, CA)2024-10-21 11:22:36* Test Item Value Reference Range Interpretation Comme nts NA (test code = 1803628534) 141 mmol/L 135-145 K (test code = 3216577363) 3.6 mmol/L 3.5-5.0 CL (test code = 8972495796) 114 mmol/L 98-108 H CO2 TOTAL (test code = 1489284414) 26 mmol/L 23-31 AGAP (test code = 6040582846) 1 2-16 L BUN (test code = 9644501971) 6 mg/dL 7-23 L GLUCOSE (test code = 3554555459) 75 mg/dL 70-110 CREATININE (test code = 2160-0) 0.37 mg/dL 0.50-1.04 L CALCIUM (test code = 2558500102) 8.2 mg/dL 8.6-10.6 L eGFR (test code = 48999-4) 108.0 mL/min/1.73m2 CKD-EPI eGFR (2020). Assuming creatinine has been stable day-to-day for at least three months, the eGFR indicates Category G1 (>= 90 mL/min/1.73 m2) Lab Interpretation (test code = 12839-2) [facility] Arwe0600-58-78 11:10:13* Test Item Value Reference Range Interpretation Comme nts WBC (test code = 6690-2) 7.35 4.30-11.10 RBC (test code = 789-8) 3.04 3.93-5.25 L HGB (test code = 718-7) 8.8 g/dL 11.6-15.0 L HCT (test code = 4544-3) 26.7 % 35.7-45.2 L MCV (test code = 787-2) 87.8 fL 80.6-95.5 MCH (test code = 785-6) 28.9 pg 25.9-32.8 MCHC (test code = 786-4) 33.0 g/dL 31.6-35.1 RDW-SD (test code = 77283-1) 53.5 fL 39.0-49.9 H RDW-CV (test code = 788-0) 17.4 % 12.0-15.5 H PLT (test code = 777-3) 163 166-358 L MPV (test code = 14748-8) 10.5 fL 9.5-12.9 NRBC/100 WBC (test code = 4778808443) 0.0 0.0-10.0 NRBC x10^3 (test code = 2338586788) See_Comment [Automated messa ge] The system which generated this result transmitted reference range: 10*3/?L. The reference range was not used to interpret this result as normal/abnormal. GRAN MAT (NEUT) % (test code = 770-8) 46.2 % IMM GRAN % (test code = 4096880041) 0.70 % LYMPH % (test code = 736-9) 31.0 % MONO % (test code = 5905-5) 13.3 % EOS % (test code = 713-8) 8.0 % BASO % (test code = 706-2) 0.8 % GRAN MAT x10^3(ANC) (test code = 5160396328) 3.39 10*3/uL 1.88-7.09 IMM GRAN x10^3 (test code = 4641822495) 0.05 10*3/uL 0.00-0.06 LYMPH x10^3 (test code = 731-0) 2.28 10*3/uL 1.32-3.29 MONO x10^3 (test code = 742-7) 0.98 10*3/uL 0.33-0.92 H EOS x10^3 (test code = 711-2) 0.59 10*3/uL 0.03-0.39 H BASO x10^3 (test code = 704-7) 0.06 10*3/uL 0.01-0.07 Lab Interpretation (test code = 45822-1) Abnormal [facility] with [id number] 11:10:13* Test Item Value Reference Range Interpretation Comme nts WBC (test code = 6690-2) 7.35 4.30-11.10 RBC (test code = 789-8) 3.04 3.93-5.25 L HGB (test code = 718-7) 8.8 g/dL 11.6-15.0 L HCT (test code = 4544-3) 26.7 % 35.7-45.2 L MCV (test code = 787-2) 87.8 fL 80.6-95.5 MCH (test code = 785-6) 28.9 pg 25.9-32.8 MCHC (test code = 786-4) 33.0 g/dL 31.6-35.1 RDW-SD (test code = 49161-0) 53.5 fL 39.0-49.9 H RDW-CV (test code = 788-0) 17.4 % 12.0-15.5 H PLT (test code = 777-3) 163 166-358 L MPV (test code = 05654-3) 10.5 fL 9.5-12.9 NRBC/100 WBC (test code = 1689637086) 0.0 0.0-10.0 NRBC x10^3 (test code = 3968145055) See_Comment [Automated messa ge] The system which generated this result transmitted reference range: 10*3/?L. The reference range was not used to interpret this result as normal/abnormal. GRAN MAT (NEUT) % (test code = 770-8) 46.2 % IMM GRAN % (test code = 5470543610) 0.70 % LYMPH % (test code = 736-9) 31.0 % MONO % (test code = 5905-5) 13.3 % EOS % (test code = 713-8) 8.0 % BASO % (test code = 706-2) 0.8 % GRAN MAT x10^3(ANC) (test code = 5952683392) 3.39 10*3/uL 1.88-7.09 IMM GRAN x10^3 (test code = 6230267538) 0.05 10*3/uL 0.00-0.06 LYMPH x10^3 (test code = 731-0) 2.28 10*3/uL 1.32-3.29 MONO x10^3 (test code = 742-7) 0.98 10*3/uL 0.33-0.92 H EOS x10^3 (test code = 711-2) 0.59 10*3/uL 0.03-0.39 H BASO x10^3 (test code = 704-7) 0.06 10*3/uL 0.01-0.07 Lab Interpretation (test code = 32336-6) Abnormal [facility] acute hospital Abdomen limited with [id number] 23:04:00US ABDOMEN LIMITED WITH DOPPLER 10/18/2024 4:03 PM HISTORY: evaluate for portal vein thrombosis, RUQUS COMPARISON: Abdomen ultrasound dated 01/14/2023. FINDINGS: LIVER: No focal lesions in the visualized portion of the liver. Normalhepatopetal ?flow within the main portal vein. Portal vein velocity w as20.4 cm/s. Main portal vein diameter: 1.4 cm. GALLBLADDER: No cholelithiasis, or gallbladder distention. Gallbladder evy thickened measuring 4 mm. Pericholecystic free fluid is noted. Layeringsludge within the gallbladder. No sonographic Workman's sign. The commonbile duct measures 0.3 cm. SPLEEN: Measures 12 cm cm.General acute hospital Abdomen limited with doppler 2024-10-18 23:04:00US ABDOMEN LIMITED WITH DOPPLER 10/18/2024 4:03 PM HISTORY: evaluate for portal vein thrombosis, RUQUS COMPARISON: Abdomen ultrasound dated 01/14/2023. FINDINGS: LIVER: No focal lesions in the visualized portion of the liver. Normalhepatopetal ?flow within the main portal vein. Portal vein velocity was20.4 cm/s. Main portal vein diameter: 1.4 cm. GALLBLADDER: No cholelithiasis, or gallbladder distention. Gallbladder evy thickened measuring 4 mm. Pericholecystic free fluid is noted. Layeringsludge within the gallbladder. No sonographic Workman's sign. The commonbile duct measures 0.3 cm. SPLEEN: Measures 12 cm cm.General acute hospital Elastography base [id number] 18:51:47EXAM: US ELASTOGRAPHY BASE FUNCT HISTORY: 69 years-old Female; Provided indication: concern for livercirrhosis . TECHNIQUE: Limited abdominal ultrasound and shear [facility]. [employer] images were obtained forthe record. COMPARISON: None FINDINGS: The liver is 10.5 cm in length.The contour is subtly micronodular.No focal lesion is seen within exam limitations.The main portal vein is 0.7 cm in diameter and has patent hepatopetal flow. No biliary ductal dilatation is seen. The common duct is 0.3 cm indiameter. The gallbladder has a small volume of sludge and is otherwise unremarkable. A small volume of perihepatic free fluid is visualized. The spleen is enlarged at 13.5 cm. Liver Stiffness: Median 4.76 kPa; IQR/M: 32%Shear Wave Velocity: Median 1.24 m/s; IQR/M 17%[facility] base [id number] 18:51:47EXAM: US ELASTOGRAPHY BASE FUNCT HISTORY: 69 years-old Female; Provided indication: concern for livercirrhosis . TECHNIQUE: Limited abdominal ultrasound and shear [facility]. [employer] images were obtained forthe record. COMPARISON: None FINDINGS: The liver is 10.5 cm in length.The contour is subtly micronodular.No focal lesion is seen within exam limitations.The main portal vein is 0.7 cm in diameter and has patent hepatopetal flow. No biliary ductal dilatation is seen. The common duct is 0.3 cm indiameter. The gallbladder has a small volume of sludge and is otherwise unremarkable. A small volume of perihepatic free fluid is visualized. The spleen is enlarged at 13.5 cm. Liver Stiffness: Median 4.76 kPa; IQR/M: 32%Shear Wave Velocity: Median 1.24 m/s; IQR/M 17%[facility] base [id number] 18:51:47EXAM: US ELASTOGRAPHY BASE FUNCT HISTORY: 69 years-old Female; Provided indication: concern for livercirrhosis . TECHNIQUE: Limited abdominal ultrasound and shear [facility]. [employer] images were obtained forthe record. COMPARISON: None FINDINGS: The liver is 10.5 cm in length.The contour is subtly micronodular.No focal lesion is seen within exam limitations.The main portal vein is 0.7 cm in diameter and has patent hepatopetal flow. No biliary ductal dilatation is seen. The common duct is 0.3 cm indiameter. The gallbladder has a small volume of sludge and is otherwise unremarkable. A small volume of perihepatic free fluid is visualized. The spleen is enlarged at 13.5 cm. Liver Stiffness: Median 4.76 kPa; IQR/M: 32%Shear Wave Velocity: Median 1.24 m/s; IQR/M 17%[facility] El[facility] base [id number] 18:51:47EXAM: US ELASTOGRAPHY BASE FUNCT HISTORY: 69 years-old Female; Provided indication: concern for livercirrhosis . TECHNIQUE: Limited abdominal ultrasound and shear wave Elastography of theright upper quadrant was performed. [facility] [employer] [facility] COMPARISON: None FINDINGS: The liver is 10.5 cm in length.The contour is subtly micronodular.No focal lesion is seen within exam limitations.The main portal vein is 0.7 cm in diameter and has patent hepatopetal flow. No biliary ductal dilatation is seen. The common duct is 0.3 cm indiameter. The gallbladder has a small volume of sludge and is otherwise unremarkable. A small volume of perihepatic free fluid is visualized. The spleen is enlarged at 13.5 cm. Liver Stiffness: Median 4.76 kPa; IQR/M: 32%Shear Wave Velocity: Median 1.24 m/s; IQR/M 17%[facility] Time OR(non-reportable)2024-10-16 18:32:40These images do not require a Radiology diagnostic report.[facility] Time OR(non-reportable)2024-10-16 18:32:40These images do not require a Radiology diagnostic report.[facility] Time OR(non-reportable)2024-10-16 18:32:40These images do not require a Radiology diagnostic report.[facility] Time OR(non-reportable) 2024-10-16 18:32:40These images do not require a Radiology diagnostic report. [facility]2024-10-16 16:52:00* Test Item Value Reference Range Interpretation Comme nts POCT GLU (test code = 5495787713) 102 mg/dL 70-110 Lab Interpretation (test cod e = 52412-7) Normal [facility] GLUCOSE (AUTOMATED)2024-10-16 16:52:00* Test Item Value Reference Range Interpretation Comme nts POCT GLU (test code = 4587832927) 102 mg/dL 70-110 Lab Interpretation (test cod e = 76225-4) Normal [facility] GLUCOSE (AUTOMATED)2024-10-16 16:52:00* Test Item Value Reference Range Interpretation Comme nts POCT GLU (test code = 2481063045) 102 mg/dL 70-110 Lab Interpretation (test cod e = 87743-9) Normal [facility] GLUCOSE (AUTOMATED)2024-10-16 16:52:00* Test Item Value Reference Range Interpretation Comme nts POCT GLU (test code = 2762898420) 102 mg/dL 70-110 Lab Interpretation (test cod e = 02462-2) [facility] Mrfip2241-41-11 10:39:13* Test Item Value Reference Range Interpretation Comme nts VANCO RANDOM (test code = 75032-8) 17.0 ug/mL [facility] [id number] 10:39:13* Test Item Value Reference Range Interpretation Comme nts VANCO RANDOM (test code = 23558-9) 17.0 ug/mL [facility] [id number] 10:39:13* Test Item Value Reference Range Interpretation Comme nts VANCO RANDOM (test code = 46054-4) 17.0 ug/mL [facility] Hospital[facility] Random [id number] 10:39:13* Test Item Value Reference Range Interpretation Comme nts VANCO RANDOM (test code = 81629-6) 17.0 ug/mL [facility] with Oiil8065-92-60 10:35:02* Test Item Value Reference Range Interpretation Comme nts WBC (test code = 6690-2) 4.91 4.30-11.10 RBC (test code = 789-8) 3.30 3.93-5.25 L HGB (test code = 718-7) 9.7 g/dL 11.6-15.0 L HCT (test code = 4544-3) 29.0 % 35.7-45.2 L MCV (test code = 787-2) 87.9 fL 80.6-95.5 MCH (test code = 785-6) 29.4 pg 25.9-32.8 MCHC (test code = 786-4) 33.4 g/dL 31.6-35.1 RDW-SD (test code = 99586-2) 47.9 fL 39.0-49.9 RDW-CV (test code = 788-0) 15.5 % 12.0-15.5 PLT (test code = 777-3) 129 166-358 L MPV (test code = 38552-8) 10.1 fL 9.5-12.9 NRBC/100 WBC (test code = 5967148524) 0.0 0.0-10.0 NRBC x10^3 (test code = 2836824430) See_Comment [Automated messa ge] The system which generated this result transmitted reference range: 10*3/?L. The reference range was not used to interpret this result as normal/abnormal. GRAN MAT (NEUT) % (test code = 770-8) 36.1 % IMM GRAN % (test code = 5883226599) 1.00 % LYMPH % (test code = 736-9) 44.6 % MONO % (test code = 5905-5) 12.4 % EOS % (test code = 713-8) 5.1 % BASO % (test code = 706-2) 0.8 % GRAN MAT x10^3(ANC) (test code = 5310586645) 1.77 10*3/uL 1.88-7.09 L IMM GRAN x10^3 (test code = 8969819026) 0.05 10*3/uL 0.00-0.06 LYMPH x10^3 (test code = 731-0) 2.19 10*3/uL 1.32-3.29 MONO x10^3 (test code = 742-7) 0.61 10*3/uL 0.33-0.92 EOS x10^3 (test code = 711-2) 0.25 10*3/uL 0.03-0.39 BASO x10^3 (test code = 704-7) 0.04 10*3/uL 0.01-0.07 LG GRAN LYMPHS (test code = 2314094160) Moderate Rare A Lab Interpretation (test code = 67793-4) Abnormal [facility] with Pkoo2863-18-26 10:35:02* Test Item Value Reference Range Interpretation Comme nts WBC (test code = 6690-2) 4.91 4.30-11.10 RBC (test code = 789-8) 3.30 3.93-5.25 L HGB (test code = 718-7) 9.7 g/dL 11.6-15.0 L HCT (test code = 4544-3) 29.0 % 35.7-45.2 L MCV (test code = 787-2) 87.9 fL 80.6-95.5 MCH (test code = 785-6) 29.4 pg 25.9-32.8 MCHC (test code = 786-4) 33.4 g/dL 31.6-35.1 RDW-SD (test code = 54063-1) 47.9 fL 39.0-49.9 RDW-CV (test code = 788-0) 15.5 % 12.0-15.5 PLT (test code = 777-3) 129 166-358 L MPV (test code = 30247-5) 10.1 fL 9.5-12.9 NRBC/100 WBC (test code = 9695271292) 0.0 0.0-10.0 NRBC x10^3 (test code = 5278124058) See_Comment [Automated messa ge] The system which generated this result transmitted reference range: 10*3/?L. The reference range was not used to interpret this result as normal/abnormal. GRAN MAT (NEUT) % (test code = 770-8) 36.1 % IMM GRAN % (test code = 1144672545) 1.00 % LYMPH % (test code = 736-9) 44.6 % MONO % (test code = 5905-5) 12.4 % EOS % (test code = 713-8) 5.1 % BASO % (test code = 706-2) 0.8 % GRAN MAT x10^3(ANC) (test code = 4814137298) 1.77 10*3/uL 1.88-7.09 L IMM GRAN x10^3 (test code = 5730328461) 0.05 10*3/uL 0.00-0.06 LYMPH x10^3 (test code = 731-0) 2.19 10*3/uL 1.32-3.29 MONO x10^3 (test code = 742-7) 0.61 10*3/uL 0.33-0.92 EOS x10^3 (test code = 711-2) 0.25 10*3/uL 0.03-0.39 BASO x10^3 (test code = 704-7) 0.04 10*3/uL 0.01-0.07 LG GRAN LYMPHS (test code = 7638109478) Moderate Rare A Lab Interpretation (test code = 22808-4) Abnormal [facility] with Cycb4129-45-30 10:35:02* Test Item Value Reference Range Interpretation Comme nts WBC (test code = 6690-2) 4.91 4.30-11.10 RBC (test code = 789-8) 3.30 3.93-5.25 L HGB (test code = 718-7) 9.7 g/dL 11.6-15.0 L HCT (test code = 4544-3) 29.0 % 35.7-45.2 L MCV (test code = 787-2) 87.9 fL 80.6-95.5 MCH (test code = 785-6) 29.4 pg 25.9-32.8 MCHC (test code = 786-4) 33.4 g/dL 31.6-35.1 RDW-SD (test code = 06481-2) 47.9 fL 39.0-49.9 RDW-CV (test code = 788-0) 15.5 % 12.0-15.5 PLT (test code = 777-3) 129 166-358 L MPV (test code = 67962-3) 10.1 fL 9.5-12.9 NRBC/100 WBC (test code = 8380773755) 0.0 0.0-10.0 NRBC x10^3 (test code = 1662734252) See_Comment [Automated messa ge] The system which generated this result transmitted reference range: 10*3/?L. The reference range was not used to interpret this result as normal/abnormal. GRAN MAT (NEUT) % (test code = 770-8) 36.1 % IMM GRAN % (test code = 6595832353) 1.00 % LYMPH % (test code = 736-9) 44.6 % MONO % (test code = 5905-5) 12.4 % EOS % (test code = 713-8) 5.1 % BASO % (test code = 706-2) 0.8 % GRAN MAT x10^3(ANC) (test code = 3251315873) 1.77 10*3/uL 1.88-7.09 L IMM GRAN x10^3 (test code = 8650141892) 0.05 10*3/uL 0.00-0.06 LYMPH x10^3 (test code = 731-0) 2.19 10*3/uL 1.32-3.29 MONO x10^3 (test code = 742-7) 0.61 10*3/uL 0.33-0.92 EOS x10^3 (test code = 711-2) 0.25 10*3/uL 0.03-0.39 BASO x10^3 (test code = 704-7) 0.04 10*3/uL 0.01-0.07 LG GRAN LYMPHS (test code = 4679707270) Moderate Rare A Lab Interpretation (test code = 71864-7) Abnormal [facility] with Ymuo3327-32-64 10:35:02* Test Item Value Reference Range Interpretation Comme nts WBC (test code = 6690-2) 4.91 4.30-11.10 RBC (test code = 789-8) 3.30 3.93-5.25 L HGB (test code = 718-7) 9.7 g/dL 11.6-15.0 L HCT (test code = 4544-3) 29.0 % 35.7-45.2 L MCV (test code = 787-2) 87.9 fL 80.6-95.5 MCH (test code = 785-6) 29.4 pg 25.9-32.8 MCHC (test code = 786-4) 33.4 g/dL 31.6-35.1 RDW-SD (test code = 40155-6) 47.9 fL 39.0-49.9 RDW-CV (test code = 788-0) 15.5 % 12.0-15.5 PLT (test code = 777-3) 129 166-358 L MPV (test code = 87519-0) 10.1 fL 9.5-12.9 NRBC/100 WBC (test code = 8766711754) 0.0 0.0-10.0 NRBC x10^3 (test code = 6862878738) See_Comment [Automated messa ge] The system which generated this result transmitted reference range: 10*3/?L. The reference range was not used to interpret this result as normal/abnormal. GRAN MAT (NEUT) % (test code = 770-8) 36.1 % IMM GRAN % (test code = 8353675825) 1.00 % LYMPH % (test code = 736-9) 44.6 % MONO % (test code = 5905-5) 12.4 % EOS % (test code = 713-8) 5.1 % BASO % (test code = 706-2) 0.8 % GRAN MAT x10^3(ANC) (test code = 9376879877) 1.77 10*3/uL 1.88-7.09 L IMM GRAN x10^3 (test code = 5410196994) 0.05 10*3/uL 0.00-0.06 LYMPH x10^3 (test code = 731-0) 2.19 10*3/uL 1.32-3.29 MONO x10^3 (test code = 742-7) 0.61 10*3/uL 0.33-0.92 EOS x10^3 (test code = 711-2) 0.25 10*3/uL 0.03-0.39 BASO x10^3 (test code = 704-7) 0.04 10*3/uL 0.01-0.07 LG GRAN LYMPHS (test code = 6350839304) Moderate Rare A Lab Interpretation (test code = 42491-9) Abnormal [facility] Metabolic Panel (NA, K, CL, CO2, GLUCOSE, BUN, CREATININE, CA)2024-10-16 10:33:56* Test Item Value Reference Range Interpretation Comme nts NA (test code = 5868998711) 139 mmol/L 135-145 K (test code = 4118371538) 3.9 mmol/L 3.5-5.0 CL (test code = 9785780698) 114 mmol/L 98-108 H CO2 TOTAL (test code = 7032106122) 21 mmol/L 23-31 L AGAP (test code = 1183490428) 4 2-16 BUN (test code = 2968731366) 10 mg/dL 7-23 GLUCOSE (test code = 7375518290) 93 mg/dL 70-110 CREATININE (test code = 2160-0) 0.46 mg/dL 0.50-1.04 L CALCIUM (test code = 4027982166) 8.3 mg/dL 8.6-10.6 L eGFR (test code = 56943-7) 102.5 mL/min/1.73m2 CKD-EPI eGFR (2020). Assuming creatinine has been stable day-to-day for at least three months, the eGFR indicates Category G1 (>= 90 mL/min/1.73 m2) Lab Interpretation (test code = 99427-4) [facility]normal [facility]2025-[facility]-19 10:33:56* Test Item Value Reference Range Interpretation Comme nts PHOSPHORUS (test code = 9144740635) 3.2 mg/dL 2.5-5.0 Lab Interpretation (test cod e = 62380-6) Normal [facility]2025-01-19 10:33:56* Test Item Value Reference Range Interpretation Comme nts MAGNESIUM (test code = 5462169698) 1.6 mg/dL 1.7-2.4 L Lab Interpretation (test cod e = 45556-6) Abnormal [facility] Metabolic Panel (NA, K, CL, CO2, GLUCOSE, BUN, CREATININE, CA)2024-10-16 10:33:56* Test Item Value Reference Range Interpretation Comme nts NA (test code = 0092502338) 139 mmol/L 135-145 K (test code = 4970011362) 3.9 mmol/L 3.5-5.0 CL (test code = 0319742268) 114 mmol/L 98-108 H CO2 TOTAL (test code = 4829337059) 21 mmol/L 23-31 L AGAP (test code = 7095522862) 4 2-16 BUN (test code = 6877190287) 10 mg/dL 7-23 GLUCOSE (test code = 2740741765) 93 mg/dL 70-110 CREATININE (test code = 2160-0) 0.46 mg/dL 0.50-1.04 L CALCIUM (test code = 6561755515) 8.3 mg/dL 8.6-10.6 L eGFR (test code = 53938-8) 102.5 mL/min/1.73m2 CKD-EPI eGFR (2020). Assuming creatinine has been stable day-to-day for at least three months, the eGFR indicates Category G1 (>= 90 mL/min/1.73 m2) Lab Interpretation (test code = 17109-1) Abnormal [facility]2025-01-19 10:33:56* Test Item Value Reference Range Interpretation Comme nts PHOSPHORUS (test code = 2193756838) 3.2 mg/dL 2.5-5.0 Lab Interpretation (test cod e = 39574-8) Normal [facility]2025-01-19 10:33:56* Test Item Value Reference Range Interpretation Comme nts MAGNESIUM (test code = 3496056166) 1.6 mg/dL 1.7-2.4 L Lab Interpretation (test cod e = 85223-9) [facility]normal [facility] (NA, K, CL, CO2, GLUCOSE, BUN, CREATININE, CA)2024-10-16 10:33:56* Test Item Value Reference Range Interpretation Comme nts NA (test code = 0221906162) 139 mmol/L 135-145 K (test code = 5415875163) 3.9 mmol/L 3.5-5.0 CL (test code = 0172528454) 114 mmol/L 98-108 H CO2 TOTAL (test code = 7341266588) 21 mmol/L 23-31 L AGAP (test code = 2904225875) 4 2-16 BUN (test code = 0029975056) 10 mg/dL 7-23 GLUCOSE (test code = 7461660971) 93 mg/dL 70-110 CREATININE (test code = 2160-0) 0.46 mg/dL 0.50-1.04 L CALCIUM (test code = 7507384185) 8.3 mg/dL 8.6-10.6 L eGFR (test code = 36814-2) 102.5 mL/min/1.73m2 CKD-EPI eGFR (2020). Assuming creatinine has been stable day-to-day for at least three months, the eGFR indicates Category G1 (>= 90 mL/min/1.73 m2) Lab Interpretation (test code = 80569-0) Abnormal [facility]2025-01-19 10:33:56* Test Item Value Reference Range Interpretation Comme nts PHOSPHORUS (test code = 4433521548) 3.2 mg/dL 2.5-5.0 Lab Interpretation (test cod e = 19811-9) Normal [facility]2025-01-19 10:33:56* Test Item Value Reference Range Interpretation Comme nts MAGNESIUM (test code = 2362673263) 1.6 mg/dL 1.7-2.4 L Lab Interpretation (test cod e = 94296-9) Abnormal [facility] Met[facility] (NA, K, CL, CO2, GLUCOSE, BUN, CREATININE, CA)2024-10-16 10:33:56* Test Item Value Reference Range Interpretation Comme nts NA (test code = 9649683708) 139 mmol/L 135-145 K (test code = 7288420981) 3.9 mmol/L 3.5-5.0 CL (test code = 5153415628) 114 mmol/L 98-108 H CO2 TOTAL (test code = 4303683504) 21 mmol/L 23-31 L AGAP (test code = 0220074325) 4 2-16 BUN (test code = 0642103443) 10 mg/dL 7-23 GLUCOSE (test code = 5059106086) 93 mg/dL 70-110 CREATININE (test code = 2160-0) 0.46 mg/dL 0.50-1.04 L CALCIUM (test code = 8466271685) 8.3 mg/dL 8.6-10.6 L eGFR (test code = 60410-6) 102.5 mL/min/1.73m2 CKD-EPI eGFR (2020). Assuming creatinine has been stable day-to-day for at least three months, the eGFR indicates Category G1 (>= 90 mL/min/1.73 m2) Lab Interpretation (test code = 01689-2) Abnormal [facility]2025-01-19 10:33:56* Test Item Value Reference Range Interpretation Comme nts PHOSPHORUS (test code = 0258845484) 3.2 mg/dL 2.5-5.0 Lab Interpretation (test cod e = 41948-2) Normal [facility]2025-01-19 10:33:56* Test Item Value Reference Range Interpretation Comme nts MAGNESIUM (test code = 5526246114) 1.6 mg/dL 1.7-2.4 L Lab Interpretation (test cod e = 17336-0) [facility] Gdtmxus5499-14-26 00:40:00* Test Item Value Reference Range Interpretation Comme nts ABO & RH (test code = 20) A POSITIVE IAT (test code = 1185) Negative [facility] - [facility] Hlilbgj1264-00-31 00:40:00* Test Item Value Reference Range Interpretation Comme nts ABO & RH (test code = 20) A POSITIVE IAT (test code = 1185) Negative [facility] - ONCE Jvkmizv5971-41-76 00:40:00* Test Item Value Reference Range Interpretation Comme nts ABO & RH (test code = 20) A POSITIVE IAT (test code = 1185) Negative [facility] - ONCE Lrajdqo8257-13-11 00:40:00* Test Item Value Reference Range Interpretation Comme nts ABO & RH (test code = 20) A POSITIVE IAT (test code = 1185) Negative [facility] HospitalIron Ccypj6718-25-52 22:47:39* Test Item Value Reference Range Interpretation Comme nts IRON (test code = 5955080659) 43 ug/dL 50-160 L TIBC (test code = 3268801923) 232 ug/dL 250-410 L % FE SAT (test code = 1669072957) 19 % 20-50 L Lab Interpretation (test cod e = 47362-8) Abnormal [facility] Ezpyg2096-99-67 22:47:39* Test Item Value Reference Range Interpretation Comme nts IRON (test code = 1605383129) 43 ug/dL 50-160 L TIBC (test code = 1614199054) 232 ug/dL 250-410 L % FE SAT (test code = 8825291852) 19 % 20-50 L Lab Interpretation (test cod e = 66318-3) Abnormal [facility] Sxmje5679-72-37 22:47:39* Test Item Value Reference Range Interpretation Comme nts IRON (test code = 0496113409) 43 ug/dL 50-160 L TIBC (test code = 2088996044) 232 ug/dL 250-410 L % FE SAT (test code = 3287725549) 19 % 20-50 L Lab Interpretation (test cod e = 30125-8) Abnormal [facility] Hclex8096-18-75 22:47:39* Test Item Value Reference Range Interpretation Comme nts IRON (test code = 4291786297) 43 ug/dL 50-160 L TIBC (test code = 7659069049) 232 ug/dL 250-410 L % FE SAT (test code = 3305639684) 19 % 20-50 L Lab Interpretation (test cod e = 43663-9) Abnormal [facility] GLUCOSE (AUTOMATED)2024-10-15 17:48:23* Test Item Value Reference Range Interpretation Comme nts POCT GLU (test code = 8165820225) 110 mg/dL 70-110 Lab Interpretation (test cod e = 38767-8) Normal [facility] GLUCOSE (AUTOMATED)2024-10-15 17:48:23* Test Item Value Reference Range Interpretation Comme nts POCT GLU (test code = 6579204956) 110 mg/dL 70-110 Lab Interpretation (test cod e = 48556-8) Normal [facility] GLUCOSE (AUTOMATED)2024-10-15 17:48:23* Test Item Value Reference Range Interpretation Comme nts POCT GLU (test code = 0532037117) 110 mg/dL 70-110 Lab Interpretation (test cod e = 28851-7) Normal [facility] GLUCOSE (AUTOMATED)2024-10-15 17:48:23* Test Item Value Reference Range Interpretation Comme nts POCT GLU (test code = 0032780122) 110 mg/dL 70-110 Lab Interpretation (test cod e = 50889-5) Normal [facility] GLUCOSE (AUTOMATED)2024-10-15 15:23:58* Test Item Value Reference Range Interpretation Comme nts POCT GLU (test code = 1858518884) 103 mg/dL 70-110 Lab Interpretation (test cod e = 06355-4) Normal [facility] GLUCOSE (AUTOMATED)2024-10-15 15:23:58* Test Item Value Reference Range Interpretation Comme nts POCT GLU (test code = 3107815459) 103 mg/dL 70-110 Lab Interpretation (test cod e = 06096-9) Normal [facility] GLUCOSE (AUTOMATED)2024-10-15 15:23:58* Test Item Value Reference Range Interpretation Comme nts POCT GLU (test code = 4964496404) 103 mg/dL 70-110 Lab Interpretation (test cod e = 70061-7) Normal [facility] GLUCOSE (AUTOMATED)2024-10-15 15:23:58* Test Item Value Reference Range Interpretation Comme nts POCT GLU (test code = 7863844580) 103 mg/dL 70-110 Lab Interpretation (test cod e = 54372-9) Normal [facility] Time OR(non-reportable)2024-10-14 22:20:05 These images do not require a Radiology diagnostic report.[facility] Time OR(non-reportable)2024-10-14 22:20:05These images do not require a Radiology diagnostic report.[facility] Time OR(non-reportable)2024-10-14 22:20:05These images do not require a Radiology diagnostic report.[facility] Time OR(non-reportable) 2024-10-14 22:20:05These images do not require a Radiology diagnostic report. [facility] Partial Thrmplas Rrj8909-85-19 12:40:11* Test Item Value Reference Range Interpretation Comme nts APTT Patient (test code = 3173-2) 33 26-36 WILLY (test code = WILLY) The [facility] patient population mean normal value for aPTT is 30 seconds. Lab Interpretation (test code = 26061-8) Normal [facility] Hospital[facility] Time / [id number] 12:40:11* Test Item Value Reference Range Interpretation Comme nts PROTIME PATIENT (test code = 5964-2) 13.3 10.1-12.6 H INR (test code = 6301-6) 1.1 Normal INR <1.1; Warfarin Therapeutic range 2.0 to 3.0 or 2.5 to 3.5, depending upon the indications. Lab Interpretation (test code = 88588-4) Abnormal [facility] HospitalAct[facility] Partial Thrmplas Ycg5435-70-02 12:40:11* Test Item Value Reference Range Interpretation Comme nts APTT Patient (test code = 3173-2) 33 -36 WILLY (test code = WILLY) The [facility] patient population mean normal value for aPTT is 30 seconds. Lab Interpretation (test code = 16383-4) Normal [facility] HospitalProth[facility]bin Time / [id number] 12:40:11* Test Item Value Reference Range Interpretation Comme nts PROTIME PATIENT (test code = 5964-2) 13.3 10.1-12.6 H INR (test code = 6301-6) 1.1 Normal INR <1.1; Warfarin Therapeutic range 2.0 to 3.0 or 2.5 to 3.5, depending upon the indications. Lab Interpretation (test code = 75136-2) Abnormal [facility] Thrmpl[facility] [id number] 12:40:11* Test Item Value Reference Range Interpretation Comme nts APTT Patient (test code = 3173-2) 33 26-36 WILLY (test code = WILLY) The [facility] patient population mean normal value for aPTT is 30 seconds. Lab Interpretation (test code = 43999-2) Normal [facility] / [id number] 12:40:11* Test Item Value Reference Range Interpretation Comme nts PROTIME PATIENT (test code = 5964-2) 13.3 10.1-12.6 H INR (test code = 6301-6) 1.1 Normal INR <1.1; Warfarin Therapeutic range 2.0 to 3.0 or 2.5 to 3.5, depending upon the indications. Lab Interpretation (test code = 85073-6) [facility]normal [facility] [id number] 12:40:11* Test Item Value Reference Range Interpretation Comme [facility] APTT Patient (test code = 3173-2) 33 26-36 WILLY (test code = WILLY) The [facility] patient population mean normal value for aPTT is 30 seconds. Lab Interpretation (test code = 41700-5) Normal [facility] / [id number] 12:40:11* Test Item Value Reference Range Interpretation Comme [facility] PROTIME PATIENT (test code = 5964-2) 13.3 10.1-12.6 H INR (test code = 6301-6) 1.1 Normal INR <1.1; Warfarin Therapeutic range 2.0 to 3.0 or 2.5 to 3.5, depending upon the indications. Lab Interpretation (test code = 71705-6) Abnormal [facility] [id number] 12:35:53* Test Item Value Reference Range Interpretation Comme nts CK (test code = 2251336469) 28 U/L 33-194 L Lab Interpretation (test cod e = 45003-9) [facility]normal [facility] Cenqik1813-21-43 12:35:53* Test Item Value Reference Range Interpretation Comme nts CK (test code = 3326996022) 28 U/L 33-194 L Lab Interpretation (test cod e = 53971-4) Abnormal [facility] Lmbgvx2930-37-61 12:35:53* Test Item Value Reference Range Interpretation Comme nts CK (test code = 4910138714) 28 U/L 33-194 L Lab Interpretation (test cod e = 77631-6) Abnormal [facility] Neybbk0742-34-82 12:35:53* Test Item Value Reference Range Interpretation Comme nts CK (test code = 2028161438) 28 U/L 33-194 L Lab Interpretation (test cod e = 55582-6) Abnormal [facility] HospitalGlycosylated Hemoglobin (A1C)2024-10-14 04:22:51* Test Item Value Reference Range Interpretation Comme nts HGB A1C (test code = 4548-4) 5.1 % 4.0-5.7 WILLY (test code = WILLY) Reference RangesNormal: <5.7%Prediabetes: 5.7 - 6.4%Diabetes: > 6.5% Lab Interpretation (test code = 76095-1) Normal [facility] HospitalGlycosylated Hemoglobin (A1C)2024-10-14 04:22:51* Test Item Value Reference Range Interpretation Comme nts HGB A1C (test code = 4548-4) 5.1 % 4.0-5.7 WILLY (test code = WILLY) Reference RangesNormal: <5.7%Prediabetes: 5.7 - 6.4%Diabetes: > 6.5% Lab Interpretation (test code = 44887-0) Normal [facility] HospitalGlycosylated Hemoglobin (A1C)2024-10-14 04:22:51* Test Item Value Reference Range Interpretation Comme nts HGB A1C (test code = 4548-4) 5.1 % 4.0-5.7 WILLY (test code = WILLY) Reference RangesNormal: <5.7%Prediabetes: 5.7 - 6.4%Diabetes: > 6.5% Lab Interpretation (test code = 93172-4) Normal [facility] HospitalGlycosylated Hemoglobin (A1C)2024-10-14 04:22:51* Test Item Value Reference Range Interpretation Comme nts HGB A1C (test code = 4548-4) 5.1 % 4.0-5.7 WILLY (test code = WILLY) Reference RangesNormal: <5.7%Prediabetes: 5.7 - 6.4%Diabetes: > 6.5% Lab Interpretation (test code = 52039-3) Normal [facility] Kqgl1057-27-64 20:06:38* Test Item Value Reference Range Interpretation Comme nts ESR (test code = 09202-6) 73 0-20 H Lab Interpretation (test cod e = 61127-4) Abnormal [facility] Mxpd5219-77-02 20:06:38* Test Item Value Reference Range Interpretation Comme nts ESR (test code = 46703-4) 73 0-20 H Lab Interpretation (test cod e = 55598-9) [facility]normal [facility] Llym4676-64-24 20:06:38* Test Item Value Reference Range Interpretation Comme nts ESR (test code = 00593-6) 73 0-20 H Lab Interpretation (test cod e = 44354-1) [facility] Asrh2648-49-87 20:06:38* Test Item Value Reference Range Interpretation Comme nts ESR (test code = 55804-6) 73 0-20 H Lab Interpretation (test cod e = 30129-3) Abnormal [facility] HospitalXR Foot 3+ vw [id number] 19:56:52ORDERING PHYSICIAN: MIRIAM HILL. HISTORY: right foot/toe wound TECHNIQUE: 3 views COMPARISON:09/20/2024 FINDINGS: Alignment is anatomic. Bunionectomy changes are present. Solitary partiallythreaded screws transfix old healed osteotomies of distal first and fifthmetatarsals. There is moderatetibiotalar joint space narrowing. Moderateplantar calcaneal spurring is seen. There are vascular rojelio cifications.[facility]XR [facility] 3+ vw [id number] 19:56:52ORDERING PHYSICIAN: MIRIAM HILL. HISTORY: right foot/toe wound TECHNIQUE: 3 views COMPARISON:09/20/2024 FINDINGS: Alignment is anatomic. Bunionectomy changes are present. Solitary partiallythreaded screws transfix old healed osteotomies of distal first and fifthmetatarsals. There is moderate tibiotalar joint space narrowing. Moderateplantar calcaneal spurring is seen. There are vascular calcifications.[facility] 3+ vw [id number] 19:56:52ORDERING PHYSICIAN: MIRIAM HILL. HISTORY: right foot/toe wound TECHNIQUE: 3 views COMPARISON:09/20/2024 FINDINGS: Alignment is anatomic. Bunionectomy changes are present. Solitary partiallythreaded screws transfix old healed osteotomies of distal first and fifthmetatarsals. There is moderatetibiotalar joint space narrowing. Moderateplantar calcaneal spurring is seen. There are vascular calcifications.[facility] 3+ vw [id number] 19:56:52ORDERING PHYSICIAN: MIRIAM HILL. HISTORY: right foot/toe wound TECHNIQUE: 3 views COMPARISON:09/20/2024 FINDINGS: Alignment is anatomic. Bunionectomy changes are present. Solitary partiallythre aded screws transfix old healed osteotomies of distal first and fifthmetatarsals. There is moderatetibiotalar joint space narrowing. Moderateplantar calcaneal spurring is seen. There are vascular calcifications. [facility] HospitalCOMP. METABOLIC PANEL ([id number])2024-10-13 19:43:33* Test Item Value Reference Range Interpretation Comme nts NA (test code = 8164691749) 142 mmol/L 135-145 K (test code = 1820039213) 3.7 mmol/L 3.5-5.0 CL (test code = 2383263969) 110 mmol/L 98-108 H CO2 TOTAL (test code = 5547127540) 28 mmol/L 23-31 AGAP (test code = 7658772690) 4 2-16 BUN (test code = 6067692559) 14 mg/dL 7-23 GLUCOSE (test code = 8270658305) 86 mg/dL 70-110 CREATININE (test code = 2160-0) 0.53 mg/dL 0.50-1.04 TOTAL BILI (test code = 6397973250) 0.9 mg/dL 0.1-1.1 CALCIUM (test code = 6363591439) 9.0 mg/dL 8.6-10.6 T PROTEIN (test code = 6031851493) 7.2 g/dL 6.3-8.2 ALBUMIN (test code = 3414945701) 3.3 g/dL 3.5-5.0 L ALK PHOS (test code = 8174787292) 69 U/L 34-122 ALTv (test code = 1742-6) 19 U/L 5-35 AST(SGOT) (test code = 5611760938) 37 U/L 13-40 eGFR (test code = 71918-8) 99.0 mL/min/1.73m2 CKD-EPI eGFR (2020). Assuming creatinine has been stable day-to-day for at least three months, the eGFR indicates Category G1 (>= 90 mL/min/1.73 m2) Lab Interpretation (test code = 54120-7) Abnormal [facility] METABOLIC PANEL (37692)2024-10-13 19:43:33* Test Item Value Reference Range Interpretation Comme nts NA (test code = 5520031848) 142 mmol/L 135-145 K (test code = 7381358885) 3.7 mmol/L 3.5-5.0 CL (test code = 7500440211) 110 mmol/L 98-108 H CO2 TOTAL (test code = 7589551904) 28 mmol/L 23-31 AGAP (test code = 6521186955) 4 2-16 BUN (test code = 3069778572) 14 mg/dL 7-23 GLUCOSE (test code = 8471274184) 86 mg/dL 70-110 CREATININE (test code = 2160-0) 0.53 mg/dL 0.50-1.04 TOTAL BILI (test code = 1045219372) 0.9 mg/dL 0.1-1.1 CALCIUM (test code = 9627157848) 9.0 mg/dL 8.6-10.6 T PROTEIN (test code = 9709409393) 7.2 g/dL 6.3-8.2 ALBUMIN (test code = 4936619907) 3.3 g/dL 3.5-5.0 L ALK PHOS (test code = 3582210523) 69 U/L 34-122 ALTv (test code = 1742-6) 19 U/L 5-35 AST(SGOT) (test code = 4633790804) 37 U/L 13-40 eGFR (test code = 47475-4) 99.0 mL/min/1.73m2 CKD-EPI eGFR (2020). Assuming creatinine has been stable day-to-day for at least three months, the eGFR indicates Category G1 (>= 90 mL/min/1.73 m2) Lab Interpretation (test code = 82752-5) Abnormal [facility] METABOLIC PANEL (67029)2024-10-13 19:43:33* Test Item Value Reference Range Interpretation Comme nts NA (test code = 5666751418) 142 mmol/L 135-145 K (test code = 6346338710) 3.7 mmol/L 3.5-5.0 CL (test code = 6284768689) 110 mmol/L 98-108 H CO2 TOTAL (test code = 6170348579) 28 mmol/L 23-31 AGAP (test code = 2532618755) 4 2-16 BUN (test code = 9589224134) 14 mg/dL 7-23 GLUCOSE (test code = 8698219001) 86 mg/dL 70-110 CREATININE (test code = 2160-0) 0.53 mg/dL 0.50-1.04 TOTAL BILI (test code = 1584221068) 0.9 mg/dL 0.1-1.1 CALCIUM (test code = 4742999698) 9.0 mg/dL 8.6-10.6 T PROTEIN (test code = 7428047856) 7.2 g/dL 6.3-8.2 ALBUMIN (test code = 0111504823) 3.3 g/dL 3.5-5.0 L ALK PHOS (test code = 9064755791) 69 U/L 34-122 ALTv (test code = 1742-6) 19 U/L 5-35 AST(SGOT) (test code = 6661227808) 37 U/L 13-40 eGFR (test code = 74863-4) 99.0 mL/min/1.73m2 CKD-EPI eGFR (2020). Assuming creatinine has been stable day-to-day for at least three months, the eGFR indicates Category G1 (>= 90 mL/min/1.73 m2) Lab Interpretation (test code = 19742-1) [facility]normal [facility]OLIC [facility] (08339)2024-10-13 19:43:33* Test Item Value Reference Range Interpretation Comme nts NA (test code = 3042690842) 142 mmol/L 135-145 K (test code = 0828633942) 3.7 mmol/L 3.5-5.0 CL (test code = 8459104132) 110 mmol/L 98-108 H CO2 TOTAL (test code = 6073146756) 28 mmol/L 23-31 AGAP (test code = 1623911448) 4 2-16 BUN (test code = 2564611201) 14 mg/dL 7-23 GLUCOSE (test code = 1961168877) 86 mg/dL 70-110 CREATININE (test code = 2160-0) 0.53 mg/dL 0.50-1.04 TOTAL BILI (test code = 5497260782) 0.9 mg/dL 0.1-1.1 CALCIUM (test code = 7891581063) 9.0 mg/dL 8.6-10.6 T PROTEIN (test code = 6590345143) 7.2 g/dL 6.3-8.2 ALBUMIN (test code = 2639388113) 3.3 g/dL 3.5-5.0 L ALK PHOS (test code = 7791903726) 69 U/L 34-122 ALTv (test code = 1742-6) 19 U/L 5-35 AST(SGOT) (test code = 1308631990) 37 U/L 13-40 eGFR (test code = 91058-7) 99.0 mL/min/1.73m2 CKD-EPI eGFR (2020). Assuming creatinine has been stable day-to-day for at least three months, the eGFR indicates Category G1 (>= 90 mL/min/1.73 m2) Lab Interpretation (test code = 12810-7) [facility] [id number] 19:24:32* Test Item Value Reference Range Interpretation Comme nts WBC (test code = 6690-2) 5.26 4.30-11.10 RBC (test code = 789-8) 3.64 3.93-5.25 L HGB (test code = 718-7) 10.5 g/dL 11.6-15.0 L HCT (test code = 4544-3) 33.1 % 35.7-45.2 L MCV (test code = 787-2) 90.9 fL 80.6-95.5 MCH (test code = 785-6) 28.8 pg 25.9-32.8 MCHC (test code = 786-4) 31.7 g/dL 31.6-35.1 RDW-SD (test code = 84001-0) 50.0 fL 39.0-49.9 H RDW-CV (test code = 788-0) 15.4 % 12.0-15.5 PLT (test code = 777-3) 165 166-358 L MPV (test code = 83252-4) 10.4 fL 9.5-12.9 NRBC/100 WBC (test code = 9960080353) 0.0 0.0-10.0 NRBC x10^3 (test code = 9039919064) See_Comment [Automated messa ge] The system which generated this result transmitted reference range: 10*3/?L. The reference range was not used to interpret this result as normal/abnormal. GRAN MAT (NEUT) % (test code = 770-8) 57.6 % IMM GRAN % (test code = 3557089490) 0.40 % LYMPH % (test code = 736-9) 34.0 % MONO % (test code = 5905-5) 4.2 % EOS % (test code = 713-8) 3.2 % BASO % (test code = 706-2) 0.6 % GRAN MAT x10^3(ANC) (test code = 2666512264) 3.03 10*3/uL 1.88-7.09 IMM GRAN x10^3 (test code = 7627742085) 0.00-0.06 LYMPH x10^3 (test code = 731-0) 1.79 10*3/uL 1.32-3.29 MONO x10^3 (test code = 742-7) 0.22 10*3/uL 0.33-0.92 L EOS x10^3 (test code = 711-2) 0.17 10*3/uL 0.03-0.39 BASO x10^3 (test code = 704-7) 0.03 10*3/uL 0.01-0.07 Lab Interpretation (test code = 03541-2) [facility] [id number] 19:24:32* Test Item Value Reference Range Interpretation Comme nts WBC (test code = 6690-2) 5.26 4.30-11.10 RBC (test code = 789-8) 3.64 3.93-5.25 L HGB (test code = 718-7) 10.5 g/dL 11.6-15.0 L HCT (test code = 4544-3) 33.1 % 35.7-45.2 L MCV (test code = 787-2) 90.9 fL 80.6-95.5 MCH (test code = 785-6) 28.8 pg 25.9-32.8 MCHC (test code = 786-4) 31.7 g/dL 31.6-35.1 RDW-SD (test code = 04601-9) 50.0 fL 39.0-49.9 H RDW-CV (test code = 788-0) 15.4 % 12.0-15.5 PLT (test code = 777-3) 165 166-358 L MPV (test code = 09734-8) 10.4 fL 9.5-12.9 NRBC/100 WBC (test code = 5414238436) 0.0 0.0-10.0 NRBC x10^3 (test code = 2907111224) See_Comment [Automated messa ge] The system which generated this result transmitted reference range: 10*3/?L. The reference range was not used to interpret this result as normal/abnormal. GRAN MAT (NEUT) % (test code = 770-8) 57.6 % IMM GRAN % (test code = 0294744965) 0.40 % LYMPH % (test code = 736-9) 34.0 % MONO % (test code = 5905-5) 4.2 % EOS % (test code = 713-8) 3.2 % BASO % (test code = 706-2) 0.6 % GRAN MAT x10^3(ANC) (test code = 5044650765) 3.03 10*3/uL 1.88-7.09 IMM GRAN x10^3 (test code = 2441124722) 0.00-0.06 LYMPH x10^3 (test code = 731-0) 1.79 10*3/uL 1.32-3.29 MONO x10^3 (test code = 742-7) 0.22 10*3/uL 0.33-0.92 L EOS x10^3 (test code = 711-2) 0.17 10*3/uL 0.03-0.39 BASO x10^3 (test code = 704-7) 0.03 10*3/uL 0.01-0.07 Lab Interpretation (test code = 01173-4) [facility] [id number] 19:24:32* Test Item Value Reference Range Interpretation Comme nts WBC (test code = 6690-2) 5.26 4.30-11.10 RBC (test code = 789-8) 3.64 3.93-5.25 L HGB (test code = 718-7) 10.5 g/dL 11.6-15.0 L HCT (test code = 4544-3) 33.1 % 35.7-45.2 L MCV (test code = 787-2) 90.9 fL 80.6-95.5 MCH (test code = 785-6) 28.8 pg 25.9-32.8 MCHC (test code = 786-4) 31.7 g/dL 31.6-35.1 RDW-SD (test code = 93731-3) 50.0 fL 39.0-49.9 H RDW-CV (test code = 788-0) 15.4 % 12.0-15.5 PLT (test code = 777-3) 165 166-358 L MPV (test code = 32579-6) 10.4 fL 9.5-12.9 NRBC/100 WBC (test code = 1952468804) 0.0 0.0-10.0 NRBC x10^3 (test code = 9310391291) See_Comment [Automated messa ge] The system which generated this result transmitted reference range: 10*3/?L. The reference range was not used to interpret this result as normal/abnormal. GRAN MAT (NEUT) % (test code = 770-8) 57.6 % IMM GRAN % (test code = 2082298925) 0.40 % LYMPH % (test code = 736-9) 34.0 % MONO % (test code = 5905-5) 4.2 % EOS % (test code = 713-8) 3.2 % BASO % (test code = 706-2) 0.6 % GRAN MAT x10^3(ANC) (test code = 9667778138) 3.03 10*3/uL 1.88-7.09 IMM GRAN x10^3 (test code = 3480442847) 0.00-0.06 LYMPH x10^3 (test code = 731-0) 1.79 10*3/uL 1.32-3.29 MONO x10^3 (test code = 742-7) 0.22 10*3/uL 0.33-0.92 L EOS x10^3 (test code = 711-2) 0.17 10*3/uL 0.03-0.39 BASO x10^3 (test code = 704-7) 0.03 10*3/uL 0.01-0.07 Lab Interpretation (test code = 44638-9) [facility] [id number] 19:24:32* Test Item Value Reference Range Interpretation Comme nts WBC (test code = 6690-2) 5.26 4.30-11.10 RBC (test code = 789-8) 3.64 3.93-5.25 L HGB (test code = 718-7) 10.5 g/dL 11.6-15.0 L HCT (test code = 4544-3) 33.1 % 35.7-45.2 L MCV (test code = 787-2) 90.9 fL 80.6-95.5 MCH (test code = 785-6) 28.8 pg 25.9-32.8 MCHC (test code = 786-4) 31.7 g/dL 31.6-35.1 RDW-SD (test code = 14247-6) 50.0 fL 39.0-49.9 H RDW-CV (test code = 788-0) 15.4 % 12.0-15.5 PLT (test code = 777-3) 165 166-358 L MPV (test code = 25797-5) 10.4 fL 9.5-12.9 NRBC/100 WBC (test code = 5050987417) 0.0 0.0-10.0 NRBC x10^3 (test code = 0210896413) See_Comment [Automated messa ge] The system which generated this result transmitted reference range: 10*3/?L. The reference range was not used to interpret this result as normal/abnormal. GRAN MAT (NEUT) % (test code = 770-8) 57.6 % IMM GRAN % (test code = 8550555298) 0.40 % LYMPH % (test code = 736-9) 34.0 % MONO % (test code = 5905-5) 4.2 % EOS % (test code = 713-8) 3.2 % BASO % (test code = 706-2) 0.6 % GRAN MAT x10^3(ANC) (test code = 5715369751) 3.03 10*3/uL 1.88-7.09 IMM GRAN x10^3 (test code = 7935486621) 0.00-0.06 LYMPH x10^3 (test code = 731-0) 1.79 10*3/uL 1.32-3.29 MONO x10^3 (test code = 742-7) 0.22 10*3/uL 0.33-0.92 L EOS x10^3 (test code = 711-2) 0.17 10*3/uL 0.03-0.39 BASO x10^3 (test code = 704-7) 0.03 10*3/uL 0.01-0.07 Lab Interpretation (test code = 42190-6) Abnormal [facility] GLUCOSE (AUTOMATED)2024-10-13 18:52:49* Test Item Value Reference Range Interpretation Comme nts POCT GLU (test code = 0496974175) 75 mg/dL 70-110 Lab Interpretation (test cod e = 15879-7) Normal [facility] GLUCOSE (AUTOMATED)2024-10-13 18:52:49* Test Item Value Reference Range Interpretation Comme nts POCT GLU (test code = 0614844088) 75 mg/dL 70-110 Lab Interpretation (test cod e = 83875-0) Normal [facility] GLUCOSE (AUTOMATED)2024-10-13 18:52:49* Test Item Value Reference Range Interpretation Comme nts POCT GLU (test code = 4687678254) 75 mg/dL 70-110 Lab Interpretation (test cod e = 10014-2) Normal [facility] GLUCOSE (AUTOMATED)2024-10-13 18:52:49* Test Item Value Reference Range Interpretation Comme nts POCT GLU (test code = 0267253049) 75 mg/dL 70-110 Lab Interpretation (test cod e = 78600-8) Normal [facility] METABOLIC PANEL (NA, K, CL, CO2, GLUCOSE, BUN, CREATININE, CA)2024-09-20 08:19:33* Test Item Value Reference Range Interpretation Comme nts NA (test code = 6487492396) 140 mmol/L 135-145 K (test code = 0643181325) 3.9 mmol/L 3.5-5.0 CL (test code = 0311181925) 106 mmol/L 98-108 CO2 TOTAL (test code = 2895099735) 30 mmol/L 23-31 AGAP (test code = 3676174983) 4 2-16 BUN (test code = 7907299505) 12 mg/dL 7-23 GLUCOSE (test code = 5582731982) 100 mg/dL 70-110 CREATININE (test code = 2160-0) 0.51 mg/dL 0.50-1.04 CALCIUM (test code = 7308497318) 8.8 mg/dL 8.6-10.6 eGFR (test code = 18740-4) 99.9 mL/min/1.73m2 CKD-EPI eGFR (20 21). Assuming creatinine has been stable day-to-day for at least three months, the eGFR indicates Category G1 (>= 90 mL/min/1.73 m2) [facility] [id number] 08:19:13* Test Item Value Reference Range Interpretation Comme nts URIC ACID (test code = 9598921906) 5.2 mg/dL 2.9-6.0 Lab Interpretation (test cod e = 29388-0) [facility] WITH [id number] 08:06:29* Test Item Value Reference Range Interpretation Comme nts WBC (test code = 6690-2) 8.91 4.30-11.10 RBC (test code = 789-8) 4.34 3.93-5.25 HGB (test code = 718-7) 12.6 g/dL 11.6-15.0 HCT (test code = 4544-3) 39.4 % 35.7-45.2 MCV (test code = 787-2) 90.8 fL 80.6-95.5 MCH (test code = 785-6) 29.0 pg 25.9-32.8 MCHC (test code = 786-4) 32.0 g/dL 31.6-35.1 RDW-SD (test code = 28358-2) 48.9 fL 39.0-49.9 RDW-CV (test code = 788-0) 14.7 % 12.0-15.5 PLT (test code = 777-3) 198 166-358 MPV (test code = 40262-0) 9.8 fL 9.5-12.9 NRBC/100 WBC (test code = 5328311964) 0.0 0.0-10.0 NRBC x10^3 (test code = 0963890120) See_Comment [Automated me ssage] The system which generated this result transmitted reference range: 10*3/?L. The reference range was not used to interpret this result as normal/abnormal. GRAN MAT (NEUT) % (test code = 770-8) 66.2 % IMM GRAN % (test code = 5783112670) 0.30 % LYMPH % (test code = 736-9) 20.8 % MONO % (test code = 5905-5) 7.6 % EOS % (test code = 713-8) 4.3 % BASO % (test code = 706-2) 0.8 % GRAN MAT x10^3(ANC) (test code = 3572385229) 5.90 10*3/uL 1.88-7.09 IMM GRAN x10^3 (test code = 7366607755) 0.03 10*3/uL 0.00-0.06 LYMPH x10^3 (test code = 731-0) 1.85 10*3/uL 1.32-3.29 MONO x10^3 (test code = 742-7) 0.68 10*3/uL 0.33-0.92 EOS x10^3 (test code = 711-2) 0.38 10*3/uL 0.03-0.39 BASO x10^3 (test code = 704-7) 0.07 10*3/uL 0.01-0.07 [facility]w [id number] 07:45:47Ordering physician: DILIP WHITT INDICATION: Pain in the right second and fourth toes COMPARISON: None FINDINGS: 3 views of the right foot. No acute fracture or dislocation isappreciated. The patient is status post prior internal fixation of thefirst and fifth metatarsals. There are prominent degenerative changes ofthe ankle joint. There are prominent arterial calcifications.[facility] 3 vw [id number] 17:51:20History: left anterior rib pain with cough, eval for fracture . Exam: XR RIBS 3 VW LEFT Date: 09/06/2024 9:45 AM Ordering provider: MARS LAGUNA Comparison: None available. Findings: AP view of the chest and 6 additional views of the left ribs areobtained in the AP and various oblique projections.The cardiac silhouetteis mildly enlarged. There are atherosclerotic changes of the aorta. Thereis asmall right lung calcified granuloma. No evidence of infiltrate,pleural effusion, CHF, or pneumothorax. There is moderate dextroscoliosiscentered in the midthoracic spine. No evidence of a displaced left ribfracture.[facility] HospitalTroponin [id number] 17:51:17* Test Item Value Reference Range Interpretation Comme nts TROPONIN I (test code = 6441234760) 0.002 ng/mL <=0.034 WILLY (test code = WILLY) Reference (Normal) Range (defined by the 99th percentile reference limit): <= 0.034 ng/mL Note: Cardiac troponin begins to rise 3-4 hours after the onset of ischemia. Repeat in 4-6 hours if the sample was drawn within 3-4 hours of the onset of the symptom and found normal. Diagnosis of myocardial injury is made with acute changes in cTn concentrations with at least one serial sample above the 99th percentile upper reference limit (URL), taken together with the patient's clinical presentation. Biotin has been reported to cause a negative bias, interpret results relative to patient's use of biotin. Lab Interpretation (test code = 67888-4) Normal [facility] 2 [id number] 16:55:45EXAM: XR CHEST 2 09/06/2024 10:05 AM HISTORY: 69 years-old Female with cough x 5 weeks . TECHNIQUE: PA and lateral chest radiographs. COMPARISON: 04/04/2019. FINDINGS: Lines and tubes: None. Cardiomediastinal: The cardiac silhouette is normal in size. The pulmonaryvasculature is normal. Atherosclerotic change is present within the aorta. Lungs and pleura: Right upper lobe calcified granuloma again dated. Noacute infiltrate or effusion. Degenerative change involving the spine and AC joints is present.[facility] METABOLIC PANEL (NA, K, CL, CO2, GLUCOSE, BUN, CREATININE, CA)2024-09-06 16:20:46* Test Item Value Reference Range Interpretation Comme nts NA (test code = 8981286492) 141 mmol/L 135-145 K (test code = 8519965179) 3.6 mmol/L 3.5-5.0 CL (test code = 3478626439) 108 mmol/L 98-108 CO2 TOTAL (test code = 7257293238) 27 mmol/L 23-31 AGAP (test code = 3492107623) 6 2-16 BUN (test code = 8599703355) 9 mg/dL 7-23 GLUCOSE (test code = 3021937972) 112 mg/dL 70-110 H CREATININE (test code = 2160-0) 0.52 mg/dL 0.50-1.04 CALCIUM (test code = 4169314089) 8.9 mg/dL 8.6-10.6 eGFR (test code = 83318-1) 99.5 mL/min/1.73m2 CKD-EPI eGFR (2020). Assuming creatinine has been stable day-to-day for at least three months, the eGFR indicates Category G1 (>= 90 mL/min/1.73 m2) Lab Interpretation (test code = 32391-4) [facility] WITH [id number] 16:07:01* Test Item Value Reference Range Interpretation Comme nts WBC (test code = 6690-2) 8.71 4.30-11.10 RBC (test code = 789-8) 4.45 3.93-5.25 HGB (test code = 718-7) 12.9 g/dL 11.6-15.0 HCT (test code = 4544-3) 40.5 % 35.7-45.2 MCV (test code = 787-2) 91.0 fL 80.6-95.5 MCH (test code = 785-6) 29.0 pg 25.9-32.8 MCHC (test code = 786-4) 31.9 g/dL 31.6-35.1 RDW-SD (test code = 08513-0) 49.2 fL 39.0-49.9 RDW-CV (test code = 788-0) 14.8 % 12.0-15.5 PLT (test code = 777-3) 182 166-358 MPV (test code = 51487-6) 9.4 fL 9.5-12.9 L NRBC/100 WBC (test code = 4693752376) 0.0 0.0-10.0 NRBC x10^3 (test code = 5111817398) See_Comment [Automated messa ge] The system which generated this result transmitted reference range: 10*3/?L. The reference range was not used to interpret this result as normal/abnormal. GRAN MAT (NEUT) % (test code = 770-8) 55.8 % IMM GRAN % (test code = 2493096041) 0.50 % LYMPH % (test code = 736-9) 28.8 % MONO % (test code = 5905-5) 11.5 % EOS % (test code = 713-8) 2.5 % BASO % (test code = 706-2) 0.9 % GRAN MAT x10^3(ANC) (test code = 9005065575) 4.86 10*3/uL 1.88-7.09 IMM GRAN x10^3 (test code = 6781988756) 0.04 10*3/uL 0.00-0.06 LYMPH x10^3 (test code = 731-0) 2.51 10*3/uL 1.32-3.29 MONO x10^3 (test code = 742-7) 1.00 10*3/uL 0.33-0.92 H EOS x10^3 (test code = 711-2) 0.22 10*3/uL 0.03-0.39 BASO x10^3 (test code = 704-7) 0.08 10*3/uL 0.01-0.07 H Lab Interpretation (test code = 67387-8) [facility]normal [facility] [id number] 11:09:28* Test Item Value Reference Range Interpretation Comme nts CHOLESTEROL (test code = 2210) 239 MG/DL <200 H TRIGLYCERIDES (test code = 2232) 95 MG/DL <150 HDL CHOLESTEROL (test code = 2220) 72 MG/DL >39 CALC LDL CHOL (test code = 2237) 147 MG/DL <100 H NOTE: CALCULATED LDL IS BASED ON SFOIA-VALLECILLO METHOD WHICHINCLUDES ADJUSTABLE TRIGLYCERIDE:VLDL CHOLESTEROL RATIO.THIS FACTOR VARIES BY MEASURED TRIGLYCERIDE AND NON-HDLCHOLESTEROL CONCENTRATIONS WITH INCREASED CALCULATED LDL SEENIN HIGHER TRIGLYCERIDE OR LOWER NON-HDL SPECIMENS. FOR MOREINFORMATION, SEE CLIENT ANNOUNCEMENT AT [email or web address] RISK RATIO LDL/HDL (test code = 2238) 2.04 RATIO <3.22 COMPREHENSIVE METABOLIC [id number] 11:09:28* Test Item Value Reference Range Interpretation Comme nts GLUCOSE (test code = 2217) 93 MG/DL 70-99 BUN (test code = 2208) 12 MG/DL 8-23 CREATININE (test code = 2214) 0.71 MG/DL 0.60-1.30 eGFR (2020 CKD-EPI) (test co de = 61521) 91 ML/MIN/1.73 >60 CALC BUN/CREAT (test code = 2235) 17 RATIO 6-28 SODIUM (test code = 2231) 146 MEQ/L 133-146 POTASSIUM (test code = 2228) 4.3 MEQ/L 3.5-5.4 CHLORIDE (test code = 2215) 108 MEQ/L 95-107 H CARBON DIOXIDE (test code = 2206) 26 MEQ/L 19-31 CALCIUM (test code = 2209) 8.8 MG/DL 8.5-10.5 PROTEIN, TOTAL (test code = 2229) 6.8 G/DL 6.1-8.3 ALBUMIN (test code = 2201) 3.7 G/DL 3.5-5.2 CALC GLOBULIN (test code = 2240) 3.1 G/DL 1.9-3.7 CALC A/G RATIO (test code = 2234) 1.2 RATIO 1.0-2.6 BILIRUBIN, TOTAL (test code = 2207) 0.3 MG/DL <=1.2 ALKALINE PHOSPHATASE (test code = 2204) 58 U/L 40-142 AST (test code = 2218) 23 U/L 9-40 ALT (test code = 2219) 21 U/L 5-40 VITAMIN D, 25 [id number] 10:27:05* Test Item Value Reference Range Interpretation Comme [facility] VITAMIN D, 25 OH (test code = 4958) 16 NG/ML SEE BELOW L NOTE: 25-HYDR OXYVITAMIN D ASSAY INCLUDES 25-HYDROXYVITAMIN D2 AND D3. INTERPRETIVE RANGES PEDIATRIC (<17 YEARS) . . . . . . . . . . . NG/ML 20-100ADULT: INSUFFICIENT . . . . . . . . . . . . . . NG/ML <20 SUBOPTIMAL . . . . . . . . . . . . . . . NG/ML 20-29 OPTIMAL . . . . . . . . . . . . . . . . . NG/ML 30-100 UNLESS OTHERWISE INDICATED, ALL TESTING PERFORMED AT [facility] [address] [place] [address] PRISM INSPECTOR: SHARDA VIZCAINO M.D. CLIA NUMBER [id number] [facility]. [id number] TSH + FREE T4 [id number] 10:26:52* Test Item Value Reference Range Interpretation Comme [facility] TSH, THIRD GENERATION (test code = 2821) 3.520 UIU/ML 0.400-4.100 FREE T4 (THYROXINE) (test co de = 2823) 1.07 NG/DL 0.80-1.90 HEMOGLOBIN [id number] 04:59:05* Test Item Value Reference Range Interpretation Comme [facility] HEMOGLOBIN A1c (test code = 36433) 5.7 % 4.2-5.6 H [employer] GUIDELINES FOR HGB A1C: PREDIABETES/INCREASED RISK . . . . . . . 5.7-6.4% DIAGNOSIS OF DIABETES . . . . . . . . . >=6.5% WITH CONFIRMATION OR APPROPRIATE SYMPTOMS NOTE: ASSAY MAY BE AFFECTED BY HEMOGLOBINOPATHIES (SICKLE CELL ANEMIA, S-C DISEASE, OTHERS) OR ARTIFICIALLY LOWERED BY DECREASED RED CELL SURVIVAL (HEMOLYTIC ANEMIAS, BLOOD LOSS, ETC.). CONSIDER ALTERNATE TESTING OR LABORATORY CONSULTATION. LIPID [id number] 00:00:00* Test Item Value Reference Range Interpretation Comme nts CHOLESTEROL (test code = 2210) 239 MG/DL TRIGLYCERIDES (test code = 2232) 95 MG/DL HDL CHOLESTEROL (test code = 2220) 72 MG/DL CALC LDL CHOL (test code = 2237) 147 MG/DL RISK RATIO LDL/HDL (test cod e = 2238) 2.04 RATIO William QuinonesHEMOGLOBIN [id number] 00:00:00* Test Item Value Reference Range Interpretation Comme nts HEMOGLOBIN A1c (test code = 91932) 5.7 % William QuinonesCOMPREHENSIVE METABOLIC [id number] 00:00:00* Test Item Value Reference Range Interpretation Comme nts GLUCOSE (test code = 2217) 93 MG/DL BUN (test code = 2208) 12 MG/DL CREATININE (test code = 2214) 0.71 MG/DL eGFR (2020 CKD-EPI) (test co de = 38497) 91 ML/MIN/1.73 CALC BUN/CREAT (test code = 2235) 17 RATIO SODIUM (test code = 2231) 146 MEQ/L POTASSIUM (test code = 2228) 4.3 MEQ/L CHLORIDE (test code = 2215) 108 MEQ/L CARBON DIOXIDE (test code = 2206) 26 MEQ/L CALCIUM (test code = 2209) 8.8 MG/DL PROTEIN, TOTAL (test code = 2229) 6.8 G/DL ALBUMIN (test code = 2201) 3.7 G/DL CALC GLOBULIN (test code = 2240) 3.1 G/DL CALC A/G RATIO (test code = 2234) 1.2 RATIO BILIRUBIN, TOTAL (test code = 2207) 0.3 MG/DL ALKALINE PHOSPHATASE (test code = 2204) 58 U/L AST (test code = 2218) 23 U/L ALT (test code = 2219) 21 U/L William QuinonesTSH + FREE T4 [id number] 00:00:00* Test Item Value Reference Range Interpretation Comme nts TSH, THIRD GENERATION (test code = 2821) 3.520 UIU/ML FREE T4 (THYROXINE) (test co de = 2823) 1.07 NG/DL William QuinonesVITAMIN D, 25 [id number] 00:00:00* Test Item Value Reference Range Interpretation Comme nts VITAMIN D, 25 OH (test code = 4958) 16 NG/ML William QuinonesLIPID [id number] 00:00:00* Test Item Value Reference Range Interpretation Comme nts CHOLESTEROL (test code = 2210) 239 MG/DL TRIGLYCERIDES (test code = 2232) 95 MG/DL HDL CHOLESTEROL (test code = 2220) 72 MG/DL CALC LDL CHOL (test code = 2237) 147 MG/DL RISK RATIO LDL/HDL (test cod e = 2238) 2.04 RATIO William QuinonesHEMOGLOBIN [id number] 00:00:00* Test Item Value Reference Range Interpretation Comme nts HEMOGLOBIN A1c (test code = 60741) 5.7 % William QuinonesCOMPREHENSIVE METABOLIC [id number] 00:00:00* Test Item Value Reference Range Interpretation Comme nts GLUCOSE (test code = 2217) 93 MG/DL BUN (test code = 2208) 12 MG/DL CREATININE (test code = 2214) 0.71 MG/DL eGFR (2020 CKD-EPI) (test co de = 39787) 91 ML/MIN/1.73 CALC BUN/CREAT (test code = 2235) 17 RATIO SODIUM (test code = 2231) 146 MEQ/L POTASSIUM (test code = 2228) 4.3 MEQ/L CHLORIDE (test code = 2215) 108 MEQ/L CARBON DIOXIDE (test code = 2206) 26 MEQ/L CALCIUM (test code = 2209) 8.8 MG/DL PROTEIN, TOTAL (test code = 2229) 6.8 G/DL ALBUMIN (test code = 2201) 3.7 G/DL CALC GLOBULIN (test code = 2240) 3.1 G/DL CALC A/G RATIO (test code = 2234) 1.2 RATIO BILIRUBIN, TOTAL (test code = 2207) 0.3 MG/DL ALKALINE PHOSPHATASE (test code = 2204) 58 U/L AST (test code = 2218) 23 U/L ALT (test code = 2219) 21 U/L William QuinonesTSH + FREE T4 [id number] 00:00:00* Test Item Value Reference Range Interpretation Comme nts TSH, THIRD GENERATION (test code = 2821) 3.520 UIU/ML FREE T4 (THYROXINE) (test co de = 2823) 1.07 NG/DL William QuinonesVITAMIN D, 25 [id number] 00:00:00* Test Item Value Reference Range Interpretation Comme nts VITAMIN D, 25 OH (test code = 4958) 16 NG/ML William QuinonesLIPID [id number] 00:00:00* Test Item Value Reference Range Interpretation Comme nts CHOLESTEROL (test code = 2210) 239 MG/DL TRIGLYCERIDES (test code = 2232) 95 MG/DL HDL CHOLESTEROL (test code = 2220) 72 MG/DL CALC LDL CHOL (test code = 2237) 147 MG/DL RISK RATIO LDL/HDL (test cod e = 2238) 2.04 RATIO William QuinonesHEMOGLOBIN [id number] 00:00:00* Test Item Value Reference Range Interpretation Comme nts HEMOGLOBIN A1c (test code = 79513) 5.7 % William QuinonesCOMPREHENSIVE METABOLIC [id number] 00:00:00* Test Item Value Reference Range Interpretation Comme nts GLUCOSE (test code = 2217) 93 MG/DL BUN (test code = 2208) 12 MG/DL CREATININE (test code = 2214) 0.71 MG/DL eGFR (2020 CKD-EPI) (test co de = 80795) 91 ML/MIN/1.73 CALC BUN/CREAT (test code = 2235) 17 RATIO SODIUM (test code = 2231) 146 MEQ/L POTASSIUM (test code = 2228) 4.3 MEQ/L CHLORIDE (test code = 2215) 108 MEQ/L CARBON DIOXIDE (test code = 2206) 26 MEQ/L CALCIUM (test code = 2209) 8.8 MG/DL PROTEIN, TOTAL (test code = 2229) 6.8 G/DL ALBUMIN (test code = 2201) 3.7 G/DL CALC GLOBULIN (test code = 2240) 3.1 G/DL CALC A/G RATIO (test code = 2234) 1.2 RATIO BILIRUBIN, TOTAL (test code = 2207) 0.3 MG/DL ALKALINE PHOSPHATASE (test code = 2204) 58 U/L AST (test code = 2218) 23 U/L ALT (test code = 2219) 21 U/L William QuinonesTSH + FREE T4 [id number] 00:00:00* Test Item Value Reference Range Interpretation Comme [facility] TSH, THIRD GENERATION (test code = 2821) 3.520 UIU/ML FREE T4 (THYROXINE) (test co de = 2823) 1.07 NG/DL William QuinonesVITAMIN D, 25 [id number] 00:00:00* Test Item Value Reference Range Interpretation Comme [facility] VITAMIN D, 25 OH (test code = 4958) 16 NG/ML William QuinonesLIPID [id number] 00:00:00* Test Item Value Reference Range Interpretation Comme nts CHOLESTEROL (test code = 2210) 239 MG/DL TRIGLYCERIDES (test code = 2232) 95 MG/DL HDL CHOLESTEROL (test code = 2220) 72 MG/DL CALC LDL CHOL (test code = 2237) 147 MG/DL RISK RATIO LDL/HDL (test cod e = 2238) 2.04 RATIO William QuinonesHEMOGLOBIN [id number] 00:00:00* Test Item Value Reference Range Interpretation Comme [facility] HEMOGLOBIN A1c (test code = 59128) 5.7 % William QuinonesCOMPREHENSIVE METABOLIC [id number] 00:00:00* Test Item Value Reference Range Interpretation Comme nts GLUCOSE (test code = 2217) 93 MG/DL BUN (test code = 2208) 12 MG/DL CREATININE (test code = 2214) 0.71 MG/DL eGFR (2020 CKD-EPI) (test co de = 99517) 91 ML/MIN/1.73 CALC BUN/CREAT (test code = 2235) 17 RATIO SODIUM (test code = 2231) 146 MEQ/L POTASSIUM (test code = 2228) 4.3 MEQ/L CHLORIDE (test code = 2215) 108 MEQ/L CARBON DIOXIDE (test code = 2206) 26 MEQ/L CALCIUM (test code = 2209) 8.8 MG/DL PROTEIN, TOTAL (test code = 2229) 6.8 G/DL ALBUMIN (test code = 2201) 3.7 G/DL CALC GLOBULIN (test code = 2240) 3.1 G/DL CALC A/G RATIO (test code = 2234) 1.2 RATIO BILIRUBIN, TOTAL (test code = 2207) 0.3 MG/DL ALKALINE PHOSPHATASE (test code = 2204) 58 U/L AST (test code = 2218) 23 U/L ALT (test code = 2219) 21 U/L William QuinonesTSH + FREE T4 [id number] 00:00:00* Test Item Value Reference Range Interpretation Comme [facility] TSH, THIRD GENERATION (test code = 2821) 3.520 UIU/ML FREE T4 (THYROXINE) (test co de = 2823) 1.07 NG/DL William QuinonesVITAMIN D, 25 [id number] 00:00:00* Test Item Value Reference Range Interpretation Comme nts VITAMIN D, 25 OH (test code = 4958) 16 NG/ML William QuinonesLIPID [id number] 00:00:00* Test Item Value Reference Range Interpretation Comme nts CHOLESTEROL (test code = 2210) 239 MG/DL TRIGLYCERIDES (test code = 2232) 95 MG/DL HDL CHOLESTEROL (test code = 2220) 72 MG/DL CALC LDL CHOL (test code = 2237) 147 MG/DL RISK RATIO LDL/HDL (test cod e = 2238) 2.04 RATIO William QuinonesHEMOGLOBIN [id number] 00:00:00* Test Item Value Reference Range Interpretation Comme [facility] HEMOGLOBIN A1c (test code = 40240) 5.7 % William QunionesCOMPREHENSIVE METABOLIC [id number] 00:00:00* Test Item Value Reference Range Interpretation Comme nts GLUCOSE (test code = 2217) 93 MG/DL BUN (test code = 2208) 12 MG/DL CREATININE (test code = 2214) 0.71 MG/DL eGFR (2020 CKD-EPI) (test co de = 86181) 91 ML/MIN/1.73 CALC BUN/CREAT (test code = 2235) 17 RATIO SODIUM (test code = 2231) 146 MEQ/L POTASSIUM (test code = 2228) 4.3 MEQ/L CHLORIDE (test code = 2215) 108 MEQ/L CARBON DIOXIDE (test code = 2206) 26 MEQ/L CALCIUM (test code = 2209) 8.8 MG/DL PROTEIN, TOTAL (test code = 2229) 6.8 G/DL ALBUMIN (test code = 2201) 3.7 G/DL CALC GLOBULIN (test code = 2240) 3.1 G/DL CALC A/G RATIO (test code = 2234) 1.2 RATIO BILIRUBIN, TOTAL (test code = 2207) 0.3 MG/DL ALKALINE PHOSPHATASE (test code = 2204) 58 U/L AST (test code = 2218) 23 U/L ALT (test code = 2219) 21 U/L William QuinonesTSH + FREE T4 [id number] 00:00:00* Test Item Value Reference Range Interpretation Comme nts TSH, THIRD GENERATION (test code = 2821) 3.520 UIU/ML FREE T4 (THYROXINE) (test co de = 2823) 1.07 NG/DL William QuinonesVITAMIN D, 25 [id number] 00:00:00* Test Item Value Reference Range Interpretation Comme nts VITAMIN D, 25 OH (test code = 4958) 16 NG/ML William QuinonesMEAS,POST-VOID RES,US,[id number] 21:40:00* Test Item Value Reference Range Interpretation Comme nts PVR (URINE VOLUME) (test code = 5193) 9 ml 0-100 [facility] Ur[facility], [id number] 21:39:00 * Test Item Value Reference Range Interpretation Comme nts POCT U SP GRAV (test code = 3255) 1.025 mg/dl 1.005-1.025 POCT PH U (test code = 3254) 5.0 mg/dl 5-8 POCT U LEUK EST (test code = 3263) negative Negative - Negative POCT U NIT (test code = 3262) negative Negative - Negati ve POCT U PROT (test code = 3259) 30 Negative - Negative A POCT U GLU (test code = 3256) negative Negative - Negati ve POCT U KETONE (test code = 3258) negative Negative - Negative POCT U UROBILI (test code = 3260) 0.2 mg/dl 0.2-1 POCT U BILI (test code = 3261) negative Negative - Negative POCT U BLD (test code = 3257) negative Negative - Negati ve POCT U COLOR (test code = 3266) yellow POCT U APPEAR (test code = 3267) clear Lab Interpretation (test cod e = 39825-0) [facility]normal [facility]ME[facility],POST-VOID RES,US,[id number] 19:50:00* Test Item Value Reference Range Interpretation Comme nts PVR (URINE VOLUME) (test code = 5193) 1 ml 0-100 [facility] [id number] 19:27:00 * Test Item Value Reference Range Interpretation Comme nts POCT U SP GRAV (test code = 3255) 1.025 mg/dl 1.005-1.025 POCT PH U (test code = 3254) 5.5 mg/dl 5-8 POCT U LEUK EST (test code = 3263) large Negative - Negative POCT U NIT (test code = 3262) positive Negative - Negati ve POCT U PROT (test code = 3259) 100mg Negative - Negative POCT U GLU (test code = 3256) negative Negative - Negati ve POCT U KETONE (test code = 3258) trace Negative - Negative POCT U UROBILI (test code = 3260) 0.2 mg/dl 0.2-1 POCT U BILI (test code = 3261) small Negative - Negative POCT U BLD (test code = 3257) trace Negative - Negati ve POCT U COLOR (test code = 3266) dark yellow POCT U APPEAR (test code = 3267) clear [facility]/SUPPLY [id number] 18:42:41 Ordered by an unspecified provider.[facility]/SUPPLY [id number] 15:27:14Ordered by an unspecified provider.[facility] HospitalME[facility],POST-VOID RES,US,[id number] 22:17:00* Test Item Value Reference Range Interpretation Comme nts PVR (URINE VOLUME) (test cod e = 5193) 170 ml 0-100 A Lab Interpretation (test cod e = 61167-2) [facility], [id number] 21:00:00 * Test Item Value Reference Range Interpretation Comme nts POCT U SP GRAV (test code = 3255) 1.005 mg/dl 1.005-1.025 POCT PH U (test code = 3254) 5.5 mg/dl 5-8 POCT U LEUK EST (test code = 3263) Large Negative - Negative A POCT U NIT (test code = 3262) Positive Negative - Negati ve A POCT U PROT (test code = 3259) Trace Negative - Negative A POCT U GLU (test code = 3256) Negative Negative - Negati ve POCT U KETONE (test code = 3258) Negative Negative - Negative POCT U UROBILI (test code = 3260) 0.2 mg/dl 0.2-1 POCT U BILI (test code = 3261) Negative Negative - Negative POCT U BLD (test code = 3257) Small Negative - Negati ve A POCT U COLOR (test code = 3266) Yellow POCT U APPEAR (test code = 3267) Cloudy Lab Interpretation (test cod e = 30104-9) [facility]normal [facility] w/o Specific [id number] 16:21:00* Test Item Value Reference Range Interpretation Comme nts POCT PH U (test code = 3254) 7 mg/dl 5-8 POCT U LEUK EST (test code = 3263) 2+ Negative - Negative POCT U NIT (test code = 3262) negative Negative - Negati ve POCT U PROT (test code = 3259) 100 Negative - Negat chetan POCT U GLU (test code = 3256) negative Negative - Negati ve POCT U KETONE (test code = 3258) negative Negative - Neg ative POCT U BLD (test code = 3257) trace Negative - Negati ve [facility] HospitalL[facility] [id number] 06:46:39* Test Item Value Reference Range Interpretation Comme nts CHOLESTEROL (test code = 2210) 226 MG/DL <200 H TRIGLYCERIDES (test code = 2232) 104 MG/DL <150 HDL CHOLESTEROL (test code = 2220) 55 MG/DL >39 CALC LDL CHOL (test code = 2237) 149 MG/DL <100 H NOTE: CALCULATED LDL IS BASED ON [employer]-VALLECILLO METHOD WHICHINCLUDES ADJUSTABLE TRIGLYCERIDE:VLDL CHOLESTEROL RATIO.THIS FACTOR VARIES BY MEASURED TRIGLYCERIDE AND NON-HDLCHOLESTEROL CONCENTRATIONS WITH INCREASED CALCULATED LDL SEENIN HIGHER TRIGLYCERIDE OR LOWER NON-HDL SPECIMENS. FOR MOREINFORMATION, SEE CLIENT ANNOUNCEMENT AT [email or web address] RISK RATIO LDL/HDL (test code = 2237) 2.71 RATIO <3.22 UNLESS OTHERW ISE INDICATED, ALL TESTING PERFORMED AT [facility] [address] [place] [address] PRISM INSPECTOR: SHARDA VIZCAINO M.D. CLIA NUMBER [id number] [place]. [id number] COMPREHENSIVE METABOLIC [id number] 06:46:39* Test Item Value Reference Range Interpretation Comme nts GLUCOSE (test code = 2216) 77 MG/DL 70-99 BUN (test code = 2207) 10 MG/DL 8-23 CREATININE (test code = 2213) 0.60 MG/DL 0.60-1.30 eGFR (2020 CKD-EPI) (test co de = ) 97 ML/MIN/1.73 >60 CALC BUN/CREAT (test code = 2234) 17 RATIO 6-28 SODIUM (test code = 2230) 145 MEQ/L 133-146 POTASSIUM (test code = 2227) 4.2 MEQ/L 3.5-5.4 CHLORIDE (test code = 2214) 109 MEQ/L 95-107 H CARBON DIOXIDE (test code = 6) 26 MEQ/L 19-31 CALCIUM (test code = 2209) 9.3 MG/DL 8.5-10.5 PROTEIN, TOTAL (test code = 2228) 6.7 G/DL 6.1-8.3 ALBUMIN (test code = 2200) 3.4 G/DL 3.5-5.2 L CALC GLOBULIN (test code = 2240) 3.3 G/DL 1.9-3.7 CALC A/G RATIO (test code = 2233) 1.0 RATIO 1.0-2.6 BILIRUBIN, TOTAL (test code = 2206) 0.4 MG/DL <=1.2 ALKALINE PHOSPHATASE (test code = 2203) 48 U/L 40-142 AST (test code = 2218) 24 U/L 9-40 ALT (test code = 2219) 19 U/L 5-40 TSH + FREE T4 [id number] 06:45:43* Test Item Value Reference Range Interpretation Comme nts TSH, THIRD GENERATION (test code = 282) 4.080 UIU/ML 0.400-4.100 FREE T4 (THYROXINE) (test co de = 2823) 1.06 NG/DL 0.80-1.90 HEMOGLOBIN [id number] 02:04:49* Test Item Value Reference Range Interpretation Comme [facility] HEMOGLOBIN A1c (test code = 02016) 5.9 % 4.2-5.6 H [employer] GUIDELINES FOR HGB A1C: PREDIABETES/INCREASED RISK . . . . . . . 5.7-6.4% DIAGNOSIS OF DIABETES . . . . . . . . . >=6.5% WITH CONFIRMATION OR APPROPRIATE SYMPTOMS NOTE: ASSAY MAY BE AFFECTED BY HEMOGLOBINOPATHIES (SICKLE CELL ANEMIA, S-C DISEASE, OTHERS) OR ARTIFICIALLY LOWERED BY DECREASED RED CELL SURVIVAL (HEMOLYTIC ANEMIAS, BLOOD LOSS, ETC.). CONSIDER ALTERNATE TESTING OR LABORATORY CONSULTATION. TSH + FREE T4 [id number] 00:00:00* Test Item Value Reference Range Interpretation Comme [facility] TSH, THIRD GENERATION (test code = 2821) 4.080 UIU/ML FREE T4 (THYROXINE) (test co de = 2823) 1.06 NG/DL William QuinonesCOMPREHENSIVE METABOLIC [id number] 00:00:00* Test Item Value Reference Range Interpretation Comme nts GLUCOSE (test code = 2217) 77 MG/DL BUN (test code = 2208) 10 MG/DL CREATININE (test code = 2214) 0.60 MG/DL eGFR (2020 CKD-EPI) (test co de = 65190) 97 ML/MIN/1.73 CALC BUN/CREAT (test code = 2235) 17 RATIO SODIUM (test code = 2231) 145 MEQ/L POTASSIUM (test code = 2228) 4.2 MEQ/L CHLORIDE (test code = 2215) 109 MEQ/L CARBON DIOXIDE (test code = 2206) 26 MEQ/L CALCIUM (test code = 2209) 9.3 MG/DL PROTEIN, TOTAL (test code = 2229) 6.7 G/DL ALBUMIN (test code = 2201) 3.4 G/DL CALC GLOBULIN (test code = 2240) 3.3 G/DL CALC A/G RATIO (test code = 2234) 1.0 RATIO BILIRUBIN, TOTAL (test code = 2207) 0.4 MG/DL ALKALINE PHOSPHATASE (test code = 2204) 48 U/L AST (test code = 2218) 24 U/L ALT (test code = 2219) 19 U/L William QuinonesHEMOGLOBIN [id number] 00:00:00* Test Item Value Reference Range Interpretation Comme [facility] HEMOGLOBIN A1c (test code = 83222) 5.9 % William QuinonesLIPID [id number] 00:00:00* Test Item Value Reference Range Interpretation Comme nts CHOLESTEROL (test code = 2210) 226 MG/DL TRIGLYCERIDES (test code = 2232) 104 MG/DL HDL CHOLESTEROL (test code = 2220) 55 MG/DL CALC LDL CHOL (test code = 2237) 149 MG/DL RISK RATIO LDL/HDL (test cod e = 2238) 2.71 RATIO William QuinonesTSH + FREE T4 [id number] 00:00:00* Test Item Value Reference Range Interpretation Comme nts TSH, THIRD GENERATION (test code = 2821) 4.080 UIU/ML FREE T4 (THYROXINE) (test co de = 2823) 1.06 NG/DL William QuinonesCOMPREHENSIVE METABOLIC [id number] 00:00:00* Test Item Value Reference Range Interpretation Comme nts GLUCOSE (test code = 2217) 77 MG/DL BUN (test code = 2208) 10 MG/DL CREATININE (test code = 2214) 0.60 MG/DL eGFR (2020 CKD-EPI) (test co de = 12676) 97 ML/MIN/1.73 CALC BUN/CREAT (test code = 2235) 17 RATIO SODIUM (test code = 2231) 145 MEQ/L POTASSIUM (test code = 2228) 4.2 MEQ/L CHLORIDE (test code = 2215) 109 MEQ/L CARBON DIOXIDE (test code = 2206) 26 MEQ/L CALCIUM (test code = 2209) 9.3 MG/DL PROTEIN, TOTAL (test code = 2229) 6.7 G/DL ALBUMIN (test code = 2201) 3.4 G/DL CALC GLOBULIN (test code = 2240) 3.3 G/DL CALC A/G RATIO (test code = 2234) 1.0 RATIO BILIRUBIN, TOTAL (test code = 2207) 0.4 MG/DL ALKALINE PHOSPHATASE (test code = 2204) 48 U/L AST (test code = 2218) 24 U/L ALT (test code = 2219) 19 U/L William QuinonesHEMOGLOBIN [id number] 00:00:00* Test Item Value Reference Range Interpretation Comme nts HEMOGLOBIN A1c (test code = 95504) 5.9 % William QuinonesLIPID [id number] 00:00:00* Test Item Value Reference Range Interpretation Comme nts CHOLESTEROL (test code = 2210) 226 MG/DL TRIGLYCERIDES (test code = 2232) 104 MG/DL HDL CHOLESTEROL (test code = 2220) 55 MG/DL CALC LDL CHOL (test code = 2237) 149 MG/DL RISK RATIO LDL/HDL (test cod e = 2238) 2.71 RATIO William QuinonesTSH + FREE T4 [id number] 00:00:00* Test Item Value Reference Range Interpretation Comme nts TSH, THIRD GENERATION (test code = 2821) 4.080 UIU/ML FREE T4 (THYROXINE) (test co de = 2823) 1.06 NG/DL William QuinonesCOMPREHENSIVE METABOLIC [id number] 00:00:00* Test Item Value Reference Range Interpretation Comme nts GLUCOSE (test code = 2217) 77 MG/DL BUN (test code = 2208) 10 MG/DL CREATININE (test code = 2214) 0.60 MG/DL eGFR (2020 CKD-EPI) (test co de = 42197) 97 ML/MIN/1.73 CALC BUN/CREAT (test code = 2235) 17 RATIO SODIUM (test code = 2231) 145 MEQ/L POTASSIUM (test code = 2228) 4.2 MEQ/L CHLORIDE (test code = 2215) 109 MEQ/L CARBON DIOXIDE (test code = 2206) 26 MEQ/L CALCIUM (test code = 2209) 9.3 MG/DL PROTEIN, TOTAL (test code = 2229) 6.7 G/DL ALBUMIN (test code = 2201) 3.4 G/DL CALC GLOBULIN (test code = 2240) 3.3 G/DL CALC A/G RATIO (test code = 2234) 1.0 RATIO BILIRUBIN, TOTAL (test code = 2207) 0.4 MG/DL ALKALINE PHOSPHATASE (test code = 2204) 48 U/L AST (test code = 2218) 24 U/L ALT (test code = 2219) 19 U/L William QuinonesHEMOGLOBIN [id number] 00:00:00* Test Item Value Reference Range Interpretation Comme leana HEMOGLOBIN A1c (test code = 69989) 5.9 % William QuinonesLIPID [id number] 00:00:00* Test Item Value Reference Range Interpretation Comme nts CHOLESTEROL (test code = 2210) 226 MG/DL TRIGLYCERIDES (test code = 2232) 104 MG/DL HDL CHOLESTEROL (test code = 2220) 55 MG/DL CALC LDL CHOL (test code = 2237) 149 MG/DL RISK RATIO LDL/HDL (test cod e = 2238) 2.71 RATIO William QuinonesTSH + FREE T4 [id number] 00:00:00* Test Item Value Reference Range Interpretation Comme nts TSH, THIRD GENERATION (test code = 2821) 4.080 UIU/ML FREE T4 (THYROXINE) (test co de = 2823) 1.06 NG/DL William QuinonesCOMPREHENSIVE METABOLIC [id number] 00:00:00* Test Item Value Reference Range Interpretation Comme nts GLUCOSE (test code = 2217) 77 MG/DL BUN (test code = 2208) 10 MG/DL CREATININE (test code = 2214) 0.60 MG/DL eGFR (2020 CKD-EPI) (test co de = 03975) 97 ML/MIN/1.73 CALC BUN/CREAT (test code = 2235) 17 RATIO SODIUM (test code = 2231) 145 MEQ/L POTASSIUM (test code = 2228) 4.2 MEQ/L CHLORIDE (test code = 2215) 109 MEQ/L CARBON DIOXIDE (test code = 2206) 26 MEQ/L CALCIUM (test code = 2209) 9.3 MG/DL PROTEIN, TOTAL (test code = 2229) 6.7 G/DL ALBUMIN (test code = 2201) 3.4 G/DL CALC GLOBULIN (test code = 2240) 3.3 G/DL CALC A/G RATIO (test code = 2234) 1.0 RATIO BILIRUBIN, TOTAL (test code = 2207) 0.4 MG/DL ALKALINE PHOSPHATASE (test code = 2204) 48 U/L AST (test code = 2218) 24 U/L ALT (test code = 2219) 19 U/L William F AustinHEMOGLOBIN [id number] 00:00:00* Test Item Value Reference Range Interpretation Comme nts HEMOGLOBIN A1c (test code = 78018) 5.9 % William QuinonesLIPID [id number] 00:00:00* Test Item Value Reference Range Interpretation Comme nts CHOLESTEROL (test code = 2210) 226 MG/DL TRIGLYCERIDES (test code = 2232) 104 MG/DL HDL CHOLESTEROL (test code = 2220) 55 MG/DL CALC LDL CHOL (test code = 2237) 149 MG/DL RISK RATIO LDL/HDL (test cod e = 2238) 2.71 RATIO William QuinonesTSH + FREE T4 [id number] 00:00:00* Test Item Value Reference Range Interpretation Comme nts TSH, THIRD GENERATION (test code = 2821) 4.080 UIU/ML FREE T4 (THYROXINE) (test co de = 2823) 1.06 NG/DL William QuinonesCOMPREHENSIVE METABOLIC [id number] 00:00:00* Test Item Value Reference Range Interpretation Comme nts GLUCOSE (test code = 2217) 77 MG/DL BUN (test code = 2208) 10 MG/DL CREATININE (test code = 2214) 0.60 MG/DL eGFR (2020 CKD-EPI) (test co de = 77786) 97 ML/MIN/1.73 CALC BUN/CREAT (test code = 2235) 17 RATIO SODIUM (test code = 2231) 145 MEQ/L POTASSIUM (test code = 2228) 4.2 MEQ/L CHLORIDE (test code = 2215) 109 MEQ/L CARBON DIOXIDE (test code = 2206) 26 MEQ/L CALCIUM (test code = 2209) 9.3 MG/DL PROTEIN, TOTAL (test code = 2229) 6.7 G/DL ALBUMIN (test code = 2201) 3.4 G/DL CALC GLOBULIN (test code = 2240) 3.3 G/DL CALC A/G RATIO (test code = 2234) 1.0 RATIO BILIRUBIN, TOTAL (test code = 2207) 0.4 MG/DL ALKALINE PHOSPHATASE (test code = 2204) 48 U/L AST (test code = 2218) 24 U/L ALT (test code = 2219) 19 U/L William QuinonesHEMOGLOBIN [id number] 00:00:00* Test Item Value Reference Range Interpretation Comme nts HEMOGLOBIN A1c (test code = 83950) 5.9 % William QuinonesLIPID [id number] 00:00:00* Test Item Value Reference Range Interpretation Comme nts CHOLESTEROL (test code = 2210) 226 MG/DL TRIGLYCERIDES (test code = 2232) 104 MG/DL HDL CHOLESTEROL (test code = 2220) 55 MG/DL CALC LDL CHOL (test code = 2237) 149 MG/DL RISK RATIO LDL/HDL (test cod e = 2238) 2.71 RATIO William QuinonesTSH + FREE T4 [id number] 00:00:00* Test Item Value Reference Range Interpretation Comme nts TSH, THIRD GENERATION (test code = 2821) 4.080 UIU/ML FREE T4 (THYROXINE) (test co de = 2823) 1.06 NG/DL William QuinonesCOMPREHENSIVE METABOLIC [id number] 00:00:00* Test Item Value Reference Range Interpretation Comme nts GLUCOSE (test code = 2217) 77 MG/DL BUN (test code = 2208) 10 MG/DL CREATININE (test code = 2214) 0.60 MG/DL eGFR (2020 CKD-EPI) (test co de = 13283) 97 ML/MIN/1.73 CALC BUN/CREAT (test code = 2235) 17 RATIO SODIUM (test code = 2231) 145 MEQ/L POTASSIUM (test code = 2228) 4.2 MEQ/L CHLORIDE (test code = 2215) 109 MEQ/L CARBON DIOXIDE (test code = 2206) 26 MEQ/L CALCIUM (test code = 2209) 9.3 MG/DL PROTEIN, TOTAL (test code = 2229) 6.7 G/DL ALBUMIN (test code = 2201) 3.4 G/DL CALC GLOBULIN (test code = 2240) 3.3 G/DL CALC A/G RATIO (test code = 2234) 1.0 RATIO BILIRUBIN, TOTAL (test code = 2207) 0.4 MG/DL ALKALINE PHOSPHATASE (test code = 2204) 48 U/L AST (test code = 2218) 24 U/L ALT (test code = 2219) 19 U/L William QuinonesHEMOGLOBIN [id number] 00:00:00* Test Item Value Reference Range Interpretation Comme nts HEMOGLOBIN A1c (test code = 40100) 5.9 % William QuinonesLIPID [id number] 00:00:00* Test Item Value Reference Range Interpretation Comme nts CHOLESTEROL (test code = 2210) 226 MG/DL TRIGLYCERIDES (test code = 2232) 104 MG/DL HDL CHOLESTEROL (test code = 2220) 55 MG/DL CALC LDL CHOL (test code = 2237) 149 MG/DL RISK RATIO LDL/HDL (test cod e = 2238) 2.71 RATIO William QuinonesTSH + FREE T4 [id number] 00:00:00* Test Item Value Reference Range Interpretation Comme leana TSH, THIRD GENERATION (test code = 2821) 4.080 UIU/ML FREE T4 (THYROXINE) (test co de = 2823) 1.06 NG/DL William QuinonesCOMPREHENSIVE METABOLIC [id number] 00:00:00* Test Item Value Reference Range Interpretation Comme nts GLUCOSE (test code = 2217) 77 MG/DL BUN (test code = 2208) 10 MG/DL CREATININE (test code = 2214) 0.60 MG/DL eGFR (2020 CKD-EPI) (test co de = 74774) 97 ML/MIN/1.73 CALC BUN/CREAT (test code = 2235) 17 RATIO SODIUM (test code = 2231) 145 MEQ/L POTASSIUM (test code = 2228) 4.2 MEQ/L CHLORIDE (test code = 2215) 109 MEQ/L CARBON DIOXIDE (test code = 2206) 26 MEQ/L CALCIUM (test code = 2209) 9.3 MG/DL PROTEIN, TOTAL (test code = 2229) 6.7 G/DL ALBUMIN (test code = 2201) 3.4 G/DL CALC GLOBULIN (test code = 2240) 3.3 G/DL CALC A/G RATIO (test code = 2234) 1.0 RATIO BILIRUBIN, TOTAL (test code = 2207) 0.4 MG/DL ALKALINE PHOSPHATASE (test code = 2204) 48 U/L AST (test code = 2218) 24 U/L ALT (test code = 2219) 19 U/L William QuinonesHEMOGLOBIN [id number] 00:00:00* Test Item Value Reference Range Interpretation Comme leana HEMOGLOBIN A1c (test code = 33702) 5.9 % William QuinonesLIPID [id number] 00:00:00* Test Item Value Reference Range Interpretation Comme nts CHOLESTEROL (test code = 2210) 226 MG/DL TRIGLYCERIDES (test code = 2232) 104 MG/DL HDL CHOLESTEROL (test code = 2220) 55 MG/DL CALC LDL CHOL (test code = 2237) 149 MG/DL RISK RATIO LDL/HDL (test cod e = 2238) 2.71 RATIO William QuinonesTSH + FREE T4 [id number] 00:00:00* Test Item Value Reference Range Interpretation Comme leana TSH, THIRD GENERATION (test code = 2821) 4.080 UIU/ML FREE T4 (THYROXINE) (test co de = 2823) 1.06 NG/DL William QuinonesCOMPREHENSIVE METABOLIC [id number] 00:00:00* Test Item Value Reference Range Interpretation Comme nts GLUCOSE (test code = 2217) 77 MG/DL BUN (test code = 2208) 10 MG/DL CREATININE (test code = 2214) 0.60 MG/DL eGFR (2020 CKD-EPI) (test co de = 14339) 97 ML/MIN/1.73 CALC BUN/CREAT (test code = 2235) 17 RATIO SODIUM (test code = 2231) 145 MEQ/L POTASSIUM (test code = 2228) 4.2 MEQ/L CHLORIDE (test code = 2215) 109 MEQ/L CARBON DIOXIDE (test code = 2206) 26 MEQ/L CALCIUM (test code = 2209) 9.3 MG/DL PROTEIN, TOTAL (test code = 2229) 6.7 G/DL ALBUMIN (test code = 2201) 3.4 G/DL CALC GLOBULIN (test code = 2240) 3.3 G/DL CALC A/G RATIO (test code = 2234) 1.0 RATIO BILIRUBIN, TOTAL (test code = 2207) 0.4 MG/DL ALKALINE PHOSPHATASE (test code = 2204) 48 U/L AST (test code = 2218) 24 U/L ALT (test code = 2219) 19 U/L William QuinonesHEMOGLOBIN [id number] 00:00:00* Test Item Value Reference Range Interpretation Comme nts HEMOGLOBIN A1c (test code = 81387) 5.9 % William QuinonesLIPID [id number] 00:00:00* Test Item Value Reference Range Interpretation Comme nts CHOLESTEROL (test code = 2210) 226 MG/DL TRIGLYCERIDES (test code = 2232) 104 MG/DL HDL CHOLESTEROL (test code = 2220) 55 MG/DL CALC LDL CHOL (test code = 2237) 149 MG/DL RISK RATIO LDL/HDL (test cod e = 2238) 2.71 RATIO William QuinonesPOCT URINALYSIS, [id number] 21:56:00* Test Item Value Reference Range Interpretation Comme nts POCT U SP GRAV (test code = 3255) 1.020 mg/dl 1.005-1.025 POCT PH U (test code = 3254) 6.0 mg/dl 5-8 POCT U LEUK EST (test code = 3263) Negative Negative - Negative POCT U NIT (test code = 3262) Negative Negative - Negati ve POCT U PROT (test code = 3259) Negative Negative - Negative POCT U GLU (test code = 3256) Negative Negative - Negati ve POCT U KETONE (test code = 3258) Negative Negative - Negative POCT U UROBILI (test code = 3260) 0.2 mg/dl 0.2-1 POCT U BILI (test code = 3261) Negative Negative - Negative POCT U BLD (test code = 3257) Negative Negative - Negati ve POCT U COLOR (test code = 3266) Yellow POCT U APPEAR (test code = 3267) [facility] [id number] 21:56:00 * Test Item Value Reference Range Interpretation Comme nts POCT U SP GRAV (test code = 3255) 1.020 mg/dl 1.005-1.025 POCT PH U (test code = 3254) 6.0 mg/dl 5-8 POCT U LEUK EST (test code = 3263) Negative Negative - Negative POCT U NIT (test code = 3262) Negative Negative - Negati ve POCT U PROT (test code = 3259) Negative Negative - Negative POCT U GLU (test code = 3256) Negative Negative - Negati ve POCT U KETONE (test code = 3258) Negative Negative - Negative POCT U UROBILI (test code = 3260) 0.2 mg/dl 0.2-1 POCT U BILI (test code = 3261) Negative Negative - Negative POCT U BLD (test code = 3257) Negative Negative - Negati ve POCT U COLOR (test code = 3266) Yellow POCT U APPEAR (test code = 3267) Clear [facility], ROUTINE SENSITIVITY ON [id number] 12:08:15SPECIMEN NUMBER: [id number] CULTURE, ROUTINE SENSITIVITY ON ALL SPECIMEN NUMBER: [id number] SPECIMEN COMMENT: LEFT UPPER LIMB SOURCE: LEG REPORT STATUS: FINAL DIRECT GRAM STAIN: NO WBCs SEEN NO BACTERIA SEEN ISOLATE NUMBER 1: ORGANISM: 03/20/2023 FEW STAPHYLOCOCCUS SPECIES IDENTIFICATION: 03/21/2023 S TAPHYLOCOCCUS AUREUS STAPH. AUREUS AMOXICILLIN/CA SENSITIVE <=4/2CEFAZOLIN SENSITIVE <=4CLINDAMYCIN SENSITIVE 0.5ERYTHROMYCIN SENSITIVE <=0.25OXACILLIN SENSITIVE 0.5RIFAMPINSENSITIVE <=1TETRACYCLINE SENSITIVE <=1TRIMETH/SULFA SENSITIVE *1 Note 1: <=0.5/9.5VANCOMYCIN SENSITIVE 1 NOTE: NUMBERS DISPLAYED REPRESENT MINIMUM INHIBITORY CONCENTRATION (AC) WHICH IS EXP RESSED IN MCG/ML. UNLESS OTHERWISE INDICATED, ALL TESTING PERFORMED AT [facility] [address] [place] [address] PRISM INSPECTOR: SHARDA VIZCAINO M.D. CLIA NUMBER [id number] [place]. [id number] CULTURE, ROUTINE SENSITIVITY ON [id number] 00:00:00* Test Item Value Reference Range Interpretation Comme nts CULTURE, ROUTINE SENSITIVITY ON ALL (test code = 68605) SPECIMEN NUMBER: [id number] William QuinonesCULTURE, ROUTINE SENSITIVITY ON [id number] 00:00:00* Test Item Value Reference Range Interpretation Comme nts CULTURE, ROUTINE SENSITIVITY ON ALL (test code = 41285) SPECIMEN NUMBER: [id number] William QuinonesCULTURE, ROUTINE SENSITIVITY ON [id number] 00:00:00* Test Item Value Reference Range Interpretation Comme nts CULTURE, ROUTINE SENSITIVITY ON ALL (test code = 74417) SPECIMEN NUMBER: [id number] William QuinonesCULTURE, ROUTINE SENSITIVITY ON [id number] 00:00:00* Test Item Value Reference Range Interpretation Comme nts CULTURE, ROUTINE SENSITIVITY ON ALL (test code = 43423) SPECIMEN NUMBER: [id number] William QuinonesCULTURE, ROUTINE SENSITIVITY ON [id number] 00:00:00* Test Item Value Reference Range Interpretation Comme nts CULTURE, ROUTINE SENSITIVITY ON ALL (test code = 59652) SPECIMEN NUMBER: [id number] William QuinonesCULTURE, ROUTINE SENSITIVITY ON [id number] 00:00:00* Test Item Value Reference Range Interpretation Comme nts CULTURE, ROUTINE SENSITIVITY ON ALL (test code = 96425) SPECIMEN NUMBER: [id number] William QuinonesCULTURE, ROUTINE SENSITIVITY ON [id number] 00:00:00* Test Item Value Reference Range Interpretation Comme nts CULTURE, ROUTINE SENSITIVITY ON ALL (test code = 57975) SPECIMEN NUMBER: [id number] William QuinonesCULTURE, ROUTINE SENSITIVITY ON [id number] 00:00:00* Test Item Value Reference Range Interpretation Comme nts CULTURE, ROUTINE SENSITIVITY ON ALL (test code = 62185) SPECIMEN NUMBER: [id number] William QuinonesCOMP. METABOLIC PANEL ([id number] 21:21:23* Test Item Value Reference Range Interpretation Comme nts NA (test code = 5741371412) 140 mmol/L 135-145 K (test code = 4360436213) 4.1 mmol/L 3.5-5.0 CL (test code = 0748132081) 106 mmol/L 98-108 CO2 TOTAL (test code = 6636034521) 27 mmol/L 23-31 AGAP (test code = 1105342596) 7 2-16 BUN (test code = 1868186046) 17 mg/dL 7-23 GLUCOSE (test code = 7168018946) 96 mg/dL 70-110 CREATININE (test code = 8590493662) 0.56 mg/dL 0.50-1.04 TOTAL BILI (test code = 0547176567) 0.7 mg/dL 0.1-1.1 CALCIUM (test code = 7048058103) 9.1 mg/dL 8.6-10.6 T PROTEIN (test code = 4083151459) 7.4 g/dL 6.3-8.2 ALBUMIN (test code = 7586329021) 3.7 g/dL 3.5-5.0 ALK PHOS (test code = 9514548532) 62 U/L 34-122 ALTv (test code = 1742-6) 28 U/L 5-35 AST(SGOT) (test code = 4198133611) 30 U/L 13-40 eGFR (test code = 1741106013) 107.3 mL/min/1.73m2 WILLY (test code = WILLY) Association of Glomerular Filtration Rate (GFR) and Staging of Kidney Disease* + + +- +| GFR (mL/min/1.73 m2) ?| With Kidney Damage ?| ?Without Kidney Damage+ ------+ ----+ ------+| ?>90 ?| ?Stage one ?| ? Normal ?+ -+ + -+| ?60-89 ?| ?Stage two ?| ? Decreased GFR ? + + +- +| ?30-59 ?| ?Stage three ?| ? Stage three ? + + +- +| ?15-29 ?| ?Stage four ? | ? Stage four ?+ -+ + -+| ?<15 (or dialysis) ? ?| ?Stage five ? | ? Stage five ?+ -+ + -+ *Each stage assumes the associated GFR level has been in effect for at least three months. ?Stages 1 to 5, with or without kidney disease, indicate chronic kidney disease. Notes: Determination of stages one and two (with eGFR >59mL/min/1.73 m2) requires estimation of kidney damage for at least three months as defined by structural or functional abnormalities of the kidney, manifested by either:Pathological abnormalities or Markers of kidney damage (including abnormalities in the composition of the blood or urine or abnormalities in imaging tests). [facility] WITH [id number] 21:11:59* Test Item Value Reference Range Interpretation Comme nts WBC (test code = 6690-2) 10.26 See_Comment [Automated [employer]] The system which generated this result transmitted reference range: 4.30 - 11.10 10*3/?L. The reference range was not used to interpret this result as normal/abnormal. RBC (test code = 789-8) 4.70 See_Comment [Automated messa ge] The system which generated this result transmitted reference range: 3.93 - 5.25 10*6/?L. The reference range was not used to interpret this result as normal/abnormal. HGB (test code = 718-7) 14.1 g/dL 11.6-15.0 HCT (test code = 4544-3) 42.6 % 35.7-45.2 MCV (test code = 787-2) 90.6 fL 80.6-95.5 MCH (test code = 785-6) 30.0 pg 25.9-32.8 MCHC (test code = 786-4) 33.1 g/dL 31.6-35.1 RDW-SD (test code = 98932-3) 50.2 fL 39.0-49.9 H RDW-CV (test code = 788-0) 15.4 % 12.0-15.5 PLT (test code = 777-3) 190 See_Comment [Automated [employer]] The system which generated this result transmitted reference range: 166 - 358 10*3/?L. The reference range was not used to interpret this result as normal/abnormal. MPV (test code = 27916-7) 10.4 fL 9.5-12.9 NRBC/100 WBC (test code = 5158811450) 0.0 See_Comment [Automated [employer]] The system which generated this result transmitted reference range: 0.0 - 10.0 /100 WBCs. The reference range was not used to interpret this result as normal/abnormal. NRBC x10^3 (test code = 0015250837) See_Comment [Automated [place] ge] The system which generated this result transmitted reference range: 10*3/?L. The reference range was not used to interpret this result as normal/abnormal. GRAN MAT (NEUT) % (test code = 770-8) 64.0 % IMM GRAN % (test code = 1490230887) 0.30 % LYMPH % (test code = 736-9) 25.4 % MONO % (test code = 5905-5) 6.3 % EOS % (test code = 713-8) 3.6 % BASO % (test code = 706-2) 0.4 % GRAN MAT x10^3(ANC) (test code = 5646545076) 6.56 10*3/uL 1.88-7.09 IMM GRAN x10^3 (test code = 9480172440) 0.03 10*3/uL 0.00-0.06 LYMPH x10^3 (test code = 731-0) 2.61 10*3/uL 1.32-3.29 MONO x10^3 (test code = 742-7) 0.65 10*3/uL 0.33-0.92 EOS x10^3 (test code = 711-2) 0.37 10*3/uL 0.03-0.39 BASO x10^3 (test code = 704-7) 0.04 10*3/uL 0.01-0.07 Lab Interpretation (test code = 12711-7) Abnormal [facility] URINALYSIS, [id number] 19:22:00 * Test Item Value Reference Range Interpretation Comme nts POCT U SP GRAV (test code = 3255) 1.010 mg/dl 1.005-1.025 POCT PH U (test code = 3254) 5 mg/dl 5-8 POCT U LEUK EST (test code = 3263) large Negative - Negative POCT U NIT (test code = 3262) negative Negative - Negati ve POCT U PROT (test code = 3259) trace Negative - Negative POCT U GLU (test code = 3256) negative Negative - Negati ve POCT U KETONE (test code = 3258) negative Negative - Negative POCT U UROBILI (test code = 3260) 0.2 mg/dl 0.2-1 POCT U BILI (test code = 3261) negative Negative - Negative POCT U BLD (test code = 3257) small Negative - Negati ve POCT U COLOR (test code = 3266) yellow POCT U APPEAR (test code = 3267) clear Lab Interpretation (test cod e = 77638-4) [facility] [id number] 19:22:00 * Test Item Value Reference Range Interpretation Comme nts POCT U SP GRAV (test code = 3255) 1.010 mg/dl 1.005-1.025 POCT PH U (test code = 3254) 5 mg/dl 5-8 POCT U LEUK EST (test code = 3263) large Negative - Negative POCT U NIT (test code = 3262) negative Negative - Negati ve POCT U PROT (test code = 3259) trace Negative - Negative POCT U GLU (test code = 3256) negative Negative - Negati ve POCT U KETONE (test code = 3258) negative Negative - Negative POCT U UROBILI (test code = 3260) 0.2 mg/dl 0.2-1 POCT U BILI (test code = 3261) negative Negative - Negative POCT U BLD (test code = 3257) small Negative - Negati ve POCT U COLOR (test code = 3266) yellow POCT U APPEAR (test code = 3267) clear Lab Interpretation (test cod e = 89053-6) Normal [facility] URINALYSIS, [id number] 19:49:00 * Test Item Value Reference Range Interpretation Comme nts POCT U SP GRAV (test code = 3255) 1.010 mg/dl 1.005-1.025 POCT PH U (test code = 3254) 5.0 mg/dl 5-8 POCT U LEUK EST (test code = 3263) Large Negative - Negative A POCT U NIT (test code = 3262) Negative Negative - Negati ve POCT U PROT (test code = 3259) Trace Negative - Negative A POCT U GLU (test code = 3256) Negative Negative - Negati ve POCT U KETONE (test code = 3258) Negative Negative - Negative POCT U UROBILI (test code = 3260) 0.2 mg/dl 0.2-1 POCT U BILI (test code = 3261) Negative Negative - Negative POCT U BLD (test code = 3257) Yellow Negative - Negati ve POCT U COLOR (test code = 3266) Clear POCT U APPEAR (test code = 3267) Lab Interpretation (test cod e = 45154-0) [facility] [id number] 19:49:00 * Test Item Value Reference Range Interpretation Comme nts POCT U SP GRAV (test code = 3255) 1.010 mg/dl 1.005-1.025 POCT PH U (test code = 3254) 5.0 mg/dl 5-8 POCT U LEUK EST (test code = 3263) Large Negative - Negative A POCT U NIT (test code = 3262) Negative Negative - Negati ve POCT U PROT (test code = 3259) Trace Negative - Negative A POCT U GLU (test code = 3256) Negative Negative - Negati ve POCT U KETONE (test code = 3258) Negative Negative - Negative POCT U UROBILI (test code = 3260) 0.2 mg/dl 0.2-1 POCT U BILI (test code = 3261) Negative Negative - Negative POCT U BLD (test code = 3257) Yellow Negative - Negati ve POCT U COLOR (test code = 3266) Clear POCT U APPEAR (test code = 3267) Lab Interpretation (test cod e = 98945-2) Abnormal [facility] URINALYSIS, [id number] 20:59:00 * Test Item Value Reference Range Interpretation Comme nts POCT U SP GRAV (test code = 3255) 1.020 mg/dl 1.005-1.025 POCT PH U (test code = 3254) 5 mg/dl 5-8 POCT U LEUK EST (test code = 3263) small Negative - Negative POCT U NIT (test code = 3262) positive Negative - Negati ve POCT U PROT (test code = 3259) Negative - Negative POCT U GLU (test code = 3256) negative Negative - Negati ve POCT U KETONE (test code = 3258) negative Negative - Negative POCT U UROBILI (test code = 3260) 0.2 mg/dl 0.2-1 POCT U BILI (test code = 3261) negative Negative - Negative POCT U BLD (test code = 3257) small Negative - Negati ve POCT U COLOR (test code = 3266) yellow POCT U APPEAR (test code = 3267) clear Lab Interpretation (test cod e = 76335-2) [facility] [id number] 20:59:00 * Test Item Value Reference Range Interpretation Comme nts POCT U SP GRAV (test code = 3255) 1.020 mg/dl 1.005-1.025 POCT PH U (test code = 3254) 5 mg/dl 5-8 POCT U LEUK EST (test code = 3263) small Negative - Negative POCT U NIT (test code = 3262) positive Negative - Negati ve POCT U PROT (test code = 3259) Negative - Negative POCT U GLU (test code = 3256) negative Negative - Negati ve POCT U KETONE (test code = 3258) negative Negative - Negative POCT U UROBILI (test code = 3260) 0.2 mg/dl 0.2-1 POCT U BILI (test code = 3261) negative Negative - Negative POCT U BLD (test code = 3257) small Negative - Negati ve POCT U COLOR (test code = 3266) yellow POCT U APPEAR (test code = 3267) clear Lab Interpretation (test cod e = 85893-4) [facility] [id number] 07:07:41* Test Item Value Reference Range Interpretation Comme nts HEMOGLOBIN A1c (test code = 10712) 6.3 % 4.2-5.6 H TSH + FREE T4 [id number] 06:09:36* Test Item Value Reference Range Interpretation Comme nts TSH, THIRD GENERATION (test code = 2821) 1.090 UIU/ML 0.400-4.100 FREE T4 (THYROXINE) (test code = 2823) 1.21 NG/DL 0.80-1.90 UNLESS OTHERW ISE INDICATED, [facility] [address] [place] [address] PRISM INSPECTOR: LEE CALLES M.D. CLIA NUMBER [id number] [place]. [id number] LIPID [id number] 04:41:24* Test Item Value Reference Range Interpretation Comme nts CHOLESTEROL (test code = 2210) 253 MG/DL <200 H TRIGLYCERIDES (test code = 2232) 130 MG/DL <150 HDL CHOLESTEROL (test code = 2220) 55 MG/DL >39 CALC LDL CHOL (test code = 2237) 171 MG/DL <100 H NOTE: CALCULATED LDL IS BASED ON SOFIA-VALLECILLO METHOD WHICHINCLUDES ADJUSTABLE TRIGLYCERIDE:VLDL CHOLESTEROL RATIO.THIS FACTOR VARIES BY MEASURED TRIGLYCERIDE AND NON-HDLCHOLESTEROL CONCENTRATIONS WITH INCREASED CALCULATED LDL SEENIN HIGHER TRIGLYCERIDE OR LOWER NON-HDL SPECIMENS. FOR MOREINFORMATION, SEE CLIENT ANNOUNCEMENT AT [email or web address] RISK RATIO LDL/HDL (test code = 2237) 3.11 RATIO <3.22 COMPREHENSIVE METABOLIC [id number] 04:41:24* Test Item Value Reference Range Interpretation Comme nts GLUCOSE (test code = 2216) 113 MG/DL 70-99 H BUN (test code = 2207) 13 MG/DL 8-23 CREATININE (test code = 2213) 0.71 MG/DL 0.60-1.30 eGFR (2020 CKD-EPI) (test code = 61403) 92 ML/MIN/1.73 >60 CALC BUN/CREAT (test code = 223) 18 RATIO 6-28 SODIUM (test code = 2230) 147 MEQ/L 133-146 H POTASSIUM (test code = 2228) 4.6 MEQ/L 3.5-5.4 CHLORIDE (test code = 2214) 109 MEQ/L 95-107 H CARBON DIOXIDE (test code = 2205) 26 MEQ/L 19-31 CALCIUM (test code = 220) 9.8 MG/DL 8.5-10.5 PROTEIN, TOTAL (test code = 2228) 6.9 G/DL 6.1-8.3 ALBUMIN (test code = 2200) 3.5 G/DL 3.5-5.2 CALC GLOBULIN (test code = 2240) 3.4 G/DL 1.9-3.7 CALC A/G RATIO (test code = 223) 1.0 RATIO 1.0-2.6 BILIRUBIN, TOTAL (test code = 2206) 0.2 MG/DL See_Comment [Automated me ssage] The system which generated this result transmitted reference range: <=1.2. The reference range was not used to interpret this result as normal/abnormal. ALKALINE PHOSPHATASE (test code = 2203) 49 U/L 40-142 AST (test code = 2218) 18 U/L 9-40 ALT (test code = 2219) 14 U/L 5-40 LIPID PANEL [ADDED]2022-06-06 00:00:00* Test Item Value Reference Range Interpretation Comme nts CHOLESTEROL (test code = 2210) 253 MG/DL TRIGLYCERIDES (test code = 2232) 130 MG/DL HDL CHOLESTEROL (test code = 2220) 55 MG/DL CALC LDL CHOL (test code = 2237) 171 MG/DL RISK RATIO LDL/HDL (test cod e = 2238) 3.11 RATIO William QuinonesCOMPREHENSIVE METABOLIC PANEL [ADDED]2022-06-06 00:00:00* Test Item Value Reference Range Interpretation Comme nts GLUCOSE (test code = 2217) 113 MG/DL BUN (test code = 2208) 13 MG/DL CREATININE (test code = 2214) 0.71 MG/DL eGFR (2020 CKD-EPI) (test co de = 59748) 92 ML/MIN/1.73 CALC BUN/CREAT (test code = 2235) 18 RATIO SODIUM (test code = 2231) 147 MEQ/L POTASSIUM (test code = 2228) 4.6 MEQ/L CHLORIDE (test code = 2215) 109 MEQ/L CARBON DIOXIDE (test code = 2206) 26 MEQ/L CALCIUM (test code = 2209) 9.8 MG/DL PROTEIN, TOTAL (test code = 2229) 6.9 G/DL ALBUMIN (test code = 2201) 3.5 G/DL CALC GLOBULIN (test code = 2240) 3.4 G/DL CALC A/G RATIO (test code = 2234) 1.0 RATIO BILIRUBIN, TOTAL (test code = 2207) 0.2 MG/DL ALKALINE PHOSPHATASE (test code = 2204) 49 U/L AST (test code = 2218) 18 U/L ALT (test code = 2219) 14 U/L William QuinonesTSH + FREE T4 PROFILE [ADDED]2022-06-06 00:00:00* Test Item Value Reference Range Interpretation Comme nts TSH, THIRD GENERATION (test code = 2821) 1.090 UIU/ML FREE T4 (THYROXINE) (test co de = 2823) 1.21 NG/DL William QuinonesHEMOGLOBIN A1c [ADDED]2022-06-06 00:00:00* Test Item Value Reference Range Interpretation Comme nts HEMOGLOBIN A1c (test code = 51120) 6.3 % William QuinonesLIPID PANEL [ADDED]2022-06-06 00:00:00* Test Item Value Reference Range Interpretation Comme nts CHOLESTEROL (test code = 2210) 253 MG/DL TRIGLYCERIDES (test code = 2232) 130 MG/DL HDL CHOLESTEROL (test code = 2220) 55 MG/DL CALC LDL CHOL (test code = 2237) 171 MG/DL RISK RATIO LDL/HDL (test cod e = 2238) 3.11 RATIO William QuinonesCOMPREHENSIVE METABOLIC PANEL [ADDED]2022-06-06 00:00:00* Test Item Value Reference Range Interpretation Comme nts GLUCOSE (test code = 2217) 113 MG/DL BUN (test code = 2208) 13 MG/DL CREATININE (test code = 2214) 0.71 MG/DL eGFR (2020 CKD-EPI) (test co de = 03273) 92 ML/MIN/1.73 CALC BUN/CREAT (test code = 2235) 18 RATIO SODIUM (test code = 2231) 147 MEQ/L POTASSIUM (test code = 2228) 4.6 MEQ/L CHLORIDE (test code = 2215) 109 MEQ/L CARBON DIOXIDE (test code = 2206) 26 MEQ/L CALCIUM (test code = 2209) 9.8 MG/DL PROTEIN, TOTAL (test code = 2229) 6.9 G/DL ALBUMIN (test code = 2201) 3.5 G/DL CALC GLOBULIN (test code = 2240) 3.4 G/DL CALC A/G RATIO (test code = 2234) 1.0 RATIO BILIRUBIN, TOTAL (test code = 2207) 0.2 MG/DL ALKALINE PHOSPHATASE (test code = 2204) 49 U/L AST (test code = 2218) 18 U/L ALT (test code = 2219) 14 U/L William QuinonesHEMOGLOBIN A1c [ADDED]2022-06-06 00:00:00* Test Item Value Reference Range Interpretation Comme nts HEMOGLOBIN A1c (test code = 13420) 6.3 % TSH + FREE T4 PROFILE [ADDED]2022-06-06 00:00:00* Test Item Value Reference Range Interpretation Comme nts TSH, THIRD GENERATION (test code = 2821) 1.090 UIU/ML FREE T4 (THYROXINE) (test co de = 2823) 1.21 NG/DL William QuinonesHEMOGLOBIN A1c [ADDED]2022-06-06 00:00:00* Test Item Value Reference Range Interpretation Comme nts HEMOGLOBIN A1c (test code = 09863) 6.3 % William QuinonesLIPID PANEL [ADDED]2022-06-06 00:00:00* Test Item Value Reference Range Interpretation Comme nts CHOLESTEROL (test code = 2210) 253 MG/DL TRIGLYCERIDES (test code = 2232) 130 MG/DL HDL CHOLESTEROL (test code = 2220) 55 MG/DL CALC LDL CHOL (test code = 2237) 171 MG/DL RISK RATIO LDL/HDL (test cod e = 2238) 3.11 RATIO LIPID PANEL [ADDED]2022-06-06 00:00:00* Test Item Value Reference Range Interpretation Comme nts CHOLESTEROL (test code = 2210) 253 MG/DL TRIGLYCERIDES (test code = 2232) 130 MG/DL HDL CHOLESTEROL (test code = 2220) 55 MG/DL CALC LDL CHOL (test code = 2237) 171 MG/DL RISK RATIO LDL/HDL (test cod e = 2238) 3.11 RATIO William QuinonesCOMPREHENSIVE METABOLIC PANEL [ADDED]2022-06-06 00:00:00* Test Item Value Reference Range Interpretation Comme nts GLUCOSE (test code = 2217) 113 MG/DL BUN (test code = 2208) 13 MG/DL CREATININE (test code = 2214) 0.71 MG/DL eGFR (2020 CKD-EPI) (test co de = 68669) 92 ML/MIN/1.73 CALC BUN/CREAT (test code = 2235) 18 RATIO SODIUM (test code = 2231) 147 MEQ/L POTASSIUM (test code = 2228) 4.6 MEQ/L CHLORIDE (test code = 2215) 109 MEQ/L CARBON DIOXIDE (test code = 2206) 26 MEQ/L CALCIUM (test code = 2209) 9.8 MG/DL PROTEIN, TOTAL (test code = 2229) 6.9 G/DL ALBUMIN (test code = 2201) 3.5 G/DL CALC GLOBULIN (test code = 2240) 3.4 G/DL CALC A/G RATIO (test code = 2234) 1.0 RATIO BILIRUBIN, TOTAL (test code = 2207) 0.2 MG/DL ALKALINE PHOSPHATASE (test code = 2204) 49 U/L AST (test code = 2218) 18 U/L ALT (test code = 2219) 14 U/L William Valencia JoniCOMPREHENSIVE METABOLIC PANEL [ADDED]2022-06-06 00:00:00* Test Item Value Reference Range Interpretation Comme nts GLUCOSE (test code = 2217) 113 MG/DL BUN (test code = 2208) 13 MG/DL CREATININE (test code = 2214) 0.71 MG/DL eGFR (2020 CKD-EPI) (test co de = 55586) 92 ML/MIN/1.73 CALC BUN/CREAT (test code = 2235) 18 RATIO SODIUM (test code = 2231) 147 MEQ/L POTASSIUM (test code = 2228) 4.6 MEQ/L CHLORIDE (test code = 2215) 109 MEQ/L CARBON DIOXIDE (test code = 2206) 26 MEQ/L CALCIUM (test code = 2209) 9.8 MG/DL PROTEIN, TOTAL (test code = 2229) 6.9 G/DL ALBUMIN (test code = 2201) 3.5 G/DL CALC GLOBULIN (test code = 2240) 3.4 G/DL CALC A/G RATIO (test code = 2234) 1.0 RATIO BILIRUBIN, TOTAL (test code = 2207) 0.2 MG/DL ALKALINE PHOSPHATASE (test code = 2204) 49 U/L AST (test code = 2218) 18 U/L ALT (test code = 2219) 14 U/L TSH + FREE T4 PROFILE [ADDED]2022-06-06 00:00:00* Test Item Value Reference Range Interpretation Comme nts TSH, THIRD GENERATION (test code = 2821) 1.090 UIU/ML FREE T4 (THYROXINE) (test co de = 2823) 1.21 NG/DL William Valencia JoniTSH + FREE T4 PROFILE [ADDED]2022-06-06 00:00:00* Test Item Value Reference Range Interpretation Comme nts TSH, THIRD GENERATION (test code = 2821) 1.090 UIU/ML FREE T4 (THYROXINE) (test co de = 2823) 1.21 NG/DL HEMOGLOBIN A1c [ADDED]2022-06-06 00:00:00* Test Item Value Reference Range Interpretation Comme nts HEMOGLOBIN A1c (test code = 17265) 6.3 % William F AustinLIPID PANEL [ADDED]2022-06-06 00:00:00* Test Item Value Reference Range Interpretation Comme nts CHOLESTEROL (test code = 2210) 253 MG/DL TRIGLYCERIDES (test code = 2232) 130 MG/DL HDL CHOLESTEROL (test code = 2220) 55 MG/DL CALC LDL CHOL (test code = 2237) 171 MG/DL RISK RATIO LDL/HDL (test cod e = 2238) 3.11 RATIO William QuinonesCOMPREHENSIVE METABOLIC PANEL [ADDED]2022-06-06 00:00:00* Test Item Value Reference Range Interpretation Comme nts GLUCOSE (test code = 2217) 113 MG/DL BUN (test code = 2208) 13 MG/DL CREATININE (test code = 2214) 0.71 MG/DL eGFR (2020 CKD-EPI) (test co de = 11639) 92 ML/MIN/1.73 CALC BUN/CREAT (test code = 2235) 18 RATIO SODIUM (test code = 2231) 147 MEQ/L POTASSIUM (test code = 2228) 4.6 MEQ/L CHLORIDE (test code = 2215) 109 MEQ/L CARBON DIOXIDE (test code = 2206) 26 MEQ/L CALCIUM (test code = 2209) 9.8 MG/DL PROTEIN, TOTAL (test code = 2229) 6.9 G/DL ALBUMIN (test code = 2201) 3.5 G/DL CALC GLOBULIN (test code = 2240) 3.4 G/DL CALC A/G RATIO (test code = 2234) 1.0 RATIO BILIRUBIN, TOTAL (test code = 2207) 0.2 MG/DL ALKALINE PHOSPHATASE (test code = 2204) 49 U/L AST (test code = 2218) 18 U/L ALT (test code = 2219) 14 U/L William QuinonesTSH + FREE T4 PROFILE [ADDED]2022-06-06 00:00:00* Test Item Value Reference Range Interpretation Comme nts TSH, THIRD GENERATION (test code = 2821) 1.090 UIU/ML FREE T4 (THYROXINE) (test co de = 2823) 1.21 NG/DL William QuinonesHEMOGLOBIN A1c [ADDED]2022-06-06 00:00:00* Test Item Value Reference Range Interpretation Comme nts HEMOGLOBIN A1c (test code = 65951) 6.3 % William QuinonesLIPID PANEL [ADDED]2022-06-06 00:00:00* Test Item Value Reference Range Interpretation Comme nts CHOLESTEROL (test code = 2210) 253 MG/DL TRIGLYCERIDES (test code = 2232) 130 MG/DL HDL CHOLESTEROL (test code = 2220) 55 MG/DL CALC LDL CHOL (test code = 2237) 171 MG/DL RISK RATIO LDL/HDL (test cod e = 2238) 3.11 RATIO William QuinonesCOMPREHENSIVE METABOLIC PANEL [ADDED]2022-06-06 00:00:00* Test Item Value Reference Range Interpretation Comme nts GLUCOSE (test code = 2217) 113 MG/DL BUN (test code = 2208) 13 MG/DL CREATININE (test code = 2214) 0.71 MG/DL eGFR (2020 CKD-EPI) (test co de = 20558) 92 ML/MIN/1.73 CALC BUN/CREAT (test code = 2235) 18 RATIO SODIUM (test code = 2231) 147 MEQ/L POTASSIUM (test code = 2228) 4.6 MEQ/L CHLORIDE (test code = 2215) 109 MEQ/L CARBON DIOXIDE (test code = 2206) 26 MEQ/L CALCIUM (test code = 2209) 9.8 MG/DL PROTEIN, TOTAL (test code = 2229) 6.9 G/DL ALBUMIN (test code = 2201) 3.5 G/DL CALC GLOBULIN (test code = 2240) 3.4 G/DL CALC A/G RATIO (test code = 2234) 1.0 RATIO BILIRUBIN, TOTAL (test code = 2207) 0.2 MG/DL ALKALINE PHOSPHATASE (test code = 2204) 49 U/L AST (test code = 2218) 18 U/L ALT (test code = 2219) 14 U/L William QuinonesTSH + FREE T4 PROFILE [ADDED]2022-06-06 00:00:00* Test Item Value Reference Range Interpretation Comme nts TSH, THIRD GENERATION (test code = 2821) 1.090 UIU/ML FREE T4 (THYROXINE) (test co de = 2823) 1.21 NG/DL William QuinonesHEMOGLOBIN A1c [ADDED]2022-06-06 00:00:00* Test Item Value Reference Range Interpretation Comme nts HEMOGLOBIN A1c (test code = 08827) 6.3 % William QuinonesLIPID PANEL [ADDED]2022-06-06 00:00:00* Test Item Value Reference Range Interpretation Comme nts CHOLESTEROL (test code = 2210) 253 MG/DL TRIGLYCERIDES (test code = 2232) 130 MG/DL HDL CHOLESTEROL (test code = 2220) 55 MG/DL CALC LDL CHOL (test code = 2237) 171 MG/DL RISK RATIO LDL/HDL (test cod e = 2238) 3.11 RATIO William QuinonesCOMPREHENSIVE METABOLIC PANEL [ADDED]2022-06-06 00:00:00* Test Item Value Reference Range Interpretation Comme nts GLUCOSE (test code = 2217) 113 MG/DL BUN (test code = 2208) 13 MG/DL CREATININE (test code = 2214) 0.71 MG/DL eGFR (2020 CKD-EPI) (test co de = 35744) 92 ML/MIN/1.73 CALC BUN/CREAT (test code = 2235) 18 RATIO SODIUM (test code = 2231) 147 MEQ/L POTASSIUM (test code = 2228) 4.6 MEQ/L CHLORIDE (test code = 2215) 109 MEQ/L CARBON DIOXIDE (test code = 2206) 26 MEQ/L CALCIUM (test code = 2209) 9.8 MG/DL PROTEIN, TOTAL (test code = 2229) 6.9 G/DL ALBUMIN (test code = 2201) 3.5 G/DL CALC GLOBULIN (test code = 2240) 3.4 G/DL CALC A/G RATIO (test code = 2234) 1.0 RATIO BILIRUBIN, TOTAL (test code = 2207) 0.2 MG/DL ALKALINE PHOSPHATASE (test code = 2204) 49 U/L AST (test code = 2218) 18 U/L ALT (test code = 2219) 14 U/L William QuinonesTSH + FREE T4 PROFILE [ADDED]2022-06-06 00:00:00* Test Item Value Reference Range Interpretation Comme nts TSH, THIRD GENERATION (test code = 2821) 1.090 UIU/ML FREE T4 (THYROXINE) (test co de = 2823) 1.21 NG/DL William QuinonesHEMOGLOBIN A1c [ADDED]2022-06-06 00:00:00* Test Item Value Reference Range Interpretation Comme nts HEMOGLOBIN A1c (test code = 98697) 6.3 % William QuinonesLIPID PANEL [ADDED]2022-06-06 00:00:00* Test Item Value Reference Range Interpretation Comme nts CHOLESTEROL (test code = 2210) 253 MG/DL TRIGLYCERIDES (test code = 2232) 130 MG/DL HDL CHOLESTEROL (test code = 2220) 55 MG/DL CALC LDL CHOL (test code = 2237) 171 MG/DL RISK RATIO LDL/HDL (test cod e = 2238) 3.11 RATIO William QuinonesCOMPREHENSIVE METABOLIC PANEL [ADDED]2022-06-06 00:00:00* Test Item Value Reference Range Interpretation Comme nts GLUCOSE (test code = 2217) 113 MG/DL BUN (test code = 2208) 13 MG/DL CREATININE (test code = 2214) 0.71 MG/DL eGFR (2020 CKD-EPI) (test co de = 13926) 92 ML/MIN/1.73 CALC BUN/CREAT (test code = 2235) 18 RATIO SODIUM (test code = 2231) 147 MEQ/L POTASSIUM (test code = 2228) 4.6 MEQ/L CHLORIDE (test code = 2215) 109 MEQ/L CARBON DIOXIDE (test code = 2206) 26 MEQ/L CALCIUM (test code = 2209) 9.8 MG/DL PROTEIN, TOTAL (test code = 2229) 6.9 G/DL ALBUMIN (test code = 2201) 3.5 G/DL CALC GLOBULIN (test code = 2240) 3.4 G/DL CALC A/G RATIO (test code = 2234) 1.0 RATIO BILIRUBIN, TOTAL (test code = 2207) 0.2 MG/DL ALKALINE PHOSPHATASE (test code = 2204) 49 U/L AST (test code = 2218) 18 U/L ALT (test code = 2219) 14 U/L William QuinonesTSH + FREE T4 PROFILE [ADDED]2022-06-06 00:00:00* Test Item Value Reference Range Interpretation Comme nts TSH, THIRD GENERATION (test code = 2821) 1.090 UIU/ML FREE T4 (THYROXINE) (test co de = 2823) 1.21 NG/DL William QuinonesHEMOGLOBIN A1c [ADDED]2022-06-06 00:00:00* Test Item Value Reference Range Interpretation Comme nts HEMOGLOBIN A1c (test code = 41598) 6.3 % William QuinonesLIPID PANEL [ADDED]2022-06-06 00:00:00* Test Item Value Reference Range Interpretation Comme nts CHOLESTEROL (test code = 2210) 253 MG/DL TRIGLYCERIDES (test code = 2232) 130 MG/DL HDL CHOLESTEROL (test code = 2220) 55 MG/DL CALC LDL CHOL (test code = 2237) 171 MG/DL RISK RATIO LDL/HDL (test cod e = 2238) 3.11 RATIO William QuinonesCOMPREHENSIVE METABOLIC PANEL [ADDED]2022-06-06 00:00:00* Test Item Value Reference Range Interpretation Comme nts GLUCOSE (test code = 2217) 113 MG/DL BUN (test code = 2208) 13 MG/DL CREATININE (test code = 2214) 0.71 MG/DL eGFR (2020 CKD-EPI) (test co de = 02133) 92 ML/MIN/1.73 CALC BUN/CREAT (test code = 2235) 18 RATIO SODIUM (test code = 2231) 147 MEQ/L POTASSIUM (test code = 2228) 4.6 MEQ/L CHLORIDE (test code = 2215) 109 MEQ/L CARBON DIOXIDE (test code = 2206) 26 MEQ/L CALCIUM (test code = 2209) 9.8 MG/DL PROTEIN, TOTAL (test code = 2229) 6.9 G/DL ALBUMIN (test code = 2201) 3.5 G/DL CALC GLOBULIN (test code = 2240) 3.4 G/DL CALC A/G RATIO (test code = 2234) 1.0 RATIO BILIRUBIN, TOTAL (test code = 2207) 0.2 MG/DL ALKALINE PHOSPHATASE (test code = 2204) 49 U/L AST (test code = 2218) 18 U/L ALT (test code = 2219) 14 U/L William QuinonesTSH + FREE T4 PROFILE [ADDED]2022-06-06 00:00:00* Test Item Value Reference Range Interpretation Comme nts TSH, THIRD GENERATION (test code = 2821) 1.090 UIU/ML FREE T4 (THYROXINE) (test co de = 2823) 1.21 NG/DL William QuinonesHEMOGLOBIN A1c [ADDED]2022-06-06 00:00:00* Test Item Value Reference Range Interpretation Comme nts HEMOGLOBIN A1c (test code = 71274) 6.3 % SHANE Wood2022-05-21 11:49:26SPECIMEN NUMBER: [id number] CULTURE, MRSA SPECIMEN NUMBER: [id number] SPECIMEN COMMENT: NASO SOURCE: NASAL REPORT STATUS: FINAL ISOLATE NUMBER 1: ORGANISM: 02/14/2022 STAPHYLOCOCCUS AUREUS IDENTIFICATION: 02/15/2022 NEGATIVE FOR METHICILLIN RESISTANCE STAPHYLOCOCCUS AUREUS (MRSA) MRSAN OXACILLIN SENSITIVE <=0.25 NOTE: NUMBERS DISPLAYED REPRESENT MINIMUM INHIBITORY CONCENTRATION (AC) WHICH IS EXPRESSED IN MCG/ML. UNLESS OTHERWISE INDICATED, ALL TESTING PERFORMED [facility] [employer] [address] [place] [address] PRISM INSPECTOR: LEE CALLES M.D. CLIA NUMBER [id number] [facility]. [id number], [id number] 00:00:00* Test Item Value Reference Range Interpretation Comme nts CULTURE, MRSA (test code = 61393) SPECIMEN NUMBER: [id number] SHANE Wood2022-05-21 00:00:00* Test Item Value Reference Range Interpretation Comme nts CULTURE, MRSA (test code = 01976) SPECIMEN NUMBER: [id number] SHANE Wood2022-05-21 00:00:00* Test Item Value Reference Range Interpretation Comme nts CULTURE, MRSA (test code = 31667) SPECIMEN NUMBER: [id number] SHANE [id number] 00:00:00* Test Item Value Reference Range Interpretation Comme nts CULTURE, MRSA (test code = 65127) SPECIMEN NUMBER: [id number] SHANE Wood2022-05-21 00:00:00* Test Item Value Reference Range Interpretation Comme nts CULTURE, MRSA (test code = 37323) SPECIMEN NUMBER: [id number] SHANE Wood2022-05-21 00:00:00* Test Item Value Reference Range Interpretation Comme nts CULTURE, MRSA (test code = 86405) SPECIMEN NUMBER: [id number] SHANE Wood2022-05-21 00:00:00* Test Item Value Reference Range Interpretation Comme nts CULTURE, MRSA (test code = 05165) SPECIMEN NUMBER: [id number] William Dia, [id number] 00:00:00* Test Item Value Reference Range Interpretation Comme nts CULTURE, MRSA (test code = 27029) SPECIMEN NUMBER: [id number] William Dia, [id number] 00:00:00* Test Item Value Reference Range Interpretation Comme nts CULTURE, MRSA (test code = 91305) SPECIMEN NUMBER: [id number] William QuinonesHEMOGLOBIN [id number] 05:51:50* Test Item Value Reference Range Interpretation Comme nts HEMOGLOBIN A1c (test code = 28943) 5.9 % 4.2-5.6 H TSH + FREE T4 [id number] 05:50:16* Test Item Value Reference Range Interpretation Comme nts TSH, THIRD GENERATION (test code = 2821) 2.970 UIU/ML 0.400-4.100 FREE T4 (THYROXINE) (test code = 2823) 1.12 NG/DL 0.80-1.90 UNLESS OTHERW ISE INDICATED, ALL TESTING PERFORMED [facility] [address] [place] [address] PRISM INSPECTOR: LEE CALLES M.D. CLIA NUMBER [id number] [place]. [id number] CBC W/AUTO DIFF WITH [id number] 05:25:41* Test Item Value Reference Range Interpretation Comme nts WBC (test code = 1001) 9.3 K/UL 3.5-11.0 RBC (test code = 1002) 4.16 M/UL 3.80-5.40 HEMOGLOBIN (test code = 1003) 13.2 G/DL 11.5-15.5 HEMATOCRIT (test code = 1004) 38.1 % 34.0-45.0 MCV (test code = 1005) 91.6 fL 80.0-99.0 MCH (test code = 1006) 31.7 PG 25.0-33.0 MCHC (test code = 1007) 34.6 G/DL 31.0-36.0 RDW (test code = 1038) 14.6 % 11.5-15.0 NEUTROPHILS (test code = 1008) 54.6 % LYMPHOCYTES (test code = 1010) 34.7 % MONOCYTES (test code = 1011) 7.5 % EOSINOPHILS (test code = 1012) 2.4 % BASOPHILS (test code = 1013) 0.5 % IMMATURE GRANULOCYTES (test code = 1036) 0.3 % NUCLEATED RBCS (test code = 1065) 0.0 /100 WBC'S See_Comment [Automated [place] ge] The system which generated this result transmitted reference range: 0.0. The reference range was not used to interpret this result as normal/abnormal. PLATELET COUNT (test code = 1015) 282 K/UL 130-400 ABSOLUTE NEUTROPHILS (test code = 1066) 5.05 K/UL 1.50-7.50 ABSOLUTE LYMPHOCYTES (test code = 1067) 3.21 K/UL 1.00-4.00 ABSOLUTE MONOCYTES (test code = 1068) 0.69 K/UL 0.20-1.00 ABSOLUTE EOSINOPHILS (test code = 1040) 0.22 K/UL 0.00-0.50 ABSOLUTE BASOPHILS (test code = 1069) 0.05 K/UL 0.00-0.20 ABS IMMATURE GRANULOCYTES (test code = 1020) 0.03 K/UL 0.00-0.10 ABS NUCLEATED RBCS (test code = 09172) 0.00 K/UL 0.00-0.11 LIPID [id number] 03:17:40* Test Item Value Reference Range Interpretation Comme nts CHOLESTEROL (test code = 2210) 216 MG/DL <200 H TRIGLYCERIDES (test code = 2232) 98 MG/DL <150 HDL CHOLESTEROL (test code = 2220) 63 MG/DL >39 CALC LDL CHOL (test code = 2237) 133 MG/DL <100 H NOTE: CALCULATED LDL IS BASED ON SOFIA-VALLECILLO METHOD WHICHINCLUDES ADJUSTABLE TRIGLYCERIDE:VLDL CHOLESTEROL RATIO.THIS FACTOR VARIES BY MEASURED TRIGLYCERIDE AND NON-HDLCHOLESTEROL CONCENTRATIONS WITH INCREASED CALCULATED LDL SEENIN HIGHER TRIGLYCERIDE OR LOWER NON-HDL SPECIMENS. FOR MOREINFORMATION, SEE CLIENT ANNOUNCEMENT AT [email or web address] RISK RATIO LDL/HDL (test code = 2238) 2.11 RATIO <3.22 COMPREHENSIVE METABOLIC [id number] 03:17:40* Test Item Value Reference Range Interpretation Comme nts GLUCOSE (test code = 2217) 89 MG/DL 70-99 BUN (test code = 2207) 13 MG/DL 8-23 CREATININE (test code = 4) 0.68 MG/DL 0.60-1.30 eGFR (2020 CKD-EPI) (test code = 88628) 95 ML/MIN/1.73 >60 CALC BUN/CREAT (test code = 2235) 19 RATIO 6-28 SODIUM (test code = 223) 145 MEQ/L 133-146 POTASSIUM (test code = 222) 4.6 MEQ/L 3.5-5.4 CHLORIDE (test code = 2214) 108 MEQ/L 95-107 H CARBON DIOXIDE (test code = 2205) 27 MEQ/L 19-31 CALCIUM (test code = 2208) 9.4 MG/DL 8.5-10.5 PROTEIN, TOTAL (test code = 2228) 7.1 G/DL 6.1-8.3 ALBUMIN (test code = 2200) 4.0 G/DL 3.5-5.2 CALC GLOBULIN (test code = 2239) 3.1 G/DL 1.9-3.7 CALC A/G RATIO (test code = 223) 1.3 RATIO 1.0-2.6 BILIRUBIN, TOTAL (test code = 2206) 0.4 MG/DL See_Comment [Automated me ssage] The system which generated this result transmitted reference range: <=1.2. The reference range was not used to interpret this result as normal/abnormal. ALKALINE PHOSPHATASE (test code = 2203) 43 U/L 40-142 AST (test code = 2217) 20 U/L 9-40 ALT (test code = 2219) 17 U/L 5-40 HEMOGLOBIN A1c [ADDED]2022-02-14 00:00:00* Test Item Value Reference Range Interpretation Comme nts HEMOGLOBIN A1c (test code = 38837) 5.9 % William Valencia AustinLIPID PANEL [ADDED]2022-02-14 00:00:00* Test Item Value Reference Range Interpretation Comme nts CHOLESTEROL (test code = 2209) 216 MG/DL TRIGLYCERIDES (test code = 223) 98 MG/DL HDL CHOLESTEROL (test code = 2219) 63 MG/DL CALC LDL CHOL (test code = 2236) 133 MG/DL RISK RATIO LDL/HDL (test cod e = 2238) 2.11 RATIO William QuinonesCOMPREHENSIVE METABOLIC PANEL [ADDED]2022-02-14 00:00:00* Test Item Value Reference Range Interpretation Comme nts GLUCOSE (test code = 2217) 89 MG/DL BUN (test code = 2208) 13 MG/DL CREATININE (test code = 2214) 0.68 MG/DL eGFR (2020 CKD-EPI) (test co de = 98331) 95 ML/MIN/1.73 CALC BUN/CREAT (test code = 2235) 19 RATIO SODIUM (test code = 2231) 145 MEQ/L POTASSIUM (test code = 2228) 4.6 MEQ/L CHLORIDE (test code = 2215) 108 MEQ/L CARBON DIOXIDE (test code = 2206) 27 MEQ/L CALCIUM (test code = 2209) 9.4 MG/DL PROTEIN, TOTAL (test code = 2229) 7.1 G/DL ALBUMIN (test code = 2201) 4.0 G/DL CALC GLOBULIN (test code = 2240) 3.1 G/DL CALC A/G RATIO (test code = 2234) 1.3 RATIO BILIRUBIN, TOTAL (test code = 2207) 0.4 MG/DL ALKALINE PHOSPHATASE (test code = 2204) 43 U/L AST (test code = 2218) 20 U/L ALT (test code = 2219) 17 U/L William Annie JoniTSH + FREE T4 PROFILE [ADDED]2022-02-14 00:00:00* Test Item Value Reference Range Interpretation Comme nts TSH, THIRD GENERATION (test code = 2821) 2.970 UIU/ML FREE T4 (THYROXINE) (test co de = 2823) 1.12 NG/DL William QuinonesCBC W/AUTO DIFF WITH PLATELETS [ADDED]2022-02-14 00:00:00* Test Item Value Reference Range Interpretation Comme nts WBC (test code = 1001) 9.3 K/UL RBC (test code = 1002) 4.16 M/UL HEMOGLOBIN (test code = 1003) 13.2 G/DL HEMATOCRIT (test code = 1004) 38.1 % MCV (test code = 1005) 91.6 fL MCH (test code = 1006) 31.7 PG MCHC (test code = 1007) 34.6 G/DL RDW (test code = 1038) 14.6 % NEUTROPHILS (test code = 1008) 54.6 % LYMPHOCYTES (test code = 1010) 34.7 % MONOCYTES (test code = 1011) 7.5 % EOSINOPHILS (test code = 1012) 2.4 % BASOPHILS (test code = 1013) 0.5 % IMMATURE GRANULOCYTES (test code = 1036) 0.3 % NUCLEATED RBCS (test code = 1065) 0.0 /100WBC'S PLATELET COUNT (test code = 1015) 282 K/UL ABSOLUTE NEUTROPHILS (test c ode = 1066) 5.05 K/UL ABSOLUTE LYMPHOCYTES (test c ode = 1067) 3.21 K/UL ABSOLUTE MONOCYTES (test cod e = 1068) 0.69 K/UL ABSOLUTE EOSINOPHILS (test c ode = 1040) 0.22 K/UL ABSOLUTE BASOPHILS (test cod e = 1069) 0.05 K/UL ABS IMMATURE GRANULOCYTES (t est code = 1020) 0.03 K/UL ABS NUCLEATED RBCS (test cod e = 08579) 0.00 K/UL William QuinonesHEMOGLOBIN A1c [ADDED]2022-02-14 00:00:00* Test Item Value Reference Range Interpretation Comme nts HEMOGLOBIN A1c (test code = 84808) 5.9 % William QuinonesLIPID PANEL [ADDED]2022-02-14 00:00:00* Test Item Value Reference Range Interpretation Comme nts CHOLESTEROL (test code = 2210) 216 MG/DL TRIGLYCERIDES (test code = 2232) 98 MG/DL HDL CHOLESTEROL (test code = 2220) 63 MG/DL CALC LDL CHOL (test code = 2237) 133 MG/DL RISK RATIO LDL/HDL (test cod e = 2238) 2.11 RATIO William QuinonesCOMPREHENSIVE METABOLIC PANEL [ADDED]2022-02-14 00:00:00* Test Item Value Reference Range Interpretation Comme nts GLUCOSE (test code = 2217) 89 MG/DL BUN (test code = 2208) 13 MG/DL CREATININE (test code = 2214) 0.68 MG/DL eGFR (2020 CKD-EPI) (test co de = 90425) 95 ML/MIN/1.73 CALC BUN/CREAT (test code = 2235) 19 RATIO SODIUM (test code = 2231) 145 MEQ/L POTASSIUM (test code = 2228) 4.6 MEQ/L CHLORIDE (test code = 2215) 108 MEQ/L CARBON DIOXIDE (test code = 2206) 27 MEQ/L CALCIUM (test code = 2209) 9.4 MG/DL PROTEIN, TOTAL (test code = 2229) 7.1 G/DL ALBUMIN (test code = 2201) 4.0 G/DL CALC GLOBULIN (test code = 2240) 3.1 G/DL CALC A/G RATIO (test code = 2234) 1.3 RATIO BILIRUBIN, TOTAL (test code = 2207) 0.4 MG/DL ALKALINE PHOSPHATASE (test code = 2204) 43 U/L AST (test code = 2218) 20 U/L ALT (test code = 2219) 17 U/L William QuinonesTSH + FREE T4 PROFILE [ADDED]2022-02-14 00:00:00* Test Item Value Reference Range Interpretation Comme nts TSH, THIRD GENERATION (test code = 2821) 2.970 UIU/ML FREE T4 (THYROXINE) (test co de = 2823) 1.12 NG/DL William QuinonesCBC W/AUTO DIFF WITH PLATELETS [ADDED]2022-02-14 00:00:00* Test Item Value Reference Range Interpretation Comme nts WBC (test code = 1001) 9.3 K/UL RBC (test code = 1002) 4.16 M/UL HEMOGLOBIN (test code = 1003) 13.2 G/DL HEMATOCRIT (test code = 1004) 38.1 % MCV (test code = 1005) 91.6 fL MCH (test code = 1006) 31.7 PG MCHC (test code = 1007) 34.6 G/DL RDW (test code = 1038) 14.6 % NEUTROPHILS (test code = 1008) 54.6 % LYMPHOCYTES (test code = 1010) 34.7 % MONOCYTES (test code = 1011) 7.5 % EOSINOPHILS (test code = 1012) 2.4 % BASOPHILS (test code = 1013) 0.5 % IMMATURE GRANULOCYTES (test code = 1036) 0.3 % NUCLEATED RBCS (test code = 1065) 0.0 /100WBC'S PLATELET COUNT (test code = 1015) 282 K/UL ABSOLUTE NEUTROPHILS (test c ode = 1066) 5.05 K/UL ABSOLUTE LYMPHOCYTES (test c ode = 1067) 3.21 K/UL ABSOLUTE MONOCYTES (test cod e = 1068) 0.69 K/UL ABSOLUTE EOSINOPHILS (test c ode = 1040) 0.22 K/UL ABSOLUTE BASOPHILS (test cod e = 1069) 0.05 K/UL ABS IMMATURE GRANULOCYTES (t est code = 1020) 0.03 K/UL ABS NUCLEATED RBCS (test cod e = 73046) 0.00 K/UL William QuinonesHEMOGLOBIN A1c [ADDED]2022-02-14 00:00:00* Test Item Value Reference Range Interpretation Comme nts HEMOGLOBIN A1c (test code = 47190) 5.9 % William QuinonesLIPID PANEL [ADDED]2022-02-14 00:00:00* Test Item Value Reference Range Interpretation Comme nts CHOLESTEROL (test code = 2210) 216 MG/DL TRIGLYCERIDES (test code = 2232) 98 MG/DL HDL CHOLESTEROL (test code = 2220) 63 MG/DL CALC LDL CHOL (test code = 2237) 133 MG/DL RISK RATIO LDL/HDL (test cod e = 2238) 2.11 RATIO William QuinonesCOMPREHENSIVE METABOLIC PANEL [ADDED]2022-02-14 00:00:00* Test Item Value Reference Range Interpretation Comme nts GLUCOSE (test code = 2217) 89 MG/DL BUN (test code = 2208) 13 MG/DL CREATININE (test code = 2214) 0.68 MG/DL eGFR (2020 CKD-EPI) (test co de = 91519) 95 ML/MIN/1.73 CALC BUN/CREAT (test code = 2235) 19 RATIO SODIUM (test code = 2231) 145 MEQ/L POTASSIUM (test code = 2228) 4.6 MEQ/L CHLORIDE (test code = 2215) 108 MEQ/L CARBON DIOXIDE (test code = 2206) 27 MEQ/L CALCIUM (test code = 2209) 9.4 MG/DL PROTEIN, TOTAL (test code = 2229) 7.1 G/DL ALBUMIN (test code = 2201) 4.0 G/DL CALC GLOBULIN (test code = 2240) 3.1 G/DL CALC A/G RATIO (test code = 2234) 1.3 RATIO BILIRUBIN, TOTAL (test code = 2207) 0.4 MG/DL ALKALINE PHOSPHATASE (test code = 2204) 43 U/L AST (test code = 2218) 20 U/L ALT (test code = 2219) 17 U/L William QuinonesTSH + FREE T4 PROFILE [ADDED]2022-02-14 00:00:00* Test Item Value Reference Range Interpretation Comme nts TSH, THIRD GENERATION (test code = 2821) 2.970 UIU/ML FREE T4 (THYROXINE) (test co de = 2823) 1.12 NG/DL William QuinonesCBC W/AUTO DIFF WITH PLATELETS [ADDED]2022-02-14 00:00:00* Test Item Value Reference Range Interpretation Comme nts WBC (test code = 1001) 9.3 K/UL RBC (test code = 1002) 4.16 M/UL HEMOGLOBIN (test code = 1003) 13.2 G/DL HEMATOCRIT (test code = 1004) 38.1 % MCV (test code = 1005) 91.6 fL MCH (test code = 1006) 31.7 PG MCHC (test code = 1007) 34.6 G/DL RDW (test code = 1038) 14.6 % NEUTROPHILS (test code = 1008) 54.6 % LYMPHOCYTES (test code = 1010) 34.7 % MONOCYTES (test code = 1011) 7.5 % EOSINOPHILS (test code = 1012) 2.4 % BASOPHILS (test code = 1013) 0.5 % IMMATURE GRANULOCYTES (test code = 1036) 0.3 % NUCLEATED RBCS (test code = 1065) 0.0 /100WBC'S PLATELET COUNT (test code = 1015) 282 K/UL ABSOLUTE NEUTROPHILS (test c ode = 1066) 5.05 K/UL ABSOLUTE LYMPHOCYTES (test c ode = 1067) 3.21 K/UL ABSOLUTE MONOCYTES (test cod e = 1068) 0.69 K/UL ABSOLUTE EOSINOPHILS (test c ode = 1040) 0.22 K/UL ABSOLUTE BASOPHILS (test cod e = 1069) 0.05 K/UL ABS IMMATURE GRANULOCYTES (t est code = 1020) 0.03 K/UL ABS NUCLEATED RBCS (test cod e = 27699) 0.00 K/UL William QuinonesHEMOGLOBIN A1c [ADDED]2022-02-14 00:00:00* Test Item Value Reference Range Interpretation Comme nts HEMOGLOBIN A1c (test code = 11894) 5.9 % William QuinonesLIPID PANEL [ADDED]2022-02-14 00:00:00* Test Item Value Reference Range Interpretation Comme nts CHOLESTEROL (test code = 2210) 216 MG/DL TRIGLYCERIDES (test code = 2232) 98 MG/DL HDL CHOLESTEROL (test code = 2220) 63 MG/DL CALC LDL CHOL (test code = 2237) 133 MG/DL RISK RATIO LDL/HDL (test cod e = 2238) 2.11 RATIO William QuinonesCOMPREHENSIVE METABOLIC PANEL [ADDED]2022-02-14 00:00:00* Test Item Value Reference Range Interpretation Comme nts GLUCOSE (test code = 2217) 89 MG/DL BUN (test code = 2208) 13 MG/DL CREATININE (test code = 2214) 0.68 MG/DL eGFR (2020 CKD-EPI) (test co de = 08931) 95 ML/MIN/1.73 CALC BUN/CREAT (test code = 2235) 19 RATIO SODIUM (test code = 2231) 145 MEQ/L POTASSIUM (test code = 2228) 4.6 MEQ/L CHLORIDE (test code = 2215) 108 MEQ/L CARBON DIOXIDE (test code = 2206) 27 MEQ/L CALCIUM (test code = 2209) 9.4 MG/DL PROTEIN, TOTAL (test code = 2229) 7.1 G/DL ALBUMIN (test code = 2201) 4.0 G/DL CALC GLOBULIN (test code = 2240) 3.1 G/DL CALC A/G RATIO (test code = 2234) 1.3 RATIO BILIRUBIN, TOTAL (test code = 2207) 0.4 MG/DL ALKALINE PHOSPHATASE (test code = 2204) 43 U/L AST (test code = 2218) 20 U/L ALT (test code = 2219) 17 U/L William QuinonesTSH + FREE T4 PROFILE [ADDED]2022-02-14 00:00:00* Test Item Value Reference Range Interpretation Comme nts TSH, THIRD GENERATION (test code = 2821) 2.970 UIU/ML FREE T4 (THYROXINE) (test co de = 2823) 1.12 NG/DL William QuinonesCBC W/AUTO DIFF WITH PLATELETS [ADDED]2022-02-14 00:00:00* Test Item Value Reference Range Interpretation Comme nts WBC (test code = 1001) 9.3 K/UL RBC (test code = 1002) 4.16 M/UL HEMOGLOBIN (test code = 1003) 13.2 G/DL HEMATOCRIT (test code = 1004) 38.1 % MCV (test code = 1005) 91.6 fL MCH (test code = 1006) 31.7 PG MCHC (test code = 1007) 34.6 G/DL RDW (test code = 1038) 14.6 % NEUTROPHILS (test code = 1008) 54.6 % LYMPHOCYTES (test code = 1010) 34.7 % MONOCYTES (test code = 1011) 7.5 % EOSINOPHILS (test code = 1012) 2.4 % BASOPHILS (test code = 1013) 0.5 % IMMATURE GRANULOCYTES (test code = 1036) 0.3 % NUCLEATED RBCS (test code = 1065) 0.0 /100WBC'S PLATELET COUNT (test code = 1015) 282 K/UL ABSOLUTE NEUTROPHILS (test c ode = 1066) 5.05 K/UL ABSOLUTE LYMPHOCYTES (test c ode = 1067) 3.21 K/UL ABSOLUTE MONOCYTES (test cod e = 1068) 0.69 K/UL ABSOLUTE EOSINOPHILS (test c ode = 1040) 0.22 K/UL ABSOLUTE BASOPHILS (test cod e = 1069) 0.05 K/UL ABS IMMATURE GRANULOCYTES (t est code = 1020) 0.03 K/UL ABS NUCLEATED RBCS (test cod e = 34168) 0.00 K/UL William Annie JoniHEMOGLOBIN A1c [ADDED]2022-02-14 00:00:00* Test Item Value Reference Range Interpretation Comme nts HEMOGLOBIN A1c (test code = 83908) 5.9 % William Annie JoniLIPID PANEL [ADDED]2022-02-14 00:00:00* Test Item Value Reference Range Interpretation Comme nts CHOLESTEROL (test code = 2210) 216 MG/DL TRIGLYCERIDES (test code = 2232) 98 MG/DL HDL CHOLESTEROL (test code = 2220) 63 MG/DL CALC LDL CHOL (test code = 2237) 133 MG/DL RISK RATIO LDL/HDL (test cod e = 2238) 2.11 RATIO William QuinonesCOMPREHENSIVE METABOLIC PANEL [ADDED]2022-02-14 00:00:00* Test Item Value Reference Range Interpretation Comme nts GLUCOSE (test code = 2217) 89 MG/DL BUN (test code = 2208) 13 MG/DL CREATININE (test code = 2214) 0.68 MG/DL eGFR (2020 CKD-EPI) (test co de = 22833) 95 ML/MIN/1.73 CALC BUN/CREAT (test code = 2235) 19 RATIO SODIUM (test code = 223) 145 MEQ/L POTASSIUM (test code = 2228) 4.6 MEQ/L CHLORIDE (test code = 2215) 108 MEQ/L CARBON DIOXIDE (test code = 2206) 27 MEQ/L CALCIUM (test code = 2209) 9.4 MG/DL PROTEIN, TOTAL (test code = 222) 7.1 G/DL ALBUMIN (test code = 220) 4.0 G/DL CALC GLOBULIN (test code = 2240) 3.1 G/DL CALC A/G RATIO (test code = 2234) 1.3 RATIO BILIRUBIN, TOTAL (test code = 2206) 0.4 MG/DL ALKALINE PHOSPHATASE (test code = 2203) 43 U/L AST (test code = 2218) 20 U/L ALT (test code = 2219) 17 U/L William QuinonesTSH + FREE T4 PROFILE [ADDED]2022-02-14 00:00:00* Test Item Value Reference Range Interpretation Comme nts TSH, THIRD GENERATION (test code = 2821) 2.970 UIU/ML FREE T4 (THYROXINE) (test co de = 2823) 1.12 NG/DL William QuinonesCBC W/AUTO DIFF WITH PLATELETS [ADDED]2022-02-14 00:00:00* Test Item Value Reference Range Interpretation Comme nts WBC (test code = 1001) 9.3 K/UL RBC (test code = 1002) 4.16 M/UL HEMOGLOBIN (test code = 1003) 13.2 G/DL HEMATOCRIT (test code = 1004) 38.1 % MCV (test code = 1005) 91.6 fL MCH (test code = 1006) 31.7 PG MCHC (test code = 1007) 34.6 G/DL RDW (test code = 1038) 14.6 % NEUTROPHILS (test code = 1008) 54.6 % LYMPHOCYTES (test code = 1010) 34.7 % MONOCYTES (test code = 1011) 7.5 % EOSINOPHILS (test code = 1012) 2.4 % BASOPHILS (test code = 1013) 0.5 % IMMATURE GRANULOCYTES (test code = 1036) 0.3 % NUCLEATED RBCS (test code = 1065) 0.0 /100WBC'S PLATELET COUNT (test code = 1015) 282 K/UL ABSOLUTE NEUTROPHILS (test c ode = 1066) 5.05 K/UL ABSOLUTE LYMPHOCYTES (test c ode = 1067) 3.21 K/UL ABSOLUTE MONOCYTES (test cod e = 1068) 0.69 K/UL ABSOLUTE EOSINOPHILS (test c ode = 1040) 0.22 K/UL ABSOLUTE BASOPHILS (test cod e = 1069) 0.05 K/UL ABS IMMATURE GRANULOCYTES (t est code = 1020) 0.03 K/UL ABS NUCLEATED RBCS (test cod e = 96671) 0.00 K/UL William QuinonesHEMOGLOBIN A1c [ADDED]2022-02-14 00:00:00* Test Item Value Reference Range Interpretation Comme nts HEMOGLOBIN A1c (test code = 53085) 5.9 % William QuinonesLIPID PANEL [ADDED]2022-02-14 00:00:00* Test Item Value Reference Range Interpretation Comme nts CHOLESTEROL (test code = 2210) 216 MG/DL TRIGLYCERIDES (test code = 2232) 98 MG/DL HDL CHOLESTEROL (test code = 2220) 63 MG/DL CALC LDL CHOL (test code = 2237) 133 MG/DL RISK RATIO LDL/HDL (test cod e = 2238) 2.11 RATIO William Annie JoniCOMPREHENSIVE METABOLIC PANEL [ADDED]2022-02-14 00:00:00* Test Item Value Reference Range Interpretation Comme nts GLUCOSE (test code = 2217) 89 MG/DL BUN (test code = 2208) 13 MG/DL CREATININE (test code = 2214) 0.68 MG/DL eGFR (2020 CKD-EPI) (test co de = 42605) 95 ML/MIN/1.73 CALC BUN/CREAT (test code = 2235) 19 RATIO SODIUM (test code = 2231) 145 MEQ/L POTASSIUM (test code = 2228) 4.6 MEQ/L CHLORIDE (test code = 2215) 108 MEQ/L CARBON DIOXIDE (test code = 2206) 27 MEQ/L CALCIUM (test code = 2209) 9.4 MG/DL PROTEIN, TOTAL (test code = 2229) 7.1 G/DL ALBUMIN (test code = 2201) 4.0 G/DL CALC GLOBULIN (test code = 2240) 3.1 G/DL CALC A/G RATIO (test code = 2234) 1.3 RATIO BILIRUBIN, TOTAL (test code = 2207) 0.4 MG/DL ALKALINE PHOSPHATASE (test code = 2204) 43 U/L AST (test code = 2218) 20 U/L ALT (test code = 2219) 17 U/L William QuinonesTSH + FREE T4 PROFILE [ADDED]2022-02-14 00:00:00* Test Item Value Reference Range Interpretation Comme nts TSH, THIRD GENERATION (test code = 2821) 2.970 UIU/ML FREE T4 (THYROXINE) (test co de = 2823) 1.12 NG/DL William QuinonesCBC W/AUTO DIFF WITH PLATELETS [ADDED]2022-02-14 00:00:00* Test Item Value Reference Range Interpretation Comme nts WBC (test code = 1001) 9.3 K/UL RBC (test code = 1002) 4.16 M/UL HEMOGLOBIN (test code = 1003) 13.2 G/DL HEMATOCRIT (test code = 1004) 38.1 % MCV (test code = 1005) 91.6 fL MCH (test code = 1006) 31.7 PG MCHC (test code = 1007) 34.6 G/DL RDW (test code = 1038) 14.6 % NEUTROPHILS (test code = 1008) 54.6 % LYMPHOCYTES (test code = 1010) 34.7 % MONOCYTES (test code = 1011) 7.5 % EOSINOPHILS (test code = 1012) 2.4 % BASOPHILS (test code = 1013) 0.5 % IMMATURE GRANULOCYTES (test code = 1036) 0.3 % NUCLEATED RBCS (test code = 1065) 0.0 /100WBC'S PLATELET COUNT (test code = 1015) 282 K/UL ABSOLUTE NEUTROPHILS (test c ode = 1066) 5.05 K/UL ABSOLUTE LYMPHOCYTES (test c ode = 1067) 3.21 K/UL ABSOLUTE MONOCYTES (test cod e = 1068) 0.69 K/UL ABSOLUTE EOSINOPHILS (test c ode = 1040) 0.22 K/UL ABSOLUTE BASOPHILS (test cod e = 1069) 0.05 K/UL ABS IMMATURE GRANULOCYTES (t est code = 1020) 0.03 K/UL ABS NUCLEATED RBCS (test cod e = 16710) 0.00 K/UL William QuinonesHEMOGLOBIN A1c [ADDED]2022-02-14 00:00:00* Test Item Value Reference Range Interpretation Comme nts HEMOGLOBIN A1c (test code = 47921) 5.9 % William QuinonesLIPID PANEL [ADDED]2022-02-14 00:00:00* Test Item Value Reference Range Interpretation Comme nts CHOLESTEROL (test code = 2210) 216 MG/DL TRIGLYCERIDES (test code = 2232) 98 MG/DL HDL CHOLESTEROL (test code = 2220) 63 MG/DL CALC LDL CHOL (test code = 2237) 133 MG/DL RISK RATIO LDL/HDL (test cod e = 2238) 2.11 RATIO William QuinonesCOMPREHENSIVE METABOLIC PANEL [ADDED]2022-02-14 00:00:00* Test Item Value Reference Range Interpretation Comme nts GLUCOSE (test code = 2217) 89 MG/DL BUN (test code = 2208) 13 MG/DL CREATININE (test code = 2214) 0.68 MG/DL eGFR (2020 CKD-EPI) (test co de = 13944) 95 ML/MIN/1.73 CALC BUN/CREAT (test code = 2235) 19 RATIO SODIUM (test code = 2231) 145 MEQ/L POTASSIUM (test code = 2228) 4.6 MEQ/L CHLORIDE (test code = 2215) 108 MEQ/L CARBON DIOXIDE (test code = 2206) 27 MEQ/L CALCIUM (test code = 2209) 9.4 MG/DL PROTEIN, TOTAL (test code = 2229) 7.1 G/DL ALBUMIN (test code = 2201) 4.0 G/DL CALC GLOBULIN (test code = 2240) 3.1 G/DL CALC A/G RATIO (test code = 2234) 1.3 RATIO BILIRUBIN, TOTAL (test code = 2207) 0.4 MG/DL ALKALINE PHOSPHATASE (test code = 2204) 43 U/L AST (test code = 2218) 20 U/L ALT (test code = 2219) 17 U/L William QuinonesTSH + FREE T4 PROFILE [ADDED]2022-02-14 00:00:00* Test Item Value Reference Range Interpretation Comme nts TSH, THIRD GENERATION (test code = 2821) 2.970 UIU/ML FREE T4 (THYROXINE) (test co de = 2823) 1.12 NG/DL William Valencia JoniCBC W/AUTO DIFF WITH PLATELETS [ADDED]2022-02-14 00:00:00* Test Item Value Reference Range Interpretation Comme nts WBC (test code = 1001) 9.3 K/UL RBC (test code = 1002) 4.16 M/UL HEMOGLOBIN (test code = 1003) 13.2 G/DL HEMATOCRIT (test code = 1004) 38.1 % MCV (test code = 1005) 91.6 fL MCH (test code = 1006) 31.7 PG MCHC (test code = 1007) 34.6 G/DL RDW (test code = 1038) 14.6 % NEUTROPHILS (test code = 1008) 54.6 % LYMPHOCYTES (test code = 1010) 34.7 % MONOCYTES (test code = 1011) 7.5 % EOSINOPHILS (test code = 1012) 2.4 % BASOPHILS (test code = 1013) 0.5 % IMMATURE GRANULOCYTES (test code = 1036) 0.3 % NUCLEATED RBCS (test code = 1065) 0.0 /100WBC'S PLATELET COUNT (test code = 1015) 282 K/UL ABSOLUTE NEUTROPHILS (test c ode = 1066) 5.05 K/UL ABSOLUTE LYMPHOCYTES (test c ode = 1067) 3.21 K/UL ABSOLUTE MONOCYTES (test cod e = 1068) 0.69 K/UL ABSOLUTE EOSINOPHILS (test c ode = 1040) 0.22 K/UL ABSOLUTE BASOPHILS (test cod e = 1069) 0.05 K/UL ABS IMMATURE GRANULOCYTES (t est code = 1020) 0.03 K/UL ABS NUCLEATED RBCS (test cod e = 42052) 0.00 K/UL William Annie JoniHEMOGLOBIN A1c [ADDED]2022-02-14 00:00:00* Test Item Value Reference Range Interpretation Comme nts HEMOGLOBIN A1c (test code = 91588) 5.9 % William Annie JoniLIPID PANEL [ADDED]2022-02-14 00:00:00* Test Item Value Reference Range Interpretation Comme nts CHOLESTEROL (test code = 2210) 216 MG/DL TRIGLYCERIDES (test code = 2232) 98 MG/DL HDL CHOLESTEROL (test code = 2220) 63 MG/DL CALC LDL CHOL (test code = 2237) 133 MG/DL RISK RATIO LDL/HDL (test cod e = 2238) 2.11 RATIO William QuinonesCOMPREHENSIVE METABOLIC PANEL [ADDED]2022-02-14 00:00:00* Test Item Value Reference Range Interpretation Comme nts GLUCOSE (test code = 2217) 89 MG/DL BUN (test code = 2208) 13 MG/DL CREATININE (test code = 2214) 0.68 MG/DL eGFR (2020 CKD-EPI) (test co de = 63972) 95 ML/MIN/1.73 CALC BUN/CREAT (test code = 2235) 19 RATIO SODIUM (test code = 2231) 145 MEQ/L POTASSIUM (test code = 2228) 4.6 MEQ/L CHLORIDE (test code = 2215) 108 MEQ/L CARBON DIOXIDE (test code = 2206) 27 MEQ/L CALCIUM (test code = 2209) 9.4 MG/DL PROTEIN, TOTAL (test code = 2229) 7.1 G/DL ALBUMIN (test code = 2201) 4.0 G/DL CALC GLOBULIN (test code = 2240) 3.1 G/DL CALC A/G RATIO (test code = 2234) 1.3 RATIO BILIRUBIN, TOTAL (test code = 2207) 0.4 MG/DL ALKALINE PHOSPHATASE (test code = 2204) 43 U/L AST (test code = 2218) 20 U/L ALT (test code = 2219) 17 U/L William QuinonesTSH + FREE T4 PROFILE [ADDED]2022-02-14 00:00:00* Test Item Value Reference Range Interpretation Comme nts TSH, THIRD GENERATION (test code = 2821) 2.970 UIU/ML FREE T4 (THYROXINE) (test co de = 2823) 1.12 NG/DL William QuinonesCBC W/AUTO DIFF WITH PLATELETS [ADDED]2022-02-14 00:00:00* Test Item Value Reference Range Interpretation Comme nts WBC (test code = 1001) 9.3 K/UL RBC (test code = 1002) 4.16 M/UL HEMOGLOBIN (test code = 1003) 13.2 G/DL HEMATOCRIT (test code = 1004) 38.1 % MCV (test code = 1005) 91.6 fL MCH (test code = 1006) 31.7 PG MCHC (test code = 1007) 34.6 G/DL RDW (test code = 1038) 14.6 % NEUTROPHILS (test code = 1008) 54.6 % LYMPHOCYTES (test code = 1010) 34.7 % MONOCYTES (test code = 1011) 7.5 % EOSINOPHILS (test code = 1012) 2.4 % BASOPHILS (test code = 1013) 0.5 % IMMATURE GRANULOCYTES (test code = 1036) 0.3 % NUCLEATED RBCS (test code = 1065) 0.0 /100WBC'S PLATELET COUNT (test code = 1015) 282 K/UL ABSOLUTE NEUTROPHILS (test c ode = 1066) 5.05 K/UL ABSOLUTE LYMPHOCYTES (test c ode = 1067) 3.21 K/UL ABSOLUTE MONOCYTES (test cod e = 1068) 0.69 K/UL ABSOLUTE EOSINOPHILS (test c ode = 1040) 0.22 K/UL ABSOLUTE BASOPHILS (test cod e = 1069) 0.05 K/UL ABS IMMATURE GRANULOCYTES (t est code = 1020) 0.03 K/UL ABS NUCLEATED RBCS (test cod e = 68124) 0.00 K/UL William F South, [id number] 09:41:34SPECIMEN NUMBER: [id number] CULTURE, ANAEROBIC SPECIMEN NUMBER: [id number] SPECIMEN COMMENT: L ELBOW SOURCE: ELBOW REPORT STATUS: FINAL DIRECT GRAM STAIN: NO WBCs SEEN RARE GRAM POSITIVE COCCI FINAL REPORT: 01/26/2022 NO ANAEROBES RECOVERED AFTER 5 DAYS PRELIMINARY REPORT #2: 01/25/2022 NO ANAEROBES ISOLATED AT 4 DAYS PRELIMINARY ANAEROBE REPORT: 01/23/2022 NO ANAEROBES RECOVERED AFTER 48 HOURS ADDITIONAL OBSERVATIONS: 01/25/2022 POTENTIAL AEROBIC PATHOGEN RECOVERED.NO FURTHER WORKUP UNLESS REQUESTED. UNLESS OTHERWISE INDICATED, ALL TESTING PERFORMED ATCLINICAL PATHOLOGY [employer] [address] [place] [address] PRISM INSPECTOR: LEE CALLES M.D. CLIA NUMBER [id number] [place]. [id number] CULTURE, [id number] 00:00:00* Test Item Value Reference Range Interpretation Comme nts CULTURE, ANAEROBIC (test code = 16811) SPECIMEN NUMBER: [id number] William Dia [id number] 00:00:00* Test Item Value Reference Range Interpretation Comme nts CULTURE, ANAEROBIC (test code = 39190) SPECIMEN NUMBER: [id number] William Dia [id number] 00:00:00* Test Item Value Reference Range Interpretation Comme nts CULTURE, ANAEROBIC (test code = 80519) SPECIMEN NUMBER: [id number] CULTURE, [id number] 00:00:00* Test Item Value Reference Range Interpretation Comme nts CULTURE, ANAEROBIC (test code = 98198) SPECIMEN NUMBER: [id number] William Dia [id number] 00:00:00* Test Item Value Reference Range Interpretation Comme nts CULTURE, ANAEROBIC (test code = 68551) SPECIMEN NUMBER: [id number] William GormanLTCHANTAL [id number] 00:00:00* Test Item Value Reference Range Interpretation Comme nts CULTURE, ANAEROBIC (test code = 32315) SPECIMEN NUMBER: [id number] William Dia [id number] 00:00:00* Test Item Value Reference Range Interpretation Comme nts CULTURE, ANAEROBIC (test code = 20708) SPECIMEN NUMBER: [id number] William GormanLTCHANTAL [id number] 00:00:00* Test Item Value Reference Range Interpretation Comme nts CULTURE, ANAEROBIC (test code = 20975) SPECIMEN NUMBER: [id number] William GormanLTCHANTAL [id number] 00:00:00* Test Item Value Reference Range Interpretation Comme nts CULTURE, ANAEROBIC (test code = 66090) SPECIMEN NUMBER: [id number] William QuinonesHEMOGLOBIN [id number] 00:00:00* Test Item Value Reference Range Interpretation Comme nts HEMOGLOBIN A1c (test code = 83681) 6.0 % William Valencia AustinHEMOGLOBIN [id number] 00:00:00* Test Item Value Reference Range Interpretation Comme nts HEMOGLOBIN A1c (test code = 38352) 6.0 % William Valencia AustinHEMOGLOBIN [id number] 00:00:00* Test Item Value Reference Range Interpretation Comme nts HEMOGLOBIN A1c (test code = 97392) 6.0 % HEMOGLOBIN [id number] 00:00:00* Test Item Value Reference Range Interpretation Comme nts HEMOGLOBIN A1c (test code = 43908) 6.0 % William Valencia AustinHEMOGLOBIN [id number] 00:00:00* Test Item Value Reference Range Interpretation Comme nts HEMOGLOBIN A1c (test code = 18450) 6.0 % William Valencia AustinHEMOGLOBIN [id number] 00:00:00* Test Item Value Reference Range Interpretation Comme nts HEMOGLOBIN A1c (test code = 67082) 6.0 % William Valencia AustinHEMOGLOBIN [id number] 00:00:00* Test Item Value Reference Range Interpretation Comme nts HEMOGLOBIN A1c (test code = 89655) 6.0 % William Valencia AustinHEMOGLOBIN [id number] 00:00:00* Test Item Value Reference Range Interpretation Comme nts HEMOGLOBIN A1c (test code = 95809) 6.0 % William Valencia AustinHEMOGLOBIN [id number] 00:00:00* Test Item Value Reference Range Interpretation Comme nts HEMOGLOBIN A1c (test code = 79903) 6.0 % William QuinonesFREE T4 (THYROXINE)2021-06-01 00:00:00* Test Item Value Reference Range Interpretation Comme nts FREE T4 (THYROXINE) (test co de = 2823) 1.22 NG/DL William Valencia [id number] 00:00:00* Test Item Value Reference Range Interpretation Comme nts TSH, THIRD GENERATION (test code = 2821) 1.900 UIU/ML William QuinonesCBC W/AUTO [id number] 00:00:00* Test Item Value Reference Range Interpretation Comme nts WBC (test code = 1001) 7.1 K/UL RBC (test code = 1002) 4.35 M/UL HEMOGLOBIN (test code = 1003) 13.7 G/DL HEMATOCRIT (test code = 1004) 39.9 % MCV (test code = 1005) 91.7 fL MCH (test code = 1006) 31.5 PG MCHC (test code = 1007) 34.3 G/DL RDW (test code = 1038) 14.0 % NEUTROPHILS (test code = 1008) 41.9 % LYMPHOCYTES (test code = 1010) 41.7 % MONOCYTES (test code = 1011) 9.8 % EOSINOPHILS (test code = 1012) 5.2 % BASOPHILS (test code = 1013) 0.8 % IMMATURE GRANULOCYTES (test code = 1036) 0.6 % NUCLEATED RBCS (test code = 1065) 0.0 /100WBC'S PLATELET COUNT (test code = 1015) 276 K/UL ABSOLUTE NEUTROPHILS (test c ode = 1066) 2.98 K/UL ABSOLUTE LYMPHOCYTES (test c ode = 1067) 2.97 K/UL ABSOLUTE MONOCYTES (test cod e = 1068) 0.70 K/UL ABSOLUTE EOSINOPHILS (test c ode = 1040) 0.37 K/UL ABSOLUTE BASOPHILS (test cod e = 1069) 0.06 K/UL ABS IMMATURE GRANULOCYTES (t est code = 1020) 0.04 K/UL ABS NUCLEATED RBCS (test cod e = 30220) 0.00 K/UL COMMENTS (test code = 1016) (NOTE) William QuinonesFREE T4 (THYROXINE)2021-06-01 00:00:00* Test Item Value Reference Range Interpretation Comme nts FREE T4 (THYROXINE) (test co de = 2823) 1.22 NG/DL William QuinonesCBC W/AUTO [id number] 00:00:00* Test Item Value Reference Range Interpretation Comme nts WBC (test code = 1001) 7.1 K/UL RBC (test code = 1002) 4.35 M/UL HEMOGLOBIN (test code = 1003) 13.7 G/DL HEMATOCRIT (test code = 1004) 39.9 % MCV (test code = 1005) 91.7 fL MCH (test code = 1006) 31.5 PG MCHC (test code = 1007) 34.3 G/DL RDW (test code = 1038) 14.0 % NEUTROPHILS (test code = 1008) 41.9 % LYMPHOCYTES (test code = 1010) 41.7 % MONOCYTES (test code = 1011) 9.8 % EOSINOPHILS (test code = 1012) 5.2 % BASOPHILS (test code = 1013) 0.8 % IMMATURE GRANULOCYTES (test code = 1036) 0.6 % NUCLEATED RBCS (test code = 1065) 0.0 /100WBC'S PLATELET COUNT (test code = 1015) 276 K/UL ABSOLUTE NEUTROPHILS (test c ode = 1066) 2.98 K/UL ABSOLUTE LYMPHOCYTES (test c ode = 1067) 2.97 K/UL ABSOLUTE MONOCYTES (test cod e = 1068) 0.70 K/UL ABSOLUTE EOSINOPHILS (test c ode = 1040) 0.37 K/UL ABSOLUTE BASOPHILS (test cod e = 1069) 0.06 K/UL ABS IMMATURE GRANULOCYTES (t est code = 1020) 0.04 K/UL ABS NUCLEATED RBCS (test cod e = 16739) 0.00 K/UL COMMENTS (test code = 1016) (NOTE) [id number] 00:00:00* Test Item Value Reference Range Interpretation Comme nts TSH, THIRD GENERATION (test code = 2821) 1.900 UIU/ML William Valencia JoniCBC W/AUTO [id number] 00:00:00* Test Item Value Reference Range Interpretation Comme nts WBC (test code = 1001) 7.1 K/UL RBC (test code = 1002) 4.35 M/UL HEMOGLOBIN (test code = 1003) 13.7 G/DL HEMATOCRIT (test code = 1004) 39.9 % MCV (test code = 1005) 91.7 fL MCH (test code = 1006) 31.5 PG MCHC (test code = 1007) 34.3 G/DL RDW (test code = 1038) 14.0 % NEUTROPHILS (test code = 1008) 41.9 % LYMPHOCYTES (test code = 1010) 41.7 % MONOCYTES (test code = 1011) 9.8 % EOSINOPHILS (test code = 1012) 5.2 % BASOPHILS (test code = 1013) 0.8 % IMMATURE GRANULOCYTES (test code = 1036) 0.6 % NUCLEATED RBCS (test code = 1065) 0.0 /100WBC'S PLATELET COUNT (test code = 1015) 276 K/UL ABSOLUTE NEUTROPHILS (test c ode = 1066) 2.98 K/UL ABSOLUTE LYMPHOCYTES (test c ode = 1067) 2.97 K/UL ABSOLUTE MONOCYTES (test cod e = 1068) 0.70 K/UL ABSOLUTE EOSINOPHILS (test c ode = 1040) 0.37 K/UL ABSOLUTE BASOPHILS (test cod e = 1069) 0.06 K/UL ABS IMMATURE GRANULOCYTES (t est code = 1020) 0.04 K/UL ABS NUCLEATED RBCS (test cod e = [id number]) 0.00 K/UL COMMENTS (test code = 1016) (NOTE) William Valencia AustinFREE T4 (THYROXINE)2021-06-01 00:00:00* Test Item Value Reference Range Interpretation Comme nts FREE T4 (THYROXINE) (test co de = 2823) 1.22 NG/DL William Valencia AustinFREE T4 (THYROXINE)2021-06-01 00:00:00* Test Item Value Reference Range Interpretation Comme nts FREE T4 (THYROXINE) (test co de = 2823) 1.22 NG/DL [id number] 00:00:00* Test Item Value Reference Range Interpretation Comme nts TSH, THIRD GENERATION (test code = 2821) 1.900 UIU/ML William [id number] 00:00:00* Test Item Value Reference Range Interpretation Comme nts TSH, THIRD GENERATION (test code = 2821) 1.900 UIU/ML CBC W/AUTO [id number] 00:00:00* Test Item Value Reference Range Interpretation Comme nts WBC (test code = 1001) 7.1 K/UL RBC (test code = 1002) 4.35 M/UL HEMOGLOBIN (test code = 1003) 13.7 G/DL HEMATOCRIT (test code = 1004) 39.9 % MCV (test code = 1005) 91.7 fL MCH (test code = 1006) 31.5 PG MCHC (test code = 1007) 34.3 G/DL RDW (test code = 1038) 14.0 % NEUTROPHILS (test code = 1008) 41.9 % LYMPHOCYTES (test code = 1010) 41.7 % MONOCYTES (test code = 1011) 9.8 % EOSINOPHILS (test code = 1012) 5.2 % BASOPHILS (test code = 1013) 0.8 % IMMATURE GRANULOCYTES (test code = 1036) 0.6 % NUCLEATED RBCS (test code = 1065) 0.0 /100WBC'S PLATELET COUNT (test code = 1015) 276 K/UL ABSOLUTE NEUTROPHILS (test c ode = 1066) 2.98 K/UL ABSOLUTE LYMPHOCYTES (test c ode = 1067) 2.97 K/UL ABSOLUTE MONOCYTES (test cod e = 1068) 0.70 K/UL ABSOLUTE EOSINOPHILS (test c ode = 1040) 0.37 K/UL ABSOLUTE BASOPHILS (test cod e = 1069) 0.06 K/UL ABS IMMATURE GRANULOCYTES (t est code = 1020) 0.04 K/UL ABS NUCLEATED RBCS (test cod e = 08298) 0.00 K/UL COMMENTS (test code = 1016) (NOTE) William QuinonesFREE T4 (THYROXINE)2021-06-01 00:00:00* Test Item Value Reference Range Interpretation Comme nts FREE T4 (THYROXINE) (test co de = 2823) 1.22 NG/DL William [id number] 00:00:00* Test Item Value Reference Range Interpretation Comme nts TSH, THIRD GENERATION (test code = 2821) 1.900 UIU/ML William QuinonesCBC W/AUTO [id number] 00:00:00* Test Item Value Reference Range Interpretation Comme nts WBC (test code = 1001) 7.1 K/UL RBC (test code = 1002) 4.35 M/UL HEMOGLOBIN (test code = 1003) 13.7 G/DL HEMATOCRIT (test code = 1004) 39.9 % MCV (test code = 1005) 91.7 fL MCH (test code = 1006) 31.5 PG MCHC (test code = 1007) 34.3 G/DL RDW (test code = 1038) 14.0 % NEUTROPHILS (test code = 1008) 41.9 % LYMPHOCYTES (test code = 1010) 41.7 % MONOCYTES (test code = 1011) 9.8 % EOSINOPHILS (test code = 1012) 5.2 % BASOPHILS (test code = 1013) 0.8 % IMMATURE GRANULOCYTES (test code = 1036) 0.6 % NUCLEATED RBCS (test code = 1065) 0.0 /100WBC'S PLATELET COUNT (test code = 1015) 276 K/UL ABSOLUTE NEUTROPHILS (test c ode = 1066) 2.98 K/UL ABSOLUTE LYMPHOCYTES (test c ode = 1067) 2.97 K/UL ABSOLUTE MONOCYTES (test cod e = 1068) 0.70 K/UL ABSOLUTE EOSINOPHILS (test c ode = 1040) 0.37 K/UL ABSOLUTE BASOPHILS (test cod e = 1069) 0.06 K/UL ABS IMMATURE GRANULOCYTES (t est code = 1020) 0.04 K/UL ABS NUCLEATED RBCS (test cod e = 57941) 0.00 K/UL COMMENTS (test code = 1016) (NOTE) William QuinonesFREE T4 (THYROXINE)2021-06-01 00:00:00* Test Item Value Reference Range Interpretation Comme nts FREE T4 (THYROXINE) (test co de = 2823) 1.22 NG/DL William [id number] 00:00:00* Test Item Value Reference Range Interpretation Comme nts TSH, THIRD GENERATION (test code = 2821) 1.900 UIU/ML William QuinonesCBC W/AUTO [id number] 00:00:00* Test Item Value Reference Range Interpretation Comme nts WBC (test code = 1001) 7.1 K/UL RBC (test code = 1002) 4.35 M/UL HEMOGLOBIN (test code = 1003) 13.7 G/DL HEMATOCRIT (test code = 1004) 39.9 % MCV (test code = 1005) 91.7 fL MCH (test code = 1006) 31.5 PG MCHC (test code = 1007) 34.3 G/DL RDW (test code = 1038) 14.0 % NEUTROPHILS (test code = 1008) 41.9 % LYMPHOCYTES (test code = 1010) 41.7 % MONOCYTES (test code = 1011) 9.8 % EOSINOPHILS (test code = 1012) 5.2 % BASOPHILS (test code = 1013) 0.8 % IMMATURE GRANULOCYTES (test code = 1036) 0.6 % NUCLEATED RBCS (test code = 1065) 0.0 /100WBC'S PLATELET COUNT (test code = 1015) 276 K/UL ABSOLUTE NEUTROPHILS (test c ode = 1066) 2.98 K/UL ABSOLUTE LYMPHOCYTES (test c ode = 1067) 2.97 K/UL ABSOLUTE MONOCYTES (test cod e = 1068) 0.70 K/UL ABSOLUTE EOSINOPHILS (test c ode = 1040) 0.37 K/UL ABSOLUTE BASOPHILS (test cod e = 1069) 0.06 K/UL ABS IMMATURE GRANULOCYTES (t est code = 1020) 0.04 K/UL ABS NUCLEATED RBCS (test cod e = 09963) 0.00 K/UL COMMENTS (test code = 1016) (NOTE) William HallEE T4 (THYROXINE)2021-06-01 00:00:00* Test Item Value Reference Range Interpretation Comme nts FREE T4 (THYROXINE) (test co de = 2823) 1.22 NG/DL William [id number] 00:00:00* Test Item Value Reference Range Interpretation Comme nts TSH, THIRD GENERATION (test code = 2821) 1.900 UIU/ML William QuinonesCBC W/AUTO [id number] 00:00:00* Test Item Value Reference Range Interpretation Comme nts WBC (test code = 1001) 7.1 K/UL RBC (test code = 1002) 4.35 M/UL HEMOGLOBIN (test code = 1003) 13.7 G/DL HEMATOCRIT (test code = 1004) 39.9 % MCV (test code = 1005) 91.7 fL MCH (test code = 1006) 31.5 PG MCHC (test code = 1007) 34.3 G/DL RDW (test code = 1038) 14.0 % NEUTROPHILS (test code = 1008) 41.9 % LYMPHOCYTES (test code = 1010) 41.7 % MONOCYTES (test code = 1011) 9.8 % EOSINOPHILS (test code = 1012) 5.2 % BASOPHILS (test code = 1013) 0.8 % IMMATURE GRANULOCYTES (test code = 1036) 0.6 % NUCLEATED RBCS (test code = 1065) 0.0 /100WBC'S PLATELET COUNT (test code = 1015) 276 K/UL ABSOLUTE NEUTROPHILS (test c ode = 1066) 2.98 K/UL ABSOLUTE LYMPHOCYTES (test c ode = 1067) 2.97 K/UL ABSOLUTE MONOCYTES (test cod e = 1068) 0.70 K/UL ABSOLUTE EOSINOPHILS (test c ode = 1040) 0.37 K/UL ABSOLUTE BASOPHILS (test cod e = 1069) 0.06 K/UL ABS IMMATURE GRANULOCYTES (t est code = 1020) 0.04 K/UL ABS NUCLEATED RBCS (test cod e = 14763) 0.00 K/UL COMMENTS (test code = 1016) (NOTE) William QuinonesFREE T4 (THYROXINE)2021-06-01 00:00:00* Test Item Value Reference Range Interpretation Comme nts FREE T4 (THYROXINE) (test co de = 2823) 1.22 NG/DL William [id number] 00:00:00* Test Item Value Reference Range Interpretation Comme nts TSH, THIRD GENERATION (test code = 2821) 1.900 UIU/ML William QuinonesCBC W/AUTO [id number] 00:00:00* Test Item Value Reference Range Interpretation Comme nts WBC (test code = 1001) 7.1 K/UL RBC (test code = 1002) 4.35 M/UL HEMOGLOBIN (test code = 1003) 13.7 G/DL HEMATOCRIT (test code = 1004) 39.9 % MCV (test code = 1005) 91.7 fL MCH (test code = 1006) 31.5 PG MCHC (test code = 1007) 34.3 G/DL RDW (test code = 1038) 14.0 % NEUTROPHILS (test code = 1008) 41.9 % LYMPHOCYTES (test code = 1010) 41.7 % MONOCYTES (test code = 1011) 9.8 % EOSINOPHILS (test code = 1012) 5.2 % BASOPHILS (test code = 1013) 0.8 % IMMATURE GRANULOCYTES (test code = 1036) 0.6 % NUCLEATED RBCS (test code = 1065) 0.0 /100WBC'S PLATELET COUNT (test code = 1015) 276 K/UL ABSOLUTE NEUTROPHILS (test c ode = 1066) 2.98 K/UL ABSOLUTE LYMPHOCYTES (test c ode = 1067) 2.97 K/UL ABSOLUTE MONOCYTES (test cod e = 1068) 0.70 K/UL ABSOLUTE EOSINOPHILS (test c ode = 1040) 0.37 K/UL ABSOLUTE BASOPHILS (test cod e = 1069) 0.06 K/UL ABS IMMATURE GRANULOCYTES (t est code = 1020) 0.04 K/UL ABS NUCLEATED RBCS (test cod e = 94945) 0.00 K/UL COMMENTS (test code = 1016) (NOTE) William QuinonesFREE T4 (THYROXINE)2021-06-01 00:00:00* Test Item Value Reference Range Interpretation Comme nts FREE T4 (THYROXINE) (test co de = 2823) 1.22 NG/DL William [id number] 00:00:00* Test Item Value Reference Range Interpretation Comme nts TSH, THIRD GENERATION (test code = 2821) 1.900 UIU/ML William QuinonesCBC W/AUTO [id number] 00:00:00* Test Item Value Reference Range Interpretation Comme nts WBC (test code = 1001) 7.1 K/UL RBC (test code = 1002) 4.35 M/UL HEMOGLOBIN (test code = 1003) 13.7 G/DL HEMATOCRIT (test code = 1004) 39.9 % MCV (test code = 1005) 91.7 fL MCH (test code = 1006) 31.5 PG MCHC (test code = 1007) 34.3 G/DL RDW (test code = 1038) 14.0 % NEUTROPHILS (test code = 1008) 41.9 % LYMPHOCYTES (test code = 1010) 41.7 % MONOCYTES (test code = 1011) 9.8 % EOSINOPHILS (test code = 1012) 5.2 % BASOPHILS (test code = 1013) 0.8 % IMMATURE GRANULOCYTES (test code = 1036) 0.6 % NUCLEATED RBCS (test code = 1065) 0.0 /100WBC'S PLATELET COUNT (test code = 1015) 276 K/UL ABSOLUTE NEUTROPHILS (test c ode = 1066) 2.98 K/UL ABSOLUTE LYMPHOCYTES (test c ode = 1067) 2.97 K/UL ABSOLUTE MONOCYTES (test cod e = 1068) 0.70 K/UL ABSOLUTE EOSINOPHILS (test c ode = 1040) 0.37 K/UL ABSOLUTE BASOPHILS (test cod e = 1069) 0.06 K/UL ABS IMMATURE GRANULOCYTES (t est code = 1020) 0.04 K/UL ABS NUCLEATED RBCS (test cod e = 65043) 0.00 K/UL COMMENTS (test code = 1016) (NOTE) William QuinonesLIPID [id number] 00:00:00* Test Item Value Reference Range Interpretation Comme nts CHOLESTEROL (test code = 2210) 202 MG/DL TRIGLYCERIDES (test code = 2232) 91 MG/DL HDL CHOLESTEROL (test code = 2220) 69 MG/DL CALC LDL CHOL (test code = 2237) 114 MG/DL RISK RATIO LDL/HDL (test cod e = 2238) 1.65 RATIO William QuinonesLIVER (HEPATIC) FUNCTION [id number] 00:00:00* Test Item Value Reference Range Interpretation Comme nts PROTEIN, TOTAL (test code = 2229) 7.5 G/DL ALBUMIN (test code = 2201) 3.8 G/DL BILIRUBIN, TOTAL (test code = 2207) 0.5 MG/DL BILIRUBIN, DIRECT (test code = 2) 0.2 MG/DL ALKALINE PHOSPHATASE (test c ode = 2204) 63 U/L AST (test code = 2218) 17 U/L ALT (test code = 2219) 18 U/L William QuinonesTSH + FREE T4 [id number] 00:00:00* Test Item Value Reference Range Interpretation Comme leana TSH, THIRD GENERATION (test code = 2821) 1.610 UIU/ML FREE T4 (THYROXINE) (test co de = 2823) 1.22 NG/DL William QuinonesHEMOGLOBIN [id number] 00:00:00* Test Item Value Reference Range Interpretation Comme nts HEMOGLOBIN A1c (test code = 03821) 6.0 % William QuinonesLIPID [id number] 00:00:00* Test Item Value Reference Range Interpretation Comme nts CHOLESTEROL (test code = 2210) 202 MG/DL TRIGLYCERIDES (test code = 2232) 91 MG/DL HDL CHOLESTEROL (test code = 2220) 69 MG/DL CALC LDL CHOL (test code = 2237) 114 MG/DL RISK RATIO LDL/HDL (test cod e = 2238) 1.65 RATIO William QuinonesLIVER (HEPATIC) FUNCTION [id number] 00:00:00* Test Item Value Reference Range Interpretation Comme nts PROTEIN, TOTAL (test code = 2229) 7.5 G/DL ALBUMIN (test code = 2201) 3.8 G/DL BILIRUBIN, TOTAL (test code = 2207) 0.5 MG/DL BILIRUBIN, DIRECT (test code = 2022) 0.2 MG/DL ALKALINE PHOSPHATASE (test c ode = 2204) 63 U/L AST (test code = 2218) 17 U/L ALT (test code = 2219) 18 U/L William QuinonesHEMOGLOBIN [id number] 00:00:00* Test Item Value Reference Range Interpretation Comme nts HEMOGLOBIN A1c (test code = 20727) 6.0 % TSH + FREE T4 [id number] 00:00:00* Test Item Value Reference Range Interpretation Comme nts TSH, THIRD GENERATION (test code = 2821) 1.610 UIU/ML FREE T4 (THYROXINE) (test co de = 2823) 1.22 NG/DL William QuinonesHEMOGLOBIN [id number] 00:00:00* Test Item Value Reference Range Interpretation Comme nts HEMOGLOBIN A1c (test code = 75857) 6.0 % William Valencia AustinLIPID [id number] 00:00:00* Test Item Value Reference Range Interpretation Comme nts CHOLESTEROL (test code = 2210) 202 MG/DL TRIGLYCERIDES (test code = 2232) 91 MG/DL HDL CHOLESTEROL (test code = 2220) 69 MG/DL CALC LDL CHOL (test code = 2237) 114 MG/DL RISK RATIO LDL/HDL (test cod e = 2238) 1.65 RATIO William QuinonesLIPID [id number] 00:00:00* Test Item Value Reference Range Interpretation Comme nts CHOLESTEROL (test code = 2210) 202 MG/DL TRIGLYCERIDES (test code = 2232) 91 MG/DL HDL CHOLESTEROL (test code = 2220) 69 MG/DL CALC LDL CHOL (test code = 2237) 114 MG/DL RISK RATIO LDL/HDL (test cod e = 2238) 1.65 RATIO LIVER (HEPATIC) FUNCTION [id number] 00:00:00* Test Item Value Reference Range Interpretation Comme nts PROTEIN, TOTAL (test code = 2229) 7.5 G/DL ALBUMIN (test code = 2201) 3.8 G/DL BILIRUBIN, TOTAL (test code = 2207) 0.5 MG/DL BILIRUBIN, DIRECT (test code = 2021) 0.2 MG/DL ALKALINE PHOSPHATASE (test c ode = 2204) 63 U/L AST (test code = 2218) 17 U/L ALT (test code = 2219) 18 U/L LIVER (HEPATIC) FUNCTION [id number] 00:00:00* Test Item Value Reference Range Interpretation Comme nts PROTEIN, TOTAL (test code = 2229) 7.5 G/DL ALBUMIN (test code = 2201) 3.8 G/DL BILIRUBIN, TOTAL (test code = 2207) 0.5 MG/DL BILIRUBIN, DIRECT (test code = 2) 0.2 MG/DL ALKALINE PHOSPHATASE (test c ode = 2204) 63 U/L AST (test code = 2218) 17 U/L ALT (test code = 2219) 18 U/L William QuinonesTSH + FREE T4 [id number] 00:00:00* Test Item Value Reference Range Interpretation Comme nts TSH, THIRD GENERATION (test code = 2821) 1.610 UIU/ML FREE T4 (THYROXINE) (test co de = 2823) 1.22 NG/DL William QuinonesHEMOGLOBIN [id number] 00:00:00* Test Item Value Reference Range Interpretation Comme nts HEMOGLOBIN A1c (test code = 51833) 6.0 % William QuinonesTSH + FREE T4 [id number] 00:00:00* Test Item Value Reference Range Interpretation Comme nts TSH, THIRD GENERATION (test code = 2821) 1.610 UIU/ML FREE T4 (THYROXINE) (test co de = 2823) 1.22 NG/DL LIPID [id number] 00:00:00* Test Item Value Reference Range Interpretation Comme nts CHOLESTEROL (test code = 2210) 202 MG/DL TRIGLYCERIDES (test code = 2232) 91 MG/DL HDL CHOLESTEROL (test code = 2220) 69 MG/DL CALC LDL CHOL (test code = 2237) 114 MG/DL RISK RATIO LDL/HDL (test cod e = 2238) 1.65 RATIO William QuinonesLIVER (HEPATIC) FUNCTION [id number] 00:00:00* Test Item Value Reference Range Interpretation Comme nts PROTEIN, TOTAL (test code = 2229) 7.5 G/DL ALBUMIN (test code = 2201) 3.8 G/DL BILIRUBIN, TOTAL (test code = 2207) 0.5 MG/DL BILIRUBIN, DIRECT (test code = 2022) 0.2 MG/DL ALKALINE PHOSPHATASE (test c ode = 2204) 63 U/L AST (test code = 2218) 17 U/L ALT (test code = 2219) 18 U/L William QuinonesTSH + FREE T4 [id number] 00:00:00* Test Item Value Reference Range Interpretation Comme nts TSH, THIRD GENERATION (test code = 2821) 1.610 UIU/ML FREE T4 (THYROXINE) (test co de = 2823) 1.22 NG/DL William QuinonesHEMOGLOBIN [id number] 00:00:00* Test Item Value Reference Range Interpretation Comme nts HEMOGLOBIN A1c (test code = 98467) 6.0 % William QuinonesLIPID [id number] 00:00:00* Test Item Value Reference Range Interpretation Comme nts CHOLESTEROL (test code = 2210) 202 MG/DL TRIGLYCERIDES (test code = 2232) 91 MG/DL HDL CHOLESTEROL (test code = 2220) 69 MG/DL CALC LDL CHOL (test code = 2237) 114 MG/DL RISK RATIO LDL/HDL (test cod e = 2238) 1.65 RATIO William QuinonesLIVER (HEPATIC) FUNCTION [id number] 00:00:00* Test Item Value Reference Range Interpretation Comme nts PROTEIN, TOTAL (test code = 2229) 7.5 G/DL ALBUMIN (test code = 2201) 3.8 G/DL BILIRUBIN, TOTAL (test code = 2207) 0.5 MG/DL BILIRUBIN, DIRECT (test code = 2021) 0.2 MG/DL ALKALINE PHOSPHATASE (test c ode = 2204) 63 U/L AST (test code = 2218) 17 U/L ALT (test code = 2219) 18 U/L William QuinonesTSH + FREE T4 [id number] 00:00:00* Test Item Value Reference Range Interpretation Comme nts TSH, THIRD GENERATION (test code = 2821) 1.610 UIU/ML FREE T4 (THYROXINE) (test co de = 2823) 1.22 NG/DL William QuinonesHEMOGLOBIN [id number] 00:00:00* Test Item Value Reference Range Interpretation Comme nts HEMOGLOBIN A1c (test code = 07319) 6.0 % William QuinonesLIPID [id number] 00:00:00* Test Item Value Reference Range Interpretation Comme nts CHOLESTEROL (test code = 2210) 202 MG/DL TRIGLYCERIDES (test code = 2232) 91 MG/DL HDL CHOLESTEROL (test code = 2220) 69 MG/DL CALC LDL CHOL (test code = 2237) 114 MG/DL RISK RATIO LDL/HDL (test cod e = 2238) 1.65 RATIO William QuinonesLIVER (HEPATIC) FUNCTION [id number] 00:00:00* Test Item Value Reference Range Interpretation Comme nts PROTEIN, TOTAL (test code = 2229) 7.5 G/DL ALBUMIN (test code = 2201) 3.8 G/DL BILIRUBIN, TOTAL (test code = 2207) 0.5 MG/DL BILIRUBIN, DIRECT (test code = 2021) 0.2 MG/DL ALKALINE PHOSPHATASE (test c ode = 2204) 63 U/L AST (test code = 2218) 17 U/L ALT (test code = 2219) 18 U/L William QuinonesTSH + FREE T4 [id number] 00:00:00* Test Item Value Reference Range Interpretation Comme nts TSH, THIRD GENERATION (test code = 2821) 1.610 UIU/ML FREE T4 (THYROXINE) (test co de = 2823) 1.22 NG/DL William QuinonesHEMOGLOBIN [id number] 00:00:00* Test Item Value Reference Range Interpretation Comme nts HEMOGLOBIN A1c (test code = 54268) 6.0 % William QuinonesLIPID [id number] 00:00:00* Test Item Value Reference Range Interpretation Comme nts CHOLESTEROL (test code = 2210) 202 MG/DL TRIGLYCERIDES (test code = 2232) 91 MG/DL HDL CHOLESTEROL (test code = 2220) 69 MG/DL CALC LDL CHOL (test code = 2237) 114 MG/DL RISK RATIO LDL/HDL (test cod e = 2238) 1.65 RATIO William QuinonesLIVER (HEPATIC) FUNCTION [id number] 00:00:00* Test Item Value Reference Range Interpretation Comme nts PROTEIN, TOTAL (test code = 2229) 7.5 G/DL ALBUMIN (test code = 2201) 3.8 G/DL BILIRUBIN, TOTAL (test code = 2207) 0.5 MG/DL BILIRUBIN, DIRECT (test code = 2021) 0.2 MG/DL ALKALINE PHOSPHATASE (test c ode = 2204) 63 U/L AST (test code = 2218) 17 U/L ALT (test code = 2219) 18 U/L William QuinonesTSH + FREE T4 [id number] 00:00:00* Test Item Value Reference Range Interpretation Comme nts TSH, THIRD GENERATION (test code = 2821) 1.610 UIU/ML FREE T4 (THYROXINE) (test co de = 2823) 1.22 NG/DL William QuinonesHEMOGLOBIN [id number] 00:00:00* Test Item Value Reference Range Interpretation Comme nts HEMOGLOBIN A1c (test code = 61275) 6.0 % William QuinonesLIPID [id number] 00:00:00* Test Item Value Reference Range Interpretation Comme nts CHOLESTEROL (test code = 2210) 202 MG/DL TRIGLYCERIDES (test code = 2232) 91 MG/DL HDL CHOLESTEROL (test code = 2220) 69 MG/DL CALC LDL CHOL (test code = 2237) 114 MG/DL RISK RATIO LDL/HDL (test cod e = 2238) 1.65 RATIO William QuinonesLIVER (HEPATIC) FUNCTION [id number] 00:00:00* Test Item Value Reference Range Interpretation Comme nts PROTEIN, TOTAL (test code = 2229) 7.5 G/DL ALBUMIN (test code = 2201) 3.8 G/DL BILIRUBIN, TOTAL (test code = 2207) 0.5 MG/DL BILIRUBIN, DIRECT (test code = 2021) 0.2 MG/DL ALKALINE PHOSPHATASE (test c ode = 2204) 63 U/L AST (test code = 2218) 17 U/L ALT (test code = 2219) 18 U/L William QuinonesTSH + FREE T4 [id number] 00:00:00* Test Item Value Reference Range Interpretation Comme nts TSH, THIRD GENERATION (test code = 2821) 1.610 UIU/ML FREE T4 (THYROXINE) (test co de = 2823) 1.22 NG/DL William QuinonesHEMOGLOBIN [id number] 00:00:00* Test Item Value Reference Range Interpretation Comme nts HEMOGLOBIN A1c (test code = 13579) 6.0 % William QuinonesCULTURE, [id number] 00:00:00* Test Item Value Reference Range Interpretation Comme nts CULTURE, ROUTINE (test code = 53190) SPECIMEN NUMBER: [id number] William QuinonesCULTURE, [id number] 00:00:00* Test Item Value Reference Range Interpretation Comme nts CULTURE, ROUTINE (test code = 51660) SPECIMEN NUMBER: [id number] William QuinonesCULTURE, [id number] 00:00:00* Test Item Value Reference Range Interpretation Comme nts CULTURE, ROUTINE (test code = 31471) SPECIMEN NUMBER: [id number] CULTURE, [id number] 00:00:00* Test Item Value Reference Range Interpretation Comme nts CULTURE, ROUTINE (test code = 95418) SPECIMEN NUMBER: [id number] William QuinonesCULTURE, [id number] 00:00:00* Test Item Value Reference Range Interpretation Comme nts CULTURE, ROUTINE (test code = 49744) SPECIMEN NUMBER: [id number] William QuinonesCULTURE, [id number] 00:00:00* Test Item Value Reference Range Interpretation Comme nts CULTURE, ROUTINE (test code = 86680) SPECIMEN NUMBER: [id number] William QuinonesCULTURE, [id number] 00:00:00* Test Item Value Reference Range Interpretation Comme nts CULTURE, ROUTINE (test code = 81588) SPECIMEN NUMBER: [id number] Willima QuinonesCULTCHANTAL, [id number] 00:00:00* Test Item Value Reference Range Interpretation Comme nts CULTURE, ROUTINE (test code = 54501) SPECIMEN NUMBER: [id number] William QuinonesCULTURE, [id number] 00:00:00* Test Item Value Reference Range Interpretation Comme nts CULTURE, ROUTINE (test code = 63163) SPECIMEN NUMBER: [id number] William QuinonesHEMOGLOBIN [id number] 00:00:00* Test Item Value Reference Range Interpretation Comme leana HEMOGLOBIN A1c (test code = 76691) 6.5 % William QuinonesCOMPREHENSIVE METABOLIC [id number] 00:00:00* Test Item Value Reference Range Interpretation Comme nts GLUCOSE (test code = 2217) 113 MG/DL BUN (test code = 2208) 14 MG/DL CREATININE (test code = 2214) 0.58 MG/DL eGFR AMER. (test cod e = 77249) 111 ML/MIN/1.73 eGFR NON- AMER. (test code = 90652) 95 ML/MIN/1.73 CALC BUN/CREAT (test code = 2235) 24 RATIO SODIUM (test code = 2231) 146 MEQ/L POTASSIUM (test code = 2228) 3.9 MEQ/L CHLORIDE (test code = 2215) 108 MEQ/L CARBON DIOXIDE (test code = 2206) 27 MEQ/L CALCIUM (test code = 2209) 9.2 MG/DL PROTEIN, TOTAL (test code = 2229) 6.8 G/DL ALBUMIN (test code = 2201) 3.6 G/DL CALC GLOBULIN (test code = 2240) 3.2 G/DL CALC A/G RATIO (test code = 2234) 1.1 RATIO BILIRUBIN, TOTAL (test code = 2207) 0.3 MG/DL ALKALINE PHOSPHATASE (test code = 2204) 48 U/L AST (test code = 2218) 15 U/L ALT (test code = 2219) 11 U/L William [id number] 00:00:00* Test Item Value Reference Range Interpretation Comme nts TSH, THIRD GENERATION (test code = 2821) 2.190 UIU/ML William Valencia JoniFREE T4 (THYROXINE)[id number] 00:00:00* Test Item Value Reference Range Interpretation Comme nts FREE T4 (THYROXINE) (test co de = 2823) 1.14 NG/DL William QuinonesCBC W/AUTO [id number] 00:00:00* Test Item Value Reference Range Interpretation Comme nts WBC (test code = 1001) 8.0 K/UL RBC (test code = 1002) 4.07 M/UL HEMOGLOBIN (test code = 1003) 11.9 G/DL HEMATOCRIT (test code = 1004) 36.0 % MCV (test code = 1005) 88.5 fL MCH (test code = 1006) 29.2 PG MCHC (test code = 1007) 33.1 G/DL RDW (test code = 1038) 14.7 % NEUTROPHILS (test code = 1008) 49.4 % LYMPHOCYTES (test code = 1010) 34.1 % MONOCYTES (test code = 1011) 9.6 % EOSINOPHILS (test code = 1012) 6.3 % BASOPHILS (test code = 1013) 0.6 % PLATELET COUNT (test code = 1015) 270 K/UL William QuinonesHEMOGLOBIN [id number] 00:00:00* Test Item Value Reference Range Interpretation Comme nts HEMOGLOBIN A1c (test code = 90156) 6.5 % William QuinonesCOMPREHENSIVE METABOLIC [id number] 00:00:00* Test Item Value Reference Range Interpretation Comme nts GLUCOSE (test code = 2217) 113 MG/DL BUN (test code = 2208) 14 MG/DL CREATININE (test code = 2214) 0.58 MG/DL eGFR AMER. (test cod e = 83647) 111 ML/MIN/1.73 eGFR NON- AMER. (test code = 81226) 95 ML/MIN/1.73 CALC BUN/CREAT (test code = 2235) 24 RATIO SODIUM (test code = 2231) 146 MEQ/L POTASSIUM (test code = 2228) 3.9 MEQ/L CHLORIDE (test code = 2215) 108 MEQ/L CARBON DIOXIDE (test code = 2206) 27 MEQ/L CALCIUM (test code = 2209) 9.2 MG/DL PROTEIN, TOTAL (test code = 2229) 6.8 G/DL ALBUMIN (test code = 2201) 3.6 G/DL CALC GLOBULIN (test code = 2240) 3.2 G/DL CALC A/G RATIO (test code = 2234) 1.1 RATIO BILIRUBIN, TOTAL (test code = 2207) 0.3 MG/DL ALKALINE PHOSPHATASE (test code = 2204) 48 U/L AST (test code = 2218) 15 U/L ALT (test code = 2219) 11 U/L William [id number] 00:00:00* Test Item Value Reference Range Interpretation Comme nts TSH, THIRD GENERATION (test code = 2821) 2.190 UIU/ML William QuinonesCBC W/AUTO [id number] 00:00:00* Test Item Value Reference Range Interpretation Comme nts WBC (test code = 1001) 8.0 K/UL RBC (test code = 1002) 4.07 M/UL HEMOGLOBIN (test code = 1003) 11.9 G/DL HEMATOCRIT (test code = 1004) 36.0 % MCV (test code = 1005) 88.5 fL MCH (test code = 1006) 29.2 PG MCHC (test code = 1007) 33.1 G/DL RDW (test code = 1038) 14.7 % NEUTROPHILS (test code = 1008) 49.4 % LYMPHOCYTES (test code = 1010) 34.1 % MONOCYTES (test code = 1011) 9.6 % EOSINOPHILS (test code = 1012) 6.3 % BASOPHILS (test code = 1013) 0.6 % PLATELET COUNT (test code = 1015) 270 K/UL FREE T4 (THYROXINE)2020-06-14 00:00:00* Test Item Value Reference Range Interpretation Comme nts FREE T4 (THYROXINE) (test co de = 2823) 1.14 NG/DL William QuinonesCBC W/AUTO [id number] 00:00:00* Test Item Value Reference Range Interpretation Comme nts WBC (test code = 1001) 8.0 K/UL RBC (test code = 1002) 4.07 M/UL HEMOGLOBIN (test code = 1003) 11.9 G/DL HEMATOCRIT (test code = 1004) 36.0 % MCV (test code = 1005) 88.5 fL MCH (test code = 1006) 29.2 PG MCHC (test code = 1007) 33.1 G/DL RDW (test code = 1038) 14.7 % NEUTROPHILS (test code = 1008) 49.4 % LYMPHOCYTES (test code = 1010) 34.1 % MONOCYTES (test code = 1011) 9.6 % EOSINOPHILS (test code = 1012) 6.3 % BASOPHILS (test code = 1013) 0.6 % PLATELET COUNT (test code = 1015) 270 K/UL William QuinonesHEMOGLOBIN [id number] 00:00:00* Test Item Value Reference Range Interpretation Comme nts HEMOGLOBIN A1c (test code = 46995) 6.5 % HEMOGLOBIN [id number] 00:00:00* Test Item Value Reference Range Interpretation Comme nts HEMOGLOBIN A1c (test code = 54242) 6.5 % William QuinonesCOMPREHENSIVE METABOLIC [id number] 00:00:00* Test Item Value Reference Range Interpretation Comme nts GLUCOSE (test code = 2217) 113 MG/DL BUN (test code = 2208) 14 MG/DL CREATININE (test code = 2214) 0.58 MG/DL eGFR AMER. (test cod e = 66982) 111 ML/MIN/1.73 eGFR NON- AMER. (test code = 07595) 95 ML/MIN/1.73 CALC BUN/CREAT (test code = 2235) 24 RATIO SODIUM (test code = 2231) 146 MEQ/L POTASSIUM (test code = 2228) 3.9 MEQ/L CHLORIDE (test code = 2215) 108 MEQ/L CARBON DIOXIDE (test code = 2206) 27 MEQ/L CALCIUM (test code = 2209) 9.2 MG/DL PROTEIN, TOTAL (test code = 2229) 6.8 G/DL ALBUMIN (test code = 2201) 3.6 G/DL CALC GLOBULIN (test code = 2240) 3.2 G/DL CALC A/G RATIO (test code = 2234) 1.1 RATIO BILIRUBIN, TOTAL (test code = 2207) 0.3 MG/DL ALKALINE PHOSPHATASE (test code = 2204) 48 U/L AST (test code = 2218) 15 U/L ALT (test code = 2219) 11 U/L William [id number] 00:00:00* Test Item Value Reference Range Interpretation Comme nts TSH, THIRD GENERATION (test code = 2821) 2.190 UIU/ML William QuinonesCOMPREHENSIVE METABOLIC [id number] 00:00:00* Test Item Value Reference Range Interpretation Comme nts GLUCOSE (test code = 2217) 113 MG/DL BUN (test code = 2208) 14 MG/DL CREATININE (test code = 2214) 0.58 MG/DL eGFR AMER. (test cod e = 06032) 111 ML/MIN/1.73 eGFR NON- AMER. (test code = 84927) 95 ML/MIN/1.73 CALC BUN/CREAT (test code = 2235) 24 RATIO SODIUM (test code = 2231) 146 MEQ/L POTASSIUM (test code = 2228) 3.9 MEQ/L CHLORIDE (test code = 2215) 108 MEQ/L CARBON DIOXIDE (test code = 2206) 27 MEQ/L CALCIUM (test code = 2209) 9.2 MG/DL PROTEIN, TOTAL (test code = 2229) 6.8 G/DL ALBUMIN (test code = 2201) 3.6 G/DL CALC GLOBULIN (test code = 2240) 3.2 G/DL CALC A/G RATIO (test code = 2234) 1.1 RATIO BILIRUBIN, TOTAL (test code = 2207) 0.3 MG/DL ALKALINE PHOSPHATASE (test code = 2204) 48 U/L AST (test code = 2218) 15 U/L ALT (test code = 2219) 11 U/L FREE T4 (THYROXINE)2020-06-14 00:00:00* Test Item Value Reference Range Interpretation Comme nts FREE T4 (THYROXINE) (test co de = 2823) 1.14 NG/DL William [id number] 00:00:00* Test Item Value Reference Range Interpretation Comme nts TSH, THIRD GENERATION (test code = 2821) 2.190 UIU/ML CBC W/AUTO [id number] 00:00:00* Test Item Value Reference Range Interpretation Comme nts WBC (test code = 1001) 8.0 K/UL RBC (test code = 1002) 4.07 M/UL HEMOGLOBIN (test code = 1003) 11.9 G/DL HEMATOCRIT (test code = 1004) 36.0 % MCV (test code = 1005) 88.5 fL MCH (test code = 1006) 29.2 PG MCHC (test code = 1007) 33.1 G/DL RDW (test code = 1038) 14.7 % NEUTROPHILS (test code = 1008) 49.4 % LYMPHOCYTES (test code = 1010) 34.1 % MONOCYTES (test code = 1011) 9.6 % EOSINOPHILS (test code = 1012) 6.3 % BASOPHILS (test code = 1013) 0.6 % PLATELET COUNT (test code = 1015) 270 K/UL William QuinonesFREE T4 (THYROXINE)2020-06-14 00:00:00* Test Item Value Reference Range Interpretation Comme nts FREE T4 (THYROXINE) (test co de = 2823) 1.14 NG/DL HEMOGLOBIN [id number] 00:00:00* Test Item Value Reference Range Interpretation Comme nts HEMOGLOBIN A1c (test code = 17206) 6.5 % William QuinonesCOMPREHENSIVE METABOLIC [id number] 00:00:00* Test Item Value Reference Range Interpretation Comme nts GLUCOSE (test code = 2217) 113 MG/DL BUN (test code = 2208) 14 MG/DL CREATININE (test code = 2214) 0.58 MG/DL eGFR AMER. (test cod e = 97874) 111 ML/MIN/1.73 eGFR NON- AMER. (test code = 45585) 95 ML/MIN/1.73 CALC BUN/CREAT (test code = 2235) 24 RATIO SODIUM (test code = 2231) 146 MEQ/L POTASSIUM (test code = 2228) 3.9 MEQ/L CHLORIDE (test code = 2215) 108 MEQ/L CARBON DIOXIDE (test code = 2206) 27 MEQ/L CALCIUM (test code = 2209) 9.2 MG/DL PROTEIN, TOTAL (test code = 2229) 6.8 G/DL ALBUMIN (test code = 2201) 3.6 G/DL CALC GLOBULIN (test code = 2240) 3.2 G/DL CALC A/G RATIO (test code = 2234) 1.1 RATIO BILIRUBIN, TOTAL (test code = 2207) 0.3 MG/DL ALKALINE PHOSPHATASE (test code = 2204) 48 U/L AST (test code = 2218) 15 U/L ALT (test code = 2219) 11 U/L William [id number] 00:00:00* Test Item Value Reference Range Interpretation Comme nts TSH, THIRD GENERATION (test code = 2821) 2.190 UIU/ML [facility]FORM[facility]LY [facility] T4 ([facility]YROXINE)2020-06-14 00:00:00* Test Item Value Reference Range Interpretation Comme nts FREE T4 (THYROXINE) (test co de = 2823) 1.14 NG/DL William QuinonesCBC W/AUTO [id number] 00:00:00* Test Item Value Reference Range Interpretation Comme nts WBC (test code = 1001) 8.0 K/UL RBC (test code = 1002) 4.07 M/UL HEMOGLOBIN (test code = 1003) 11.9 G/DL HEMATOCRIT (test code = 1004) 36.0 % MCV (test code = 1005) 88.5 fL MCH (test code = 1006) 29.2 PG MCHC (test code = 1007) 33.1 G/DL RDW (test code = 1038) 14.7 % NEUTROPHILS (test code = 1008) 49.4 % LYMPHOCYTES (test code = 1010) 34.1 % MONOCYTES (test code = 1011) 9.6 % EOSINOPHILS (test code = 1012) 6.3 % BASOPHILS (test code = 1013) 0.6 % PLATELET COUNT (test code = 1015) 270 K/UL William QuinonesHEMOGLOBIN [id number] 00:00:00* Test Item Value Reference Range Interpretation Comme nts HEMOGLOBIN A1c (test code = 54244) 6.5 % William QuinonesCOMPREHENSIVE METABOLIC [id number] 00:00:00* Test Item Value Reference Range Interpretation Comme nts GLUCOSE (test code = 2217) 113 MG/DL BUN (test code = 2208) 14 MG/DL CREATININE (test code = 2214) 0.58 MG/DL eGFR AMER. (test cod e = 33285) 111 ML/MIN/1.73 eGFR NON- AMER. (test code = 53096) 95 ML/MIN/1.73 CALC BUN/CREAT (test code = 2235) 24 RATIO SODIUM (test code = 2231) 146 MEQ/L POTASSIUM (test code = 2228) 3.9 MEQ/L CHLORIDE (test code = 2215) 108 MEQ/L CARBON DIOXIDE (test code = 2206) 27 MEQ/L CALCIUM (test code = 2209) 9.2 MG/DL PROTEIN, TOTAL (test code = 2229) 6.8 G/DL ALBUMIN (test code = 2201) 3.6 G/DL CALC GLOBULIN (test code = 2240) 3.2 G/DL CALC A/G RATIO (test code = 2234) 1.1 RATIO BILIRUBIN, TOTAL (test code = 2207) 0.3 MG/DL ALKALINE PHOSPHATASE (test code = 2204) 48 U/L AST (test code = 2218) 15 U/L ALT (test code = 2219) 11 U/L William [id number] 00:00:00* Test Item Value Reference Range Interpretation Comme nts TSH, THIRD GENERATION (test code = 2821) 2.190 UIU/ML William QuinonesFREE T4 (THYROXINE)2020-06-14 00:00:00* Test Item Value Reference Range Interpretation Comme nts FREE T4 (THYROXINE) (test co de = 2823) 1.14 NG/DL William QuinonesCBC W/AUTO [id number] 00:00:00* Test Item Value Reference Range Interpretation Comme nts WBC (test code = 1001) 8.0 K/UL RBC (test code = 1002) 4.07 M/UL HEMOGLOBIN (test code = 1003) 11.9 G/DL HEMATOCRIT (test code = 1004) 36.0 % MCV (test code = 1005) 88.5 fL MCH (test code = 1006) 29.2 PG MCHC (test code = 1007) 33.1 G/DL RDW (test code = 1038) 14.7 % NEUTROPHILS (test code = 1008) 49.4 % LYMPHOCYTES (test code = 1010) 34.1 % MONOCYTES (test code = 1011) 9.6 % EOSINOPHILS (test code = 1012) 6.3 % BASOPHILS (test code = 1013) 0.6 % PLATELET COUNT (test code = 1015) 270 K/UL William QuinonesHEMOGLOBIN [id number] 00:00:00* Test Item Value Reference Range Interpretation Comme nts HEMOGLOBIN A1c (test code = 10466) 6.5 % William QuinonesCOMPREHENSIVE METABOLIC [id number] 00:00:00* Test Item Value Reference Range Interpretation Comme nts GLUCOSE (test code = 2217) 113 MG/DL BUN (test code = 2208) 14 MG/DL CREATININE (test code = 2214) 0.58 MG/DL eGFR AMER. (test cod e = 17323) 111 ML/MIN/1.73 eGFR NON- AMER. (test code = 98118) 95 ML/MIN/1.73 CALC BUN/CREAT (test code = 2235) 24 RATIO SODIUM (test code = 2231) 146 MEQ/L POTASSIUM (test code = 2228) 3.9 MEQ/L CHLORIDE (test code = 2215) 108 MEQ/L CARBON DIOXIDE (test code = 2206) 27 MEQ/L CALCIUM (test code = 2209) 9.2 MG/DL PROTEIN, TOTAL (test code = 2229) 6.8 G/DL ALBUMIN (test code = 2201) 3.6 G/DL CALC GLOBULIN (test code = 2240) 3.2 G/DL CALC A/G RATIO (test code = 2234) 1.1 RATIO BILIRUBIN, TOTAL (test code = 2207) 0.3 MG/DL ALKALINE PHOSPHATASE (test code = 2204) 48 U/L AST (test code = 2218) 15 U/L ALT (test code = 2219) 11 U/L William [id number] 00:00:00* Test Item Value Reference Range Interpretation Comme [facility] TSH, THIRD GENERATION (test code = 2821) 2.190 UIU/ML William QuinonesFRSHAI T4 (THYROXINE)2020-06-14 00:00:00* Test Item Value Reference Range Interpretation Comme [facility] FREE T4 (THYROXINE) (test co de = 2823) 1.14 NG/DL William QuinonesCBC W/AUTO [id number] 00:00:00* Test Item Value Reference Range Interpretation Comme nts WBC (test code = 1001) 8.0 K/UL RBC (test code = 1002) 4.07 M/UL HEMOGLOBIN (test code = 1003) 11.9 G/DL HEMATOCRIT (test code = 1004) 36.0 % MCV (test code = 1005) 88.5 fL MCH (test code = 1006) 29.2 PG MCHC (test code = 1007) 33.1 G/DL RDW (test code = 1038) 14.7 % NEUTROPHILS (test code = 1008) 49.4 % LYMPHOCYTES (test code = 1010) 34.1 % MONOCYTES (test code = 1011) 9.6 % EOSINOPHILS (test code = 1012) 6.3 % BASOPHILS (test code = 1013) 0.6 % PLATELET COUNT (test code = 1015) 270 K/UL William QuinonesHEMOGLOBIN [id number] 00:00:00* Test Item Value Reference Range Interpretation Comme [facility] HEMOGLOBIN A1c (test code = 22289) 6.5 % William QuinonesCOMPREHENSIVE METABOLIC [id number] 00:00:00* Test Item Value Reference Range Interpretation Comme nts GLUCOSE (test code = 2217) 113 MG/DL BUN (test code = 2208) 14 MG/DL CREATININE (test code = 2214) 0.58 MG/DL eGFR AMER. (test cod e = 94932) 111 ML/MIN/1.73 eGFR NON- AMER. (test code = 67693) 95 ML/MIN/1.73 CALC BUN/CREAT (test code = 2235) 24 RATIO SODIUM (test code = 2231) 146 MEQ/L POTASSIUM (test code = 2228) 3.9 MEQ/L CHLORIDE (test code = 2215) 108 MEQ/L CARBON DIOXIDE (test code = 2206) 27 MEQ/L CALCIUM (test code = 2209) 9.2 MG/DL PROTEIN, TOTAL (test code = 2229) 6.8 G/DL ALBUMIN (test code = 2201) 3.6 G/DL CALC GLOBULIN (test code = 2240) 3.2 G/DL CALC A/G RATIO (test code = 2234) 1.1 RATIO BILIRUBIN, TOTAL (test code = 2207) 0.3 MG/DL ALKALINE PHOSPHATASE (test code = 2204) 48 U/L AST (test code = 2218) 15 U/L ALT (test code = 2219) 11 U/L William [id number] 00:00:00* Test Item Value Reference Range Interpretation Comme [facility] TSH, THIRD GENERATION (test code = 2821) 2.190 UIU/ML William QuinonesFREE T4 (THYROXINE)2020-06-14 00:00:00* Test Item Value Reference Range Interpretation Comme [facility] FREE T4 (THYROXINE) (test co de = 2823) 1.14 NG/DL William QuinonesCBC W/AUTO [id number] 00:00:00* Test Item Value Reference Range Interpretation Comme nts WBC (test code = 1001) 8.0 K/UL RBC (test code = 1002) 4.07 M/UL HEMOGLOBIN (test code = 1003) 11.9 G/DL HEMATOCRIT (test code = 1004) 36.0 % MCV (test code = 1005) 88.5 fL MCH (test code = 1006) 29.2 PG MCHC (test code = 1007) 33.1 G/DL RDW (test code = 1038) 14.7 % NEUTROPHILS (test code = 1008) 49.4 % LYMPHOCYTES (test code = 1010) 34.1 % MONOCYTES (test code = 1011) 9.6 % EOSINOPHILS (test code = 1012) 6.3 % BASOPHILS (test code = 1013) 0.6 % PLATELET COUNT (test code = 1015) 270 K/UL William QuinonesHEMOGLOBIN [id number] 00:00:00* Test Item Value Reference Range Interpretation Comme nts HEMOGLOBIN A1c (test code = 93022) 6.5 % William QuinonesCOMPREHENSIVE METABOLIC [id number] 00:00:00* Test Item Value Reference Range Interpretation Comme nts GLUCOSE (test code = 2217) 113 MG/DL BUN (test code = 2208) 14 MG/DL CREATININE (test code = 2214) 0.58 MG/DL eGFR AMER. (test cod e = 00480) 111 ML/MIN/1.73 eGFR NON- AMER. (test code = 94688) 95 ML/MIN/1.73 CALC BUN/CREAT (test code = 2235) 24 RATIO SODIUM (test code = 2231) 146 MEQ/L POTASSIUM (test code = 2228) 3.9 MEQ/L CHLORIDE (test code = 2215) 108 MEQ/L CARBON DIOXIDE (test code = 2206) 27 MEQ/L CALCIUM (test code = 2209) 9.2 MG/DL PROTEIN, TOTAL (test code = 2229) 6.8 G/DL ALBUMIN (test code = 2201) 3.6 G/DL CALC GLOBULIN (test code = 2240) 3.2 G/DL CALC A/G RATIO (test code = 2234) 1.1 RATIO BILIRUBIN, TOTAL (test code = 2207) 0.3 MG/DL ALKALINE PHOSPHATASE (test code = 2204) 48 U/L AST (test code = 2218) 15 U/L ALT (test code = 2219) 11 U/L William [id number] 00:00:00* Test Item Value Reference Range Interpretation Comme nts TSH, THIRD GENERATION (test code = 2821) 2.190 UIU/ML William QuinonesFREE T4 (THYROXINE)2020-06-14 00:00:00* Test Item Value Reference Range Interpretation Comme nts FREE T4 (THYROXINE) (test co de = 2823) 1.14 NG/DL William QuinonesCBC W/AUTO [id number] 00:00:00* Test Item Value Reference Range Interpretation Comme nts WBC (test code = 1001) 8.0 K/UL RBC (test code = 1002) 4.07 M/UL HEMOGLOBIN (test code = 1003) 11.9 G/DL HEMATOCRIT (test code = 1004) 36.0 % MCV (test code = 1005) 88.5 fL MCH (test code = 1006) 29.2 PG MCHC (test code = 1007) 33.1 G/DL RDW (test code = 1038) 14.7 % NEUTROPHILS (test code = 1008) 49.4 % LYMPHOCYTES (test code = 1010) 34.1 % MONOCYTES (test code = 1011) 9.6 % EOSINOPHILS (test code = 1012) 6.3 % BASOPHILS (test code = 1013) 0.6 % PLATELET COUNT (test code = 1015) 270 K/UL William Valencia CatlinLIPID [id number] 00:00:00* Test Item Value Reference Range Interpretation Comme nts CHOLESTEROL (test code = 2210) 168 MG/DL TRIGLYCERIDES (test code = 2232) 115 MG/DL HDL CHOLESTEROL (test code = 2220) 56 MG/DL CALC LDL CHOL (test code = 2237) 91 MG/DL RISK RATIO LDL/HDL (test cod e = 2238) 1.63 RATIO William QuinonesCOMPREHENSIVE METABOLIC [id number] 00:00:00* Test Item Value Reference Range Interpretation Comme nts GLUCOSE (test code = 2217) 126 MG/DL BUN (test code = 2208) 12 MG/DL CREATININE (test code = 2214) 0.52 MG/DL eGFR AMER. (test cod e = 12912) 115 ML/MIN/1.73 eGFR NON- AMER. (test code = 28497) 99 ML/MIN/1.73 CALC BUN/CREAT (test code = 2235) 23 RATIO SODIUM (test code = 2231) 143 MEQ/L POTASSIUM (test code = 2228) 4.6 MEQ/L CHLORIDE (test code = 2215) 108 MEQ/L CARBON DIOXIDE (test code = 2206) 22 MEQ/L CALCIUM (test code = 2209) 9.5 MG/DL PROTEIN, TOTAL (test code = 2229) 7.1 G/DL ALBUMIN (test code = 2201) 4.0 G/DL CALC GLOBULIN (test code = 2240) 3.1 G/DL CALC A/G RATIO (test code = 2234) 1.3 RATIO BILIRUBIN, TOTAL (test code = 2207) 0.4 MG/DL ALKALINE PHOSPHATASE (test code = 2204) 51 U/L AST (test code = 2218) 18 U/L ALT (test code = 2219) 13 U/L William Valencia AustinLIPID [id number] 00:00:00* Test Item Value Reference Range Interpretation Comme nts CHOLESTEROL (test code = 2210) 168 MG/DL TRIGLYCERIDES (test code = 2232) 115 MG/DL HDL CHOLESTEROL (test code = 2220) 56 MG/DL CALC LDL CHOL (test code = 2237) 91 MG/DL RISK RATIO LDL/HDL (test cod e = 2238) 1.63 RATIO William QuinonesCOMPREHENSIVE METABOLIC [id number] 00:00:00* Test Item Value Reference Range Interpretation Comme nts GLUCOSE (test code = 2217) 126 MG/DL BUN (test code = 2208) 12 MG/DL CREATININE (test code = 2214) 0.52 MG/DL eGFR AMER. (test cod e = 56684) 115 ML/MIN/1.73 eGFR NON- AMER. (test code = 10251) 99 ML/MIN/1.73 CALC BUN/CREAT (test code = 2235) 23 RATIO SODIUM (test code = 2231) 143 MEQ/L POTASSIUM (test code = 2228) 4.6 MEQ/L CHLORIDE (test code = 2215) 108 MEQ/L CARBON DIOXIDE (test code = 2206) 22 MEQ/L CALCIUM (test code = 2209) 9.5 MG/DL PROTEIN, TOTAL (test code = 2229) 7.1 G/DL ALBUMIN (test code = 2201) 4.0 G/DL CALC GLOBULIN (test code = 2240) 3.1 G/DL CALC A/G RATIO (test code = 2234) 1.3 RATIO BILIRUBIN, TOTAL (test code = 2207) 0.4 MG/DL ALKALINE PHOSPHATASE (test code = 2204) 51 U/L AST (test code = 2218) 18 U/L ALT (test code = 2219) 13 U/L William QuinonesLIPID [id number] 00:00:00* Test Item Value Reference Range Interpretation Comme nts CHOLESTEROL (test code = 2210) 168 MG/DL TRIGLYCERIDES (test code = 2232) 115 MG/DL HDL CHOLESTEROL (test code = 2220) 56 MG/DL CALC LDL CHOL (test code = 2237) 91 MG/DL RISK RATIO LDL/HDL (test cod e = 2238) 1.63 RATIO LIPID [id number] 00:00:00* Test Item Value Reference Range Interpretation Comme nts CHOLESTEROL (test code = 2210) 168 MG/DL TRIGLYCERIDES (test code = 2232) 115 MG/DL HDL CHOLESTEROL (test code = 2220) 56 MG/DL CALC LDL CHOL (test code = 2237) 91 MG/DL RISK RATIO LDL/HDL (test cod e = 2238) 1.63 RATIO William QuinonesCOMPREHENSIVE METABOLIC [id number] 00:00:00* Test Item Value Reference Range Interpretation Comme nts GLUCOSE (test code = 2217) 126 MG/DL BUN (test code = 2208) 12 MG/DL CREATININE (test code = 2214) 0.52 MG/DL eGFR AMER. (test cod e = 18126) 115 ML/MIN/1.73 eGFR NON- AMER. (test code = 47341) 99 ML/MIN/1.73 CALC BUN/CREAT (test code = 2235) 23 RATIO SODIUM (test code = 2231) 143 MEQ/L POTASSIUM (test code = 2228) 4.6 MEQ/L CHLORIDE (test code = 2215) 108 MEQ/L CARBON DIOXIDE (test code = 2206) 22 MEQ/L CALCIUM (test code = 2209) 9.5 MG/DL PROTEIN, TOTAL (test code = 2229) 7.1 G/DL ALBUMIN (test code = 2201) 4.0 G/DL CALC GLOBULIN (test code = 2240) 3.1 G/DL CALC A/G RATIO (test code = 2234) 1.3 RATIO BILIRUBIN, TOTAL (test code = 2207) 0.4 MG/DL ALKALINE PHOSPHATASE (test code = 2204) 51 U/L AST (test code = 2218) 18 U/L ALT (test code = 2219) 13 U/L COMPREHENSIVE METABOLIC [id number] 00:00:00* Test Item Value Reference Range Interpretation Comme nts GLUCOSE (test code = 2217) 126 MG/DL BUN (test code = 2208) 12 MG/DL CREATININE (test code = 2214) 0.52 MG/DL eGFR AMER. (test cod e = 75666) 115 ML/MIN/1.73 eGFR NON- AMER. (test code = 65663) 99 ML/MIN/1.73 CALC BUN/CREAT (test code = 2235) 23 RATIO SODIUM (test code = 2231) 143 MEQ/L POTASSIUM (test code = 2228) 4.6 MEQ/L CHLORIDE (test code = 2215) 108 MEQ/L CARBON DIOXIDE (test code = 2206) 22 MEQ/L CALCIUM (test code = 2209) 9.5 MG/DL PROTEIN, TOTAL (test code = 2229) 7.1 G/DL ALBUMIN (test code = 2201) 4.0 G/DL CALC GLOBULIN (test code = 2240) 3.1 G/DL CALC A/G RATIO (test code = 2234) 1.3 RATIO BILIRUBIN, TOTAL (test code = 2207) 0.4 MG/DL ALKALINE PHOSPHATASE (test code = 2204) 51 U/L AST (test code = 2218) 18 U/L ALT (test code = 2219) 13 U/L William Valencia CatlinLIPID [id number] 00:00:00* Test Item Value Reference Range Interpretation Comme nts CHOLESTEROL (test code = 2210) 168 MG/DL TRIGLYCERIDES (test code = 2232) 115 MG/DL HDL CHOLESTEROL (test code = 2220) 56 MG/DL CALC LDL CHOL (test code = 2237) 91 MG/DL RISK RATIO LDL/HDL (test cod e = 2238) 1.63 RATIO William QuinonesCOMPREHENSIVE METABOLIC [id number] 00:00:00* Test Item Value Reference Range Interpretation Comme nts GLUCOSE (test code = 2217) 126 MG/DL BUN (test code = 2208) 12 MG/DL CREATININE (test code = 2214) 0.52 MG/DL eGFR AMER. (test cod e = 11026) 115 ML/MIN/1.73 eGFR NON- AMER. (test code = 45451) 99 ML/MIN/1.73 CALC BUN/CREAT (test code = 2235) 23 RATIO SODIUM (test code = 2231) 143 MEQ/L POTASSIUM (test code = 2228) 4.6 MEQ/L CHLORIDE (test code = 2215) 108 MEQ/L CARBON DIOXIDE (test code = 2206) 22 MEQ/L CALCIUM (test code = 2209) 9.5 MG/DL PROTEIN, TOTAL (test code = 2229) 7.1 G/DL ALBUMIN (test code = 2201) 4.0 G/DL CALC GLOBULIN (test code = 2240) 3.1 G/DL CALC A/G RATIO (test code = 2234) 1.3 RATIO BILIRUBIN, TOTAL (test code = 2207) 0.4 MG/DL ALKALINE PHOSPHATASE (test code = 2204) 51 U/L AST (test code = 2218) 18 U/L ALT (test code = 2219) 13 U/L William Valencia AustinLIPID [id number] 00:00:00* Test Item Value Reference Range Interpretation Comme nts CHOLESTEROL (test code = 2210) 168 MG/DL TRIGLYCERIDES (test code = 2232) 115 MG/DL HDL CHOLESTEROL (test code = 2220) 56 MG/DL CALC LDL CHOL (test code = 2237) 91 MG/DL RISK RATIO LDL/HDL (test cod e = 2238) 1.63 RATIO William QuinonesCOMPREHENSIVE METABOLIC [id number] 00:00:00* Test Item Value Reference Range Interpretation Comme nts GLUCOSE (test code = 2217) 126 MG/DL BUN (test code = 2208) 12 MG/DL CREATININE (test code = 2214) 0.52 MG/DL eGFR AMER. (test cod e = 80660) 115 ML/MIN/1.73 eGFR NON- AMER. (test code = 37180) 99 ML/MIN/1.73 CALC BUN/CREAT (test code = 2235) 23 RATIO SODIUM (test code = 2231) 143 MEQ/L POTASSIUM (test code = 2228) 4.6 MEQ/L CHLORIDE (test code = 2215) 108 MEQ/L CARBON DIOXIDE (test code = 2206) 22 MEQ/L CALCIUM (test code = 2209) 9.5 MG/DL PROTEIN, TOTAL (test code = 2229) 7.1 G/DL ALBUMIN (test code = 2201) 4.0 G/DL CALC GLOBULIN (test code = 2240) 3.1 G/DL CALC A/G RATIO (test code = 2234) 1.3 RATIO BILIRUBIN, TOTAL (test code = 2207) 0.4 MG/DL ALKALINE PHOSPHATASE (test code = 2204) 51 U/L AST (test code = 2218) 18 U/L ALT (test code = 2219) 13 U/L William Valencia AustinLIPID [id number] 00:00:00* Test Item Value Reference Range Interpretation Comme nts CHOLESTEROL (test code = 2210) 168 MG/DL TRIGLYCERIDES (test code = 2232) 115 MG/DL HDL CHOLESTEROL (test code = 2220) 56 MG/DL CALC LDL CHOL (test code = 2237) 91 MG/DL RISK RATIO LDL/HDL (test cod e = 2238) 1.63 RATIO William QuinonesCOMPREHENSIVE METABOLIC [id number] 00:00:00* Test Item Value Reference Range Interpretation Comme nts GLUCOSE (test code = 2217) 126 MG/DL BUN (test code = 2208) 12 MG/DL CREATININE (test code = 2214) 0.52 MG/DL eGFR AMER. (test cod e = 07490) 115 ML/MIN/1.73 eGFR NON- AMER. (test code = 97196) 99 ML/MIN/1.73 CALC BUN/CREAT (test code = 2235) 23 RATIO SODIUM (test code = 2231) 143 MEQ/L POTASSIUM (test code = 2228) 4.6 MEQ/L CHLORIDE (test code = 2215) 108 MEQ/L CARBON DIOXIDE (test code = 2206) 22 MEQ/L CALCIUM (test code = 2209) 9.5 MG/DL PROTEIN, TOTAL (test code = 2229) 7.1 G/DL ALBUMIN (test code = 2201) 4.0 G/DL CALC GLOBULIN (test code = 2240) 3.1 G/DL CALC A/G RATIO (test code = 2234) 1.3 RATIO BILIRUBIN, TOTAL (test code = 2207) 0.4 MG/DL ALKALINE PHOSPHATASE (test code = 2204) 51 U/L AST (test code = 2218) 18 U/L ALT (test code = 2219) 13 U/L William QuinonesLIPID [id number] 00:00:00* Test Item Value Reference Range Interpretation Comme nts CHOLESTEROL (test code = 2210) 168 MG/DL TRIGLYCERIDES (test code = 2232) 115 MG/DL HDL CHOLESTEROL (test code = 2220) 56 MG/DL CALC LDL CHOL (test code = 2237) 91 MG/DL RISK RATIO LDL/HDL (test cod e = 2238) 1.63 RATIO William Valencia AustinCOMPREHENSIVE METABOLIC [id number] 00:00:00* Test Item Value Reference Range Interpretation Comme nts GLUCOSE (test code = 2217) 126 MG/DL BUN (test code = 2208) 12 MG/DL CREATININE (test code = 2214) 0.52 MG/DL eGFR AMER. (test cod e = 64861) 115 ML/MIN/1.73 eGFR NON- AMER. (test code = 09987) 99 ML/MIN/1.73 CALC BUN/CREAT (test code = 2235) 23 RATIO SODIUM (test code = 2231) 143 MEQ/L POTASSIUM (test code = 2228) 4.6 MEQ/L CHLORIDE (test code = 2215) 108 MEQ/L CARBON DIOXIDE (test code = 2206) 22 MEQ/L CALCIUM (test code = 2209) 9.5 MG/DL PROTEIN, TOTAL (test code = 2229) 7.1 G/DL ALBUMIN (test code = 2201) 4.0 G/DL CALC GLOBULIN (test code = 2240) 3.1 G/DL CALC A/G RATIO (test code = 2234) 1.3 RATIO BILIRUBIN, TOTAL (test code = 2207) 0.4 MG/DL ALKALINE PHOSPHATASE (test code = 2204) 51 U/L AST (test code = 2218) 18 U/L ALT (test code = 2219) 13 U/L William Valencia AustinLIPID [id number] 00:00:00* Test Item Value Reference Range Interpretation Comme nts CHOLESTEROL (test code = 2210) 168 MG/DL TRIGLYCERIDES (test code = 2232) 115 MG/DL HDL CHOLESTEROL (test code = 2220) 56 MG/DL CALC LDL CHOL (test code = 2237) 91 MG/DL RISK RATIO LDL/HDL (test cod e = 2238) 1.63 RATIO William Valencia AustinCOMPREHENSIVE METABOLIC [id number] 00:00:00* Test Item Value Reference Range Interpretation Comme nts GLUCOSE (test code = 2217) 126 MG/DL BUN (test code = 2208) 12 MG/DL CREATININE (test code = 2214) 0.52 MG/DL eGFR AMER. (test cod e = 01499) 115 ML/MIN/1.73 eGFR NON- AMER. (test code = 83166) 99 ML/MIN/1.73 CALC BUN/CREAT (test code = 2235) 23 RATIO SODIUM (test code = 2231) 143 MEQ/L POTASSIUM (test code = 2228) 4.6 MEQ/L CHLORIDE (test code = 2215) 108 MEQ/L CARBON DIOXIDE (test code = 2206) 22 MEQ/L CALCIUM (test code = 2209) 9.5 MG/DL PROTEIN, TOTAL (test code = 2229) 7.1 G/DL ALBUMIN (test code = 2201) 4.0 G/DL CALC GLOBULIN (test code = 2240) 3.1 G/DL CALC A/G RATIO (test code = 2234) 1.3 RATIO BILIRUBIN, TOTAL (test code = 2207) 0.4 MG/DL ALKALINE PHOSPHATASE (test code = 2204) 51 U/L AST (test code = 2218) 18 U/L ALT (test code = 2219) 13 U/L William Annie VitaLTURE, AEROBIC [id number] 00:00:00* Test Item Value Reference Range Interpretation Comme nts CULTURE, AEROBIC BACTERIA (t est code = 634-6) SEE NOTE William Valencia JoniCULTURE, AEROBIC [id number] 00:00:00* Test Item Value Reference Range Interpretation Comme nts CULTURE, AEROBIC BACTERIA (t est code = 634-6) SEE NOTE William Valencia AustinCULTURE, AEROBIC [id number] 00:00:00* Test Item Value Reference Range Interpretation Comme nts CULTURE, AEROBIC BACTERIA (t est code = 634-6) SEE NOTE CULTURE, AEROBIC [id number] 00:00:00* Test Item Value Reference Range Interpretation Comme nts CULTURE, AEROBIC BACTERIA (t est code = 634-6) SEE NOTE William Valencia AustinCULTURE, AEROBIC [id number] 00:00:00* Test Item Value Reference Range Interpretation Comme nts CULTURE, AEROBIC BACTERIA (t est code = 634-6) SEE NOTE William Valencia AustinCULTURE, AEROBIC [id number] 00:00:00* Test Item Value Reference Range Interpretation Comme nts CULTURE, AEROBIC BACTERIA (t est code = 634-6) SEE NOTE William Valencia AustinCULTURE, AEROBIC [id number] 00:00:00* Test Item Value Reference Range Interpretation Comme nts CULTURE, AEROBIC BACTERIA (t est code = 634-6) SEE NOTE William QuinonesCULTURE, AEROBIC [id number] 00:00:00* Test Item Value Reference Range Interpretation Comme nts CULTURE, AEROBIC BACTERIA (t est code = 634-6) SEE NOTE William QuinonesCULTURE, AEROBIC [id number] 00:00:00* Test Item Value Reference Range Interpretation Comme nts CULTURE, AEROBIC BACTERIA (t est code = 634-6) SEE NOTE William Valencia AustinLIPID [id number] 00:00:00* Test Item Value Reference Range Interpretation Comme nts CHOLESTEROL (test code = 2210) 168 MG/DL TRIGLYCERIDES (test code = 2232) 155 MG/DL HDL CHOLESTEROL (test code = 2220) 53 MG/DL CALC LDL CHOL (test code = 2237) 90 MG/DL RISK RATIO LDL/HDL (test cod e = 2238) 1.70 RATIO William QuinonesTSH + FREE T4 [id number] 00:00:00* Test Item Value Reference Range Interpretation Comme nts TSH, THIRD GENERATION (test code = 2821) 4.840 UIU/ML FREE T4 (THYROXINE) (test co de = 2823) 1.07 NG/DL William Valencia AustinLIPID [id number] 00:00:00* Test Item Value Reference Range Interpretation Comme nts CHOLESTEROL (test code = 2210) 168 MG/DL TRIGLYCERIDES (test code = 2232) 155 MG/DL HDL CHOLESTEROL (test code = 2220) 53 MG/DL CALC LDL CHOL (test code = 2237) 90 MG/DL RISK RATIO LDL/HDL (test cod e = 2238) 1.70 RATIO William Valencia AustinTSH + FREE T4 [id number] 00:00:00* Test Item Value Reference Range Interpretation Comme nts TSH, THIRD GENERATION (test code = 2821) 4.840 UIU/ML FREE T4 (THYROXINE) (test co de = 2823) 1.07 NG/DL William Valencia AustinLIPID [id number] 00:00:00* Test Item Value Reference Range Interpretation Comme nts CHOLESTEROL (test code = 2210) 168 MG/DL TRIGLYCERIDES (test code = 2232) 155 MG/DL HDL CHOLESTEROL (test code = 2220) 53 MG/DL CALC LDL CHOL (test code = 2237) 90 MG/DL RISK RATIO LDL/HDL (test cod e = 2238) 1.70 RATIO William QuinonesTSH + FREE T4 [id number] 00:00:00* Test Item Value Reference Range Interpretation Comme nts TSH, THIRD GENERATION (test code = 2821) 4.840 UIU/ML FREE T4 (THYROXINE) (test co de = 2823) 1.07 NG/DL William Valencia AustinLIPID [id number] 00:00:00* Test Item Value Reference Range Interpretation Comme nts CHOLESTEROL (test code = 2210) 168 MG/DL TRIGLYCERIDES (test code = 2232) 155 MG/DL HDL CHOLESTEROL (test code = 2220) 53 MG/DL CALC LDL CHOL (test code = 2237) 90 MG/DL RISK RATIO LDL/HDL (test cod e = 2238) 1.70 RATIO William Valencia AustinTSH + FREE T4 [id number] 00:00:00* Test Item Value Reference Range Interpretation Comme nts TSH, THIRD GENERATION (test code = 2821) 4.840 UIU/ML FREE T4 (THYROXINE) (test co de = 2823) 1.07 NG/DL William Valencia AustinLIPID [id number] 00:00:00* Test Item Value Reference Range Interpretation Comme nts CHOLESTEROL (test code = 2210) 168 MG/DL TRIGLYCERIDES (test code = 2232) 155 MG/DL HDL CHOLESTEROL (test code = 2220) 53 MG/DL CALC LDL CHOL (test code = 2237) 90 MG/DL RISK RATIO LDL/HDL (test cod e = 2238) 1.70 RATIO William Valencia AustinTSH + FREE T4 [id number] 00:00:00* Test Item Value Reference Range Interpretation Comme nts TSH, THIRD GENERATION (test code = 2821) 4.840 UIU/ML FREE T4 (THYROXINE) (test co de = 2823) 1.07 NG/DL William Valencia AustinLIPID [id number] 00:00:00* Test Item Value Reference Range Interpretation Comme nts CHOLESTEROL (test code = 2210) 168 MG/DL TRIGLYCERIDES (test code = 2232) 155 MG/DL HDL CHOLESTEROL (test code = 2220) 53 MG/DL CALC LDL CHOL (test code = 2237) 90 MG/DL RISK RATIO LDL/HDL (test cod e = 2238) 1.70 RATIO William QuinonesTSH + FREE T4 [id number] 00:00:00* Test Item Value Reference Range Interpretation Comme nts TSH, THIRD GENERATION (test code = 2821) 4.840 UIU/ML FREE T4 (THYROXINE) (test co de = 2823) 1.07 NG/DL William QuinonesLIPID [id number] 00:00:00* Test Item Value Reference Range Interpretation Comme nts CHOLESTEROL (test code = 2210) 168 MG/DL TRIGLYCERIDES (test code = 2232) 155 MG/DL HDL CHOLESTEROL (test code = 2220) 53 MG/DL CALC LDL CHOL (test code = 2237) 90 MG/DL RISK RATIO LDL/HDL (test cod e = 2238) 1.70 RATIO William QuinonesTSH + FREE T4 [id number] 00:00:00* Test Item Value Reference Range Interpretation Comme nts TSH, THIRD GENERATION (test code = 2821) 4.840 UIU/ML FREE T4 (THYROXINE) (test co de = 2823) 1.07 NG/DL William QuinonesLIPID [id number] 00:00:00* Test Item Value Reference Range Interpretation Comme nts CHOLESTEROL (test code = 2210) 168 MG/DL TRIGLYCERIDES (test code = 2232) 155 MG/DL HDL CHOLESTEROL (test code = 2220) 53 MG/DL CALC LDL CHOL (test code = 2237) 90 MG/DL RISK RATIO LDL/HDL (test cod e = 2238) 1.70 RATIO William QuinonesTSH + FREE T4 [id number] 00:00:00* Test Item Value Reference Range Interpretation Comme nts TSH, THIRD GENERATION (test code = 2821) 4.840 UIU/ML FREE T4 (THYROXINE) (test co de = 2823) 1.07 NG/DL William Wayne, 2 [id number] 19:20:00 *.*.*.*.*.*.*.*.*.*.*.*.*.*FINAL*.*.*.*.*.*.*.*.*.*.*.*.*.*.*EXAM: KNEE, 2 VIEWS-LEFT SIDE HISTORY:? 62 yearsleft tka COMPARISON: January 28, 2017. FINDINGS: Radiographs of the left knee demonstrate changes of total knee arthroplasty withpatellar resurfacing. Significant soft tissue swelling along the anterior kneeand thigh is present. Dense vascular calcifications are noted. CLAUDIA HANNAH MD ?Personally interpreted by: JORGE SOTO MD /Signed/ JORGE SOTO MDUnWilson N. Jones Regional Medical CenterPROTEIN ELECTRO.,[id number] 08:09:00* Test Item Value Reference Range Interpretation Comme nts Albumin-LC (test code = 21028) 3.7 g/dL NotEstab. Vvymi-9-Onzgcw in-LC (test code = 69591) 0.3 g/dL NotEstab. Tzkpk-0-Aydpel in-LC (test code = 20078) 0.8 g/dL NotEstab. Beta Globulin-LC (test code = 28452) 1.5 g/dL NotEstab. Gamma Globulin-LC (test code = 57387) 1.8 g/dL NotEstab. M-Gaetano-LC (test code = 45135) Not Observed NotObserved g/dL Globulin, Total-LC (test code = 89811) 4.3 g/dL NotEstab. A/G Ratio-LC (test code = 00740) 0.9 NotEstab. Please note:-LC (test code = 24028) SPRCS Protein electrophoresis scan will follow via computer, mail, orcourier delivery. WILLY (test code = WILLY) PERFORMED BY [facility] ?[facility] [id number] ; [id number]; ; MD Sullivan ? [facility] HospitalG-6-PD, QUANT, BLOOD AND [id number] 08:09:00* Test Item Value Reference Range Interpretation Comme nts G-6-PD, QUANT-LC (test code = 12656) 289 146-376 When decreased, G-6-PD, Quant. values are associated with acutehemolytic anemia when deficient individuals are exposed to oxidativestress, such as with certain medications (e.g., primaquine),infection, or ingestion of ene beans.Caution: In patients with acute hemolysis (e.g., abnormally low RBCvalues), testing for G-6-PD may be falsely normal because oldererythrocytes with a higher enzyme deficiency have been hemolyzed.Young erythrocytes and reticulocytes have normal or near-normalenzyme activity. Normal values of G-6-PD may be measured for severalweeks following a hemolytic event. WILLY (test code = WILLY) PERFORMED BY [address] ?[facility] [id number] ; [id number]; ; MD Reilly Valencia ? [facility] [id number] 08:09:00* Test Item Value Reference Range Interpretation Comme nts Aldolase-LC (test code = 58828) 9.6 U/L NotEstab. WILLY (test code = WILLY) PERFORMED BY [address] [id number] ; [id number]; ; MD Reilly Valencia ? [facility] HospitalPROTEIN ELECTRO, RANDOM [id number] 08:09:00* Test Item Value Reference Range Interpretation Comme nts Protein,Total, Urine-LC (test code = 99181-0) 16.7 mg/dL NotEstab. Albumin, U-LC (test code = 21365) 57.5 % Cugmc-4-Kawvbc in, U-LC (test code = 29688) 6.9 % Iltus-0-Oywtxk in, U-LC (test code = 87969) 8.1 % Beta Globulin, U-LC (test code = 23961) 4.9 % Gamma Globulin, U-LC (test code = 36705) 22.5 % M-Gaetano, %-LC (test code = 66695) Not Observed NotObserved % Please note:-LC (test code = 03558) SPRCS Protein electrop horesis scan will follow via computer, mail, orcourier delivery. WILLY (test code = WILLY) PERFORMED BY [facility] [place] [address] ?[facility] [id number] ; [phone]; ; MD Sullivan ? [facility] HospitalTHIOPURINE [id number] 08:09:00* Test Item Value Reference Range Interpretation Comme nts TPMT Activity-L C (test code = 03525) 20.8 Units/mL RBC Reference Range: Normal: 15.1 - 26.4Heterozygous for low TPMT variant: 6.3 - 15.0Homozygous for low TPMT variant: <6.3 Interpreta tion:-LC (test code = 08726) SPRCS The above result s can be interpreted as Normal for redblood cell Thiopurine Methyltransferase activity. Forpatients having an intrinsic low level of TPMT, recent RBCtransfusion can variably increase their assayed enzymaticactivity depending on the amount and circulating half-lifeof the transfused red blood cells.This test was developed and its performance characteristicsdetermined by [employer]. It has not been cleared or approvedby the Food and Drug Administration.This case has been reviewed, approved, interpreted andelectronically signed by Selvin Patel, PhD. Methodolog y-LC (test code = 70366) SPRCS Enzymatic Endpoi nt/Liquid Chromatography - Tandem Mass Spectrometry(LC-MS/MS) WILLY (test code = WILLY) PERFORMED BY [employer] [facility] [place] [address] ?[facility] [id number] ; [id number]; ; MD Dilma Santoro ? [facility] HospitalCOMPLEMENT C3, [id number] 16:17:00* Test Item Value Reference Range Interpretation Comme nts COMPLEMENT C3, SERUM-LC (test code = 77096) 138 mg/dL 50-121 H WILLY (test code = WILLY) PERFORMED BY [employer] [address] ?[facility] [id number] ; [id number]; ; MD Robert Salinas ? Lab Interpretation (test code = 14948-3) Abnormal [facility] HospitalCOMPLEMENT C4, [id number] 16:17:00* Test Item Value Reference Range Interpretation Comme nts COMPLEMENT C4, SERUM-LC (test code = 03098) 29 mg/dL 14-28 H WILLY (test code = WILLY) PERFORMED BY [employer] [id number] ; [id number]; ; MD Robert Salinas ? Lab Interpretation (test code = 50339-0) Abnormal [facility] HospitalC-REACTIVE PROTEIN, [id number] 16:17:00* Test Item Value Reference Range Interpretation Comme nts C-Reactive Protein, Quant-LC (test code = 15690) 1.0 mg/L 0.0-4.9 WILLY (test code = WILLY) PERFORMED BY [facility]CoP[facility] HospitalIxlaihw[facility] ?[facility] [id number] ; [id number]; ; MD Robert Salinas ? [facility] HospitalCBC WITH DIFFERENTIAL/[id number] 15:17:00* Test Item Value Reference Range Interpretation Comme nts WBC-LC (test code = 13778) 13.9 3.6-12.5 H RBC-LC (test code = 17490) 4.55 3.68-5.77 Hemoglobin-LC (test code = 45246) 13.4 g/dL 10.7-20.5 Hematocrit-LC (test code = 41249) 40.5 % 31.9-57.2 MCV-LC (test code = 23902) 89 fL 79-110 MCH-LC (test code = 67786) 29.5 pg 26.1-38.7 MCHC-LC (test code = 52319) 33.1 g/dL 31.9-36.8 RDW-LC (test code = 36235) 16.2 % 12.1-16.9 Platelets-LC (test code = 13519) 309 140-396 Neutrophils-LC (test code = 12469) 75 % NotEstab. Lymphs-LC (test code = 54841) 17 % NotEstab. Monocytes-LC (test code = 21099) 8 % NotEstab. Eos-LC (test code = 35231) 0 % NotEstab. Basos-LC (test code = 11056) 0 % NotEstab. Neutrophils (Absolute)-LC (test code = 75541) 10.3 1.2-6.1 H Lymphs (Absolute)-LC (test code = 11354) 2.4 0.9-5.0 Monocytes(Absolute)-LC (test code = 44831) 1.1 0.2-1.3 Eos (Absolute)-LC (test code = 57977) 0.0 0.0-0.6 Baso (Absolute)-LC (test code = 56229) 0.0 0.0-0.6 Immature Granulocytes-LC (test code = 32066) 0 % NotEstab. Immature Grans (Abs)-LC (test code = 01501) 0.0 NotEstab. x10E3/uL Immature Cells-LC (test code = 97301) CANCELED Result cance led by the ancillary NRBC-LC (test code = 56430) CANCELED Result canceled by the ancillary Hematology Comments:-LC (test code = 11051) CANCELED Result canceled by the ancillary WILLY (test code = WILLY) PERFORMED BY Lab[address] ?[facility] [id number] ; [id number]; ; MD Robert Salinas ? Lab Interpretation (test code = 87661-9) Abnormal [facility] HospitalCOMP. METABOLIC PANEL ([id number] 15:17:00* Test Item Value Reference Range Interpretation Comme nts Glucose, Serum-LC (test code = 54263) 94 mg/dL 65-99 BUN-LC (test code = 09863) 16 mg/dL 3-18 Creatinine, Serum-LC (test code = 40951) 0.58 mg/dL 0.44-1.19 EGFR IF NONAFRICN AM-LC (test code = 23011) CANCELED mL/min/1.73 Unable to calculate GFR. ?Age and/or sex not provided or age <18 yearsold. Result canceled by the ancillary EGFR IF AFRICN AM-LC (test code = 88324) CANCELED mL/min/1.73 Unable to calculate GFR. ?Age and/or sex not provided or age <18 yearsold. Result canceled by the ancillary BUN/Creatinine Ratio-LC (test code = 63518) 28 9-26 H Sodium, Serum-LC (test code = 44940) 143 mmol/L 134-144 Potassium, Serum-LC (test code = 27191) 4.4 mmol/L 3.7-5.2 Chloride, Serum-LC (test code = 63810) 102 mmol/L 96-106 Carbon Dioxide, Total-LC (test code = 45082) 21 mmol/L 15-27 Calcium, Serum-LC (test code = 35196) 9.6 mg/dL 8.6-10.4 Protein, Total, Serum-LC (test code = 50044) 8.0 g/dL 4.6-7.2 H Albumin, Serum-LC (test code = 52853) 4.5 g/dL 3.4-4.2 H Globulin, Total-LC (test code = 30091) 3.5 g/dL 1.5-4.5 A/G Ratio-LC (test code = 50619) 1.3 1.1-2.3 Bilirubin, Total-LC (test code = 40711) 0.3 mg/dL ? Newborns, term and near term: ? 24 hours old: ? 0.0 - ?8.0 ? 48 hours old: ? 0.0 - 13.2 ? 72 hours old: ? 0.0 - 15.6 ? 96 hours to 1 month old: ? ?0.0 - 16.6 Alkaline Phosphatase, S-LC (test code = 12739) 46 45-111 AST (SGOT)-LC (test code = 31469) 22 0-120 ALT (SGPT)-LC (test code = 12788) 18 0-28 WILLY (test code = WILLY) PERFORMED BY [facility] ?[facility] [id number] ; [phone]; ; MD Robert Salinas ? Lab Interpretation (test code = 98879-2) Abnormal [facility] HospitalURINALYSIS, [id number] 15:17:00* Test Item Value Reference Range Interpretation Comme nts Specific [place]-LC (test code = 38610) 1.017 1.005-1.030 pH-LC (test code = 17073) 6.0 5.0-7.5 Wfkvp-Aejvx-WJ (test code = 84556) Yellow Yellow Appearance-LC (test code = 09441) Clear Clear WBC Esterase-LC (test code = 48750) Negative Negative Protein-LC (test code = 24854) Negative Negative/Trace Glucose-LC (test code = 96049) Negative Negative Ketones-LC (test code = 58042) Negative Negative Occult Blood-LC (test code = 5794-3) Negative Negative Bilirubin-LC (test code = 84715) Negative Negative Urobilinogen,Semi-Q n-LC (test code = 56751) 1.0 mg/dL 0.2-1.0 Nitrite, Urine-LC (test code = 77049) Negative Negative Microscopic Examination-LC (test code = 86639) MICNIP Microscopic not indicated and not performed. WILLY (test code = WILLY) PERFORMED BY [address] [id number] ; [id number]; ; MD Robert Salinas ? [facility] HospitalANTIEXTRACTABLE NUCLEAR [id number] 15:17:00* Test Item Value Reference Range Interpretation Comme nts 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 Antibodies-LC (test code = 34875) 2.0 0.0-0.9 H Ibarra Antibodies-LC (test code = 89032) <0.2 0.0-0.9 WILLY (test code = WILLY) PERFORMED BY [address] [id number] ; [id number]; ; MD Robert Salinas ? Lab Interpretation (test code = 76148-3) Abnormal [facility] HospitalSJOGREN'S AB, [id number]-[id number] 15:17:00* Test Item Value Reference Range Interpretation Comme nts Sjogren's Nvca-SB-Y-LC (test code = 85358) <0.2 0.0-0.9 Sjogren's Ebrs-ON-O-LC (test code = 23536) <0.2 0.0-0.9 WILLY (test code = WILLY) PERFORMED BY [address] [id number] ; [id number]; ; MD Robert Salinas ? [facility] HospitalANTI-DSDNA [id number] 15:17:00* Test Item Value Reference Range Interpretation Comme nts Anti-DNA (DS) Ab Qn-LC (test code = 04744) <1 0-9 ?Negative ? ? ?<5 ?Equivocal ?5 - 9 ?Positive ? ? ?>9 WILLY (test code = WILLY) PERFORMED BY [address] ?[facility] [id number] ; [id number]; ; MD Robert Salinas ? [facility] HospitalANTICHROMATIN [id number] 15:17:00 * Test Item Value Reference Range Interpretation Comme nts Antichromatin Antibodies-LC (test code = 09419) 0.7 0.0-0.9 WILLY (test code = WILLY) PERFORMED BY [address] ?[facility] [id number] ; [id number]; ; MD Robert Salinas ? [facility] HospitalANTI-CENTROMERE B [id number] 15:17:00* Test Item Value Reference Range Interpretation Comme nts Anti-Centromere B Antibodies-LC (test code = 08120) >8.0 0.0-0.9 H WILLY (test code = WILLY) PERFORMED BY [address] ?[facility] [id number] ; [phone]; ; MD Robert Salinas ? Lab Interpretation (test code = 24694-7) Abnormal [facility] HospitalCREATINE KINASE,TOTAL,[id number] 15:17:00* Test Item Value Reference Range Interpretation Comme nts Creatine Kinase,Total,Serum-LC (test code = 70793) 60 U/L 24-173 WILLY (test code = WILLY) PERFORMED BY [address] ?[facility] [id number] ; [id number]; ; MD Robert Salinas ? [facility] HospitalIMMUNOFIXATION, [id number] 08:10:00* Test Item Value Reference Range Interpretation Comme nts Immunofixation Result, Serum-LC (test code = 05409) IFENOR An apparent normal immunofixation pattern. Immunoglobulin G, Qn, Serum-LC (test code = 92602) 1589 mg/dL 700-1600 Immunoglobulin A, Qn, Serum-LC (test code = 08981) 593 mg/dL 87-352 H Immunoglobulin M, Qn, Serum-LC (test code = 93379) 243 mg/dL 26-217 H WILLY (test code = WILLY) PERFORMED BY [address] ?[facility] [id number] ; [id number]; ; MD Robert Salinas ? Lab Interpretation (test code = 12328-3) Abnormal [facility] HospitalQUANTIFERON TB GOLD (IN TUBE)-[id number] 08:10:00* Test Item Value Reference Range Interpretation Comme nts QUANTIFERON INCUBATION-LC (test code = 54763) EMILY Incubated, speci men [facility] [place], [place] forcompletion of the assay. WILLY (test code = WILLY) PERFORMED BY [address] ?[facility] [id number] ; [id number]; ; MD Robert Salinas ? [facility] HospitalCCP ANTIBODIES [id number] 08:10:00* Test Item Value Reference Range Interpretation Comme nts CCP Antibodies IgG/IgA-LC (test code = 94505) >250 0-19 H ? Negative ? <20 ? Weak positive ? ? ?20 - 39 ? Moderate positive ?40 - 59 ? Strong positive ?>59 WILLY (test code = WILLY) PERFORMED BY Lab[address] ?[facility] [id number] ; [id number]; ; MD Reilly Valencia ? Lab Interpretation (test code = 45756-1) Abnormal [facility] HospitalANTI-JO-1-[id number] 08:10:00* Test Item Value Reference Range Interpretation Comme nts Zzbm-Bg-9-LC (test code = 41639) <0.2 0.0-0.9 WILLY (test code = WILLY) PERFORMED BY [address] ?[facility] [id number] ; [id number]; ; MD Robert Salinas ? [facility] HospitalANTISCLERODERMA-70 OPDPCIUTKB-[id number] 08:10:00* Test Item Value Reference Range Interpretation Comme nts Antiscleroderma-70 Antibodies-LC (test code = 69429) <0.2 0.0-0.9 WILLY (test code = WILLY) PERFORMED BY [address] ?[facility] [id number] ; [id number]; ; MD Robert Salinas ? [facility] HospitalHEP B SURFACE [id number] 08:10:00* Test Item Value Reference Range Interpretation Comme nts HEP B SURFACE AB, QUAL-LC (test code = 58295) Non Reactive ? Non Reactive: Inconsistent with immunity, ? less than 10 mIU/mL ? Reactive: ? ? Consistent with immunity, ? greater than 9.9 mIU/mL WILLY (test code = WILLY) PERFORMED BY [address] ?[facility] [id number] ; [id number]; ; MD Robert Salinas ? [facility] HospitalPAN [id number] 08:10:00* Test Item Value Reference Range Interpretation Comme nts HIV SCREEN 4TH GENERATION WRFX-LC (test code = 25188) Non Reactive NonReactive WILLY (test code = WILLY) PERFORMED BY [address] ?[facility] [id number] ; [id number]; ; MD Robert Salinas ? [facility] HospitalRHEUMATOID ARTHRITIS [id number] 08:10:00* Test Item Value Reference Range Interpretation Comme nts RA Latex Turbid.-LC (test code = 84128) 204.0 0.0-13.9 H Results confirmed ondilution. WILLY (test code = WILLY) PERFORMED BY [facility] [id number] ; [id number]; ; MD Robert Salinas ? Lab Interpretation (test code = 74832-2) Abnormal [facility] HospitalCREATININE, [id number] 08:10:00* Test Item Value Reference Range Interpretation Comme nts Creatinine, Serum-LC (test code = 62065) 0.51 mg/dL 0.57-1.00 L EGFR IF NONAFRICN AM-LC (test code = 26748) 103 mL/min/1.73 >=59 EGFR IF AFRICN AM-LC (test code = 85301) 118 mL/min/1.73 >=59 WILLY (test code = WILLY) PERFORMED BY [address] [id number] ; [id number]; ; MD Robert Salinas ? Lab Interpretation (test code = 21542-0) Abnormal [facility] HospitalSEDIMENTATION [id number] 08:10:00* Test Item Value Reference Range Interpretation Comme nts Sedimentation Ywsj-Qsihszftgs-QR (test code = 68830) 50 0-40 H WILLY (test code = WILLY) PERFORMED BY [address] [id number] ; [id number]; ; MD Robert Salinas ? Lab Interpretation (test code = 91154-9) Abnormal [facility] HospitalC-REACTIVE PROTEIN, [id number] 08:10:00* Test Item Value Reference Range Interpretation Comme nts C-Reactive Protein, Quant-LC (test code = 78478) 18.5 mg/L 0.0-4.9 H WILLY (test code = WILLY) PERFORMED BY [address] [id number] ; [id number]; ; MD Robert Salinas ? Lab Interpretation (test code = 27693-5) Abnormal [facility] HospitalHBSAG [id number] 08:10:00* Test Item Value Reference Range Interpretation Comme nts HBsAg Screen-LC (test code = 10501) Negative Negative WILLY (test code = WILLY) PERFORMED BY [facility] ?[facility] [id number] ; [id number]; ; MD Robert Salinas ? [facility] HospitalONE SPECIMEN [id number] 08:10:00 * Test Item Value Reference Range Interpretation Comme nts ONE SPECIMEN IDENTIFIER-LC (test code = 23790) SPRCS The specimen received included only one patient identifier on theprimary collection container. ?Our laboratory accrediting agencystates "All primary specimen containers must be labeled with 2identifiers at the time of collection." WILLY (test code = WILLY) PERFORMED BY [address] ?[facility] [id number] ; [id number]; ; MD Robert Salinas ? [facility] HospitalHCV AB W/RFLX TO [id number] 08:10:00* Test Item Value Reference Range Interpretation Comme nts HCV AB-LC (test code = 73224) 0.1 0.0-0.9 WILLY (test code = WILLY) PERFORMED BY [address] ?[facility] [id number] ; [phone]; ; MD Robert Salinas ? [facility] HospitalCOMMENT:-[id number] 08:10:00* Test Item Value Reference Range Interpretation Comme nts COMMENT:-LC (test code = 56392) SPRCS Non reactive HCV antibody screen is consistent with no HCV infection,unless recent infection is suspected or other evidence exists toindicate HCV infection. WILLY (test code = WILLY) PERFORMED BY [address] ?[facility] [id number] ; [phone]; ; MD Robert Salinas ? [facility] HospitalQUANTIFERON IN [id number] 08:10:00* Test Item Value Reference Range Interpretation Comments QUANTIFERON TB GOLD-LC (test code = 76406) Negative Negative QUANTIFERON CRITERIA-LC (test code = 01538) SPRCS To be considered positive a specimen should have a TB Ag minus Nilvalue greater than or equal to 0.35 IU/mL and in addition the TB Agminus Nil value must be greater than or equal to 25% of the Nilvalue. There may be insufficient information in these values todifferentiate between some negative and some indeterminate testvalues. QUANTIFERON TB AG VALUE-LC (test code = 58772) 0.31 IU/mL QUANTIFERON NIL VALUE-LC (test code = 33128) 0.17 IU/mL QUANTIFERON MITOGEN VALUE-LC (test code = 01403) 6.83 IU/mL QFT TB AG MINUS NIL VALUE-LC (test code = 38081) 0.14 IU/mL INTERPRETATION:-L C (test code = 35716) SPRCS The QuantiFERON TB Gold (in Tube) assay is intended for use as an aidin the diagnosis of TB infection. Negative results suggest that thereis no TB infection. In patients with high suspicion of exposure, anegative test should be repeated. A positive test indicates infectionwith Mycobacterium tuberculosis. Among individuals withouttuberculosis infection, a positive test may be due to exposure Eliazar. kansasii, M. szulgai or M. marinum. On the Internet, go tocdc.gov/tb for further details. WILLY (test code = WILLY) PERFORMED BY [employer] ?[facility] [id number] ; [phone]; ; MD Reilly Valencia ? [facility] HospitalABO GROUPING AND RHO(D) [id number] 20:25:00* Test Item Value Reference Range Interpretation Comme nts ABO Grouping-LC (test code = 83309) A Rh Factor-LC (test code = 00467) Positive Please note: Julissa or records for this patient's ABO / Rh type are notavailable for additional verification. WILLY (test code = WILLY) PERFORMED BY [employer] ?[facility] [id number] ; [phone]; ; MD Robert Salinas ? [facility] HospitalWRITTEN [id number] 20:25:00* Test Item Value Reference Range Interpretation Comme nts Written Authorization-LC (test code = 95260) WAR Written Authoriz ation Received.Authorizatio n received from [facility] ORDER [id number] by Blanca Reyes WILLY (test code = WILLY) PERFORMED BY [facility] ?[facility] [id number] ; [phone]; ; MD Robert Salinas ? [facility], 3 VIEWS AND [id number] 17:55:00 *.*.*.*.*.*.*.*.*.*.*.*.*.*FINAL*.*.*.*.*.*.*.*.*.*.*.*.*.*.*EXAM: KNEE, 3 VIEWS-LEFT SIDE, EXAM: FOOT, COMPLETE MIN. 3 VIEWS-LEFT SIDE, EXAM: FOOT, COMPLETE MIN. 3 VIEWS-RIGHT SIDE, EXAM: HAND, 3 VIEWS AND MORE-LEFT SIDE, EXAM: HAND, 3 VIEWS AND MORE-RIGHT SIDE, EXAM: KNEE, 3 VIEWS-RIGHT SIDE HISTORY: please evaluate for any inflammatory or degenerative changes, thanks COMPARISON: None FINDINGS:Imaging of the left and right knee demonstrates diffuse osteopenia withposterior vascular calcifications. Moderate to severe bilateral patellofemoraland medial joint space narrowing, marginal osteophyte formation and subchondralsclerosis are seen. Subcortical cyst formation is seen at these sites.Degenerative tibial spine hypertrophy is present. Small bilateral jointeffusions are present. Images of the left and right foot demonstrates calcaneal enthesophyte formation.Mild diffuse soft tissue swelling is seen. Dystrophic pretibial soft tissuecalcifications are present on the left. There is mild bilateral intertarsaljoint space loss with subchondral sclerosis. Subtle erosive changes are seenabout the bilateral third through fifth metatarsal heads, more notable on theright. Images of the left and right hand demonstrate osteopenia with mild bilateralintercarpal crowding with mild widening of the right scapholunate interval.There is diffuse MCP and IP joint space loss. Subtle carpal cysticerosivechanges are noted bilaterally along with mild erosive changes about the ulnarstyloid processes. A foreign radiopacity is seen adjacent to the distal rightindex finger. 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 ?Personally interpreted by: JORGE SOTO MD /Miriam/ JORGE SOTO MDUnMerrick Medical Center, 3 [id number] 17:55:00*.*.*.*.*.*.*.*.*.*.*.*.*.*FINAL*.*.*.*.*.*.*.*.*.*.*.*.*.*.*EXAM: KNEE, 3 VIEWS-LEFT SIDE, EXAM: FOOT, COMPLETE MIN. 3 VIEWS-LEFT SIDE, EXAM: FOOT, COMPLETE MIN. 3 VIEWS-RIGHT SIDE, EXAM: HAND, 3 VIEWS AND MORE-LEFT SIDE, EXAM: HAND, 3 VIEWS AND MORE-RIGHT SIDE, EXAM: KNEE, 3 VIEWS-RIGHT SIDE HISTORY: please evaluate for any inflammatory or degenerative changes, thanks COMPARISON: None FINDINGS:Imaging of the left and right knee demonstrates diffuse osteopenia withposterior vascular calcifications. Moderate to severe bilateral patellofemoraland medial joint space narrowing, marginal osteophyte formation and subchondralsclerosis are seen. Subcortical cyst formation is seen at these sites.Degenerative tibial spine hypertrophy is present. Small bilateral jointeffusions are present. Images of the left and right foot demonstrates calcaneal enthesophyte formation.Mild diffuse soft tissue swelling is seen. Dystrophic pretibial soft tissuecalcifications are present on the left. There is mild bilateral intertarsaljoint space loss with subchondral sclerosis. Subtle erosive changes are seenabout the bilateral third through fifth metatarsal heads, more notable on theright. Images of the left and right hand demonstrate osteopenia with mild bilateralintercarpal crowding with mild widening of the right scapholunate interval.There is diffuse MCP and IP joint space loss. Subtle carpal cysticerosivechanges are noted bilaterally along with mild erosive changes about the ulnarstyloid processes. A foreign radiopacity is seen adjacent to the distal rightindex finger. 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 ?Personally interpreted by: JORGE SOTO MD /Signed/ JORGE SOTO MDHarris Health System Ben Taub HospitalFOOT, COMPLETE MIN. 3 VIEWS 2017-01-28 17:55:00 *.*.*.*.*.*.*.*.*.*.*.*.*.*FINAL*.*.*.*.*.*.*.*.*.*.*.*.*.*.*EXAM: KNEE, 3 VIEWS-LEFT SIDE, EXAM: FOOT, COMPLETE MIN. 3 VIEWS-LEFT SIDE, EXAM: FOOT, COMPLETE MIN. 3 VIEWS-RIGHT SIDE, EXAM: HAND, 3 VIEWS AND MORE-LEFT SIDE, EXAM: HAND, 3 VIEWS AND MORE-RIGHT SIDE, EXAM: KNEE, 3 VIEWS-RIGHT SIDE HISTORY: please evaluate for any inflammatory or degenerative changes, thanks COMPARISON: None FINDINGS:Imaging of the left and right knee demonstrates diffuse osteopenia withposterior vascular calcifications. Moderate to severe bilateral patellofemoraland medial joint space narrowing, marginal osteophyte formation and subchondralsclerosis are seen. Subcortical cyst formation is seen at these sites.Degenerative tibial spine hypertrophy is present. Small bilateral jointeffusions are present. Images of the left and right foot demonstrates calcaneal enthesophyte formation.Mild diffuse soft tissue swelling is seen. Dystrophic pretibial soft tissuecalcifications are present on the left. There is mild bilateral intertarsaljoint space loss with subchondral sclerosis. Subtle erosive changes are seenabout the bilateral third through fifth metatarsal heads, more notable on theright. Images of the left and right hand demonstrate osteopenia with mild bilateralintercarpal crowding with mild widening of the right scapholunate interval.There is diffuse MCP and IP joint space loss. Subtle carpal cysticerosivechanges are noted bilaterally along with mild erosive changes about the ulnarstyloid processes. A foreign radiopacity is seen adjacent to the distal rightindex finger. 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 ?Personally interpreted by: JORGE SOTO MD /Signed/ JORGE SOTO MDUnWilson N. Jones Regional Medical CenterFOOT, COMPLETE MIN. 3 VIEWS 2017-01-28 17:55:00 *.*.*.*.*.*.*.*.*.*.*.*.*.*FINAL*.*.*.*.*.*.*.*.*.*.*.*.*.*.*EXAM: KNEE, 3 VIEWS-LEFT SIDE, EXAM: FOOT, COMPLETE MIN. 3 VIEWS-LEFT SIDE, EXAM: FOOT, COMPLETE MIN. 3 VIEWS-RIGHT SIDE, EXAM: HAND, 3 VIEWS AND MORE-LEFT SIDE, EXAM: HAND, 3 VIEWS AND MORE-RIGHT SIDE, EXAM: KNEE, 3 VIEWS-RIGHT SIDE HISTORY: please evaluate for any inflammatory or degenerative changes, thanks COMPARISON: None FINDINGS:Imaging of the left and right knee demonstrates diffuse osteopenia withposterior vascular calcifications. Moderate to severe bilateral patellofemoraland medial joint space narrowing, marginal osteophyte formation and subchondralsclerosis are seen. Subcortical cyst formation is seen at these sites.Degenerative tibial spine hypertrophy is present. Small bilateral jointeffusions are present. Images of the left and right foot demonstrates calcaneal enthesophyte formation.Mild diffuse soft tissue swelling is seen. Dystrophic pretibial soft tissuecalcifications are present on the left. There is mild bilateral intertarsaljoint space loss with subchondral sclerosis. Subtle erosive changes are seenabout the bilateral third through fifth metatarsal heads, more notable on theright. Images of the left and right hand demonstrate osteopenia with mild bilateralintercarpal crowding with mild widening of the right scapholunate interval.There is diffuse MCP and IP joint space loss. Subtle carpal cysticerosivechanges are noted bilaterally along with mild erosive changes about the ulnarstyloid processes. A foreign radiopacity is seen adjacent to the distal rightindex finger. 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 ?Personally interpreted by: JORGE SOTO MD /Signed/ JORGE SOTO MDUnWilson N. Jones Regional Medical CenterCULTURE, ROUTINE [ADDED] 2016-01-19 00:00:00* Test Item Value Reference Range Interpretation Comme nts CULTURE, ROUTINE (test code = 00523) SPECIMEN NUMBER: [id number] William Valencia AustinCULTURE, ROUTINE [ADDED]2016-01-19 00:00:00* Test Item Value Reference Range Interpretation Comme nts CULTURE, ROUTINE (test code = 20819) SPECIMEN NUMBER: [id number] CULTURE, ROUTINE [ADDED]2016-01-19 00:00:00* Test Item Value Reference Range Interpretation Comme nts CULTURE, ROUTINE (test code = 86273) SPECIMEN NUMBER: [id number] William Valencia AustinCULTURE, ROUTINE [ADDED]2016-01-19 00:00:00* Test Item Value Reference Range Interpretation Comme nts CULTURE, ROUTINE (test code = 68084) SPECIMEN NUMBER: [id number] William Valencia AustinCULTURE, ROUTINE [ADDED]2016-01-19 00:00:00* Test Item Value Reference Range Interpretation Comme nts CULTURE, ROUTINE (test code = 92388) SPECIMEN NUMBER: [id number] William F AustinCULTURE, ROUTINE [ADDED]2016-01-19 00:00:00* Test Item Value Reference Range Interpretation Comme nts CULTURE, ROUTINE (test code = 66134) SPECIMEN NUMBER: [id number] William QuinonesCULTURE, ROUTINE [ADDED]2016-01-19 00:00:00* Test Item Value Reference Range Interpretation Comme nts CULTURE, ROUTINE (test code = 31403) SPECIMEN NUMBER: [id number] William GormanLTCHANTAL, ROUTINE [ADDED]2016-01-19 00:00:00* Test Item Value Reference Range Interpretation Comme nts CULTURE, ROUTINE (test code = 30157) SPECIMEN NUMBER: [id number] William QuinonesCULTCHANTAL, ROUTINE [ADDED]2016-01-19 00:00:00* Test Item Value Reference Range Interpretation Comme nts CULTURE, ROUTINE (test code = 44231) SPECIMEN NUMBER: [id number] William QuinonesC W/AUTO [id number] 00:00:00* Test Item Value Reference Range Interpretation Comme nts WBC (test code = 1001) 8.2 K/UL RBC (test code = 1002) 4.74 M/UL HEMOGLOBIN (test code = 1003) 12.8 G/DL HEMATOCRIT (test code = 1004) 39.5 % MCV (test code = 1005) 83.3 fL MCH (test code = 1006) 27.0 PG MCHC (test code = 1007) 32.4 G/DL RDW (test code = 1038) 15.2 % NEUTROPHILS (test code = 1008) 56 % LYMPHOCYTES (test code = 1010) 28 % MONOCYTES (test code = 1011) 10 % EOSINOPHILS (test code = 1012) 5 % PLATELET COUNT (test code = 1015) 379 K/UL William QuinonesHEMOGLOBIN [id number] 00:00:00* Test Item Value Reference Range Interpretation Comme nts HEMOGLOBIN A1c (test code = 30183) 6.0 % William QuinonesTHYROID II PROFILE (T3U, T4, T7, TSH)2016-01-17 00:00:00* Test Item Value Reference Range Interpretation Comme nts T3 UPTAKE (test code = 2817) 27.4 % T4 (THYROXINE) (test code = 2819) 9.2 UG/DL CALCULATED T7 (FTI) (test co de = 2820) 2.52 TSH (test code = 2821) 4.9 UIU/ML William QuinonesCBC W/AUTO [id number] 00:00:00* Test Item Value Reference Range Interpretation Comme nts WBC (test code = 1001) 8.2 K/UL RBC (test code = 1002) 4.74 M/UL HEMOGLOBIN (test code = 1003) 12.8 G/DL HEMATOCRIT (test code = 1004) 39.5 % MCV (test code = 1005) 83.3 fL MCH (test code = 1006) 27.0 PG MCHC (test code = 1007) 32.4 G/DL RDW (test code = 1038) 15.2 % NEUTROPHILS (test code = 1008) 56 % LYMPHOCYTES (test code = 1010) 28 % MONOCYTES (test code = 1011) 10 % EOSINOPHILS (test code = 1012) 5 % PLATELET COUNT (test code = 1015) 379 K/UL William QuinonesHEMOGLOBIN [id number] 00:00:00* Test Item Value Reference Range Interpretation Comme nts HEMOGLOBIN A1c (test code = 50540) 6.0 % William QuinonesTHYROID II PROFILE (T3U, T4, T7, TSH)2016-01-17 00:00:00* Test Item Value Reference Range Interpretation Comme nts T3 UPTAKE (test code = 2817) 27.4 % T4 (THYROXINE) (test code = 2819) 9.2 UG/DL CALCULATED T7 (FTI) (test co de = 2820) 2.52 TSH (test code = 2821) 4.9 UIU/ML William QuinonesCBC W/AUTO [id number] 00:00:00* Test Item Value Reference Range Interpretation Comme nts WBC (test code = 1001) 8.2 K/UL RBC (test code = 1002) 4.74 M/UL HEMOGLOBIN (test code = 1003) 12.8 G/DL HEMATOCRIT (test code = 1004) 39.5 % MCV (test code = 1005) 83.3 fL MCH (test code = 1006) 27.0 PG MCHC (test code = 1007) 32.4 G/DL RDW (test code = 1038) 15.2 % NEUTROPHILS (test code = 1008) 56 % LYMPHOCYTES (test code = 1010) 28 % MONOCYTES (test code = 1011) 10 % EOSINOPHILS (test code = 1012) 5 % BASOPHILS (test code = 1013) % PLATELET COUNT (test code = 1015) 379 K/UL CBC W/AUTO [id number] 00:00:00* Test Item Value Reference Range Interpretation Comme nts WBC (test code = 1001) 8.2 K/UL RBC (test code = 1002) 4.74 M/UL HEMOGLOBIN (test code = 1003) 12.8 G/DL HEMATOCRIT (test code = 1004) 39.5 % MCV (test code = 1005) 83.3 fL MCH (test code = 1006) 27.0 PG MCHC (test code = 1007) 32.4 G/DL RDW (test code = 1038) 15.2 % NEUTROPHILS (test code = 1008) 56 % LYMPHOCYTES (test code = 1010) 28 % MONOCYTES (test code = 1011) 10 % EOSINOPHILS (test code = 1012) 5 % PLATELET COUNT (test code = 1015) 379 K/UL Willima Valencia AustinHEMOGLOBIN [id number] 00:00:00* Test Item Value Reference Range Interpretation Comme [facility] HEMOGLOBIN A1c (test code = 29308) 6.0 % HEMOGLOBIN [id number] 00:00:00* Test Item Value Reference Range Interpretation Comme nts HEMOGLOBIN A1c (test code = 84793) 6.0 % William QuinonesTHYROID II PROFILE (T3U, T4, T7, TSH)2016-01-17 00:00:00* Test Item Value Reference Range Interpretation Comme nts T3 UPTAKE (test code = 2817) 27.4 % T4 (THYROXINE) (test code = 2819) 9.2 UG/DL CALCULATED T7 (FTI) (test co de = 2820) 2.52 TSH (test code = 2821) 4.9 UIU/ML William Valencia AustinTHYROID II PROFILE (T3U, T4, T7, TSH)2016-01-17 00:00:00* Test Item Value Reference Range Interpretation Comme nts T3 UPTAKE (test code = 2817) 27.4 % T4 (THYROXINE) (test code = 2819) 9.2 UG/DL CALCULATED T7 (FTI) (test co de = 2820) 2.52 TSH (test code = 2821) 4.9 UIU/ML CBC W/AUTO [id number] 00:00:00* Test Item Value Reference Range Interpretation Comme nts WBC (test code = 1001) 8.2 K/UL RBC (test code = 1002) 4.74 M/UL HEMOGLOBIN (test code = 1003) 12.8 G/DL HEMATOCRIT (test code = 1004) 39.5 % MCV (test code = 1005) 83.3 fL MCH (test code = 1006) 27.0 PG MCHC (test code = 1007) 32.4 G/DL RDW (test code = 1038) 15.2 % NEUTROPHILS (test code = 1008) 56 % LYMPHOCYTES (test code = 1010) 28 % MONOCYTES (test code = 1011) 10 % EOSINOPHILS (test code = 1012) 5 % PLATELET COUNT (test code = 1015) 379 K/UL William QuinonesHEMOGLOBIN [id number] 00:00:00* Test Item Value Reference Range Interpretation Comme nts HEMOGLOBIN A1c (test code = 65138) 6.0 % William QuinonesTHYROID II PROFILE (T3U, T4, T7, TSH)2016-01-17 00:00:00* Test Item Value Reference Range Interpretation Comme nts T3 UPTAKE (test code = 2817) 27.4 % T4 (THYROXINE) (test code = 2819) 9.2 UG/DL CALCULATED T7 (FTI) (test co de = 2820) 2.52 TSH (test code = 2821) 4.9 UIU/ML William QuinonesCBC W/AUTO [id number] 00:00:00* Test Item Value Reference Range Interpretation Comme nts WBC (test code = 1001) 8.2 K/UL RBC (test code = 1002) 4.74 M/UL HEMOGLOBIN (test code = 1003) 12.8 G/DL HEMATOCRIT (test code = 1004) 39.5 % MCV (test code = 1005) 83.3 fL MCH (test code = 1006) 27.0 PG MCHC (test code = 1007) 32.4 G/DL RDW (test code = 1038) 15.2 % NEUTROPHILS (test code = 1008) 56 % LYMPHOCYTES (test code = 1010) 28 % MONOCYTES (test code = 1011) 10 % EOSINOPHILS (test code = 1012) 5 % PLATELET COUNT (test code = 1015) 379 K/UL William QuinonesHEMOGLOBIN [id number] 00:00:00* Test Item Value Reference Range Interpretation Comme nts HEMOGLOBIN A1c (test code = 16571) 6.0 % William QuinonesTHYROID II PROFILE (T3U, T4, T7, TSH)2016-01-17 00:00:00* Test Item Value Reference Range Interpretation Comme nts T3 UPTAKE (test code = 2817) 27.4 % T4 (THYROXINE) (test code = 2819) 9.2 UG/DL CALCULATED T7 (FTI) (test co de = 2820) 2.52 TSH (test code = 2821) 4.9 UIU/ML William QuinonesCBC W/AUTO [id number] 00:00:00* Test Item Value Reference Range Interpretation Comme nts WBC (test code = 1001) 8.2 K/UL RBC (test code = 1002) 4.74 M/UL HEMOGLOBIN (test code = 1003) 12.8 G/DL HEMATOCRIT (test code = 1004) 39.5 % MCV (test code = 1005) 83.3 fL MCH (test code = 1006) 27.0 PG MCHC (test code = 1007) 32.4 G/DL RDW (test code = 1038) 15.2 % NEUTROPHILS (test code = 1008) 56 % LYMPHOCYTES (test code = 1010) 28 % MONOCYTES (test code = 1011) 10 % EOSINOPHILS (test code = 1012) 5 % PLATELET COUNT (test code = 1015) 379 K/UL William QuinonesHEMOGLOBIN [id number] 00:00:00* Test Item Value Reference Range Interpretation Comme nts HEMOGLOBIN A1c (test code = 62181) 6.0 % William QuinonesTHYROID II PROFILE (T3U, T4, T7, TSH)2016-01-17 00:00:00* Test Item Value Reference Range Interpretation Comme nts T3 UPTAKE (test code = 2817) 27.4 % T4 (THYROXINE) (test code = 2819) 9.2 UG/DL CALCULATED T7 (FTI) (test co de = 2820) 2.52 TSH (test code = 2821) 4.9 UIU/ML William Valencia AustinCBC W/AUTO [id number] 00:00:00* Test Item Value Reference Range Interpretation Comme nts WBC (test code = 1001) 8.2 K/UL RBC (test code = 1002) 4.74 M/UL HEMOGLOBIN (test code = 1003) 12.8 G/DL HEMATOCRIT (test code = 1004) 39.5 % MCV (test code = 1005) 83.3 fL MCH (test code = 1006) 27.0 PG MCHC (test code = 1007) 32.4 G/DL RDW (test code = 1038) 15.2 % NEUTROPHILS (test code = 1008) 56 % LYMPHOCYTES (test code = 1010) 28 % MONOCYTES (test code = 1011) 10 % EOSINOPHILS (test code = 1012) 5 % PLATELET COUNT (test code = 1015) 379 K/UL William Valencia AustinHEMOGLOBIN [id number] 00:00:00* Test Item Value Reference Range Interpretation Comme nts HEMOGLOBIN A1c (test code = 81161) 6.0 % William Valencia CatlinTHYROID II PROFILE (T3U, T4, T7, TSH)2016-01-17 00:00:00* Test Item Value Reference Range Interpretation Comme nts T3 UPTAKE (test code = 2817) 27.4 % T4 (THYROXINE) (test code = 2819) 9.2 UG/DL CALCULATED T7 (FTI) (test co de = 2820) 2.52 TSH (test code = 2821) 4.9 UIU/ML William Valencia CatlinCBC W/AUTO [id number] 00:00:00* Test Item Value Reference Range Interpretation Comme nts WBC (test code = 1001) 8.2 K/UL RBC (test code = 1002) 4.74 M/UL HEMOGLOBIN (test code = 1003) 12.8 G/DL HEMATOCRIT (test code = 1004) 39.5 % MCV (test code = 1005) 83.3 fL MCH (test code = 1006) 27.0 PG MCHC (test code = 1007) 32.4 G/DL RDW (test code = 1038) 15.2 % NEUTROPHILS (test code = 1008) 56 % LYMPHOCYTES (test code = 1010) 28 % MONOCYTES (test code = 1011) 10 % EOSINOPHILS (test code = 1012) 5 % PLATELET COUNT (test code = 1015) 379 K/UL William Valencia AustinHEMOGLOBIN [id number] 00:00:00* Test Item Value Reference Range Interpretation Comme nts HEMOGLOBIN A1c (test code = 57845) 6.0 % William Valencia AustinTHYROID II PROFILE (T3U, T4, T7, TSH)2016-01-17 00:00:00* Test Item Value Reference Range Interpretation Comme nts T3 UPTAKE (test code = 2817) 27.4 % T4 (THYROXINE) (test code = 2819) 9.2 UG/DL CALCULATED T7 (FTI) (test co de = 2820) 2.52 TSH (test code = 2821) 4.9 UIU/ML William Valencia AustinTHYROID II PROFILE (T3U, T4, T7, TSH)2015-06-30 00:00:00* Test Item Value Reference Range Interpretation Comme nts T3 UPTAKE (test code = 2817) 28.1 % T4 (THYROXINE) (test code = 2819) 8.7 UG/DL CALCULATED T7 (FTI) (test co de = 2820) 2.44 TSH (test code = 2821) 1.9 UIU/ML William Valencia AustinTHYROID II PROFILE (T3U, T4, T7, TSH)2015-06-30 00:00:00* Test Item Value Reference Range Interpretation Comme nts T3 UPTAKE (test code = 2817) 28.1 % T4 (THYROXINE) (test code = 2819) 8.7 UG/DL CALCULATED T7 (FTI) (test co de = 2820) 2.44 TSH (test code = 2821) 1.9 UIU/ML THYROID II PROFILE (T3U, T4, T7, TSH)2015-06-30 00:00:00* Test Item Value Reference Range Interpretation Comme nts T3 UPTAKE (test code = 2817) 28.1 % T4 (THYROXINE) (test code = 2819) 8.7 UG/DL CALCULATED T7 (FTI) (test co de = 2820) 2.44 TSH (test code = 2821) 1.9 UIU/ML William Valencia AustinTHYROID II PROFILE (T3U, T4, T7, TSH)2015-06-30 00:00:00* Test Item Value Reference Range Interpretation Comme nts T3 UPTAKE (test code = 2817) 28.1 % T4 (THYROXINE) (test code = 2819) 8.7 UG/DL CALCULATED T7 (FTI) (test co de = 2820) 2.44 TSH (test code = 2821) 1.9 UIU/ML William Valencia AustinTHYROID II PROFILE (T3U, T4, T7, TSH)2015-06-30 00:00:00* Test Item Value Reference Range Interpretation Comme nts T3 UPTAKE (test code = 2817) 28.1 % T4 (THYROXINE) (test code = 2819) 8.7 UG/DL CALCULATED T7 (FTI) (test co de = 2820) 2.44 TSH (test code = 2821) 1.9 UIU/ML William Valencia AustinTHYROID II PROFILE (T3U, T4, T7, TSH)2015-06-30 00:00:00* Test Item Value Reference Range Interpretation Comme nts T3 UPTAKE (test code = 2817) 28.1 % T4 (THYROXINE) (test code = 2819) 8.7 UG/DL CALCULATED T7 (FTI) (test co de = 2820) 2.44 TSH (test code = 2821) 1.9 UIU/ML William Valencia AustinTHYROID II PROFILE (T3U, T4, T7, TSH)2015-06-30 00:00:00* Test Item Value Reference Range Interpretation Comme nts T3 UPTAKE (test code = 2817) 28.1 % T4 (THYROXINE) (test code = 2819) 8.7 UG/DL CALCULATED T7 (FTI) (test co de = 2820) 2.44 TSH (test code = 2821) 1.9 UIU/ML William Valencia AustinTHYROID II PROFILE (T3U, T4, T7, TSH)2015-06-30 00:00:00* Test Item Value Reference Range Interpretation Comme nts T3 UPTAKE (test code = 2817) 28.1 % T4 (THYROXINE) (test code = 2819) 8.7 UG/DL CALCULATED T7 (FTI) (test co de = 2820) 2.44 TSH (test code = 2821) 1.9 UIU/ML William Valencia AustinTHYROID II PROFILE (T3U, T4, T7, TSH)2015-06-30 00:00:00* Test Item Value Reference Range Interpretation Comme nts T3 UPTAKE (test code = 2817) 28.1 % T4 (THYROXINE) (test code = 2819) 8.7 UG/DL CALCULATED T7 (FTI) (test co de = 2820) 2.44 TSH (test code = 2821) 1.9 UIU/ML William QuinonesCBC W/AUTO [id number] 00:00:00* Test Item Value Reference Range Interpretation Comme nts WBC (test code = 1001) 7.8 K/UL RBC (test code = 1002) 4.47 M/UL HEMOGLOBIN (test code = 1003) 12.6 G/DL HEMATOCRIT (test code = 1004) 37.5 % MCV (test code = 1005) 83.9 fL MCH (test code = 1006) 28.2 PG MCHC (test code = 1007) 33.6 G/DL RDW (test code = 1038) 13.9 % NEUTROPHILS (test code = 1008) 64 % LYMPHOCYTES (test code = 1010) 26 % MONOCYTES (test code = 1011) 7 % EOSINOPHILS (test code = 1012) 2 % PLATELET COUNT (test code = 1015) 372 K/UL William QuinonesLIPID [id number] 00:00:00* Test Item Value Reference Range Interpretation Comme nts CHOLESTEROL (test code = 2210) 206 MG/DL TRIGLYCERIDES (test code = 2232) 157 MG/DL HDL CHOLESTEROL (test code = 2220) 47 MG/DL CALCULATED LDL CHOL (test co de = 2237) 128 MG/DL RISK RATIO LDL/HDL (test cod e = 2238) 2.71 RATIO William QuinonesCOMPREHENSIVE METABOLIC [id number] 00:00:00* Test Item Value Reference Range Interpretation Comme nts GLUCOSE (test code = 2217) 98 MG/DL BUN (test code = 2208) 9 MG/DL CREATININE (test code = 2214) 0.5 MG/DL eGFR AMER. (test cod e = 17285) 151 ML/MIN/1.73 eGFR NON- AMER. (test code = 91774) 125 ML/MIN/1.73 CALCULATED BUN/CREAT (test code = 2235) 18 RATIO SODIUM (test code = 2231) 144 MEQ/L POTASSIUM (test code = 2228) 3.6 MEQ/L CHLORIDE (test code = 2215) 108 MEQ/L CARBON DIOXIDE (test code = 2206) 28 MEQ/L CALCIUM (test code = 2209) 9.1 MG/DL PROTEIN, TOTAL (test code = 2229) 7.5 G/DL ALBUMIN (test code = 2201) 3.4 G/DL CALCULATED GLOBULIN (test code = 2240) 4.1 G/DL CALCULATED A/G RATIO (test code = 2234) 0.8 RATIO BILIRUBIN, TOTAL (test code = 2207) 0.4 MG/DL ALKALINE PHOSPHATASE (test code = 2204) 40 U/L SGOT (AST) (test code = 2218) 16 U/L SGPT (ALT) (test code = 2219) 11 U/L William QuinonesCBC W/AUTO [id number] 00:00:00* Test Item Value Reference Range Interpretation Comme nts WBC (test code = 1001) 7.8 K/UL RBC (test code = 1002) 4.47 M/UL HEMOGLOBIN (test code = 1003) 12.6 G/DL HEMATOCRIT (test code = 1004) 37.5 % MCV (test code = 1005) 83.9 fL MCH (test code = 1006) 28.2 PG MCHC (test code = 1007) 33.6 G/DL RDW (test code = 1038) 13.9 % NEUTROPHILS (test code = 1008) 64 % LYMPHOCYTES (test code = 1010) 26 % MONOCYTES (test code = 1011) 7 % EOSINOPHILS (test code = 1012) 2 % PLATELET COUNT (test code = 1015) 372 K/UL William QuinonesCOMPREHENSIVE METABOLIC [id number] 00:00:00* Test Item Value Reference Range Interpretation Comme nts GLUCOSE (test code = 2217) 98 MG/DL BUN (test code = 2208) 9 MG/DL CREATININE (test code = 2214) 0.5 MG/DL eGFR AMER. (test cod e = 07261) 151 ML/MIN/1.73 eGFR NON- AMER. (test code = 28426) 125 ML/MIN/1.73 CALCULATED BUN/CREAT (test code = 2235) 18 RATIO SODIUM (test code = 2231) 144 MEQ/L POTASSIUM (test code = 2228) 3.6 MEQ/L CHLORIDE (test code = 2215) 108 MEQ/L CARBON DIOXIDE (test code = 2206) 28 MEQ/L CALCIUM (test code = 2209) 9.1 MG/DL PROTEIN, TOTAL (test code = 2229) 7.5 G/DL ALBUMIN (test code = 2201) 3.4 G/DL CALCULATED GLOBULIN (test code = 2240) 4.1 G/DL CALCULATED A/G RATIO (test code = 2234) 0.8 RATIO BILIRUBIN, TOTAL (test code = 2207) 0.4 MG/DL ALKALINE PHOSPHATASE (test code = 2204) 40 U/L SGOT (AST) (test code = 2218) 16 U/L SGPT (ALT) (test code = 2219) 11 U/L LIPID [id number] 00:00:00* Test Item Value Reference Range Interpretation Comme nts CHOLESTEROL (test code = 2210) 206 MG/DL TRIGLYCERIDES (test code = 2232) 157 MG/DL HDL CHOLESTEROL (test code = 2220) 47 MG/DL CALCULATED LDL CHOL (test co de = 2237) 128 MG/DL RISK RATIO LDL/HDL (test cod e = 2238) 2.71 RATIO William QuinonesCOMPREHENSIVE METABOLIC [id number] 00:00:00* Test Item Value Reference Range Interpretation Comme nts GLUCOSE (test code = 2217) 98 MG/DL BUN (test code = 2208) 9 MG/DL CREATININE (test code = 2214) 0.5 MG/DL eGFR AMER. (test cod e = 98165) 151 ML/MIN/1.73 eGFR NON- AMER. (test code = 15787) 125 ML/MIN/1.73 CALCULATED BUN/CREAT (test code = 2235) 18 RATIO SODIUM (test code = 2231) 144 MEQ/L POTASSIUM (test code = 2228) 3.6 MEQ/L CHLORIDE (test code = 2215) 108 MEQ/L CARBON DIOXIDE (test code = 2206) 28 MEQ/L CALCIUM (test code = 2209) 9.1 MG/DL PROTEIN, TOTAL (test code = 2229) 7.5 G/DL ALBUMIN (test code = 2201) 3.4 G/DL CALCULATED GLOBULIN (test code = 2240) 4.1 G/DL CALCULATED A/G RATIO (test code = 2234) 0.8 RATIO BILIRUBIN, TOTAL (test code = 2207) 0.4 MG/DL ALKALINE PHOSPHATASE (test code = 2204) 40 U/L SGOT (AST) (test code = 2218) 16 U/L SGPT (ALT) (test code = 2219) 11 U/L William ForresterC W/AUTO [id number] 00:00:00* Test Item Value Reference Range Interpretation Comme nts WBC (test code = 1001) 7.8 K/UL RBC (test code = 1002) 4.47 M/UL HEMOGLOBIN (test code = 1003) 12.6 G/DL HEMATOCRIT (test code = 1004) 37.5 % MCV (test code = 1005) 83.9 fL MCH (test code = 1006) 28.2 PG MCHC (test code = 1007) 33.6 G/DL RDW (test code = 1038) 13.9 % NEUTROPHILS (test code = 1008) 64 % LYMPHOCYTES (test code = 1010) 26 % MONOCYTES (test code = 1011) 7 % EOSINOPHILS (test code = 1012) 2 % PLATELET COUNT (test code = 1015) 372 K/UL William ForresterC W/AUTO [id number] 00:00:00* Test Item Value Reference Range Interpretation Comme nts WBC (test code = 1001) 7.8 K/UL RBC (test code = 1002) 4.47 M/UL HEMOGLOBIN (test code = 1003) 12.6 G/DL HEMATOCRIT (test code = 1004) 37.5 % MCV (test code = 1005) 83.9 fL MCH (test code = 1006) 28.2 PG MCHC (test code = 1007) 33.6 G/DL RDW (test code = 1038) 13.9 % NEUTROPHILS (test code = 1008) 64 % LYMPHOCYTES (test code = 1010) 26 % MONOCYTES (test code = 1011) 7 % EOSINOPHILS (test code = 1012) 2 % BASOPHILS (test code = 1013) % PLATELET COUNT (test code = 1015) 372 K/UL LIPID [id number] 00:00:00* Test Item Value Reference Range Interpretation Comme nts CHOLESTEROL (test code = 2210) 206 MG/DL TRIGLYCERIDES (test code = 2232) 157 MG/DL HDL CHOLESTEROL (test code = 2220) 47 MG/DL CALCULATED LDL CHOL (test co de = 2237) 128 MG/DL RISK RATIO LDL/HDL (test cod e = 2238) 2.71 RATIO William QuinonesLIPID [id number] 00:00:00* Test Item Value Reference Range Interpretation Comme nts CHOLESTEROL (test code = 2210) 206 MG/DL TRIGLYCERIDES (test code = 2232) 157 MG/DL HDL CHOLESTEROL (test code = 2220) 47 MG/DL CALCULATED LDL CHOL (test co de = 2237) 128 MG/DL RISK RATIO LDL/HDL (test cod e = 2238) 2.71 RATIO COMPREHENSIVE METABOLIC [id number] 00:00:00* Test Item Value Reference Range Interpretation Comme nts GLUCOSE (test code = 2217) 98 MG/DL BUN (test code = 2208) 9 MG/DL CREATININE (test code = 2214) 0.5 MG/DL eGFR AMER. (test cod e = 40479) 151 ML/MIN/1.73 eGFR NON- AMER. (test code = 75372) 125 ML/MIN/1.73 CALCULATED BUN/CREAT (test code = 2235) 18 RATIO SODIUM (test code = 2231) 144 MEQ/L POTASSIUM (test code = 2228) 3.6 MEQ/L CHLORIDE (test code = 2215) 108 MEQ/L CARBON DIOXIDE (test code = 2206) 28 MEQ/L CALCIUM (test code = 2209) 9.1 MG/DL PROTEIN, TOTAL (test code = 2229) 7.5 G/DL ALBUMIN (test code = 2201) 3.4 G/DL CALCULATED GLOBULIN (test code = 2240) 4.1 G/DL CALCULATED A/G RATIO (test code = 2234) 0.8 RATIO BILIRUBIN, TOTAL (test code = 2207) 0.4 MG/DL ALKALINE PHOSPHATASE (test code = 2204) 40 U/L SGOT (AST) (test code = 2218) 16 U/L SGPT (ALT) (test code = 2219) 11 U/L William QuinonesCBC W/AUTO [id number] 00:00:00* Test Item Value Reference Range Interpretation Comme nts WBC (test code = 1001) 7.8 K/UL RBC (test code = 1002) 4.47 M/UL HEMOGLOBIN (test code = 1003) 12.6 G/DL HEMATOCRIT (test code = 1004) 37.5 % MCV (test code = 1005) 83.9 fL MCH (test code = 1006) 28.2 PG MCHC (test code = 1007) 33.6 G/DL RDW (test code = 1038) 13.9 % NEUTROPHILS (test code = 1008) 64 % LYMPHOCYTES (test code = 1010) 26 % MONOCYTES (test code = 1011) 7 % EOSINOPHILS (test code = 1012) 2 % PLATELET COUNT (test code = 1015) 372 K/UL William QuinonesLIPID [id number] 00:00:00* Test Item Value Reference Range Interpretation Comme nts CHOLESTEROL (test code = 2210) 206 MG/DL TRIGLYCERIDES (test code = 2232) 157 MG/DL HDL CHOLESTEROL (test code = 2220) 47 MG/DL CALCULATED LDL CHOL (test co de = 2237) 128 MG/DL RISK RATIO LDL/HDL (test cod e = 2238) 2.71 RATIO William QuinonesCOMPREHENSIVE METABOLIC [id number] 00:00:00* Test Item Value Reference Range Interpretation Comme nts GLUCOSE (test code = 2217) 98 MG/DL BUN (test code = 2208) 9 MG/DL CREATININE (test code = 2214) 0.5 MG/DL eGFR AMER. (test cod e = 54614) 151 ML/MIN/1.73 eGFR NON- AMER. (test code = 19329) 125 ML/MIN/1.73 CALCULATED BUN/CREAT (test code = 2235) 18 RATIO SODIUM (test code = 2231) 144 MEQ/L POTASSIUM (test code = 2228) 3.6 MEQ/L CHLORIDE (test code = 2215) 108 MEQ/L CARBON DIOXIDE (test code = 2206) 28 MEQ/L CALCIUM (test code = 2209) 9.1 MG/DL PROTEIN, TOTAL (test code = 2229) 7.5 G/DL ALBUMIN (test code = 2201) 3.4 G/DL CALCULATED GLOBULIN (test code = 2240) 4.1 G/DL CALCULATED A/G RATIO (test code = 2234) 0.8 RATIO BILIRUBIN, TOTAL (test code = 2207) 0.4 MG/DL ALKALINE PHOSPHATASE (test code = 2204) 40 U/L SGOT (AST) (test code = 2218) 16 U/L SGPT (ALT) (test code = 2219) 11 U/L William QuinonesCBC W/AUTO [id number] 00:00:00* Test Item Value Reference Range Interpretation Comme nts WBC (test code = 1001) 7.8 K/UL RBC (test code = 1002) 4.47 M/UL HEMOGLOBIN (test code = 1003) 12.6 G/DL HEMATOCRIT (test code = 1004) 37.5 % MCV (test code = 1005) 83.9 fL MCH (test code = 1006) 28.2 PG MCHC (test code = 1007) 33.6 G/DL RDW (test code = 1038) 13.9 % NEUTROPHILS (test code = 1008) 64 % LYMPHOCYTES (test code = 1010) 26 % MONOCYTES (test code = 1011) 7 % EOSINOPHILS (test code = 1012) 2 % PLATELET COUNT (test code = 1015) 372 K/UL William QuinonesLIPID [id number] 00:00:00* Test Item Value Reference Range Interpretation Comme nts CHOLESTEROL (test code = 2210) 206 MG/DL TRIGLYCERIDES (test code = 2232) 157 MG/DL HDL CHOLESTEROL (test code = 2220) 47 MG/DL CALCULATED LDL CHOL (test co de = 2237) 128 MG/DL RISK RATIO LDL/HDL (test cod e = 2238) 2.71 RATIO William QuinonesCOMPREHENSIVE METABOLIC [id number] 00:00:00* Test Item Value Reference Range Interpretation Comme nts GLUCOSE (test code = 2217) 98 MG/DL BUN (test code = 2208) 9 MG/DL CREATININE (test code = 2214) 0.5 MG/DL eGFR AMER. (test cod e = 45799) 151 ML/MIN/1.73 eGFR NON- AMER. (test code = 15600) 125 ML/MIN/1.73 CALCULATED BUN/CREAT (test code = 2235) 18 RATIO SODIUM (test code = 2231) 144 MEQ/L POTASSIUM (test code = 2228) 3.6 MEQ/L CHLORIDE (test code = 2215) 108 MEQ/L CARBON DIOXIDE (test code = 2206) 28 MEQ/L CALCIUM (test code = 2209) 9.1 MG/DL PROTEIN, TOTAL (test code = 2229) 7.5 G/DL ALBUMIN (test code = 2201) 3.4 G/DL CALCULATED GLOBULIN (test code = 2240) 4.1 G/DL CALCULATED A/G RATIO (test code = 2234) 0.8 RATIO BILIRUBIN, TOTAL (test code = 2207) 0.4 MG/DL ALKALINE PHOSPHATASE (test code = 2204) 40 U/L SGOT (AST) (test code = 2218) 16 U/L SGPT (ALT) (test code = 2219) 11 U/L William QuinonesCBC W/AUTO [id number] 00:00:00* Test Item Value Reference Range Interpretation Comme nts WBC (test code = 1001) 7.8 K/UL RBC (test code = 1002) 4.47 M/UL HEMOGLOBIN (test code = 1003) 12.6 G/DL HEMATOCRIT (test code = 1004) 37.5 % MCV (test code = 1005) 83.9 fL MCH (test code = 1006) 28.2 PG MCHC (test code = 1007) 33.6 G/DL RDW (test code = 1038) 13.9 % NEUTROPHILS (test code = 1008) 64 % LYMPHOCYTES (test code = 1010) 26 % MONOCYTES (test code = 1011) 7 % EOSINOPHILS (test code = 1012) 2 % PLATELET COUNT (test code = 1015) 372 K/UL William QuinonesLIPID [id number] 00:00:00* Test Item Value Reference Range Interpretation Comme nts CHOLESTEROL (test code = 2210) 206 MG/DL TRIGLYCERIDES (test code = 2232) 157 MG/DL HDL CHOLESTEROL (test code = 2220) 47 MG/DL CALCULATED LDL CHOL (test co de = 2237) 128 MG/DL RISK RATIO LDL/HDL (test cod e = 2238) 2.71 RATIO William QuinonesCOMPREHENSIVE METABOLIC [id number] 00:00:00* Test Item Value Reference Range Interpretation Comme nts GLUCOSE (test code = 2217) 98 MG/DL BUN (test code = 2208) 9 MG/DL CREATININE (test code = 2214) 0.5 MG/DL eGFR AMER. (test cod e = 06179) 151 ML/MIN/1.73 eGFR NON- AMER. (test code = 35600) 125 ML/MIN/1.73 CALCULATED BUN/CREAT (test code = 2235) 18 RATIO SODIUM (test code = 2231) 144 MEQ/L POTASSIUM (test code = 2228) 3.6 MEQ/L CHLORIDE (test code = 2215) 108 MEQ/L CARBON DIOXIDE (test code = 2206) 28 MEQ/L CALCIUM (test code = 2209) 9.1 MG/DL PROTEIN, TOTAL (test code = 2229) 7.5 G/DL ALBUMIN (test code = 2201) 3.4 G/DL CALCULATED GLOBULIN (test code = 2240) 4.1 G/DL CALCULATED A/G RATIO (test code = 2234) 0.8 RATIO BILIRUBIN, TOTAL (test code = 2207) 0.4 MG/DL ALKALINE PHOSPHATASE (test code = 2204) 40 U/L SGOT (AST) (test code = 2218) 16 U/L SGPT (ALT) (test code = 2219) 11 U/L William QuinonesCBC W/AUTO [id number] 00:00:00* Test Item Value Reference Range Interpretation Comme nts WBC (test code = 1001) 7.8 K/UL RBC (test code = 1002) 4.47 M/UL HEMOGLOBIN (test code = 1003) 12.6 G/DL HEMATOCRIT (test code = 1004) 37.5 % MCV (test code = 1005) 83.9 fL MCH (test code = 1006) 28.2 PG MCHC (test code = 1007) 33.6 G/DL RDW (test code = 1038) 13.9 % NEUTROPHILS (test code = 1008) 64 % LYMPHOCYTES (test code = 1010) 26 % MONOCYTES (test code = 1011) 7 % EOSINOPHILS (test code = 1012) 2 % PLATELET COUNT (test code = 1015) 372 K/UL William QuinonesLIPID [id number] 00:00:00* Test Item Value Reference Range Interpretation Comme nts CHOLESTEROL (test code = 2210) 206 MG/DL TRIGLYCERIDES (test code = 2232) 157 MG/DL HDL CHOLESTEROL (test code = 2220) 47 MG/DL CALCULATED LDL CHOL (test co de = 2237) 128 MG/DL RISK RATIO LDL/HDL (test cod e = 2238) 2.71 RATIO William QuinonesCOMPREHENSIVE METABOLIC [id number] 00:00:00* Test Item Value Reference Range Interpretation Comme nts GLUCOSE (test code = 2217) 98 MG/DL BUN (test code = 2208) 9 MG/DL CREATININE (test code = 2214) 0.5 MG/DL eGFR AMER. (test cod e = 36574) 151 ML/MIN/1.73 eGFR NON- AMER. (test code = 34770) 125 ML/MIN/1.73 CALCULATED BUN/CREAT (test code = 2235) 18 RATIO SODIUM (test code = 2231) 144 MEQ/L POTASSIUM (test code = 2228) 3.6 MEQ/L CHLORIDE (test code = 2215) 108 MEQ/L CARBON DIOXIDE (test code = 2206) 28 MEQ/L CALCIUM (test code = 2209) 9.1 MG/DL PROTEIN, TOTAL (test code = 2229) 7.5 G/DL ALBUMIN (test code = 2201) 3.4 G/DL CALCULATED GLOBULIN (test code = 2240) 4.1 G/DL CALCULATED A/G RATIO (test code = 2234) 0.8 RATIO BILIRUBIN, TOTAL (test code = 2207) 0.4 MG/DL ALKALINE PHOSPHATASE (test code = 2204) 40 U/L SGOT (AST) (test code = 2218) 16 U/L SGPT (ALT) (test code = 2219) 11 U/L William QuinonesCBC W/AUTO [id number] 00:00:00* Test Item Value Reference Range Interpretation Comme nts WBC (test code = 1001) 7.8 K/UL RBC (test code = 1002) 4.47 M/UL HEMOGLOBIN (test code = 1003) 12.6 G/DL HEMATOCRIT (test code = 1004) 37.5 % MCV (test code = 1005) 83.9 fL MCH (test code = 1006) 28.2 PG MCHC (test code = 1007) 33.6 G/DL RDW (test code = 1038) 13.9 % NEUTROPHILS (test code = 1008) 64 % LYMPHOCYTES (test code = 1010) 26 % MONOCYTES (test code = 1011) 7 % EOSINOPHILS (test code = 1012) 2 % PLATELET COUNT (test code = 1015) 372 K/UL Willima QuinonesLIPID [id number] 00:00:00* Test Item Value Reference Range Interpretation Comme nts CHOLESTEROL (test code = 2210) 206 MG/DL TRIGLYCERIDES (test code = 2232) 157 MG/DL HDL CHOLESTEROL (test code = 2220) 47 MG/DL CALCULATED LDL CHOL (test co de = 2237) 128 MG/DL RISK RATIO LDL/HDL (test cod e = 2238) 2.71 RATIO William QuinonesCOMPREHENSIVE METABOLIC [id number] 00:00:00* Test Item Value Reference Range Interpretation Comme nts GLUCOSE (test code = 2217) 98 MG/DL BUN (test code = 2208) 9 MG/DL CREATININE (test code = 2214) 0.5 MG/DL eGFR AMER. (test cod e = 12672) 151 ML/MIN/1.73 eGFR NON- AMER. (test code = 77412) 125 ML/MIN/1.73 CALCULATED BUN/CREAT (test code = 2235) 18 RATIO SODIUM (test code = 2231) 144 MEQ/L POTASSIUM (test code = 2228) 3.6 MEQ/L CHLORIDE (test code = 2215) 108 MEQ/L CARBON DIOXIDE (test code = 2206) 28 MEQ/L CALCIUM (test code = 2209) 9.1 MG/DL PROTEIN, TOTAL (test code = 2229) 7.5 G/DL ALBUMIN (test code = 2201) 3.4 G/DL CALCULATED GLOBULIN (test code = 2240) 4.1 G/DL CALCULATED A/G RATIO (test code = 2234) 0.8 RATIO BILIRUBIN, TOTAL (test code = 2207) 0.4 MG/DL ALKALINE PHOSPHATASE (test code = 2204) 40 U/L SGOT (AST) (test code = 2218) 16 U/L SGPT (ALT) (test code = 2219) 11 U/L William Valencia Joni Consult Notes Date/Time Note Provider Source 2024-12-27 09:14:00 Associated Order(s): CONSULT ADULT PHYSICAL THERAPY Images from the original note were not included. Patient agreeable to working with physical therapy. Patient semireclining in bed and Heels offloaded? Yes Using pillows, No visitors present. Recommend nursing staff utilize Mechanical lift to safely assist patient with mobility out of the bed or chair. PHYSICAL THERAPY EVALUATION A portion of this evaluation was completed in tandem with OT services due to patient acuity and low activity tolerance. However, only PT portion was billed for this note. Consult received, chart reviewed and evaluation complete this date. Patient is referred to PT for evaluation and treatment. Patient is a 69 year old female who presents to hospital for PAD (peripheral artery disease) [I73.9] S/P transmetatarsal amputation of foot, right [Z89.431]. Vascular Surgery H&P Update 12/23/2024 Inocencia Wu is a 69 year old female patient who presents for R TMA debridement and arteriogram with possible angioplasty, stenting, possible deep venous arterialization. The patient was seen and examined in preop. Since last being seen in clinic, the patient has been doing well with no interval health changes. Properly NPO. Signed consent is located inside the chart. Risks, benefits, and alternatives to treatment were discussed with the patient who would like to proceed with surgery. Please see clinic note below for further details. BRIEF OPERATIVE NOTE Date of Surgery: 12/23/2024 Pre-Op Diagnosis: PAD (peripheral artery disease) [I73.9] S/P transmetatarsal amputation of foot, right [Z89.431] Post-Op Diagnosis Codes: * PAD (peripheral artery disease) [I73.9] * S/P transmetatarsal amputation of foot, right [Z89.431] Procedures: Right superficial femoral artery cutdown and primary repair of superficial femoral artery Right lower extremity arteriogram Balloon angioplasty of the tibioperoneal trunk and posterior tibial artery using a 4 mm x 80 mm Guido balloon Right lower extremity deep venous arterialization (stenting of the right tibioperoneal trunk into the posterior tibial vein using a 5 mm X 25 cm and 5mm x 5cm Viabahn stent with post stenting balloon angioplasty using a 5 mm x 80 mm Guido balloon) Selective 3rd order cannulation of the posterior tibial artery Right transmetatarsal amputation debridement (down to and including bone) - PT/OT OOB to chair, activity as tolerated and heel bearing on R foot Discharge Recommendations: Therapy Needs and Potential: Patient would benefit from continued physical therapy services to address: decline in bed mobility decline in transfers decline in gait and/or balance decline w/c mobility decreased strength decreased range of motion decreased endurance decreased motor planning Patient demonstrates good potential to improve and meet therapy goals with further physical therapy services. Patient appears motivated to improve their functional mobility and return to their previous level of function. Patient demonstrates ability to tolerate atleast 30-60 minutes of physical therapy with active participation. Challenges to Home Transition: increased risk of falls decreased caregiver availability decreased safety awareness Equipment recommendations: Patient has or access to necessary equipment Current Functional Status and/or Treatment: AM-PAC 6 Clicks (Raw Score 0=Dependent, 24=Independent; Low function Raw Score 0= Dependent, 32=Independent): Raw Score - Basic Mobility : 6 T-Scale Score - Basic Mobility : 19.59 Despite attempting twice throughout the day, and with extensive encouragement, Pt refused to participate in functional PT evaluation due to unwillingness, pain, and malaise. Pt is well known to acute rehab department and has a history of non adherence to rehab participation. Pt will attempt to complete functional assessment at a later date to maximize rehab potential Bed Mobility: patient refused Transfers: patient refused Ambulation: patient refused After session, patient semireclining in bed and Heels offloaded? Yes Using pillows, No visitors present. Call button provided. PLAN OF CARE: While in the hospital, PT will follow patient at least 2 times per week,once or twice a day, per patient's tolerance and needs. See below for complete details. Admit Date: 12/23/2024 Hospital Diagnosis:PAD (peripheral artery disease) [I73.9] S/P transmetatarsal amputation of foot, right [Z89.431] PT Diagnosis: Difficulty walking, Weakness, Malaise/fatigue, Pain, and Abnormality of gait and balance Weight Bearing Precaution: "activity as tolerated and heel bearing on R foot" General Precautions: General, Fall,IV x2, Wound VAC Bracing/Cast present or required:N/A PMH: Past Medical History: Diagnosis Date Abnormal chest CT calcified granuloma 8mm RUL per chest CT 12/12/16, no f/u needed per Dr. Becerra Blood dyscrasia DM2 (diabetes mellitus, type 2) noton medications due to controlled. History of gangrene 2013 History of nocturia Hyperlipidemia Hypovitaminosis D 01/05/2018 Leiomyoma of uterus resolved ? in her 20's MSSA (methicillin susceptible Staphylococcus aureus) infection 07/30/2018 Primary hypertension 12/24/2024 Pulmonary nodules 02/16/2019 RA (rheumatoid arthritis) Superficial thrombophlebitis Thyroid disease Urinary incontinence Urinary urgency PSH: Past Surgical History: Procedure Laterality Date ANGIOGRAM VIA LOWER EXTREMITY ACCESS (SHX) Left 10/16/2024 Surgeon: Luis Jay MD; [facility] ANGIOGRAM VIA LOWER EXTREMITY ACCESS (SHX) Bilateral 10/14/2024 Surgeon: Nader Casanova MD; [facility] ANGIOGRAM VIA LOWER EXTREMITY ACCESS (SHX) Right 12/23/2024 Surgeon: Nader Casanova MD; [facility] BUNIONECTOMY Right 12/23/2018 Surgeon: Aayush Carlson Jr., DPM; [facility] DEBRIDEMENT LOWER EXTREMITY (SHX) Right 10/22/2024 Surgeon: Andrew Sena DO; Location: [facility] DEBRIDEMENT OF FINGER WOUND (SHX) 06/01/2014 FINGER AMPUTATION Left 06/06/2014 Surgeon: Sherice Clemons MD; [facility] FINGER AMPUTATION 2016 Left Hand / middle finger HAND DEBRIDEMENT Left 06/01/2014 Surgeon: Sherice Clemons MD; [facility] SHEN BUNION (SHX) Right 12/23/2018 Surgeon: Aayush Carlson Jr., DPM; [facility] TOE AMPUTATION Left 10/16/2024 Surgeon: Luis Jay MD; [facility] TOE AMPUTATION Right 10/22/2024 Surgeon: Andrew Sena DO; [facility] TOTAL KNEE ARTHROPLASTY Left 02/15/2018 Surgeon: Parth Ibarra MD; Location: [facility] TOTAL KNEE ARTHROPLASTY Right 02/14/2019 Surgeon: Parth Ibarra MD; Location: [facility] TRANSMETATARSAL AMPUTATION Right 11/23/2024 Surgeon: Luis Jay MD; Location: [facility] VASCULAR STENTING Right 12/23/2024 Surgeon: Nader Casanova MD; Location: [facility] WOUND DEBRIDEMENT Right 12/23/2024 Surgeon: Nader Casanova MD; Location: [facility] PRIOR LIVING SITUATION: lives alone and in a house, 3 SHAD c hand rail. Upon recent discharge, pt returned to her daughter's house, single story, 0 SHAD DME: Bed Side Commode, Single Point Cane, RW Prior level of Mobility: community ambulation, house hold ambulation, ambulates with straight Cane, IND with no physical barriers Suspected ischemic or hemorraghic stroke:No Subjective: Pt stated she in a lot of pain despite the nurse recently giving her medicine Patient/Family Goals: I want to have less pain and go home Patient/Family verbalizes understanding of condition: Yes PAIN: -Pain Description: aching -Pain Location: right foot -Pain rating before treatment: does not rate, After treatment: does not rate -Pain Management: Decreased movement aides in some pain reduction and Repositioning Provided COMMUNICATION Primary Language: Chinese and Indonesian Able to Verbalize needs: Yes Vision:good; no issues reported Hearing:good; no issues reported ORIENTATION/COGNITION: Oriented to: person, place, date/time, and situation Awake: Yes Alert: Yes Dizzy: No Follows Commands: Yes 1-Step Yes Multi-Step Yes Inconsistent: No NEUROLOGICAL Light Touch: within functional limits LLE, RLE WNL until metatarsal heads s/p amputation Heel to robertson: WNL Tone: WNL BALANCE: Sitting: Static: NT Dynamic: NT Standing: Static: NT Dynamic: NT RANGE OF MOTION: within functional limits bilateral LE, guarding to R ankle due to acute post surgical pain STRENGTH: 4-/5, bilateral LE, except R ankle, DNT due to post op acuity and pain ENDURANCE: Poor, Room air SKIN INTEGRITY: Refer to nursing note for details, PROBLEM LIST: Decline in bed mobility, Decline in gait, Decline in transfers, Decreased strength, Decreased endurance, Decreased balance, decline in wheel chair mobiliity, Weight bearing restrictions, Safety awareness deficits, Pain, Decreased Coordination, and Decreased Motor Planning ASSESSMENT: Patient is a 69 year old female seen secondary to the above listed diagnosis. Patient would benefit from continued PT to address the above listed deficits to maximize independence and safety with functional mobility. Rehabilitation Potential: guarded Goals: The following goals are to maximize independence and safety with functional mobility to eventually return to prior living situation and prior functional status. 1. Rolling: Supervision Sit to supine: Supervision Supine to sit: Supervision 2. Sit to stand: Supervision using LRAD Stand to sit: Supervision using LRAD Stand pivot transfer: Supervision Squat pivot transfer: Supervision 3 Independent with wheelchair propulsion and management of brakes. 4. Pt will report reduced pain with mobility from 10/10 to at least 5/10 to improve physical performance. 5. Pt will tolerate sitting up in chair for at least 2 hours/day to help optimize rehab potential. 6. Pt will be IND with home exercise program. Treatment Plan: Gait training, Therapeutic exercise, Transfer training, Balance training, Bed mobility training, Equipment needs assessment, Safety education, patient/caregiver education, Wheelchair mobility training, Pain management, and Functional Motor Training PATIENT EDUCATION: Patient provided with preferred teaching of verbal information, written information, and demonstration on role of PT, plan of care, HEP. Barriers to learning include desire and motivation. Verbal instruction and Demonstration teaching provided. Individual is able to read and verbalizes understanding of teaching provided, accurately returns demonstration of skill, needs reinforcement of teaching, and Indicates understanding of teaching provided. [id number] - [id number] AND 0076 - 1719 Total Time Tx Codes in Minutes: 8 min Total Treatment Time in Minutes: 21 min Garth Hawkins, PT, DPT [facility] Department of Rehabilitation Services Pager: [phone] [facility] 2024-12-27 09:05:00 Associated Order(s): CONSULT ADULT OCCUPATIONAL THERAPY OT GENERAL EVALUATION Consult received via [employer], EMR reviewed and evaluation completed 12/27/24. Patient referred to occupational therapy for evaluation and treatment s/p wound debridement, angiogram via lower extremity access, and vascular stenting. Patient agreeable to participate in occupational therapy. Patient found semireclining in bed, DARREN LE elevated. Discharge Recommendations: Therapy Needs and Potential: - Patient would benefit from continued skilled occupational therapy services to address: Decline in basic activities of daily living, Decline in instrumental activities of daily living, Decreased strength, Decreased endurance, and impaired self care mobility - Patient demonstrates good potential to improve and meet therapy goals with further skilled occupational therapy services. - Patient appears motivated to improve their BADLS and IADLs and return to their previous level of function. - Patient demonstrates ability to tolerate at least 30-60 minutes of active participation in occupational therapy. - Patient able to follow commands: 1-step Yes, Multi-step Yes, Inconsistencies No Challenges to Home Transition: - Requires physical assistance for BADLS - Requires physical assistance for IADLS - Requires supervision or verbal cues for BADLS - Requires supervision or verbal cues for IADLS - Limited caregiver availability - Decreased safety awareness/judgement - Increased risk of falls - Environmental barriers - lives alone, combo tub, steps to enter home Equipment Recommendations: At this time, OT recommending hospital bed and mechanical lift, but will continue to update as the patient progresses with OT and consents to out of bed mobility. PLAN OF CARE: At least 2x/week Precautions: Weight bearing status: WB through Heel on R Foot General: PPE Utilized: Gloves, Fall, Wound vac to RLE, Telemetry, and IV Bracing: Post Op Shoe R Foot Current Occupational Performance and/or Treatment: AM-PAC 6 Clicks (Raw Score 0=Dependent, 24=Independent; Low function Raw Score 0= Dependent, 32=Independent): Raw Score - Daily Activity: 13 T-Scale Score - Daily Activity: 32.03 Feeding: Supervision, patient demonstrates ability to bring hands to face to drink water from cup w/ straw if appropriate Grooming: Supervision, setup for bed level grooming tasks; UB Dressing: Moderate Assistance, to don gown from front; pt with mod assist primarily for task initiation due to poor motivation and refusal LB Dressing: Maximum Assistance, to don sock to L LE; pt refuses to move RLE at this time and inconsistently moves L LE. Toileting Hygiene: Total Assistance, brief in place at this time Functional Mobility: Patient seen for bed level evaluation at this time. Patient with poor compliance to therapy recommendations and refuses EOB/OOB mobility despite max encouragement and education. OT will continue to attempt mobility with patient to progress towards therapeutic goals. Patient/caregiver educated on: ADL training, AROM, Deep breathing, Relaxation/breathing techniques, Role of OT, Safety awareness, and WB restrictions Patient left semireclining in bed with call thomason in reach. R LE elevated. Please, see full evaluation below for more detail. OT EVALUATION: 69 year old female Admit date: 12/23/2024 Date of onset: 12/23/2024 Admit Diagnosis: PAD (peripheral artery disease) [I73.9] S/P transmetatarsal amputation of foot, right [Z89.431] OT Diagnosis: Impaired BADL independence, Impaired IADL independence, Weakness, Decreased endurance, Impaired self-care mobility, and Limited joint ROM PMH: Past Medical History: Diagnosis Date Abnormal chest CT calcified granuloma 8mm RUL per chest CT 12/12/16, no f/u needed per Dr. Becerra Blood dyscrasia DM2 (diabetes mellitus, type 2) noton medications due to controlled. History of gangrene 2013 History of nocturia Hyperlipidemia Hypovitaminosis D 01/05/2018 Leiomyoma of uterus resolved ? in her 's MSSA (methicillin susceptible Staphylococcus aureus) infection 07/30/2018 Primary hypertension 12/24/2024 Pulmonary nodules 02/16/2019 RA (rheumatoid arthritis) Superficial thrombophlebitis Thyroid disease Urinary incontinence Urinary urgency PSH: Past Surgical History: Procedure Laterality Date ANGIOGRAM VIA LOWER EXTREMITY ACCESS (SHX) Left 10/16/2024 Surgeon: Luis Jay MD; [facility] ANGIOGRAM VIA LOWER EXTREMITY ACCESS (SHX) Bilateral 10/14/2024 Surgeon: Nader Casanova MD; [facility] ANGIOGRAM VIA LOWER EXTREMITY ACCESS (SHX) Right 12/23/2024 Surgeon: Nader Casanova MD; [facility] BUNIONECTOMY Right 12/23/2018 Surgeon: Aayush Carlson Jr., DPM; [facility] DEBRIDEMENT LOWER EXTREMITY (SHX) Right 10/22/2024 Surgeon: Andrew Sena DO; [facility] DEBRIDEMENT OF FINGER WOUND (SHX) 06/01/2014 FINGER AMPUTATION Left 06/06/2014 Surgeon: Sherice Clemons MD; [facility] FINGER AMPUTATION 2016 Left Hand / middle finger HAND DEBRIDEMENT Left 06/01/2014 Surgeon: Sherice Clemons MD; [facility] SHEN BUNION (SHX) Right 12/23/2018 Surgeon: Aayush Carlson Jr., DPM; [facility] TOE AMPUTATION Left 10/16/2024 Surgeon: Luis Jay MD; [facility] TOE AMPUTATION Right 10/22/2024 Surgeon: Andrew Sena DO; [facility] TOTAL KNEE ARTHROPLASTY Left 02/15/2018 Surgeon: Parth Ibarra MD; [facility] TOTAL KNEE ARTHROPLASTY Right 02/14/2019 Surgeon: Parth Ibarra MD; [facility] TRANSMETATARSAL AMPUTATION Right 11/23/2024 Surgeon: Luis Jay MD; Location: [facility] LOCATION VASCULAR STENTING Right 12/23/2024 Surgeon: Nader Casanova MD; [facility] WOUND DEBRIDEMENT Right 12/23/2024 Surgeon: Nader Casanova MD; Location: [facility] PAIN: Pain Location: right foot Pain rating before treatment: does not rate, After treatment: does not rate Pain Management: Reports taking pain meds, Decreased movement aides in some pain reduction, and Repositioning Provided OCCUPATIONAL ROLES/HOME ENVIRONMENT: Home environment: The patient lives alone in a single story home w/ 5 steps for entry. Bathroom access: Yes Bathroom setup: [employer] Occupation(s): Retired Function prior to admission: The patient reports that since her last admission, she has been using a wheelchair primarily and requires assistance with mobility/transfers and ADLs. Suspected ischemic or hemorraghic stroke patient: No Equipment prior to admission: Wheelchair PERFORMANCE SKILLS/FACTORS: UE Muscle Tone: bilateral WNL UE ROM: bilateral AROM WFL UE Strength: DARREN UE 4-/5 Hand dominance: right Dexterity/Coordination: bilateral Intact Endurance - Sitting: NT Standing: NT Sitting Balance - Static: NT Dynamic: NT Standing: Balance - Static NT Dynamic: NT Dizziness: No Skin Integrity: Patient with wound vac in place to R foot; defer further skin assessment to nursing staff. Sensation: Patient denies numbness and tingling. Oral Motor: Dentures Communication: Able to verbalize needs Yes Other: N/A Vision: WFL Yes Other: reading glasses Hearing: good; no issues reported COGNITION: Orientation: person, place, date/time, and situation Follows Commands: 1-step Yes Multi-step Yes Inconsistencies No Safety Awareness/Judgment: Fair and Requires frequent cueing PROBLEM LIST: Decreased independence with B/IADL, Decreased strength/endurance for functional activity, and impaired self care mobility REHAB POTENTIAL/PROGNOSIS: good PATIENT/FAMILY GOALS: Patient/patient corporate representative encouraged by therapist to set a goal, however, declined to identify a goal during therapy session. TREATMENT/INTERVENTION PLAN: Patient/Caregiver Education, Equipment recommendations, Daily living activities, and Therapeutic exercises GOAL(S): By discharge, patient will increase independence in daily living skills as follows: 1 Patient will demonstrate good static sitting balance x 5 minutes unsupported in preparation for EOB/OOB mobility and ADL participation. 2 Patient will perform grooming task while seated unsupported with supervision. 3 Patient will perform toilet transfer or 3 in 1 BSC transfer with minimal assistance while abiding by weightbearing precautions. 4 Patient will perform UB dressing with supervision. 5 Patient will perform LB dressing with supervision. 6 Patient will increase endurance for functional activity as evidenced by ability to sustain 30 minutes of active participation. 7 Patient/caregiver will verbalize/demonstrate understanding/proficiency in the following home programs: Adaptive equipment , Energy conservation, Fall prevention, and WB restrictions PATIENT-FAMILY TEACHING Patient provided with preferred teaching of verbal information and demonstration on ADL training, AROM, Deep breathing, Relaxation/breathing techniques, Role of OT, Safety awareness, and WB restrictions. Shows readiness to learn. Verbal instruction and Demonstration teaching provided. Individual is able to read and verbalizes understanding of teaching provided. TARA Cardona, MINA Pager #: [phone] Total Timed Treatment Codes: 9 Min Total Treatment Time: 25 Min Patient Complexity Level High - An occupational therapy evaluation of high complexity was completed using the above tests and measures. The following information was obtained: An occupational profile and medical and therapy history, including review of medical and/or therapy records and extensive additional review of physical, cognitive, or psychosocial history related to current functional performance, Various standardized and non-standardized assessments were used to identify at least 5 or more performance deficits related to physical, cognitive, or psychosocial skills that result in activity limitations and/or participation restrictions, and Clinical decision-making is of high analytic complexity, which includes an analysis of the patient profile, analysis of data from comprehensive assessment(s), and consideration of multiple treatment options. Patient present with comorbidities that affect occupational performance. Significant modification of tasks or assistance (e.g., physical or verbal) with assessment(s) is necessary to enable patient to complete evaluation component. Stephie Watson KEVIN [facility] 2024-12-26 08:42:31 Associated Order(s): CONSULT UROLOGY UROLOGY CONSULTATION NOTE Requesting Physician: Nader Casanova MD Date of Service: 12/26/2024 Reason for Consult: post op retention History of Present Illness Inocencia Wu, 69 year old female with PMH of hypothyroidism, Edmond, OAB previously on ditropan, s/p R LE angioplasty and transmetatarsal debridement on 12/23 who urology is consulted for post op retention now with rosenberg. Today's vitals and labs reviewed (cr wnl), no pertinent imaging. PVR 530 yesterday requiring CIC. Last BM Thursday. Medications: Home Medications: Medications Prior to Admission Medication Sig Dispense Refill Last Dose HYDROcodone-acetaminophen 5-325 mg tablet Take 1 tablet by mouth in the morning and 1 tablet at noon and 1 tablet in the evening. Taking methotrexate 2.5 mg tablet NT Miscellaneous Medical Supply Misc orders for pads, pull ups and incontinent supplies like wipes. 100 Each 2 misc DULoxetine 30 mg capsule Take 1 capsule by mouth in the morning. 90 capsule 1 Taking methocarbamoL 500 mg tablet Take 1 tablet by mouth in the morning and 1 tablet at noon and 1 tablet in the evening. Do all this for 30 days. 90 tablet 0 Taking aspirin 81 mg chewable tablet Take 1 tablet by mouth in the morning for 360 days. 30 tablet 11 Taking clopidogreL 75 mg tablet Take 1 tablet by mouth in the morning for 90 days. 30 tablet 2 Taking gabapentin 300 mg capsule Take 1 capsule by mouth in the morning and 1 capsule at noon and 1 capsule in the evening. Do all this for 60 days. 90 capsule 1 Taking losartan 25 mg tablet Take 1 tablet by mouth in the morning for 60 days. 30 tablet 1 Taking rosuvastatin 20 mg tablet Take 1 tablet by mouth in the morning for 360 days. 30 tablet 11 Taking zinc sulfate 50 mg zinc (220 mg) capsule Take 1 capsule by mouth in the morning and 1 capsule at noon and 1 capsule in the evening. Do all this for 90 days. 90 capsule 2 Taking omeprazole 40 mg capsule Take 1 capsule by mouth in the morning. Taking levothyroxine 50 mcg tablet Take 1 tablet by mouth every morning. 90 tablet 1 Taking Hospital Medications: Current Facility-Administered Medications Medication Dose Route Frequency Last Rate Last Admin heparin (1,000 unit/mL, 10 mL vial) 3,000-5,000 Units Slow IV Push FOR REBOLUSING heparin 25,000 Units/250 mL (Premixed Bag) in 0.45 % NS 0-2,350 Units/hr IV Infusion CONTINUOUS 11.5 mL/hr at 12/26/24 0720 1,150 Units/hr at 12/26/24 0720 tamsulosin (FLOMAX) capsule 0.4 mg 0.4 mg Oral DAILY 0.4 mg at 12/26/24 0833 fentanyl PF (SUBLIMAZE (PF)) injection 25 mcg 25 mcg Slow IV Push Q3HPRN 25 mcg at 12/25/24 0947 HYDROcodone-acetaminophen (NORCO) 10-325 mg tablet 1 tablet 1 tablet Oral Q4HPRN 1 tablet at 12/26/24 0833 acetaminophen (TYLENOL) tablet 650 mg 650 mg Oral Q6HPRN aspirin EC tablet 81 mg 81 mg Oral DAILY 81 mg at 12/26/24 0835 DULoxetine (CYMBALTA) capsule 30 mg 30 mg Oral DAILY 30 mg at 12/26/24 0833 gabapentin (NEURONTIN) capsule 300 mg 300 mg Oral TID 300 mg at 12/26/24 0833 levothyroxine (SYNTHROID) tablet 50 mcg 50 mcg Oral QAM-0600 50 mcg at 12/26/24 0613 methocarbamoL (ROBAXIN) tablet 500 mg 500 mg Oral TID 500 mg at 12/26/24 0833 midodrine (PROAMATINE) tablet 10 mg 10 mg Oral Q3HPRN ondansetron (ZOFRAN (PF)) injection 4 mg 4 mg Slow IV Push Q6HPRN pantoprazole (PROTONIX) EC tablet 40 mg 40 mg Oral BID 40 mg at 12/26/24 0833 rosuvastatin (CRESTOR) tablet 20 mg 20 mg Oral DAILY 20 mg at 12/26/24 0833 zinc sulfate (ORAZINC) capsule 50 mg 50 mg Oral TID 50 mg at 12/26/24 0833 Histories: Past Medical History: Diagnosis Date Abnormal chest CT calcified granuloma 8mm RUL per chest CT 12/12/16, no f/u needed per Dr. Becerra Blood dyscrasia DM2 (diabetes mellitus, type 2) noton medications due to controlled. History of gangrene 2013 History of nocturia Hyperlipidemia Hypovitaminosis D 01/05/2018 Leiomyoma of uterus resolved ? in her 20's MSSA (methicillin susceptible Staphylococcus aureus) infection 07/30/2018 Primary hypertension 12/24/2024 Pulmonary nodules 02/16/2019 RA (rheumatoid arthritis) Superficial thrombophlebitis Thyroid disease Urinary incontinence Urinary urgency Past Surgical History: Procedure Laterality Date ANGIOGRAM VIA LOWER EXTREMITY ACCESS (SHX) Left 10/16/2024 Surgeon: Luis Jay MD; [facility] ANGIOGRAM VIA LOWER EXTREMITY ACCESS (SHX) Bilateral 10/14/2024 Surgeon: Nader Casanova MD; [facility] ANGIOGRAM VIA LOWER EXTREMITY ACCESS (SHX) Right 12/23/2024 Surgeon: Nader Casanova MD; [facility]: [facility] BUNIONECTOMY Right 12/23/2018 Surgeon: Aayush Carlson Jr., DPM; [facility] DEBRIDEMENT LOWER EXTREMITY (SHX) Right 10/22/2024 Surgeon: Andrew Sena DO; [facility]: [facility] DEBRIDEMENT OF FINGER WOUND (SHX) 06/01/2014 FINGER AMPUTATION Left 06/06/2014 Surgeon: Sherice Clemons MD; [facility] FINGER AMPUTATION 2016 Left Hand / middle finger HAND DEBRIDEMENT Left 06/01/2014 Surgeon: Sherice Clemons MD; [facility] SHEN BUNION (SHX) Right 12/23/2018 Surgeon: Aayush Carlson Jr., DPM; [facility] TOE AMPUTATION Left 10/16/2024 Surgeon: Luis Jay MD; [facility] TOE AMPUTATION Right 10/22/2024 Surgeon: Andrew Sena DO; [facility] TOTAL KNEE ARTHROPLASTY Left 02/15/2018 Surgeon: Parth Ibarra MD; [facility] TOTAL KNEE ARTHROPLASTY Right 02/14/2019 Surgeon: Parth Ibarra MD; [facility] TRANSMETATARSAL AMPUTATION Right 11/23/2024 Surgeon: Luis Jay MD; [facility] VASCULAR STENTING Right 12/23/2024 Surgeon: Nader Casanova MD; [facility] WOUND DEBRIDEMENT Right 12/23/2024 Surgeon: Nader Casanova MD; [facility] Family History Problem Relation Age of Onset Arthritis Mother Arthritis Sister osteoarthritis Asthma NoFHx defects NoFHx Breast Cancer NoFHx Colon Cancer NoFHx Ovarian Cancer NoFHx Uterine Cancer NoFHx Cancer NoFHx Depression NoFHx Diabetes NoFHx Genetic NoFHx Heart NoFHx High cholesterol NoFHx Hypertension NoFHx Mental retardation NoFHx Neurological NoFHx Osteoporosis NoFHx Psychiatry NoFHx Other - see comments NoFHx Social History Socioeconomic History Marital status: Single Number of children: 2 Occupational History Occupation: retired Tobacco Use Smoking status: Former Types: Cigarettes Passive exposure: Past Smokeless tobacco: Never Tobacco comments: Quit smoking around 2011 Vaping Use Vaping status: Never Used Substance and Sexual Activity Alcohol use: Yes Comment: rare Drug use: No Sexual activity: Not Currently Partners: Male control/protection: Post-menopausal Social History Narrative Single, 2 kids Lives with daughter No domestic or physical violence within the home Hoahaoism Preference: [employer] Social Determinants of Health Financial Resource Strain: Low Risk (12/07/2024) Overall Financial Resource Strain (CARDIA) Difficulty of Paying Living Expenses: Not hard at all Food Insecurity: No Food Insecurity (12/07/2024) NCSS - Food Insecurity Worried About Running Out of Food in the Last Year: No Ran Out of Food in the Last Year: No Transportation Needs: No Transportation Needs (12/07/2024) NCSS - Transportation Lack of Transportation: No Physical Activity: Inactive (12/07/2024) Exercise Vital Sign Days of Exercise per Week: 0 days Minutes of Exercise per Session: 0 min Housing Stability: At Risk (12/07/2024) NCSS - Housing/Utilities Has Housing: No Worried About Losing Housing: No Unable to Get Utilities: No Allergies: Allergies Allergen Reactions Doxycycline Nausea and/or Vomiting Sulfa (Sulfonamide Antibiotics) Nausea and/or Vomiting Bactrim Review of Systems: Constitutional: negative Eyes: negative Ears, nose, mouth, throat: negative Cardiovascular: negative Respiratory: negative Gastrointestinal: negative Genitourinary: (+) per HPI Musculoskeletal: negative Integumentary: negative Neurological: negative Psychiatric: negative Endocrine: negative Hematologic/Lymphatic: negative Allergic/Immunologic: negative, allergies listed above Physical Exam: Blood pressure 121/61, pulse 87, temperature 37.1 ?C (98.8 ?F), resp. rate 20, height 1.575 m (5' 2"), weight 63.5 kg (140 lb), SpO2 95%. Constitutional: no acute distress Cardiovascular: regular rate Respiratory: respirations unlabored on room air Gastrointestinal: soft, non-distended, non tender Genitourinary: rosenberg in place draining CYU Musculoskeletal: no CVA tenderness Neurologic: alert and oriented x3 Psychiatric: appropriate mood and affect Labs: Per hpi Radiology: Per hpi Assessment: Inocencia Wu is a 69 year old female with PMHx of Edmond, OAB s/p vascular procedure on 12/23 with post-op retention now with rosenberg. Cr wnl. Pt reports she hasn't ambulated or had BM since Thursday. Recommendations: - Trial of void on morning of discharge. If PVR >300cc, page urology for recs and to schedule f/u appt. Patient can otherwise f/u with urogyn or PCP - U/A, Ucx - Bowel regimen Yoly Holguin MD Urology Resident Cosigned by Francisco Guzman MD at 12/26/2024 10:14 AM CDT Associated attestation - Francisco Guzman MD - 12/26/2024 10:14 AM CDT Agree with note and plan as outlined by Dr. Holguin. Francisco Guzman MD 12/26/2024 10:14 AM UROLOGY [facility] 2024-12-24 11:19:41 Associated Order(s): CONSULT SURGICAL CO-MANAGEMENT (SCM) Images from the original note were not included. [facility] Division of General Medicine Surgical Co-Management (SCM) Service Initial Postoperative Consultation Note Patient: Inocencia Wu Date of Service: 12/24/2024 Hospitalization Day: Hospital Day: 2 Age: [age] year old Post-op Day: If s/p a procedure: 1 Day Post-Op Referring Physician: Nader Casanova MD Reason for Consult: Management of medical conditions during this hospitalization. Chief Complaint / Reason for Hospital Admission: PAD (peripheral artery disease) Procedure Details: 12/23/2024 Procedure(s): WOUND DEBRIDEMENT (Right) ANGIOGRAM VIA LOWER EXTREMITY ACCESS (Right) VASCULAR STENTING (Right) 4 Hr 37 Min 49 Sec Surgical and Procedural Summary Past Procedures (11/24/2024 to Today) Date Procedure/Visit Type Providers Status 12/23/2024 WOUND DEBRIDEMENTANGIOGRAM VIA LOWER EXTREMITY ACCESSVASCULAR STENTING Nader Casanova (Primary)Frances Thakkar EricSingh, Aman Deep Inpatient HPI: HISTORIES: Patient Active Problem List Diagnosis Date Noted Primary hypertension 12/24/2024 [facility] (current) use of antithrombotics/antiplatelets 12/24/2024 PAD (peripheral artery disease) 12/19/2024 RLE SFA, peroneal and AT angioplasty + D2 amp and wound vac placement 10/16/24 S/P transmetatarsal amputation of foot, right 12/19/2024 Patient has had a transmetatarsal amputation on 11/23/24 Pulmonary nodules 02/16/2019 S/P total knee arthroplasty, left 02/26/2018 Degenerative joint disease 02/17/2018 Other hyperlipidemia Hypovitaminosis D 01/05/2018 Positive PAOLO (antinuclear antibody) >1:1280, +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 Past Surgical History: Procedure Laterality Date ANGIOGRAM VIA LOWER EXTREMITY ACCESS (SHX) Left 10/16/2024 Surgeon: Luis Jay MD; [facility] ANGIOGRAM VIA LOWER EXTREMITY ACCESS (SHX) Bilateral 10/14/2024 Surgeon: Nader Casanova MD; [facility] BUNIONECTOMY Right 12/23/2018 Surgeon: Aayush Carlson Jr., DPM; [facility] DEBRIDEMENT LOWER EXTREMITY (SHX) Right 10/22/2024 Surgeon: Andrew Sena DO; Location: [facility] DEBRIDEMENT OF FINGER WOUND (SHX) 06/01/2014 FINGER AMPUTATION Left 06/06/2014 Surgeon: Sherice Clemons MD; [facility] FINGER AMPUTATION 2016 Left Hand / middle finger HAND DEBRIDEMENT Left 06/01/2014 Surgeon: Sherice Clemons MD; [facility] SHEN BUNION (SHX) Right 12/23/2018 Surgeon: Ayaush Carlson Jr., DPM; [facility] TOE AMPUTATION Left 10/16/2024 Surgeon: Luis Jay MD; [facility]: [facility] TOE AMPUTATION Right 10/22/2024 Surgeon: Andrew Sena DO; [facility] TOTAL KNEE ARTHROPLASTY Left 02/15/2018 Surgeon: Parth Ibarra MD; [facility] TOTAL KNEE ARTHROPLASTY Right 02/14/2019 Surgeon: Parth Ibarra MD; [facility] TRANSMETATARSAL AMPUTATION Right 11/23/2024 Surgeon: Luis Jay MD; [facility] Social History Socioeconomic History Marital status: Single Spouse name: Not on file Number of children: 2 Years of education: Not on file Highest education level: Not on file Occupational History Occupation: retired Tobacco Use Smoking status: Former Types: Cigarettes Passive exposure: Past Smokeless tobacco: Never Tobacco comments: Quit smoking around 2011 Vaping Use Vaping status: Never Used Substance and Sexual Activity Alcohol use: Yes Comment: rare Drug use: No Sexual activity: Not Currently Partners: Male control/protection: Post-menopausal Other Topics Concern Not on file Social History Narrative Single, 2 kids Lives with daughter No domestic or physical violence within the home Hoahaoism Preference: [employer] Social Determinants of Health Financial Resource Strain: Low Risk (12/07/2024) Overall Financial Resource Strain (CARDIA) Difficulty of Paying Living Expenses: Not hard at all Food Insecurity: No Food Insecurity (12/07/2024) NCSS - Food Insecurity Worried About Running Out of Food in the Last Year: No Ran Out of Food in the Last Year: No Transportation Needs: No Transportation Needs (12/07/2024) NCSS - Transportation Lack of Transportation: No Physical Activity: Inactive (12/07/2024) Exercise Vital Sign Days of Exercise per Week: 0 days Minutes of Exercise per Session: 0 min Stress: Not on file Social Connections: Not on file Housing Stability: At Risk (12/07/2024) NCSS - Housing/Utilities Has Housing: No Worried About Losing Housing: No Unable to Get Utilities: No Family History Problem Relation Age of Onset Arthritis Mother Arthritis Sister osteoarthritis Asthma NoFHx defects NoFHx Breast Cancer NoFHx Colon Cancer NoFHx Ovarian Cancer NoFHx Uterine Cancer NoFHx Cancer NoFHx Depression NoFHx Diabetes NoFHx Genetic NoFHx Heart NoFHx High cholesterol NoFHx Hypertension NoFHx Mental retardation NoFHx Neurological NoFHx Osteoporosis NoFHx Psychiatry NoFHx Other - see comments NoFHx Home medications: No current facility-administered medications on file prior to encounter. Current Outpatient Medications on File Prior to Encounter Medication Sig Dispense Refill HYDROcodone-acetaminophen 5-325 mg tablet Take 1 tablet by mouth in the morning and 1 tablet at noon and 1 tablet in the evening. methotrexate 2.5 mg tablet Miscellaneous Medical Supply Misc orders for pads, pull ups and incontinent supplies like wipes. 100 Each 2 DULoxetine 30 mg capsule Take 1 capsule by mouth in the morning. 90 capsule 1 methocarbamoL 500 mg tablet Take 1 tablet by mouth in the morning and 1 tablet at noon and 1 tablet in the evening. Do all this for 30 days. 90 tablet 0 aspirin 81 mg chewable tablet Take 1 tablet by mouth in the morning for 360 days. 30 tablet 11 clopidogreL 75 mg tablet Take 1 tablet by mouth in the morning for 90 days. 30 tablet 2 gabapentin 300 mg capsule Take 1 capsule by mouth in the morning and 1 capsule at noon and 1 capsule in the evening. Do all this for 60 days. 90 capsule 1 losartan 25 mg tablet Take 1 tablet by mouth in the morning for 60 days. 30 tablet 1 rosuvastatin 20 mg tablet Take 1 tablet by mouth in the morning for 360 days. 30 tablet 11 zinc sulfate 50 mg zinc (220 mg) capsule Take 1 capsule by mouth in the morning and 1 capsule at noon and 1 capsule in the evening. Do all this for 90 days. 90 capsule 2 omeprazole 40 mg capsule Take 1 capsule by mouth in the morning. levothyroxine 50 mcg tablet Take 1 tablet by mouth every morning. 90 tablet 1 Current Medications: Scheduled meds: aspirin, 81 mg, DAILY DULoxetine, 30 mg, DAILY gabapentin, 300 mg, TID levothyroxine, 50 mcg, QAM-0600 methocarbamoL, 500 mg, TID pantoprazole, 40 mg, BID rosuvastatin, 20 mg, DAILY zinc sulfate, 50 mg, TID IV meds: heparin 25,000 Units/250 mL IV infusion (NON-WEIGHT BASED), Last Rate: 500 Units/hr (12/24/24 0104) PRN meds: fentanyl citrate, 25 mcg, Q3HPRN HYDROcodone-acetaminophen, 1 tablet, Q4HPRN acetaminophen, 650 mg, Q6HPRN midodrine, 10 mg, Q3HPRN ondansetron, 4 mg, Q6HPRN ALLERGIES: Allergies Allergen Reactions Doxycycline Nausea and/or Vomiting Sulfa (Sulfonamide Antibiotics) Nausea and/or Vomiting Bactrim REVIEW OF SYSTEMS All systems negative except as otherwise stated in HPI PHYSICAL EXAM Temperature over last 24 hours: Temp (24hrs), Av.4 ?C (97.6 ?F), Min:36 ?C (96.8 ?F), Max:37.1 ?C (98.8 ?F) Vitals: 12/23/24 2140 12/23/24 2200 12/24/24 0431 12/24/24 0753 BP: 93/54 102/62 98/56 107/50 Pulse: 75 78 91 (!) 48 Resp: 20 16 16 Temp: 36.5 ?C (97.7 ?F) 36.4 ?C (97.5 ?F) 36.2 ?C (97.2 ?F) TempSrc: SpO2: 95% 96% 96% 97% Weight: 63.5 kg (140 lb) Height: Physical Exam Vitals and nursing note reviewed. Constitutional: Appearance: Normal appearance. HENT: Head: Normocephalic and atraumatic. Eyes: Extraocular Movements: Extraocular movements intact. Pupils: Pupils are equal, round, and reactive to light. Cardiovascular: Rate and Rhythm: Normal rate and regular rhythm. Pulmonary: Effort: Pulmonary effort is normal. Breath sounds: Normal breath sounds. Abdominal: General: Abdomen is flat. Bowel sounds are normal. Palpations: Abdomen is soft. Musculoskeletal: General: Normal range of motion. Cervical back: Normal range of motion and neck supple. Feet: Comments: Right Foot partial amputation: bandaged Skin: General: Skin is warm and dry. Capillary Refill: Capillary refill takes less than 2 seconds. Neurological: General: No focal deficit present. Mental Status: She is alert and oriented to person, place, and time. Mental status is at baseline. Psychiatric: Mood and Affect: Mood normal. Patient Lines/Drains/Airways Status Active LDAs Name Placement date Placement time Site Days Peripheral IV 12/23/24 1209 Left Antecubital Ultrasound not used 12/23/24 1209 Antecubital less than 1 Peripheral IV 12/23/24 1700 Left Hand 12/23/24 1700 Hand less than 1 Peripheral IV 12/23/24 1700 Right Hand 12/23/24 1700 Hand less than 1 Wound 09/20/24 0700 Bulla/Blister Toe - 2nd digit Anterior;Right;Medial blsters noted to right second toe medial 09/20/24 0700 Toe - 2nd digit 95 Wound 10/14/24 1419 Surgical - Incision/Wound Groin Left Angioseal closure device deployed in Left groin at 1249. 10/14/24 1419 Groin 70 Wound 10/22/24 1233 Surgical - Incision/Wound Foot Right Toe Amputation 10/22/24 1233 Foot 62 Wound 11/23/24 0845 Surgical - Incision/Wound Foot Right;Distal transmetatarsal amputation 11/23/24 0845 Foot 31 Wound 12/23/24 1504 Surgical - Incision/Wound Leg Anterior;Right;Upper 12/23/24 1504 Leg less than 1 Intake/Output Summary (Last 24 hours) at 12/24/2024 1124 Last data filed at 12/24/2024 0912 Gross per 24 hour Intake 2565 ml Output 175 ml Net 2390 ml Labs/Imaging - reviewed: Recent Labs 12/23/24 1800 12/24/24 1037 WBC 16.21* 16.98* HGB 10.9* 8.3* HCT 33.0* 25.9* PLT 264 274 Recent Labs 12/23/24 1800 12/24/24 1037 NA 138 135 K 3.5 3.7 CL 105 103 TCO2 26 30 BUN 10 12 CREAT 0.54 0.74 GLU 100 151* CA 8.4* 7.9* Lab Results Component Value Date/Time GLU 151 (H) 12/24/2024 10:37 AM GLU 100 12/23/2024 06:00 PM POC GLU 110 12/23/2024 05:58 PM POC GLU 114 (H) 12/23/2024 12:11 PM ASSESSMENT & PLAN: Medical Concerns (Pulled from Problem List): Principal Problem: PAD (peripheral artery disease) Active Problems: Acquired hypothyroidism Other hyperlipidemia S/P transmetatarsal amputation of foot, right Primary hypertension 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 Apparently stopped the last admission. 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 Hypertension and dyslipidemia are all stable at this time we will continue to monitor DVT Prophylaxis: Per Primary, on heparin drip at the moment Discharge Medication Recommendations: As of 12/24/2024, recommend that Inocencia Wu be discharged on the following for management of chronic medical conditions: Current Outpatient Medications Medication Instructions aspirin 81 mg, Oral, DAILY clopidogreL (PLAVIX) 75 mg, Oral, DAILY DULoxetine (CYMBALTA) 30 mg, Oral, DAILY gabapentin (NEURONTIN) 300 mg, Oral, TID levothyroxine (SYNTHROID) 50 mcg, Oral, QAM losartan (COZAAR) 25 mg, Oral, DAILY methocarbamoL (ROBAXIN) 500 mg, Oral, TID Discuss with Pathology Teacher SARAH omeprazole (PRILOSEC) 40 mg, Oral, DAILY rosuvastatin (CRESTOR) 20 mg, Oral, DAILY zinc sulfate (ORAZINC) 50 mg, Oral, TID Ras Bermudez MD, FAAP, FACP, SFHM Portions of this note were created using a voice-recognition transcribing system. Typographical errors and incorrect words or phrases may have been missed during proofreading. Please interpret accordingly. Time spent: Initial INPT OBS Time Based Codes: 60+ minutes The time spent for patient care includes: PreCharting (eg, review of tests, notes, etc.), Obtaining and/or reviewing separately obtained history (Care Everywhere or paper records), Performing a medically appropriate examination and/or evaluation, Counseling and educating the patient/family/caregiver, Ordering medications, tests, or procedures, Ordering referrals and/or communicating with other health residential care officer (when not separately reported), Documenting clinical information in the electronic or other health record, and Independently interpreting results (not separately reported) and/or communicating results to the patient/family/caregiver. [facility] [place] 2024-11-25 11:30:00 Associated Order(s): CONSULT ADULT PHYSICAL THERAPY Patient agreeable to working with physical therapy. Patient supine in bed, No visitors present. Recommend nursing staff utilize Moderate assist to safely assist patient with mobility out of the bed or chair. PHYSICAL THERAPY EVALUATION Consult received, chart reviewed and evaluation complete this date. Patient is referred to PT for evaluation and treatment. Patient is a 69 year old female who presents to hospital for Sepsis [A41.9]. Discharge Recommendations: Therapy Needs and Potential: Patient would benefit from continued physical therapy services to address: decline in bed mobility decline in transfers decline in gait and/or balance decreased range of motion Challenges to Home Transition: increased risk of falls decreased safety awareness Equipment recommendations: standard walker Current Functional Status and/or Treatment: AM-PAC 6 Clicks (Raw Score 0=Dependent, 24=Independent; Low function Raw Score 0= Dependent, 32=Independent): Raw Score - Basic Mobility : 12 T-Scale Score - Basic Mobility : 32.23 Bed Mobility: Rolling: Supervision Bridging: Supervision Supine-sit: Supervision Sit to supine: Supervision Sitting balance Fair+ Pt leaning on head of bed while reclined during bed mobility activities Dizziness No Transfers: unable to tolerate due to Pain Pt was emotional due to pain and could not do transfer activities. Dizziness No Ambulation: patient unable to tolerate due to pain Pt was emotional due to pain and could not do transfer activities. Dizziness No Therapeutic exercise: patient educated in Deep breathing, Fall prevention, General strengthening, Relaxation/breathing techniques, Safety awareness, and WB restrictions. After session, patient supine in bed, No visitors present. Call button provided. PLAN OF CARE: While in the hospital, PT will follow patient at least 5 times per week,once or twice a day, per patient's tolerance and needs. See below for complete details. Admit Date: 11/21/2024 Hospital Diagnosis:Sepsis [A41.9] PT Diagnosis: Difficulty walking, Weakness, Pain, and Abnormality of gait and balance Weight Bearing Precaution: Touch down heel WB General Precautions: PPE used:Gloves, General, Fall Bracing/Cast present or required: Ankle bandage/dressing on R foot PMH: Past Medical History: Diagnosis Date Abnormal chest CT calcified granuloma 8mm RUL per chest CT 12/12/16, no f/u needed per Dr. Becerra Blood dyscrasia DM2 (diabetes mellitus, type 2) noton medications due to controlled. History of gangrene 2013 History of nocturia Hyperlipidemia Hypovitaminosis D 01/05/2018 Leiomyoma of uterus resolved ? in her 20's MSSA (methicillin susceptible Staphylococcus aureus) infection 07/30/2018 Pulmonary nodules 02/16/2019 RA (rheumatoid arthritis) Superficial thrombophlebitis Thyroid disease Urinary incontinence Urinary urgency PSH: Past Surgical History: Procedure Laterality Date ANGIOGRAM VIA LOWER EXTREMITY ACCESS (SHX) Left 10/16/2024 Surgeon: Luis Jay MD; [facility] ANGIOGRAM VIA LOWER EXTREMITY ACCESS (SHX) Bilateral 10/14/2024 Surgeon: Nader Casanova MD; [facility] BUNIONECTOMY Right 12/23/2018 Surgeon: Aayush Carlson Jr., DPM; [facility] DEBRIDEMENT LOWER EXTREMITY (SHX) Right 10/22/2024 Surgeon: Andrew Sena DO; Location: [facility] DEBRIDEMENT OF FINGER WOUND (SHX) 06/01/2014 FINGER AMPUTATION Left 06/06/2014 Surgeon: Sherice Clemons MD; [facility]: [facility] FINGER AMPUTATION 2016 Left Hand / middle finger HAND DEBRIDEMENT Left 06/01/2014 Surgeon: Sherice Clemons MD; [facility]: [facility] SHEN BUNION (SHX) Right 12/23/2018 Surgeon: Aayush Carlson Jr., DPM; Location: [facility] OR Location TOE AMPUTATION Left 10/16/2024 Surgeon: Luis Jay MD; Location: [facility] TOE AMPUTATION Right 10/22/2024 Surgeon: Andrew Sena DO; Location: [facility] TOTAL KNEE ARTHROPLASTY Left 02/15/2018 Surgeon: Parth Ibarra MD; [facility]: [facility] TOTAL KNEE ARTHROPLASTY Right 02/14/2019 Surgeon: Parth Ibarra MD; [facility] TRANSMETATARSAL AMPUTATION Right 11/23/2024 Surgeon: Luis Jay MD; Location: [facility] PRIOR LIVING SITUATION: lives with their family and in a house DME: Standard Walker Prior level of Mobility: ambulates with standard Walker Suspected ischemic or hemorraghic stroke:No Subjective: Pt complains of 10/10 pain of the R foot, Pt post surgical intervention of R foot secondary to infection. Patient/Family Goals: To go home Patient/Family verbalizes understanding of condition: Yes PAIN: -Pain rating before treatment: 10, After treatment: 10 COMMUNICATION Primary Language: Indonesian Able to Verbalize needs: Yes Vision:good; no issues reported Hearing:good; no issues reported ORIENTATION/COGNITION: Oriented to: person, place, and situation Awake: Yes Alert: Yes Dizzy: No Follows Commands: Yes 1-Step Yes Multi-Step Yes Inconsistent: No NEUROLOGICAL Light Touch: within functional limits bilateral LE BALANCE: Sitting: Static: Good Dynamic: Good Standing: Static: NT Dynamic: NT RANGE OF MOTION: deficit: R foot STRENGTH: 3/5 (F), R LE ENDURANCE: NT SKIN INTEGRITY: not intact, s/p surgical intervention of the R foot PROBLEM LIST: Decline in bed mobility, Decline in gait, Decline in transfers, Decreased strength, Decreased balance, ROM deficits, Weight bearing restrictions, Safety awareness deficits, and Pain ASSESSMENT: Patient is a 69 year old female seen secondary to the above listed diagnosis. Patient would benefit from continued PT to address the above listed deficits to maximize independence and safety with functional mobility. Rehabilitation Potential: guarded Goals: The following goals are to maximize independence and safety with functional mobility to eventually return to prior living situation and prior functional status. Upon discharge, patient and/or family will demonstrate the followin. Rolling: Independent Bridging: Independent Supine-sit: Independent Sit to supine: Independent Sitting balance Excellent Scooting to edge of bed: Independent 2. Sit to stand: Minimal Assistance using standard Walker Stand to sit: Minimal Assistance using standard Walker 3. Minimal Assistance with ambulation, Feet: 10 initially using least assistive device. Treatment Plan: Gait training, Therapeutic exercise, Transfer training, Balance training, Bed mobility training, and Safety education, patient/caregiver education PATIENT EDUCATION: Patient provided with preferred teaching of verbal information and demonstration on role of PT, plan of care, and goals. Shows readiness to learn. Verbal instruction and Demonstration teaching provided. Individual is able to read and verbalizes understanding of teaching provided. Total Time Tx Codes in Minutes: 20 min Total Treatment Time in Minutes: 25 min Charito Barrera PT [place] Lic No. [id number] [facility] Department of Physical Therapy [facility] 2024-11-21 17:43:12 SURGERY CONSULT NOTE Please refer to clinic note by Dr. Marcelo Palacio 11/21/24 for further details. In Brief: Inocencia Wu is a 69 year old female who underwent RLE SFA, peroneal and AT angioplasty + D2 amp and wound vac placement 10/16/24. Vascular Physical exam: BL PT and AT signals, R foot with purulent discharge, D3 very TTP Assessment/Plan Inocencia Wu is a 69 year old female who underwent RLE SFA, peroneal and AT angioplasty + D2 amp and wound vac placement 10/16/24 presenting to clinic with Rt foot purulent discharge. - Admit to medicine service - Initiate IV abx - Plan for OR 11/22/24 for debridement possible TMA - Consent deferred until 11/22 per patient preference - NPO past midnight [facility] General Surgery 11/21/2024 17:43 E NETWORK ENGINEER Associated attestation - Nader Casanova MD - 11/22/2024 5:49 PM VOICE NETWORK ENGINEER I was present and performed the physical exam on 11/21/2024 and discussed the care with the resident staff, Dr. Roland. I agree with the note as written and I participated in all of the [place] aspects of the decision making. Nader Casanova MD [facility] 2024-10-28 10:48:00 Associated Order(s): CONSULT ADULT PHYSICAL THERAPY Images from the original note were not included. Patient agreeable to working with physical therapy. Patient semireclining in bed and Heels offloaded? Yes Using pillows, No visitors present. Recommend nursing staff utilize 1 person assist with RW to safely assist patient with mobility out of the bed or chair. PHYSICAL THERAPY EVALUATION Consult received, chart reviewed and evaluation complete this date. Patient is referred to PT for evaluation and treatment. Patient is a 69 year old female who presents to hospital for 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]. HISTORY OF PRESENT ILLNESS Inocencia Wu is a 69 year old female who presents with discoloration of the second toe on the right foot. She also has an ulcer next to the great toe. The great toe also has some discoloration. Patient was seen by podiatry and sent into the emergency room for further evaluation. In the ER, patient was to be admitted for a questionable diabetic foot ulcer. However, patient normal blood sugar and a CT and there is a questionable history of diabetes. Patient had a arterial Doppler performed: BRIEF OPERATIVE NOTE Date of Surgery: 10/22/2024 Pre-Op Diagnosis: Peripheral arterial disease [I73.9] Post-Op Diagnosis Codes: * Peripheral arterial disease [I73.9] Procedures: Procedure(s) (LRB): DEBRIDEMENT LOWER EXTREMITY (Right) TOE AMPUTATION (Right) Discharge Recommendations: Therapy Needs and Potential: Patient would benefit from continued physical therapy services to address: decline in bed mobility decline in transfers decline in gait and/or balance decreased strength decreased range of motion decreased endurance decreased motor planning Patient demonstrates good potential to improve and meet therapy goals with further physical therapy services. Patient appears motivated to improve their functional mobility and return to their previous level of function. Patient demonstrates ability to tolerate atleast 30-60 minutes of physical therapy with active participation. Challenges to Home Transition: increased risk of falls decreased caregiver availability decreased safety awareness environmental barriers Equipment recommendations: rolling walker and wheelchair Current Functional Status and/or Treatment: AM-PAC 6 Clicks (Raw Score 0=Dependent, 24=Independent; Low function Raw Score 0= Dependent, 32=Independent): Raw Score - Basic Mobility : 17 T-Scale Score - Basic Mobility : 39.67 Bed Mobility: Rolling: Independent Sit to supine: Independent Supine to sit: Independent Scooting to edge of bed: Independent Analyzed transitional movements in bed. Pt educated on adaptations to NWB on LLE s/p toes amputation Pt noted increased pain with leg in dependent position however with slower movements allowed Pt to tolerate sitting EOB Dizziness No Transfers: Sit to stand: Supervision using RW Stand to sit: Supervision using RW Static/dynamic standing balance: Fair Verbal cueing provided for correct hand placement and correct use of AD Facilitated functional transfers using RW. Pt with increased anxiousness due to fear of pain. Pt educated on L knee flexion in standing to reduce dependent position pain Dizziness No Ambulation: patient unable to tolerate due to increased LLE pain, BLE muscle strength deficit, and decreased activity tolerance Dizziness No Therapeutic exercise: patient educated in Fall prevention, General strengthening, and Safety awareness., instructed patient in the following: ankle pumps, heel slides, hip abduction/adduction, long arc quads, seated marching, patient/caregiver instructed to perform HEP 3 times per day, 12 repetitions., patient/caregiver verbalizes understanding of instructions., and -cues provided for self pacing so as to promote proper quality of motion as well as target specific muscle groups for increased strength Functional Outcome Measures: (Values within the past 12 hours) FIST Test Item Used step/stool for positioning & foot support: No Anterior nudge: Independent Posterior nudge: Independent Lateral Nudge: Independent Static sitting: Independent Sitting, shake 'no': Independent Sitting, eyes closed: Independent supervisor paste mixing object from behind: Independent Forward reach: Upper extremity support Lateral reach: Upper extremity support supervisor paste mixing object from floor: dependent Posterior scooting: Upper extremity support Anterior scooting: Upper extremity support Lateral scooting: Upper extremity support FIST Total Score: 38 After session, patient semireclining in bed and Heels offloaded? Yes Using pillows, No visitors present. Call button provided. PLAN OF CARE: While in the hospital, PT will follow patient at least 3 times per week,once or twice a day, per patient's tolerance and needs. See below for complete details. Admit Date: 10/13/2024 Hospital Diagnosis: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] PT Diagnosis: Difficulty walking, Weakness, Malaise/fatigue, Pain, and Abnormality of gait and balance Weight Bearing Precaution: NWB, Left, LE General Precautions: General, Fall,Purewick catheter, IV x1, Wound VAC Bracing/Cast present or required:N/A PMH: Past Medical History: Diagnosis Date Abnormal chest CT calcified granuloma 8mm RUL per chest CT 12/12/16, no f/u needed per Dr. Becerra Blood dyscrasia DM2 (diabetes mellitus, type 2) noton medications due to controlled. History of gangrene 2013 History of nocturia Hyperlipidemia Hypovitaminosis D 01/05/2018 Leiomyoma of uterus resolved ? in her 20's MSSA (methicillin susceptible Staphylococcus aureus) infection 07/30/2018 Pulmonary nodules 02/16/2019 RA (rheumatoid arthritis) Superficial thrombophlebitis Thyroid disease Urinary incontinence Urinary urgency PSH: Past Surgical History: Procedure Laterality Date ANGIOGRAM VIA LOWER EXTREMITY ACCESS (SHX) Left 10/16/2024 Surgeon: Luis Jay MD; [facility] ANGIOGRAM VIA LOWER EXTREMITY ACCESS (SHX) Bilateral 10/14/2024 Surgeon: Nader Casanova MD; [facility] Right 12/23/2018 Surgeon: Aayush Carlson Jr., DPM; [facility] DEBRIDEMENT LOWER EXTREMITY (SHX) Right 10/22/2024 Surgeon: Andrew Sena DO; Location: [facility] DEBRIDEMENT OF FINGER WOUND (SHX) 06/01/2014 FINGER AMPUTATION Left 06/06/2014 Surgeon: Sherice Clemons MD; [facility]: [facility] FINGER AMPUTATION 2016 Left Hand / middle finger HAND DEBRIDEMENT Left 06/01/2014 Surgeon: Sherice Clemons MD; [facility] SHEN BUNION (SHX) Right 12/23/2018 Surgeon: Aayush Carlson Jr., DPM; [facility]: [facility] TOE AMPUTATION Left 10/16/2024 Surgeon: Luis Jay MD; Location: [facility] TOE AMPUTATION Right 10/22/2024 Surgeon: Andrew Sena DO; Location: [facility] LOC[facility] TOTAL KNEE ARTHROPLASTY Left 02/15/2018 Surgeon: Parth Ibarra MD; Location: [facility] TOTAL KNEE ARTHROPLASTY Right 02/14/2019 Surgeon: Parth Ibarra MD; Location: [facility] Location PRIOR LIVING SITUATION: lives alone and in a house, 3 SHAD c hand rail. Per patient report, upon discharge, pt will return to her daughter's house until she is well. This house in single story, 0 SHAD DME: Bed Side Commode, Single Point Cane Prior level of Mobility: community ambulation, house hold ambulation, ambulates with straight Cane, IND with no physical barriers Suspected ischemic or hemorraghic stroke:No Subjective: Pt stated she in a lot of pain despite the nurse recently giving her medicine Patient/Family Goals: I want to have less pain and go home Patient/Family verbalizes understanding of condition: Yes PAIN: -Pain Description: aching -Pain Location: left foot -Pain rating before treatment: 8, After treatment: 8 -Pain Management: Reports taking pain meds, Pain Meds given, Decreased movement aides in some pain reduction, Use of assistive device aides in pain reduction during mobility, and Repositioning Provided COMMUNICATION Primary Language: Indonesian Able to Verbalize needs: Yes Vision:good; no issues reported Hearing:good; no issues reported ORIENTATION/COGNITION: Oriented to: person, place, date/time, and situation Awake: Yes Alert: Yes Dizzy: No Follows Commands: Yes 1-Step Yes Multi-Step Yes Inconsistent: No NEUROLOGICAL Light Touch: deficit in L foot, otherwise, within functional limits bilaterally LE Heel to robertson: WNL Tone: WNL BALANCE: Sitting: Static: Fair Dynamic: Fair Standing: Static: Fair Dynamic: Fair RANGE OF MOTION: deficit: guarding in L ankle DF due to pain, otherwise, bilateral LE WNL STRENGTH: DNT L ankle strength due to acuity of surgery, otherwise, 4-/5 (G-), bilateral LE ENDURANCE: Fair, Room air SKIN INTEGRITY: Refer to nursing note for details, PROBLEM LIST: Decline in gait, Decline in transfers, Decreased strength, Decreased endurance, Decreased balance, ROM deficits, Weight bearing restrictions, Safety awareness deficits, Pain, and Decreased Motor Planning ASSESSMENT: Patient is a 69 year old female seen secondary to the above listed diagnosis. Patient would benefit from continued PT to address the above listed deficits to maximize independence and safety with functional mobility. Rehabilitation Potential: fair Goals: The following goals are to maximize independence and safety with functional mobility to eventually return to prior living situation and prior functional status. 1. Sit to stand: Independent using RW Stand to sit: Independent using RW Stand pivot transfer: Independent 2. Supervision with ambulation, Feet: 50 using least assistive device. 3. Pt will report reduced pain with mobility from 8/10 to at least 4/10 to improve physical performance. 4. Pt will tolerate sitting UIC for at least 2 hours/day to help optimize rehab potential. 5. Pt will be IND with home exercise program. Treatment Plan: Gait training, Therapeutic exercise, Transfer training, Balance training, Bed mobility training, Equipment needs assessment, Safety education, patient/caregiver education, Pain management, and Functional Motor Training PATIENT EDUCATION: Patient provided with preferred teaching of verbal information, written information, and demonstration on role of PT, plan of care, HEP. Shows readiness to learn. Verbal instruction and Demonstration teaching provided. Individual is able to read and verbalizes understanding of teaching provided, accurately returns demonstration of skill, needs reinforcement of teaching, and Indicates understanding of teaching provided. Total Time Tx Codes in Minutes: 25 min Total Treatment Time in Minutes: 40 min Garth Hawkins PT, DPT Physical Therapist License Number: [id number] [facility] 2024-10-28 09:28:00 Associated Order(s): CONSULT ADULT OCCUPATIONAL THERAPY OT GENERAL EVALUATION Consult received via [employer], EMR reviewed and evaluation completed 10/28/24. Patient referred to occupational therapy for evaluation and treatment secondary to Right 2ND Toe with cyanosis with ulceration & discoloration. Pt has had debridement with amputations to right great toe and 2nd toe. Patient agreeable to participate in occupational therapy. Patient found in semichair position in bed and Heels offloaded? No, No visitors present. Discharge Recommendations: Therapy Needs and Potential: - Patient would benefit from continued skilled occupational therapy services to address: Decline in basic activities of daily living, Decline in instrumental activities of daily living, Decreased coordination, and Caregiver training - Patient demonstrates good potential to improve and meet therapy goals with further skilled occupational therapy services. - Patient able to follow commands: 1-step Yes, Multi-step Yes, Inconsistencies No Challenges to Home Transition: - Requires physical assistance for BADLS - Requires physical assistance for IADLS - Requires supervision or verbal cues for BADLS - Requires supervision or verbal cues for IADLS - Limited caregiver availability - Increased risk of falls Equipment Recommendations:Tub transfer bench, Hand held shower, Long handled sponge, and Long handled white kid buffer PLAN OF CARE: At least 2x/week Precautions: Weight bearing status: NWB R LE General: PPE Utilized: Gloves and Surgical mask, Fall, IV, Purewick, and Wound Vac to RLE Bracing: Post-op surgical shoe has been ordered Subjective: "I don't feel so well today". Current Occupational Performance and/or Treatment: AM-PAC 6 Clicks (Raw Score 0=Dependent, 24=Independent; Low function Raw Score 0= Dependent, 32=Independent): Raw Score - Daily Activity: 14 T-Scale Score - Daily Activity: 33.39 Grooming: Moderate Assistance, wash face with washcloth, cleaned her ears also with setup sitting edge of bed. Patient would require mod to max assist for standing grooming tasks. UB Bathing: Moderate Assistance, sitting EOB washed her UB neck, and arms; declined to amb to sink. Patient would require mod to max assist for all bathing tasks within standard combo setup. LB Dressing: Maximum Assistance to danita & doff socks Toilet Transfer: Moderate Assistance, sit to stand using walker, did attempt to transfer, but decline to transfer; Functional Mobility: pt supine to to sit with min A; sat EOB unsupported;no c/o dizziness, c/o pain to right foot 2/10 prior to bed mobility; min A with bed mobility to get back into bed; req max A x2 to position /re-position in bed. Patient declined further transfers despite education and encouragement provided. Patient/caregiver educated on:Adaptive equipment , ADL training, Compensatory techniques/adaptive strategies, Energy conservation, Fall prevention, Positioning, Relaxation/breathing techniques, Role of OT, and Safety awareness Patient left semireclining in bed with call thomason in reach. No visitors present and R LE elevated. Please, see full evaluation below for more detail. OT EVALUATION: 69 year old female Admit date: 10/13/2024 Date of onset: 10/13/2024 Admit Diagnosis: 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] OT Diagnosis: Impaired BADL independence, Impaired IADL independence, Weakness, Activity intolerance, and Impaired self-care mobility PMH: Past Medical History: Diagnosis Date Abnormal chest CT calcified granuloma 8mm RUL per chest CT 12/12/16, no f/u needed per Dr. Becerra Blood dyscrasia DM2 (diabetes mellitus, type 2) noton medications due to controlled. History of gangrene 2013 History of nocturia Hyperlipidemia Hypovitaminosis D 01/05/2018 Leiomyoma of uterus resolved ? in her 's MSSA (methicillin susceptible Staphylococcus aureus) infection 07/30/2018 Pulmonary nodules 02/16/2019 RA (rheumatoid arthritis) Superficial thrombophlebitis Thyroid disease Urinary incontinence Urinary urgency PSH: Past Surgical History: Procedure Laterality Date ANGIOGRAM VIA LOWER EXTREMITY ACCESS (SHX) Left 10/16/2024 Surgeon: Luis Jay MD; [facility] ANGIOGRAM VIA LOWER EXTREMITY ACCESS (SHX) Bilateral 10/14/2024 Surgeon: Nader Casanova MD; [facility] B[facility] Right 12/23/2018 Surgeon: Aayush Carlson Jr., DPM; [facility] DEBRIDEMENT LOWER EXTREMITY (SHX) Right 10/22/2024 Surgeon: Andrew Sena DO; Location: [facility] DEBRIDEMENT OF FINGER WOUND (SHX) 06/01/2014 FINGER AMPUTATION Left 06/06/2014 Surgeon: Sherice Clemons MD; [facility]: [facility] FINGER AMPUTATION 2016 Left Hand / middle finger HAND DEBRIDEMENT Left 06/01/2014 Surgeon: Sherice Clemons MD; [facility] SHEN BUNION (SHX) Right 12/23/2018 Surgeon: Aayush Carlson Jr., DPM; [facility] TOE AMPUTATION Left 10/16/2024 Surgeon: Luis Jay MD; Location: [facility] TOE AMPUTATION Right 10/22/2024 Surgeon: Andrew Sena DO; Location: [facility] TOTAL KNEE ARTHROPLASTY Left 02/15/2018 Surgeon: Parth Ibarra MD; [facility] TOTAL KNEE ARTHROPLASTY Right 02/14/2019 Surgeon: Parth Ibarra MD; [facility] PAIN: Pain Location: right foot Pain rating before treatment: 2, After treatment: 10 Pain Management: Reports taking pain meds, Nursing Notified, and Repositioning Provided OCCUPATIONAL ROLES/HOME ENVIRONMENT: Home environment: Lives alone and Single story home; however, pt reports she will live with her daughter for a while, whom also resides in a single story home. Bathroom access: Yes Bathroom setup: [employer] Occupation(s): Retired Function prior to admission: Household ambulation, Community ambulation, Independent with BADLs, and Independent with IADLs Suspected ischemic or hemorraghic stroke patient: No Equipment prior to admission: Grab bars, Straight Cane PERFORMANCE SKILLS/FACTORS: UE Muscle Tone: bilateral WNL UE ROM: bilateral AROM WFL UE Strength: DARREN UE 4-/5 Hand dominance: right Dexterity/Coordination: bilateral Fine motor skills Intact Endurance - Sitting: Fair Standing: Poor Sitting Balance - Static: Good Dynamic: Fair+ Standing: Balance - Static Fair- Dynamic: Poor Dizziness: No Skin Integrity: defer full skin assessment to nursing, widespread redness and ecchymosis noted on pt abdominal area, and wound vac on Right foot; Sensation: bilateral Intact to light touch Oral Motor: Dentures Communication: Able to verbalize needs Yes Other: N/A Vision: WFL Yes Other: reading glasses Hearing: good; no issues reported COGNITION: Orientation: person, place, and date/time Follows Commands: 1-step Yes Multi-step Yes Inconsistencies Yes Safety Awareness/Judgment: Fair PROBLEM LIST: Decreased independence with B/IADL and Decreased strength/endurance for functional activity and Impaired self care mobility REHAB POTENTIAL/PROGNOSIS: good PATIENT/FAMILY GOALS: "I have never had to deal with this before. I want to get better and go home". TREATMENT/INTERVENTION PLAN: Patient/Caregiver Education, Equipment recommendations, Daily living activities, Therapeutic exercises GOAL(S): By discharge, patient will increase independence in daily living skills as follows: 1 Patient will perform toilet transfer with minimal assistance. 2 Patient will perform oral care with supervision while standing and complying with WB restrictions. 3 Patient will don/doff socks with moderate assistance using AE, as needed. 4 Patient will complete 2 grooming tasks with supervision while standing at the sink. 5 Patient will increase endurance for functional activity as evidenced by ability to sustain 15 minutes of active participation. 6 Patient/caregiver will verbalize/demonstrate understanding/proficiency in the following home programs: Adaptive equipment, Energy conservation, Fall prevention, General strengthening, Positioning 7 Patient will complete simulated tub/shower transfer with minimal assistance using adaptive equipment as needed. PATIENT-FAMILY TEACHING Patient provided with preferred teaching of verbal information and demonstration on Adaptive equipment , Compensatory techniques/adaptive strategies, Energy conservation, Fall prevention, General strengthening, Gross motor coordination, Positioning, Relaxation/breathing techniques, . Barriers to learning include emotional. Verbal instruction and Demonstration teaching provided. TARA Cardona OTD Pager #: [phone] Total Timed Treatment Codes: 10 Min Total Treatment Time: 32 Min Patient Complexity Level High - An occupational therapy evaluation of high complexity was completed using the above tests and measures. The following information was obtained: An occupational profile and medical and therapy history, including review of medical and/or therapy records and extensive additional review of physical, cognitive, or psychosocial history related to current functional performance, Various standardized and non-standardized assessments were used to identify at least 5 or more performance deficits related to physical, cognitive, or psychosocial skills that result in activity limitations and/or participation restrictions, and Clinical decision-making is of high analytic complexity, which includes an analysis of the patient profile, analysis of data from comprehensive assessment(s), and consideration of multiple treatment options. Patient present with comorbidities that affect occupational performance. Significant modification of tasks or assistance (e.g., physical or verbal) with assessment(s) is necessary to enable patient to complete evaluation component. [facility] 2024-10-27 12:49:09 Associated Order(s): CONSULT PODIATRY ADULT Podiatry Surgery Consult Note Date: 10/27/2024 HPI: Inocencia Wu is a 69 year old female pmh significant for HTN, HLD, DJD, RA present with right foot wound. Podiatry consulted for right foot wound. Patient s/p arteriogram on 10/16 and debridement with vascular on 10/22/25. ROS: General: denies fevers, chills, night sweats Pulm: denies cough, SOB, dypsnea on exertion Cards: denies chest pain, palpitations Neuro: denies slurred speech, vision changes, sensation changes, feelings of weakness HEENT: denies changes in vision, changes in hearing, difficulty swallowing GI: denies nausea, vomiting, melena : denies hematuria MSK: per HPI Skin: denies any rashes Endo: denies any unintended weight changes, denies feeling unusually hot or cold Allergies Allergen Reactions Doxycycline Nausea and/or Vomiting Sulfa (Sulfonamide Antibiotics) Nausea and/or Vomiting Bactrim Past Medical History: Diagnosis Date Abnormal chest CT calcified granuloma 8mm RUL per chest CT 12/12/16, no f/u needed per Dr. Becerra Blood dyscrasia DM2 (diabetes mellitus, type 2) noton medications due to controlled. History of gangrene 2013 History of nocturia Hyperlipidemia Hypovitaminosis D 01/05/2018 Leiomyoma of uterus resolved ? in her 20's MSSA (methicillin susceptible Staphylococcus aureus) infection 07/30/2018 Pulmonary nodules 02/16/2019 RA (rheumatoid arthritis) Superficial thrombophlebitis Thyroid disease Urinary incontinence Urinary urgency Past Surgical History: Procedure Laterality Date ANGIOGRAM VIA LOWER EXTREMITY ACCESS (SHX) Left 10/16/2024 Surgeon: Luis Jay MD; [facility] ANGIOGRAM VIA LOWER EXTREMITY ACCESS (SHX) Bilateral 10/14/2024 Surgeon: Nader Casanova MD; Location: [facility] OR LOCATION BUNIONECTOMY Right 12/23/2018 Surgeon: Aayush Carlson Jr., DPM; Location: [facility] DEBRIDEMENT LOWER EXTREMITY (SHX) Right 10/22/2024 Surgeon: Andrew Sena DO; Location: [facility] DEBRIDEMENT OF FINGER WOUND (SHX) 06/01/2014 FINGER AMPUTATION Left 06/06/2014 Surgeon: Sherice Clemons MD; [facility]: [facility] FINGER AMPUTATION 2016 Left Hand / middle finger HAND DEBRIDEMENT Left 06/01/2014 Surgeon: Sherice Clemons MD; Location: [facility] LOC[facility] SHEN BUNFAHEEM (SHX) Right 12/23/2018 Surgeon: Aayush Carlson Jr., DPM; [facility]: [facility] TOE AMPUTATION Left 10/16/2024 Surgeon: Luis Jay MD; Location: [facility] TOE AMPUTATION Right 10/22/2024 Surgeon: Andrew Sena DO; Location: [facility] LOC[facility] TOTAL KNEE ARTHROPLASTY Left 02/15/2018 Surgeon: Parth Ibarra MD; Location: [facility] TOTAL KNEE ARTHROPLASTY Right 02/14/2019 Surgeon: Parth Ibarra MD; Location: [facility] Location Social History Socioeconomic History Marital status: Single Spouse name: Not on file Number of children: 2 Years of education: Not on file Highest education level: Not on file Occupational History Occupation: retired Tobacco Use Smoking status: Former Smokeless tobacco: Never Tobacco comments: Quit smoking around 2011 Vaping Use Vaping status: Never Used Substance and Sexual Activity Alcohol use: Yes Comment: rare Drug use: No Sexual activity: Not Currently Partners: Male control/protection: Post-menopausal Other Topics Concern Not on file Social History Narrative Single, 2 kids Lives with daughter No domestic or physical violence within the home Hoahaoism Preference: [employer] Social Determinants of Health Financial Resource Strain: Not on file Food Insecurity: No Food Insecurity (10/16/2024) NCSS - Food Insecurity Worried About Running Out of Food in the Last Year: No Ran Out of Food in the Last Year: No Transportation Needs: No Transportation Needs (10/16/2024) NCSS - Transportation Lack of Transportation: No Physical Activity: Not on file Stress: Not on file Social Connections: Not on file Housing Stability: Not At Risk (10/16/2024) NCSS - Housing/Utilities Has Housing: Yes Worried About Losing Housing: No Unable to Get Utilities: No Physical Exam: BP 102/49 (BP Location: Right arm, Patient Position: Sitting) | Pulse 71 | Temp 36.4 ?C (97.6 ?F) (Skin) | Resp 20 | Ht 1.6 m (5' 3") | Wt 73.7 kg (162 lb 6.4 oz) | SpO2 95% | BMI 28.77 kg/m? Gen: patient alert and awake. Cooperative Head: Normocephalic. Eye:Extraocular Movements: Extraocular movements intact Pulm: breathing comfortably on room air Cards: regular rate and rhythm Neuro: No notable deficits HEENT: moist mucus membranes, eyes equal and round. EOM grossly intact GI: abdomen is soft and nontender : not examined MSK/EXT: lower extremity - full thickness ulcer to the right foot, ray amputation first - Motor intact TA/GS/EHL/FHL - Sensation grossly intact to light touch - palpable dorsalis pedis pulse LABS: CBC WBC x10 3 (/uL) Date Value 06/01/2014 8.6 WBC-LC (x10E3/uL) Date Value 01/22/2018 9.7 WHITE BLOOD CELL COUNT-Q (Thousand/uL) Date Value 11/02/2018 8.4 WBC (10*3/?L) Date Value 10/27/2024 11.25 (H) RBC x10 6 (/uL) Date Value 06/01/2014 4.20 RBC-LC (x10E6/uL) Date Value 01/22/2018 4.56 RED BLOOD CELL COUNT-Q (Million/uL) Date Value 11/02/2018 4.21 RBC (10*6/?L) Date Value 10/27/2024 2.64 (L) PLT x10 3 (/uL) Date Value 06/01/2014 336 Platelets-LC (x10E3/uL) Date Value 01/22/2018 297 PLATELET COUNT-Q (Thousand/uL) Date Value 11/02/2018 245 PLT (10*3/?L) Date Value 10/27/2024 222 HGB Date Value 10/27/2024 7.9 g/dL (L) 06/01/2014 11.9 G/DL Hemoglobin-LC (g/dL) Date Value 01/22/2018 13.8 HEMOGLOBIN-Q (g/dL) Date Value 11/02/2018 12.5 HCT (%) Date Value 10/27/2024 24.6 (L) 06/01/2014 37.0 Hematocrit-LC (%) Date Value 01/22/2018 42.1 HEMATOCRIT-Q (%) Date Value 11/02/2018 37.5 BMP NA Date Value 10/27/2024 140 mmol/L 06/05/2014 143 MMOL/L Sodium, Serum-LC (mmol/L) Date Value 01/22/2018 143 SODIUM-Q (mmol/L) Date Value 11/02/2018 142 K Date Value 10/27/2024 3.7 mmol/L 06/05/2014 4.2 MMOL/L Potassium, Serum-LC (mmol/L) Date Value 01/22/2018 4.2 POTASSIUM-Q (mmol/L) Date Value 11/02/2018 4.9 CALCIUM Date Value 10/27/2024 7.7 mg/dL (L) 06/05/2014 9.6 MG/DL Calcium, Serum-LC (mg/dL) Date Value 01/22/2018 9.5 CALCIUM-Q (mg/dL) Date Value 11/02/2018 9.1 CL Date Value 10/27/2024 111 mmol/L (H) 06/05/2014 103 MMOL/L Chloride, Serum-LC (mmol/L) Date Value 01/22/2018 96 CHLORIDE-Q (mmol/L) Date Value 11/02/2018 106 BUN Date Value 10/27/2024 12 mg/dL 06/05/2014 8 MG/DL BUN-LC (mg/dL) Date Value 01/22/2018 12 UREA NITROGEN (BUN)-Q (mg/dL) Date Value 11/02/2018 15 CREATININE Date Value 10/27/2024 0.60 mg/dL 06/05/2014 0.52 MG/DL Creatinine, Serum-LC (mg/dL) Date Value 01/22/2018 0.63 CREATININE-Q (mg/dL) Date Value 11/02/2018 0.61 GLUCOSE Date Value 10/27/2024 101 mg/dL 06/05/2014 88 MG/DL Glucose, Serum-LC (mg/dL) Date Value 01/22/2018 95 GLUCOSE-Q Date Value 11/02/2018 93 mg/dL 11/02/2018 NEGATIVE CO2 TOTAL Date Value 10/27/2024 26 mmol/L 06/05/2014 31 MMOL/L Carbon Dioxide, Total-LC (mmol/L) Date Value 01/22/2018 22 CARBON DIOXIDE-Q (mmol/L) Date Value 11/02/2018 29 Imaging: No final results containing an impression from the past 48 hours were found. Other studies: reviewed in chart Assessment: Inocencia Wu is a 69 year old female presenting with Right foot wound Plan: - Independently reviewed current and previous imaging for comparison, if applicable, as well as relevant lab results. I discussed my findings and educated patient on the condition present. All questions answered to patient's satisfaction. - All findings and diagnoses were discussed with patient at time of visit. Patient states they understand and are in agreement with the treatment plan at this time. -continue with aggressive wound care and wound vac -no podiatric surgical intervention Podiatry will sign off. Please reconsult with any podiatric concerns in this patient. We appreciate the opportunity to participate in this patient's care. This note was created using a voice-recognition transcribing system. Incorrect words or phrases may have been missed during proofreading. Please interpret accordingly. Sharda Buitrago DPM 10/27/2024 12:49 E NETWORK ENGINEER PO-ASSISTANT WRESTLING COACH STAFF [facility] 2024-10-17 12:02:30 Associated Order(s): CONSULT GASTROENTEROLOGY DEPARTMENT OF GASTROENTEROLOGY & HEPATOLOGY CONSULT NOTE Date of Service: 10/17/2024 Date of Admission: 10/13/2024 Requesting Physician: Waylon James DO Service: Surgery Reason for Consultation: Reason for consult - please give recommendation or opinion on: new diagnosis for Cirrhosis, consult for further evaluation Chief Complaint: cirrhosis History of Present Illness Inocencia Wu is a 69 year old /White female with past medical history of RA, who presents with complaints of right foot injury. The patient presented on 06/13 for evaluation of right foot wound. Patient notes she followed with podiatry as outpatient but for the past several weeks he had becoming larger. The patient underwent angiogram of lower extremity that revealed no significant aoto-iliac occlusive disease, patent R [employer] and R femoral bifurcation, nonocclusive stenosis of the R SFA, significant stenosis of proximal right AT, PT and peroneal arteries, complete occlusion of the proximal right AT, PT with high grade stenosis of the right peroneal which is the main feeding vessel to the foot, patient was transferred to [place] for revascularization of the right lower extremity. In [place] the patient underwent angiogram and R 2nd toe amputation. Patient underwent right peroneal angioplasty, right AT angioplasty, distal right SFA lesion angioplasty with a drug-coated balloon, and postangioplasty with no significant residual stenosis. The patient was followed by the surgical comanagement team, who noted spider veins on exam. FibroScan obtained revealed cirrhotic liver morphology, with splenomegaly and small volume ascites which could suggest portal hypertension. GI was consulted for evaluation of new diagnosis of cirrhosis. The patient reports drinking 6-12 beers on weekends, starting at age 15, but quit 8 years ago. Patient denies recreational drug use. Patient reported smoking 1 pack every 2 days for about 6 years and quit 8 years ago. She denies family history of liver disease. In the past was never told she had a liver condition. A month ago she noted veins in her chest and was told that it was due to liver condition. Patient denies prior hematemesis, episodes of confusion, or needing paracentesis. Denies prior EGD or colonoscopy. Patient takes fecal stool testing which have always been negative. Reports medical conditions of acid reflux and RA. Denies diagnosis of diabetes or other medical conditions. In the hospital blood pressure noted to be elevated so started her on nifedipine and losartan. Home medications are [place] 5 3 times daily, omeprazole, methotrexate for diagnosis of RA. Patient says she has a positive cholesterol and folic acid but has not been taking for the past year. PAST MEDICAL HISTORY Past Medical History: Diagnosis Date Abnormal chest CT calcified granuloma 8mm RUL per chest CT 12/12/16, no f/u needed per Dr. Becerra Blood dyscrasia DM2 (diabetes mellitus, type 2) noton medications due to controlled. History of gangrene 2013 History of nocturia Hyperlipidemia Hypovitaminosis D 01/05/2018 Leiomyoma of uterus resolved ? in her 's MSSA (methicillin susceptible Staphylococcus aureus) infection 07/30/2018 Pulmonary nodules 02/16/2019 RA (rheumatoid arthritis) Superficial thrombophlebitis Thyroid disease Urinary incontinence Urinary urgency PAST SURGICAL HISTORY Past Surgical History: Procedure Laterality Date BUNIONECTOMY Right 12/23/2018 Surgeon: Aayush Carlson Jr., DPM; Location: [facility] OR Location DEBRIDEMENT OF FINGER WOUND (SHX) 06/01/2014 FINGER AMPUTATION Left 06/06/2014 Surgeon: Sherice Clemons MD; Location: [facility] FINGER AMPUTATION 2016 Left Hand / middle finger HAND DEBRIDEMENT Left 06/01/2014 Surgeon: Sherice Clemons MD; Location: [facility] SHEN BUNFAHEEM (SHX) Right 12/23/2018 Surgeon: Aayush Carlson Jr., DPM; Location: [facility] OR Location TOTAL KNEE ARTHROPLASTY Left 02/15/2018 Surgeon: Parth Ibarra MD; Location: [facility] OR Location TOTAL KNEE ARTHROPLASTY Right 02/14/2019 Surgeon: Parth Ibarra MD; Location: [facility] OR Location FAMILY HISTORY Family History Problem Relation Age of Onset Arthritis Mother Arthritis Sister osteoarthritis Asthma NoFHx defects NoFHx Breast Cancer NoFHx Colon Cancer NoFHx Ovarian Cancer NoFHx Uterine Cancer NoFHx Cancer NoFHx Depression NoFHx Diabetes NoFHx Genetic NoFHx Heart NoFHx High cholesterol NoFHx Hypertension NoFHx Mental retardation NoFHx Neurological NoFHx Osteoporosis NoFHx Psychiatry NoFHx Other - see comments NoFHx ALLERGIES Allergies Allergen Reactions Doxycycline Nausea and/or Vomiting Sulfa (Sulfonamide Antibiotics) Nausea and/or Vomiting Bactrim MEDICATIONS: Reviewed REVIEW OF SYSTEMS: Per HPI PHYSICAL EXAM: Vitals: 10/16/24 2308 10/17/24 0355 10/17/24 0754 10/17/24 1021 BP: 117/64 109/53 (!) 143/72 (!) 152/76 BP Location: Right arm Right arm Right arm Right arm Patient Position: Supine Supine Sitting Supine Pulse: 77 68 77 81 Resp: Temp: 36.6 ?C (97.8 ?F) 36.4 ?C (97.5 ?F) 37.1 ?C (98.8 ?F) 36.7 ?C (98 ?F) TempSrc: Skin Skin SpO2: 96% 93% 96% 97% Weight: Height: Physical Exam Constitutional: General: She is not in acute distress. Appearance: She is not ill-appearing. Abdominal: General: There is no distension. Palpations: Abdomen is soft. Tenderness: There is abdominal tenderness. Comments: Left groin access site with compression dressing in place. Some distention and tenderness in left lower quadrant. Musculoskeletal: Right lower leg: No edema. Left lower leg: No edema. Comments: Right foot wrapped in gauze. Lower extremity with no edema. Skin: General: Skin is warm and dry. Coloration: Skin is not jaundiced. Neurological: Mental Status: She is alert and oriented to person, place, and time. LABORATORY: Latest Reference Range & Units 10/14/24 04:33 PROTIME 10.1 - 12.6 Seconds 13.3 (H) PT INR - 1.1 APTT 26 - 36 Seconds 33 Recent Labs 10/15/24 0440 10/16/24 0346 10/17/24 0416 WBC 4.54 4.91 8.37 HGB 9.9* 9.7* 8.7* HCT 29.2* 29.0* 26.3* PLT 149* 129* 132* Recent Labs 10/15/24 0023 10/15/24 0440 10/16/24 0346 10/17/24 0416 NA 140 -- 139 140 K 3.3* -- 3.9 3.7 CL 108 -- 114* 115* TCO2 25 -- 21* 23 BUN 9 -- 10 11 CREAT 0.44* -- 0.46* 0.52 GLU 125* -- 93 126* PHOS -- -- 3.2 3.3 MG -- 1.5* 1.6* 1.8 CA 8.3* -- 8.3* 8.1* Latest Reference Range & Units 12/24/17 10:05 12/24/17 10:12 04/26/18 15:06 07/26/18 10:15 12/20/18 16:05 08/18/19 11:44 03/10/23 15:34 10/13/24 12:58 10/15/24 00:23 ALK PHOS 34 - 122 U/L 46 45 68 53 58 48 62 69 69 ALTv 5 - 35 U/L 16 28 19 20 ALT(SGPT) 9 - 51 U/L 25 28 21 26 27 AST(SGOT) 13 - 40 U/L 24 25 28 27 28 26 30 37 42 (H) Latest Reference Range & Units 01/27/19 13:19 HBsAg Negative Negative HBsAg Semi-Quantitative 0.07 HCV Ab Negative HCV Semi-Quantitative 0.03 HIV 1,2 ABS Nonreactive Nonreactive Latest Reference Range & Units 06/30/17 14:00 PAOLO Negative Positive ! PAOLO T,IFA >=1:1280 RADIOLOGY: US ELASTOGRAPHY BASE FUNCT Result Date: 10/16/2024 The liver is 10.5 cm in length. The contour is subtly micronodular. No focal lesion is seen within exam limitations. The main portal vein is 0.7 cm in diameter and has patent hepatopetal flow. No biliary ductal dilatation is seen. The common duct is 0.3 cm in diameter. The gallbladder has a small volume of sludge and is otherwise unremarkable. A small volume of perihepatic free fluid is visualized. The spleen is enlarged at 13.5 cm. Liver Stiffness: Median 4.76 kPa; IQR/M: 32% Shear Wave Velocity: Median 1.24 m/s; IQR/M 17% IMPRESSION Cirrhotic morphology. Splenomegaly and small volume ascites which could suggest sequelae of portal hypertension in the appropriate clinical context. Elastography results show: Less than or equal to 5kPa(1.3m/sec)--- High probability of being normal Ref:: Society of radiologists in ultrasound liver elastography consensus statement : Radiology 2020: 296:263-274 Less than or equal to 5kPa(1.3m/sec)--- High probability of being normal Less than 9 kPa (1.7m/sec) --- In the absence of other clinical signs, rules out cACLD(compensated advanced chronic liver disease) 9-13 kPa (1.7-2.1m/sec) suggestive of cACLD but needs further testing for confirmation More than 13 kPa (2.1m/sec)-- Rules in cACLD More than 17 kPa (2.4m/sec)--suggestive of CPSH (clinically significant portal hypertension) CHART REVIEW: Esophagogastroduodenoscopy (EGD) Never Colonoscopy: Never ASSESSMENT and PLAN Inocencia Wu is a 69 year old female with PMH as listed above, GI consulted for: Cirrhosis Rheumatoid Arthritis (Dx 2017) Elastography revealed liver contour is subtly micronodular. No focal lesion is seen within exam limitations. The main portal vein has patent hepatopetal flow. Patient reports prior alcohol use (6-12 beers on weekends) for many decades which could have contributed to her current liver disease. Condition could also be from metabolic dysfunction given BMI greater than 27 and diagnosis of high blood pressure. Patient does have an autoimmune condition so autoimmune workup is warranted. Her RA medication: Methotrexate could be a causative agent, alf therapy has been linked to development of fatty liver disease, fibrosis and even cirrhosis. She has been taking Methotrexate 15mg weekly since 2017. In the past she was trailed on plaquenil 200mg PO BID. She felt the plaquenil made her sick so she stopped it. Will need input from rheumatology to see if an alternative medication can be trailed. This could be discussed in outpatient setting. Cirrhosis appears to be compensated, there is no episodes of hematemesis, but no prior EGD. No episodes of altered mentation, and patient not on lactulose. No prior episodes of paracentesis and ultrasound reveals minimal ascites. Cirrhosis Etiology: pending studies Ascites: small volume of perihepatic Encephalopathy: none Varices: no prior EGD SBP: no prior episodes HCC Screening: pending AFP, no lesion seen on US Immunity screening: Colon Cancer Screening: Never colonoscopy, negative stool screens Transplant Candidacy: To be discussed in follow up clinic visit MELD 3.0: 9 at 10/16/2024 3:46 AM MELD-Na: 7 at 10/16/2024 3:46 AM Calculated from: Serum Creatinine: 0.46 mg/dL (Using min of 1 mg/dL) at 10/16/2024 3:46 AM Serum Sodium: 139 mmol/L (Using max of 137 mmol/L) at 10/16/2024 3:46 AM Total Bilirubin: 0.7 mg/dL (Using min of 1 mg/dL) at 10/15/2024 12:23 AM Serum Albumin: 3.0 g/dL at 10/15/2024 12:23 AM INR(ratio): 1.1 at 10/14/2024 4:33 AM Age at listing (hypothetical): 69 years Sex: Female at 10/16/2024 3:46 AM Recommendations: -AFP -Anti-mitochondrial Ab, IgM -PAOLO and Anti-smooth muscle, Anti-LKM-1 if IBD -Gammaglobulin -Ferritin and Transferrin -Serum ceruloplasm -Serum Alpha-antitrypsin -RUQ with dopplers -Recommend a low-salt diet less than 2 g daily -Patient will need outpatient follow-up for EGD upon discharge -Pt will need to discuss methotrexate with natural gas trader as this medication can be a culprit Patient seen and examined with Gastroenterology faculty, Dr. Whitley Elda Jones M.D. Department of Gastroenterology and Hepatology, PGY-4 E NETWORK ENGINEER Associated attestation - Letha Whitley MD - 10/22/2024 11:17 AM VOICE NETWORK ENGINEER After discussion with Dr. Jones I personally saw and examined the patient on 10/17/24 with her. I participated in the decision making process. I agree with her assessment and plan. [facility] 2024-10-15 11:58:02 Associated Order(s): CONSULT SURGICAL CO-MANAGEMENT (SCM) Images from the original note were not included. [facility] Division of General Medicine Surgical Co-Management Hospitalist (SCM) Consult Service Initial Preoperative Consultation Note Patient: Inocencia Wu Date of Consult: 10/15/2024 Referring Physician: Nader Casanova Reason for Consult: Perioperative risk assessment and medical optimization/co-management Proposed Surgery, Date: Surgical and Procedural Summary Unscheduled Procedures Date Time Procedure/Visit Type Providers Loc / Dept Status Not Scheduled HAMMERTOE CORRECTIONEXCISION BONE FOOT [facility] OR LOCATION Not [place] Length (minutes): 108 Not Scheduled ANGIOGRAM VIA LOWER EXTREMITY ACCESSTOE AMPUTATION [facility] OR LOCATION Not [place] Length (minutes): 227 Chief Complaint / Reason for Hospital Admission: Toe infection HPI: Inocencia Wu is a 69 year old female with PMHX of RA on MTX, HTN, HLD, DJD s/p knee replacement, hypoothyroid, medication non compliance, former smoker- stopped 9y ago who presents with discoloration of the second toe on the right foot and non healing toe ulcer. Has been on going fora few weeks, reports 1st started agter wearing tight tennis shoes. Patient was seen by podiatry and sent into the emergency room for further evaluation, seen at [facility]. Seen by vascualr surgery and transferred to [facility] due to concern for CLI, angiogram done showed " Significant stenosis of the proximal right AT, PT and peroneal arteries, Complete occlusion of the proximal right AT, PT with high grade stenosis of the R peroneal which is the main feeding vessel to the foot, Sluggish filling of the plantar arch through R peroneal. " Pt admitted to vascular service for further management,s cm consulted for medical management and pre-op eval. Medical Issues Include: Patient Active Problem List Diagnosis Date Noted Toe infection 10/13/2024 Peripheral arterial disease 10/13/2024 Pain of toe of right foot 09/20/2024 Pulmonary nodules 02/16/2019 Total knee replacement status 02/14/2019 Arthritis of right knee 11/26/2018 Added automatically from request for surgery [id number] Arthritis of knee 11/26/2018 Added automatically from request for surgery [id number] MSSA (methicillin susceptible Staphylococcus aureus) infection 07/30/2018 Skin (recurrent), pharynx Screening for colorectal cancer 03/10/2018 Added automatically from request for surgery [id number] S/P total knee arthroplasty, left 02/26/2018 Degenerative joint disease 02/17/2018 Obesity (BMI 30-39.9) 02/15/2018 Mixed hyperlipidemia Severe obesity (BMI 35.0-35.9 with comorbidity) 02/02/2018 Urinary incontinence, overflow 02/02/2018 Left knee pain, unspecified chronicity 01/29/2018 Hypovitaminosis D 01/05/2018 Long-term use of Plaquenil 01/05/2018 Pain 11/27/2017 Added automatically from request for surgery [id number] Positive PAOLO (antinuclear antibody) >1:1280, +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/Centromere 07/01/2017 Overlap syndrome 06/30/2017 Chronic pain of both knees 03/10/2017 Immunization counseling 03/10/2017 Therapeutic drug monitoring 03/10/2017 Rheumatoid arthritis involving multiple sites with positive rheumatoid factor: diagnosed 2014; +RF/CCP 01/28/2017 terminal gauger current use of systemic steroids 01/28/2017 At risk for bone density loss 01/28/2017 Screening for HIV (human immunodeficiency virus) 01/28/2017 Bone pain 01/28/2017 Swelling of both hands 01/28/2017 DM2 (diabetes mellitus, type 2) 01/15/2017 GERD (gastroesophageal reflux disease) 10/20/2016 Acquired hypothyroidism 09/08/2016 Rheumatoid arthritis involving both knees 09/08/[address] 09/08/2016 Followed by Corrugator Machine Operator in [place]. In Addition: The patient does not have a history of complications with anesthesia or bleeding with prior surgeries. The patient does not have a history of venous thrombosis / pulmonary embolism Transfusion History: None RELEVANT HISTORIES, after chart review (personally reviewed by me): Active Ambulatory Problems Diagnosis Date Noted Acquired hypothyroidism 09/08/2016 Rheumatoid arthritis involving both knees 09/08/[address] 09/08/2016 GERD (gastroesophageal reflux disease) 10/20/2016 DM2 (diabetes mellitus, type 2) 01/15/2017 Rheumatoid arthritis involving multiple sites with positive rheumatoid factor: diagnosed 2014; +RF/CCP 01/28/2017 terminal gauger current use of systemic steroids 01/28/2017 At risk for bone density loss 01/28/2017 Screening for HIV (human immunodeficiency virus) 01/28/2017 Bone pain 01/28/2017 Swelling of both hands 01/28/2017 Chronic pain of both knees 03/10/2017 Immunization counseling 03/10/2017 Therapeutic drug monitoring 03/10/2017 Overlap syndrome 06/30/2017 Positive PAOLO (antinuclear antibody) >1:1280, +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/Centromere 07/01/2017 Pain 11/27/2017 Hypovitaminosis D 01/05/2018 Long-term use of Plaquenil 01/05/2018 Left knee pain, unspecified chronicity 01/29/2018 Severe obesity (BMI 35.0-35.9 with comorbidity) 02/02/2018 Urinary incontinence, overflow 02/02/2018 Mixed hyperlipidemia Obesity (BMI 30-39.9) 02/15/2018 Degenerative joint disease 02/17/2018 S/P total knee arthroplasty, left 02/26/2018 Screening for colorectal cancer 03/10/2018 MSSA (methicillin susceptible Staphylococcus aureus) infection 07/30/2018 Arthritis of right knee 11/26/2018 Arthritis of knee 11/26/2018 Total knee replacement status 02/14/2019 Pulmonary nodules 02/16/2019 Pain of toe of right foot 09/20/2024 Resolved Ambulatory Problems Diagnosis Date Noted Abscess 05/31/2014 Leukocytosis 09/15/2016 Past Medical History: Diagnosis Date Blood dyscrasia History of gangrene 2013 History of nocturia Hyperlipidemia Leiomyoma of uterus RA (rheumatoid arthritis) Superficial thrombophlebitis Thyroid disease Urinary incontinence Urinary urgency Past Surgical History: Procedure Laterality Date BUNIONECTOMY Right 12/23/2018 Surgeon: Aayush Carlson Jr., DPM; [facility] [place] DEBRIDEMENT OF FINGER WOUND (SHX) 06/01/2014 FINGER AMPUTATION Left 06/06/2014 Surgeon: Sherice Clemons MD; [facility] [place] FINGER AMPUTATION 2016 Left Hand / middle finger HAND DEBRIDEMENT Left 06/01/2014 Surgeon: Sherice Clemons MD; [facility]: [facility] SHEN BUNION (SHX) Right 12/23/2018 Surgeon: Aayush Carlson Jr., DPM; Location: [facility] TOTAL KNEE ARTHROPLASTY Left 02/15/2018 Surgeon: Parth Ibarra MD; Location: [facility] [place] TOTAL KNEE ARTHROPLASTY Right 02/14/2019 Surgeon: Parth Ibarra MD; Location: [facility] OR Location Home medications: Prior to Admission medications Medication Sig Start Date End Date Taking? Authorizing Provider omeprazole 40 mg capsule Take 1 capsule by mouth in the morning. Doctor Unassigned, [place] ATORVASTATIN 10 mg tablet TAKE 1 TABLET BY MOUTH EVERYDAY AT BEDTIME 08/19/19 Dennis Perez MD Ibuprofen 200 mg capsule Take by mouth. Doctor Unassigned, [place] HYDROcodone-acetaminophen 10-325 mg tablet Take 1 tablet by mouth every 4 (four) hours as needed for Pain (scale 4-6). 02/15/19 Luc[facility] Ma, levothyroxine 50 mcg tablet Take 1 tablet by mouth every morning. 12/20/18 Dennis Perez MD methotrexate 2.5 mg tablet TAKE 8 TABLETS BY MOUTH ONCE WEEKLY 10/05/18 Winnie Barrientos MD Current Medications: Scheduled meds: [START ON 10/16/2024] NIFEdipine ER, 30 mg, DAILY aspirin, 162 mg, DAILY gabapentin, 100 mg, TID heparin (porcine) 5,000 units subcutaneous injection, 5,000 Units, Q12H levothyroxine, 50 mcg, QAM-0600 Lidocaine, 1 Patch, ONCE pantoprazole, 40 mg, DAILY polyethylene glycol 3350, 17 g, QAM rosuvastatin, 10 mg, DAILY insulin lispro (human), , TID MEALS+HS vancomycin Peripheral Line IV Piggyback, 15 mg/kg, Q12H ABX vancomycin placeholder: dosing by pharmacy, , RX Placeholder cadexomer iodine, , DAILY ceFEPIme (MAXIPIME) IV Piggyback, 1,000 mg, Q8H ABX IV meds: PRN meds: acetaminophen, 500 mg, Q6HPRN HYDROcodone-acetaminophen, 1 tablet, Q6HPRN morphine injection, 2 mg, Q4HPRN dextrose 50 % in water (D50W), 25 mL, PRN fentanyl PF, 25 mcg, Q4HPRN glucagon, 1 mg, PRN heparin 5,000 unit/mL 1,000 Units in NaCl 0.9% (NS) 1,000 mL OR irrigation, , PRN hydralAZINE, 10 mg, Q4HPRN iohexoL, , PRN labetaloL, 10 mg, Q4HPRN lidocaine 1% (PF), , PRN ondansetron, 4 mg, Q6HPRN ALLERGIES Allergies Allergen Reactions Doxycycline Nausea and/or Vomiting Sulfa (Sulfonamide Antibiotics) Nausea and/or Vomiting Bactrim REVIEW OF SYSTEMS All systems negative except as otherwise stated in HPI PHYSICAL EXAM Temperature over last 24 hours: Temp (24hrs), Av.5 ?C (97.7 ?F), Min:36.1 ?C (96.9 ?F), Max:37.2 ?C (99 ?F) Vitals: 10/15/24 0025 10/15/24 0431 10/15/24 0819 10/15/24 1144 BP: (!) 164/74 121/47 (!) 142/77 (!) 169/80 BP Location: Right arm Left arm Right arm Patient Position: Sitting Lying right side Supine Pulse: 83 72 76 71 Resp: 16 18 14 Temp: 36.9 ?C (98.4 ?F) 36.7 ?C (98 ?F) 37.2 ?C (99 ?F) 36.4 ?C (97.5 ?F) TempSrc: Tympanic Tympanic SpO2: 92% 94% 94% 98% Weight: Height: Physical Exam Vitals reviewed. Constitutional: General: She is not in acute distress. Appearance: She is obese. HENT: Nose: No congestion. Mouth/Throat: Mouth: Mucous membranes are moist. Pharynx: Oropharynx is clear. Eyes: Pupils: Pupils are equal, round, and reactive to light. Neck: Comments: No JVP elevation Cardiovascular: Rate and Rhythm: Normal rate and regular rhythm. Pulses: Normal pulses. Heart sounds: No murmur heard. Pulmonary: Effort: Pulmonary effort is normal. No respiratory distress. Breath sounds: No wheezing. Comments: Spider angiomas noted on chest wall Abdominal: General: Bowel sounds are normal. Palpations: Abdomen is soft. Tenderness: There is no abdominal tenderness. There is no guarding. Musculoskeletal: General: Tenderness (right cutter tender with tenderness on ROM) present. Normal range of motion. Cervical back: Normal range of motion. No rigidity. Right lower leg: No edema. Left lower leg: No edema. Comments: LLE pulses felt and symmetric RLE, reduced pulses Skin: Capillary Refill: Capillary refill takes less than 2 seconds. Findings: Erythema and lesion (right foot second toe dry gangrene with ulcer on the medial side with necrotic base, erythema and swelling of the foot.) present. Neurological: General: No focal deficit present. Mental Status: She is alert and oriented to person, place, and time. Mental status is at baseline. Cranial Nerves: No cranial nerve deficit. Psychiatric: Mood and Affect: Mood normal. Behavior: Behavior normal. Thought Content: Thought content normal. Patient Lines/Drains/Airways Status Active LDAs Name Placement date Placement time Site Days Peripheral IV 10/14/24 Inferior;Right Arm Ultrasound not used 10/14/24 -- Arm 1 Peripheral IV 10/15/24 0025 Left;Superior;Anterior Arm Ultrasound Used 10/15/24 0025 Arm less than 1 Wound 09/20/24 0700 [place]/Blister Toe - 2nd digit Anterior;Right;Medial blsters noted to right second toe medial 09/20/24 0700 Toe - 2nd digit 25 Wound 10/13/24 1750 Diabetic/Neuropathic Ulcer Toe - 2nd digit Anterior;Right 10/13/24 1750 Toe - 2nd digit 1 Wound 10/14/24 1419 Surgical - Incision/Wound Groin Left Angioseal closure device deployed in Left groin at 1249. 10/14/24 1419 Groin less than 1 LABS/IMAGING - reviewed: Recent Labs 10/13/24 1258 10/15/24 0440 WBC 5.26 4.54 HGB 10.5* 9.9* HCT 33.1* 29.2* PLT 165* 149* Recent Labs 10/13/24 1258 10/15/24 0023 10/15/24 0440 NA 142 140 -- K 3.7 3.3* -- CL 110* 108 -- TCO2 28 25 -- BUN 14 9 -- CREAT 0.53 0.44* -- GLU 86 125* -- MG -- -- 1.5* CA 9.0 8.3* -- Recent Labs 10/14/24 0433 PTPAT 13.3* PTINR 1.1 APTTPAT 33 Lab Results Component Value Date/Time GLU 125 (H) 10/15/2024 12:23 AM POC GLU 110 10/15/2024 11:46 AM POC GLU 103 10/15/2024 09:04 AM Most Recent UA: No results for input(s): "UPH", "UPROTEIN", "UGLUCOSE", "UKETONES", "UBILI", "UBLOOD", "UUROBILIN", "ULEUKEST", "UNITRITE", "USPGRAV" in the last 72 hours. Radiology (48 HRS): XR Foot 3+ vw right Result Date: 10/13/2024 The wound is not well-characterized on radiograph. No focal bone destruction to indicate osteomyelitis. End of Report Cardiographics (if applicable): ECG: Echo: Stress Test: CXR: PERIOPERATIVE RISK ASSESSMENT CALCUATIONS: All from [employer] except RCRI (qxmd), calculated today unless stated otherwise Functional Status/Dooley Activity Score Index: Dooley Activity Status Index (DASI) from [employer] on 10/15/2024 All calculations should be rechecked by clinician prior to use RESULT SUMMARY: 23.45 points The higher the score (maximum 58.2), the higher the functional status. 5.62 METs INPUTS: Take care of self --> 2.75 = Yes Walk indoors --> 1.75 = Yes Walk 1&ndash;2 blocks on level ground --> 2.75 = Yes Climb a flight of stairs or walk up a hill --> 5.5 = Yes Run a short distance --> 0 = No Do light work around the house --> 2.7 = Yes Do moderate work around the house --> 3.5 = Yes Do heavy work around the house --> 0 = No Do yardwork --> 4.5 = Yes Have sexual relations --> 0 = No Participate in moderate recreational activities --> 0 = No Participate in strenuous sports --> 0 = No RCRI (Gee Index): Results for Revised Cardiac Risk Index (Rafy Criteria) by [employer] Estimated Risk of Adverse Outcome with Non-cardiac Surgery: Low Risk Estimated Rate of Myocardial Infarction, Pulmonary Edema, Ventricular Fibrillation, Cardiac Arrest, or Complete Heart Block: 0.9 % Answers calculated to formulate result: 1. High Risk Surgery? -- Yes 2. Coronary Artery Disease? -- No 3. Congestive Heart Failure? -- No 4. Cerebrovascular Disease? -- No 5. Diabetes Mellitus on Insulin? -- No 6. Serum Creatinine >2 mg/dl or >177 ?mol/L? -- No October 15, 2024 at 11:59 Calculated at: [email or web address] Get Calculate by [employer] for iOS, Android and web at [email or web address] Sherie Perioperative Risk of NC or Cardiac Arrest: AUB-HAS2 Cardiac Calculator: STOP BANG (ESLENA): ARISCAT: ASSESSMENT & PLAN: Acute & chronic hospital conditions being addressed/managed/considered: Principal Problem: Toe infection Active Problems: Peripheral arterial disease Inocencia Wu is a 69 year old year old female is seen for perioperative risk assessment and medical optimization prior to surgery. Per 2024 AHA/ACC Guidelines for Preoperative CV Management for Noncardiac surgery: Surgery is deemed: Urgent (Threat to life or limb, Time to surgery 2 to 24 hours) Surgical risk is deemed: High Risk (examples: Vascular/Thoracic/Transplant/Randolph roSx) The patient has the following cardiovascular risk modifiers: NONE The patient has the following that may increase general perioperative risk: High risk surgical procedure Recommendations: Based on our assessment and experience, the patient's functional status is average for their age and gender. For cardiovascular risk assessment, per the 2024 AHA/ACC guidelines, MACE <1%, Low risk: Proceed as scheduled without further testing or consultation Other risks include: uncontrolled BP, hx of smoking, hypothyroid, RA Recommend preoperative NT-proBNP: No Recommend Post operative Troponin surveillance at 24h and 48h post op: No Overall, the patient is considered Normal (Baseline) Risk for perioperative complications for the planned procedure. Therefore, Inocencia Wu is considered medically optimized for the planned procedure: Yes SURGICAL TEAM TO DOS: Per CARP trial " https://www.nejm.org/doi/full/10 .1056/RXMHbx931251" no benefit for performing LHC and revascularization prior to vascular surgery if there is no active cardiac symptoms, at this time she does not need further cardiac testing, for surgical clearance, but due to her significant PAD and CLI, post op would advise cardiology consult for eval with stress testing and if positive to consider LHC for further evaluation. OPTIMIZATION RECOMMENDATIONS: High blood pressure; never been on meds, noted sig elev BP on admission, start on nifedipine 30 mg ER, Avoid BB due to her hx of bradycardia Post op consider starting on SEVEN/ARB- prefer losartan 25 mg daily, for now maintain MAPs > 65, will reid optimize pain post op to prevent elevation of BP. Abx per primary team DVT prophylaxis per primary C/w ASA and statin- check lipid profile- LDL goal < 70 Check A1c- is 5.1, ok to stay on regular diet post op Hypothyroid; check TSH and c/w home levothyroxine Hx of RX: is on MTX is on 20 mg weekly- continue once have control of infection, start on folic acid repletion 5 mg weekly to be taken on different day from MTX post op Anemia; check iron, b12, folate, ferritin Spider veins noted on exam; possible ABRAMS, she has no other features of stigmata of liver dse. US abdomen done 01/14/23 showed no sig liver abnormality but limited eval due to body habitus. Order fibroscan for eval, LFTs, albumin and PT/INR w/o significant abnormalities, denies sig alcohol, acetaminophen or salicylate use. Concern for CAD; Stress test post op as above- consult cards for follow up. Will continue to follow post Op DVT Prophylaxis: Per Primary Code Status: Dispo: Medical/Social Barriers to discharge & follow-up: Lambert Mosqueda MD Portions of this note were created using a voice-recognition transcribing system. Typographical errors and incorrect words or phrases may have been missed during proofreading. Please interpret accordingly. E NETWORK ENGINEER [facility] 2024-10-14 22:33:38 Associated Order(s): CONSULT VASCULAR SURGERY Vascular Surgery Consult Note Please see Consult Note by Dr. Pablo Mcqueen on 10/13/24 for details. Jeffery Alexander MD Vascular Surgery PGY-4 E NETWORK ENGINEER Associated attestation - Luis Jay MD - 10/18/2024 12:23 PM VOICE NETWORK ENGINEER Agreed [facility] 2024-10-13 18:14:00 Associated Order(s): CONSULT VASCULAR SURGERY Images from the original note were not included. VASCULAR SURGERY CONSULT NOTE Reason for consult: foot ulcer Consulting physician: Waylon James, DO HPI This is a 69-year-old female currently admitted for a nonhealing right foot ulcer in the medial surface of her second toe. She was seen in this hospital in August for an abscess in that same spot which was debrided by podiatry on 09/16/[address] Michele. The patient followed up with him outpatient, and the wound seemed to be getting worse. She was sent to the [facility] ED for evaluation due to a concern of tissue necrosis. She was admitted from the emergency department and started on IV cefepime. Denies fever, chills, previous sores, and claudication symptoms. Does not take blood thinners. 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 WBI's were performed at the time and where normal. PMH: Diet-controlled NIDDM, rheumatoid arthritis on methotrexate, hypothyroidism PSH: Bunionectomy on the right foot in 2019, left middle finger amputation in 2014, bilateral total knee arthroplasties (left in 2018, right in 2019) SH: Previous 1 pack a day smoker for 9 years, quit 9 years ago. Denies current alcohol use, drug use. She is retired and lives alone with a dog in [place]. Functionally independent. Allergies: Denies allergies, nausea and vomiting with doxycycline and Bactrim per the chart Physical exam General: Mild acute distress due to pain HEENT: NCAT, neck supple Chest: Unlabored breathing on room air, CTAB Cardiac: RRR, no murmurs or rubs Abdomen: Soft, nontender, nondistended Extremities: No distal peripheral edema, erythema and tenderness on second right toe, significant erythema on right great toe. Ulcer on medial surface of right second toe with dry apparently necrotic borders Vascular: No carotid bruits, palpable radial pulses bilaterally, palpable femoral pulses bilaterally, right DP and PT nonpalpable with monophasic Doppler signals on right DP and biphasic on right PT and AT. Left PT pulse palpable, multiphasic left DP and AT Doppler signals. Neuro: ANO x 4 moving all extremities, nonfocal Labs Reviewed. Normal WBC count 5.26 Hb 10.5 anemia, normochromic normocytic PLT 165 ESR 73 elevated No clinically significant abnormals on the BMP or electrolytes. Creatinine 0.53, at baseline Radiology X-ray right foot Reviewed. No soft tissue gas or focal bone destruction indicating osteomyelitis. Present orthopedic hardware Vascular labs Lower extremity arterial duplex report reviewed Occlusion of bilateral distal DPs, but patent right proximal DP and AT. 50 to 75% stenosis of right peroneal. Diffuse calcified plaque in arteries of left lower extremity. Assessment and plan This is 69-year-old female with significant past medical history of NIDDM, RA, hypothyroidism with a nonhealing wound of the second right toe. Vascular exam and vascular labs show evidence of peripheral arterial disease which could contribute to impaired wound healing. The patient potentially benefit from diagnostic arteriogram to evaluate disease anatomy and identify possible targets for intervention. -Case request submitted for lower extremity arteriogram with possible intervention tomorrow 10/14/[address] Casanova. Benefits, risks, alternatives were discussed with the patient. All questions were answered. Consent signed and in chart -N.p.o. past midnight for procedure -Continue wound care per podiatry -Continue antibiotics and pursue further diagnostic workup for osteomyelitis per primary team. Celestine Chatman? MD Charisse PGY- 2 General Surgery E NETWORK ENGINEER Associated attestation - Nader Casanova MD - 10/24/2024 9:11 AM VOICE NETWORK ENGINEER I was present and performed the physical exam on 10/13/2024 and discussed the care with the resident staff, Dr. Shah. I agree with the note as written and I participated in all of the hatfield aspects of the decision making. Nader Casanova MD [facility] 2024-10-13 00:01:00 CHIEF COMPLAINT/HISTORY OF PRESENT ILLNESS: The patient was admitted through the ED upon my referral from my office today. Patient presented for followup of right 2nd digit ulceration. She presented to my office with a gangrenous right 2nd toe. States that it has been that way for 5 days. I had seen her 7 days ago and the toe was viable at the time, had a granular base ulceration. The patient did not present to my office upon the toe worsening. Patient was sent to the ER here at [facility] and admitted. PAST MEDICAL HISTORY: Significant for diabetes mellitus, hyperlipidemia PAST SURGERIES: Unremarkable. ALLERGIES: Doxycycline and sulfa. SOCIAL HISTORY: Patient states she quit smoking in 2011. PHYSICAL EXAMINATION: LOWER EXTREMITIES: Reveals nonpalpable pedal pulses of the right lower extremity. NEUROLOGIC: Diminished proprioceptive and protective sensations bilaterally. ORTHOPEDIC: Within normal limits. DERMATOLOGIC: Reveals gangrene of the right 2nd toe and distal hallux with erythema of the dorsum of the right forefoot. There is an ulceration noted at the medial aspect of the right 2nd toe with necrotic base. PERTINENT LABORATORY DATA: White blood cell count on admission of 5.26. Arterial Dopplers performed. The right lower extremity reveals scattered hard calcified plaques in all visualized arteries. The right mid and bilateral distal posterior tibial arteries are occluded. The right proximal peroneal artery is 50% to 75% stenosed. ASSESSMENT: Wong grade 4 ulceration, right 2nd toe. PLAN: 1. Iodosorb to the wound. 2. Vascular has been consulted. Will await their input. 3. Will follow. Aayush Carlson DPM RS/MODL J#: [id number] E NETWORK ENGINEER PO-ASSISTANT WRESTLING COACH STAFF [facility] - Health History and Physical Notes Date/Time Note Provider Source 2024-12-23 12:58:44 Vascular Surgery H&P Update 12/23/2024 Inocencia Wu is a 69 year old female patient who presents for R TMA debridement and arteriogram with possible angioplasty, stenting, possible deep venous arterialization. The patient was seen and examined in preop. Since last being seen in clinic, the patient has been doing well with no interval health changes. Properly NPO. Signed consent is located inside the chart. Risks, benefits, and alternatives to treatment were discussed with the patient who would like to proceed with surgery. Please see clinic note below for further details. Phil Carrasco MD Surgery, PGY-1 12/23/2024 12:58 PM Cosigned by Nader Casanova MD at 12/25/2024 4:41 PM CDT Associated attestation - Nader Casanova MD - 12/25/2024 4:41 PM CDT I was present and performed the physical exam on 12/23/2024 and discussed the care with the resident staff, Dr. Carrasco. I agree with the note as written and I participated in all of the hatfield aspects of the decision making. Nader Casanova MD Source Note - Arely Mauricio MD - 12/19/2024 1:15 PM CDT Images from the original note were not included. Vascular Surgery Clinic Note 12/19/2024 16:57 Chief Complaint: FU PAD History of Present Illness: 11/07/24 Inocencia Wu is a 69 year old female who underwent RLE SFA, peroneal and AT angioplasty + D2 amp and wound vac placement 10/16/24. She is here for there first time clinic visit after hospitalization. Pain is well controlled. She does not know what medications is she taking but says that she is taking everything we prescribed (DAPT + rosuvastatin). Denies fever or any systemic symptoms. Home nurse came today and changed the wound vac. Apparently nurse said it looked pretty good. Patient and her daughter also state that the wound looked good. She is worried about her L D2 necrotic blister. 11/21/24 Has been changing her wound vac at home with HH. No fever or systemic symptoms. Per family the nurse has been saying the wound looks clean. Interval HPI 12/05/24 Patient has had a transmetatarsal amputation on 11/23. She has been having a lot of pain, and is not very well controlled with oxy 5 mg. She has home health that has been changing her wound vac. Denies any fever, chills, drainage or foul smell from amputation stump. Her daughters noticed that her left second toe has a small brown spot that has been getting worse (looks similar to the pictures taken in oct) . She denied pain over that area, but endorsed some heel pain. Interval HPI 12/19/24 Patient had a TMA on 11/23. Since last visit her home health nurse stated that the wound does not look like it's healing appropriately, and should have it checked out. She has is changed 2 times a week. She continued to have pain at the stump area, and is currently being followed by pain services. She denied any fever chills or body aches. She did state that she needed a new OT referral due to problems with finding the order for her insurance, Past Medical History Past Medical History: Diagnosis Date Abnormal chest CT calcified granuloma 8mm RUL per chest CT 12/12/16, no f/u needed per Dr. Becerra Blood dyscrasia DM2 (diabetes mellitus, type 2) noton medications due to controlled. History of gangrene 2013 History of nocturia Hyperlipidemia Hypovitaminosis D 01/05/2018 Leiomyoma of uterus resolved ? in her 20's MSSA (methicillin susceptible Staphylococcus aureus) infection 07/30/2018 Pulmonary nodules 02/16/2019 RA (rheumatoid arthritis) Superficial thrombophlebitis Thyroid disease Urinary incontinence Urinary urgency Past Surgical History Past Surgical History: Procedure Laterality Date ANGIOGRAM VIA LOWER EXTREMITY ACCESS (SHX) Left 10/16/2024 Surgeon: Luis Jay MD; [facility] ANGIOGRAM VIA LOWER EXTREMITY ACCESS (SHX) Bilateral 10/14/2024 Surgeon: Nader Casanova MD; [facility] BUNIONECTOMY Right 12/23/2018 Surgeon: Aayush Carlson Jr., DPM; [facility] DEBRIDEMENT LOWER EXTREMITY (SHX) Right 10/22/2024 Surgeon: Andrew Sena DO; [facility] DEBRIDEMENT OF FINGER WOUND (SHX) 06/01/2014 FINGER AMPUTATION Left 06/06/2014 Surgeon: Sherice Clemons MD; [facility] FINGER AMPUTATION 2016 Left Hand / middle finger HAND DEBRIDEMENT Left 06/01/2014 Surgeon: Sherice Clemons MD; [facility] SHEN BUNION (SHX) Right 12/23/2018 Surgeon: Aayush Carlson Jr., DPM; [facility] TOE AMPUTATION Left 10/16/2024 Surgeon: Luis Jay MD; [facility] TOE AMPUTATION Right 10/22/2024 Surgeon: Andrew Sena DO; [facility] TOTAL KNEE ARTHROPLASTY Left 02/15/2018 Surgeon: Parth Ibarra MD; [facility] TOTAL KNEE ARTHROPLASTY Right 02/14/2019 Surgeon: Parth Ibarra MD; [facility] TRANSMETATARSAL AMPUTATION Right 11/23/2024 Surgeon: Luis Jay MD; Location: [facility] Family History Family History Problem Relation Age of Onset Arthritis Mother Arthritis Sister osteoarthritis Asthma NoFHx defects NoFHx Breast Cancer NoFHx Colon Cancer NoFHx Ovarian Cancer NoFHx Uterine Cancer NoFHx Cancer NoFHx Depression NoFHx Diabetes NoFHx Genetic NoFHx Heart NoFHx High cholesterol NoFHx Hypertension NoFHx Mental retardation NoFHx Neurological NoFHx Osteoporosis NoFHx Psychiatry NoFHx Other - see comments NoFHx Social History Social History Socioeconomic History Marital status: Single Number of children: 2 Occupational History Occupation: retired Tobacco Use Smoking status: Former Types: Cigarettes Passive exposure: Past Smokeless tobacco: Never Tobacco comments: Quit smoking around 2011 Vaping Use Vaping status: Never Used Substance and Sexual Activity Alcohol use: Yes Comment: rare Drug use: No Sexual activity: Not Currently Partners: Male control/protection: Post-menopausal Social History Narrative Single, 2 kids Lives with daughter No domestic or physical violence within the home Hoahaoism Preference: [employer]ian Social Determinants of Health Financial Resource Strain: Low Risk (12/07/2024) Overall Financial Resource Strain (CARDIA) Difficulty of Paying Living Expenses: Not hard at all Food Insecurity: No Food Insecurity (12/07/2024) NCSS - Food Insecurity Worried About Running Out of Food in the Last Year: No Ran Out of Food in the Last Year: No Transportation Needs: No Transportation Needs (12/07/2024) NCSS - Transportation Lack of Transportation: No Physical Activity: Inactive (12/07/2024) Exercise Vital Sign Days of Exercise per Week: 0 days Minutes of Exercise per Session: 0 min Housing Stability: At Risk (12/07/2024) NCSS - Housing/Utilities Has Housing: No Worried About Losing Housing: No Unable to Get Utilities: No Allergies Allergen Reactions Doxycycline Nausea and/or Vomiting Sulfa (Sulfonamide Antibiotics) Nausea and/or Vomiting Bactrim Current Outpatient Medications Medication Sig Dispense Refill HYDROcodone-acetaminophen 5-325 mg tablet Take 1 tablet by mouth in the morning and 1 tablet at noon and 1 tablet in the evening. methotrexate 2.5 mg tablet DULoxetine 30 mg capsule Take 1 capsule by mouth in the morning. 90 capsule 1 Miscellaneous Medical Supply Misc orders for pads, pull ups and incontinent supplies like wipes. 100 Each 2 methocarbamoL 500 mg tablet Take 1 tablet by mouth in the morning and 1 tablet at noon and 1 tablet in the evening. Do all this for 30 days. 90 tablet 0 aspirin 81 mg chewable tablet Take 1 tablet by mouth in the morning for 360 days. 30 tablet 11 clopidogreL 75 mg tablet Take 1 tablet by mouth in the morning for 90 days. 30 tablet 2 gabapentin 300 mg capsule Take 1 capsule by mouth in the morning and 1 capsule at noon and 1 capsule in the evening. Do all this for 60 days. 90 capsule 1 losartan 25 mg tablet Take 1 tablet by mouth in the morning for 60 days. 30 tablet 1 rosuvastatin 20 mg tablet Take 1 tablet by mouth in the morning for 360 days. 30 tablet 11 zinc sulfate 50 mg zinc (220 mg) capsule Take 1 capsule by mouth in the morning and 1 capsule at noon and 1 capsule in the evening. Do all this for 90 days. 90 capsule 2 omeprazole 40 mg capsule Take 1 capsule by mouth in the morning. levothyroxine 50 mcg tablet Take 1 tablet by mouth every morning. 90 tablet 1 No current facility-administered medications for this visit. Physical Exam (-)=Negative,(+)=Positive Vitals: 12/19/24 1324 BP: 105/59 Pulse: 72 Resp: 20 Temp: 36.8 ?C (98.3 ?F) SpO2: 98% General: alert and oriented x 4 (person, place, date/time and situation); no apparent distress Respiratory: breathing unlabored Cardiovascular: RRR Musculoskeletal: no clubbing, cyanosis or edema Integumentary: no rashes Vascular: BL PT and AT signals present Rt amputation stump healing slowly, with some dusky fibrinous areas. Laboratory No new labs Radiology No new rads Assessment/Plan Inocencia Wu is a 69 year old female who underwent RLE transmetatarsal amputation now with a wound vac. Wound is slow to healing, with evidence of poor perfusion from last arteriogram. 1- continue wound vac with black sponge 2X a week 2- wound debridement of right lower extremity TMA stump and arteriogram with possible intervention with Dr. Casanova on 12/23/24 Arely Mauricio MD General Surgery PGY1 I performed a history and physical examination of the patient in conjunction with the resident Dr. Mauricio. I agree with the note as written with the following additions as in my separate note. Nader Casanova MD [facility] 2024-11-21 22:21:16 [facility] Hospitalist Admission H&P Date of Service: 11/21/2024 CHIEF COMPLAINT: Purulent discharge from the right foot HISTORY OF PRESENT ILLNESS Inocencia Wu is a 69 year old female who presents with purulent discharge in the right foot. Patient has significant peripheral arterial disease and has had angioplasty of the right superficial femoral artery in the peroneal artery as well as anterior tibial artery. Patient's also had a wound on the right foot that is being being cared for by home health nursing staff. Patient is followed up with vascular surgery today and when the wound VAC was removed there was a purulent discharge from the right foot. Patient was sent to the hospital for direct admission. As patient talks about her foot she becomes very emotional. She has had a toe amputation recently and it was noted that she had some dark and discolored lesions on her toes. She is upset that she has had to have a toe amputation. She is also upset that her wound is not healing properly. She is scared that she may need further amputations. At this time, patient will be admitted to the hospital for inpatient hospitalization. PAST MEDICAL HISTORY Past Medical History: Diagnosis Date Abnormal chest CT calcified granuloma 8mm RUL per chest CT 12/12/16, no f/u needed per Dr. Becerra Blood dyscrasia DM2 (diabetes mellitus, type 2) noton medications due to controlled. History of gangrene 2013 History of nocturia Hyperlipidemia Hypovitaminosis D 01/05/2018 Leiomyoma of uterus resolved ? in her 20's MSSA (methicillin susceptible Staphylococcus aureus) infection 07/30/2018 Pulmonary nodules 02/16/2019 RA (rheumatoid arthritis) Superficial thrombophlebitis Thyroid disease Urinary incontinence Urinary urgency PAST SURGICAL HISTORY Past Surgical History: Procedure Laterality Date ANGIOGRAM VIA LOWER EXTREMITY ACCESS (SHX) Left 10/16/2024 Surgeon: Luis Jay MD; [facility] ANGIOGRAM VIA LOWER EXTREMITY ACCESS (SHX) Bilateral 10/14/2024 Surgeon: Nader Casanova MD; [facility] BUNIONECTOMY Right 12/23/2018 Surgeon: Aayush Carlson Jr., DPM; [facility] DEBRIDEMENT LOWER EXTREMITY (SHX) Right 10/22/2024 Surgeon: Andrew Sena DO; [facility]: [facility] DEBRIDEMENT OF FINGER WOUND (SHX) 06/01/2014 FINGER AMPUTATION Left 06/06/2014 Surgeon: Sherice Clemons MD; [facility] FINGER AMPUTATION 2016 Left Hand / middle finger HAND DEBRIDEMENT Left 06/01/2014 Surgeon: Sherice Clemons MD; [facility] SHEN BUNION (SHX) Right 12/23/2018 Surgeon: Aayush Carlson Jr., DPM; [facility]: [facility] TOE AMPUTATION Left 10/16/2024 Surgeon: Luis Jay MD; [facility] TOE AMPUTATION Right 10/22/2024 Surgeon: Andrew Sena DO; [facility] TOTAL KNEE ARTHROPLASTY Left 02/15/2018 Surgeon: Parth Ibarra MD; Location: [facility] TOTAL KNEE ARTHROPLASTY Right 02/14/2019 Surgeon: Parth Ibarra MD; Location: [facility] ALLERGIES Allergies Allergen Reactions Doxycycline Nausea and/or Vomiting Sulfa (Sulfonamide Antibiotics) Nausea and/or Vomiting Bactrim MEDICATIONS Current home medication list reviewed: Current Discharge Medication List STOP taking these medications Oxycodone 10 mg Tab Comments: Reason for Stopping: aspirin 81 mg chewable tablet Comments: Reason for Stopping: clopidogreL 75 mg tablet Comments: Reason for Stopping: gabapentin 300 mg capsule Comments: Reason for Stopping: losartan 25 mg tablet Comments: Reason for Stopping: NIFEdipine ER 60 mg tablet Comments: Reason for Stopping: rosuvastatin 20 mg tablet Comments: Reason for Stopping: omeprazole 40 mg capsule Comments: Reason for Stopping: zinc sulfate 50 mg zinc (220 mg) capsule Comments: Reason for Stopping: levothyroxine 50 mcg tablet Comments: Reason for Stopping: FAMILY HISTORY Family History Problem Relation Age of Onset Arthritis Mother Arthritis Sister osteoarthritis Asthma NoFHx defects NoFHx Breast Cancer NoFHx Colon Cancer NoFHx Ovarian Cancer NoFHx Uterine Cancer NoFHx Cancer NoFHx Depression NoFHx Diabetes NoFHx Genetic NoFHx Heart NoFHx High cholesterol NoFHx Hypertension NoFHx Mental retardation NoFHx Neurological NoFHx Osteoporosis NoFHx Psychiatry NoFHx Other - see comments NoFHx SOCIAL HISTORY Social History Socioeconomic History Marital status: Single Number of children: 2 Occupational History Occupation: retired Tobacco Use Smoking status: Former Types: Cigarettes Passive exposure: Past Smokeless tobacco: Never Tobacco comments: Quit smoking around 2011 Vaping Use Vaping status: Never Used Substance and Sexual Activity Alcohol use: Yes Comment: rare Drug use: No Sexual activity: Not Currently Partners: Male control/protection: Post-menopausal Social History Narrative Single, 2 kids Lives with daughter No domestic or physical violence within the home Hoahaoism Preference: [employer] Social Determinants of Health Food Insecurity: No Food Insecurity (10/16/2024) NCSS - Food Insecurity Worried About Running Out of Food in the Last Year: No Ran Out of Food in the Last Year: No Transportation Needs: No Transportation Needs (10/16/2024) NCSS - Transportation Lack of Transportation: No Housing Stability: Not At Risk (10/16/2024) NCSS - Housing/Utilities Has Housing: Yes Worried About Losing Housing: No Unable to Get Utilities: No REVIEW OF SYSTEMS 10 systems negative except per HPI PHYSICAL EXAMINATION BP 107/63 | Pulse 84 | Temp 36.6 ?C (97.8 ?F) (Temporal Artery) | Resp 25 | Ht 1.651 m (5' 5") | Wt 66 kg (145 lb 8 oz) | SpO2 92% | BMI 24.21 kg/m? General: No acute distress HEENT: Normal oral mucosa, anicteric sclerae, NCAT Cardiovascular: RRR Lungs: Symmetric expansion, clear bilaterally Abdomen: Soft, NTND Musculoskeletal: No synovitis, normal muscle mass Genitourinary: Deferred Skin: No rash, no skin lesions Extremities: No clubbing, gangrene of the left 2nd toe, no lower extremity edema; amputation of the right foot. Neuro: AAOx3, no focal deficits Psych: Normal affect LABS - reviewed pertinent labs as below: CBC BMP PT/INR WBC x10 3 (/uL) Date Value 06/01/2014 8.6 WBC-LC (x10E3/uL) Date Value 01/22/2018 9.7 WHITE BLOOD CELL COUNT-Q (Thousand/uL) Date Value 11/02/2018 8.4 WBC (10*3/?L) Date Value 11/21/2024 11.85 (H) NA Date Value 11/21/2024 139 mmol/L 06/05/2014 143 MMOL/L Sodium, Serum-LC (mmol/L) Date Value 01/22/2018 143 SODIUM-Q (mmol/L) Date Value 11/02/2018 142 No results found for: "PT" RBC x10 6 (/uL) Date Value 06/01/2014 4.20 RBC-LC (x10E6/uL) Date Value 01/22/2018 4.56 RED BLOOD CELL COUNT-Q (Million/uL) Date Value 11/02/2018 4.21 RBC (10*6/?L) Date Value 11/21/2024 3.52 (L) K Date Value 11/21/2024 1.9 mmol/L (LL) 06/05/2014 4.2 MMOL/L Potassium, Serum-LC (mmol/L) Date Value 01/22/2018 4.2 POTASSIUM-Q (mmol/L) Date Value 11/02/2018 4.9 PT INR (no units) Date Value 06/01/2014 1.1 INR (no units) Date Value 10/14/2024 1.1 PLT x10 3 (/uL) Date Value 06/01/2014 336 Platelets-LC (x10E3/uL) Date Value 01/22/2018 297 PLATELET COUNT-Q (Thousand/uL) Date Value 11/02/2018 245 PLT (10*3/?L) Date Value 11/21/2024 225 CALCIUM Date Value 11/21/2024 8.7 mg/dL 06/05/2014 9.6 MG/DL Calcium, Serum-LC (mg/dL) Date Value 01/22/2018 9.5 CALCIUM-Q (mg/dL) Date Value 11/02/2018 9.1 HGB Date Value 11/21/2024 10.9 g/dL (L) 06/01/2014 11.9 G/DL Hemoglobin-LC (g/dL) Date Value 01/22/2018 13.8 HEMOGLOBIN-Q (g/dL) Date Value 11/02/2018 12.5 CL Date Value 11/21/2024 108 mmol/L 06/05/2014 103 MMOL/L Chloride, Serum-LC (mmol/L) Date Value 01/22/2018 96 CHLORIDE-Q (mmol/L) Date Value 11/02/2018 106 aPTT HCT (%) Date Value 11/21/2024 31.9 (L) 06/01/2014 37.0 Hematocrit-LC (%) Date Value 01/22/2018 42.1 HEMATOCRIT-Q (%) Date Value 11/02/2018 37.5 BUN Date Value 11/21/2024 13 mg/dL 06/05/2014 8 MG/DL BUN-LC (mg/dL) Date Value 01/22/2018 12 UREA NITROGEN (BUN)-Q (mg/dL) Date Value 11/02/2018 15 APTT (SEC) Date Value 06/01/2014 31 APTT Patient (Seconds) Date Value 10/14/2024 33 CREATININE Date Value 11/21/2024 1.19 mg/dL (H) 06/05/2014 0.52 MG/DL Creatinine, Serum-LC (mg/dL) Date Value 01/22/2018 0.63 CREATININE-Q (mg/dL) Date Value 11/02/2018 0.61 IMAGING - reviewed, pertinent results as below: No results found for this visit on 11/21/24. ASSESSMENT/PLAN: 1. Necrosis of the left second toe; plan for n.p.o. after midnight and consult vascular surgery for arteriogram. Patient with recent angioplasty. Will continue with antiplatelet therapy and statin therapy. 2. Purulent discharge from the right amputated foot; continue with IV antibiotic therapy 3. History of peripheral arterial disease with angioplasty as mentioned above; continue with antiplatelet therapy and statin therapy 4. History of chronic pain; continue with oxycodone 5. History of PAD; as above 6. Neuropathy; continue with gabapentin 7. Hyperlipidemia; continue with statin therapy 8. Hypothyroidism; continue with levothyroxine 9. History of hypertension; resume antihypertensives 10. GI DVT prophylaxis DVT prophylaxis: enoxaparin Stress ulcer prophylaxis: pantoprazole Code status: FULL Advanced Care Planning (Z71.89) Above assessment and plan discussed at length with patient, patient expressed full understanding. Questions and concerned addressed. Surrogate decision maker: NO Level of care expected after discharge: HOME Time spent: 3 minutes discussing the advanced care plan Smoking Cessation: (Z71.6) Tobacco user?: NO Patient will require inpatient stay of 2 midnights or more given high risk of morbidity and mortality. [place] [employer] was verified during stay Jairo Paz MD E NETWORK ENGINEER IM-INTERNAL MEDICINE STAFF [facility] 2024-10-13 21:44:00 [facility] Hospitalist Admission H&P Date of Service: 10/13/2024 CHIEF COMPLAINT: Right second toe cyanosis with ulceration along with discoloration of the right great toe HISTORY OF PRESENT ILLNESS Inocencia Wu is a 69 year old female who presents with discoloration of the second toe on the right foot. She also has an ulcer next to the great toe. The great toe also has some discoloration. Patient was seen by podiatry and sent into the emergency room for further evaluation. In the ER, patient was to be admitted for a questionable diabetic foot ulcer. However, patient normal blood sugar and a CT and there is a questionable history of diabetes. Patient had a arterial Doppler performed: Interpretation Summary Duplex ultrasound was performed of the major arteries of the BILATERAL lower extremities. There is scattered hard, calcified plaque in all visualized arteries. The RIGHT mid and BILATERAL distal posterior tibial arteries are OCCLUDED. The RIGHT proximal peroneal artery is 50-75% stenosis. Vascular surgery is consulted and plans for patient to get arteriogram in the morning with possible angioplasty. PAST MEDICAL HISTORY Past Medical History: Diagnosis Date Abnormal chest CT calcified granuloma 8mm RUL per chest CT 12/12/16, no f/u needed per Dr. Becerra Blood dyscrasia DM2 (diabetes mellitus, type 2) noton medications due to controlled. History of gangrene 2013 History of nocturia Hyperlipidemia Hypovitaminosis D 01/05/2018 Leiomyoma of uterus resolved ? in her 20's MSSA (methicillin susceptible Staphylococcus aureus) infection 07/30/2018 Pulmonary nodules 02/16/2019 RA (rheumatoid arthritis) Superficial thrombophlebitis Thyroid disease Urinary incontinence Urinary urgency PAST SURGICAL HISTORY Past Surgical History: Procedure Laterality Date BUNIONECTOMY Right 12/23/2018 Surgeon: Aayush Carlson Jr., NANDINI; Location: [facility] OR [facility] DEBRIDEMENT OF FINGER WOUND (SHX) 06/01/2014 FINGER AMPUTATION Left 06/06/2014 Surgeon: Sherice Clemons MD; Location: [facility] FINGER AMPUTATION 2016 Left Hand / middle finger HAND DEBRIDEMENT Left 06/01/2014 Surgeon: Sherice Clemons MD; Location: [facility] OR LOCATION SHEN BUNION (SHX) Right 12/23/2018 Surgeon: Aayush Carlson Jr., DP; Location: [facility] OR Location TOTAL KNEE ARTHROPLASTY Left 02/15/2018 Surgeon: Parth Ibarra MD; Location: [facility] OR Location TOTAL KNEE ARTHROPLASTY Right 02/14/2019 Surgeon: Parth Ibarra MD; Location: [facility] OR [facility] ALLERGIES Allergies Allergen Reactions Doxycycline Nausea and/or Vomiting Sulfa (Sulfonamide Antibiotics) Nausea and/or Vomiting Bactrim MEDICATIONS Current home medication list reviewed: Current Discharge Medication List STOP taking these medications omeprazole 40 mg capsule Comments: Reason for Stopping: ATORVASTATIN 10 mg tablet Comments: Reason for Stopping: Ibuprofen 200 mg capsule Comments: Reason for Stopping: HYDROcodone-acetaminophen 10-325 mg tablet Comments: Reason for Stopping: levothyroxine 50 mcg tablet Comments: Reason for Stopping: methotrexate 2.5 mg tablet Comments: Reason for Stopping: FAMILY HISTORY Family History Problem Relation Age of Onset Arthritis Mother Arthritis Sister osteoarthritis Asthma NoFHx defects NoFHx Breast Cancer NoFHx Colon Cancer NoFHx Ovarian Cancer NoFHx Uterine Cancer NoFHx Cancer NoFHx Depression NoFHx Diabetes NoFHx Genetic NoFHx Heart NoFHx High cholesterol NoFHx Hypertension NoFHx Mental retardation NoFHx Neurological NoFHx Osteoporosis NoFHx Psychiatry NoFHx Other - see comments NoFHx SOCIAL HISTORY Social History Socioeconomic History Marital status: Single Number of children: 2 Occupational History Occupation: retired Tobacco Use Smoking status: Former Smokeless tobacco: Never Tobacco comments: Quit smoking around 2011 Vaping Use Vaping status: Never Used Substance and Sexual Activity Alcohol use: Yes Comment: rare Drug use: No Sexual activity: Not Currently Partners: Male control/protection: Post-menopausal Social History Narrative Single, 2 kids Lives with daughter No domestic or physical violence within the home Hoahaoism Preference: [employer] Social Determinants of Health Food Insecurity: No Food Insecurity (09/20/2024) NCSS - Food Insecurity Worried About Running Out of Food in the Last Year: No Ran Out of Food in the Last Year: No Transportation Needs: No Transportation Needs (09/20/2024) NCSS - Transportation Lack of Transportation: No Housing Stability: Not At Risk (09/20/2024) NCSS - Housing/Utilities Has Housing: Yes Worried About Losing Housing: No Unable to Get Utilities: No REVIEW OF SYSTEMS 10 systems negative except per HPI PHYSICAL EXAMINATION BP (!) 160/72 | Pulse 61 | Temp 36.2 ?C (97.2 ?F) | Resp 18 | Ht 1.6 m (5' 3") | Wt 68.5 kg (151 lb) | SpO2 96% | BMI 26.75 kg/m? General: No acute distress HEENT: Normal oral mucosa, anicteric sclerae, NCAT Cardiovascular: RRR Lungs: Symmetric expansion, clear bilaterally Abdomen: Soft, NTND Musculoskeletal: No synovitis, normal muscle mass Genitourinary: Deferred Skin: No rash, no skin lesions Extremities: No clubbing, cyanosis of the right second toe and discoloration of the right great toe. Pulses diminished bilaterally Neuro: AAOx3, no focal deficits Psych: Normal affect LABS - reviewed pertinent labs as below: CBC BMP PT/INR WBC x10 3 (/uL) Date Value 06/01/2014 8.6 WBC-LC (x10E3/uL) Date Value 01/22/2018 9.7 WHITE BLOOD CELL COUNT-Q (Thousand/uL) Date Value 11/02/2018 8.4 WBC (10*3/?L) Date Value 10/13/2024 5.26 NA Date Value 10/13/2024 142 mmol/L 06/05/2014 143 MMOL/L Sodium, Serum-LC (mmol/L) Date Value 01/22/2018 143 SODIUM-Q (mmol/L) Date Value 11/02/2018 142 No results found for: "PT" RBC x10 6 (/uL) Date Value 06/01/2014 4.20 RBC-LC (x10E6/uL) Date Value 01/22/2018 4.56 RED BLOOD CELL COUNT-Q (Million/uL) Date Value 11/02/2018 4.21 RBC (10*6/?L) Date Value 10/13/2024 3.64 (L) K Date Value 10/13/2024 3.7 mmol/L 06/05/2014 4.2 MMOL/L Potassium, Serum-LC (mmol/L) Date Value 01/22/2018 4.2 POTASSIUM-Q (mmol/L) Date Value 11/02/2018 4.9 PT INR (no units) Date Value 06/01/2014 1.1 INR (no units) Date Value 02/14/2019 1.1 PLT x10 3 (/uL) Date Value 06/01/2014 336 Platelets-LC (x10E3/uL) Date Value 01/22/2018 297 PLATELET COUNT-Q (Thousand/uL) Date Value 11/02/2018 245 PLT (10*3/?L) Date Value 10/13/2024 165 (L) CALCIUM Date Value 10/13/2024 9.0 mg/dL 06/05/2014 9.6 MG/DL Calcium, Serum-LC (mg/dL) Date Value 01/22/2018 9.5 CALCIUM-Q (mg/dL) Date Value 11/02/2018 9.1 HGB Date Value 10/13/2024 10.5 g/dL (L) 06/01/2014 11.9 G/DL Hemoglobin-LC (g/dL) Date Value 01/22/2018 13.8 HEMOGLOBIN-Q (g/dL) Date Value 11/02/2018 12.5 CL Date Value 10/13/2024 110 mmol/L (H) 06/05/2014 103 MMOL/L Chloride, Serum-LC (mmol/L) Date Value 01/22/2018 96 CHLORIDE-Q (mmol/L) Date Value 11/02/2018 106 aPTT HCT (%) Date Value 10/13/2024 33.1 (L) 06/01/2014 37.0 Hematocrit-LC (%) Date Value 01/22/2018 42.1 HEMATOCRIT-Q (%) Date Value 11/02/2018 37.5 BUN Date Value 10/13/2024 14 mg/dL 06/05/2014 8 MG/DL BUN-LC (mg/dL) Date Value 01/22/2018 12 UREA NITROGEN (BUN)-Q (mg/dL) Date Value 11/02/2018 15 APTT (SEC) Date Value 06/01/2014 31 APTT Patient (Seconds) Date Value 01/20/2019 29 CREATININE Date Value 10/13/2024 0.53 mg/dL 06/05/2014 0.52 MG/DL Creatinine, Serum-LC (mg/dL) Date Value 01/22/2018 0.63 CREATININE-Q (mg/dL) Date Value 11/02/2018 0.61 IMAGING - reviewed, pertinent results as below: Hospital Encounter on 10/13/24 XR Foot 3+ vw right Narrative ORDERING PHYSICIAN: MIRIAM HILL. HISTORY: right foot/toe wound TECHNIQUE: 3 views COMPARISON: 09/20/2024 FINDINGS: Alignment is anatomic. Bunionectomy changes are present. Solitary partially threaded screws transfix old healed osteotomies of distal first and fifth metatarsals. There is moderate tibiotalar joint space narrowing. Moderate plantar calcaneal spurring is seen. There are vascular calcifications. Impression The wound is not well-characterized on radiograph. No focal bone destruction to indicate osteomyelitis. End of Report SSMENT: 1. Patient with PAD with gangrene/ulcer of the second toe on the right foot along with great toe 2. History of rheumatoid arthritis 3. History of hypothyroidism 4. History of tobacco abuse; quit 9 years ago 5. Questionable diabetes PLAN: 1. Patient with peripheral arterial disease with concern for arterial insufficiency wound to the second toe and the right great toe; continue with anticoagulation and antibiotics. Vascular surgery consultation for arteriogram and angioplasty secondary to findings on arterial Doppler of the lower extremities. Continue with antiplatelet therapy and statin therapy 2. History of rheumatoid arthritis; continue outpatient treatment with methotrexate 3. History of hypothyroidism; continue with Synthroid 4. History of tobacco use; fortunately patient is quit 9 years ago. However, this contributed to her PAD. Will need to continue with antiplatelet therapy and statin therapy and refrain from tobacco use 5. Questionable history of diabetes; A1c is normal as his blood sugars. Will continue monitoring. Patient will be p.o. for surgical intervention in AM. DVT prophylaxis: enoxaparin Stress ulcer prophylaxis: pantoprazole Code status: FULL Advanced Care Planning (Z71.89) Above assessment and plan discussed at length with patient, patient expressed full understanding. Questions and concerned addressed. Surrogate decision maker: NO Level of care expected after discharge: HOME Time spent: 3 minutes discussing the advanced care plan Smoking Cessation: (Z71.6) Tobacco user?: NO Patient will require inpatient stay of 2 midnights or more given high risk of morbidity and mortality. [place] [employer] was verified during stay Jairo Paz MD E NETWORK ENGINEER IM-INTERNAL MEDICINE STAFF [facility] Procedure Notes Date/Time Note Provider Source 2024-11-23 08:06:28 Associated Order(s): Intubation Intubation Date/Time: 11/23/2024 8:11 AM Urgency: elective Airway not difficult General Information and Staff Patient location during procedure: OR Performed: resident/SCIENTIFIC EDITOR Performed by: Parth Ocasio, ANGELIQUE Authorized by: Robby Franklin MD Indications and Patient Condition Indications for airway management: anesthesia Spontaneous Ventilation: absent Sedation level: deep Preoxygenated: yes Patient position: sniffing MILS maintained throughout Mask difficulty assessment: 0 - not attempted Final Airway Details Final airway type: supraglottic airway Successful airway: Size 4 Airway Seal Pressure (cm H2O): 20 Number of attempts at approach: 1 Ventilation between attempts: none Number of other approaches attempted: 0 Additional Comments Eyes taped prior to placement, smooth, atraumatic, dentition and lips unchanged from pre-op. E NETWORK ENGINEER NACR-NURSE CERTIFIED ANESTHESIOLOGIST ASSISTANT,CERTIFIED REGISTERED NURSE CERTIFIED ANESTHESIOLOGIST ASSISTANT [facility] Notes Date/Time Note Provider Source 2025-01-17 18:49:49 She probably needs to be seen in clinic with me on . ANA-VASCULAR SURGERY STAFF [facility] 2025-01-17 15:33:09 Spoke with Gabi (home health nurse for patient) states she needs clarification on wound care orders. She also reports that the "entire wound bed is black", denies any odor and reports minimal drainage. Discharge orders for 01/11/25 copied below. Discharge Orders Wound Care Order Comments: WOUND CARE INSTRUCTIONS Perform dressing changes twice daily. Moisten Gauze with Dakin's solution and apply to wound, followed by dry gauze, Abdominal pad. Wrapped wound with Kerlix, SEVEN Home Health Order Order Comments: I certify that Inocencia Wu is under my care and that I, or a nurse practitioner or physician's pharmacy affairs assistant working with me, had a [id number] encounter with this patient on: 12/30/2024. The encounter with Inocencia Wu was in whole or in part, for the following medical condition(s), which is the primary reason for home health care: PAD (peripheral artery disease). I am ordering and certify that based on my findings the following services are medically necessary home health services: Resumption of Home Healthcare orders, Evaluation and Treatment, Physical Therapy Eval & Treatment, and Occupational Therapy Eval & Treatment Fdc Services: Wound Care, Medication Management, and Teaching Wound Vac Care -con't Wound Vac to R-foot - Con't with -125 mmHg -change Wound Vac every 7 days with Siver sponge PCP follow up: Jordi Chand States she will call the patient's pcp regarding her medication orders. Please advise wound care orders. Kaci Kearns RN [facility] 2025-01-17 15:18:11 Inocencia Wu is a 69 year old female HHNurse calling to clarify if the pt is to take Gabapentin 300MG 1TID, Cymbalta, and if she should still be using the wound vac. Pt/daughter of pt states the wound vac is not needed. Also reports pt's amputated area is in severe pain [phone] Amalia Pina [facility] 2025-01-11 18:15:23 Problem: Falls, Risk of Goal: Absence of falls Outcome: Resolved Problem: Procedure Routine Goal: Absence of post-procedure complications Outcome: Resolved Goal: Knowledge of procedure Outcome: Resolved Problem: Pain Goal: Control of pain at or below patient's documented comfort goal Outcome: Resolved Goal: Reduction in pain sensation Outcome: Resolved Problem: Discharge Planning Goal: Adequate for discharge Outcome: Resolved Goal: Effective communication Outcome: Resolved Problem: Skin integrity Impaired (Risk or Actual) Goal: Wound healing Outcome: Resolved Goal: Prevention of new skin breakdown Outcome: Resolved Mary Kay Andrea RN [facility] 2025-01-10 12:16:14 Problem: Falls, Risk of Goal: Absence of falls Outcome: Progressing as expected Problem: Procedure Routine Goal: Absence of post-procedure complications Outcome: Progressing as expected Goal: Knowledge of procedure Outcome: Progressing as expected Problem: Pain Goal: Control of pain at or below patient's documented comfort goal Outcome: Progressing as expected Goal: Reduction in pain sensation Outcome: Progressing as expected Problem: Discharge Planning Goal: Adequate for discharge Outcome: Progressing as expected Goal: Effective communication Outcome: Progressing as expected Problem: Skin integrity Impaired (Risk or Actual) Goal: Wound healing Outcome: Progressing as expected Goal: Prevention of new skin breakdown Outcome: Progressing as expected Mae Martin RN [facility] 2025-01-09 15:57:51 Problem: Falls, Risk of Goal: Absence of falls Outcome: Progressing as expected Problem: Procedure Routine Goal: Absence of post-procedure complications Outcome: Progressing as expected Goal: Knowledge of procedure Outcome: Progressing as expected Problem: Pain Goal: Control of pain at or below patient's documented comfort goal Outcome: Progressing as expected Goal: Reduction in pain sensation Outcome: Progressing as expected Problem: Discharge Planning Goal: Adequate for discharge Outcome: Progressing as expected Goal: Effective communication Outcome: Progressing as expected Problem: Skin integrity Impaired (Risk or Actual) Goal: Wound healing Outcome: Progressing as expected Goal: Prevention of new skin breakdown Outcome: Progressing as expected [facility] 2025-01-09 03:46:59 Problem: Falls, Risk of Goal: Absence of falls Outcome: Progressing as expected Problem: Procedure Routine Goal: Absence of post-procedure complications Outcome: Progressing as expected Goal: Knowledge of procedure Outcome: Progressing as expected Problem: Pain Goal: Control of pain at or below patient's documented comfort goal Outcome: Progressing as expected Goal: Reduction in pain sensation Outcome: Progressing as expected Problem: Discharge Planning Goal: Adequate for discharge Outcome: Progressing as expected Goal: Effective communication Outcome: Progressing as expected Problem: Skin integrity Impaired (Risk or Actual) Goal: Wound healing Outcome: Progressing as expected Goal: Prevention of new skin breakdown Outcome: Progressing as expected [facility] 2025-01-08 18:01:19 Rn attempted multiple times to provide patient with wound care and a new dressing. As of 1806 dressing is damp with serosanguinous fluid. Patient denied RN requests saying " No, leave it alone. Do not move my foot. RN further educated the patient explaining that its important to keep her wound and dressing clean and to change it to prevent infection. The patient responded with "It's fine nothing will happen to it, its fine." RN will attempt to clean wound and change dressing again if the patient allows and time permits. [facility] Dorian Vu RN [facility] 2025-01-08 15:01:56 Problem: Falls, Risk of Goal: Absence of falls Outcome: Progressing as expected Problem: Procedure Routine Goal: Absence of post-procedure complications Outcome: Progressing as expected Goal: Knowledge of procedure Outcome: Progressing as expected Problem: Pain Goal: Control of pain at or below patient's documented comfort goal Outcome: Progressing as expected Goal: Reduction in pain sensation Outcome: Progressing as expected Problem: Discharge Planning Goal: Adequate for discharge Outcome: Progressing as expected Goal: Effective communication Outcome: Progressing as expected Problem: Skin integrity Impaired (Risk or Actual) Goal: Wound healing Outcome: Progressing as expected Goal: Prevention of new skin breakdown Outcome: Progressing as expected [facility] 2025-01-08 05:43:54 Pt refused blood draw. Attempted to draw labs from patient at 0305, pt stated "No. I don't want you to poke me." 2nd attempt at 0545, pt stated "No, I don't want that." Educated pt on importance of drawing labs for blood count and electrolyte levels. Patient still refused. [facility] Maddie Hart RN [facility] 2025-01-08 04:43:25 Problem: Falls, Risk of Goal: Absence of falls Outcome: Progressing as expected Problem: Pain Goal: Control of pain at or below patient's documented comfort goal Outcome: Progressing as expected Goal: Reduction in pain sensation Outcome: Progressing as expected Problem: Discharge Planning Goal: Adequate for discharge Outcome: Progressing as expected Goal: Effective communication Outcome: Progressing as expected Problem: Skin integrity Impaired (Risk or Actual) Goal: Wound healing Outcome: Progressing as expected Goal: Prevention of new skin breakdown Outcome: Progressing as expected [facility] 2025-01-07 11:55:10 Problem: Falls, Risk of Goal: Absence of falls Outcome: Progressing as expected Problem: Procedure Routine Goal: Absence of post-procedure complications Outcome: Progressing as expected Goal: Knowledge of procedure Outcome: Progressing as expected Problem: Pain Goal: Control of pain at or below patient's documented comfort goal Outcome: Progressing as expected Goal: Reduction in pain sensation Outcome: Progressing as expected Problem: Discharge Planning Goal: Adequate for discharge Outcome: Progressing as expected Goal: Effective communication Outcome: Progressing as expected Problem: Skin integrity Impaired (Risk or Actual) Goal: Wound healing Outcome: Progressing as expected Goal: Prevention of new skin breakdown Outcome: Progressing as expected [facility] 2025-01-07 05:26:50 Problem: Falls, Risk of Goal: Absence of falls Outcome: Progressing as expected Problem: Procedure Routine Goal: Absence of post-procedure complications Outcome: Progressing as expected Goal: Knowledge of procedure Outcome: Progressing as expected Problem: Pain Goal: Control of pain at or below patient's documented comfort goal Outcome: Progressing as expected Goal: Reduction in pain sensation Outcome: Progressing as expected Problem: Discharge Planning Goal: Adequate for discharge Outcome: Progressing as expected Goal: Effective communication Outcome: Progressing as expected Problem: Skin integrity Impaired (Risk or Actual) Goal: Wound healing Outcome: Progressing as expected Goal: Prevention of new skin breakdown Outcome: Progressing as expected [facility] Serg Vincent RN [facility] 2025-01-06 16:13:38 Problem: Falls, Risk of Goal: Absence of falls Outcome: Progressing as expected Problem: Procedure Routine Goal: Absence of post-procedure complications Outcome: Progressing as expected Goal: Knowledge of procedure Outcome: Progressing as expected Problem: Pain Goal: Control of pain at or below patient's documented comfort goal Outcome: Progressing as expected Goal: Reduction in pain sensation Outcome: Progressing as expected Problem: Discharge Planning Goal: Adequate for discharge Outcome: Progressing as expected Goal: Effective communication Outcome: Progressing as expected Problem: Skin integrity Impaired (Risk or Actual) Goal: Wound healing Outcome: Progressing as expected Goal: Prevention of new skin breakdown Outcome: Progressing as expected [facility] 2025-01-06 08:31:16 Full Operative Note 01/06/2025 Faculty: Dr Casanova Residents: Dr Robertson Anesthesia: General anesthesia + regional block Preoperative Diagnosis: R TMA ischemic wound Postoperative Diagnosis: R TMA ischemic wound Procedure: R TMA revision Findings: Ischemic superficial tissue. Once revised healthy bed wound tissue EBL: 100 cc Specimen: none Drain: none Dispo: PACU Specific Postop Instructions: [facility] tomorrow Indications for Procedure: Inocencia Wu is a 69 year old female with PAD who underwent DVA and R TMA. R TMA looked ischemic and revision was indicated. Informed consent obtained after discussion of risks, benefits, alternatives and details of the operation. Details of Procedure: The patient was brought to the operating room and moderate sedation was induced. The patient's right lower extremity prepped and draped in the usual sterile fashion. A timeout check was conducted verifying correct patient, procedure, positioning, and laterality. Ancef was given. A circumferential incision 2 cm above the wound edge was done with the 10 blade. The saw was used to transect the bone and Corcoran scissors to cut the tendons. The tissue at this transection point looked healthy and was bleeding. We did hemostasis with stick 2-0 silk ties and 3-0 Vicryl. We then packed the wound wet to dry 4x4, kerlix, and seven wrap. All counts were correct at the end of the case. The patient tolerated the procedure well and was transported to the recovery room in stable condition. Dr. Casanova was present for the entire operation. Norm Palacio Vascular Surgery PGY 2 Cosigned by Nader Casanova MD at 01/06/2025 4:22 PM CDT Associated attestation - Nader Casanova MD - 01/06/2025 4:22 PM CDT I was present in the OR for all of the [place] portions of the procedure and immediately available throughout the entire procedure. Nader Casanova MD [facility] 2025-01-05 09:55:00 Problem: Falls, Risk of Goal: Absence of falls Outcome: Progressing as expected Problem: Procedure Routine Goal: Absence of post-procedure complications Outcome: Progressing as expected Goal: Knowledge of procedure Outcome: Progressing as expected Problem: Pain Goal: Control of pain at or below patient's documented comfort goal Outcome: Not progressing as expected Goal: Reduction in pain sensation Outcome: Not progressing as expected Problem: Discharge Planning Goal: Adequate for discharge Outcome: Progressing as expected Goal: Effective communication Outcome: Progressing as expected Problem: Skin integrity Impaired (Risk or Actual) Goal: Wound healing Outcome: Not progressing as expected Goal: Prevention of new skin breakdown Outcome: Progressing as expected [facility] 2025-01-04 16:25:20 01/04/25 1417 Patient Observation Patient Observations Spoke with Vascular on phone regarding d/c. Dr stated her WBC's are elevated and they are concerned so she needs to talk to the fellow and call nurse back. [facility] Leonarda Villasenor RN [facility] 2025-01-04 12:23:11 01/04/25 1221 Patient Observation Patient Observations Family at bedside asking if patient is discharging today. Nurse stated Dr. Thakkar had spoke to patient this morning stating she was waiting on lab to come back so patient could d/c today. Nurse text paged Dr. Thakkar to inquire if patient is leaving today. Will wait for reponse. [facility] 2025-01-04 09:46:00 Problem: Falls, Risk of Goal: Absence of falls Outcome: Progressing as expected Problem: Procedure Routine Goal: Absence of post-procedure complications Outcome: Progressing as expected Goal: Knowledge of procedure Outcome: Progressing as expected Problem: Pain Goal: Control of pain at or below patient's documented comfort goal Outcome: Not progressing as expected Goal: Reduction in pain sensation Outcome: Not progressing as expected Problem: Discharge Planning Goal: Adequate for discharge Outcome: Progressing as expected Goal: Effective communication Outcome: Progressing as expected Problem: Skin integrity Impaired (Risk or Actual) Goal: Wound healing Outcome: Progressing as expected Goal: Prevention of new skin breakdown Outcome: Progressing as expected [facility] 2025-01-04 04:33:27 Pt refused blood draw from the IV multiple times. Pt kept repeating "No, no its hurts, come back later." I explained that its a brand new IV and that it will not hurt while I draw blood from it. She replied again, "No, No, No it hurts." I explained the importance of checking blood work for infections and electrolyte imbalances, but pt again stated no. T Jacques Anderson RN [facility] 2025-01-04 01:31:03 Problem: Falls, Risk of Goal: Absence of falls Outcome: Progressing as expected Problem: Procedure Routine Goal: Absence of post-procedure complications Outcome: Progressing as expected Goal: Knowledge of procedure Outcome: Progressing as expected Problem: Pain Goal: Control of pain at or below patient's documented comfort goal Outcome: Progressing as expected Goal: Reduction in pain sensation Outcome: Progressing as expected Problem: Discharge Planning Goal: Adequate for discharge Outcome: Progressing as expected Goal: Effective communication Outcome: Progressing as expected Problem: Skin integrity Impaired (Risk or Actual) Goal: Wound healing Outcome: Progressing as expected Goal: Prevention of new skin breakdown Outcome: Progressing as expected [facility] 2025-01-03 16:09:18 Problem: Falls, Risk of Goal: Absence of falls Outcome: Progressing as expected Problem: Procedure Routine Goal: Absence of post-procedure complications Outcome: Progressing as expected Goal: Knowledge of procedure Outcome: Progressing as expected Problem: Pain Goal: Control of pain at or below patient's documented comfort goal Outcome: Progressing as expected Goal: Reduction in pain sensation Outcome: Progressing as expected Problem: Discharge Planning Goal: Adequate for discharge Outcome: Progressing as expected Goal: Effective communication Outcome: Progressing as expected Problem: Skin integrity Impaired (Risk or Actual) Goal: Wound healing Outcome: Progressing as expected Goal: Prevention of new skin breakdown Outcome: Progressing as expected [facility] 2025-01-03 04:22:06 Problem: Falls, Risk of Goal: Absence of falls Outcome: Progressing as expected Problem: Pain Goal: Control of pain at or below patient's documented comfort goal Outcome: Progressing as expected Goal: Reduction in pain sensation Outcome: Progressing as expected Problem: Discharge Planning Goal: Adequate for discharge Outcome: Progressing as expected Goal: Effective communication Outcome: Progressing as expected Problem: Skin integrity Impaired (Risk or Actual) Goal: Wound healing Outcome: Progressing as expected Goal: Prevention of new skin breakdown Outcome: Progressing as expected [facility] 2025-01-02 14:41:48 Problem: Falls, Risk of Goal: Absence of falls Outcome: Progressing as expected Problem: Procedure Routine Goal: Absence of post-procedure complications Outcome: Progressing as expected Goal: Knowledge of procedure Outcome: Progressing as expected Problem: Pain Goal: Control of pain at or below patient's documented comfort goal Outcome: Progressing as expected Goal: Reduction in pain sensation Outcome: Progressing as expected Problem: Discharge Planning Goal: Adequate for discharge Outcome: Progressing as expected Goal: Effective communication Outcome: Progressing as expected Problem: Skin integrity Impaired (Risk or Actual) Goal: Wound healing Outcome: Progressing as expected Goal: Prevention of new skin breakdown Outcome: Progressing as expected Brandon Smith RN [facility] 2025-01-02 12:38:30 Family here to see patient, having questions regarding when will patient be discharged as daughter would like to take her (the patient) home. Vascular paged [phone] Vascular in OR, nurse called back given message, await vascular to call back after surgery Fawn Reyes RN [facility] 2025-01-02 11:37:57 Images from the original note were not included. Antimicrobial Stewardship Program Note Based on review of Inocencia Wu's chart, microbiology and susceptibility results, and radiology, the antimicrobial stewardship program recommends the following: Microbiology 12/27 Urine culture Anti-infectives Ceftriaxone 4/ - 4/2 Ciprofloxacin 12/29 - - Recommend completing course of antibiotics today for an adequate treatment course for urinary tract infection without bacteremia Please call with questions or concerns. Mary Kay Hilton PharmD, [employer] Clinical [employer] Supervisor - Infectious Diseases [employer] [place] Extension: [id number] Mary Kay Hilton [facility] 2025-01-01 09:54:00 Problem: Falls, Risk of Goal: Absence of falls Outcome: Progressing as expected Problem: Procedure Routine Goal: Absence of post-procedure complications Outcome: Progressing as expected Goal: Knowledge of procedure Outcome: Progressing as expected Problem: Pain Goal: Control of pain at or below patient's documented comfort goal Outcome: Progressing as expected Goal: Reduction in pain sensation Outcome: Progressing as expected Problem: Discharge Planning Goal: Adequate for discharge Outcome: Progressing as expected Goal: Effective communication Outcome: Progressing as expected Problem: Skin integrity Impaired (Risk or Actual) Goal: Wound healing Outcome: Progressing as expected Goal: Prevention of new skin breakdown Outcome: Progressing as expected Jose Ruiz RN [facility] 2025-01-01 06:03:22 Problem: Falls, Risk of Goal: Absence of falls Outcome: Progressing as expected Problem: Pain Goal: Control of pain at or below patient's documented comfort goal Outcome: Progressing as expected Problem: Discharge Planning Goal: Adequate for discharge Outcome: Progressing as expected Problem: Skin integrity Impaired (Risk or Actual) Goal: Wound healing Outcome: Progressing as expected Yenifer Markham RN [facility] 2024-12-31 10:02:00 Problem: Falls, Risk of Goal: Absence of falls Outcome: Progressing as expected Problem: Procedure Routine Goal: Absence of post-procedure complications Outcome: Progressing as expected Goal: Knowledge of procedure Outcome: Progressing as expected Problem: Pain Goal: Control of pain at or below patient's documented comfort goal Outcome: Progressing as expected Goal: Reduction in pain sensation Outcome: Progressing as expected Problem: Discharge Planning Goal: Adequate for discharge Outcome: Progressing as expected Goal: Effective communication Outcome: Progressing as expected Problem: Skin integrity Impaired (Risk or Actual) Goal: Wound healing Outcome: Progressing as expected Goal: Prevention of new skin breakdown Outcome: Progressing as expected Mayur Perez RN [facility] 2024-12-31 07:09:45 Problem: Falls, Risk of Goal: Absence of falls Outcome: Progressing as expected Problem: Procedure Routine Goal: Absence of post-procedure complications Outcome: Progressing as expected Goal: Knowledge of procedure Outcome: Progressing as expected Problem: Pain Goal: Control of pain at or below patient's documented comfort goal Outcome: Progressing as expected Goal: Reduction in pain sensation Outcome: Progressing as expected Problem: Discharge Planning Goal: Adequate for discharge Outcome: Progressing as expected Goal: Effective communication Outcome: Progressing as expected Problem: Skin integrity Impaired (Risk or Actual) Goal: Wound healing Outcome: Progressing as expected Goal: Prevention of new skin breakdown Outcome: Progressing as expected T Marissa Martin RN [facility] 2024-12-30 09:32:20 Problem: Falls, Risk of Goal: Absence of falls Outcome: Progressing as expected Problem: Procedure Routine Goal: Absence of post-procedure complications Outcome: Progressing as expected Goal: Knowledge of procedure Outcome: Progressing as expected Problem: Pain Goal: Control of pain at or below patient's documented comfort goal Outcome: Progressing as expected Goal: Reduction in pain sensation Outcome: Progressing as expected Problem: Discharge Planning Goal: Adequate for discharge Outcome: Progressing as expected Goal: Effective communication Outcome: Progressing as expected Problem: Skin integrity Impaired (Risk or Actual) Goal: Wound healing Outcome: Progressing as expected Goal: Prevention of new skin breakdown Outcome: Progressing as expected andy [facility] 2024-12-30 04:21:21 Problem: Falls, Risk of Goal: Absence of falls Outcome: Progressing as expected Problem: Procedure Routine Goal: Absence of post-procedure complications Outcome: Progressing as expected Goal: Knowledge of procedure Outcome: Progressing as expected Problem: Pain Goal: Control of pain at or below patient's documented comfort goal Outcome: Progressing as expected Goal: Reduction in pain sensation Outcome: Progressing as expected Problem: Discharge Planning Goal: Adequate for discharge Outcome: Progressing as expected Goal: Effective communication Outcome: Progressing as expected Problem: Skin integrity Impaired (Risk or Actual) Goal: Wound healing Outcome: Progressing as expected Goal: Prevention of new skin breakdown Outcome: Progressing as expected [facility] [employer] 2024-12-29 17:57:13 Problem: Falls, Risk of Goal: Absence of falls Outcome: Progressing as expected Problem: Procedure Routine Goal: Absence of post-procedure complications Outcome: Progressing as expected Goal: Knowledge of procedure Outcome: Progressing as expected Problem: Pain Goal: Control of pain at or below patient's documented comfort goal Outcome: Progressing as expected Goal: Reduction in pain sensation Outcome: Progressing as expected Problem: Discharge Planning Goal: Adequate for discharge Outcome: Progressing as expected Goal: Effective communication Outcome: Progressing as expected Problem: Skin integrity Impaired (Risk or Actual) Goal: Wound healing Outcome: Progressing as expected Goal: Prevention of new skin breakdown Outcome: Progressing as expected [facility] [employer] 2024-12-29 05:38:24 Problem: Falls, Risk of Goal: Absence of falls Outcome: Progressing as expected Problem: Procedure Routine Goal: Absence of post-procedure complications Outcome: Progressing as expected Goal: Knowledge of procedure Outcome: Progressing as expected Problem: Pain Goal: Control of pain at or below patient's documented comfort goal Outcome: Progressing as expected Goal: Reduction in pain sensation Outcome: Progressing as expected Problem: Discharge Planning Goal: Adequate for discharge Outcome: Progressing as expected Goal: Effective communication Outcome: Progressing as expected Problem: Skin integrity Impaired (Risk or Actual) Goal: Wound healing Outcome: Progressing as expected Goal: Prevention of new skin breakdown Outcome: Progressing as expected [facility] 2024-12-28 18:53:37 Problem: Pain Goal: Control of pain at or below patient's documented comfort goal Outcome: Not progressing as expected Goal: Reduction in pain sensation Outcome: Not progressing as expected Problem: Falls, Risk of Goal: Absence of falls Outcome: Progressing as expected [facility] 2024-12-28 04:29:28 Problem: Falls, Risk of Goal: Absence of falls Outcome: Progressing as expected Problem: Procedure Routine Goal: Absence of post-procedure complications Outcome: Progressing as expected Goal: Knowledge of procedure Outcome: Progressing as expected Problem: Pain Goal: Control of pain at or below patient's documented comfort goal Outcome: Progressing as expected Goal: Reduction in pain sensation Outcome: Progressing as expected Problem: Discharge Planning Goal: Adequate for discharge Outcome: Progressing as expected Goal: Effective communication Outcome: Progressing as expected Problem: Skin integrity Impaired (Risk or Actual) Goal: Wound healing Outcome: Progressing as expected Goal: Prevention of new skin breakdown Outcome: Progressing as expected [facility] 2024-12-27 16:36:59 Problem: Falls, Risk of Goal: Absence of falls Outcome: Progressing as expected Problem: Procedure Routine Goal: Absence of post-procedure complications Outcome: Progressing as expected Goal: Knowledge of procedure Outcome: Progressing as expected Problem: Pain Goal: Control of pain at or below patient's documented comfort goal Outcome: Progressing as expected Goal: Reduction in pain sensation Outcome: Progressing as expected Problem: Discharge Planning Goal: Adequate for discharge Outcome: Progressing as expected Goal: Effective communication Outcome: Progressing as expected Problem: Skin integrity Impaired (Risk or Actual) Goal: Wound healing Outcome: Progressing as expected Goal: Prevention of new skin breakdown Outcome: Progressing as expected [facility] 2024-12-27 09:11:58 Patient refusing all medications and blood work at this time. [facility] Linda Burgos Mai, RN [facility] 2024-12-27 04:20:25 Problem: Falls, Risk of Goal: Absence of falls Outcome: Progressing as expected Problem: Procedure Routine Goal: Absence of post-procedure complications Outcome: Progressing as expected Goal: Knowledge of procedure Outcome: Progressing as expected Problem: Pain Goal: Control of pain at or below patient's documented comfort goal Outcome: Progressing as expected Goal: Reduction in pain sensation Outcome: Progressing as expected Problem: Discharge Planning Goal: Adequate for discharge Outcome: Progressing as expected Goal: Effective communication Outcome: Progressing as expected [facility] 2024-12-26 19:06:36 Problem: Falls, Risk of Goal: Absence of falls Outcome: Progressing as expected Problem: Pain Goal: Control of pain at or below patient's documented comfort goal Outcome: Not progressing as expected Goal: Reduction in pain sensation Outcome: Not progressing as expected Problem: Skin integrity Impaired (Risk or Actual) Goal: Wound healing Outcome: Progressing as expected Goal: Prevention of new skin breakdown Outcome: Progressing as expected [facility] 2024-12-26 02:15:56 Problem: Falls, Risk of Goal: Absence of falls Outcome: Progressing as expected Problem: Pain Goal: Control of pain at or below patient's documented comfort goal Outcome: Progressing as expected Goal: Reduction in pain sensation Outcome: Progressing as expected Problem: Discharge Planning Goal: Adequate for discharge Outcome: Progressing as expected Goal: Effective communication Outcome: Progressing as expected Problem: Skin integrity Impaired (Risk or Actual) Goal: Wound healing Outcome: Progressing as expected Goal: Prevention of new skin breakdown Outcome: Progressing as expected [facility] [employer] 2024-12-25 04:54:13 Problem: Falls, Risk of Goal: Absence of falls Outcome: Progressing as expected Problem: Procedure Routine Goal: Absence of post-procedure complications Outcome: Progressing as expected Goal: Knowledge of procedure Outcome: Progressing as expected Problem: Pain Goal: Control of pain at or below patient's documented comfort goal Outcome: Progressing as expected Goal: Reduction in pain sensation Outcome: Progressing as expected Problem: Skin integrity Impaired (Risk or Actual) Goal: Wound healing Outcome: Progressing as expected Goal: Prevention of new skin breakdown Outcome: Progressing as expected Problem: Discharge Planning Goal: Adequate for discharge Outcome: Progressing as expected Goal: Effective communication Outcome: Progressing as expected [facility] [employer] 2024-12-24 11:21:23 Problem: Falls, Risk of Goal: Absence of falls Outcome: Progressing as expected Problem: Procedure Routine Goal: Absence of post-procedure complications Outcome: Progressing as expected Goal: Knowledge of procedure Outcome: Progressing as expected Problem: Pain Goal: Control of pain at or below patient's documented comfort goal Outcome: Progressing as expected Goal: Reduction in pain sensation Outcome: Progressing as expected Problem: Discharge Planning Goal: Adequate for discharge Outcome: Progressing as expected Goal: Effective communication Outcome: Progressing as expected . [facility] [employer] 2024-12-24 03:24:18 Problem: Falls, Risk of Goal: Absence of falls Outcome: Progressing as expected Problem: Procedure Routine Goal: Absence of post-procedure complications Outcome: Progressing as expected Goal: Knowledge of procedure Outcome: Progressing as expected Problem: Pain Goal: Control of pain at or below patient's documented comfort goal Outcome: Progressing as expected Goal: Reduction in pain sensation Outcome: Progressing as expected Problem: Discharge Planning Goal: Adequate for discharge Outcome: Progressing as expected Goal: Effective communication Outcome: Progressing as expected [facility] 2024-12-23 17:31:54 1 Quickclot used as dressing on Right Foot per Dr. Thakkar Mars Buitrago RN [facility] 2024-12-23 14:10:00 DATE: 12/23/2024 PRE-OPERATIVE DIAGNOSIS: PAD (peripheral artery disease) [I73.9] S/P transmetatarsal amputation of foot, right [Z89.431] Nonhealing transmetatarsal amputation POST-OPERATIVE DIAGNOSIS: Same PROCEDURE: Procedure(s): Right - WOUND DEBRIDEMENT - Wound Class: Dirty - infected, abscess, pus, gangrene - Incision Closure: No Layers Closed / Incision Left Open Right - ANGIOGRAM VIA LOWER EXTREMITY ACCESS - Wound Class: Clean - uninfected, no tract entered - Incision Closure: Deep and Superficial Layers Right - VASCULAR STENTING - Wound Class: Clean - uninfected, no tract entered - Incision Closure: Deep and Superficial Layers Right lower extremity arteriogram Excisional debridement of transmetatarsal amputation including bone muscle skin and subcutaneous tissue Right lower extremity angioplasty and stenting with deep vein arterialization ATTENDING SURGEON: Nader Casanova MD ENGINE LATHE TENDER(S): Surgeon(s): Nader Casanova MD Davis, Alexis, MD Whittington, Eric, MD Singh, Aman Deep, DO ANESTHESIA: General EBL: 100cc INDICATION FOR PROCEDURE: This is a patient who had presented with tissue loss of the right lower extremity. She had undergone a transmetatarsal amputation as well as an attempt at revascularization. Patient does however have severe small vessel disease of the foot. There is likely inadequate flow to heal the transmetatarsal amputation which demonstrated no progress toward healing. As a last option prior to below the knee amputation we suggested a trial of deep vein arterialization. Patient and family agreed to proceed. Past Medical History: Diagnosis Date Abnormal chest CT calcified granuloma 8mm RUL per chest CT 12/12/16, no f/u needed per Dr. Becerra Blood dyscrasia DM2 (diabetes mellitus, type 2) noton medications due to controlled. History of gangrene 2013 History of nocturia Hyperlipidemia Hypovitaminosis D 01/05/2018 Leiomyoma of uterus resolved ? in her 20's MSSA (methicillin susceptible Staphylococcus aureus) infection 07/30/2018 Primary hypertension 12/24/2024 Pulmonary nodules 02/16/2019 RA (rheumatoid arthritis) Superficial thrombophlebitis Thyroid disease Urinary incontinence Urinary urgency DESCRIPTION OF PROCEDURE: Patient was taken to the operating room and placed on the operating table in the supine position. After anesthesia was begun the patient was sterilely prepped and draped over the right leg in the usual fashion. We began the procedure with open exposure of the superficial femoral artery upper thigh. Incision was made and the skin dissection was carried down to the subcutaneous tissues electrocautery. The sartorius muscle was mobilized laterally and we exposed the underlying artery. This was dissected out over a short segment and U-stitch was placed in the anterior surface of the artery. The artery was then accessed with a micropuncture access kit. Sheath was placed in the artery. We then accessed a pedal arch vein. This was done with a micropuncture kit. Micropuncture sheath was advanced into the vein and V18 wire was directed up into the posterior tibial vein and up toward the popliteal vein. We then dilated the tract and placed a long 6 Thai sheath. A 6 Thai snare was advanced up and to the vein adjacent to the tibioperoneal trunk. We then passed a Outback catheter over an 014 wire down into the tibioperoneal trunk. The Outback catheter was used to puncture the tract between the artery and the vein at the level of the tibioperoneal trunk. Wire was passed into the vein and snared. It was brought out the plantar vein as a body floss. Patient was heparinized. We then completely dilated the tract with a 4 mm balloon from the tibioperoneal trunk all the way down to the foot. We deployed a series of Viabahn stents from the artery into the vein and the down to the level of the medial malleolus. These were aggressively postdilated. There is not initially good flow. We then removed through and through wire and from the upper access we navigated a V18 wire down into the pedal arch veins. We then aggressively angioplastied a tract into the pedal arch. After this maneuver there was excellent flow through the stents and the pulse in the veins near the medial malleolus. We remove the access from the foot and held pressure for hemostasis. We removed the sheath and catheters and wires and then tied down the U-stitch of the SFA to achieve hemostasis. We then debrided the transmetatarsal amputation. We utilized scalpel and scissors as well as a rongeur to debride necrotic bone muscle soft tissue and skin at the surface of the transmetatarsal amputation. There was good bleeding and the wound was cleaned to close the debridement. It was proximally 6 x 8 cm. Hemostasis was achieved and the arterial incision was closed with 3-0 Vicryl and 4-0 Monocryl. Dermabond was applied to the skin. Patient was awakened and taken to the recovery area in stable condition. IMPLANTS: Implant Name Type Inv. Item Serial No. Air And Water Filler Lot No. LRB No. Used Action STENT VIABAHN 0.018 [id number] GORE #[id number] - [id number] Stent STENT VIABAHN 0.018 [id number] 6FR GORE #[id number] [employer] NA Right 1 Implanted STENT GORE VIABAHN .018 [id number] #[id number] - [id number] Stent STENT GORE VIABAHN .018 [id number] 6FR #[id number] [employer] NA Right 1 Implanted ATTESTATION: I was present in the OR for all of the hatfield portions of the procedure and immediately available throughout the entire procedure. [facility] 2024-12-23 14:10:00 BRIEF OPERATIVE NOTE Date of Surgery: 12/23/2024 Surgeons and Role: * Nader Casanova MD - Primary * Luis Jay MD - Assisting * Jesus Thakkar MD - Resident - Assisting Pre-Op Diagnosis: PAD (peripheral artery disease) [I73.9] S/P transmetatarsal amputation of foot, right [Z89.431] Post-Op Diagnosis Codes: * PAD (peripheral artery disease) [I73.9] * S/P transmetatarsal amputation of foot, right [Z89.431] Procedures: Right superficial femoral artery cutdown and primary repair of superficial femoral artery Right lower extremity arteriogram Balloon angioplasty of the tibioperoneal trunk and posterior tibial artery using a 4 mm x 80 mm Guido balloon Right lower extremity deep venous arterialization (stenting of the right tibioperoneal trunk into the posterior tibial vein using a 5 mm X 25 cm and 5mm x 5cm Viabahn stent with post stenting balloon angioplasty using a 5 mm x 80 mm Guido balloon) Selective 3rd order cannulation of the posterior tibial artery Right transmetatarsal amputation debridement (down to and including bone) CPT: 86796, 47362, 10887, 16816, 42876, 18294, 10196, 60037, 93604, 82978, 23037, 51129, Any Complications Encounters: None apparent Estimated Blood Loss: 300cc Specimens Removed: ID Type Source Tests Collected by Time Destination 1 : HARDWARE RIGHT GREAT TOEVERIFIED LABEL DOCUMENTATION W/ SURG PATH VIA PHONE CALL Tissue TOE SURGICAL PATHOLOGY EXAM Nader Casanova MD 12/23/2024 1703 Implant Name Type Inv. Item Serial No. Air And Water Filler Lot No. LRB No. Used Action STENT VIABAHN 0.018 [id number] 6FR GORE #[id number] - [id number] Stent STENT VIABAHN 0.018 [id number] 6FR GORE #[id number] [employer] NA Right 1 Implanted STENT GORE VIABAHN .018 [id number] 6FR #[id number] - [id number] Stent STENT GORE VIABAHN .018 [id number] 6FR #[id number] [employer] NA Right 1 Implanted Patient's Condition: Stable Findings: See full operative report Any other important information: - Start 500 U/hr hep gtt at 12a - Will reapply wound vac on next dressing change Please see dictated operative report for additional detail. Jesus Thakkar MD PGY-5, Vascular Surgery Cosigned by Nader Casanova MD at 12/25/2024 4:42 PM CDT Associated attestation - Nader Casanova MD - 12/25/2024 4:42 PM CDT I was present in the OR for all of the hatfield portions of the procedure and immediately available throughout the entire procedure. Nader Casanova MD [facility] 2024-12-20 09:23:39 Note has been sent to [facility]. Kaci Kearns RN [facility] 2024-12-20 09:17:33 Inocencia Wu is a 69 year old female Nelly from [facility] calling and requesting orders and visit notes from 12/19/2024 appointment. Please fax to [phone] Neelam Hartman [facility] 2024-12-19 15:21:22 Form faxed back to [facility] so they may contact pt per fax received. Dara Trujillo RN [facility] 2024-12-19 14:58:20 Images from the original note were not included. Karyn Jenkins [facility] 2024-12-19 14:38:31 Orders have been faxed. Dara Trujillo RN [facility] 2024-12-19 08:38:04 Demo, OV notes printed. Rx awaiting provider signature. Dara Trujillo RN [facility] 2024-12-18 14:06:42 Sent to printer 1. Dependent for wheelchair mobility - Miscellaneous Medical Supply Misc; orders for pads, pull ups and incontinent supplies like wipes. Dispense: 100 Each; Refill: 2 2. S/P transmetatarsal amputation of foot, right - Miscellaneous Medical Supply Misc; orders for pads, pull ups and incontinent supplies like wipes. Dispense: 100 Each; Refill: 2 3. Impaired mobility and ADLs - Miscellaneous Medical Supply Misc; orders for pads, pull ups and incontinent supplies like wipes. Dispense: 100 Each; Refill: 2 4. Other urinary incontinence - Miscellaneous Medical Supply Misc; orders for pads, pull ups and incontinent supplies like wipes. Dispense: 100 Each; Refill: 2 [facility] 2024-12-14 14:52:26 [address]outing to provider to place orders for incontinence supplies. Chelsea Obrien MA [facility] 2024-12-14 14:41:59 Yessy with [facility] is on the line with pt requesting orders for pads, pull ups and incontinent supplies like wipes. [facility], demographics and rx. Pt will come in to sign a release for HIPAA so that [facility] can assist. [facility] # Ama Francisco [facility] 2024-11-29 16:15:57 Problem: Discharge Planning Goal: Adequate for discharge Outcome: Adequate for discharge Goal: Effective communication Outcome: Adequate for discharge Problem: Fluid Volume - Imbalanced Goal: Absence of signs and symptoms of imbalanced fluid volume Outcome: Adequate for discharge Problem: Infection, Risk of or Actual Goal: Absence of infection Outcome: Adequate for discharge Problem: Nutrition Deficit Goal: Adequate nutritional intake Outcome: Adequate for discharge Problem: Pain Goal: Control of pain at or below patient's documented comfort goal Outcome: Adequate for discharge Goal: Reduction in pain sensation Outcome: Adequate for discharge Problem: Skin integrity Impaired (Risk or Actual) Goal: Wound healing Outcome: Adequate for discharge Goal: Prevention of new skin breakdown Outcome: Adequate for discharge Problem: Tissue Perfusion - Altered, Risk of Goal: Hemodynamically stable Outcome: Adequate for discharge Problem: Falls, Risk of Goal: Absence of falls Outcome: Adequate for discharge Problem: Venous Thromboembolism, (actual or risk of) Goal: Absence of venous thromboembolism (Risk) Outcome: Adequate for discharge Problem: Mental Status - Impaired Goal: Able to achieve maximum level of cognitive ability Outcome: Adequate for discharge SE Jaeger RN [facility] 2024-11-29 01:30:05 Problem: Discharge Planning Goal: Adequate for discharge Outcome: Progressing as expected Goal: Effective communication Outcome: Progressing as expected Problem: Fluid Volume - Imbalanced Goal: Absence of signs and symptoms of imbalanced fluid volume Outcome: Progressing as expected Problem: Infection, Risk of or Actual Goal: Absence of infection Outcome: Progressing as expected Problem: Nutrition Deficit Goal: Adequate nutritional intake Outcome: Not progressing as expected Problem: Pain Goal: Control of pain at or below patient's documented comfort goal Outcome: Not progressing as expected Goal: Reduction in pain sensation Outcome: Progressing as expected Problem: Skin integrity Impaired (Risk or Actual) Goal: Wound healing Outcome: Progressing as expected Goal: Prevention of new skin breakdown Outcome: Progressing as expected Problem: Tissue Perfusion - Altered, Risk of Goal: Hemodynamically stable Outcome: Progressing as expected Problem: Falls, Risk of Goal: Absence of falls Outcome: Progressing as expected Problem: Venous Thromboembolism, (actual or risk of) Goal: Absence of venous thromboembolism (Risk) Outcome: Progressing as expected Problem: Mental Status - Impaired Goal: Able to achieve maximum level of cognitive ability Outcome: Not progressing as expected E NETWORK ENGINEER [facility] 2024-11-28 21:02:00 RN educated patient and patient daughter about importance of increasing protein intake for wound healing. Patient daughter stated patient was not eating and patient had recent toe amputation, patient followed medications regiment as prescribed but calorie intake not followed. RN explained to patient and patient daughter about the importance of consuming caloric intake daily, increasing protein intake, and zinc supplements to aid in wound healing. Patient showed no signs of learning, patient daughter verbalized understanding and stated she had been looking up stores to buy ensure and had purchased zinc supplements already. [facility] Manish Ibarra RN [facility] 2024-11-28 09:16:10 Problem: Discharge Planning Goal: Adequate for discharge Outcome: Not progressing as expected Goal: Effective communication Outcome: Not progressing as expected Problem: Fluid Volume - Imbalanced Goal: Absence of signs and symptoms of imbalanced fluid volume Outcome: Progressing as expected Problem: Infection, Risk of or Actual Goal: Absence of infection Outcome: Progressing as expected Problem: Nutrition Deficit Goal: Adequate nutritional intake Outcome: Progressing as expected Problem: Pain Goal: Control of pain at or below patient's documented comfort goal Outcome: Progressing as expected Goal: Reduction in pain sensation Outcome: Progressing as expected Problem: Skin integrity Impaired (Risk or Actual) Goal: Wound healing Outcome: Progressing as expected Goal: Prevention of new skin breakdown Outcome: Progressing as expected Problem: Tissue Perfusion - Altered, Risk of Goal: Hemodynamically stable Outcome: Progressing as expected Problem: Falls, Risk of Goal: Absence of falls Outcome: Progressing as expected Problem: Venous Thromboembolism, (actual or risk of) Goal: Absence of venous thromboembolism (Risk) Outcome: Progressing as expected Problem: Mental Status - Impaired Goal: Able to achieve maximum level of cognitive ability Outcome: Not progressing as expected [facility] 2024-11-28 05:04:54 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 When asked why she was crying she stated that she wanted me to "Take my shoes out of the refrigerator." I can't find the remote. Or, I don't want to watch the ugly women on TV." I tried to explain to her that her shoes were in the cabinet and showed them to her. I gave her the call light and she refused to accept it, so I placed it on her lap. She then said,"Oh, there it is." I tried to explain to her that it was Thursday and that she could more than likely watch her regular shows on Thursday. She cried out, "I don't want to watch them on Thursday!" She continued to cry out and refused to listen to everything I was trying to tell her. Patient refused all of her oral medications at HS. Multiple times I offered her pain medications because she stated that her for foot and leg hurt, but she only accepted pain at 1929 because she did not have to take it orally and was able to sleep until 2229. Patient started to yell out again and I went in to the room. I asked her if she was in pain, needed a drink or snack and she refused everything I offered. I asked her not yell out because she was disrupting the other patients that were trying to sleep. She then stated that she would take pain medication as long as it wasn't in pill form because she hates to take pills. I told her Dilaudid was available and she accepted it at 0003. She accepted oral medication at 0243 due to her right foot and leg pain. SE Betancourt RN [facility] 2024-11-28 03:05:47 Problem: Discharge Planning Goal: Adequate for discharge Outcome: Progressing as expected Goal: Effective communication Outcome: Progressing as expected Problem: Fluid Volume - Imbalanced Goal: Absence of signs and symptoms of imbalanced fluid volume Outcome: Progressing as expected Problem: Infection, Risk of or Actual Goal: Absence of infection Outcome: Progressing as expected Problem: Nutrition Deficit Goal: Adequate nutritional intake Outcome: Progressing as expected Problem: Pain Goal: Control of pain at or below patient's documented comfort goal Outcome: Progressing as expected Goal: Reduction in pain sensation Outcome: Progressing as expected Problem: Skin integrity Impaired (Risk or Actual) Goal: Wound healing Outcome: Progressing as expected Goal: Prevention of new skin breakdown Outcome: Progressing as expected Problem: Tissue Perfusion - Altered, Risk of Goal: Hemodynamically stable Outcome: Progressing as expected Problem: Falls, Risk of Goal: Absence of falls Outcome: Progressing as expected Problem: Venous Thromboembolism, (actual or risk of) Goal: Absence of venous thromboembolism (Risk) Outcome: Progressing as expected Problem: Mental Status - Impaired Goal: Able to achieve maximum level of cognitive ability Outcome: Not progressing as expected [facility] 2024-11-27 13:18:52 Problem: Discharge Planning Goal: Adequate for discharge 11/27/20241317 by Kenisha Bhandari RN Outcome: Progressing as expected 11/27/20241317 by Kenisha Bhandari RN Outcome: Progressing as expected Goal: Effective communication 11/27/20241317 by Kenisha Bhandari RN Outcome: Progressing as expected 11/27/20241317 by Kenisha Bhandari RN Outcome: Progressing as expected Problem: Fluid Volume - Imbalanced Goal: Absence of signs and symptoms of imbalanced fluid volume 11/27/20241317 by eKnisha Bhandari RN Outcome: Progressing as expected 11/27/20241317 by Kenisha Bhandari RN Outcome: Progressing as expected Problem: Infection, Risk of or Actual Goal: Absence of infection 11/27/20241317 by Kenisha Bhandari RN Outcome: Progressing as expected 11/27/20241317 by Kenisha Bhandari RN Outcome: Progressing as expected Problem: Nutrition Deficit Goal: Adequate nutritional intake 11/27/20241317 by Kenisha Bhandari RN Outcome: Not progressing as expected 11/27/20241317 by Kenisha Bhandari RN Outcome: Progressing as expected Problem: Pain Goal: Control of pain at or below patient's documented comfort goal 11/27/20241317 by Kenisha Bhandari RN Outcome: Progressing as expected 11/27/20241317 by Kenisha Bhandari RN Outcome: Progressing as expected Goal: Reduction in pain sensation 11/27/20241317 by Kenisha Bhandari RN Outcome: Progressing as expected 11/27/20241317 by Kenisha Bhandari RN Outcome: Progressing as expected Problem: Skin integrity Impaired (Risk or Actual) Goal: Wound healing 11/27/20241317 by Kenisha Bhandari RN Outcome: Progressing as expected 11/27/20241317 by Kenisha Bhandari RN Outcome: Progressing as expected Goal: Prevention of new skin breakdown 11/27/20241317 by Kenisha Bhandari RN Outcome: Progressing as expected 11/27/20241317 by Kenisha Bhandari RN Outcome: Progressing as expected Problem: Tissue Perfusion - Altered, Risk of Goal: Hemodynamically stable 11/27/20241317 by Kenisha Bhandari RN Outcome: Progressing as expected 11/27/20241317 by Kenisha Bhandari RN Outcome: Progressing as expected Problem: Falls, Risk of Goal: Absence of falls 11/27/20241317 by Kenisha Bhandari RN Outcome: Progressing as expected 11/27/20241317 by Kenisha Bhandari RN Outcome: Progressing as expected Problem: Venous Thromboembolism, (actual or risk of) Goal: Absence of venous thromboembolism (Risk) 11/27/20241317 by Kenisha Bhandari RN Outcome: Progressing as expected 11/27/20241317 by Kenisha Bhandari RN Outcome: Progressing as expected [facility] 2024-11-27 07:50:16 Images from the original note were not included. General Vancomycin Note [facility] Clinical Pharmacist Consult Consulting Service: Vancomycin (Pharmacy to Dose) Pharmacy Vancomycin Therapeutic Monitoring Note Patient Name MRN Sex Unit Inocencia Wu [id number] 1955 female Indication for vancomycin and goal Age Total Body Weight Skin and Soft Tissue Infection AUC/AC 400-600 mcg*hr/ mL 69 year old Wt Readings from Last 1 Encounters: 11/21/24 66 kg (145 lb 8 oz) Primary Physician: Dr. Paz ID Physician, if following: None Duration of Antibiotics: TBD (11/22/24 - present) Concurrent Antibiotics: Cefepime 1 gm IV Q12H (11/24/24 - 11/26/24) Cefepime 1gm IV Q8H (11/26/24-present) Zosyn 3.375 gm IV Q8H (11/22/24 - 11/24/24) Microbiology: Blood culture (11/21/24): no growth MRSA/MSSA PCR, Nares (11/21/24) - MRSA negative; MSSA positive Laboratory Data and Vancomycin Dosing CREATININE Date/Time Value Ref Range Status 11/21/2024 04:51 PM 1.19 (H) 0.50 - 1.04 mg/dL Final 10/29/2024 03:37 AM 0.46 (L) 0.50 - 1.04 mg/dL Final 10/27/2024 04:42 AM 0.60 0.50 - 1.04 mg/dL Final 06/05/2014 05:33 AM 0.52 0.50 - 1.04 MG/DL Final 06/04/2014 04:17 AM 0.50 0.50 - 1.04 MG/DL Final 06/01/2014 12:32 AM 0.55 0.50 - 1.04 MG/DL Final Creatinine, Serum-LC Date/Time Value Ref Range Status 01/22/2018 08:55 AM 0.63 0.57 - 1.00 mg/dL Final 10/28/2017 12:40 PM 0.58 0.44 - 1.19 mg/dL Final 09/04/2017 04:00 PM 0.58 0.57 - 1.00 mg/dL Final CREATININE-Q Date/Time Value Ref Range Status 11/02/2018 11:55 AM 0.61 0.50 - 0.99 mg/dL Final Comment: For patients >49 years of age, the reference limit for Creatinine is approximately 13% higher for people identified as -Chilean. Date CrCl (mL/min) Dosing Regimen and frequency @ Times (mg) Vancomycin Level @ Time (mcg/mL) 11/22/24 39 1250 mg IV Q24H given @ 0300 - 11/23/24 46.4 1250 mg IV Q24H given @ 0348 - 11/24/24 43.8 1250 mg IV Q24H given @ 0638 12.8 mcg/mL @ 0424 11/25/24 58.9 1000 mg IV Q24H given @ 0640 - 11/26/24 69.4 1250mg IV @0552 Increased dose to 1500mg Q24H - 11/27/24 74.9 1500mg IV Q24H @ 0535 16.7@03:32 - Assessment & Plan Based on patient-specific levels and Bayesian monitoring, the current regimen is estimated to yield and AUC/AC of 548.43 mcg*hr/ml, which is therapeutic. Plan is to: Adjust regimen to: Vancomycin 1500 mg IV Q24H. Regimen is estimated to yield an AUC/AC of 548.43mcg*hr/mL. Plan to draw next level on: _11/30/24_ @ _0500_if more doses are ordered Thank you for allowing pharmacy to participate in the care of this patient. Please feel free to contact us with any questions or concerns. Mae Rubio RPH 11/27/2024 07:45 [facility] Department of Pharmacy - [facility] Phone: ADC: [phone] E NETWORK ENGINEER Mae Rubio [facility] 2024-11-26 23:39:59 Problem: Discharge Planning Goal: Adequate for discharge Outcome: Progressing as expected Goal: Effective communication Outcome: Progressing as expected Problem: Fluid Volume - Imbalanced Goal: Absence of signs and symptoms of imbalanced fluid volume Outcome: Progressing as expected Problem: Infection, Risk of or Actual Goal: Absence of infection Outcome: Progressing as expected Problem: Nutrition Deficit Goal: Adequate nutritional intake Outcome: Progressing as expected Problem: Pain Goal: Control of pain at or below patient's documented comfort goal Outcome: Progressing as expected Goal: Reduction in pain sensation Outcome: Progressing as expected Problem: Skin integrity Impaired (Risk or Actual) Goal: Wound healing Outcome: Progressing as expected Goal: Prevention of new skin breakdown Outcome: Progressing as expected Problem: Tissue Perfusion - Altered, Risk of Goal: Hemodynamically stable Outcome: Progressing as expected Problem: Falls, Risk of Goal: Absence of falls Outcome: Progressing as expected Problem: Venous Thromboembolism, (actual or risk of) Goal: Absence of venous thromboembolism (Risk) Outcome: Progressing as expected [facility] 2024-11-26 14:06:32 Problem: Discharge Planning Goal: Adequate for discharge Outcome: Progressing as expected Goal: Effective communication Outcome: Progressing as expected Problem: Fluid Volume - Imbalanced Goal: Absence of signs and symptoms of imbalanced fluid volume Outcome: Progressing as expected Problem: Infection, Risk of or Actual Goal: Absence of infection Outcome: Progressing as expected Problem: Nutrition Deficit Goal: Adequate nutritional intake Outcome: Progressing as expected Problem: Pain Goal: Control of pain at or below patient's documented comfort goal Outcome: Progressing as expected Goal: Reduction in pain sensation Outcome: Progressing as expected Problem: Skin integrity Impaired (Risk or Actual) Goal: Wound healing Outcome: Progressing as expected Goal: Prevention of new skin breakdown Outcome: Progressing as expected Problem: Tissue Perfusion - Altered, Risk of Goal: Hemodynamically stable Outcome: Progressing as expected Problem: Falls, Risk of Goal: Absence of falls Outcome: Progressing as expected Problem: Venous Thromboembolism, (actual or risk of) Goal: Absence of venous thromboembolism (Risk) Outcome: Progressing as expected [facility] 2024-11-26 08:38:10 Images from the original note were not included. General Vancomycin Note [facility] Clinical Pharmacist Consult Consulting Service: Vancomycin (Pharmacy to Dose) Pharmacy Vancomycin Therapeutic Monitoring Note Patient Name VIRIDIANA Sex Unit Inocencia Wu [id number] 1955 female Indication for vancomycin and goal Age Total Body Weight Skin and Soft Tissue Infection AUC/AC 400-600 mcg*hr/ mL 69 year old Wt Readings from Last 1 Encounters: 11/21/24 66 kg (145 lb 8 oz) Primary Physician: Dr. Maday HUNT Physician, if following: None Duration of Antibiotics: TBD (11/22/24 - present) Concurrent Antibiotics: Cefepime 1 gm IV Q12H (11/24/24 - 11/26/24) Cefepime 1gm IV Q8H (11/26/24-present) Zosyn 3.375 gm IV Q8H (11/22/24 - 11/24/24) Microbiology: Blood culture (11/21/24): no growth at 72 hours MRSA/MSSA PCR, Nares (11/21/24) - MRSA negative; MSSA positive Laboratory Data and Vancomycin Dosing CREATININE Date/Time Value Ref Range Status 11/21/2024 04:51 PM 1.19 (H) 0.50 - 1.04 mg/dL Final 10/29/2024 03:37 AM 0.46 (L) 0.50 - 1.04 mg/dL Final 10/27/2024 04:42 AM 0.60 0.50 - 1.04 mg/dL Final 06/05/2014 05:33 AM 0.52 0.50 - 1.04 MG/DL Final 06/04/2014 04:17 AM 0.50 0.50 - 1.04 MG/DL Final 06/01/2014 12:32 AM 0.55 0.50 - 1.04 MG/DL Final Creatinine, Serum-LC Date/Time Value Ref Range Status 01/22/2018 08:55 AM 0.63 0.57 - 1.00 mg/dL Final 10/28/2017 12:40 PM 0.58 0.44 - 1.19 mg/dL Final 09/04/2017 04:00 PM 0.58 0.57 - 1.00 mg/dL Final CREATININE-Q Date/Time Value Ref Range Status 11/02/2018 11:55 AM 0.61 0.50 - 0.99 mg/dL Final Comment: For patients >49 years of age, the reference limit for Creatinine is approximately 13% higher for people identified as -Chilean. Date CrCl (mL/min) Dosing Regimen and frequency @ Times (mg) Vancomycin Level @ Time (mcg/mL) 11/22/24 39 1250 mg IV Q24H given @ 0300 - 11/23/24 46.4 1250 mg IV Q24H given @ 0348 - 11/24/24 43.8 1250 mg IV Q24H given @ 0638 12.8 mcg/mL @ 0424 11/25/24 58.9 1000 mg IV Q24H given @ 0640 - 11/26/24 69.4 1250mg IV @0552 Increased dose to 1500mg IV Q24H due @0630 on 11/27/24 - - - Assessment & Plan Scr trending down, CrCl improving. Based on patient-specific levels and Bayesian monitoring, the current regimen is estimated to yield and AUC/AC of 435.9 mcg*hr/ml, which is subtherapeutic. Plan is to: Adjust regimen to: Vancomycin 1500 mg IV Q24H. New regimen is estimated to yield an AUC/AC of 435.9mcg*hr/mL. Plan to draw next level on: _11/27/24_ @ _0500_ Thank you for allowing pharmacy to participate in the care of this patient. Please feel free to contact us with any questions or concerns. Mae Rubio RPH 11/26/2024 08:25 [facility] Department of Pharmacy - [facility] Phone: ADC: [phone] [facility] 2024-11-26 08:37:16 Images from the original note were not included. [facility] Clinical Pharmacist Protocol Patient Name MRN Sex Unit Inocencia Wu [id number] 1955 female - Serum Creatinine CrCl Actual Weight [place] Wt CREATININE Date/Time Value Ref Range Status 11/26/2024 04:29 AM 0.73 0.50 - 1.04 mg/dL Final 06/05/2014 05:33 AM 0.52 0.50 - 1.04 MG/DL Final Creatinine, Serum-LC Date/Time Value Ref Range Status 01/22/2018 08:55 AM 0.63 0.57 - 1.00 mg/dL Final CREATININE-Q Date/Time Value Ref Range Status 11/02/2018 11:55 AM 0.61 0.50 - 0.99 mg/dL Final Comment: For patients >49 years of age, the reference limit for Creatinine is approximately 13% higher for people identified as -Chilean. Estimated Creatinine Clearance: 69.4 mL/min (by C-G formula based on SCr of 0.73 mg/dL). Wt Readings from Last 1 Encounters: 11/25/24 70 kg (154 lb 5.2 oz) [place] body weight: 57 kg (125 lb 10.6 oz) Adjusted ideal body weight: 62.2 kg (137 lb 2 oz) Pharmacy Renal Dosing Note Based on our [employer] Policy 18.09 (Pharmacy Driven Renal Dose Adjustment), this patient qualifies for renal dose adjustment(s). We adjusted the dosing for the following medications: Cefepime (IV) dose 1gm Q12H was adjusted to 1gm Q8H Pharmacy will continue to follow the patient's clinical progress as necessary. Thank you for the opportunity to participate in the care of this patient. Mae Rubio RPH, PharmD [facility] Department of Pharmacy - [facility] Phone: ADC: [phone] E NETWORK ENGINEER [facility] 2024-11-26 08:30:00 Dressing change to right foot done. Explained process to pt. Removed dressing, cleansed with NS. Applied wet to dry NS gauze. Wrapped with Kerlix and seven wrap. Pt yelled out throughout dressing change. Pt continually kicked with the affected leg and cursing at me. I asked her multiple times to stop kicking. Pt attempting to pull herself up by the side rail and attempted to swat me with her left hand. Pt continued to kick her right leg throughout dressing change. Pt also refusing her PO meds at this time. SE Romeo RN [facility] 2024-11-26 03:41:16 Problem: Discharge Planning Goal: Adequate for discharge 11/26/2024339 by Marixa Betancourt RN Outcome: Progressing as expected 11/26/2024339 by Marixa Betancourt, ARNULFO Outcome: Progressing as expected Goal: Effective communication 11/26/2024339 by Marixa Betancourt, ARNULFO Outcome: Progressing as expected 11/26/2024339 by Marixa Betancourt RN Outcome: Progressing as expected Problem: Fluid Volume - Imbalanced Goal: Absence of signs and symptoms of imbalanced fluid volume 11/26/2024339 by Marixa Betancourt RN Outcome: Progressing as expected 11/26/2024339 by Marixa Betancourt RN Outcome: Progressing as expected Problem: Glucose Control - Initiated in Adult CC Goal: Glucose level within specified parameters 11/26/2024339 by Marixa Betancourt RN Outcome: Resolved 11/26/2024339 by Marixa Betancourt RN Outcome: Progressing as expected Problem: Infection, Risk of or Actual Goal: Absence of infection 11/26/2024339 by Marixa Betancourt RN Outcome: Progressing as expected 11/26/2024339 by Marixa Betancourt RN Outcome: Progressing as expected Problem: Nutrition Deficit Goal: Adequate nutritional intake 11/26/2024339 by Marixa Betancourt RN Outcome: Not progressing as expected 11/26/2024339 by Marixa Betancourt RN Outcome: Progressing as expected Problem: Pain Goal: Control of pain at or below patient's documented comfort goal 11/26/2024339 by Marixa Betancourt RN Outcome: Progressing as expected 11/26/2024339 by Marixa Betancourt RN Outcome: Progressing as expected Goal: Reduction in pain sensation 11/26/2024339 by Marixa Betancourt RN Outcome: Progressing as expected 11/26/2024339 by Marixa Betancourt RN Outcome: Progressing as expected Problem: Skin integrity Impaired (Risk or Actual) Goal: Wound healing 11/26/2024339 by Marixa Betancourt RN Outcome: Progressing as expected 11/26/2024339 by Marixa Betancourt RN Outcome: Progressing as expected Goal: Prevention of new skin breakdown 11/26/2024339 by Marixa Betancourt RN Outcome: Progressing as expected 11/26/2024339 by Marixa Betancourt RN Outcome: Progressing as expected Problem: Tissue Perfusion - Altered, Risk of Goal: Hemodynamically stable 11/26/2024339 by Marixa Betancourt RN Outcome: Progressing as expected 11/26/2024339 by Marixa Betancourt RN Outcome: Progressing as expected Problem: Falls, Risk of Goal: Absence of falls 11/26/2024339 by Marixa Betancourt RN Outcome: Progressing as expected 11/26/2024339 by Marixa Betancourt RN Outcome: Progressing as expected Problem: Venous Thromboembolism, (actual or risk of) Goal: Absence of venous thromboembolism (Risk) 11/26/2024339 by Marixa Betancourt RN Outcome: Progressing as expected 11/26/2024339 by Marixa Betancourt RN Outcome: Progressing as expected [facility] 2024-11-26 00:30:44 Family requesting [facility] Home Health Services upon discharge. [facility] 2024-11-25 19:46:40 Problem: Discharge Planning Goal: Adequate for discharge Outcome: Progressing as expected Goal: Effective communication Outcome: Progressing as expected Problem: Fluid Volume - Imbalanced Goal: Absence of signs and symptoms of imbalanced fluid volume Outcome: Progressing as expected Problem: Glucose Control - Initiated in Adult CC Goal: Glucose level within specified parameters Outcome: Progressing as expected Problem: Infection, Risk of or Actual Goal: Absence of infection Outcome: Progressing as expected Problem: Nutrition Deficit Goal: Adequate nutritional intake Outcome: Progressing as expected Problem: Pain Goal: Control of pain at or below patient's documented comfort goal Outcome: Progressing as expected Goal: Reduction in pain sensation Outcome: Progressing as expected Problem: Skin integrity Impaired (Risk or Actual) Goal: Wound healing Outcome: Progressing as expected Goal: Prevention of new skin breakdown Outcome: Progressing as expected Problem: Tissue Perfusion - Altered, Risk of Goal: Hemodynamically stable Outcome: Progressing as expected Problem: Falls, Risk of Goal: Absence of falls Outcome: Progressing as expected Problem: Venous Thromboembolism, (actual or risk of) Goal: Absence of venous thromboembolism (Risk) Outcome: Progressing as expected E NETWORK ENGINEER Jeri Paredes RN [facility] 2024-11-25 10:25:19 Images from the original note were not included. General Vancomycin Note [facility] Clinical Pharmacist Consult Consulting Service: Vancomycin (Pharmacy to Dose) Pharmacy Vancomycin Therapeutic Monitoring Note Patient Name VIRIDIANA MORGAN Sex Unit Inocencia Wu [id number] 1955 female Indication for vancomycin and goal Age Total Body Weight Skin and Soft Tissue Infection AUC/AC 400-600 mcg*hr/ mL 69 year old Wt Readings from Last 1 Encounters: 11/21/24 66 kg (145 lb 8 oz) Primary Physician: Dr. Paz ID Physician, if following: None Duration of Antibiotics: TBD (11/22/24 - present) Concurrent Antibiotics: Cefepime 1 gm IV Q12H (11/24/24 - present) Zosyn 3.375 gm IV Q8H (11/22/24 - 11/24/24) Microbiology: Blood culture (11/21/24): no growth at 72 hours MRSA/MSSA PCR, Nares (11/21/24) - MRSA negative; MSSA positive Laboratory Data and Vancomycin Dosing CREATININE Date/Time Value Ref Range Status 11/21/2024 04:51 PM 1.19 (H) 0.50 - 1.04 mg/dL Final 10/29/2024 03:37 AM 0.46 (L) 0.50 - 1.04 mg/dL Final 10/27/2024 04:42 AM 0.60 0.50 - 1.04 mg/dL Final 06/05/2014 05:33 AM 0.52 0.50 - 1.04 MG/DL Final 06/04/2014 04:17 AM 0.50 0.50 - 1.04 MG/DL Final 06/01/2014 12:32 AM 0.55 0.50 - 1.04 MG/DL Final Creatinine, Serum-LC Date/Time Value Ref Range Status 01/22/2018 08:55 AM 0.63 0.57 - 1.00 mg/dL Final 10/28/2017 12:40 PM 0.58 0.44 - 1.19 mg/dL Final 09/04/2017 04:00 PM 0.58 0.57 - 1.00 mg/dL Final CREATININE-Q Date/Time Value Ref Range Status 11/02/2018 11:55 AM 0.61 0.50 - 0.99 mg/dL Final Comment: For patients >49 years of age, the reference limit for Creatinine is approximately 13% higher for people identified as -Chilean. Date CrCl (mL/min) Dosing Regimen and frequency @ Times (mg) Vancomycin Level @ Time (mcg/mL) 11/22/24 39 1250 mg IV Q24H given @ 0300 - 11/23/24 46.4 1250 mg IV Q24H given @ 0348 - 11/24/24 43.8 1250 mg IV Q24H given @ 0638 12.8 mcg/mL @ 0424 11/25/24 58.9 1000 mg IV Q24H given @ 0640 - - - - Assessment & Plan Scr trending down, CrCl improving. Based on patient-specific levels and Bayesian monitoring, the current regimen is estimated to yield and AUC/AC of 346.18 mcg*hr/ml, which is subtherapeutic. Plan is to: Adjust regimen to: Vancomycin 1250 mg IV Q24H. New regimen is estimated to yield an AUC/AC of 427.97 mcg*hr/mL. Plan to draw next level on: _11/26/24_ @ _0500_ Thank you for allowing pharmacy to participate in the care of this patient. Please feel free to contact us with any questions or concerns. Angeles Dean RPH 11/25/2024 10:25 [facility] Department of Pharmacy - [facility] Phone: ADC: [phone] E NETWORK ENGINEER Angeles Dean [facility] 2024-11-25 07:36:29 Problem: Discharge Planning Goal: Adequate for discharge Outcome: Progressing as expected Goal: Effective communication Outcome: Progressing as expected Problem: Fluid Volume - Imbalanced Goal: Absence of signs and symptoms of imbalanced fluid volume Outcome: Progressing as expected Problem: Glucose Control - Initiated in Adult CC Goal: Glucose level within specified parameters Outcome: Progressing as expected Problem: Infection, Risk of or Actual Goal: Absence of infection Outcome: Progressing as expected Problem: Nutrition Deficit Goal: Adequate nutritional intake Outcome: Progressing as expected Problem: Pain Goal: Control of pain at or below patient's documented comfort goal Outcome: Progressing as expected Goal: Reduction in pain sensation Outcome: Progressing as expected Problem: Skin integrity Impaired (Risk or Actual) Goal: Wound healing Outcome: Progressing as expected Goal: Prevention of new skin breakdown Outcome: Progressing as expected Problem: Tissue Perfusion - Altered, Risk of Goal: Hemodynamically stable Outcome: Progressing as expected Problem: Falls, Risk of Goal: Absence of falls Outcome: Progressing as expected Problem: Venous Thromboembolism, (actual or risk of) Goal: Absence of venous thromboembolism (Risk) Outcome: Progressing as expected SE Lentz RN [facility] 2024-11-25 05:51:56 Problem: Discharge Planning Goal: Adequate for discharge Outcome: Progressing as expected Goal: Effective communication Outcome: Progressing as expected Problem: Fluid Volume - Imbalanced Goal: Absence of signs and symptoms of imbalanced fluid volume Outcome: Progressing as expected Problem: Glucose Control - Initiated in Adult CC Goal: Glucose level within specified parameters Outcome: Progressing as expected Problem: Infection, Risk of or Actual Goal: Absence of infection Outcome: Progressing as expected Problem: Nutrition Deficit Goal: Adequate nutritional intake Outcome: Progressing as expected Problem: Pain Goal: Control of pain at or below patient's documented comfort goal Outcome: Progressing as expected Goal: Reduction in pain sensation Outcome: Progressing as expected Problem: Skin integrity Impaired (Risk or Actual) Goal: Wound healing Outcome: Progressing as expected Goal: Prevention of new skin breakdown Outcome: Progressing as expected Problem: Tissue Perfusion - Altered, Risk of Goal: Hemodynamically stable Outcome: Progressing as expected Problem: Falls, Risk of Goal: Absence of falls Outcome: Progressing as expected Problem: Venous Thromboembolism, (actual or risk of) Goal: Absence of venous thromboembolism (Risk) Outcome: Progressing as expected E NETWORK ENGINEER Ariel Cheney RN [facility] 2024-11-24 11:15:26 Images from the original note were not included. General Vancomycin Note [facility] Clinical Pharmacist Consult Consulting Service: Vancomycin (Pharmacy to Dose) Pharmacy Vancomycin Therapeutic Monitoring Note Patient Name MREva Sex Unit Inocencia Wu [id number] 1955 female - Indication for vancomycin and goal Age Total Body Weight Skin and Soft Tissue Infection AUC/AC 400-600 mcg*hr/ mL 69 year old Wt Readings from Last 1 Encounters: 11/21/24 66 kg (145 lb 8 oz) Primary Physician: Dr. Maday HUNT Physician, if following: None Duration of Antibiotics: TBD (11/22/24 - present) Concurrent Antibiotics: Zosyn 3.375 gm IV Q8H (11/22/24 - present) Microbiology: Blood culture (11/21/24): no growth at 48 hours MRSA/MSSA PCR, Nares (11/21/24) - MRSA negative; MSSA positive Laboratory Data and Vancomycin Dosing CREATININE Date/Time Value Ref Range Status 11/21/2024 04:51 PM 1.19 (H) 0.50 - 1.04 mg/dL Final 10/29/2024 03:37 AM 0.46 (L) 0.50 - 1.04 mg/dL Final 10/27/2024 04:42 AM 0.60 0.50 - 1.04 mg/dL Final 06/05/2014 05:33 AM 0.52 0.50 - 1.04 MG/DL Final 06/04/2014 04:17 AM 0.50 0.50 - 1.04 MG/DL Final 06/01/2014 12:32 AM 0.55 0.50 - 1.04 MG/DL Final Creatinine, Serum-LC Date/Time Value Ref Range Status 01/22/2018 08:55 AM 0.63 0.57 - 1.00 mg/dL Final 10/28/2017 12:40 PM 0.58 0.44 - 1.19 mg/dL Final 09/04/2017 04:00 PM 0.58 0.57 - 1.00 mg/dL Final CREATININE-Q Date/Time Value Ref Range Status 11/02/2018 11:55 AM 0.61 0.50 - 0.99 mg/dL Final Comment: For patients >49 years of age, the reference limit for Creatinine is approximately 13% higher for people identified as -Chilean. Date CrCl (mL/min) Dosing Regimen and frequency @ Times (mg) Vancomycin Level @ Time (mcg/mL) 2/25/25 39 1250 mg IV Q24H given @ 0300 - 11/23/24 46.4 1250 mg IV Q24H given @ 0348 - 11/24/24 43.8 1250 mg IV Q24H given @ 0638 12.8 mcg/mL @ 0424 - - - - Assessment & Plan Random level checked today. Based on patient-specific levels and Bayesian monitoring, the current regimen is estimated to yield and AUC/AC of 533.34 mcg*hr/ml, which is therapeutic. Risk of accumulation due to concurrent therapy with piperacillin/tazobactam. Plan is to: Adjust regimen to: Vancomycin 1000 mg IV Q24H. Plan to draw next level on: _11/27/24_ @ _0500_ Thank you for allowing pharmacy to participate in the care of this patient. Please feel free to contact us with any questions or concerns. Angeles Dean RPH 11/23/2024 10:31 [facility] Department of Pharmacy - [facility] Phone: ADC: [phone] [facility] 2024-11-24 08:51:48 Problem: Discharge Planning Goal: Adequate for discharge Outcome: Progressing as expected Goal: Effective communication Outcome: Progressing as expected Problem: Fluid Volume - Imbalanced Goal: Absence of signs and symptoms of imbalanced fluid volume Outcome: Progressing as expected Problem: Glucose Control - Initiated in Adult CC Goal: Glucose level within specified parameters Outcome: Progressing as expected Problem: Infection, Risk of or Actual Goal: Absence of infection Outcome: Progressing as expected Problem: Nutrition Deficit Goal: Adequate nutritional intake Outcome: Progressing as expected Problem: Pain Goal: Control of pain at or below patient's documented comfort goal Outcome: Progressing as expected Goal: Reduction in pain sensation Outcome: Progressing as expected Problem: Skin integrity Impaired (Risk or Actual) Goal: Wound healing Outcome: Progressing as expected Goal: Prevention of new skin breakdown Outcome: Progressing as expected Problem: Tissue Perfusion - Altered, Risk of Goal: Hemodynamically stable Outcome: Progressing as expected Problem: Falls, Risk of Goal: Absence of falls Outcome: Progressing as expected Problem: Venous Thromboembolism, (actual or risk of) Goal: Absence of venous thromboembolism (Risk) Outcome: Progressing as expected [facility] 2024-11-23 23:15:33 Problem: Discharge Planning Goal: Adequate for discharge Outcome: Progressing as expected Goal: Effective communication Outcome: Progressing as expected Problem: Fluid Volume - Imbalanced Goal: Absence of signs and symptoms of imbalanced fluid volume Outcome: Progressing as expected Problem: Glucose Control - Initiated in Adult CC Goal: Glucose level within specified parameters Outcome: Progressing as expected Problem: Infection, Risk of or Actual Goal: Absence of infection Outcome: Progressing as expected Problem: Nutrition Deficit Goal: Adequate nutritional intake Outcome: Progressing as expected Problem: Pain Goal: Control of pain at or below patient's documented comfort goal Outcome: Progressing as expected Goal: Reduction in pain sensation Outcome: Progressing as expected Problem: Skin integrity Impaired (Risk or Actual) Goal: Wound healing Outcome: Progressing as expected Goal: Prevention of new skin breakdown Outcome: Progressing as expected Problem: Tissue Perfusion - Altered, Risk of Goal: Hemodynamically stable Outcome: Progressing as expected Problem: Falls, Risk of Goal: Absence of falls Outcome: Progressing as expected Problem: Venous Thromboembolism, (actual or risk of) Goal: Absence of venous thromboembolism (Risk) Outcome: Progressing as expected [facility] 2024-11-23 12:16:40 Problem: Discharge Planning Goal: Adequate for discharge Outcome: Progressing as expected Goal: Effective communication Outcome: Progressing as expected Problem: Fluid Volume - Imbalanced Goal: Absence of signs and symptoms of imbalanced fluid volume Outcome: Progressing as expected Problem: Glucose Control - Initiated in Adult CC Goal: Glucose level within specified parameters Outcome: Progressing as expected Problem: Infection, Risk of or Actual Goal: Absence of infection Outcome: Progressing as expected Problem: Nutrition Deficit Goal: Adequate nutritional intake Outcome: Progressing as expected Problem: Pain Goal: Control of pain at or below patient's documented comfort goal Outcome: Progressing as expected Goal: Reduction in pain sensation Outcome: Progressing as expected Problem: Skin integrity Impaired (Risk or Actual) Goal: Wound healing Outcome: Progressing as expected Goal: Prevention of new skin breakdown Outcome: Progressing as expected Problem: Tissue Perfusion - Altered, Risk of Goal: Hemodynamically stable Outcome: Progressing as expected Problem: Falls, Risk of Goal: Absence of falls Outcome: Progressing as expected Problem: Venous Thromboembolism, (actual or risk of) Goal: Absence of venous thromboembolism (Risk) Outcome: Progressing as expected [facility] 2024-11-23 10:31:35 Images from the original note were not included. General Vancomycin Note [facility] Clinical Pharmacist Consult Consulting Service: Vancomycin (Pharmacy to Dose) Pharmacy Vancomycin Therapeutic Monitoring Note Patient Name MREva Sex Unit Inocencia Wu [id number] 1955 female Indication for vancomycin and goal Age Total Body Weight Skin and Soft Tissue Infection AUC/AC 400-600 mcg*hr/ mL 69 year old Wt Readings from Last 1 Encounters: 11/21/24 66 kg (145 lb 8 oz) Primary Physician: Dr. Paz ID Physician, if following: None Duration of Antibiotics: TBD (11/22/24 - present) Concurrent Antibiotics: Zosyn 3.375 gm IV Q8H (11/22/24 - present) Microbiology: Blood culture (11/21/24): no growth at 24 hours MRSA/MSSA PCR, Nares (11/21/24) - MRSA negative; MSSA positive Laboratory Data and Vancomycin Dosing CREATININE Date/Time Value Ref Range Status 11/21/2024 04:51 PM 1.19 (H) 0.50 - 1.04 mg/dL Final 10/29/2024 03:37 AM 0.46 (L) 0.50 - 1.04 mg/dL Final 10/27/2024 04:42 AM 0.60 0.50 - 1.04 mg/dL Final 06/05/2014 05:33 AM 0.52 0.50 - 1.04 MG/DL Final 06/04/2014 04:17 AM 0.50 0.50 - 1.04 MG/DL Final 06/01/2014 12:32 AM 0.55 0.50 - 1.04 MG/DL Final Creatinine, Serum-LC Date/Time Value Ref Range Status 01/22/2018 08:55 AM 0.63 0.57 - 1.00 mg/dL Final 10/28/2017 12:40 PM 0.58 0.44 - 1.19 mg/dL Final 09/04/2017 04:00 PM 0.58 0.57 - 1.00 mg/dL Final CREATININE-Q Date/Time Value Ref Range Status 11/02/2018 11:55 AM 0.61 0.50 - 0.99 mg/dL Final Comment: For patients >49 years of age, the reference limit for Creatinine is approximately 13% higher for people identified as -Chilean. Date CrCl (mL/min) Dosing Regimen and frequency @ Times (mg) Vancomycin Level @ Time (mcg/mL) 11/22/24 39 1250 mg IV Q24H given @ 0300 - 11/23/24 46.4 1250 mg IV Q24H given @ 0348 - - - - - - Assessment & Plan Based on patient-specific levels and Bayesian monitoring, the current regimen is estimated to yield and AUC/AC of 420.3 mcg*hr/ml, which is therapeutic Plan is to: Continue current regimen of: Vancomycin 1250 mg IV Q24H. Plan to draw next level on: _11/24/24_ @ _0330_ Thank you for allowing pharmacy to participate in the care of this patient. Please feel free to contact us with any questions or concerns. Angeles Dean RPH 11/23/2024 10:31 [facility] Department of Pharmacy - [facility] Phone: ADC: [phone] [facility] 2024-11-23 09:34:04 Addendum created 11/23/24933 by Robby Franklin MD Intraprocedure Meds edited [facility] 2024-11-23 09:09:02 Patient: Inocencia Wu Procedure Summary Date: 11/23/24 Room / Location: [place] [address] / [place] LOCATION Anesthesia Start: 0753 Anesthesia Stop: 851 Procedure: TRANSMETATARSAL AMPUTATION (Right: Feet) Diagnosis: Peripheral arterial disease Toe infection Pain of toe of right foot (Peripheral arterial disease [I73.9]) (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]) (Pain of toe of right foot [M79.674]) Surgeons: Luis Jay MD Responsible Provider: Robby Franklin MD Anesthesia Type: General ASA Status: 3 Anesthesia Type: General Last vitals BP (!) 154/98 (11/23/24902) Temp 36.3 ?C (97.3 ?F) (11/23/24856) Pulse 85 (11/23/24902) Resp 14 (11/23/24902) SpO2 99 % (11/23/24902) There were no known notable events for this encounter. Anesthesia Post Evaluation Patient location during evaluation: bedside Patient participation: complete - patient participated Level of consciousness: awake and alert Pain score: 3 Pain management: satisfactory to patient Airway patency: patent Cardiovascular status: acceptable and blood pressure returned to baseline Respiratory status: acceptable Hydration status: acceptable Comments: Patient emotional and upset at bedside because daughter is not here. Otherwise VSS patient states pain is tolerable [facility] AN-ANESTHESIOLOGY ANESTHESIOLOGIST [facility] 2024-11-23 08:15:00 Operative Dictation Date of Service: 11/23/2024 Patient Name: Inocencia Wu : 1955 Preop Diagnosis: Right nonhealing toe amputation Right foot cellulitis Peripheral arterial disease Postop Diagnosis: Same Procedure: 1) right transmetatarsal amputation 2) right regional ankle block 1% lidocaine 30 cc Attending Surgeon: Dr. Luis Jay MD Assistants: Dr. Miah Roland MD Anesthesia: General, LMA Regional ankle block Fluids: -Minimal, per anesthesia documentation Blood Loss: 50 cc Specimens: Right forefoot Findings: -right forefoot with purulence around the D1/2 amputation site, tunneling to the D3 digit and proximally along the D1 digit. -Amputation level is without purulence or necrotic tissue -Wound packed open with Surgicel and Dakins gauze Indications: Inocencia Wu is a 69 year old female who presents with with peripheral arterial disease and right foot wounds who underwent tibial revascularization and D1/D2 toe amputation. She has had worsening of the wound over the last week with development of cellulitis & frankly purulent drainage from the wound bed. She was hospitalized for IV antibiotics and we proceed to the operating room today for right foot exploration and further debridement versus transmetatarsal amputation. We discussed the risk, benefits, and limitations of surgery. We discussed that without surgical intervention there will most likely be a progressive infection which may put her entire limb and life at risk. She is agreeable to proceeding with surgery. Procedure Description: The patient was brought to the operating theater and placed supine on the OR table. General anesthesia and LMA placement commenced and then the right lower extremity was prepped and draped in sterile fashion. A timeout was performed confirming correct patient, procedure, needed equipment, and site laterality. She was on routine antibiotics and chemical DVT prophylaxis. I began by performing a regional ankle block making a circumferential ring around the ankle using 1% lidocaine and then injecting down to the deeper nerves using a total of 30 cc to perform the block. I then irrigated the wound and evaluated its tissue. There was necrotic tissue present on the base of the wound tracking proximally along the D1-D2 digits and there was purulent drainage coming from the D3 digit. I elected to perform a transmetatarsal amputation making a circumferential incision around the metatarsal head using a 10 blade and then transecting the metatarsal heads using oscillating power saw. The forefoot was then handed off as a specimen to pathology. 2 arterial branches were ligated using 2-0 silk suture in a [id number] fashion. The metatarsals were then debrided back using rongeur's. Hemostasis was then obtained in the wound bed using electrocautery and the application of of Surgicel. The wound was then dressed with quarter percent Dakin soaked gauze, ABD pads, Kerlix, and Seven wrap. The patient was awoken, extubated and transferred to recovery in stable condition. Instrument and sponge counts were correct. I was present for and directed the entire procedure. Vascular Surgery Luis Jay MD 11/24/2024 [facility] 2024-11-23 08:15:00 BRIEF OPERATIVE NOTE Date of Surgery: 11/23/2024 Surgeons and Role: * Luis Jay MD - Primary * Rakesh Roland MD - Resident - Assisting Pre-Op Diagnosis: Peripheral arterial disease [I73.9] 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] Pain of toe of right foot [M79.674] Post-Op Diagnosis Codes: * Peripheral arterial disease [I73.9] * 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] * Pain of toe of right foot [M79.674] Procedures: 1) Right transmetatarsal amputation 2) Right ankle ankle block 30cc 1% lidocaine Estimated Blood Loss: 50cc Specimens Removed: ID Type Source Tests Collected by Time Destination 1 : forefoot Tissue FOOT, RIGHT SURGICAL PATHOLOGY EXAM Luis Jay MD 11/23/2024 0831 * No implants in log * Patient's Condition: Stable Findings: -right forefoot with purulence around the D1/2 amputation site, tunneling to the D3 digit and proximally along the D1 digit. -Amputation level is without purulence or necrotic tissue -Wound packed open with Surgicel and Dakins gauze Plan -Dressing change POD 1 afternoon v POD2. -Plan to transition to wound vac once wound is stable without bleeding -Non weight bearing to Right foot [id number] then heel weight bearing -Continue IV abx at this time. Vascular Surgery Luis Jay MD 11/23/24 [facility] 2024-11-23 07:23:27 Images from the original note were not included. Name/ MRN / Age / Gender: Inocencia Wu, [id number] 69 year old female BMI: Estimated body mass index is 23.76 kg/m? as calculated from the following: Height as of this encounter: 1.651 m (5' 5"). Weight as of this encounter: 64.8 kg (142 lb 12.8 oz). Allergies: Doxycycline and Sulfa (sulfonamide antibiotics) Last Vitals: BP Readings from Last 1 Encounters: 11/23/24 119/72 Pulse Readings from Last 1 Encounters: 11/23/24 62 SpO2 Readings from Last 1 Encounters: 11/23/24 97% Date of Surgery: 10/22/2024 Surgeon: Andrew Sena DO Procedure: TRANSMETATARSAL AMPUTATION (Right: Feet) OR Location: [facility] OR [facility] Anesthesia Preop Eval (physical exam) Copied forward and updated from: 10/21/24 Anesthesia Preop: Chart Review and [id number] [facility] Communication: 69-year-old female currently admitted for a nonhealing right foot ulcer s/p initial debridement 10/16/24 presenting now for tma NPO Status Verified Clear Liquids: > 2 Hours Solid Food/Non-Clear Liquids: > 8 Hours PONV Risk Factors: female and non-smoker PONV Risk Score: 2 Anesthesia History Anesthesia History Negative Previous Anesthetics/Airways Additional Comments: Tolerated LMA for initial washout. Required low phenylephrine ggt. Otherwise uneventful. Cardiovascular Comments: EK09/06/24 -SR with premature atrial beats -Left [place] deviation TTE: 01/26/18 -Interpretation Summary A complete two-dimensional transthoracic echocardiogram was performed (2D, M-mode, Doppler and color flow Doppler). -There is no comparison study available. -Normal LV size and thickness. -Preserved LV systolic function Normal RV size and function -EF: 60-65% (+) Patient reports cardiac eval within past [address] Reporter's name/number: Kishan (+) Hypertension and poorly controlled (+) Dyslipidemia (+) Hx of echocardiogram within past 5 years (+) Echocardiogram results (+) Recent EKG (SB) (+) PVD Pulmonary Negative Pulmonary ROS Comments: Former smoker PFT in 2018 WNL with slight decrease in function (-) Home O2 (-) Asthma Neuro/Musculoskeletal Negative Neuro/Musculosketal ROS Comments: Lower extremity duplex scan: 10/13/24 Interpretation Summary A complete two-dimensional transthoracic echocardiogram was performed (2D, M-mode, Doppler and color flow Doppler). There is no comparison study available. Normal LV size and thickness. Preserved LV systolic function Normal RV size and function (+) Rheumatoid arthritis (+) Chronic pain: Chronic Opioid Use: Yes GI/Hepatic (+) GERD Hematology Comments: Hx of bleeding disorder but not now Renal Comments: Urinary incontinence K on admission 1.9 replenished now 3.8 Skin Negative Skin ROS Endo/Other (+) Diabetes Mellitus (+) Hypothyroidism Other FINANCIAL SYSTEMS MANAGER Negative FINANCIAL SYSTEMS MANAGER ROS Pediatric Pediatric N/A N/A Preoperative Medication Instructions Continue taking all prescribed medications except: SEVEN inhibitors, ARBs, diuretics, all oral diabetes medications Anticoagulant Therapy: Defer to surgeons Insulin: Take 1/2 dose the night prior to surgery. Hold on DOS. Phentermine: Alert [facility] anesthesiologist SGLT2 Inhibitors: "gliflozins" to be held for 3 days prior to elective surgeries GLP1 Agonosit: stop 7 days prior to surgery MAC Cases: Continue taking SEVEN inhibitors and ARBs ASA Classification ASA: 3 Labs: Chemistry 11/23/2024 CBC 11/23/2024 143 113 (H) 8 92 8.42 10.1 (L) 168 3.8 25 1.00 30.7 (L) eGFR: 60.4 Date: 11/23/2024 ANC: 3.69 Date: 11/23/2024 LFTs 11/21/2024 Coags AST: 50 (H) AP: 107 Prot: 7.7 Ca: 8.5 (L) PT: 13.3 (H) Date: 10/14/2024 ALT: 15 T Darren: 0.5 Alb: 3.1 (L) PTT: 33 Date: 10/14/2024 PO4: 4.0 Date: 10/29/2024 INR: 1.1 Date: 10/14/2024 Cardiac Endocrine & other pBNP: - Date: - A1C: 5.1 Date: 10/13/2024 Trop I: 0.002 Date: 09/06/2024 POCT A1C: - Date: - CK: 28 (L) Date: 10/13/2024 TSH: 4.11 Date: 10/15/2024 CKMB: - Date: - FT4: - Date: - LDL: 80 Date: 10/15/2024 Lact: 1.06 Date: 11/21/2024 Procal: - Date: - Respiratory -|-|-|-|- D-dimer: - ABG Date: - Date: - Miscellaneous Type and Screen: A POSITIVE Antibody: Negative Date: 10/15/2024 POCT : - Date: - Current Medications: Outpatient Medications Marked as Taking for the 11/21/24 encounter (Hospital Encounter) Medication Sig Dispense Refill Oxycodone 10 mg Tab Take 1 tablet by mouth every 6 (six) hours as needed (pain). Patient reports taking TID aspirin 81 mg chewable tablet Take 1 tablet by mouth in the morning for 360 days. 30 tablet 11 clopidogreL 75 mg tablet Take 1 tablet by mouth in the morning for 90 days. 30 tablet 2 gabapentin 300 mg capsule Take 1 capsule by mouth in the morning and 1 capsule at noon and 1 capsule in the evening. Do all this for 60 days. 90 capsule 1 losartan 25 mg tablet Take 1 tablet by mouth in the morning for 60 days. 30 tablet 1 NIFEdipine ER 60 mg tablet Take 1 tablet by mouth in the morning for 60 days. 30 tablet 1 rosuvastatin 20 mg tablet Take 1 tablet by mouth in the morning for 360 days. 30 tablet 11 zinc sulfate 50 mg zinc (220 mg) capsule Take 1 capsule by mouth in the morning and 1 capsule at noon and 1 capsule in the evening. Do all this for 90 days. 90 capsule 2 omeprazole 40 mg capsule Take 1 capsule by mouth in the morning. levothyroxine 50 mcg tablet Take 1 tablet by mouth every morning. 90 tablet 1 Previous Surgeries: Past Surgical History: Procedure Laterality Date ANGIOGRAM VIA LOWER EXTREMITY ACCESS (SHX) Left 10/16/2024 Surgeon: Luis Jay MD; [facility] ANGIOGRAM VIA LOWER EXTREMITY ACCESS (SHX) Bilateral 10/14/2024 Surgeon: Nader Casanova MD; Location: [facility] OR LOCATION BUNIONECTOMY Right 12/23/2018 Surgeon: Aayush Carlson Jr., DPM; Location: [facility] OR [place] DEBRIDEMENT LOWER EXTREMITY (SHX) Right 10/22/2024 Surgeon: Andrew Sena DO; Location: [facility] DEBRIDEMENT OF FINGER WOUND (SHX) 06/01/2014 FINGER AMPUTATION Left 06/06/2014 Surgeon: Sherice Clemons MD; Location: [facility] FINGER AMPUTATION 2016 Left Hand / middle finger HAND DEBRIDEMENT Left 06/01/2014 Surgeon: Sherice Clemons MD; Location: [facility] SHEN BUNION (SHX) Right 12/23/2018 Surgeon: Aayush Carlson Jr., DPM; Location: [facility] Location TOE AMPUTATION Left 10/16/2024 Surgeon: Luis Jay MD; Location: [facility] TOE AMPUTATION Right 10/22/2024 Surgeon: Andrew Sena DO; Location: [facility] LOC[facility] TOTAL KNEE ARTHROPLASTY Left 02/15/2018 Surgeon: Parth Ibarra MD; Location: [facility] TOTAL KNEE ARTHROPLASTY Right 02/14/2019 Surgeon: Parth Ibarra MD; Location: [facility] Location Anesthesia Physical Exam General no apparent distress and alert and oriented x 3 Neuro/Psych neurological Nonfocal Dental poor dentition Abdominal GI exam normal (+) abdomen soft and benign Airway Mallampati score:III TM distance:> 5 cm Neck ROM: full Mouth opening:normal Extremity Normal extremity Pulmonary pulmonary exam normal and bilateral clear to auscultation Other Cardiovascular cardiovascular exam normalRhythm:Regular Rate: Normal Anesthesia Plan ASA Status: 3 Plan discussed during pre-op evaluation: General Anesthetic plan on DOS: General Plan to include: IV induction and LMA Anesthesia plan discussed with: patient or corporate representative Post-Operative Analgesia: routine analgesia & antiemetics Recovery Plan: PACU Additional comments: I reviewed the preoperative history,labs, medications, and pertinent studies and performed a physical exam perioperative. The anesthetic plan is general. I discussed this anesthetic plan with all of its components at length with the patient including the risks, benefits, and alternatives.I answered all of her questions and consent, ID, and NPO status were verified. This patient agrees with the plan and desires to proceed with surgery. [facility] 2024-11-22 23:28:02 Problem: Discharge Planning Goal: Adequate for discharge Outcome: Progressing as expected Goal: Effective communication Outcome: Progressing as expected Problem: Fluid Volume - Imbalanced Goal: Absence of signs and symptoms of imbalanced fluid volume Outcome: Progressing as expected Problem: Glucose Control - Initiated in Adult CC Goal: Glucose level within specified parameters Outcome: Progressing as expected Problem: Infection, Risk of or Actual Goal: Absence of infection Outcome: Progressing as expected Problem: Nutrition Deficit Goal: Adequate nutritional intake Outcome: Progressing as expected Problem: Pain Goal: Control of pain at or below patient's documented comfort goal Outcome: Progressing as expected Goal: Reduction in pain sensation Outcome: Progressing as expected Problem: Skin integrity Impaired (Risk or Actual) Goal: Wound healing Outcome: Progressing as expected Goal: Prevention of new skin breakdown Outcome: Progressing as expected Problem: Tissue Perfusion - Altered, Risk of Goal: Hemodynamically stable Outcome: Progressing as expected Problem: Falls, Risk of Goal: Absence of falls Outcome: Progressing as expected Problem: Venous Thromboembolism, (actual or risk of) Goal: Absence of venous thromboembolism (Risk) Outcome: Progressing as expected [facility] Anna Marie RN [facility] 2024-11-22 11:28:08 Problem: Discharge Planning Goal: Adequate for discharge Outcome: Progressing as expected Goal: Effective communication Outcome: Progressing as expected Problem: Fluid Volume - Imbalanced Goal: Absence of signs and symptoms of imbalanced fluid volume Outcome: Progressing as expected Problem: Glucose Control - Initiated in Adult CC Goal: Glucose level within specified parameters Outcome: Progressing as expected Problem: Infection, Risk of or Actual Goal: Absence of infection Outcome: Progressing as expected Problem: Nutrition Deficit Goal: Adequate nutritional intake Outcome: Progressing as expected Problem: Pain Goal: Control of pain at or below patient's documented comfort goal Outcome: Progressing as expected Goal: Reduction in pain sensation Outcome: Progressing as expected Problem: Skin integrity Impaired (Risk or Actual) Goal: Wound healing Outcome: Progressing as expected Goal: Prevention of new skin breakdown Outcome: Progressing as expected Problem: Tissue Perfusion - Altered, Risk of Goal: Hemodynamically stable Outcome: Progressing as expected Problem: Falls, Risk of Goal: Absence of falls Outcome: Progressing as expected Problem: Venous Thromboembolism, (actual or risk of) Goal: Absence of venous thromboembolism (Risk) Outcome: Progressing as expected [facility] 2024-11-22 10:31:31 Images from the original note were not included. Pharmacy Recommendations for Patient Admission: Consider the following medication changes to continue the patient's home regimen (if clinically appropriate): Add nifedipine ER 60 mg PO QAM The [employer] medication list has been updated and reflected in the chart below. Please use the [employer] Med List for ordering home doses during admission. Patient Adherence: Adherent to all medications. Source(s) used in interview: Patient, Outpatient Pharmacy, and Medical Records Interview limitations: None Medications Added Medications Removed Medications Modified Oxycodone 10 mg None None Allergies as of 11/21/2024 - Reviewed 11/21/2024 Allergen Reaction Noted Doxycycline Nausea and/or Vomiting 09/20/2024 Sulfa (sulfonamide antibiotics) Nausea and/or Vomiting 01/09/2017 Pharmacy Updated [employer] Med List Medication Sig Oxycodone 10 mg Tab Take 1 tablet by mouth every 6 (six) hours as needed (pain). Patient reports taking TID aspirin 81 mg chewable tablet Take 1 tablet by mouth in the morning for 360 days. clopidogreL 75 mg tablet Take 1 tablet by mouth in the morning for 90 days. gabapentin 300 mg capsule Take 1 capsule by mouth in the morning and 1 capsule at noon and 1 capsule in the evening. Do all this for 60 days. losartan 25 mg tablet Take 1 tablet by mouth in the morning for 60 days. NIFEdipine ER 60 mg tablet Take 1 tablet by mouth in the morning for 60 days. rosuvastatin 20 mg tablet Take 1 tablet by mouth in the morning for 360 days. zinc sulfate 50 mg zinc (220 mg) capsule Take 1 capsule by mouth in the morning and 1 capsule at noon and 1 capsule in the evening. Do all this for 90 days. omeprazole 40 mg capsule Take 1 capsule by mouth in the morning. levothyroxine 50 mcg tablet Take 1 tablet by mouth every morning. Outpatient Pharmacy Contact Information: [facility]/pharmacy #[id number] - [place], [place] - [address] [facility] [address] [place] [id number] [facility] [address] [place] [address] [address] [facility] [address] [place] [address] Thank you for the opportunity to participate in the care of this patient. Angeles Dean RPH 10:28 AM, 11/22/2024 [facility] Department of Pharmacy - [facility] Phone: ADC: [phone] [facility] 2024-11-22 04:07:00 Summary: Vancomycin Monitoring Images from the original note were not included. General Vancomycin Note [facility] Clinical Pharmacist Consult Consulting Service: Vancomycin (Pharmacy to Dose) Pharmacy Vancomycin Therapeutic Monitoring Note Patient Name VIRIDIANA BONDB Sex Unit Inocencia Wu [id number] 1955 female [id number] Indication for vancomycin and goal Age Total Body Weight Skin and Soft Tissue Infection AUC/AC 400-600 mcg*hr/ mL 69 year old Wt Readings from Last 1 Encounters: 11/21/24 66 kg (145 lb 8 oz) Primary Physician: Dr. Paz ID Physician, if following: None Duration of Antibiotics: TBD (11/22/24 - present) Concurrent Antibiotics: Zosyn 3.375 gm IV Q8H (11/22/24 - present) Microbiology: Blood culture (11/21/24): In process Laboratory Data and Vancomycin Dosing CREATININE Date/Time Value Ref Range Status 11/21/2024 04:51 PM 1.19 (H) 0.50 - 1.04 mg/dL Final 10/29/2024 03:37 AM 0.46 (L) 0.50 - 1.04 mg/dL Final 10/27/2024 04:42 AM 0.60 0.50 - 1.04 mg/dL Final 06/05/2014 05:33 AM 0.52 0.50 - 1.04 MG/DL Final 06/04/2014 04:17 AM 0.50 0.50 - 1.04 MG/DL Final 06/01/2014 12:32 AM 0.55 0.50 - 1.04 MG/DL Final Creatinine, Serum-LC Date/Time Value Ref Range Status 01/22/2018 08:55 AM 0.63 0.57 - 1.00 mg/dL Final 10/28/2017 12:40 PM 0.58 0.44 - 1.19 mg/dL Final 09/04/2017 04:00 PM 0.58 0.57 - 1.00 mg/dL Final CREATININE-Q Date/Time Value Ref Range Status 11/02/2018 11:55 AM 0.61 0.50 - 0.99 mg/dL Final Comment: For patients >49 years of age, the reference limit for Creatinine is approximately 13% higher for people identified as -Chilean. Date CrCl (mL/min) Dosing Regimen and frequency @ Times (mg) Vancomycin Level @ Time (mcg/mL) 11/22/24 39 1250 mg IV Q24H scheduled @ 0400. - - - - - - - Assessment & Plan Based on patient-specific levels and Bayesian monitoring, the current regimen is estimated to yield and AUC/AC of 467.3 mcg*hr/ml, which is therapeutic Plan is to: Start vancomycin scheduled at a dose of: Vancomycin 1250 mg IV Q24H. Plan to draw next level on: _11/24/24_ @ _0330_ Thank you for allowing pharmacy to participate in the care of this patient. Please feel free to contact us with any questions or concerns. Ke Fine RPH, PharmD [facility] Department of Pharmacy - [facility] Phone: ADC: [phone] [facility] Ke Fine [facility]2025-02-24 19:17:16 Problem: Discharge Planning Goal: Adequate for discharge Outcome: Progressing as expected Goal: Effective communication Outcome: Progressing as expected Problem: Fluid Volume - Imbalanced Goal: Absence of signs and symptoms of imbalanced fluid volume Outcome: Progressing as expected Problem: Glucose Control - Initiated in Adult CC Goal: Glucose level within specified parameters Outcome: Progressing as expected Problem: Infection, Risk of or Actual Goal: Absence of infection Outcome: Progressing as expected Problem: Skin integrity Impaired (Risk or Actual) Goal: Wound healing Outcome: Progressing as expected Goal: Prevention of new skin breakdown Outcome: Progressing as expected Problem: Pain Goal: Control of pain at or below patient's documented comfort goal Outcome: Not progressing as expected Goal: Reduction in pain sensation Outcome: Not progressing as expected Problem: Nutrition Deficit Goal: Adequate nutritional intake Outcome: Progressing as expected Problem: Tissue Perfusion - Altered, Risk of Goal: Hemodynamically stable Outcome: Progressing as expected Problem: Falls, Risk of Goal: Absence of falls Outcome: Progressing as expected [facility]2025-02-06 19:09:51 Problem: Falls, Risk of Goal: Absence of falls Outcome: Adequate for discharge Problem: Pain Goal: Control of pain at or below patient's documented comfort goal Outcome: Adequate for discharge Goal: Reduction in pain sensation Outcome: Adequate for discharge Problem: Discharge Planning Goal: Adequate for discharge Outcome: Adequate for discharge Goal: Effective communication Outcome: Adequate for discharge Problem: Skin integrity Impaired (Risk or Actual) Goal: Wound healing Outcome: Adequate for discharge Goal: Prevention of new skin breakdown Outcome: Adequate for discharge Problem: Venous Thromboembolism, (actual or risk of) Goal: Absence of venous thromboembolism (Risk) Outcome: Adequate for discharge Goal: Prevent further complications associated with VTE diagnosis (Actual) Outcome: Adequate for discharge Problem: Infection Risk Goal: Absence of infection Outcome: Adequate for discharge Problem: Pain Goal: Control of pain at or below patient's documented comfort goal Outcome: Adequate for discharge Goal: Reduction in pain sensation Outcome: Adequate for discharge Problem: Skin integrity Impaired (Risk or Actual) Goal: Wound healing Outcome: Adequate for discharge Goal: Prevention of new skin breakdown Outcome: Adequate for discharge Problem: Infection Risk Goal: Absence of infection Outcome: Adequate for discharge Problem: Discharge Planning Goal: Adequate for discharge Outcome: Adequate for discharge Goal: Effective communication Outcome: Adequate for discharge Problem: Bleeding, Risk of Goal: Absence of impaired coagulation signs and symptoms Outcome: Adequate for discharge Goal: Absence of active bleeding Outcome: Adequate for discharge Problem: Procedure Routine Goal: Absence of post-procedure complications Outcome: Adequate for discharge Goal: Knowledge of procedure Outcome: Adequate for discharge [id number] Problem: Falls, Risk of Goal: Absence of falls 11/03/202410 by Jacques Anderson RN Outcome: Progressing as expected 11/03/20249 by Jacques Anderson RN Outcome: Not progressing as expected Problem: Pain Goal: Control of pain at or below patient's documented comfort goal 11/03/202410 by Jacques Anderson RN Outcome: Progressing as expected 11/03/20249 by Jacques Anderson RN Outcome: Not progressing as expected Goal: Reduction in pain sensation 11/03/202410 by Jacques Anderson RN Outcome: Progressing as expected 11/03/20249 by Jacques Anderson RN Outcome: Not progressing as expected Problem: Discharge Planning Goal: Adequate for discharge 11/03/202410 by Jacques Anderson RN Outcome: Progressing as expected 11/03/20249 by Jacques Anderson RN Outcome: Not progressing as expected Goal: Effective communication 11/03/202410 by Jacques Anderson RN Outcome: Progressing as expected 11/03/20249 by Jacques Anderson RN Outcome: Not progressing as expected Problem: Skin integrity Impaired (Risk or Actual) Goal: Wound healing 11/03/202410 by Jacques Anderson RN Outcome: Progressing as expected 11/03/20249 by Jacques Anderson RN Outcome: Not progressing as expected Goal: Prevention of new skin breakdown 11/03/202410 by Jacques Anderson RN Outcome: Progressing as expected 11/03/20249 by Jacques Anderson RN Outcome: Not progressing as expected Problem: Venous Thromboembolism, (actual or risk of) Goal: Absence of venous thromboembolism (Risk) 11/03/202410 by Jacques Anderson RN Outcome: Progressing as expected 11/03/20249 by Jacques Anderson RN Outcome: Not progressing as expected Goal: Prevent further complications associated with VTE diagnosis (Actual) 11/03/202410 by Jacques Anderson RN Outcome: Progressing as expected 11/03/20249 by Jacques Anderson RN Outcome: Not progressing as expected Problem: Infection Risk Goal: Absence of infection 11/03/202410 by Jacques Anderson RN Outcome: Progressing as expected 11/03/20249 by Jacques Anderson RN Outcome: Not progressing as expected Problem: Pain Goal: Control of pain at or below patient's documented comfort goal 11/03/202410 by Jacques Anderson RN Outcome: Progressing as expected 11/03/20249 by Jacques Anderson RN Outcome: Not progressing as expected Goal: Reduction in pain sensation 11/03/202410 by Jacques Anderson RN Outcome: Progressing as expected 11/03/20249 by Jacques Anderson RN Outcome: Not progressing as expected Problem: Skin integrity Impaired (Risk or Actual) Goal: Wound healing 11/03/202410 by Jacques Anderson RN Outcome: Progressing as expected 11/03/20249 by Jacques Anderson RN Outcome: Not progressing as expected Goal: Prevention of new skin breakdown 11/03/202410 by Jacques Anderson RN Outcome: Progressing as expected 11/03/20249 by Jacques Anderson RN Outcome: Not progressing as expected Problem: Infection Risk Goal: Absence of infection 11/03/202410 by Jacques Anderson RN Outcome: Progressing as expected 11/03/20249 by Jacques Anderson RN Outcome: Not progressing as expected Problem: Discharge Planning Goal: Adequate for discharge 11/03/202410 by Jacques Anderson RN Outcome: Progressing as expected 11/03/20249 by Jacques Anderson RN Outcome: Not progressing as expected Goal: Effective communication 11/03/202410 by Jacques Anderson RN Outcome: Progressing as expected 11/03/20249 by Jacques Anderson RN Outcome: Not progressing as expected Problem: Bleeding, Risk of Goal: Absence of impaired coagulation signs and symptoms 11/03/202410 by Jacques Anderson RN Outcome: Progressing as expected 11/03/20249 by Jacques Anderson RN Outcome: Not progressing as expected Goal: Absence of active bleeding 11/03/202410 by Jacques Anderson RN Outcome: Progressing as expected 11/03/20249 by Jacques Anderson RN Outcome: Not progressing as expected Problem: Procedure Routine Goal: Absence of post-procedure complications 11/03/202410 by Jacques Anderson RN Outcome: Progressing as expected 11/03/20249 by Jacques Anderson RN Outcome: Not progressing as expected Goal: Knowledge of procedure 11/03/202410 by Jacques Anderson RN Outcome: Progressing as expected 11/03/20249 by Jacques Anderson RN Outcome: Not progressing as expected SE Anderson [facility] - [id number] 07:43:00 Problem: Falls, Risk of Goal: Absence of falls Outcome: Progressing as expected Problem: Pain Goal: Control of pain at or below patient's documented comfort goal Outcome: Progressing as expected Goal: Reduction in pain sensation Outcome: Progressing as expected Problem: Discharge Planning Goal: Adequate for discharge Outcome: Progressing as expected Goal: Effective communication Outcome: Progressing as expected Problem: Skin integrity Impaired (Risk or Actual) Goal: Wound healing Outcome: Progressing as expected Goal: Prevention of new skin breakdown Outcome: Progressing as expected Problem: Venous Thromboembolism, (actual or risk of) Goal: Absence of venous thromboembolism (Risk) Outcome: Progressing as expected Goal: Prevent further complications associated with VTE diagnosis (Actual) Outcome: Progressing as expected Problem: Infection Risk Goal: Absence of infection Outcome: Progressing as expected Problem: Pain Goal: Control of pain at or below patient's documented comfort goal Outcome: Progressing as expected Goal: Reduction in pain sensation Outcome: Progressing as expected Problem: Skin integrity Impaired (Risk or Actual) Goal: Wound healing Outcome: Progressing as expected Goal: Prevention of new skin breakdown Outcome: Progressing as expected Problem: Infection Risk Goal: Absence of infection Outcome: Progressing as expected Problem: Discharge Planning Goal: Adequate for discharge Outcome: Progressing as expected Goal: Effective communication Outcome: Progressing as expected Problem: Bleeding, Risk of Goal: Absence of impaired coagulation signs and symptoms Outcome: Progressing as expected Goal: Absence of active bleeding Outcome: Progressing as expected Problem: Procedure Routine Goal: Absence of post-procedure complications Outcome: Progressing as expected Goal: Knowledge of procedure Outcome: Progressing as expected SE Ruiz [facility] - [id number] 00:14:24 Problem: Falls, Risk of Goal: Absence of falls Outcome: Progressing as expected Problem: Pain Goal: Control of pain at or below patient's documented comfort goal Outcome: Progressing as expected Goal: Reduction in pain sensation Outcome: Progressing as expected Problem: Discharge Planning Goal: Adequate for discharge Outcome: Progressing as expected Goal: Effective communication Outcome: Progressing as expected Problem: Skin integrity Impaired (Risk or Actual) Goal: Wound healing Outcome: Progressing as expected Goal: Prevention of new skin breakdown Outcome: Progressing as expected Problem: Venous Thromboembolism, (actual or risk of) Goal: Absence of venous thromboembolism (Risk) Outcome: Progressing as expected Goal: Prevent further complications associated with VTE diagnosis (Actual) Outcome: Progressing as expected Problem: Infection Risk Goal: Absence of infection Outcome: Progressing as expected Problem: Pain Goal: Control of pain at or below patient's documented comfort goal Outcome: Progressing as expected Goal: Reduction in pain sensation Outcome: Progressing as expected Problem: Skin integrity Impaired (Risk or Actual) Goal: Wound healing Outcome: Progressing as expected Goal: Prevention of new skin breakdown Outcome: Progressing as expected Problem: Infection Risk Goal: Absence of infection Outcome: Progressing as expected Problem: Discharge Planning Goal: Adequate for discharge Outcome: Progressing as expected Goal: Effective communication Outcome: Progressing as expected Problem: Bleeding, Risk of Goal: Absence of impaired coagulation signs and symptoms Outcome: Progressing as expected Goal: Absence of active bleeding Outcome: Progressing as expected Problem: Procedure Routine Goal: Absence of post-procedure complications Outcome: Progressing as expected Goal: Knowledge of procedure Outcome: Progressing as expected [facility] [id number] 16:35:39 Problem: Falls, Risk of Goal: Absence of falls Outcome: Progressing as expected Problem: Pain Goal: Control of pain at or below patient's documented comfort goal Outcome: Progressing as expected Goal: Reduction in pain sensation Outcome: Progressing as expected Problem: Discharge Planning Goal: Adequate for discharge Outcome: Progressing as expected Goal: Effective communication Outcome: Progressing as expected Problem: Skin integrity Impaired (Risk or Actual) Goal: Wound healing Outcome: Progressing as expected Goal: Prevention of new skin breakdown Outcome: Progressing as expected Problem: Venous Thromboembolism, (actual or risk of) Goal: Absence of venous thromboembolism (Risk) Outcome: Progressing as expected Goal: Prevent further complications associated with VTE diagnosis (Actual) Outcome: Progressing as expected Problem: Infection Risk Goal: Absence of infection Outcome: Progressing as expected Problem: Pain Goal: Control of pain at or below patient's documented comfort goal Outcome: Progressing as expected Goal: Reduction in pain sensation Outcome: Progressing as expected Problem: Skin integrity Impaired (Risk or Actual) Goal: Wound healing Outcome: Progressing as expected Goal: Prevention of new skin breakdown Outcome: Progressing as expected Problem: Infection Risk Goal: Absence of infection Outcome: Progressing as expected Problem: Discharge Planning Goal: Adequate for discharge Outcome: Progressing as expected Goal: Effective communication Outcome: Progressing as expected Problem: Bleeding, Risk of Goal: Absence of impaired coagulation signs and symptoms Outcome: Progressing as expected Goal: Absence of active bleeding Outcome: Progressing as expected Problem: Procedure Routine Goal: Absence of post-procedure complications Outcome: Progressing as expected Goal: Knowledge of procedure Outcome: Progressing as expected [facility]2025-02-04 01:14:40 Problem: Falls, Risk of Goal: Absence of falls Outcome: Progressing as expected Problem: Pain Goal: Control of pain at or below patient's documented comfort goal Outcome: Progressing as expected Goal: Reduction in pain sensation Outcome: Progressing as expected Problem: Discharge Planning Goal: Adequate for discharge Outcome: Progressing as expected Goal: Effective communication Outcome: Progressing as expected Problem: Skin integrity Impaired (Risk or Actual) Goal: Wound healing Outcome: Progressing as expected Goal: Prevention of new skin breakdown Outcome: Progressing as expected Problem: Venous Thromboembolism, (actual or risk of) Goal: Absence of venous thromboembolism (Risk) Outcome: Progressing as expected Goal: Prevent further complications associated with VTE diagnosis (Actual) Outcome: Progressing as expected Problem: Infection Risk Goal: Absence of infection Outcome: Progressing as expected Problem: Pain Goal: Control of pain at or below patient's documented comfort goal Outcome: Progressing as expected Goal: Reduction in pain sensation Outcome: Progressing as expected Problem: Skin integrity Impaired (Risk or Actual) Goal: Wound healing Outcome: Progressing as expected Goal: Prevention of new skin breakdown Outcome: Progressing as expected Problem: Infection Risk Goal: Absence of infection Outcome: Progressing as expected Problem: Discharge Planning Goal: Adequate for discharge Outcome: Progressing as expected Goal: Effective communication Outcome: Progressing as expected Problem: Bleeding, Risk of Goal: Absence of impaired coagulation signs and symptoms Outcome: Progressing as expected Goal: Absence of active bleeding Outcome: Progressing as expected Problem: Procedure Routine Goal: Absence of post-procedure complications Outcome: Progressing as expected Goal: Knowledge of procedure Outcome: Progressing as expected [facility] [employer] [facility] [id number] 17:41:17 Images from the original note were not included. Pharmacy Recommendations for Patient Admission: Consider increasing Atorvastatin dose to high intensity dosing for discharge. Hx: PAD- Patient is currently on high intensity statin inpatient. The [employer] medication list has been updated and reflected in the chart below. Please use the [employer] Med List for ordering home doses during admission. Patient Adherence: Adherent to all medications. Source(s) used in interview: Patient Interview limitations: None Medications Added Medications Removed Medications Modified None Ibuprofen None Allergies as of 10/13/2024 - Reviewed 10/13/2024 Allergen Reaction Noted Doxycycline Nausea and/or Vomiting 09/20/2024 Sulfa (sulfonamide antibiotics) Nausea and/or Vomiting 01/09/2017 Pharmacy Updated [employer] Med List Medication Sig Note omeprazole 40 mg capsule Take 1 capsule by mouth in the morning. ATORVASTATIN 10 mg tablet TAKE 1 TABLET BY MOUTH EVERYDAY AT BEDTIME 10/31/2024: Not taking it HYDROcodone-acetaminophen 10-325 mg tablet Take 1 tablet by mouth every 4 (four) hours as needed for Pain (scale 4-6). 10/31/2024: Takes it two times a day levothyroxine 50 mcg tablet Take 1 tablet by mouth every morning. methotrexate 2.5 mg tablet TAKE 8 TABLETS BY MOUTH ONCE WEEKLY Outpatient Pharmacy Contact Information: [facility]/pharmacy #[id number] - [place], [place] - [address] [address] [address] [id number] [facility] - [facility] [address] [place] [address] Thank you for the opportunity to participate in the care of this patient. Alaina Kirkland RPH 5:39 PM, 10/31/2024 [facility] Department of Pharmacy - [facility] Phone: GAL: [phone] [address] [place] [facility] [id number] 17:40:04 Problem: Falls, Risk of Goal: Absence of falls Outcome: Progressing as expected Problem: Pain Goal: Control of pain at or below patient's documented comfort goal Outcome: Progressing as expected Goal: Reduction in pain sensation Outcome: Progressing as expected Problem: Pain Goal: Control of pain at or below patient's documented comfort goal Outcome: Progressing as expected Goal: Reduction in pain sensation Outcome: Progressing as expected Problem: Discharge Planning Goal: Adequate for discharge Outcome: Progressing as expected Goal: Effective communication Outcome: Progressing as expected Problem: Skin integrity Impaired (Risk or Actual) Goal: Wound healing Outcome: Progressing as expected Goal: Prevention of new skin breakdown Outcome: Progressing as expected Problem: Venous Thromboembolism, (actual or risk of) Goal: Absence of venous thromboembolism (Risk) Outcome: Progressing as expected Goal: Prevent further complications associated with VTE diagnosis (Actual) Outcome: Progressing as expected E NETWORK ENGINEER Rosanna Holder [facility] - [id number] 08:05:00 Problem: Falls, Risk of Goal: Absence of falls Outcome: Progressing as expected Problem: Pain Goal: Control of pain at or below patient's documented comfort goal Outcome: Progressing as expected Goal: Reduction in pain sensation Outcome: Progressing as expected Problem: Discharge Planning Goal: Adequate for discharge Outcome: Progressing as expected Goal: Effective communication Outcome: Progressing as expected Problem: Skin integrity Impaired (Risk or Actual) Goal: Wound healing Outcome: Progressing as expected Goal: Prevention of new skin breakdown Outcome: Progressing as expected Problem: Venous Thromboembolism, (actual or risk of) Goal: Absence of venous thromboembolism (Risk) Outcome: Progressing as expected Goal: Prevent further complications associated with VTE diagnosis (Actual) Outcome: Progressing as expected Problem: Infection Risk Goal: Absence of infection Outcome: Progressing as expected Problem: Pain Goal: Control of pain at or below patient's documented comfort goal Outcome: Progressing as expected Goal: Reduction in pain sensation Outcome: Progressing as expected Problem: Skin integrity Impaired (Risk or Actual) Goal: Wound healing Outcome: Progressing as expected Goal: Prevention of new skin breakdown Outcome: Progressing as expected Problem: Infection Risk Goal: Absence of infection Outcome: Progressing as expected Problem: Discharge Planning Goal: Adequate for discharge Outcome: Progressing as expected Goal: Effective communication Outcome: Progressing as expected Problem: Bleeding, Risk of Goal: Absence of impaired coagulation signs and symptoms Outcome: Progressing as expected Goal: Absence of active bleeding Outcome: Progressing as expected Problem: Procedure Routine Goal: Absence of post-procedure complications Outcome: Progressing as expected Goal: Knowledge of procedure Outcome: Progressing as expected [facility]2025-02-01 18:23:00 Images from the original note were not included. Summary of AM Nursing care Patient alert, orientation assessed once patient cooperated with RN. Advised patient of low grade temperature, encouraged IS. Patient agreed, maximum of 1750 reached, reinforced education regarding slow inhale, she verbalized understanding, but needs continued reinforcement. Plan of care discussed regarding the need to ambulate and sit up in chair, she verbalized understanding, but refused. Mid-shift, patient was lethargic, drowsy, awakened for few seconds to verbal stimuli and touch. Medications held accordingly. Blinds opened Afternoon, patient more alert, expresses willingness to comply with plan of care, attempts made to assist patient to chair and/or bathroom. Patient becomes agitated and uncooperative, continues to refuse, offered active listening, emotional support, and validation of feelings, patient continues to refuse. Previous RN with rapport with patient asked by primary RN to offer reassurance and encouragement, RN at bedside to discuss with patient, patient verbalized understanding and agrees to attempt again. Primary RN at bedside with support for patient and assistance attempted again, patient again became argumentative and irritable, patient refused RN to place bedside table at bedside and refused to allow RN to remove walker from bedside, lays back in bed and continues sobbing, CN made aware, other events occurred prior to shift change with previous RN as witness. Detailed report given to PM RN TESFAYE Hyatt-OANH, BSN, RN [facility] HARRIS Goodwin, [address] [place] [id number] 07:32:48 Problem: Falls, Risk of Goal: Absence of falls Outcome: Progressing as expected Problem: Pain Goal: Control of pain at or below patient's documented comfort goal Outcome: Progressing as expected Goal: Reduction in pain sensation Outcome: Progressing as expected Problem: Discharge Planning Goal: Adequate for discharge Outcome: Progressing as expected Goal: Effective communication Outcome: Progressing as expected Problem: Skin integrity Impaired (Risk or Actual) Goal: Wound healing Outcome: Progressing as expected Goal: Prevention of new skin breakdown Outcome: Progressing as expected Problem: Venous Thromboembolism, (actual or risk of) Goal: Absence of venous thromboembolism (Risk) Outcome: Progressing as expected Goal: Prevent further complications associated with VTE diagnosis (Actual) Outcome: Progressing as expected Problem: Infection Risk Goal: Absence of infection Outcome: Progressing as expected Problem: Pain Goal: Control of pain at or below patient's documented comfort goal Outcome: Progressing as expected Goal: Reduction in pain sensation Outcome: Progressing as expected Problem: Skin integrity Impaired (Risk or Actual) Goal: Wound healing Outcome: Progressing as expected Goal: Prevention of new skin breakdown Outcome: Progressing as expected Problem: Infection Risk Goal: Absence of infection Outcome: Progressing as expected Problem: Discharge Planning Goal: Adequate for discharge Outcome: Progressing as expected Goal: Effective communication Outcome: Progressing as expected Problem: Bleeding, Risk of Goal: Absence of impaired coagulation signs and symptoms Outcome: Progressing as expected Goal: Absence of active bleeding Outcome: Progressing as expected Problem: Procedure Routine Goal: Absence of post-procedure complications Outcome: Progressing as expected Goal: Knowledge of procedure Outcome: Progressing as expected [facility] - [id number] 17:25:37 Problem: Falls, Risk of Goal: Absence of falls Outcome: Progressing as expected Problem: Pain Goal: Control of pain at or below patient's documented comfort goal Outcome: Progressing as expected Goal: Reduction in pain sensation Outcome: Progressing as expected Problem: Discharge Planning Goal: Adequate for discharge Outcome: Progressing as expected Goal: Effective communication Outcome: Progressing as expected Problem: Skin integrity Impaired (Risk or Actual) Goal: Wound healing Outcome: Progressing as expected Goal: Prevention of new skin breakdown Outcome: Progressing as expected Problem: Venous Thromboembolism, (actual or risk of) Goal: Absence of venous thromboembolism (Risk) Outcome: Progressing as expected Goal: Prevent further complications associated with VTE diagnosis (Actual) Outcome: Progressing as expected Problem: Infection Risk Goal: Absence of infection Outcome: Progressing as expected Problem: Pain Goal: Control of pain at or below patient's documented comfort goal Outcome: Progressing as expected Goal: Reduction in pain sensation Outcome: Progressing as expected Problem: Skin integrity Impaired (Risk or Actual) Goal: Wound healing Outcome: Progressing as expected Goal: Prevention of new skin breakdown Outcome: Progressing as expected Problem: Infection Risk Goal: Absence of infection Outcome: Progressing as expected Problem: Discharge Planning Goal: Adequate for discharge Outcome: Progressing as expected Goal: Effective communication Outcome: Progressing as expected Problem: Bleeding, Risk of Goal: Absence of impaired coagulation signs and symptoms Outcome: Progressing as expected Goal: Absence of active bleeding Outcome: Progressing as expected Problem: Procedure Routine Goal: Absence of post-procedure complications Outcome: Progressing as expected Goal: Knowledge of procedure Outcome: Progressing as expected E NETWORK ENGINEER Gabi Santoro Mai RNUTMB - [id number] 00:48:56 Problem: Falls, Risk of Goal: Absence of falls Outcome: Progressing as expected Problem: Pain Goal: Control of pain at or below patient's documented comfort goal Outcome: Progressing as expected Goal: Reduction in pain sensation Outcome: Progressing as expected Problem: Pain Goal: Control of pain at or below patient's documented comfort goal Outcome: Progressing as expected Goal: Reduction in pain sensation Outcome: Progressing as expected Problem: Discharge Planning Goal: Adequate for discharge Outcome: Progressing as expected Goal: Effective communication Outcome: Progressing as expected Problem: Discharge Planning Goal: Adequate for discharge Outcome: Progressing as expected Goal: Effective communication Outcome: Progressing as expected Problem: Skin integrity Impaired (Risk or Actual) Goal: Wound healing Outcome: Progressing as expected Goal: Prevention of new skin breakdown Outcome: Progressing as expected Problem: Skin integrity Impaired (Risk or Actual) Goal: Wound healing Outcome: Progressing as expected Goal: Prevention of new skin breakdown Outcome: Progressing as expected Problem: Venous Thromboembolism, (actual or risk of) Goal: Absence of venous thromboembolism (Risk) Outcome: Progressing as expected Goal: Prevent further complications associated with VTE diagnosis (Actual) Outcome: Progressing as expected Problem: Infection Risk Goal: Absence of infection Outcome: Progressing as expected Problem: Infection Risk Goal: Absence of infection Outcome: Progressing as expected Problem: Bleeding, Risk of Goal: Absence of impaired coagulation signs and symptoms Outcome: Progressing as expected Goal: Absence of active bleeding Outcome: Progressing as expected Problem: Procedure Routine Goal: Absence of post-procedure complications Outcome: Progressing as expected Goal: Knowledge of procedure Outcome: Progressing as expected E NETWORK ENGINEER [facility]eredith [facility] [id number] 08:06:00 Problem: Falls, Risk of Goal: Absence of falls Outcome: Progressing as expected Problem: Pain Goal: Control of pain at or below patient's documented comfort goal Outcome: Progressing as expected Goal: Reduction in pain sensation Outcome: Progressing as expected Problem: Discharge Planning Goal: Adequate for discharge Outcome: Progressing as expected Goal: Effective communication Outcome: Progressing as expected Problem: Skin integrity Impaired (Risk or Actual) Goal: Wound healing Outcome: Progressing as expected Goal: Prevention of new skin breakdown Outcome: Progressing as expected Problem: Venous Thromboembolism, (actual or risk of) Goal: Absence of venous thromboembolism (Risk) Outcome: Progressing as expected Goal: Prevent further complications associated with VTE diagnosis (Actual) Outcome: Progressing as expected Problem: Infection Risk Goal: Absence of infection Outcome: Progressing as expected Problem: Pain Goal: Control of pain at or below patient's documented comfort goal Outcome: Progressing as expected Goal: Reduction in pain sensation Outcome: Progressing as expected Problem: Skin integrity Impaired (Risk or Actual) Goal: Wound healing Outcome: Progressing as expected Goal: Prevention of new skin breakdown Outcome: Progressing as expected Problem: Infection Risk Goal: Absence of infection Outcome: Progressing as expected Problem: Discharge Planning Goal: Adequate for discharge Outcome: Progressing as expected Goal: Effective communication Outcome: Progressing as expected Problem: Bleeding, Risk of Goal: Absence of impaired coagulation signs and symptoms Outcome: Progressing as expected Goal: Absence of active bleeding Outcome: Progressing as expected Problem: Procedure Routine Goal: Absence of post-procedure complications Outcome: Progressing as expected Goal: Knowledge of procedure Outcome: Progressing as expected E NETWORK ENGINEER Shady Ellis RNUT - [id number] 01:48:43 Problem: Falls, Risk of Goal: Absence of falls Outcome: Progressing as expected Problem: Pain Goal: Control of pain at or below patient's documented comfort goal Outcome: Not progressing as expected Goal: Reduction in pain sensation Outcome: Not progressing as expected Problem: Pain Goal: Control of pain at or below patient's documented comfort goal Outcome: Not progressing as expected Goal: Reduction in pain sensation Outcome: Not progressing as expected Problem: Discharge Planning Goal: Adequate for discharge Outcome: Progressing as expected Goal: Effective communication Outcome: Progressing as expected Problem: Discharge Planning Goal: Adequate for discharge Outcome: Progressing as expected Goal: Effective communication Outcome: Progressing as expected Problem: Skin integrity Impaired (Risk or Actual) Goal: Wound healing Outcome: Progressing as expected Goal: Prevention of new skin breakdown Outcome: Progressing as expected Problem: Skin integrity Impaired (Risk or Actual) Goal: Wound healing Outcome: Progressing as expected Goal: Prevention of new skin breakdown Outcome: Progressing as expected Problem: Venous Thromboembolism, (actual or risk of) Goal: Absence of venous thromboembolism (Risk) Outcome: Progressing as expected Goal: Prevent further complications associated with VTE diagnosis (Actual) Outcome: Progressing as expected Problem: Infection Risk Goal: Absence of infection Outcome: Progressing as expected Problem: Infection Risk Goal: Absence of infection Outcome: Progressing as expected Problem: Bleeding, Risk of Goal: Absence of impaired coagulation signs and symptoms Outcome: Progressing as expected Goal: Absence of active bleeding Outcome: Progressing as expected Problem: Procedure Routine Goal: Absence of post-procedure complications Outcome: Progressing as expected Goal: Knowledge of procedure Outcome: Progressing as expected [facility]2025-01-29 17:23:48 Problem: Falls, Risk of Goal: Absence of falls Outcome: Progressing as expected Problem: Pain Goal: Control of pain at or below patient's documented comfort goal Outcome: Not progressing as expected Goal: Reduction in pain sensation Outcome: Not progressing as expected Problem: Discharge Planning Goal: Adequate for discharge Outcome: Progressing as expected Goal: Effective communication Outcome: Progressing as expected Problem: Skin integrity Impaired (Risk or Actual) Goal: Wound healing Outcome: Progressing as expected Problem: Infection Risk Goal: Absence of infection Outcome: Progressing as expected [facility]2025-01-29 03:08:30 Problem: Falls, Risk of Goal: Absence of falls Outcome: Progressing as expected Problem: Pain Goal: Control of pain at or below patient's documented comfort goal Outcome: Progressing as expected Goal: Reduction in pain sensation Outcome: Progressing as expected Problem: Discharge Planning Goal: Adequate for discharge Outcome: Progressing as expected Goal: Effective communication Outcome: Progressing as expected Problem: Skin integrity Impaired (Risk or Actual) Goal: Wound healing Outcome: Progressing as expected Goal: Prevention of new skin breakdown Outcome: Progressing as expected Problem: Venous Thromboembolism, (actual or risk of) Goal: Absence of venous thromboembolism (Risk) Outcome: Progressing as expected Goal: Prevent further complications associated with VTE diagnosis (Actual) Outcome: Progressing as expected Problem: Infection Risk Goal: Absence of infection Outcome: Progressing as expected Problem: Pain Goal: Control of pain at or below patient's documented comfort goal Outcome: Progressing as expected Goal: Reduction in pain sensation Outcome: Progressing as expected Problem: Skin integrity Impaired (Risk or Actual) Goal: Wound healing Outcome: Progressing as expected Goal: Prevention of new skin breakdown Outcome: Progressing as expected Problem: Infection Risk Goal: Absence of infection Outcome: Progressing as expected Problem: Discharge Planning Goal: Adequate for discharge Outcome: Progressing as expected Goal: Effective communication Outcome: Progressing as expected Problem: Bleeding, Risk of Goal: Absence of impaired coagulation signs and symptoms Outcome: Progressing as expected Goal: Absence of active bleeding Outcome: Progressing as expected Problem: Procedure Routine Goal: Absence of post-procedure complications Outcome: Progressing as expected Goal: Knowledge of procedure Outcome: Progressing as expected [facility] - [id number] 16:20:39 Problem: Falls, Risk of Goal: Absence of falls Outcome: Progressing as expected Problem: Pain Goal: Control of pain at or below patient's documented comfort goal Outcome: Progressing as expected Goal: Reduction in pain sensation Outcome: Progressing as expected Problem: Discharge Planning Goal: Adequate for discharge Outcome: Progressing as expected Goal: Effective communication Outcome: Progressing as expected Problem: Skin integrity Impaired (Risk or Actual) Goal: Wound healing Outcome: Progressing as expected Goal: Prevention of new skin breakdown Outcome: Progressing as expected Problem: Venous Thromboembolism, (actual or risk of) Goal: Absence of venous thromboembolism (Risk) Outcome: Progressing as expected Goal: Prevent further complications associated with VTE diagnosis (Actual) Outcome: Progressing as expected Problem: Infection Risk Goal: Absence of infection Outcome: Progressing as expected Problem: Pain Goal: Control of pain at or below patient's documented comfort goal Outcome: Progressing as expected Goal: Reduction in pain sensation Outcome: Progressing as expected Problem: Skin integrity Impaired (Risk or Actual) Goal: Wound healing Outcome: Progressing as expected Goal: Prevention of new skin breakdown Outcome: Progressing as expected Problem: Infection Risk Goal: Absence of infection Outcome: Progressing as expected Problem: Discharge Planning Goal: Adequate for discharge Outcome: Progressing as expected Goal: Effective communication Outcome: Progressing as expected Problem: Bleeding, Risk of Goal: Absence of impaired coagulation signs and symptoms Outcome: Progressing as expected Goal: Absence of active bleeding Outcome: Progressing as expected Problem: Procedure Routine Goal: Absence of post-procedure complications Outcome: Progressing as expected Goal: Knowledge of procedure Outcome: Progressing as expected E NETWORK ENGINEER Mae Martin RNUT - [id number] 22:31:39 Problem: Falls, Risk of Goal: Absence of falls Outcome: Progressing as expected Problem: Pain Goal: Control of pain at or below patient's documented comfort goal Outcome: Progressing as expected Goal: Reduction in pain sensation Outcome: Progressing as expected Problem: Discharge Planning Goal: Adequate for discharge Outcome: Progressing as expected Goal: Effective communication Outcome: Progressing as expected Problem: Skin integrity Impaired (Risk or Actual) Goal: Wound healing Outcome: Progressing as expected Goal: Prevention of new skin breakdown Outcome: Progressing as expected Problem: Venous Thromboembolism, (actual or risk of) Goal: Absence of venous thromboembolism (Risk) Outcome: Progressing as expected Goal: Prevent further complications associated with VTE diagnosis (Actual) Outcome: Progressing as expected Problem: Infection Risk Goal: Absence of infection Outcome: Progressing as expected Problem: Pain Goal: Control of pain at or below patient's documented comfort goal Outcome: Progressing as expected Goal: Reduction in pain sensation Outcome: Progressing as expected Problem: Skin integrity Impaired (Risk or Actual) Goal: Wound healing Outcome: Progressing as expected Goal: Prevention of new skin breakdown Outcome: Progressing as expected Problem: Infection Risk Goal: Absence of infection Outcome: Progressing as expected Problem: Discharge Planning Goal: Adequate for discharge Outcome: Progressing as expected Goal: Effective communication Outcome: Progressing as expected Problem: Bleeding, Risk of Goal: Absence of impaired coagulation signs and symptoms Outcome: Progressing as expected Goal: Absence of active bleeding Outcome: Progressing as expected Problem: Procedure Routine Goal: Absence of post-procedure complications Outcome: Progressing as expected Goal: Knowledge of procedure Outcome: Progressing as expected [id number] 12:32:47 Problem: Falls, Risk of Goal: Absence of falls Outcome: Progressing as expected Problem: Pain Goal: Control of pain at or below patient's documented comfort goal Outcome: Progressing as expected Goal: Reduction in pain sensation Outcome: Progressing as expected Problem: Discharge Planning Goal: Adequate for discharge Outcome: Progressing as expected Goal: Effective communication Outcome: Progressing as expected Problem: Skin integrity Impaired (Risk or Actual) Goal: Wound healing Outcome: Progressing as expected Goal: Prevention of new skin breakdown Outcome: Progressing as expected Problem: Venous Thromboembolism, (actual or risk of) Goal: Absence of venous thromboembolism (Risk) Outcome: Progressing as expected Goal: Prevent further complications associated with VTE diagnosis (Actual) Outcome: Progressing as expected Problem: Infection Risk Goal: Absence of infection Outcome: Progressing as expected [facility]2025-01-26 14:36:19 Problem: Falls, Risk of Goal: Absence of falls Outcome: Progressing as expected Problem: Pain Goal: Control of pain at or below patient's documented comfort goal Outcome: Progressing as expected Problem: Discharge Planning Goal: Adequate for discharge Outcome: Progressing as expected Problem: Skin integrity Impaired (Risk or Actual) Goal: Wound healing Outcome: Progressing as expected Problem: Venous Thromboembolism, (actual or risk of) Goal: Absence of venous thromboembolism (Risk) Outcome: Progressing as expected Goal: Prevent further complications associated with VTE diagnosis (Actual) Outcome: Progressing as expected Problem: Infection Risk Goal: Absence of infection Outcome: Progressing as expected [facility]2025-01-26 01:09:14 Problem: Falls, Risk of Goal: Absence of falls Outcome: Progressing as expected Problem: Pain Goal: Control of pain at or below patient's documented comfort goal Outcome: Progressing as expected Goal: Reduction in pain sensation Outcome: Progressing as expected Problem: Discharge Planning Goal: Adequate for discharge Outcome: Progressing as expected Goal: Effective communication Outcome: Progressing as expected Problem: Skin integrity Impaired (Risk or Actual) Goal: Wound healing Outcome: Progressing as expected Goal: Prevention of new skin breakdown Outcome: Progressing as expected Problem: Venous Thromboembolism, (actual or risk of) Goal: Absence of venous thromboembolism (Risk) Outcome: Progressing as expected Goal: Prevent further complications associated with VTE diagnosis (Actual) Outcome: Progressing as expected Problem: Infection Risk Goal: Absence of infection Outcome: Progressing as expected [facility] Floridalma Maria [id number] 18:55:00 Assisted patient up to bathroom as patient had not urinated since before surgery, up to restroom, assisted back to bed when noticed right tip of foot dressing with sang drainage noted. Vascular surgery notified and will be up to see patient and address dressing. SE [facility] [id number] 17:35:59 Problem: Falls, Risk of Goal: Absence of falls Outcome: Progressing as expected Problem: Pain Goal: Control of pain at or below patient's documented comfort goal Outcome: Progressing as expected Goal: Reduction in pain sensation Outcome: Progressing as expected Problem: Discharge Planning Goal: Adequate for discharge Outcome: Progressing as expected Goal: Effective communication Outcome: Progressing as expected Problem: Skin integrity Impaired (Risk or Actual) Goal: Wound healing Outcome: Progressing as expected Goal: Prevention of new skin breakdown Outcome: Progressing as expected Problem: Venous Thromboembolism, (actual or risk of) Goal: Absence of venous thromboembolism (Risk) Outcome: Progressing as expected Goal: Prevent further complications associated with VTE diagnosis (Actual) Outcome: Progressing as expected [facility]2025-01-25 11:53:03 FULL OPERATIVE NOTE Date of Surgery: 10/22/2024 Faculty physician: DO Sena Channa Resident physician: MD Thakkar Alexis Anesthesia Type: general - LMA Pre-operative diagnosis: Critical limb ischemia, right lower extremity Post-operative diagnosis: same Procedures: Right great toe amputation (Ray amputation) Right foot debridement Narrative: Patient arrived to the operating room and was placed in the supine position. After induction of general anesthesia, the patient's right leg and foot were prepped and draped in the usual sterile fashion. A formal timeout was performed. Using the scalpel, the foot wound at the base of the second toe amputation was debrided down to healthy bleeding tissue. The rongeur was used to debride the 2nd metatarsal bone down to healthy bleeding bone. There was an abscess at the base of the great toe that was lanced with the scalpel, and purulent drainage came from the space. This was sent for culture. The toe was further debrided down to bone. There was nonviable, non bleeding tissue. Using the scalpel, an incision was made circumferentially around the base of the great toe and incision was taken down to bone with the electrocautery. There was no bleeding tissue with this. The great toe ray was amputated off with bone cutters and sent to pathology. Using the scalpel, the skin was excised around the wound base until there was bleeding tissue. The bone was taken back with rongeur down to healthy hard bone which was down to the 1st metatarsal head which was also debrided with the rongeur. This revealed healthier looking bone. Curved corcoran scissors were used to excise exposed tendon. The wound was irrigated and there was healthy viable tissue with some bleeding. The wound was then dressed steriley with a dakin's wet to dry dressing. The patient tolerated the procedure well, was extubated and taken to PACU in stable condition. Excisional Debridement Billing Information Type of debridement: excisional Size (Length times width= Square Centimeters Size) Wound #1 Before debrided: 1cm long x 1cm width x 0.5cm depth After debrided: 2cm long x 1 cm width x 1cm depth (after amputation of the great toe the whole wound dimensions are 4cm wide x 2cm long by 0.5cm depth) Appearance of wound (e.g. down to fresh bleeding tissue, down to and including bone) Wound #1: Before debridement: Devitalized soft tissue and soft bone After debridement: Healthy bleeding tissue and hard bone Removal of devitalized tissue description (necrotic, nonviable, etc.): nonviable tissue and infected bone from wound 1 Cutting instrument used (scalpel, forceps, scissors, etc.): scalpel, corcoran scissors, rongeur Depth of debridement: Bone Complications: none apparent Estimated blood loss: 5cc Specimens: Right great toe abscess sent to micro. Right great toe sent to pathology Drains: none Specific postop instructions: - Follow up intra-op cultures - Daily dressing change, patient will likely need serial debridement Jesus Thakkar MD PGY-5, Vascular Surgery E NETWORK ENGINEER Associated attestation - Andrew Sena DO - 10/27/2024 11:23 AM VOICE NETWORK ENGINEER I agree with Dr. Thakkar's note as written. I was present for and immediately available for the entire procedure. Andrew Sena DO, [id number] 11:53:03 BRIEF OPERATIVE NOTE Date of Surgery: 10/22/2024 Surgeons and Role: * Andrew Sena DO - Primary * Jesus Thakkar MD - Resident - Assisting Pre-Op Diagnosis: Peripheral arterial disease [I73.9] Post-Op Diagnosis Codes: * Peripheral arterial disease [I73.9] Procedures: Procedure(s) (LRB): DEBRIDEMENT LOWER EXTREMITY (Right) TOE AMPUTATION (Right) CPT: CODINGHELP, Any Complications Encounters: None apparent Estimated Blood Loss: <5 cc Specimens Removed: ID Type Source Tests Collected by Time Destination 1 : right 1st toe Tissue SOFT TISSUE, OTHER SURGICAL PATHOLOGY EXAM Andrew Sena DO 10/22/2024 1209 A : right 1st toe wound Tissue SOFT TISSUE, OTHER AFB CULTURE, TISSUE CULTURE(AEROBIC/ANAEROBIC), FUNGUS (ROUTINE) CULTURE Andrew SenaDO 10/22/2024 1205 * No implants in log * Patient's Condition: Stable Findings: - Right 2nd toe amputation site with non viable superficial tissue and necrotic skin edges debrided back - Right first toe with deep space abscess on the plantar surface, minimal bleeding noted, therefore decision made to proceed with amputation Any other important information: - Return to floor - Follow up abscess cultures, continue Unasyn - Daily dressing changes to be performed by vascular surgery team only Please see dictated operative report for additional detail. Osmin Pina MD Vascular Surgery Resident [facility]2025-01-24 16:04:21 Problem: Falls, Risk of Goal: Absence of falls Outcome: Progressing as expected Problem: Pain Goal: Control of pain at or below patient's documented comfort goal Outcome: Progressing as expected Goal: Reduction in pain sensation Outcome: Progressing as expected Problem: Discharge Planning Goal: Adequate for discharge Outcome: Progressing as expected Goal: Effective communication Outcome: Progressing as expected Problem: Skin integrity Impaired (Risk or Actual) Goal: Wound healing Outcome: Progressing as expected Goal: Prevention of new skin breakdown Outcome: Progressing as expected Problem: Venous Thromboembolism, (actual or risk of) Goal: Absence of venous thromboembolism (Risk) Outcome: Progressing as expected [facility]2025-01-23 18:09:18 Problem: Falls, Risk of Goal: Absence of falls Outcome: Progressing as expected Problem: Pain Goal: Control of pain at or below patient's documented comfort goal Outcome: Progressing as expected Goal: Reduction in pain sensation Outcome: Progressing as expected Problem: Discharge Planning Goal: Adequate for discharge Outcome: Progressing as expected Goal: Effective communication Outcome: Progressing as expected Problem: Skin integrity Impaired (Risk or Actual) Goal: Wound healing Outcome: Progressing as expected Goal: Prevention of new skin breakdown Outcome: Progressing as expected Problem: Venous Thromboembolism, (actual or risk of) Goal: Absence of venous thromboembolism (Risk) Outcome: Progressing as expected [facility]2025-01-23 00:27:04 Problem: Falls, Risk of Goal: Absence of falls Outcome: Progressing as expected Problem: Pain Goal: Control of pain at or below patient's documented comfort goal Outcome: Progressing as expected Goal: Reduction in pain sensation Outcome: Progressing as expected Problem: Discharge Planning Goal: Adequate for discharge Outcome: Progressing as expected Goal: Effective communication Outcome: Progressing as expected Problem: Skin integrity Impaired (Risk or Actual) Goal: Wound healing Outcome: Progressing as expected Goal: Prevention of new skin breakdown Outcome: Progressing as expected Problem: Venous Thromboembolism, (actual or risk of) Goal: Absence of venous thromboembolism (Risk) Outcome: Progressing as expected Goal: Prevent further complications associated with VTE diagnosis (Actual) Outcome: Progressing as expected Problem: Infection Risk Goal: Absence of infection Outcome: Progressing as expected [id number]25:[facility] Problem: Falls, Risk of Goal: Absence of falls Outcome: Progressing as expected Problem: Pain Goal: Control of pain at or below patient's documented comfort goal Outcome: Progressing as expected Goal: Reduction in pain sensation Outcome: Progressing as expected Problem: Discharge Planning Goal: Adequate for discharge Outcome: Progressing as expected Goal: Effective communication Outcome: Progressing as expected Problem: Skin integrity Impaired (Risk or Actual) Goal: Wound healing Outcome: Progressing as expected Goal: Prevention of new skin breakdown Outcome: Progressing as expected Problem: Venous Thromboembolism, (actual or risk of) Goal: Absence of venous thromboembolism (Risk) Outcome: Progressing as expected Goal: Prevent further complications associated with VTE diagnosis (Actual) Outcome: Progressing as expected Problem: Infection Risk Goal: Absence of infection Outcome: Progressing as expected [id number] 08:02:29 Images from the original note were not included. General Vancomycin Note [facility] Clinical Pharmacist Consult Consulting Service: Vancomycin (Pharmacy to Dose) Pharmacy Vancomycin Therapeutic Monitoring Note Patient Name VIRIDIANA Sex Unit Inocencia Wu [id number] 1955 female [id number] Indication for vancomycin and goal Age Total Body Weight Skin and Soft Tissue Infection AUC/AC 400-600 mcg*hr/ mL 69 year old Wt Readings from Last 1 Encounters: 10/19/24 69.9 kg (154 lb) Primary Physician: Dr. James ID Physician, if following: N/A Duration of Antibiotics: TBD (10/13/24 - present) Concurrent Antibiotics: Cefepime 1gm IV Q8H (10/13/24 - present) Microbiology: None collected Laboratory Data and Vancomycin Dosing CREATININE Date/Time Value Ref Range Status 10/19/2024 05:16 AM 0.42 (L) 0.50 - 1.04 mg/dL Final 10/18/2024 01:20 AM 0.50 0.50 - 1.04 mg/dL Final 10/17/2024 04:16 AM 0.52 0.50 - 1.04 mg/dL Final 06/05/2014 05:33 AM 0.52 0.50 - 1.04 MG/DL Final 06/04/2014 04:17 AM 0.50 0.50 - 1.04 MG/DL Final 06/01/2014 12:32 AM 0.55 0.50 - 1.04 MG/DL Final Creatinine, Serum-LC Date/Time Value Ref Range Status 01/22/2018 08:55 AM 0.63 0.57 - 1.00 mg/dL Final 10/28/2017 12:40 PM 0.58 0.44 - 1.19 mg/dL Final 09/04/2017 04:00 PM 0.58 0.57 - 1.00 mg/dL Final CREATININE-Q Date/Time Value Ref Range Status 11/02/2018 11:55 AM 0.61 0.50 - 0.99 mg/dL Final Comment: For patients >49 years of age, the reference limit for Creatinine is approximately 13% higher for people identified as -Chilean. Date CrCl (mL/min) Dosing Regimen and frequency @ Times (mg) Vancomycin Level @ Time (mcg/mL) 10/13/24 91 1000 mg @1429 - 10/14/24 - 1000 mg Q12H @2118 - 10/15/24 110 1000 mg Q12H @0905, 2116 - 10/16/24 105 1000 mg Q12H @1217, 2245 17.0 @0346 10/17/24 93 1000 mg Q12H @1422 - 10/18/24 96 1000 mg Q12H @ 0523, 1733 - 10/19/24 115 1000 mg Q12H @ 0519, 14.4 @ 0516 Assessment & Plan Based on patient-specific levels and Bayesian monitoring, the current regimen is estimated to yield an AUC/AC of 488.7 mcg*hr/ml, which is therapeutic Plan is to: Continue Vancomycin 1000 mg IV Q12H If therapy is continued, next level in 2-3 days. Will follow up with primary team on duration of therapy. Thank you for allowing pharmacy to participate in the care of this patient. Please feel free to contact us with any questions or concerns. Valentina Vieira PharmD [phone] [facility] Department of Pharmacy [facility] Phone: GAL: [phone] SE Vieira [facility] [id number] 02:08:34 Problem: Falls, Risk of Goal: Absence of falls Outcome: Progressing as expected Problem: Pain Goal: Control of pain at or below patient's documented comfort goal Outcome: Progressing as expected Goal: Reduction in pain sensation Outcome: Progressing as expected Problem: Discharge Planning Goal: Adequate for discharge Outcome: Progressing as expected Goal: Effective communication Outcome: Progressing as expected Problem: Skin integrity Impaired (Risk or Actual) Goal: Wound healing Outcome: Progressing as expected Goal: Prevention of new skin breakdown Outcome: Progressing as expected Problem: Venous Thromboembolism, (actual or risk of) Goal: Absence of venous thromboembolism (Risk) Outcome: Progressing as expected Goal: Prevent further complications associated with VTE diagnosis (Actual) Outcome: Progressing as expected Problem: Infection Risk Goal: Absence of infection Outcome: Progressing as expected [facility] [id number] 17:00:24 Problem: Falls, Risk of Goal: Absence of falls Outcome: Progressing as expected Problem: Pain Goal: Control of pain at or below patient's documented comfort goal Outcome: Progressing as expected Goal: Reduction in pain sensation Outcome: Progressing as expected Problem: Discharge Planning Goal: Adequate for discharge Outcome: Progressing as expected Goal: Effective communication Outcome: Progressing as expected Problem: Skin integrity Impaired (Risk or Actual) Goal: Wound healing Outcome: Progressing as expected Goal: Prevention of new skin breakdown Outcome: Progressing as expected Problem: Venous Thromboembolism, (actual or risk of) Goal: Absence of venous thromboembolism (Risk) Outcome: Progressing as expected Goal: Prevent further complications associated with VTE diagnosis (Actual) Outcome: Progressing as expected Problem: Infection Risk Goal: Absence of infection Outcome: Progressing as expected [facility]2025-01-21 14:08:29 Images from the original note were not included. General Vancomycin Note [facility] Clinical Pharmacist Consult Consulting Service: Vancomycin (Pharmacy to Dose) Pharmacy Vancomycin Therapeutic Monitoring Note Patient Name MRN Sex Unit Inocencia Wu [id number] 1955 female [id number] Indication for vancomycin and goal Age Total Body Weight Skin and Soft Tissue Infection AUC/AC 400-600 mcg*hr/ mL 69 year old Wt Readings from Last 1 Encounters: 10/18/24 70 kg (154 lb 4.8 oz) Primary Physician: Dr. James ID Physician, if following: N/A Duration of Antibiotics: TBD (10/13/24 - present) Concurrent Antibiotics: Cefepime 1gm IV Q8H (10/13/24 - present) Microbiology: None collected Laboratory Data and Vancomycin Dosing CREATININE Date/Time Value Ref Range Status 10/18/2024 01:20 AM 0.50 0.50 - 1.04 mg/dL Final 10/17/2024 04:16 AM 0.52 0.50 - 1.04 mg/dL Final 10/16/2024 03:46 AM 0.46 (L) 0.50 - 1.04 mg/dL Final 06/05/2014 05:33 AM 0.52 0.50 - 1.04 MG/DL Final 06/04/2014 04:17 AM 0.50 0.50 - 1.04 MG/DL Final 06/01/2014 12:32 AM 0.55 0.50 - 1.04 MG/DL Final Creatinine, Serum-LC Date/Time Value Ref Range Status 01/22/2018 08:55 AM 0.63 0.57 - 1.00 mg/dL Final 10/28/2017 12:40 PM 0.58 0.44 - 1.19 mg/dL Final 09/04/2017 04:00 PM 0.58 0.57 - 1.00 mg/dL Final CREATININE-Q Date/Time Value Ref Range Status 11/02/2018 11:55 AM 0.61 0.50 - 0.99 mg/dL Final Comment: For patients >49 years of age, the reference limit for Creatinine is approximately 13% higher for people identified as -Chilean. Date CrCl (mL/min) Dosing Regimen and frequency @ Times (mg) Vancomycin Level @ Time (mcg/mL) 10/13/24 91 1000 mg @1429 - 10/14/24 - 1000 mg Q12H @2118 - 10/15/24 110 1000 mg Q12H @0905, 211 - 10/16/24 105 1000 mg Q12H @1217, 2245 17.0 @0346 10/17/24 93 1000 mg Q12H @1422 - 10/18/24 96 1000 mg Q12H @ 0523, - - Assessment & Plan Based on patient-specific levels and Bayesian monitoring, the current regimen is estimated to yield and AUC/AC of 468.9 mcg*hr/ml, which is therapeutic Plan is to: Continue Vancomycin 1000 mg IV Q12H Level tomorrow to reassess clearance. Will follow up with primary team on duration of therapy. Thank you for allowing pharmacy to participate in the care of this patient. Please feel free to contact us with any questions or concerns. Valentina Vieira, PharmD [phone] [facility] Department of Pharmacy [facility] Phone: GAL: [phone] [facility] Pkyzer1754-05-96 01:48:47 Problem: Falls, Risk of Goal: Absence of falls 10/18/2024147 by Zari Guadarrama RN Outcome: Progressing as expected 10/17/20242349 by Zari Guadarrama RN Outcome: Progressing as expected Problem: Pain Goal: Control of pain at or below patient's documented comfort goal 10/18/2024147 by Zari Guadarrama RN Outcome: Progressing as expected 10/17/20242349 by Zari Guadarrama RN Outcome: Progressing as expected Goal: Reduction in pain sensation 10/18/2024147 by Zari Guadarrama RN Outcome: Progressing as expected 10/17/20242349 by Zari Guadarrama RN Outcome: Progressing as expected Problem: Discharge Planning Goal: Adequate for discharge 10/18/2024147 by Zari Guadarrama RN Outcome: Progressing as expected 10/17/20242349 by Zari Guadarrama RN Outcome: Progressing as expected Goal: Effective communication 10/18/2024147 by Zari Guadarrama RN Outcome: Progressing as expected 10/17/20242349 by Zari Guadarrama RN Outcome: Progressing as expected Problem: Skin integrity Impaired (Risk or Actual) Goal: Wound healing 10/18/2024147 by Zari Guadarrama RN Outcome: Progressing as expected 10/17/20242349 by Zari Guadarrama RN Outcome: Progressing as expected Goal: Prevention of new skin breakdown 10/18/2024147 by Zari Guadarrama RN Outcome: Progressing as expected 10/17/20242349 by Zari Guadarrama RN Outcome: Progressing as expected Problem: Venous Thromboembolism, (actual or risk of) Goal: Absence of venous thromboembolism (Risk) 10/18/2024147 by Zari Guadarrama RN Outcome: Progressing as expected 10/17/20242349 by Zari Guadarrama RN Outcome: Progressing as expected Goal: Prevent further complications associated with VTE diagnosis (Actual) 10/18/2024147 by Zari Guadarrama RN Outcome: Progressing as expected 10/17/2024 2350 by Zari Guadarrama RN Outcome: Progressing as expected Problem: Infection Risk Goal: Absence of infection 10/18/2024 0148 by Zari Guadarrama RN Outcome: Progressing as expected 10/17/2024 2350 by Zari Guadarrama RN Outcome: Progressing as expected [place] [id number] 23:50:10 Problem: Falls, Risk of Goal: Absence of falls Outcome: Progressing as expected Problem: Pain Goal: Control of pain at or below patient's documented comfort goal Outcome: Progressing as expected Goal: Reduction in pain sensation Outcome: Progressing as expected Problem: Discharge Planning Goal: Adequate for discharge Outcome: Progressing as expected Goal: Effective communication Outcome: Progressing as expected Problem: Skin integrity Impaired (Risk or Actual) Goal: Wound healing Outcome: Progressing as expected Goal: Prevention of new skin breakdown Outcome: Progressing as expected Problem: Venous Thromboembolism, (actual or risk of) Goal: Absence of venous thromboembolism (Risk) Outcome: Progressing as expected Goal: Prevent further complications associated with VTE diagnosis (Actual) Outcome: Progressing as expected Problem: Infection Risk Goal: Absence of infection Outcome: Progressing as expected [place] [id number] 14:43:29 General Vancomycin Note [facility] Clinical Pharmacist Consult Consulting Service: Vancomycin (Pharmacy to Dose) Pharmacy Vancomycin Therapeutic Monitoring Note Patient Name MRN Sex Unit Inocencia Wu [id number] 1955 female LIU [id number] Indication for vancomycin and goal Age Total Body Weight Skin and Soft Tissue Infection (Right toe) AUC/AC 400-600 mcg*hr/ mL 69 year old Wt Readings from Last 1 Encounters: 10/16/24 69.5 kg (153 lb 3.2 oz) Primary Physician: Dr. Casanova ID Physician, if following: N/A Duration of Antibiotics: TBD Concurrent Antibiotics: Cefepime 1g IV Q8H Microbiology: 10/16/24 Tissue culture (bone): no growth at 24hr Laboratory Data and Vancomycin Dosing CREATININE Date/Time Value Ref Range Status 10/17/2024 04:16 AM 0.52 0.50 - 1.04 mg/dL Final 10/16/2024 03:46 AM 0.46 (L) 0.50 - 1.04 mg/dL Final 10/15/2024 12:23 AM 0.44 (L) 0.50 - 1.04 mg/dL Final 06/05/2014 05:33 AM 0.52 0.50 - 1.04 MG/DL Final 06/04/2014 04:17 AM 0.50 0.50 - 1.04 MG/DL Final 06/01/2014 12:32 AM 0.55 0.50 - 1.04 MG/DL Final Creatinine, Serum-LC Date/Time Value Ref Range Status 01/22/2018 08:55 AM 0.63 0.57 - 1.00 mg/dL Final 10/28/2017 12:40 PM 0.58 0.44 - 1.19 mg/dL Final 09/04/2017 04:00 PM 0.58 0.57 - 1.00 mg/dL Final CREATININE-Q Date/Time Value Ref Range Status 11/02/2018 11:55 AM 0.61 0.50 - 0.99 mg/dL Final Comment: For patients >49 years of age, the reference limit for Creatinine is approximately 13% higher for people identified as -Chilean. Date CrCl (mL/min) Dosing Regimen and frequency @ Times (mg) Vancomycin Level @ Time (mcg/mL) 10/13/24 91 1000 mg @1429 - 10/14/24 - 1000 mg Q12H @2118 - 10/15/24 110 1000 mg Q12H @0905, 2116 - 10/16/24 105 1000 mg Q12H @1217, 2245 17.0 @0346 10/17/24 93 1000 mg Q12H @1421 - - - Assessment & Plan Based on patient-specific levels and Bayesian monitoring, the current regimen is estimated to yield and AUC/AC of 468 mcg*hr/ml, which is therapeutic Plan is to: Continue current regimen of 1000 mg Q12H Check random level in 4-5 days unless there is any significant change in renal function. Plan to draw next level on 10/21/24 @3260 Thank you for allowing pharmacy to participate in the care of this patient. Please feel free to contact us with any questions or concerns. Edilma Buitrago, PharmD, BCPS [facility] Department of Pharmacy [facility] Phone: GAL: [phone] E [employer] Edilma Buitrago [facility]2025-01-19 23:16:41 Problem: Discharge Planning Goal: Adequate for discharge 10/16/20242314 by Zari Guadarrama RN Outcome: Progressing as expected 10/16/20242314 by Zari Guadarrama RN Outcome: Progressing as expected Goal: Effective communication 10/16/20242314 by Zari Guadarrama RN Outcome: Progressing as expected 10/16/20242314 by Zari Guadarrama RN Outcome: Progressing as expected Problem: Skin integrity Impaired (Risk or Actual) Goal: Wound healing 10/16/20242314 by Zari Guadarrama RN Outcome: Progressing as expected 10/16/20242314 by Zari Guadarrama RN Outcome: Progressing as expected Goal: Prevention of new skin breakdown 10/16/20242314 by Zari Guadarrama RN Outcome: Progressing as expected 10/16/20242314 by Zari Guadarrama RN Outcome: Progressing as expected Problem: Venous Thromboembolism, (actual or risk of) Goal: Absence of venous thromboembolism (Risk) 10/16/20242314 by Zari Guadarrama RN Outcome: Progressing as expected 10/16/20242314 by Zari Guadarrama RN Outcome: Progressing as expected Goal: Prevent further complications associated with VTE diagnosis (Actual) 10/16/20242314 by Zari Guadarrama RN Outcome: Progressing as expected 10/16/20242314 by Zari Guadarrama RN Outcome: Progressing as expected Problem: Infection Risk Goal: Absence of infection 10/16/20242314 by Zari Guadarrama RN Outcome: Progressing as expected 10/16/20242314 by Zari Guadarrama RN Outcome: Progressing as expected [place] [id number] 23:15:44 Problem: Falls, Risk of Goal: Absence of falls Outcome: Progressing as expected Problem: Pain Goal: Control of pain at or below patient's documented comfort goal Outcome: Progressing as expected Goal: Reduction in pain sensation Outcome: Progressing as expected Problem: Discharge Planning Goal: Adequate for discharge Outcome: Progressing as expected Goal: Effective communication Outcome: Progressing as expected Problem: Skin integrity Impaired (Risk or Actual) Goal: Wound healing Outcome: Progressing as expected Goal: Prevention of new skin breakdown Outcome: Progressing as expected Problem: Venous Thromboembolism, (actual or risk of) Goal: Absence of venous thromboembolism (Risk) Outcome: Progressing as expected Goal: Prevent further complications associated with VTE diagnosis (Actual) Outcome: Progressing as expected Problem: Infection Risk Goal: Absence of infection Outcome: Progressing as expected [facility]2025-01-19 17:35:13 Problem: Falls, Risk of Goal: Absence of falls Outcome: Progressing as expected Problem: Pain Goal: Control of pain at or below patient's documented comfort goal Outcome: Progressing as expected Goal: Reduction in pain sensation Outcome: Progressing as expected Problem: Discharge Planning Goal: Adequate for discharge Outcome: Progressing as expected Goal: Effective communication Outcome: Progressing as expected Problem: Skin integrity Impaired (Risk or Actual) Goal: Wound healing Outcome: Progressing as expected [place] [id number] 08:14:00 FULL OPERATIVE NOTE 10/16/2024 SURGEON: MD Jay Eric RESIDENT: MD Bijan, Jesus; MD Lyndon, Jarod PROCEDURE: Percutaneous ultrasound-guided access of left common femoral artery with images saved for hard copy Bilateral lower extremity arteriogram 3rd order arteriogram (superficial femoral artery) right lower extremity with intervention Drug coated balloon angioplasty of the right superficial femoral artery using a 5 mm x 40 mm Lutonix paclitaxel drug coated balloon Balloon angioplasty of the right peroneal and anterior tibial artery using a 2.5 mm x 150 mm [place] balloon Closure of left arteriotomy using Angioseal device 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 It was decided to perform the above procedures(s) to assist with wound healing and infection clearance.. The surgery, risks and benefits were explained to the patient, and a consent form was signed. Patient is aware of the risk of bleeding, infection, damage to surrounding structures including nerves and the possible need for revision in the future. FINDINGS: Right Lower Extremity - Common femoral artery - patent without any significant stenosis - Superficial femoral artery -patent proximally, distal one third had high-grade greater than 70% focal stenotic lesion over the course of 1 cm, completely resolved with balloon angioplasty - Profunda femoris artery - patent without any significant stenosis - Popliteal artery - patent without any significant stenosis - Anterior tibial artery -patent proximally with minimal stenosis, distally it occludes at the ankle without flow into the dorsalis pedis artery (disease portion is roughly 10 cm). Following balloon angioplasty there is improved flow to the ankle with collateralization into the foot and flow into the dorsalis pedis artery. - Tibioperoneal trunk -stenotic over 2 cm greater than 70%, resolved with balloon angioplasty - Peroneal artery -heavily diseased to the ankle total distance is greater than 10 cm, resolved with balloon angioplasty, multiple collateralization into the foot - Posterior tibial artery -occluded proximally and distally without reconstitution - Dorsalis pedis arteries -heavily stenosed greater than 75% - Pedal- arch poor perfusion, heavily calcified, minimal branches into the toes All vessels have calcification present Left Lower Extremity - Common femoral artery - patent without any significant stenosis - Superficial femoral artery - patent without any significant stenosis through the proximal third - Profunda femoris artery - patent without any significant stenosis -All vessels have calcification present DESCRIPTION OF PROCEDURE: The patient brought the operative theater and placed supine on the OR table. Sedation was provided and the bilateral groins were prepped and draped in a sterile fashion. A timeout was performed confirming the correct patient, procedure, needed equipment, and site laterality. The patient received Ancef as a preoperative antibiotic. I began by identifying the left common femoral artery under ultrasound guidance confirming the artery is widely patent. The artery had moderate calcification in its vessel wall. The artery is accessed using a 4 Thai micropuncture kit and a Seldinger technique. Access arteriogram showed appropriate access of the common femoral artery. An 035 Glidewire is placed up into the abdomen over this wire the micro sheath was exchanged out for a 5 Thai sheath. The aortic bifurcation was crossed using an Omni Flush catheter and the Glidewire placed down into the mid superficial femoral artery. The 5 Thai sheath was exchanged out for a 6 Thai 90 cm destination sheath which was parked in the mid superficial femoral artery. An arteriogram of the left lower extremity was then obtained at this time which showed a focal high-grade superficial femoral artery stenosis in addition to two-vessel runoff to the ankle through the peroneal and anterior tibial artery both of which were heavily diseased and no named vessel perfusion in the foot. Over an 014 advantage Glidewire balloon angioplasty (drug-coated balloon 5 x 40 mm) was performed of the superficial femoral artery lesion resulting in complete resolution of the stenosis. Balloon angioplasty was then performed of the peroneal artery and tibioperoneal trunk (2.5 x 150 mm balloon) this resulted in improved flow through the peroneal artery and collateralization to the foot. The anterior tibial artery is then accessed and a balloon angioplasty of the distal aspect of the heavily diseased artery was performed using the same 2.5 x 150 mm balloon resulting in improved flow through the anterior tibial artery and establishing flow into the dorsalis pedis artery. The dorsalis pedis artery is heavily diseased and the pedal arch is not intact. There is minimal perfusion to the distal digits. After completion of the angioplasty the catheter and wires were withdrawn. A proximal arteriogram was obtained of the common femoral, profunda femoris, and proximal superficial femoral artery through the 6 Thai sheath which showed that all were patent. The sheath and wire were then drawn back to the left iliac system and the access site closed with a 6 Thai Angio-Seal device followed by manual pressure. Gauze and Tegaderm were applied as dressing. Attention was then turned towards the toe amputation. The second digit was ischemic and gangrenous. The digit was removed using a 15 blade carrying an elliptical incision down to the bone and the digit was transected just proximal to the metatarsal head. The toe was handed off as specimen for pathology. The wound was then irrigated and partially closed using 2-0 nylon suture. There was healthy bleeding from the wound bed which was controlled with electrocautery manual pressure. The wound was then packed open the foot was wrapped with gauze and Seven wrap. At the completion of the toe amputation our anesthesia colleagues proceeded to perform a ankle block to assist with postoperative pain control. The patient was then awoken and transferred to recovery in stable condition. Instrument and sponge counts were correct. Dr. Jay was present for and directed the entire procedure. Jesus Thakkar MD PGY-5, Vascular Surgery I agree with the operative dictation by Dr. Thakkar. I was present for and directed this entire procedure. Vascular surgery Luis Jay MD 10/19/2024 [facility]2025-01-19 08:14:00 BRIEF OPERATIVE NOTE Date of Surgery: 10/16/2024 Faculty physician: Luis Jay MD Resident physician: Jarod Haney MD; Jesus Thakkar MD Anesthesia Type: MAC Pre-operative diagnosis: necrosis of the 2nd toe of the right foot; PAD Post-operative diagnosis: Same Procedures: - Bilateral lower extremity angiogram - Right peroneal anigoplasty with [id number] [place] balloon - Right AT angioplasty with [id number] [place] balloon - Distal right SFA lesion angioplasty with 5x40mm [place] drug coated balloon - Post angioplasty angiography with no significant residual stenosis Findings: Multifocal stenosis of the right peroneal artery Multifocal stenosis resulting in occlusion of the right AT Post angioplasty angiography with inline flow through the peroneal and AT to the level of the ankle. Severe distal right SFA stenosis. Post angioplasty angiography with no significant residual stenosis Left PT occlusion proximally Left peroneal and AT with multifocal stenoses Complications: none apparent Estimated blood loss: 20 mL Specimens: none Drains: none Specific postop instructions: Lay flat 2 hours See dictated note for full details. Jarod Haney MD, PGY 5 Interventional Radiology - Integrated E NETWORK ENGINEER Associated attestation - Luis Jay MD - 10/16/2024 8:07 PM VOICE NETWORK ENGINEER Agreed. Luis Jay MD [id number] 18:45:35 Problem: Falls, Risk of Goal: Absence of falls Outcome: Progressing as expected Problem: Pain Goal: Control of pain at or below patient's documented comfort goal Outcome: Progressing as expected Goal: Reduction in pain sensation Outcome: Progressing as expected Problem: Discharge Planning Goal: Adequate for discharge Outcome: Progressing as expected Goal: Effective communication Outcome: Progressing as expected Problem: Skin integrity Impaired (Risk or Actual) Goal: Wound healing Outcome: Progressing as expected Problem: Venous Thromboembolism, (actual or risk of) Goal: Absence of venous thromboembolism (Risk) Outcome: Progressing as expected Problem: Infection Risk Goal: Absence of infection Outcome: Progressing as expected E NETWORK ENGINEER [facility] HospitalFkefda1496-84-56 09:06:27 Images from the original note were not included. General Vancomycin Note [facility] Clinical Pharmacist Consult Consulting Service: Vancomycin (Pharmacy to Dose) Pharmacy Vancomycin Therapeutic Monitoring Note Patient Name MREva Sex Unit Inocencia Wu [id number] 1955 female 2222/2222- Indication for vancomycin and goal Age Total Body Weight Skin and Soft Tissue Infection AUC/AC 400-600 mcg*hr/ mL 69 year old Wt Readings from Last 1 Encounters: 10/14/24 70 kg (154 lb 4.8 oz) Primary Physician: Dr. James ID Physician, if following: N/A Duration of Antibiotics: TBD (10/13/24 - present) Concurrent Antibiotics: Cefepime 1gm IV Q8H (10/13/24 - present) Microbiology: None collected Laboratory Data and Vancomycin Dosing CREATININE Date/Time Value Ref Range Status 10/13/2024 12:58 PM 0.53 0.50 - 1.04 mg/dL Final 09/20/2024 01:27 AM 0.51 0.50 - 1.04 mg/dL Final 09/06/2024 09:49 AM 0.52 0.50 - 1.04 mg/dL Final 06/05/2014 05:33 AM 0.52 0.50 - 1.04 MG/DL Final 06/04/2014 04:17 AM 0.50 0.50 - 1.04 MG/DL Final 06/01/2014 12:32 AM 0.55 0.50 - 1.04 MG/DL Final Creatinine, Serum-LC Date/Time Value Ref Range Status 01/22/2018 08:55 AM 0.63 0.57 - 1.00 mg/dL Final 10/28/2017 12:40 PM 0.58 0.44 - 1.19 mg/dL Final 09/04/2017 04:00 PM 0.58 0.57 - 1.00 mg/dL Final CREATININE-Q Date/Time Value Ref Range Status 11/02/2018 11:55 AM 0.61 0.50 - 0.99 mg/dL Final Comment: For patients >49 years of age, the reference limit for Creatinine is approximately 13% higher for people identified as -Chilean. Date CrCl (mL/min) Dosing Regimen and frequency @ Times (mg) Vancomycin Level @ Time (mcg/mL) 10/13/24 -- 1000 mg IV given @ 1429 - 10/14/24 91.3 1000 mg IV scheduled for 944, 2117 - 10/15/24 110 1000 mg IV Q12H scheduled - - - - - Assessment & Plan Based on patient-specific levels and Bayesian monitoring, the current regimen is estimated to yield and AUC/AC of 490 mcg*hr/ml, which is therapeutic Plan is to: Continue Vancomycin 1000 mg IV Q12H Plan to draw next level on: _10/16_ @ _0500 with morning labs. Thank you for allowing pharmacy to participate in the care of this patient. Please feel free to contact us with any questions or concerns. Zacarias Del Angel PharmD [facility] Department of Pharmacy [facility] Phone: GAL: [phone] SE Del Angel RPHUTMB - [id number] 15:51:31 Called report to Abbie Gonzalez. Spoke to ARNULFO Dillon. E NETWORK ENGINEER Soila Valdez [facility] - [id number] 11:44:00 Full Operative Note Date: 10/14/2024 Preoperative Diagnosis: Peripheral Arterial Disease Postoperative Diagnosis: Peripheral Arterial Disease Procedure: - Ultrasound guided access of the left common femoral artery - Abdominal aortogram -Pelvic arteriogram - right lower extremity arteriogram of the common femoral artery, profunda femoris and superficial femoral artery -Right lower extremity arteriogram of the popliteal artery, TP trunk, anterior tibial, posterior tibial, peroneal artery and dorsalis pedis artery -Closure of access-site with 6Fr AngioSeal Faculty Surgeon: Dr. Casanova, Dr. Sena Resident Surgeon: Celestine Mcqueen MD Anesthesia: MAC and local EBL: 20cc Indications: Inocencia Wu is a 69 year old female presenting with right foot tissue loss with non-invasive vascular imaging showing peripheral arterial disease. She benefits from anatomic assessment of disease with possible endovascular intervention. Benefits, risks, alternatives were discussed with the patient who agreed to proceed. Findings: -No significant aorto-iliac occlusive disease -Patent R [employer] and R femoral bifurcation -Non-occlusive stenosis of the R SFA -Significant stenosis of the proximal right AT, PT and peroneal arteries -Complete occlusion of the proximal right AT, PT with high grade stenosis of the R peroneal which is the main feeding vessel to the foot. -Sluggish filling of the plantar arch through R peroneal -Access-site closure with 6Fr Angioseal Procedure in detail: The patient was brought to the operating room and laid in supine position. Time out was performed confirming correct procedure. Monitored anesthesia care commenced. Bilateral groins were prepped and draped in the usual sterile fashion with chlorhexidine solution. Ultrasound guided access of the left common femoral artery was obtained with a micropuncture needle. The micropuncture needle was exchanged for a micropuncture sheath over the wire using Seldinger technique. An 0.035 [place] wire advantage was advanced into the abdominal aorta and the micropuncture sheath was exchanged for a 6 Thai sheath. The Omni flush catheter was advanced over the wire and an abdominal aortogram was performed with the findings as above. The Omni-flush catheter was exchanged [id number]-[id number] with a angled Glidecath which was then advanced distally. The right distal external iliac artery was catheterized using the up and over technique and the right lower extremity arteriogram was performed with the findings as above. The right [employer], bifurcation, proximal SFA and PFA were patent. The mid-distal SFA demonstrated 50% stenosis.Complete occlusion of the proximal right AT, PT with high grade stenosis of the R peroneal which is the main feeding vessel to the foot. This was considered very high risk for endovascular intervention. The left common femoral sheath was removed and the arteriotomy was closed with a 6 Thai AngioSeal device. Sterile dressings were applied. The patient tolerated the procedure well and was transferred to PACU in stable condition. Complications: none Dispo: PACU then TTF Specific Postop Instructions: -Lay flat for 2h. -Recommend transfer to [facility] under vascular surgery service anticipating revascularization procedure of the right lower extremity. Celestine Mcqueen MD PGY- 2 General Surgery E NETWORK ENGINEER Associated attestation - Nader Casanova MD - 10/24/2024 9:11 AM VOICE NETWORK ENGINEER I was present in the OR for all of the hatfield portions of the procedure and immediately available throughout the entire procedure. Nader Casanova MD [facility] [id number] 11:44:00 BRIEF OPERATIVE NOTE Date of Surgery: 10/14/2024 Surgeons and Role: * Nader Casanova MD - Primary * Andrew Sena DO - Assisting * Celestine Hadley MD - Resident - Assisting Pre-Op Diagnosis: Peripheral arterial disease [I73.9] Post-Op Diagnosis Codes: * Peripheral arterial disease [I73.9] Procedures: Procedure(s) (LRB): ANGIOGRAM VIA LOWER EXTREMITY ACCESS (Bilateral) CPT: CODINGHELP, Any Complications Encounters: None Estimated Blood Loss: 20 cc Specimens Removed: * No specimens in log * Implant Name Type Inv. Item Serial No. Air And Water Filler Lot No. LRB No. Used Action ANGIO-SEAL VIP 6RF TERUMO #[id number] - SN/A Sealant ANGIO-SEAL VIP 6RF TERUMO #[id number] N/A TERUMO [id number] Left 1 Implanted Patient's Condition: Stable to PACU Findings: -No significant aorto-iliac occlusive disease -Patent R [employer] and R femoral bifurcation -Non-occlusive stenosis of the R SFA -Significant stenosis of the proximal right AT, PT and peroneal arteries -Complete occlusion of the proximal right AT, PT with high grade stenosis of the R peroneal which is the main feeding vessel to the foot. -Sluggish filling of the plantar arch through R peroneal -Access-site closure with 6Fr Angioseal Any other important information: -Lay flat for 2h. -Recommend transfer to [place] under vascular surgery service anticipating revascularization procedure of the right lower extremity. Please see dictated operative report for additional detail. Celestine Mcqueen MD PGY- 2 General Surgery [facility]2025-01-17 11:15:58 Images from the original note were not included. General Vancomycin Note [facility] Clinical Pharmacist Consult Consulting Service: Vancomycin (Pharmacy to Dose) Pharmacy Vancomycin Therapeutic Monitoring Note Patient Name MRN Sex Unit Inocencia Wu [id number] 1955 female 2/2222- Indication for vancomycin and goal Age Total Body Weight Skin and Soft Tissue Infection AUC/AC 400-600 mcg*hr/ mL 69 year old Wt Readings from Last 1 Encounters: 10/14/24 70 kg (154 lb 4.8 oz) Primary Physician: Dr. James ID Physician, if following: N/A Duration of Antibiotics: TBD (10/13/24 - present) Concurrent Antibiotics: Cefepime 1gm IV Q8H (10/13/24 - present) Microbiology: None collected Laboratory Data and Vancomycin Dosing CREATININE Date/Time Value Ref Range Status 10/13/2024 12:58 PM 0.53 0.50 - 1.04 mg/dL Final 09/20/2024 01:27 AM 0.51 0.50 - 1.04 mg/dL Final 09/06/2024 09:49 AM 0.52 0.50 - 1.04 mg/dL Final 06/05/2014 05:33 AM 0.52 0.50 - 1.04 MG/DL Final 06/04/2014 04:17 AM 0.50 0.50 - 1.04 MG/DL Final 06/01/2014 12:32 AM 0.55 0.50 - 1.04 MG/DL Final Creatinine, Serum-LC Date/Time Value Ref Range Status 01/22/2018 08:55 AM 0.63 0.57 - 1.00 mg/dL Final 10/28/2017 12:40 PM 0.58 0.44 - 1.19 mg/dL Final 09/04/2017 04:00 PM 0.58 0.57 - 1.00 mg/dL Final CREATININE-Q Date/Time Value Ref Range Status 11/02/2018 11:55 AM 0.61 0.50 - 0.99 mg/dL Final Comment: For patients >49 years of age, the reference limit for Creatinine is approximately 13% higher for people identified as -Chilean. Date CrCl (mL/min) Dosing Regimen and frequency @ Times (mg) Vancomycin Level @ Time (mcg/mL) 10/13/24 -- 1000 mg IV given @ 1429 - 10/14/24 91.3 1000 mg IV scheduled for 0945 - - - - - - Assessment & Plan Based on patient-specific levels and Bayesian monitoring, the current regimen is estimated to yield and AUC/AC of 492.7 mcg*hr/ml, which is therapeutic Plan is to: Start vancomycin scheduled at a dose of: Vancomycin 1000 mg IV Q12H Plan to draw next level on: _10/16_ @ _0500 with morning labs. Thank you for allowing pharmacy to participate in the care of this patient. Please feel free to contact us with any questions or concerns. Angeles Dean, [facility], PharmD [facility] Department of Pharmacy - [facility] Phone: ADC: [phone] E NETWORK ENGINEER Angeles Dean [facility]2025-01-16 22:31:40 Problem: Falls, Risk of Goal: Absence of falls Outcome: Progressing as expected Problem: Pain Goal: Control of pain at or below patient's documented comfort goal Outcome: Progressing as expected Goal: Reduction in pain sensation Outcome: Progressing as expected Problem: Discharge Planning Goal: Adequate for discharge Outcome: Progressing as expected Goal: Effective communication Outcome: Progressing as expected Problem: Skin integrity Impaired (Risk or Actual) Goal: Wound healing Outcome: Progressing as expected Goal: Prevention of new skin breakdown Outcome: Progressing as expected Problem: Venous Thromboembolism, (actual or risk of) Goal: Absence of venous thromboembolism (Risk) Outcome: Progressing as expected Goal: Prevent further complications associated with VTE diagnosis (Actual) Outcome: Progressing as expected Problem: Infection Risk Goal: Absence of infection Outcome: Progressing as expected [facility] Natali Frazier [id number] 15:41:04 Patient admitted to [facility] med surg for diagnosis of toe infection. Patient agrees to admission, discussed plan of care with patient and family. Patient is awake, A&Ox4, RR even and unlabored on RA. Color appropriate for race. PIV intact x1. No adverse reaction to medications administered while in ED. Belongings with patient to unit. [facility] Yara Orellana [facility] HospitalYchrdi7202-01-00 15:31:52 Nurse Report Report given to Boo. Chief complaint, assessment findings, infusion verify and orders reviewed. Yara Orellana RN [facility]2025-01-16 12:25:06 Pt arrived ambulatory with cane states her right first 2nd toes has been infected since August, currently taking Augmentin, see Dr. Carlson. Pt states it is only getting worse. Second toe appears blackish infecting 1st and 3rd toe and spreading to metatarsals of foot causing redness. E NETWORK ENGINEER Yenifer Glass [facility] - [id number] 12:01:00 Images from the original note were not included. [facility] Emergency Department Note Patient Name: Inocencia Wu Date of : 1955 69 year old female Treatment Room: ID5/[facility] Primary Care Physician: Anselmo Plasencia Patient Escorted by: Self [9] Mode of Arrival: Personal means [1] EMS Treatment Prior to ED Arrival: Travel and Exposure Screening: Symptoms Does patient have any of these symptoms?: (not recorded) Exposure Screening Has patient had contact with someone with a communicable disease in the last month?: (not recorded) Diseases exposed to:: (not recorded) Is Patient ?: (not recorded) Exposure Date: (not recorded) Chief Complaint: Chief Complaint Patient presents with Diabetic Foot Ulcer History of Present Illness: The patient presents from home for evaluation for a wound to her right foot that is been getting worse over the past several weeks. She has been previously admitted to the hospital for this wound and is currently on antibiotics. She is also followed up with podiatry as an outpatient. No fevers. She reports a history of diabetes but does not take any medication for this. She normally ambulates using a cane and has been doing so recently. She denies any recent injury or trauma. Here for evaluation. Past Medical History/Immunizations: Past Medical History: Diagnosis Date Abnormal chest CT calcified granuloma 8mm RUL per chest CT 12/12/16, no f/u needed per Dr. Becerra Blood dyscrasia DM2 (diabetes mellitus, type 2) noton medications due to controlled. History of gangrene 2013 History of nocturia Hyperlipidemia Hypovitaminosis D 01/05/2018 Leiomyoma of uterus resolved ? in her 20's MSSA (methicillin susceptible Staphylococcus aureus) infection 07/30/2018 Pulmonary nodules 02/16/2019 RA (rheumatoid arthritis) Superficial thrombophlebitis Thyroid disease Urinary incontinence Urinary urgency Tetanus received in last 5 years: Yes Allergies: Allergies Allergen Reactions Doxycycline Nausea and/or Vomiting Sulfa (Sulfonamide Antibiotics) Nausea and/or Vomiting Bactrim Past Social History: Tobacco Use Former Smokeless Tobacco: Never used smokeless tobacco. Comments: Quit smoking around 2011 Vaping Use Never used Alcohol Use Yes. Comments: rare Drug Use No. Sexual Activity Not currently sexually active; Partners: Male; Control/Protection: Post-menopausal. Past Surgical History: Past Surgical History: Procedure Laterality Date BUNIONECTOMY Right 12/23/2018 Surgeon: Aayush Carlson Jr., DPM; Location: [facility] OR [facility] DEBRIDEMENT OF FINGER WOUND (SHX) 06/01/2014 FINGER AMPUTATION Left 06/06/2014 Surgeon: Sherice Clemons MD; Location: [facility] OR LOCATION FINGER AMPUTATION 2016 Left Hand / middle finger HAND DEBRIDEMENT Left 06/01/2014 Surgeon: Sherice Clemons MD; [facility] SHEN BUNION (SHX) Right 12/23/2018 Surgeon: Aayush Carlson Jr., DPM; Location: [facility] OR [facility] TOTAL KNEE ARTHROPLASTY Left 02/15/2018 Surgeon: Parth Ibarra MD; Location: [facility] TOTAL KNEE ARTHROPLASTY Right 02/14/2019 Surgeon: Parth Ibarra MD; Location: [facility] OR [facility] Review of Systems: Review of Systems Constitutional: Negative for chills and fever. Respiratory: Negative for cough. Cardiovascular: Negative for chest pain. Genitourinary: Negative for dysuria. Musculoskeletal: Negative for arthralgias, neck pain and neck stiffness. Skin: Positive for wound. Neurological: Negative for dizziness. Psychiatric/Behavioral: Negative for agitation. Physical Exam: ED Triage Vitals [10/13/24 1230] Weight 71.7 kg (158 lb) Actual or estimated Estimated by patient/family report Height 1.6 m (5' 3") BP (!) 200/84 Pulse 62 Resp 16 Temp 36.8 ?C (98.2 ?F) Temp source Oral SpO2 100 % Measured on Room air Physical Exam Vitals and nursing note reviewed. Constitutional: Appearance: Normal appearance. She is normal weight. HENT: Head: Normocephalic and atraumatic. Cardiovascular: Rate and Rhythm: Normal rate. Pulmonary: Effort: Pulmonary effort is normal. No respiratory distress. Abdominal: General: There is no distension. Musculoskeletal: Cervical back: Neck supple. Skin: Comments: The medial aspect of her right second toe is black with an open wound but not malodorous and not actively draining. Neurological: General: No focal deficit present. Mental Status: She is alert and oriented to person, place, and time. Radiology: XR Foot 3+ vw right Final Result ORDERING PHYSICIAN: MIRIAM HILL. HISTORY: right foot/toe wound TECHNIQUE: 3 views COMPARISON: 09/20/2024 FINDINGS: Alignment is anatomic. Bunionectomy changes are present. Solitary partially threaded screws transfix old healed osteotomies of distal first and fifth metatarsals. There is moderate tibiotalar joint space narrowing. Moderate plantar calcaneal spurring is seen. There are vascular calcifications. IMPRESSION The wound is not well-characterized on radiograph. No focal bone destruction to indicate osteomyelitis. End of Report Lab Results: Lab Results CBC WITH DIFF - Abnormal Result Value Ref Range WBC 5.26 4.30 - 11.10 10*3/?L RBC 3.64 (*) 3.93 - 5.25 10*6/?L HGB 10.5 (*) 11.6 - 15.0 g/dL HCT 33.1 (*) 35.7 - 45.2 % MCV 90.9 80.6 - 95.5 fL MCH 28.8 25.9 - 32.8 pg MCHC 31.7 31.6 - 35.1 g/dL RDW-SD 50.0 (*) 39.0 - 49.9 fL RDW-CV 15.4 12.0 - 15.5 % PLT 165 (*) 166 - 358 10*3/?L MPV 10.4 9.5 - 12.9 fL NRBC/100 WBC 0.0 0.0 - 10.0 /100 WBCs NRBC x103<0.01 10*3/?L GRAN MAT (NEUT) % 57.6 % IMM GRAN % 0.40 % LYMPH % 34.0 % MONO % 4.2 % EOS % 3.2 % BASO % 0.6 % GRAN MAT x103(ANC) 3.03 1.88 - 7.09 10*3/uL IMM GRAN x103<0.03 0.00 - 0.06 10*3/uL LYMPH x1031.79 1.32 - 3.29 10*3/uL MONO x1030.22 (*) 0.33 - 0.92 10*3/uL EOS x1030.17 0.03 - 0.39 10*3/uL BASO x1030.03 0.01 - 0.07 10*3/uL COMP. METABOLIC PANEL (04083) - Abnormal NA 142 135 - 145 mmol/L K 3.7 3.5 - 5.0 mmol/L CL 110 (*) 98 - 108 mmol/L CO2 TOTAL 28 23 - 31 mmol/L AGAP 4 2 - 16 BUN 14 7 - 23 mg/dL GLUCOSE 86 70 - 110 mg/dL CREATININE 0.53 0.50 - 1.04 mg/dL TOTAL BILI 0.9 0.1 - 1.1 mg/dL CALCIUM 9.0 8.6 - 10.6 mg/dL T PROTEIN 7.2 6.3 - 8.2 g/dL ALBUMIN 3.3 (*) 3.5 - 5.0 g/dL ALK PHOS 69 34 - 122 U/L ALTv 19 5 - 35 U/L AST(SGOT) 37 13 - 40 U/L eGFR 99.0 mL/min/1.73m2 SEDIMENTATION RATE - Abnormal ESR 73 (*) 0 - 20 mm/HR POCT GLUCOSE (AUTOMATED) - Normal POCT GLU 75 70 - 110 mg/dL POCT GLUCOSE(AGE >30DAYS) EKG: If EKG completed, see Procedure Note. Orders and Treatments: Orders Placed This Encounter Procedures XR Foot 3+ vw right CBC WITH DIFF COMP. METABOLIC PANEL (91195) Sedimentation Rate POCT GLUCOSE(AGE >30DAYS) POCT GLUCOSE (AUTOMATED) Consult Podiatry Adult Orders Placed This Encounter Medications vancomycin (VANCOCIN) 1,000 mg in NaCl 0.9% (NS) 250 mL VIAL-MATE IV piggyback ceFEPIme (MAXIPIME) 1,000 mg in NaCl 0.9% (NS) 100 mL MINI-BAG ceFEPIme (MAXIPIME) 1,000 mg in NaCl 0.9% (NS) 100 mL MINI-BAG enoxaparin (LOVENOX) injection 40 mg acetaminophen (TYLENOL) tablet 650 mg HYDROcodone-acetaminophen (NORCO 5) tablet 1 tablet First Provider Eval: ED Events Date/Time Event User Comments 10/13/246 Medical Screening Begins MIRIAM HILL DO -- 10/13/24 1206 First Provider Evaluation MIRIAM HILL DO -- AdmissionCare Guideline: Cellulitis, Observation Based on the indications selected for the patient, the bed status of Observation was determined to be MET The following indications were selected as present at the time of evaluation of the patient: - Observation Care Admission Criteria - Observation care is indicated for 1 or more of the following: - Failure of outpatient therapy (eg, progression or no improvement on antibiotic regimen) requiring immediate adjustment or initiation of IV antibiotics (ie, while treatment at lower level of care is arranged) AdmissionCare documentation entered by: Miriam Hill [facility], 28 edition, Copyright ? 2023 [facility] Hospitali[facility] All Rights Reserved. [id number]:55:55-06:00 ED COURSE Diagnosis/Impression as of 10/13/24 1455 Toe infection Procedures: Procedures MDM: Medical Decision Making The patient presents from home for evaluation for a wound to her right foot that is been getting worse over the past several weeks. She has been previously admitted to the hospital for this wound and is currently on antibiotics. She is also followed up with podiatry as an outpatient. No fevers. She reports a history of diabetes but does not take any medication for this. She normally ambulates using a cane and has been doing so recently. She denies any recent injury or trauma. Vital signs are stable in ER. Her right second toe is black and has an open wound on the medial aspect but is not malodorous and is not actively draining. She is able to wiggle her toes of her right foot without difficulty. Her right foot is pink and warm to the touch. No concern for osteomyelitis. Will check laboratory studies including a sedimentation rate and check an x-ray. Anticipate need for admission later on. 1440 -the patient is doing well here in the ER. Her laboratory studies show normal glucose but elevated segmentation rate at 73. Her x-ray shows no acute osseous injuries. As her wounds have worsened despite oral antibiotics the patient does require admission for continued management. Spoke with Dr. James with the internal medicine service and the patient was accepted for admission for continued management. Problems Addressed: Toe infection: acute illness or injury Amount and/or Complexity of Data Reviewed Labs: ordered. Decision-making details documented in ED Course. Radiology: ordered and independent interpretation performed. Decision-making details documented in ED Course. Risk Decision regarding hospitalization. Flowsheet Documentation: Scoring Tools: No data recorded Disposition/Condition: ED Disposition ED Disposition Admit - Observation Condition -- Comment Treatment Team: [facility] [[id number]] Discharge Medications: Patient's Medications START taking these medications No medications on file CONTINUE taking these medications which have NOT CHANGED ATORVASTATIN 10 MG TABLET TAKE 1 TABLET BY MOUTH EVERYDAY AT BEDTIME HYDROCODONE-ACETAMINOPHEN 10-325 MG TABLET Take 1 tablet by mouth every 4 (four) hours as needed for Pain (scale 4-6). IBUPROFEN 200 MG CAPSULE Take by mouth. LEVOTHYROXINE 50 MCG TABLET Take 1 tablet by mouth every morning. METHOTREXATE 2.5 MG TABLET TAKE 8 TABLETS BY MOUTH ONCE WEEKLY OMEPRAZOLE 40 MG CAPSULE Take 1 capsule by mouth in the morning. START taking Modified Medications as Prescribed No medications on file STOP taking these medications No medications on file Follow-up: Electronically signed by: Miriam Hill DO 10/13/24 1456 [facility]2025-01-16 12:01:00 AdmissionCare Guideline: Cellulitis, Observation Based on the indications selected for the patient, the bed status of Observation was determined to be MET The following indications were selected as present at the time of evaluation of the patient: - Observation Care Admission Criteria - Observation care is indicated for 1 or more of the following: - Failure of outpatient therapy (eg, progression or no improvement on antibiotic regimen) requiring immediate adjustment or initiation of IV antibiotics (ie, while treatment at lower level of care is arranged) AdmissionCare documentation entered by: Miriam Hill [facility], 28th edition, Copyright ? 2023 [facility] All Rights Reserved. [id number]:00 [facility]2024-12-28 21:46:00 Pt given printed and verbal discharge instructions regarding myalgia, H/O rheumatoid arthritis, noncompliance with medication treatment due to underuse of medication, encouraged hydration, Pt verbalized understanding of instructions, pt awake alert oriented, resp reg unlabored, skin w/d, color appropriate for race, moves all ext well,pt encouraged to follow up with pcp Advised to seek medical attention for new/prolonged/worsening of symptoms No adverse reaction to meds given in ER noted upon discharge Awake, alert oriented, resp reg unlabored, skin w/d, pt leaving via WC with family, in no apparent distress, E NETWORK ENGINEER Ruth Ardon [facility] [id number] 19:21:46 Toned out to [facility] for pain all over with hx of arthritis; denies SOB and chest pain; pt. Took hydrocodeine and 2 steroids [employer] E NETWORK ENGINEER Magdalena Jaeger [facility] HospitalJsxswg4653-32-55 12:51:25 TRANSITIONAL CARE MANAGEMENT ASSESSMENT 09/22/2024 Inocencia Wu [id number] Inocencia Wu is a 69 year old /White female was admitted on 09/20/24 to [facility], ADC MED SURG. She was discharged on 09/20/24 with discharge disposition of HR- Routine Discharge. Admitting Physician: Ashley Corral Discharge Diagnosis: Right foot pain to rule out osteomyelitis No linked episodes TCM Pqf-fswd-dq-face outreach documentation: Discharge Assessment Chart Assessed: 09/22/24 TCM Outreach Completed: 09/22/24 Do you have a few minutes to speak with me about how you are doing at home?: Yes (Pt states she still has some pain. Discussed OTC pain medication. Pt has an appointment with her PCP tomorrow.) Discharge Instructions Do you understand your at-home instructions?: Yes (No questions at this time.) Medications Have you filled your prescriptions and do you have them in your home? : See comments (Pt states her daughter will chart picker prescription.) Do you know how to take your medications?: Yes Supplies Did you receive applicable home medical supplies/equipment?: N/A Follow Up Appointment Has a follow up appointment been scheduled?: Yes Are you able to get to your appointment? Who will be taking you?: Yes (Pt states she has transportation.) Home Health Assistance Has the home health nurse contacted you since you've been home?: N/A Survey - Recognition Do you have any other questions or concerns at this time?: No Future Appointments: PCP 09/23/2024 Dr. Carlson 09/27/2024 Future Appointments Provider Department Dept Phone 04/14/2025 3:00 PM Mili Schwartz MD [facility] [phone] E NETWORK ENGINEER Davonte Oseguera [facility] - [id number] 11:44:12 Problem: Falls, Risk of Goal: Absence of falls 09/20/2024 1144 by Yazmin Croft RN Outcome: Resolved 09/20/2024 1143 by Yazmin Croft RN Outcome: Adequate for discharge Problem: Pain Goal: Control of pain at or below patient's documented comfort goal 09/20/2024 1144 by Yazmin Croft RN Outcome: Resolved 09/20/2024 1143 by Yazmin Croft RN Outcome: Adequate for discharge Problem: Discharge Planning Goal: Adequate for discharge 09/20/2024 1144 by Yazmin Croft RN Outcome: Resolved 09/20/2024 1143 by Yazmin Croft RN Outcome: Adequate for discharge Problem: Venous Thromboembolism, (actual or risk of) Goal: Absence of venous thromboembolism (Risk) 09/20/2024 1144 by Yazmin Croft RN Outcome: Resolved 09/20/2024 1143 by Yazmin Croft RN Outcome: Adequate for discharge Problem: Skin integrity Impaired (Risk or Actual) Goal: Wound healing 09/20/2024 1144 by Yazmin Croft, ARNULFO Outcome: Resolved 09/20/2024 1143 by Yazmin Croft RN Outcome: Adequate for discharge Problem: Infection Risk Goal: Absence of infection 09/20/2024 1144 by Yazmin Croft RN Outcome: Resolved 09/20/2024 1143 by Yazmin Croft RN Outcome: Adequate for discharge [facility]2024-12-24 06:14:19 Patient admitted to [facility] for diagnosis of blister of right foot Patient agrees to admission, discussed plan of care with patient and family. Patient is awake, alert, oriented, resp reg unlabored, color appropriate for race, PIV intact No adverse reaction to medications administered while in ED Belongings with patient to unit Report to Seema SE Chong [facility] HospitalTbvhfy6528-77-79 05:35:43 Images from the original note were not included. Grips - New Start Vancomycin Note [facility] Clinical Pharmacist Consult Consulting Service: Vancomycin (Pharmacy to Dose) Brief Pharmacy Note Patient Name VIRIDIANA MORGAN Sex Unit Inocencia Wu [id number] 1955 female ADC [id number] Indication for vancomycin and goal Age Total Body Weight Skin and Soft Tissue Infection AUC/AC 400-600 mcg*hr/ mL 69 year old Wt Readings from Last 1 Encounters: 09/20/24 65.8 kg (145 lb) Pharmacy was consulted to manage patient's vancomycin therapy. The following changes were made to the patient’s regimen: Vancomycin 1000 mg IV q 12 hrs. Estimated AUC ~452.7. A formal note will be documented in the morning. Pharmacy will continue to follow. Please call pharmacy with questions or concerns. Miriam Maxwell RPH, PharmD [facility] Department of Pharmacy - [facility] Phone: ADC: [phone] SE Maxwell [facility]2024-12-24 00:53:34 Pt reports having pain in right second toe for a month and has became worse in the last few days. Redness and swelling noted to area. SE Brewer [facility] HospitalFdiirw0882-48-74 00:40:00 AdmissionCare Guideline: General Observation, Observation Based on the indications selected for the patient, the bed status of Observation was determined to be MET The following indications were selected as present at the time of evaluation of the patient: - Observation Care Admission Criteria - Observation care is indicated for ALL of the following: - Clinical care needed is not appropriate for lower level of care (ie, discharge to outpatient setting not appropriate). - Clinical care (eg, testing, monitoring, or treatment) needed beyond usual emergency department time frame (eg, 3 to 4 hours) - Patient has clinical condition for which observation care is needed, as indicated by 1 or more of the following: - Musculoskeletal condition or finding (eg, injury, dislocation, fracture, suspected joint or bone infection, trauma, exacerbation of rheumatologic disease, suspected rhabdomyolysis, suspected compartment syndrome, frostbite) AdmissionCare documentation entered by: Dilip Hall [facility], 28th edition, Copyright ? 2023 [facility] All Rights Reserved. [id number]:43-06:00 [facility]2024-12-10 12:20:54 Patient is awake and alert, oriented x4. Speech is clear and appropriate. Respirations even and unlabored, no distress. Ambulatory with a steady gait. Reviewed discharge instructions, follow-up care, and RX with patient, verbalizes understanding. SE Bradford [facility] HospitalOajgmi3281-85-97 09:16:27 Patient reports having flu like symptoms for the past 5 weeks. Now here for abdominal pain while coughing for 2 days. No other symptoms- denies chest pain, shortness of breath, fevers at home, dysuria. Vitals stable. Afebrile at triage. HX: denies. E NETWORK ENGINEER Alba Saldivar [facility] HospitalDlngfw7041-83-46 00:00:00 William Peraza [facility]2024-11-05 00:00:00 William [place] [id number] 10:17:10 Patient notified of results/recommendations, understanding was verbalized via teach back. Calista Guillen [place] [id number] 00:00:00 [facility]24-[facility]-12 11:02:57 Images from the original note were not included. Vijaya Morgan [place] [id number] 13:30:00 Addended by: NEHA CHAUDHRY MD on: 06/09/2024 10:56 AM Modules accepted: Orders [facility] HospitalEikfmv2333-57-78 09:54:53 Received DME supply order for 14 fr. Straight intermittent catheter from [facility]. Form has been signed and faxed back. Will place in scan folder. Maria Victoria Maher RN Maria Victoria Trujillo [facility] HospitalPgafmd1421-48-10 15:15:00 Addended by: VIJAYA MORGAN on: 05/06/2024 04:02 PM Modules accepted: Orders Vijaya Morgan [place] [id number] 00:00:00 William Peraza [facility]2024-06-27 15:15:11 Refill request received for Requested Prescriptions Signed Prescriptions Disp Refills oxybutynin 10 mg 24 hr tablet 90 tablet 0 Sig: Take 1 tablet by mouth every morning. Authorizing Provider: ELLA FALLON Ordering User: PAN TREJO RN Patient compliant per [facility] Cardiology Refill Guidelines. Rx sent to: [facility]/pharmacy #[id number] [facility] [address] [place] [address] Patient is scheduled for follow-up 05/06/24. PAN TREJO RN 03/25/2024 11:42 AM Pan Trejo [facility] HospitalYinlwn8591-83-47 09:54:04 Form was faxed an filed away. Flores Wade [facility] HospitalIxtgll8733-02-91 09:15:[address] Holley's folder for review T [facility] HospitalJyxgdv2880-08-69 08:32:59 Copied from [facility] #[id number]. 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 Last O/V: 11/06/23 Last EKG : 11/06/23 Last ECHO: None Last Stress Test : None Layne Soto [facility] CenterIctcpd1827-70-77 00:00:00 William [facility]2024-03-15 08:54:17 Images from the original note were not included. Notified patient per Dr Holley: Darien Holley MD P Cardiology Nurse Holter showed no concerning arrhythmia. Average heart rate is 61. No concerns. Please fax summary pages 1-3 to PCP. Patient verbal understanding. Report faxed to PCP- Dr Plasencia. Layne Soto [facility] CenterKkhsjy9243-70-26 16:00:00 24 hour holter (SEER 1000, #5) applied to patient, tolerated well. Wear, care, diary entry and monitor return teaching given, understanding verbalized. Monitor to be returned on Thursday by 4pm, return letter acknowledged and signed. SE Nicole [facility] CenterOnvftw4526-46-56 00:00:00 William [facility]2024-01-09 00:00:00 [facility] [address] [facility]2023-08-21 13:32:05 Received refill request for oxyBUTYnin chloride ER 10 mg tablet,extended release 24 hr (DITROPAN-XL). 02.11.23, NOV 05.20.23. Refill sent to [facility]/pharmacy #[id number] [facility] [address] [place] [address] [facility] PokitDokDishpj7097-48-48 14:01:29 Colonoscopy Direct Scheduling Screening Check List We have received a referral from your doctor for a colonoscopy. Do you know what a colonoscopy is? Answer: Screening colonoscopy is a service performed by a licensed physician under anesthesia. The provider uses a flexible lighted tube called a colonoscope that is inserted into the rectum and the entire colon to look for polyps and cancer. People under the age of 75 qualify for screening colonoscopy exams. Are you 75 years of age or younger? Yes- We will continue with a screening questionnaire to determine if you qualify for a screening colonoscopy or if you will need further evaluation by a medical provider 1- Are you interested in getting a colonoscopy? Yes; we will proceed with some screening questions to determine next steps 2- Have you had a colonoscopy before? Has not previously had a colonoscopy performed. 3- Do you have any of the following symptoms: Unintentional weight loss 4- Do you take any of the medications listed below? Does not take blood thinning medications 5- How often do you have a bowel movement during the week? 3- less frequently than every other day Patient has answered "yes" to question 3 or question 4, and will be scheduled to see one of our advanced practitioners. - END OF QUESTIONNAIRE- . [facility] PokitDok
[2025-01-22 20:12] LABS: Absolute Basophils 0.1 K/uL (0-0.5); Absolute Eosinophils 0.5 K/uL (0-0.5); Absolute Lymphocytes (CBC) 2.1 K/uL (0.7-4.9); Absolute Monocytes 0.8 K/uL (0.1-1.3); Absolute Neutrophil 5.9 K/uL (1.8-8.0); Basophils % 0.7 % (0-1.3); Eosinophils % 5.2 % (0-4.4); Hematocrit 21.6 % (36.0-45.0); Hemoglobin 7.1 g/dL (12.0-15.0); Lymphocytes % 22.6 % (15.3-44.8); MCH 28.4 pg (27.0-35.0); MCV 86.2 fL (80-100); MPV 7.1 fL (7.6-11.3); Monocytes % 8.4 % (3.3-12.3); Neutrophils % 63.1 % (41.7-73.7); Platelets 278 thou/uL (152-406); Red Cell Distribution Width 17.5 % (12.1-15.2)
[2025-01-22 20:32] LABS: AST/SGOT 19 U/L (15-37); Albumin 1.4 g/dL (3.4-5.0); Albumin/Globulin Ratio 0.3 (1.1-1.8); Alkaline Phosphatase 94 U/L (45-117); Anion Gap 6.2 mEq/L (5.0-15.0); BUN Blood Urea Nitrogen 8 mg/dL (7-18); Bicarbonate 31 mEq/L (21-32); Bilirubin Total 0.3 mg/dL (0.2-1.0); Glomerular Filtration Rate 94 ml/min (=/>90); Glucose Level 180 mg/dL (74-106); Potassium 3.2 mEq/L (3.5-5.1); Protein, Total 6.4 g/dL (6.4-8.2); Sodium Level 139 mEq/L (136-145)
[2025-01-22 20:47] LABS: ALT/SGPT < 14 U/L (13-56)
[2025-01-22] MEDS ORDERED: HYDROCODONE/APAP 5/325 MG TAB ONE (20:54)
[2025-01-22] MEDS ORDERED: MORPHINE 4 MG/ML SYR ONE (22:52)
[2025-01-22] MEDS ORDERED: ONDANSETRON 4 MG/2 ML VIAL ONE (22:52)
[2025-01-22] MEDS ORDERED: TRANEXAMIC ACID 1,000 MG/10 ML VIAL IV ONE (22:53)
[2025-01-22] MEDS ORDERED: NA CHLORIDE 0.9% 100 ML ONE (22:53)
[2025-01-22 23:31] LABS: Absolute Basophils 0.1 K/uL (0-0.5); Absolute Eosinophils 0.4 K/uL (0-0.5); Absolute Lymphocytes (CBC) 2.5 K/uL (0.7-4.9); Absolute Monocytes 0.8 K/uL (0.1-1.3); Absolute Neutrophil 6.9 K/uL (1.8-8.0); Basophils % 0.6 % (0-1.3); Eosinophils % 3.8 % (0-4.4); Hematocrit 20.5 % (36.0-45.0); Hemoglobin 6.7 g/dL (12.0-15.0); Lymphocytes % 23.7 % (15.3-44.8); MCH 28.5 pg (27.0-35.0); MCHC 32.9 g/dL (32.0-36.0); MCV 86.7 fL (80-100); MPV 7.3 fL (7.6-11.3); Monocytes % 7.5 % (3.3-12.3); Neutrophils % 64.4 % (41.7-73.7); Platelets 290 thou/uL (152-406); RBC Red Blood Cell Count 2.36 M/uL (3.86-4.86)
--- NOTE | 2025-01-23 00:09 | ER ---
Nurse's Notes [facility] Name: Inocencia Wu Age: 69 yrs Sex: Female : 1955 Arrival Date: 01/22/2025 Time: 19:23 Bed 17 Private MD: Diagnosis: Postsurgical bleeding;Acute blood loss anemia Presentation: 01/22 19:30 Chief complaint: EMS states: toned out for bleeding from right foot. Transmetatarsal me1 amputation with debridement about 3 weeks ago. Patient woke up this afternoon and felt the bed was wet and was bleeding from right foot wound/incision. EMS estimated about 500 ml of blood loss. Given fentanyl 50 mcg IN. Coronavirus screen: Vaccine status: Patient reports receiving the 2nd dose of the covid vaccine. Ebola Screen: No symptoms or risks identified at this time. Initial Sepsis Screen: Does the patient meet any 2 criteria? No. Patient's initial sepsis screen is negative. Does the patient have a suspected source of infection? No. Patient's initial sepsis screen is negative. Risk Assessment: Do you want to hurt yourself or someone else? Patient reports no desire to harm self or others. Onset of symptoms was January 22, 2025 at 18:30. 19:30 Method Of Arrival: EMS: [facility] vt1 19:30 Acuity: ODALYS 3 me1 Triage Assessment: 19:32 General: Appears in no apparent distress. Behavior is calm, cooperative, appropriate me1 for age. Pain: Complains of pain in ball of right foot Pain does not radiate. Pain currently is 10 out of 10 on a pain scale. Quality of pain is described as aching, Pain began suddenly, Is continuous. EENT: No signs and/or symptoms were reported regarding the EENT system. Neuro: Level of Consciousness is awake, alert, obeys commands, Oriented to person, place, time, situation, Appropriate for age. Cardiovascular: Patient's skin is warm and dry. Respiratory: Airway is patent Respiratory effort is even, unlabored, Respiratory pattern is regular, symmetrical. GI: No signs and/or symptoms were reported involving the gastrointestinal system. : No signs and/or symptoms were reported regarding the genitourinary system. Derm: Skin is fragile, is thin, Wound noted ball of right foot. Musculoskeletal: Amputation of transmetatarsal amputation right foot. Historical: - Allergies: 19:32 Sulfa (Sulfonamide Antibiotics); me1 - PMHx: 19:32 Hypercholesterolemia; Atrial fibrillation; Depressive disorder; Hypothyroidism; me1 Gastroesophageal reflux disease; Coronary atherosclerosis; - PSHx: 19:32 amputation of toes right foot; me1 - Immunization history:: Adult Immunizations up to date. - Infectious Disease History:: Denies. - Social history:: Smoking status: Patient denies any tobacco usage or history of. - Family history:: not pertinent. Screenin:37 [facility] ED Fall Risk Assessment (Adult) History of falling in the last 3 months, me1 including since admission No falls in past 3 months (0 pts) Confusion or Disorientation No (0 pts) Intoxicated or Sedated No (0 pts) Impaired Gait Yes (1 pt) Mobility Assist Device Used Yes (1 pt) Altered Elimination Yes (1 pt) Score/Fall Risk Level 0 - 2 = Low Risk Maintained a safe environment, Provided non-skid footwear, Hourly rounding (assess needs \T\ fall precautionary measures) done. Abuse screen: Denies threats or abuse. Nutritional screening: No deficits noted. Tuberculosis screening: No symptoms or risk factors identified. Assessment: 19:37 General: See triage assessment. me1 20:45 Reassessment: surgicel, 4x4s and pressure applied with patricio wrap by Dr Coombs. me1 23:50 Reassessment: Consent for blood transfusion signed. me1 01/23 01:00 Reassessment: Patient and/or family updated on plan of care and expected duration. Pain ha1 level reassessed. 01:30 Reassessment: Patient and/or family updated on plan of care and expected duration. Pain ha1 level reassessed. Patient is alert, oriented x 3, equal unlabored respirations, skin warm/dry/pink. WOUND DRESSING CLEAN AND DRY. 02:00 Reassessment: FIRST UNIT OF BLOOD STARTED. ha1 03:15 Reassessment: Patient and/or family updated on plan of care and expected duration. Pain ha1 level reassessed. GOING TO ICU. BLOOD TRANSFUSION CONTINUED. Vital Signs: 01/22 19:30 BP 104 / 60; Pulse 78; Resp 16; Temp 98.4; Pulse Ox 100% ; Weight 64.86 kg; Height 5 me1 ft. 5 in. ; Pain 10/10; 20:00 BP 114 / 63; Pulse 83; Resp 16; Pulse Ox 99% ; me1 21:00 BP 108 / 57; Pulse 93; Resp 16; Pulse Ox 100% ; me1 22:00 BP 83 / 55; Pulse 83; Resp 16; Pulse Ox 100% ; me1 23:00 BP 102 / 63; Pulse 80; Resp 16; Pulse Ox 100% ; me1 23:30 BP 107 / 64; Pulse 96; Resp 14; Pulse Ox 100% ; me1 19:30 Body Mass Index 23.80 (64.86 kg, 165.1 cm) me1 19:30 Pain Scale: Adult [facility] ED Course: 19:24 Patient arrived in ED. jj6 19:24 Leonard Coombs MD is Attending Physician. rt 19:30 Adia Young, ARNULFO is Primary Nurse. me1 19:32 Triage completed. me1 19:32 Arm band placed on Patient placed in an exam room. me1 19:37 Patient has correct armband on for positive identification. Bed in low position. Call me1 light in reach. Side rails up X2. Provided Education on: POC. Verbalized understanding.. Client placed on continuous cardiac and pulse oximetry monitoring. NIBP monitoring applied. Pulse ox on. NIBP on. 19:37 No provider procedures requiring assistance completed. me1 19:57 Initial lab(s) drawn, by me, sent to lab. T\T\S collected, blood band applied to patient. me1 Inserted saline lock: 22 gauge in right antecubital area, using aseptic technique. 23:08 CBC with Diff Sent. 01/23 00:07 Jairo Nassar MD is Hospitalizing Provider. rt 03:51 Patient admitted, IV remains in place. al5 Administered Medications: 01/22 20:41 Drug: Lidocaine-Epinephrine Infiltration -1%: (1:100,000) 5 ml 20 ml Infiltration once; vt1 to bedside {Note: Administered by Dr Coombs.} Volume: 20 ml; Route: Infiltration; 21:25 Follow up: Response: No adverse reaction; Pain is decreased me1 20:56 Drug: HYDROcodone-acetaminophen PO 5 mg-325 mg 1 tabs PO once Route: PO; me1 20:59 Follow up: Response: No adverse reaction vt1 23:07 Drug: Ondansetron IVP 4 mg IVP once; over 2 minutes Route: IVP; Site: right antecubital;cg 23:36 Follow up: Response: No adverse reaction; Nausea is decreased me1 23:07 Drug: tranexamic acid IV 1000 mg IV at calculated rate once; IV once over 20 minutes cg Route: IV; Rate: calculated rate; Site: right antecubital; 23:34 Follow up: Response: No adverse reaction; IV Status: Completed infusion me1 23:08 Not Given (Physician Discretion; hold ): morphineor iv 4 mg IVP once over 4 mins cg Medication: 19:37 VIS not applicable for this client. me1 Outcome: 01/23 00:09 Decision to Hospitalize by Provider. rt 03:51 Admitted to ICU accompanied by nurse, via stretcher, room ICU 4, on monitor, with al5 chart, Report called to william 03:51 Condition: stable 03:51 Instructed on the need for admit, 03:52 Patient left the ED. al5 Signatures: Destinee Rabago, RN RN Kassandra Mercado jj6 Varsha Kitchen, RN RN Leonard Angelo MD MD rt Adia Young, RN RN me1 Chelsea Ennis RN RN al5
--- NOTE | 2025-01-23 00:09 | EDPHYS ---
Physician Documentation [facility] Name: Inocencia Wu Age: 69 yrs Sex: Female : 1955 Arrival Date: 01/22/2025 Time: 19:23 Bed 17 Private MD: ED Physician Leonard Coombs HPI: 01/22 19:58 This 69 yrs old Female presents to ER via EMS with complaints of Post Surgical rt Bleeding. 19:58 Patient had a midfoot amputation and debridement about 3 weeks ago. States that she rt woke up this morning, had a significant amount of bleeding from the wound. Denies other acute complaints at this time, symptoms are moderate in severity, no other aggravating alleviating factors.. Historical: - Allergies: 19:32 Sulfa (Sulfonamide Antibiotics); me1 - PMHx: 19:32 Hypercholesterolemia; Atrial fibrillation; Depressive disorder; Hypothyroidism; me1 Gastroesophageal reflux disease; Coronary atherosclerosis; - PSHx: 19:32 amputation of toes right foot; me1 - Immunization history:: Adult Immunizations up to date. - Infectious Disease History:: Denies. - Social history:: Smoking status: Patient denies any tobacco usage or history of. - Family history:: not pertinent. ROS: 19:58 Constitutional: Negative for fever, chills, and weight loss, Cardiovascular: Negative rt for chest pain, palpitations, and edema, Respiratory: Negative for shortness of breath, cough, wheezing, and pleuritic chest pain, Abdomen/GI: Negative for abdominal pain, nausea, vomiting, diarrhea, and constipation, Neuro: Negative for headache, weakness, numbness, tingling, and seizure, 19:58 MS/extremity: Positive for Bleeding wound, Exam: 19:58 Constitutional: This is a well developed, well nourished patient who is awake, alert, rt and in no acute distress. Head/Face: Normocephalic, atraumatic. Chest/axilla: Normal chest wall appearance and motion. Nontender with no deformity. No lesions are appreciated. Cardiovascular: Regular rate and rhythm with a normal S1 and S2. No gallops, murmurs, or rubs. Normal PMI, no JVD. No pulse deficits. Respiratory: Lungs have equal breath sounds bilaterally, clear to auscultation and percussion. No rales, rhonchi or wheezes noted. No increased work of breathing, no retractions or nasal flaring. Abdomen/GI: Soft, non-tender, with normal bowel sounds. No distension or tympany. No guarding or rebound. No evidence of tenderness throughout. 19:58 Musculoskeletal/extremity: Midfoot amputation noted to the right foot, at the middle portion of that wound, there appears to be a small blood vessel that is bleeding. Rest of the wound appears to be appropriate.. 20:57 Musculoskeletal/extremity: rt Vital Signs: 19:30 BP 104 / 60; Pulse 78; Resp 16; Temp 98.4; Pulse Ox 100% ; Weight 64.86 kg; Height 5 me1 ft. 5 in. ; Pain 10/10; 20:00 BP 114 / 63; Pulse 83; Resp 16; Pulse Ox 99% ; me1 21:00 BP 108 / 57; Pulse 93; Resp 16; Pulse Ox 100% ; me1 22:00 BP 83 / 55; Pulse 83; Resp 16; Pulse Ox 100% ; me1 23:00 BP 102 / 63; Pulse 80; Resp 16; Pulse Ox 100% ; me1 23:30 BP 107 / 64; Pulse 96; Resp 14; Pulse Ox 100% ; me1 19:30 Body Mass Index 23.80 (64.86 kg, 165.1 cm) me1 19:30 Pain Scale: Adult me1 MDM: 19:34 Medical Screening Exam initiated rt 01/23 00:48 Differential Diagnosis Postsurgical bleed, blood loss anemia. Data reviewed: vital rt signs, nurses notes, lab test result(s). Consideration of Admission/Observation Patient was admitted/placed on observation. Management of patient was discussed with the following: [employer]: Discussed with Dr. Santo, will consult on patient, recommends directed pressure with Surgicel. I considered the following discharge prescriptions or medication management in the emergency department Medications were administered in the Emergency Department. See MAR. Care significantly affected by the following chronic conditions: Atrial fibrillation. Counseling: I had a detailed discussion with the patient and/or guardian regarding the historical points, exam findings, and any diagnostic results supporting the discharge/admit diagnosis, lab results, the need for further work-up and treatment in the hospital. Response to treatment: the patient's symptoms have markedly improved after treatment. ED course: Attempted to tie [id number] around bleeding vessel, there is very poor tissue, would tear with any pressure, this is not amenable to suturing. Good hemostasis was obtained with direct pressure with Surgicel. Pressure dressing was placed, patient to be admitted for further care.. 01/22 19:43 Order name: CBC with Diff; Complete Time: 20:45 rt 01/22 19:43 Order name: CMP; Complete Time: 20:53 rt 01/22 19:43 Order name: Type And Screen rt 01/22 22:22 Order name: ABO/RH no charge; Complete Time: 22:25 EDMS 01/22 22:44 Order name: CBC with Diff; Complete Time: 23:39 rt 01/23 00:00 Order name: Packed RBCs (Additional Unit) EDMS 01/23 02:58 Order name: CBC with Automated Diff EDMS 01/23 02:58 Order name: CBC with Automated Diff EDMS 01/23 02:58 Order name: Comprehensive Metabolic Panel EDMS 01/23 02:58 Order name: Comprehensive Metabolic Panel EDMS 01/23 02:58 Order name: Protime (+INR) EDMS 01/23 02:58 Order name: Protime (+INR) EDMS 01/23 02:58 Order name: PTT, Activated Partial Thromb EDMS 01/23 02:58 Order name: PTT, Activated Partial Thromb EDMS 01/23 02:58 Order name: Troponin High Sensitivity EDMS 01/23 02:58 Order name: Troponin High Sensitivity EDMS 01/23 02:58 Order name: Troponin High Sensitivity EDAR 01/23 02:59 Order name: Ferritin EDMS 01/23 02:59 Order name: Iron EDMS 01/23 02:59 Order name: Retic Count EDMS 01/23 02:59 Order name: Vitamin B12 Level EDMS 01/23 03:01 Order name: Lactate w/ 2H reflex if indic. EDMS 01/23 02:58 Order name: CONS Physician Consult EDMS 01/22 20:03 Order name: Misc. Order: RECOLLECT TYPE AND SCREEN; Complete Time: 20:11 rv1 Administered Medications: 01/22 20:41 Drug: Lidocaine-Epinephrine Infiltration -1%: (1:100,000) 5 ml 20 ml Infiltration once; me1 to bedside {Note: Administered by Dr Coombs.} Volume: 20 ml; Route: Infiltration; 21:25 Follow up: Response: No adverse reaction; Pain is decreased me1 20:56 Drug: HYDROcodone-acetaminophen PO 5 mg-325 mg 1 tabs PO once Route: PO; me1 20:59 Follow up: Response: No adverse reaction me1 23:07 Drug: Ondansetron IVP 4 mg IVP once; over 2 minutes Route: IVP; Site: right antecubital;cg 23:36 Follow up: Response: No adverse reaction; Nausea is decreased me1 23:07 Drug: tranexamic acid IV 1000 mg IV at calculated rate once; IV once over 20 minutes cg Route: IV; Rate: calculated rate; Site: right antecubital; 23:34 Follow up: Response: No adverse reaction; IV Status: Completed infusion me1 23:08 Not Given (Physician Discretion; hold ): morphineor iv 4 mg IVP once over 4 mins cg Disposition Summary: 01/23/25 00:09 Hospitalization Ordered Notes: Hospitalization Status: Observation rt Provider: Jairo Nassar rt Condition: Fair rt Problem: new rt Symptoms: have improved rt Bed/Room Type: Standard rt Location: Intensive Care Unit(01/23/25 02:58) cg Room Assignment: 4-(01/23/25 02:58) cg Diagnosis - Postsurgical bleeding rt - Acute blood loss anemia rt Forms: - Medication Reconciliation Form rt - SBAR form rt - Leadership Thank You Letter rt Critical care time excluding procedures: 01/23 00:50 Critical care time: Bedside Care: 30 minutes, Consultation: 5 minutes. Total time: 35 rt minutes Signatures: Dispatcher [employer] Destinee Eduardo RN RN Leonard Coombs MD MD rt Zenaida Francis rv1 Adia Young RN RN me1 Corrections: (The following items were deleted from the chart) 01/22 19:44 19:44 CBC+H.LAB.BRZ ordered. EDMS EDMS 19:44 19:44 COMPREHENSIVE METABOLIC PANEL+C.LAB.BRZ ordered. EDMS EDMS 19:44 19:44 TYPE AND SCREEN+BB.LAB.BRZ ordered. EDMS EDMS 20:58 19:58 Musculoskeletal/extremity: Midfoot amputation noted to the left foot, at the rt middle portion of that wound, there appears to be a small blood vessel that is bleeding. Rest of the wound appears to be appropriate.. rt 22:44 22:44 CBC+H.LAB.BRZ ordered. EDMS EDMS 01/23 00:15 00:09 Telemetry/MedSurg (observation) rt rv1 00:15 00:09 rt rv1 01:03 00:15 [facility] ER HOLD rv1 cg 01:03 00:15 ERHOLD- rv1 cg 02:58 01:03 Telemetry/MedSurg (observation) cg cg 02:58 01:03 428 cg cg
--- NOTE | 2025-01-23 02:33 | P.HP ---
Certification for Inpatient Patient admitted to: Inpatient With expected LOS: >2 Midnights Patient will require the following post-hospital care: None Practitioner: I am a practitioner with admitting privileges, knowledge of patient current condition, hospital course, and medical plan of care. Services: Services provided to patient in accordance with Admission requirements found in Title 42 Section 412.3 of the Code of Federal Regulations Patient History Date of Service: 01/23/25 Reason for admission: Acute blood loss anemia; patient with active bleeding from revision of TMA History of Present Illness: Patient is a 69-year-old female who presents to the hospital with active bleeding from a debridement of her transmetatarsal amputation that was done on December 23. Patient has had extensive surgeries to salvage her foot but unfortunately patient has not really done well with caring for her foot. Patient was found to have extensive PAD and had attempt at revascularization done on October 16. Patient had an angiogram done of the bilateral lower extremities and patient had an angioplasty done of the right peroneal artery as well as a right anterior tibial angioplasty performed. Patient also had a distal right superficial femoral artery angioplasty and after the procedure patient had no residual stenosis. Had an angiogram of the left lower extremity as well which showed a posterior tibial occlusion proximally as well as the left peroneal and left anterior tibial multifocal stenosis. On October 22 patient underwent right great toe amputation as the toe was necrotic and nonsalvageable. Unfortunately, patient's wound was not healing well. Patient ended up having a transmetatarsal amputation on November 23, 2024. By December 23 the wound still was not healing well and decision was made to proceed with repair of the right peripheral arterial system. Patient had a right superficial femoral artery cutdown and primary repair of the superficial femoral artery. Patient also had balloon angioplasty of the tibioperoneal trunk and the posterior tibial artery. Patient had a right lower extremity deep venous arterialization performed with stenting of the right tibioperoneal trunk into the posterior tibial vein. Patient also had the right transmetatarsal amputation debrided at that time and it was debrided down to the bone. Patient ended up staying at [facility] till January 13. Patient was not wearing her wound VAC appropriately so they changed her wound care to wet-to-dry dressing changes. Home health nurses were caring for the wound but around January 17 they notified the physician that the wound was starting to look necrotic. Dr. Nader Wood, patient's vascular surgeon, has schedule an appointment for today. However, the patient started having bleeding from the wound site and she came into our emergency room for further evaluation. Patient was seen by the ER physician and he had a brief conversation with the patient and they spoke with the general surgeon on-call, Dr. Santo, and patient was deemed appropriate to be admitted to [facility] for further care as patient was hesitant on going back to [facility] because of all the intervention she has had to undergo. She looks to be a little lethargic and fatigued and she gets tearful at times when she talks about her wound care. As her hemoglobin is very low at 6.7, and the fact that she is on Eliquis and it appeared to be an arterial bleed that has stopped, plan is to admit the patient to the ICU for closer monitoring. I did talk to the patient about going back to [facility] but she did not really seem overly engaging to have a conversation regarding getting transferred back to the institution where she has had the wound cared for but she was uncertain. I do not know if she is in a clear frame of mind to have that discussion at this point. Will go ahead and transfuse her 2 units of packed red blood cells and will discuss with the surgical team regarding long-term plan of care. Patient's stump which involves her transmetatarsal revision is necrotic and she probably needs to have a below-knee amputation. Have discussed with patient regarding further plan of care and she is not wanting to be trasnferred. Patient took her Eliquis yesterday so the plan is to hold off any surgical intervention for the next 48 hours. Allergies sulfamethoxazole [From Bactrim] Allergy (Verified 01/23/25 04:13) Nausea/Vomiting trimethoprim [From Bactrim] Allergy (Verified 01/23/25 04:13) Nausea/Vomiting Home Medications: Acetaminophen 650 mg PO Q6H PRN 01/23/25 Amoxicillin/Potassium Clav [Amox-Clav 875-125 mg Tablet] 1 each PO BID 01/23/25 Apixaban [Eliquis] 5 mg PO BID 01/23/25 Aspirin Chewable [Aspirin Chewable*] 81 mg PO DAILY 01/23/25 Duloxetine [Cymbalta Dalayed Release Pellets] 30 mg PO DAILY 01/23/25 Hydrocodone Bit/Acetaminophen [Hydrocodon-Acetaminophen 5-325] 1 each PO TID 01/23/25 Levothyroxine [Synthroid] 50 mcg PO [id number] 01/23/25 Methotrexate Sodium [Methotrexate] 2.5 mg PO 15AC 01/23/25 Omeprazole [Prilosec] 40 mg PO DAILY 01/23/25 Polyethyl Gly 3350 [Glycolax] 17 gm PO DAILY 01/23/25 Rosuvastatin [Crestor] 10 mg PO DAILY 01/23/25 Tamsulosin [Flomax] 0.4 mg PO [id number] 01/23/25 Zinc Sulfate 50 mg PO TID 01/23/25 methocarbamoL [Methocarbamol] 500 mg PO TID 01/23/25 - Past Medical/Surgical History -: DM-2 -: HTN -: Gangrene -: Diabetic foot ulcer -: Hyperlipidemia -: RA -: Hyperthyroid -: Bunionectomy -: Right TKA -: Left TKA -: Finger amputation - Family History Father Family History: Reviewed- Non-Contributory - Social History Smoking Status: Former smoker Alcohol use: No CD- Drugs: No Review of Systems 10-point ROS is otherwise unremarkable Physical Examination - Vital Signs Temperature: 98 F Blood Pressure: 140/80 Pulse: 80 Respirations: 18 Pulse Ox (%): 95 - Physical Exam General: Alert, In no apparent distress, Oriented x2, Confused HEENT: Atraumatic, PERRLA, Mucous membr. moist/pink, EOMI, Sclerae nonicteric Neck: Supple, 2+ carotid pulse no bruit, No LAD, Without JVD or thyroid abnormality Respiratory: Clear to auscultation bilaterally, Normal air movement Cardiovascular: Regular rate/rhythm, Normal S1 S2, Systolic murmur Gastrointestinal: Normal bowel sounds, Soft and benign, Non-distended, No tenderness Musculoskeletal: No clubbing, No swelling, Erythema, Tenderness, Warmth, Other (Necrotic right foot stump) Integumentary: Tenderness/swelling, Erythema, Warmth, Cyanosis (Necrotic right foot stump) Neurological: Normal speech, Sensation intact, Cranial nerves 3-12 intact, Abnormal gait, Abnormal strength Lymphatics: No axilla or inguinal lymphadenopathy - Studies Laboratory Data (last 24 hrs) 01/22/25 01/22/25 01/22/25 23:10 19:54 19:54 WBC 10.70 9.40 Hgb 6.7 L 7.1 L Hct 20.5 L 21.6 L Plt Count 290 278 Sodium 139 Potassium 3.2 L BUN 8 Creatinine 0.66 Glucose 180 H Total Bilirubin 0.3 AST 19 ALT < 14 Alkaline Phosphatase 94 Assessment & Plan - Problems (Diagnosis) (1) Acute blood loss anemia Current Visit: Yes Status: Acute (2) Status post transmetatarsal amputation of right foot Current Visit: Yes Status: Acute (3) PAD (peripheral artery disease) Current Visit: Yes Status: Acute (4) DM2 (diabetes mellitus, type 2) Current Visit: Yes Status: Acute (5) HTN (hypertension) Current Visit: Yes Status: Acute (6) Hyperlipidemia Current Visit: Yes Status: Acute (7) Rheumatoid arthritis Current Visit: Yes Status: Acute (8) Hypothyroidism Current Visit: Yes Status: Acute - Plan Plan: 1. Acute blood loss anemia; this is an arterial bleed from patient's right transmetatarsal amputation stump which is necrotic. Bleeding was controlled in the ER and Surgicel and dressing placed. Eliquis on hold. General surgery was notified and at this time they were okay with excepting the patient to the facility and proceeding with surgical intervention as needed. Patient's hemoglobin is 6.7 will transfuse 2 units of packed red blood cells. Will monitor in the ICU setting overnight and as long as no active bleeding then we can probably downgrade as long as hemoglobin is stable 2. Necrotic right foot stump in a patient status post right TMA with revision; continue with IV antibiotics and pain control. N.p.o. after midnight on Thursday for possible BKA. Will need to hold off on Eliquis for 48 hours prior to surgery. 3. History of PAD status post angioplasty of the right lower extremity arterial system as mentioned in the HPI as well as patient with deep venous arterialization; continue with antiplatelet therapy and statin therapy at this time. Strict blood pressure control. 4. History of type 2 diabetes; strict blood sugar control 5. History of hypertension; resume antihypertensives 6. History of hypothyroidism; resume levothyroxine 7. Hypoalbuminemia; patient with severe malnutrition and protein deficit; monitor protein intake 8. History of rheumatoid arthritis; currently not on any immunosuppressants. Will need to monitor patient's RA 9. GI and DVT prophylaxis Discharge Plan: Usp Plan to discharge in: Greater than 2 days - Advance Directives Does patient have a Living Will: No Does patient have a Durable POA for Healthcare: No - Code Status/Comfort Care Code Status Assessed: Yes Code Status: Full Code Critical Care: Yes Time Spent Managing PTS Care (In Minutes): 50
[2025-01-23] MEDS: FENTANYL CITR 100 MCG/2 ML IV PRN ×2 (05:10→12:56)
[2025-01-23] MEDS: NA CHLORIDE 0.9% 250 ML ONE (05:13)
[2025-01-23] MEDS: NA CHLORIDE 0.9% 1,000 ML IV SCH (05:14)
[2025-01-23] MEDS: HYDROCODONE/APAP 10/325 TAB PO PRN (05:55)
[2025-01-23 06:51] LABS: Percent Reticulocyte Count 2.51 % (0.4-2.05); RBC Red Blood Cell Count 3.22 M/uL (3.86-4.86)
--- NOTE | 2025-01-23 07:20 | P.PN ---
Date of Service: 01/23/25 Subjective: pt seen on rounds this morning ongoing with pain dressing intact receiving blood transfusion, BP better Physical Exam: GEN: Alert, orientedx2, confused CV: Regular rate and rhythm, systolic murmur Pulm: Nonlabored respirations on room air, clear bilaterally ABD: soft, nontender, nondistended Integumentary: dressing in place Rosenberg POA from last admission, placed 12/23 Problem List: Acute blood loss anemia Necrotic R TMA stump Hx severe PVD s/p multiple interventions Urinary retention Hypertension Hyperlipidemia Hypothyroidism Rheumatoid Arthritis Hx Bilateral TKA On admission presents to ED after she started bleeding from the her right TMA wound site. EMS estimated ~500 ml of blood loss. Wound appears to be healing poorly with evidence of necrosis. Hx of extensive surgeries in attempts to salvage her foot. Timeline of recent Procedures below 10/16 - Vascular attempted revascularization; s/p angioplasty right peroneal artery, right anterior tibial, distal right superficial femoral artery Angiogram of the left lower extremity showed a posterior tibial occlusion proximally as well as the left peroneal and left anterior tibial multifocal stenosis 10/22 - Right great toe amputation 11/23 - Right TMA 12/23 - Right superficial femoral artery cutdown and primary repair of the superficial femoral artery. Balloon angioplasty of the tibioperoneal trunk and the posterior tibial artery Right lower extremity deep venous arterialization performed with stenting of the right tibioperoneal trunk into the posterior tibial vein s/p I&D of TMA debrided down to the bone. Was at [facility] until January 13. 01/17 - Home health nurses concerned wound is starting to look necrotic. Reportedly hasn't been using wound vac appropriately; She received wet-to-dry dressing changes instead. Admitted to ICU for close monitoring. Given tranexamic acid, pain meds in ED. hgb down to 6.7; 2 uPRBC ordered. repeat H&H post transfusion. Iron studies normal. Lactic acid normal. Trend troponins, monitor on telemetry. Empiric Zosyn, IV fluids, pain control. Dr. Santo, general surgeon consulted. Last took eliquis day before admission. Hold eliquis given bleed/anemia. Has rosenberg POA from last hospitalization d/t ?Post-op retention. Placed 12/23/24. Failed voiding trial last hospitalization and was told to f/u with urology as outpatient. confirm home meds tentative plan for OR - amputation tomorrow monitor for further bleeding / infxn VTE: hold eliquis given anemia Code: Full Dispo: Home pending cultures, surgical recs, hgb stable Time Spent Managing Pts Care (In Minutes): 55
[2025-01-23] MEDS: PIPER TAZO 3.375 GM in NA CHLORIDE 0.9% 100 ML IV SCH (07:31)
[2025-01-23] MEDS: ALBUMIN HUMAN 25% 100 ML IV SCH (07:31)
[2025-01-23 07:39] LABS: Ferritin 221.6 ng/mL (8-252); Troponin High Sensitivity 45.8 pg/mL (<58.9)
[2025-01-23 11:02] LABS: Absolute Basophils 0.1 K/uL (0-0.5); Absolute Eosinophils 0.2 K/uL (0-0.5); Absolute Lymphocytes (CBC) 2.3 K/uL (0.7-4.9); Absolute Neutrophil 8.4 K/uL (1.8-8.0); Basophils % 0.6 % (0-1.3); Eosinophils % 1.9 % (0-4.4); Hematocrit 27.6 % (36.0-45.0); Hemoglobin 9.4 g/dL (12.0-15.0); Lymphocytes % 18.9 % (15.3-44.8); MCH 28.1 pg (27.0-35.0); MCV 82.7 fL (80-100); MPV 7.3 fL (7.6-11.3); Monocytes % 8.4 % (3.3-12.3); Neutrophils % 70.2 % (41.7-73.7); Nucleated Red Blood Cells % 0.1 % (0-0); Platelets 241 thou/uL (152-406); RBC Red Blood Cell Count 3.33 M/uL (3.86-4.86); Red Cell Distribution Width 16.4 % (12.1-15.2)
[2025-01-24 05:11] LABS: Absolute Eosinophils 0.3 K/uL (0-0.5); Absolute Lymphocytes (CBC) 2.1 K/uL (0.7-4.9); Absolute Neutrophil 9.1 K/uL (1.8-8.0); Basophils % 0.4 % (0-1.3); Eosinophils % 2.7 % (0-4.4); Hematocrit 28.5 % (36.0-45.0); Hemoglobin 9.6 g/dL (12.0-15.0); Lymphocytes % 16.6 % (15.3-44.8); MCH 27.8 pg (27.0-35.0); MCHC 33.6 g/dL (32.0-36.0); MCV 82.6 fL (80-100); MPV 7.2 fL (7.6-11.3); Monocytes % 7.7 % (3.3-12.3); Neutrophils % 72.6 % (41.7-73.7); Nucleated Red Blood Cells % 0.1 % (0-0); Platelets 240 thou/uL (152-406); RBC Red Blood Cell Count 3.45 M/uL (3.86-4.86); Red Cell Distribution Width 16.5 % (12.1-15.2)
[2025-01-24 05:16] LABS: PTT, Activated Partial Thromb 36.9 SECONDS (27.2-37.4); Protime INR 1.62
[2025-01-24 05:32] LABS: AST/SGOT 12 U/L (15-37); Albumin 1.5 g/dL (3.4-5.0); Albumin/Globulin Ratio 0.3 (1.1-1.8); Alkaline Phosphatase 72 U/L (45-117); BUN Blood Urea Nitrogen 6 mg/dL (7-18); Bicarbonate 30 mEq/L (21-32); Bilirubin Total 0.6 mg/dL (0.2-1.0); Globulin 4.4 g/dL (2.3-3.5); Glomerular Filtration Rate 103 ml/min (=/>90); Glucose Level 101 mg/dL (74-106); Protein, Total 5.9 g/dL (6.4-8.2); Sodium Level 142 mEq/L (136-145)
[2025-01-24 05:39] LABS: ALT/SGPT < 14 U/L (13-56)
[2025-01-24] MEDS: NA CHLORIDE 0.9% 0 ML ONE (12:24)
--- NOTE | 2025-01-24 13:35 | P.PN ---
Subjective Date of Service: 01/24/25 Chief Complaint: Acute blood loss anemia; patient with active bleeding from revision of TMA Patient denies any new complain. No recorded fever. She is n.p.o. for surgery today Physical Examination - Vital Signs Temperature: 98.4 F Blood Pressure: 116/55 Pulse: 70 Respirations: 19 Pulse Ox (%): 95 Assessment And Plan - Plan Physical Exam: GEN: Alert, oriented x 2, interacting appropriately. CV: Regular rate and rhythm, systolic murmur Pulm: Nonlabored respirations on room air, clear bilaterally ABD: soft, nontender, nondistended Integumentary: Right foot amputation stump with necrotic tissue/dry gangrene at the end. Genitourinary:Russell catheter in place. Problem List: Acute blood loss anemia Necrotic R TMA stump Hx severe PVD s/p multiple interventions Urinary retention Hypertension Hyperlipidemia Hypothyroidism Rheumatoid Arthritis Hx Bilateral TKA Plan: With significant history of peripheral vascular disease status post multiple interventions. Patient is planned for limb amputation today. Continue IV antibiotics Analgesics as needed Hemoglobin is stable around since blood transfusion. No more active bleeding. Monitor H&H and transfuse as needed. Maintain Russell catheter. Follow-up with urology as outpatient for urinary retention. Eliquis and aspirin on hold. I suspect patient takes Eliquis for severe peripheral vascular disease. VTE: Eliquis is on hold due to anemia. Code: Full Dispo: Home
[2025-01-24] MEDS ORDERED: FENTANYL CITR 100 MCG/2 ML ONE ×2 (14:17→15:59)
[2025-01-24] MEDS ORDERED: LIDOCAINE 1% MPF 5 ML VIAL ONE (14:17)
[2025-01-24] MEDS ORDERED: propofoL 200 MG/20 ML VIAL IV ONE (14:17)
[2025-01-24] MEDS: NA CHLORIDE 0.9% 1,000 ML ONE ×2 (14:30→17:00)
[2025-01-24] MEDS ORDERED: LIDOCAINE 2% MPF 5 ML VIAL ONE (14:37)
[2025-01-24] MEDS ORDERED: KETAMINE HCL IN 0.9 % NACL 50 MG/5 ML SYRINGE IV ONE (14:37)
[2025-01-24] MEDS: HYDROMORPHONE HCL 1 MG/ML INJ ONE (14:39)
[2025-01-24] MEDS: DEXMEDETOMIDINE HCL 200 MCG/2 ML VIAL ONE (14:40)
[2025-01-24] MEDS: MAGNESIUM SULFATE 1 gm IVPB 1 GM/100 ML BAG IV ONE (14:40)
[2025-01-24] MEDS ORDERED: MIDAZOLAM HCL 2 MG/2 ML INJ ONE (14:57)
[2025-01-24] MEDS ORDERED: EPHEDRINE SULF 50 MG/ML VIAL ONE (15:38)
--- NOTE | 2025-01-24 15:45 | RAD REPORT ---
EXAMINATION: Tib Fib Right VIEWS: One view CLINICAL INDICATION: Female, 69 years old. SX, BKA COMPARISON: No prior exam. IMPRESSION: Single view. No acute fracture. Right knee arthroplasty. Vascular stent which extends from below the ankle joint on this view to the proximal tibial diaphysis. Degenerative changes at the ankle noted.
[2025-01-24] MEDS ORDERED: ONDANSETRON 4 MG/2 ML VIAL ONE (16:11)
[2025-01-24] MEDS ORDERED: dexAMETHasone 4 MG/ML VIAL ONE (16:11)
[2025-01-24] MEDS: LIDOCAINE HCL/EPINEPHRINE 20 ML MDV ONE (16:28)
[2025-01-24] MEDS ORDERED: Phenylephrine HCl 10 MG/ML 1 ML VIAL ONE (17:09)
--- NOTE | 2025-01-24 17:24 | P.OP ---
Preoperative diagnosis: RIGHT Lower Extremity Gangrene Postoperative diagnosis: RIGHT Lower Extremity Gangrene Primary procedure: RIGHT Below the Knee Amputation Secondary procedure: Debridement of RIGHT Thigh Chronic Wound Anesthesia: GETA + Local Estimated blood loss: 200cc Specimen: RIGHT Gangrenous Foot Findings: 7cm x 2cm x 2 cm right medial thigh necrotic wound, right foot gangr hoda Complications: None Drain(s): JOSE M drain (Hemovac) Transferred to: Recovery Room Condition: Good
--- NOTE | 2025-01-24 18:58 | CON ---
Date of Consultation: 01/23/2025 Brief Hpi: The patient is a 69-year-old female who presents the ER after having a transmetatarsal am putation on December 15 at [facility]. She states she has had multiple surgeries of this foot and multiple endovascular procedures from a vascular surgeon Dr. Wood who attempted to improve flow in this area. She has had recurrence of wound infections and multiple wound issues over the course of time and it g ot progressively worse. As such, she noticed the area started to ooze, have discoloration, and bleed ing started to emanate from the area, which is dark and black, and as such, she came to the emergency room with the above-stated complaints. Past Medical History: Significant for diabetes, hypertension, gangrene, diabetic foot ulcer, hyperli pidemia, rheumatoid arthritis, hypothyroidism. Past Surgical History: Includes bunionectomy, left TKA, right TKA, finger amputation, multiple debri dements and amputations including a transmetatarsal amputation of her right foot as described above. Allergies: TO BACTRIM. Home Medications: Include acetaminophen, Augmentin, Eliquis, aspirin, Cymbalta, [place], Synthroid, me thotrexate, Prilosec, Glycolax, Crestor, Flomax, zinc, methocarbamol. Social History: She has a positive tobacco use history. Denies alcohol. Denies recreational drug u se. Review of Systems: Ten-point review of systems other than HPI, denies. Physical Examination: General: At the time of my examination, she is awake, alert, and oriented. Psychiatric: She is appropriate and conversive, but sad and tearful during our discussion. HEENT: Head normocephalic. Sclerae anicteric. Mucous membranes are moist. Oropharynx clear. She has poor dentition. Neck: Supple without JVD. Chest: Normal to expansion and excursion. Cardiovascular: Regular rate and rhythm. Pulmonary: Clear to auscultation bilaterally. Abdomen: Soft. Extremities: Focused examination of the extremities. Her right foot has an obvious black dark gangr enous foot with ischemic changes which are very profound. There is no active bleeding at this time. All internal visualized tissues from a dehisced transmetatarsal amputation stump are all black and n ecrotic with a combination of wet and dry gangrene, predominant dry gangrene. There is no bleeding, discharge is predominantly serous. There is hyperemia extending up the foot. There is swelling, sev ere pain to palpation. She has ischemic changes and cellulitis extending to the mid foot area. Laboratory Data: White blood cell count of 12.5, hemoglobin is 9.6 over hematocrit of 28.5. She did refuse to receive a transfusion of 2 units of PRBCs prior in the ER. She had a platelet count of 24 0. Her PT 18.0, INR 1.62, PTT is 36.9. Sodium 142, potassium 3.0, chloride 109, carbon dioxide 30, BUN 6, creatinine 0.45, glucose is 101. Lactic acid is 1.4 on admission. She had no imaging perform ed. Assessment And Plan: This is a 69-year-old female who comes in with a dry gangrenous foot consistent with severe ischemia and peripheral arterial disease. 1. IV fluid hydration. 2. Antibiotic coverage. 3. Local wound care. 4. I have explained the risks, benefits, and alternatives of right [id number] amputation, includi ng but not limited to bleeding, infection, damage to surrounding tissue, need for further operative p rocedures, phantom limb pain, chronic pain, other unforeseen complication in the perioperative period including blood clots, heart attack, strokes, anesthesia, non-anesthesia related issues. In additio n, the patient will require ongoing vascular intervention and evaluation to ensure flow was optimized after the surgery. The patient and her family displayed understanding of above-stated plan, agrees to proceed as indicated. TAHIRA/MAGDALENO Voice ID: [id number] Report ID: [id number]
[2025-01-24] MEDS: HYDROCODONE/APAP 5/325 MG TAB PO PRN (19:10)
--- NOTE | 2025-01-25 03:38 | OP ---
Date of Procedure: 01/24/2025 Surgeon: Alexi Santo MD, Preoperative Diagnoses: Right lower extremity gangrene and right medial upper thigh chronic wound. Postoperative Diagnoses: Right lower extremity gangrene and right medial upper thigh chronic wound. Procedures Performed: 1. Right below the knee amputation. 2. Debridement of right thigh chronic wound. Anesthesia: General endotracheal plus local with 1% lidocaine with epinephrine. Estimated Blood Loss: Approximately 2 cc. Specimen: Right gangrenous foot and DKA specimen. Findings: Significant peripheral arterial disease to right lower extremity with ischemic necrotic ch anges to the entire foot extending up to the lower extremity. Stents obviously noted during procedur e at transection points of surgery. Additional right medial thigh necrotic wound, which was approxim ately 7 cm x 2 cm x 2 cm down through subcutaneous tissues overlying muscular fascia. Complications: None immediate. Drains: Hemovac and JOSE M drain placed in BKA site, brought out through medial exit site. Disposition: The patient was transferred to ICU in good condition. Procedure In Detail: After informed consent was obtained, patient was brought to the operating room, prepped and draped in the usual sterile fashion after adequate anesthesia was achieved. I inflated the tourniquet on the right lower extremity and demarcated the right lower extremity below the knee a mputation site approximately 3-4 cm below the tibial plateau. X-rays performed preoperatively showin g her hardware was far away from our proposed transection site from previous knee replacement. After the area was demarcated with a posterior gastrocnemius flap, I cut down through the anterior compart ments. Bright pulsatile arterial spurting blood was appreciated throughout the majority of the subcu taneous tissues and in the adipose planes. The tourniquet time was 28 minutes and as such, it was de flated as it was ineffective. Therefore, I continued the procedure by performing meticulous hemostas is. As I dissected down through the subcutaneous planes as arterial bleeding and venous bleeding was encountered, it was ligated using predominantly LigaSure device with good apposition and hemostasis. At this point, the flaps were created circumferentially around the subcutaneous plane. I then proc eeded to dissect through the anterior compartment to approach the tibia. I made a transection plane circumferentially on the tibia and opened up the anterior compartment using electrocautery and a mini mal amount of the LigaSure device circumferentially down. I dissected around and behind the bone and approached the interosseous membrane the vascular structures including the anterior tibia l vessels. After I encircled the tibia, I used a periosteal elevator to remove all periosteum back f rom proximal and distal transection point. I then proceeded to sweep back all the affected tissue an d placed a protecting laparotomy pad behind the tibia and transected the bone with an anterior bevel using a bone saw. At this point, arterial spurting was appreciated from the osseous surface and I pl aced a laparotomy pad on this and some bone wax at this point. I then approached the fibula coming i n from a lateral approach. Compartments were opened. Muscular planes were dissected free. Peronea l neurovascular bundle was isolated, , individually ligated using a combination of 3-0 silk ties on the arterial side with stick ties and followed up by an additional free tie of 0 silk. The p eroneal nerve was and injected with 1% lidocaine with epinephrine, pulled in the field, tra nsected and allowed to retract back. All nerve structures were treated similarly with being brought into the field, ultimately injected with 1% lidocaine, transected and allowed to retract back into th e muscular plane away from all cut surfaces. At this point, I circumferentially dissected around the fibula. The periosteal elevator was used to sweep back all tissue. The fibular transection plane w as approximately 1.5 cm above the tibia plane of transection. I in a similar fashion, passed a lapar otomy pad behind for protection and transected the bone at this point. I then placed a bone grasper, elevated the plane, and used the Octavia knife to dissect down posteriorly through the plane along th e bones to allow for transection of the specimen. The specimen was then sent off for pathologic exam ination. Arterial vessels were immediately clamped with hemostats along the gastrocnemius and soleus . Dissection planes were appreciated. I then the gastrocnemius and soleus tissues ultimat kahlil isolating the nerves and vascular bundles. At this point, the anterior and posterior tibialis we re treated similarly with individual stick ties as well as a free tie. Following that and large clip s were placed doubly on the structure beyond that. After I the soleus muscle, gastrocnemiu s, the soleus muscle was completely and sent off for pathologic examination after being lig ated with the LigaSure device with good hemostasis. The flap was then copiously irrigated. Based on the gastrocnemius tissue plane, I dissected somewhat free from the gastrocnemius and the distal aspe ct of the skin. I transected additional plane for optimal flap positioning along the Achilles tendon . This was sent off as additional specimen. The flap was in good orientation at this point, and the refore at this point, I irrigated the area copiously. Minimal hemostatic measures were required with electrocautery. The area was inspected once again for good hemostasis. I placed a 16-Slovak Hemova c smooth drain after a medial stab approach and secured to the skin with a 2-0 nylon suture. I then brought the tissue flap over the top based on the gastrocnemius flap. Achilles tendon was sewn to th e anterior tibial fascia circumferentially around protecting the bone after it was appropriately beve led, smoothed using a rasp and irrigated. Once this was in good orientation, I secured the tissue us ing deep dermal individual 3-0 Vicryl sutures and the skin was then closed with interrupted nancy c ircumferentially along for a tension-free type closure. The area was once again cleansed and a steri le dressing was placed over top. I then turned my attention to the medial thigh area, which was re-p repped and draped in the usual sterile fashion and anesthesia was maintained throughout. I opened th is area up, debrided out all necrotic tissue, which is predominantly subcutaneous fat with necrosis. This area was irrigated out copiously after all necrotic tissue was dissected using a combination of curette, sharp and blunt dissection with Metzenbaum scissors, Adson's. After the area was cleansed entirely, only good viable tissue was left behind. I then packed the wound with iodoform packing and a sterile dressing was placed over top. The patient tolerated the procedure without incident or complication and transferred to PACU in good condition. All counts were correct at the end of the case. TK/MODL Voice ID: [id number] Report ID: [id number]
[2025-01-25 05:47] LABS: Anion Gap 8.9 mEq/L (5.0-15.0); Potassium 2.9 mEq/L (3.5-5.1)
[2025-01-25 05:57] LABS: Absolute Lymphocytes (CBC) 1.4 K/uL (0.7-4.9); Absolute Monocytes 0.6 K/uL (0.1-1.3); Absolute Neutrophil 10.3 K/uL (1.8-8.0); Basophils % 0.1 % (0-1.3); Hematocrit 29.8 % (36.0-45.0); Hemoglobin 9.4 g/dL (12.0-15.0); Lymphocytes % 11.4 % (15.3-44.8); MCH 26.5 pg (27.0-35.0); MCHC 31.4 g/dL (32.0-36.0); MCV 84.4 fL (80-100); MPV 7.2 fL (7.6-11.3); Monocytes % 4.9 % (3.3-12.3); Neutrophils % 83.6 % (41.7-73.7); Nucleated Red Blood Cells % 0.1 % (0-0); Platelets 198 thou/uL (152-406); RBC Red Blood Cell Count 3.54 M/uL (3.86-4.86); Red Cell Distribution Width 17.1 % (12.1-15.2)
[2025-01-25] MEDS: POTASSIUM CL SA 10 MEQ TAB PO ONE ×2 (08:44→14:59)
[2025-01-25] MEDS: KCL 20 MEQ/100 mL IVPB 20 MEQ/100 ML BAG IV SCH (08:45)
--- NOTE | 2025-01-25 15:41 | P.PN ---
Subjective Date of Service: 01/25/25 Chief Complaint: Acute blood loss anemia; patient with active bleeding from revision of TMA Patient complaining of pain in the right upper thigh. No issues overnight. Patient is tolerating diet. Physical Examination - Vital Signs Temperature: 97.8 F Blood Pressure: 118/76 Pulse: 82 Respirations: 15 Pulse Ox (%): 100 Assessment And Plan - Plan Physical Exam: GEN: Alert, oriented x 2, interacting appropriately. CV: Regular rate and rhythm, systolic murmur Pulm: Nonlabored respirations on room air, clear bilaterally ABD: soft, nontender, nondistended Extremities: Right BKA Integumentary: Dressed right AKA wound. Genitourinary:Russell catheter in place. Problem List: Acute blood loss anemia Necrotic R TMA stump Hx severe PVD s/p multiple interventions Urinary retention Hypertension Hyperlipidemia Hypothyroidism Rheumatoid Arthritis Hx Bilateral TKA Plan: With significant history of peripheral vascular disease status post multiple interventions. Patient is planned for limb amputation today. Continue IV antibiotics Analgesics as needed Hemoglobin is stable around since blood transfusion. No more active bleeding. Monitor H&H and transfuse as needed. Maintain Russell catheter. Follow-up with urology as outpatient for urinary retention. Eliquis and aspirin on hold. I suspect patient takes Eliquis for severe peripheral vascular disease. 01/25 Status post right BKA Patient's request to change IV fentanyl to another pain medication. IV fentanyl changed to IV morphine Continue [place] Continue IV Zosyn. Monitor H&H to follow. Resume Eliquis and aspirin when okayed by Dr. Santo. VTE: Eliquis Code: Full Dispo: Home
[2025-01-25] MEDS ORDERED: D10W 125 ML IV PRN (17:02)
[2025-01-25] MEDS: INSULIN REGULAR (HUMAN) 100 UNIT/ML SQ SCH (17:02)
[2025-01-25] MEDS ORDERED: GLUCAGON 1 MG/VIAL IM PRN (17:02)
[2025-01-25] MEDS: MORPHINE 4 MG/ML SYR IV PRN (17:20)
[2025-01-25] MEDS: ZINC SULFATE 220 MG CAP PO SCH (20:29)
[2025-01-25] MEDS: methocarbamoL 500 MG TAB PO SCH (20:30)
[2025-01-25] MEDS: APIXABAN 5 MG TABLET PO SCH (20:30)
[2025-01-26] MEDS: LEVOTHYROXINE SOD 0.05 MG TABLET PO SCH (05:03)
[2025-01-26] MEDS: TAMSULOSIN 0.4 MG SR CAP PO SCH (05:03)
[2025-01-26 05:19] LABS: Absolute Eosinophils 0.4 K/uL (0-0.5); Absolute Monocytes 0.9 K/uL (0.1-1.3); Absolute Neutrophil 6.6 K/uL (1.8-8.0); Basophils % 0.4 % (0-1.3); Eosinophils % 3.4 % (0-4.4); Hematocrit 19.3 % (36.0-45.0); Hemoglobin 6.4 g/dL (12.0-15.0); Lymphocytes % 33.7 % (15.3-44.8); MCH 27.9 pg (27.0-35.0); MCV 84.5 fL (80-100); MPV 6.7 fL (7.6-11.3); Monocytes % 7.5 % (3.3-12.3); Nucleated Red Blood Cells % 0.1 % (0-0); Platelets 287 thou/uL (152-406); RBC Red Blood Cell Count 2.29 M/uL (3.86-4.86); Red Cell Distribution Width 17.4 % (12.1-15.2)
[2025-01-26 05:36] LABS: Anion Gap 8.4 mEq/L (5.0-15.0); Potassium 3.4 mEq/L (3.5-5.1)
[2025-01-26] MEDS: POTASSIUM 25 MEQ EFFERV TAB PO ONE (07:32)
[2025-01-26 08:26] LABS: Hematocrit 21.6 % (36.0-45.0); Hemoglobin 7.1 g/dL (12.0-15.0)
[2025-01-26] MEDS ORDERED: HOME MED 1 EA UNK (Omeprazole [Prilosec] 40 MG Capsule.Dr) PO SCH (09:00)
[2025-01-26] MEDS: POLYETHYL GLY 3350 17 GM/DOSE PO SCH (09:02)
[2025-01-26] MEDS: ROSUVASTATIN 10 MG TAB PO SCH (09:02)
[2025-01-26] MEDS: ASPIRIN 81 MG CHEWABLE TABLET PO SCH (09:03)
[2025-01-26] MEDS: Mupirocin NASAL 2 APPL/1 GM TUBE NAS SCH (09:04)
[2025-01-26] MEDS: PANTOPRAZOLE 40MG TABLET PO SCH (09:04)
[2025-01-26] MEDS: DULOXETINE 30 MG CAP PO SCH (09:04)
--- NOTE | 2025-01-26 12:49 | P.PN ---
Subjective Chief Complaint: Acute blood loss anemia; patient with active bleeding from revision of TMA Patient has no new complaint. No issues overnight. Patient states her pain is well-controlled. Physical Examination - Vital Signs Temperature: 97.8 F Blood Pressure: 118/76 Pulse: 82 Respirations: 15 Pulse Ox (%): 100 Assessment And Plan - Plan Physical Exam: GEN: Alert, oriented x 2, NAD CV: Regular rate and rhythm, systolic murmur Pulm: Clear to auscultation bilaterally ABD: soft, nontender, nondistended Extremities: Right BKA Integumentary: Dressed right AKA wound with some oozing. Genitourinary:Russell catheter in place. Problem List: Acute blood loss anemia Necrotic R TMA stump Hx severe PVD s/p multiple interventions Urinary retention Hypertension Hyperlipidemia Hypothyroidism Rheumatoid Arthritis Hx Bilateral TKA Plan: With significant history of peripheral vascular disease status post multiple interventions. Patient is planned for limb amputation today. Continue IV antibiotics Analgesics as needed Hemoglobin is stable around since blood transfusion. No more active bleeding. Monitor H&H and transfuse as needed. Maintain Russell catheter. Follow-up with urology as outpatient for urinary retention. Eliquis and aspirin on hold. I suspect patient takes Eliquis for severe peripheral vascular disease. 01/25 Status post right BKA Patient's request to change IV fentanyl to another pain medication. IV fentanyl changed to IV morphine Continue [place] Continue IV Zosyn. Monitor H&H to follow. Resume Eliquis and aspirin when okayed by Dr. Santo. Clinically stable Continue antibiotics Analgesics as needed Transfuse as needed for hemoglobin less than 7. Continue PT. Patient being evaluated for inpatient rehab. General surgery Dr. Santo to follow VTE: Eliquis Code: Full Dispo: Home
--- NOTE | 2025-01-26 15:50 | RAD REPORT ---
EXAMINATION: ONE VIEW CHEST XR CLINICAL INDICATION: PICC placement (left upper arm) TECHNIQUE: Frontal chest projection is submitted. Examination is limited by patient positioning and t echnique. COMPARISON: No prior exam. FINDINGS: Left-sided PICC line is tip in the SVC. Mild interstitial prominence seen bilaterally. The heart is m ildly enlarged in size.
[2025-01-26] MEDS: KCL 20 MEQ/100 mL IVPB 20 MEQ/100 ML BAG IV SCH (18:50)
[2025-01-27 05:26] VITALS: BMI 23.3
[2025-01-27 05:54] LABS: Absolute Basophils 0.1 K/uL (0-0.5); Absolute Eosinophils 0.5 K/uL (0-0.5); Absolute Monocytes 0.7 K/uL (0.1-1.3); Absolute Neutrophil 7.2 K/uL (1.8-8.0); Basophils % 0.9 % (0-1.3); Hematocrit 20.2 % (36.0-45.0); Hemoglobin 6.6 g/dL (12.0-15.0); Lymphocytes % 18.8 % (15.3-44.8); MCH 27.5 pg (27.0-35.0); MCHC 32.5 g/dL (32.0-36.0); MCV 84.4 fL (80-100); MPV 6.7 fL (7.6-11.3); Monocytes % 7.1 % (3.3-12.3); Neutrophils % 68.2 % (41.7-73.7); Nucleated Red Blood Cells % 0.1 % (0-0); Platelets 239 thou/uL (152-406); RBC Red Blood Cell Count 2.39 M/uL (3.86-4.86); Red Cell Distribution Width 16.8 % (12.1-15.2)
[2025-01-27 06:11] LABS: Anion Gap 7.4 mEq/L (5.0-15.0); Potassium 3.4 mEq/L (3.5-5.1)
--- NOTE | 2025-01-27 08:26 | RAD REPORT ---
EXAMINATION: Head Brain Wo Cont CLINICAL INDICATION: Female, 69 years old.ams TECHNIQUE: Axial CT images from the skull base to the vertex without intravenous contrast. Coronal an d sagittal reformatted images were created from the data set. One or more of the following dose reduction techniques were used: Automated exposure control, adjustment of the mA and/or kV according to patient size, and/or iterative reconstruction. Unless otherwise specified, incidental findings do not require dedicated imaging follow-up. [id number]. COMPARISON: No prior exam. FINDINGS: INTRACRANIAL: Age indeterminant left frontal lobe and left parietal cortical infarct. No hydrocephalu s. No mass effect or midline shift. Moderate chronic small vessel ischemic changes.Mild cerebral atrophy. Partially empty sella, typically normal variant VASCULATURE: No visualized abnormalities in the arteries or dural venous sinuses. SCALP/SKULL: No calvarial fracture identified. No acute soft tissue abnormality. SINUSES: The visualized paranasal sinuses are mostly clear. No significant mastoid fluid. IMPRESSION: Small left frontal and parietal cortical infarcts suspected which are age indeterminate, possibly acu te. Consider MRI for further evaluation.
[2025-01-27] MEDS: APIXABAN 5 MG TABLET PO SCH (10:02)
[2025-01-27] MEDS: NA CHLORIDE 0.9% 100 ML ONE (10:20)
--- NOTE | 2025-01-27 14:17 | P.PN ---
Subjective Date of Service: 01/27/25 Chief Complaint: Acute blood loss anemia; patient with active bleeding from revision of TMA Patient is a bit confused today. No issues overnight. No reported agitation. Hemoglobin dropped to 6.6. Physical Examination - Vital Signs Temperature: 97.8 F Blood Pressure: 126/66 Pulse: 71 Respirations: 18 Pulse Ox (%): 98 Assessment And Plan - Plan Physical Exam: GEN: Alert, oriented x 1, NAD CV: Regular rate and rhythm, systolic murmur Pulm: Clear to auscultation bilaterally ABD: soft, nontender, nondistended Extremities: Right BKA Integumentary: Dressed right AKA wound with some oozing. Genitourinary: Russell catheter in place. Problem List: Acute blood loss anemia Necrotic R TMA stump Hx severe PVD s/p multiple interventions Urinary retention Hypertension Hyperlipidemia Hypothyroidism Rheumatoid Arthritis Hx Bilateral TKA Plan: With significant history of peripheral vascular disease status post multiple interventions. Patient is planned for limb amputation today. Continue IV antibiotics Analgesics as needed Hemoglobin is stable around since blood transfusion. No more active bleeding. Monitor H&H and transfuse as needed. Maintain Russell catheter. Follow-up with urology as outpatient for urinary retention. Eliquis and aspirin on hold. I suspect patient takes Eliquis for severe peripheral vascular disease. 01/25 Status post right BKA Patient's request to change IV fentanyl to another pain medication. IV fentanyl changed to IV morphine Continue [place] Continue IV Zosyn. Monitor H&H to follow. Resume Eliquis and aspirin when okayed by Dr. Santo. Clinically stable Continue antibiotics Analgesics as needed Transfuse as needed for hemoglobin less than 7. Continue PT. Patient being evaluated for inpatient rehab. General surgery Dr. Santo to follow 01/27 CT head done today shows age indeterminate small left frontal and parietal infarcts. MRI of the brain ordered to further evaluate for acute CVA. Transfuse 1 unit PRBC for hemoglobin less than 7. Continue PT Analgesics as needed Patient is being evaluated for inpatient rehab. Insurance authorization is pending Dr. Roberson have input appreciated. VTE: Eliquis Code: Full Dispo: Home
[2025-01-27 16:04] LABS: Hemoglobin 8.5 g/dL (12.0-15.0)
--- NOTE | 2025-01-27 18:15 | RAD REPORT ---
EXAMINATION: MRI BRAIN WITHOUT AND WITH CONTRAST CLINICAL INDICATION: Acute CVA TECHNIQUE: Multiplanar multisequence MR images of the brain were obtained without and with cc MultiHance admi nistered intravenously. COMPARISON: January 27, [address] Mild to moderate abnormal signal within periventricular, deep and subcortical white matter probably i schemic changes secondary to small vessel disease Diffusion weighted/ADC mapping images demonstrate a 2 cm acute infarct left frontal lobe. T1-weighted sequences demonstrate a 1.1 cm area of increased signal with a low signal periphery left frontal lobe. Ventricles are normal caliber No extra-axial fluid collection No fluid within the visualized sinuses/mastoids. IMPRESSION: 2 cm acute infarction left frontal lobe 1.1 cm area of increased signal left frontal lobe may represent a cavernous angioma with subacute blo od. Unenhanced head CT recommended for further evaluation The exam was discussed with Dr. Worley 5:19 PM January 27, 2025
--- NOTE | 2025-01-27 18:18 | RAD REPORT ---
EXAM: CT brain without contrast HISTORY: Intracerebral bleed. COMPARISON: CT and MRI January 27, 2025 TECHNIQUE: Multiple contiguous axial images were obtained and a CT of the brain without contrast.. Sagittal and coronal reconstruction performed. Automated exposure control, adjustment of the mA and/or kV according to patient size, and/or iterative reconstruction. Unless otherwise specified, incidental f indings do not require dedicated imaging follow-up FINDINGS: 1.1 cm relatively low density area left frontal lobe Hounsfield unit 14. This corresponds to the area of increased signal on T1-weighted sequences MRI brain. IMPRESSION: 1.1 cm relatively low-density area left frontal lobe probably represents a cavernous angioma with sub acute blood. Follow-up PET/CT january recommended. Examination was discussed with
[2025-01-27] MEDS: [UNRECOGNIZED DRUG - OTHER] IV ONE (19:15)
--- NOTE | 2025-01-27 19:42 | P.PN ---
Date of Service: 01/27/25 I was notified by radiology Dr. Teresa about patient MRI of the brain showing 2 cm acute infarction left frontal lobe and 1.1 cm area of increased signal left frontal lobe may represent a cavernous angioma with subacute blood. I also discussed the MRI of the brain results with neurology Dr. Stuart. Dr. Teresa recommended repeat CT head without contrast urgently, concurred by Dr. Stuart. Repeat CT head without contrast ordered immediately, Dr. Teresa called and informed me that repeat CT head does not show any acute bleed as indicated on the MRI of the brain. Repeat head CT result: 1.1 cm relatively low density area left frontal lobe Hounsfield unit 14. This corresponds to the area of increased signal on T1-weighted sequences MRI brain. IMPRESSION: 1.1 cm relatively low- density area left frontal lobe probably represents a cavernous angioma with subacute blood. Follow-up PET/CT january recommended. Patient received 2 doses of Eliquis 5 mg yesterday and 1 dose this morning. Eliquis held. Imaging result discussed with neurology Dr. Stuart who recommend immediate reversal of the Eliquis with low Andaxenet byron and transfer to [facility] for monitoring and further management by neurosurgery in the neuro ICU. Patient seen and evaluated. She denies any headache, no focal neurologic sign or symptoms, no visual disturbance, however she stated she feels drowsy. Last dose of morphine and Robaxin was today around 14:41. Her vitals are stable. Andaxenet byron ordered. May substitute with Kcentra if not available in this hospital. Transfer to [facility] initiated and waiting for response. I called patient's daughter Layne Vazquez and updated her on the current i maging findings and clinical plan. Layne voiced understanding and plans to visit melissa.
[2025-01-27] MEDS: PROTHROMBIN COMPLEX CONCENTRATE (HUMAN) 500 UNIT VIAL IV ONE (21:40)
[2025-01-28 05:12] LABS: Absolute Basophils 0.1 K/uL (0-0.5); Absolute Eosinophils 0.4 K/uL (0-0.5); Absolute Lymphocytes (CBC) 1.6 K/uL (0.7-4.9); Absolute Monocytes 0.7 K/uL (0.1-1.3); Absolute Neutrophil 5.5 K/uL (1.8-8.0); Basophils % 0.6 % (0-1.3); Eosinophils % 4.8 % (0-4.4); Hematocrit 23.9 % (36.0-45.0); Hemoglobin 8.1 g/dL (12.0-15.0); Lymphocytes % 19.7 % (15.3-44.8); MCH 27.8 pg (27.0-35.0); MCHC 33.7 g/dL (32.0-36.0); MCV 82.6 fL (80-100); MPV 6.7 fL (7.6-11.3); Monocytes % 8.5 % (3.3-12.3); Neutrophils % 66.4 % (41.7-73.7); Platelets 191 thou/uL (152-406); Red Cell Distribution Width 17.1 % (12.1-15.2)
[2025-01-28 05:34] LABS: Anion Gap 9.8 mEq/L (5.0-15.0); Bicarbonate 24 mEq/L (21-32); Glomerular Filtration Rate 108 ml/min (=/>90); Glucose Level 87 mg/dL (74-106); Potassium 2.8 mEq/L (3.5-5.1); Sodium Level 143 mEq/L (136-145)
[2025-01-28 05:37] LABS: BUN Blood Urea Nitrogen < 3 mg/dL (7-18)
[2025-01-28] MEDS: KCL 20 MEQ/100 mL IVPB 20 MEQ/100 ML BAG IV SCH (08:05)
--- NOTE | 2025-01-28 08:30 | RAD REPORT ---
EXAM: CT Head Brain Wo Cont HISTORY: Follow up hemangioma with bleed on MRI brain COMPARISON: Head CT and MRI brain 02-19 TECHNIQUE: Multiple contiguous axial images were obtained for a CT of the brain without contrast. Sag ittal and coronal reformats were performed. One or more of the following dose reduction techniques were used: Automated exposure control, adjus tment of the mA and kV according to patient size, and iterative reconstruction. Unless otherwise specified, incidental findings do not require dedicated imaging follow-up. FINDINGS: No evidence of hydrocephalus, intracranial hemorrhage, or extra-axial fluid collection. Stable left frontal cortical/subcortical region of hypoattenuation, corresponding to known infarct. S table small focus of hypoattenuation within the adjacent subcortical white matter, series 201 image 26. Appearance is stable compared to the prior CT with no hyperdense hemorrhagic component. Moderate brain atrophy and other nonspecific moderate periventricular and deep white matter hypodensi ties are stable, most suggestive of chronic microvascular ischemic changes . The calvarium is intact. The visualized paranasal sinuses and mastoid air cells are essentially clear . IMPRESSION: Stable left frontal subcortical focus of hypoattenuation, corresponding to focus of T1 hyperintense h emorrhage on the prior MRI, with no hyperdense component on CT today, compatible with stable late subacute small parenchymal hemorrhage. Stable left frontal cortical/subcortical hypoattenuation compatible with known infarct. No other acute findings.
[2025-01-28] MEDS: ALPRAZOLAM 0.25 MG TABLET PO ONE (11:22)
--- NOTE | 2025-01-28 12:28 | P.PN ---
Subjective Date of Service: 01/28/25 Chief Complaint: Acute blood loss anemia; patient with active bleeding from revision of TMA No major changes from yesterday. Patient denies any headache, no focal weakness. She is interactive, no agitation No issues overnight. Physical Examination - Vital Signs Temperature: 98.1 F Blood Pressure: 124/67 Pulse: 76 Respirations: 11 Pulse Ox (%): 96 Assessment And Plan - Plan Physical Exam: GEN: Alert, oriented x 1, NAD CV: Regular rate and rhythm, systolic murmur Pulm: Clear to auscultation bilaterally ABD: soft, nontender, nondistended Extremities: Right BKA Integumentary: Dressed right AKA wound with some oozing. Genitourinary: Russell catheter in place. Problem List: Acute blood loss anemia Necrotic R TMA stump Hx severe PVD s/p multiple interventions Urinary retention Hypertension Hyperlipidemia Hypothyroidism Rheumatoid Arthritis Hx Bilateral TKA Plan: Acute blood loss anemia Status post 3 units PRBC transfusion Posttransfusion hemoglobin is around 8. Continue to monitor H&H and transfuse as needed Necrotic right TMA stump status post BKA History of severe peripheral vascular disease status post multiple interventions Hyperlipidemia Status post BKA by Dr. Santo Clean wound Patient deemed stable for discharge per surgery Daily wound care. Discontinue antibiotics. Continue statin Analgesics as needed Continue PT Patient is being evaluated for inpatient rehab. 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 Eliquis reversed with Kcentra. Repeat CT head 12 hours spot shows stable lesion Case discussed with neurology Dr. Stuart. Eliquis and aspirin on hold per Dr. Stuart recommendation. Continue statin Neurochecks. Dr. Stuart to follow. Hypothyroidism Essential hypertension Permissive hypertension Continue home dose Synthroid Check TSH. Urinary retention Russell catheter is in place Follow-up with urology as outpatient. VTE: SCD Code: Full Dispo: Inpatient rehab.
[2025-01-29 05:01] LABS: Absolute Eosinophils 0.4 K/uL (0-0.5); Absolute Lymphocytes (CBC) 1.5 K/uL (0.7-4.9); Absolute Monocytes 0.8 K/uL (0.1-1.3); Absolute Neutrophil 6.5 K/uL (1.8-8.0); Basophils % 0.5 % (0-1.3); Eosinophils % 4.2 % (0-4.4); Hematocrit 24.5 % (36.0-45.0); Hemoglobin 8.3 g/dL (12.0-15.0); Lymphocytes % 16.6 % (15.3-44.8); MCHC 33.8 g/dL (32.0-36.0); MCV 82.9 fL (80-100); MPV 6.8 fL (7.6-11.3); Monocytes % 8.8 % (3.3-12.3); Neutrophils % 69.9 % (41.7-73.7); Nucleated Red Blood Cells % 0.1 % (0-0); Platelets 181 thou/uL (152-406); RBC Red Blood Cell Count 2.96 M/uL (3.86-4.86); Red Cell Distribution Width 17.4 % (12.1-15.2)
[2025-01-29 05:14] LABS: Anion Gap 9.1 mEq/L (5.0-15.0); Bicarbonate 24 mEq/L (21-32); Glomerular Filtration Rate 116 ml/min (=/>90); Glucose Level 88 mg/dL (74-106); Potassium 3.1 mEq/L (3.5-5.1); Sodium Level 142 mEq/L (136-145)
[2025-01-29 05:21] LABS: BUN Blood Urea Nitrogen < 3 mg/dL (7-18)
[2025-01-29] MEDS: KCL 20 MEQ/100 mL IVPB 20 MEQ/100 ML BAG IV SCH ×2 (06:05→18:00)
--- NOTE | 2025-01-29 11:04 | P.PN ---
Subjective Date of Service: 01/29/25 Chief Complaint: Acute blood loss anemia; patient with active bleeding from revision of TMA Subjective: Improving (Patient continued to improve with respect to the right BKA site however she has noted increased discoloration of the middle toe of the left foot.) Physical Examination - Vital Signs Temperature: 97.8 F Blood Pressure: 116/68 Pulse: 80 Respirations: 14 Pulse Ox (%): 98 - Physical Exam General: Alert, In no apparent distress, Cooperative Musculoskeletal: Other (Right BKA site is clean and dry with nancy in place flaps are viable no ischemic changes. No infection. Left middle toe tip has some ischemic changes discoloration, no infection.) Assessment And Plan - Current Problems (Diagnosis) (1) PAD (peripheral artery disease) Current Visit: Yes Status: Acute Plan: Patient is a 69-year-old woman who presented with severe peripheral arterial disease ultimately had a below the knee amputation on the right. - Continue wound care of right BKA sites with anticipation of removal of nancy in 14 days after surgery. - Continue wrap elevation of BKA site. - Patient had CVA as evident on CT and MRI of brain. Recommendations and treatment per Dr. Stuart/Dr. Lynch - Third toe of left foot appears minimally ischemic at the tip -recommend ultrasound of left arterial system. - Mupirocin wrap and elevate,separation of toes. - Continue PT for transfer and eventual planning for ambulation when cleared surgically.
--- NOTE | 2025-01-29 12:22 | P.PN ---
Subjective Date of Service: 01/29/25 Chief Complaint: Acute blood loss anemia; patient with active bleeding from revision of TMA Patient is more awake and alert today. Patient denies any headache, no focal weakness. No issues overnight. She is tolerating a diet. Physical Examination - Vital Signs Temperature: 98.0 F Blood Pressure: 102/84 Pulse: 98 Respirations: 18 Pulse Ox (%): 98 Assessment And Plan - Plan Physical Exam: GEN: Alert, oriented x 3, NAD CV: Regular rate and rhythm, systolic murmur Pulm: Clear to auscultation bilaterally ABD: soft, nontender, nondistended Extremities: Right BKA Integumentary: Dressed right AKA wound with some oozing. Neurology: No focal motor deficit, no facial deviation. Genitourinary: Russell catheter in place. Problem List: Acute blood loss anemia Necrotic R TMA stump Hx severe PVD s/p multiple interventions Urinary retention Hypertension Hyperlipidemia Hypothyroidism Rheumatoid Arthritis Hx Bilateral TKA Plan: Acute blood loss anemia Status post 3 units PRBC transfusion Posttransfusion hemoglobin is around 8. Continue to monitor H&H and transfuse as needed 01/29 Hemoglobin has been stable around 8. Continue to monitor CBC. Necrotic right TMA stump status post BKA History of severe peripheral vascular disease status post multiple interventions Hyperlipidemia Status post BKA by Dr. Santo Clean wound Patient deemed stable for discharge per surgery Daily wound care. Discontinue antibiotics. Continue statin Analgesics as needed Continue PT Patient is being evaluated for inpatient rehab. Insurance authorization is pending 01/[address] Santo cleared patient for discharge. Patient slated for inpatient rehab pending insurance authorization Acute CVA Suspected cavernous hemangioma with subacute bleed. Eliquis reversed with Kcentra. Repeat CT head 12 hours spot shows stable lesion Case discussed with neurology Dr. Stuart. Eliquis and aspirin on hold per Dr. Stuart recommendation. Continue statin Neurochecks. Dr. Stuart to follow. 01/29 Patient is more awake and alert today. She may need repeat CT within 5 days to assess for improvement in the suspected hemorrhage. Continue statin Continue to hold aspirin. Apparently patient has been on Eliquis for severe peripheral vascular disease Continue IV NS Hypothyroidism Essential hypertension Permissive hypertension Continue home dose Synthroid Check TSH. 01/29 Patient has been normotensive. Continue current dose Synthroid Urinary retention Russell catheter is in place Follow-up with urology as outpatient. VTE: SCD Code: Full Dispo: Inpatient rehab.
--- NOTE | 2025-01-29 12:31 | RAD REPORT ---
EXAMINATION:Lower Extremity Artery Uni Ltd CLINICAL INDICATION: Female, 69 years old. LEFT 3rd toe ischemia TECHNIQUE: Arterial duplex ultrasound was performed of the left lower extremity with real-time, color -flow, and spectral wave Doppler evaluation. Ankle brachial indices were not performed. COMPARISON: No prior exam. FINDINGS: Moderate plaque throughout the evaluated arterial system. Monophasic waveforms are seen throughout the evaluated left lower extremity arterial system, to the l evel of the dorsalis pedis artery. No other suspicious findings. IMPRESSION: Diffuse left lower extremity monophasic waveform suggests moderate inflow disease. No complete occlus ion evident. Left posterior tibial artery suboptimally assessed due to the heavy plaquing.
[2025-01-29 16:15] LABS: Specific Gravity 1.013 (1.005-1.030); Sqamous Epithelial None Seen /HPF (None Seen); Urine Bacteria None Seen /HPF (<20); Urine Bilirubin NEGATIVE (Negative); Urine Blood 1+ (Negative); Urine Clarity Turbid (Clear); Urine Color Light-Yellow (Yellow); Urine Crystals Unidentified Few /HPF (None Seen); Urine Glucose NEGATIVE (Negative); Urine Ketones NEGATIVE (Negative); Urine Micro Reflex YN NO BILL MICROSCOPIC; Urine Nitrite NEGATIVE (Negative); Urine Protein TRACE (Negative); Urine Urobilinogen Normal (Normal); Urine WBC <5 /HPF (<5); Urine Yeast (Budding) Moderate /HPF (None Seen)
[2025-01-29] MEDS: ONDANSETRON 4 MG/2 ML VIAL IV PRN (21:56)
[2025-01-30 05:11] LABS: Absolute Basophils 0.1 K/uL (0-0.5); Absolute Eosinophils 0.5 K/uL (0-0.5); Absolute Lymphocytes (CBC) 1.7 K/uL (0.7-4.9); Absolute Monocytes 0.9 K/uL (0.1-1.3); Absolute Neutrophil 6.7 K/uL (1.8-8.0); Basophils % 0.5 % (0-1.3); Hematocrit 24.5 % (36.0-45.0); Hemoglobin 7.9 g/dL (12.0-15.0); Lymphocytes % 17.5 % (15.3-44.8); MCH 27.1 pg (27.0-35.0); MCHC 32.3 g/dL (32.0-36.0); MCV 83.8 fL (80-100); MPV 6.8 fL (7.6-11.3); Monocytes % 9.1 % (3.3-12.3); Neutrophils % 67.9 % (41.7-73.7); Platelets 206 thou/uL (152-406); RBC Red Blood Cell Count 2.92 M/uL (3.86-4.86); Red Cell Distribution Width 17.4 % (12.1-15.2)
[2025-01-30 05:39] LABS: Anion Gap 6.7 mEq/L (5.0-15.0); Potassium 3.7 mEq/L (3.5-5.1)
[2025-01-30 05:42] LABS: Thyroid Stimulating Hormone 4.6 uIU/mL (0.358-3.740)
[2025-01-30] MEDS: KCL 20 MEQ/100 mL IVPB 20 MEQ/100 ML BAG IV SCH (06:26)
--- NOTE | 2025-01-30 10:59 | P.PN ---
Subjective Date of Service: 01/30/25 Chief Complaint: Acute blood loss anemia; patient with active bleeding from revision of TMA Patient has no new complaint. She was seen eating her breakfast by herself No issues overnight. She denies any pain. Physical Examination - Vital Signs Temperature: 97.1 F Blood Pressure: 114/65 Pulse: 79 Respirations: 16 Pulse Ox (%): 97 Assessment And Plan - Plan Physical Exam: GEN: Alert, oriented x 3, NAD CV: Regular rate and rhythm, systolic murmur Pulm: Clear to auscultation bilaterally ABD: soft, nontender, nondistended Extremities: Right BKA Integumentary: Right BKA wound with clean dressing Neurology: No focal motor deficit, no facial deviation. Genitourinary: Russell catheter in place. Problem List: Acute blood loss anemia Necrotic R TMA stump Hx severe PVD s/p multiple interventions Urinary retention Hypertension Hyperlipidemia Hypothyroidism Rheumatoid Arthritis Hx Bilateral TKA Plan: Acute blood loss anemia Status post 3 units PRBC transfusion Posttransfusion hemoglobin is around 8. Continue to monitor H&H and transfuse as needed 01/29 Hemoglobin has been stable around 8. Continue to monitor CBC. 01/30 Hemoglobin is relatively stable. Continue to monitor H&H and transfuse as needed for hemoglobin less than 7. Necrotic right TMA stump status post BKA History of severe peripheral vascular disease status post multiple interventions Hyperlipidemia Status post BKA by Dr. Santo Clean wound Patient deemed stable for discharge per surgery Daily wound care. Discontinue antibiotics. Continue statin Analgesics as needed Continue PT Patient is being evaluated for inpatient rehab. Insurance authorization is pending 01/[address] Santo cleared patient for discharge. Patient slated for inpatient rehab pending insurance authorization. 01/30 Insurance denied acute rehab at the moment but they are requesting for an updated PT note to confirm patient is participating in progression before approval. Acute CVA Suspected cavernous hemangioma with subacute bleed. Eliquis reversed with Kcentra. Repeat CT head 12 hours spot shows stable lesion Case discussed with neurology Dr. Stuart. Eliquis and aspirin on hold per Dr. Stuart recommendation. Continue statin Neurochecks. Dr. Stuart to follow. 01/29 Patient is more awake and alert today. She may need repeat CT within 5 days to assess for improvement in the suspected hemorrhage. Continue statin Continue to hold aspirin. Apparently patient has been on Eliquis for severe peripheral vascular disease Continue IV NS 01/30 Patient currently has no neurologic symptoms or deficits. She remained awake and alert. Continue to hold aspirin Eliquis is on hold Continue IV NS Neurology consulted. Hypothyroidism Essential hypertension Permissive hypertension Continue home dose Synthroid Check TSH. 01/29 Patient has been normotensive. Continue current dose Synthroid 01/30 TSH and free T4 mildly elevated which are likely reactive. Continue current dose Synthroid. Urinary retention Russell catheter is in place Follow-up with urology as outpatient. VTE: SCD Code: Full Dispo: Inpatient rehab.
[2025-01-31 05:16] LABS: Anion Gap 8.5 mEq/L (5.0-15.0); BUN Blood Urea Nitrogen 3 mg/dL (7-18); Bicarbonate 26 mEq/L (21-32); Glomerular Filtration Rate 118 ml/min (=/>90); Glucose Level 83 mg/dL (74-106); Potassium 3.5 mEq/L (3.5-5.1); Sodium Level 141 mEq/L (136-145)
[2025-01-31] MEDS: KCL 20 MEQ/100 mL IVPB 20 MEQ/100 ML BAG IV ONE (06:11)
[2025-01-31] MEDS: COLLAGENASE 30 GM OINTMENT TOP SCH (09:00)
--- NOTE | 2025-01-31 10:36 | P.PN ---
Date of Service: 01/31/25 Subjective: no events overnight NPO this morning per surgery for possible OR family updated at bedside Mentation ~same afebrile Physical Exam: GEN: Alert, orientedx2, confused CV: Regular rate and rhythm, systolic murmur Pulm: Nonlabored respirations on room air, clear bilaterally ABD: soft, nontender, nondistended Integumentary: Right BKA with dressing in place c/d/i Neuro: No focal motor deficit, no facial deviation. Rosenberg POA from last admission, placed 12/23 Problem List: Acute blood loss anemia Necrotic right TMA stump status post BKA (01/24) Acute CVA Suspected cavernous hemangioma with subacute bleed. Hx severe PVD s/p multiple interventions Urinary retention Hypertension Hyperlipidemia Hypothyroidism Rheumatoid Arthritis Hx Bilateral TKA Acute blood loss anemia Necrotic right TMA stump status post BKA (01/24) Hx severe PVD s/p multiple interventions On admission presents to ED after she started bleeding from the her right TMA wound site. EMS estimated ~500 ml of blood loss. Wound appears to be healing poorly with evidence of necrosis. Hx of extensive surgeries in attempts to salvage her foot. Admitted to ICU for close monitoring. Given tranexamic acid, pain meds in ED. hgb down to 6.7; s/p 2 uPRBC Iron studies normal. Lactic acid normal. 01/24 - s/p right BKA with Dr. Santo Will need to get nancy removed 2 weeks after day of surgery per Dr. Santo Empiric Zosyn, IV fluids, pain control. Eliquis, aspirin held for surgery Pain control 01/26 - Hip Pain improving. Family looking into inpatient rehab facilities Hgb down to 6.6; s/p 1uPRBC. Repeat hgb up to 8.5 01/27 - Patient confused today. CT/Brain showed acute left frontal lobe infarct, suspected hemangioma 01/29 - Patient has increased discoloration of the middle toe of the left foot. Third toe of left foot concerning for mild ischemia at the tip Dr. Santo recommended Doppler u/s which noted Diffuse left lower extremity monophasic waveform suggests moderate inflow disease. No complete occlusion evident IPR denied. Family agreeable to [facility] 01/31 - NPO for possible surgery. Dr. Santo wanted to re-eval left third toe of left foot Cardiology consulted per surgery for pre-op clearance. Echo ordered to eval EF / stenosis if echo is normal, okay for surgery as low-intermediate cardiac risk Afebrile, no leukcytosis Continue PT, pain control Likely surgery tomorrow Acute CVA Suspected cavernous hemangioma with subacute bleed. 5/ - Patient more confused today. CT head shows age indeterminate small left frontal and parietal infarcts. MRI noted 2cm acute infarction left frontal lobe, 1.1cm area of increased signal left frontal lobe may represent a cavernous angioma with subacute blood. Discussed with Neuro and Radiology, recommended stat CT head without contrast which did not show any acute bleed Eliquis reversed with Kcentra. Transfer to [facility] initiated and denied. Neuro is following 01/28 - Repeat CT 12 hours later showed stable lesion Denies any headache or focal weakness. No significant changes overnight. 01/29 - More awake/alert today. No events overnight. Tolerating diet. Consider repeat CT within the next 3-5 days to reassess Continue statin, hold aspirin and eliquis. 01/31 - Stable. No new neurological symptoms or deficits. will discuss with Dr. Stuart regarding timing of repeat CT Urinary retention Has rosenberg POA from last hospitalization d/t ?Post-op retention. Placed 12/23/24. Failed voiding trial last hospitalization and was told to f/u with urology as outpatient. Rosenberg in place f/u with Urology as outpatient Continue flomax Hypertension Hyperlipidemia Hypothyroidism Rheumatoid Arthritis Hx Bilateral TKA continue home duloxetine, synthroid, robaxin, protonix, crestor 01/31 - consider Coreg 3.125 mg po BID per cardiology VTE: eliquis on hold Code: Full Dispo: SNF Possible surgery tomorrow for left toe Time Spent Managing Pts Care (In Minutes): 55
--- NOTE | 2025-01-31 11:11 | P.CNS ---
Date of Consult: 01/31/25 Chief Complaint: Acute blood loss anemia; patient with active bleeding from revision of TMA History of Present Illness: Patient with PMH of significant PAD, complex s/p multiple interventions by vascular team at [facility], presented earlier with TMA stump bleeding and infection s/p surgical intervention, she denies having chest pain, no palpitations, no syncope, no breathing problems. Allergies sulfamethoxazole [From Bactrim] Allergy (Verified 01/23/25 04:13) Nausea/Vomiting trimethoprim [From Bactrim] Allergy (Verified 01/23/25 04:13) Nausea/Vomiting Home medications list reviewed: Yes Home Medications: Acetaminophen 650 mg PO Q6H PRN 01/23/25 Amoxicillin/Potassium Clav [Amox-Clav 875-125 mg Tablet] 1 each PO BID 01/23/25 Apixaban [Eliquis] 5 mg PO BID 01/23/25 Aspirin Chewable [Aspirin Chewable*] 81 mg PO DAILY 01/23/25 Duloxetine [Cymbalta Dalayed Release Pellets] 30 mg PO DAILY 01/23/25 Hydrocodone Bit/Acetaminophen [Hydrocodon-Acetaminophen 5-325] 1 each PO TID 01/23/25 Levothyroxine [Synthroid] 50 mcg PO [id number] 01/23/25 Methotrexate Sodium [Methotrexate] 2.5 mg PO 15AC 01/23/25 Omeprazole [Prilosec] 40 mg PO DAILY 01/23/25 Polyethyl Gly 3350 [Glycolax] 17 gm PO DAILY 01/23/25 Rosuvastatin [Crestor] 10 mg PO DAILY 01/23/25 Tamsulosin [Flomax] 0.4 mg PO [id number] 01/23/25 Zinc Sulfate 50 mg PO TID 01/23/25 methocarbamoL [Methocarbamol] 500 mg PO TID 01/23/25 - Past Medical/Surgical History Diabetic: No -: DM-2 -: HTN -: Gangrene -: Diabetic foot ulcer -: Hyperlipidemia -: RA -: Hyperthyroid -: Bunionectomy -: Right TKA -: Left TKA -: Finger amputation - Family History Father Medical History: Heart disease Family History: Reviewed- Non-Contributory - Social History Alcohol use: No CD- Drugs: No Caffeine use: Yes Place of Residence: Home Review of Systems 10-point ROS is otherwise unremarkable Physical Examination Temp Pulse Resp BP Pulse Ox 98.4 F 78 18 143/75 H 95 01/31/25 08:00 01/31/25 08:00 01/31/25 08:00 01/31/25 08:00 01/31/25 08:00 General: Alert, In no apparent distress HEENT: Atraumatic, PERRLA, Mucous membr. moist/pink, EOMI, Sclerae nonicteric Neck: Supple, 2+ carotid pulse no bruit, No LAD, Without JVD or thyroid abnormality Respiratory: Clear to auscultation bilaterally, Normal air movement Cardiovascular: Regular rate/rhythm, Normal S1 S2 Gastrointestinal: Normal bowel sounds, No tenderness Musculoskeletal: No tenderness Integumentary: No rashes Neurological: Normal gait, Normal speech, Normal tone, Normal affect Lymphatics: No axilla or inguinal lymphadenopathy - Problems (1) Preoperative clearance Current Visit: Yes Status: Acute Plan: Patient is not having any active chest pain, no arrhythmia, EKG non specific, patient already tolerated surgery earlier with no cardiac complications. recommend getting echo is normal then can proceed with surgery as low to intermediate cardiac risk. outpatient follow up with cardiology. (2) HTN (hypertension) Current Visit: Yes Status: Acute Plan: BP mild elevated recommend starting patient on Coreg 3.125 mg po BID Continue to monitor (3) PAD (peripheral artery disease) Current Visit: Yes Status: Acute Plan: Very complex with multiple interventions done by vascular team at [facility], advised patient and daughter that it is for their best interest to follow up with same vascular team as they are aware of her leg anatomy and what interventions were done but daughter refuse to go back to [facility], so i advised to check with her insurance to see what vascular surgeon they can go to in the area. patient will definitely need a vascular surgeon due to complexity of her PAD continue ASA 81 mg daily continue Lipitor 40 mg daily
--- NOTE | 2025-01-31 19:55 | RAD REPORT ---
EXAM: CT Head Brain Wo Cont HISTORY: f/u parenchymal hemorrhage COMPARISON: 01/28/2025 TECHNIQUE: Multiple contiguous axial images were obtained for a CT of the brain without contrast. Sag ittal and coronal reformats were performed. One or more of the following dose reduction techniques were used: Automated exposure control, adjus tment of the mA and kV according to patient size, and iterative reconstruction. Unless otherwise specified, incidental findings do not require dedicated imaging follow-up. FINDINGS: No evidence of hydrocephalus, intracranial hemorrhage, or extra-axial fluid collection. Stable left frontal cortical/subcortical focus of hypoattenuation compatible with known infarct. [place] cent more anterior subcortical ovoid focus of hypoattenuation shown on prior MRI to represent a small subacute hematoma, also stable. No evidence of hemorrhagic transformation. Mild brain atrophy, stable. Moderate Periventricular and deep white matter nonspecific hypodensities, stable in burden, most suggestive of chronic microvascular ischemic changes. The calvarium is intact. The visualized paranasal sinuses and mastoid air cells are essentially clear . IMPRESSION: No evidence of acute intracranial abnormality. Stable findings as above.
[2025-02-01 04:26] LABS: Absolute Basophils 0.1 K/uL (0-0.5); Absolute Eosinophils 0.5 K/uL (0-0.5); Absolute Lymphocytes (CBC) 2.2 K/uL (0.7-4.9); Absolute Monocytes 1.4 K/uL (0.1-1.3); Absolute Neutrophil 7.9 K/uL (1.8-8.0); Basophils % 0.9 % (0-1.3); Eosinophils % 4.5 % (0-4.4); Hematocrit 23.9 % (36.0-45.0); Lymphocytes % 17.9 % (15.3-44.8); MCH 27.9 pg (27.0-35.0); MCHC 33.4 g/dL (32.0-36.0); MCV 83.4 fL (80-100); MPV 7.2 fL (7.6-11.3); Monocytes % 11.3 % (3.3-12.3); Neutrophils % 65.4 % (41.7-73.7); Platelets 187 thou/uL (152-406); RBC Red Blood Cell Count 2.86 M/uL (3.86-4.86); Red Cell Distribution Width 17.5 % (12.1-15.2)
[2025-02-01 04:35] LABS: Anion Gap 9.3 mEq/L (5.0-15.0); Magnesium 1.5 mg/dL (1.6-2.4); Potassium 3.3 mEq/L (3.5-5.1)
[2025-02-01] MEDS: KCL 20 MEQ/100 mL IVPB 20 MEQ/100 ML BAG IV SCH (05:59)
[2025-02-01] MEDS: PIPER TAZO 3.375 GM in NA CHLORIDE 0.9% 100 ML IV SCH (08:53)
--- NOTE | 2025-02-01 10:26 | ECHO ---
HEIGHT: 5 ft 5 in WEIGHT: 140 lb 1.6 oz DATE OF STUDY: 01/31/[address]: Willy Dinh MD 2-DIMENSIONAL: YES M.MODE: YES DOPPLER: YES COLOR FLOW: YES TDS: PORTABLE: YES DEFINITY: BUBBLE STUDY: DIAGNOSIS: PREOP CLEARANCE, HISTORY OF PERIPHERAL ARTERY DISEASE CARDIAC HISTORY: CATHERIZATION: NO SURGERY: NO PROSTHETIC VALVE: NO PACEMAKER: NO MEASUREMENTS (cm) DIASTOLIC (NORMALS) SYSTOLIC (NORMALS) IVSd 1.1 (0.6-1.2) LA Diam 2.3 (1.9-4.0) LVEF 50-55% LVIDd 3.9 (3.5-5.7) LVIDs 2.8 (2.0-3.5) %FS 28% LVPWd 1.1 (0.6-1.2) Ao Diam 2.8 (2.0-3.7) 2 DIMENSIONAL ASSESSMENT: RIGHT ATRIUM: NORMAL LEFT ATRIUM: NORMAL RIGHT VENTRICLE: NORMAL LEFT VENTRICLE: NORMAL TRICUSPID VALVE: MILD TRICUSPID REGURGITATION MITRAL VALVE: TRACE MITRAL REGURGITATION PULMONIC VALVE: NOT SEEN AORTIC VALVE: NORMAL PERICARDIAL EFFUSION: NONE AORTIC ROOT: NORMAL LEFT VENTRICULAR WALL MOTION: POOR IMAGES, HARD TO ASSESS WALL MOTION DOPPLER/COLOR FLOW: GRADE I DIASTOLIC DYSFUNCTION COMMENTS: 1. POOR IMAGES, HARD TO ASSESS WALL MOTION, ROUGHLY LEFT VENTRICULAR FUNCTION LOOKS NORMAL, EJECTION FRACTION 50-55% 2. GRADE I DIASTOLIC DYSFUNCTION TECHNOLOGIST: [place]
--- NOTE | 2025-02-01 11:55 | P.PN ---
Subjective Date of Service: 02/01/25 Chief Complaint: Acute blood loss anemia; patient with active bleeding from revision of TMA Subjective: No new changes, No C/O voiced, Tolerating diet, Ambulating, Improving Review of Systems 10-point ROS is otherwise unremarkable Physical Examination - Vital Signs Temperature: 978 F Blood Pressure: 148/77 Pulse: 77 Respirations: 12 Pulse Ox (%): 96 - Physical Exam General: Alert, In no apparent distress HEENT: Atraumatic, PERRLA, EOMI Neck: Supple, JVD not distended Respiratory: Clear to auscultation bilaterally, Normal air movement Cardiovascular: Regular rate/rhythm, Normal S1 S2 Gastrointestinal: Normal bowel sounds, No tenderness Musculoskeletal: No tenderness Integumentary: No rashes Neurological: Normal speech, Normal tone, Normal affect Lymphatics: No axilla or inguinal lymphadenopathy - Studies Medications List Reviewed: Yes Assessment And Plan - Current Problems (Diagnosis) (1) Preoperative clearance Current Visit: Yes Status: Acute Plan: Patient is not having any active chest pain, no arrhythmia, EKG non specific, patient already tolerated surgery earlier with no cardiac complications. Echo shows normal EF, normal flor motion Patient is cleared as low to intermediate cardiac risk. outpatient follow up with cardiology. (2) HTN (hypertension) Current Visit: Yes Status: Acute Plan: BP mild elevated recommend starting patient on Coreg 3.125 mg po BID Continue to monitor (3) PAD (peripheral artery disease) Current Visit: Yes Status: Acute Plan: Very complex with multiple interventions done by vascular team at [facility], advised patient and daughter that it is for their best interest [facility] as they are aware of her leg anatomy and what interventions were done but daughter refuse to go back to [facility], so i advised to check with her insurance to see what vascular surgeon they can go to in the area. patient will definitely need a vascular surgeon due to complexity of her PAD continue ASA 81 mg daily continue Lipitor 40 mg daily
--- NOTE | 2025-02-01 12:25 | P.PN ---
Date of Service: 02/01/25 Subjective: no acute events overnight doing okay, vitals stable. plan for OR today with Dr. Santo afebrile Physical Exam: GEN: Alert, orientedx2, confused CV: Regular rate and rhythm, systolic murmur Pulm: Nonlabored respirations on room air, clear bilaterally ABD: soft, nontender, nondistended Integumentary: Right BKA with dressing in place c/d/i Neuro: No focal motor deficit, no facial deviation. Rosenberg POA from last admission, placed 12/23 Problem List: Acute blood loss anemia Necrotic right TMA stump status post BKA (01/24) Acute CVA Suspected cavernous hemangioma with subacute bleed. Hx severe PVD s/p multiple interventions Urinary retention Hypertension Hyperlipidemia Hypothyroidism Rheumatoid Arthritis Hx Bilateral TKA Acute blood loss anemia Necrotic right TMA stump status post BKA (01/24) Hx severe PVD s/p multiple interventions On admission presents to ED after she started bleeding from the her right TMA wound site. EMS estimated ~500 ml of blood loss. Wound appears to be healing poorly with evidence of necrosis. Hx of extensive surgeries in attempts to salvage her foot. Admitted to ICU for close monitoring. Given tranexamic acid, pain meds in ED. hgb down to 6.7; s/p 2 uPRBC Iron studies normal. Lactic acid normal. 01/24 - s/p right BKA with Dr. Santo Will need to get nancy removed 2 weeks after day of surgery per Dr. Santo Empiric Zosyn, IV fluids, pain control. Eliquis, aspirin held for surgery Pain control 01/26 - Hip Pain improving. Family looking into inpatient rehab facilities Hgb down to 6.6; s/p 1uPRBC. Repeat hgb up to 8.5 01/27 - Patient confused today. CT/Brain showed acute left frontal lobe infarct, suspected hemangioma 01/29 - Patient has increased discoloration of the middle toe of the left foot. Third toe of left foot concerning for mild ischemia at the tip Dr. Santo recommended Doppler u/s which noted Diffuse left lower extremity monophasic waveform suggests moderate inflow disease. No complete occlusion evident IPR denied. Family agreeable to [facility] 01/31 - NPO for possible surgery. Dr. Santo wanted to re-eval left third toe of left foot Cardiology consulted per surgery for pre-op clearance. Echo with 50-55% EF, grade 1 diastolic dysfunction Okay for surgery as low-intermediate cardiac risk 02/01 - plan for OR today with Dr. Santo NPO for surgery Acute CVA Suspected cavernous hemangioma with subacute bleed. 01/27 - Patient more confused today. CT head shows age indeterminate small left frontal and parietal infarcts. MRI noted 2cm acute infarction left frontal lobe, 1.1cm area of increased signal left frontal lobe may represent a cavernous angioma with subacute blood. Discussed with Neuro and Radiology, recommended stat CT head without contrast which did not show any acute bleed Eliquis reversed with Kcentra. Transfer to [facility] initiated and denied. Neuro is following 01/28 - Repeat CT 12 hours later showed stable lesion Denies any headache or focal weakness. No significant changes overnight. 01/29 - More awake/alert today. No events overnight. Tolerating diet. Consider repeat CT within the next 3-5 days to reassess Continue statin, hold aspirin and eliquis. 01/31 - Stable. No new neurological symptoms or deficits. will discuss with Dr. Stuart regarding timing of repeat CT 02/[address] stable Urinary retention Has rosenberg POA from last hospitalization d/t ?Post-op retention. Placed 12/23/24. Failed voiding trial last hospitalization and was told to f/u with urology as outpatient. Rosenberg in place f/u with Urology as outpatient Continue flomax Hypertension Hyperlipidemia Hypothyroidism Rheumatoid Arthritis Hx Bilateral TKA continue home duloxetine, synthroid, robaxin, protonix, crestor 01/31 - consider Coreg 3.125 mg po BID per cardiology VTE: eliquis on hold Code: Full Dispo: SNF Possible surgery for left toe Time Spent Managing Pts Care (In Minutes): 55
[2025-02-01] MEDS: NA CHLORIDE 0.9% 1,000 ML ONE (13:48)
[2025-02-01] MEDS: BUPIVACAINE 0.5% PF 10 ML VIAL ONE (14:55)
[2025-02-01] MEDS: LIDOCAINE HCL/EPINEPHRINE 20 ML MDV ONE (14:58)
[2025-02-01] MEDS ORDERED: propofoL 200 MG/20 ML VIAL IV ONE (15:27)
[2025-02-01] MEDS ORDERED: MIDAZOLAM HCL 2 MG/2 ML INJ ONE (15:27)
[2025-02-01] MEDS ORDERED: LIDOCAINE 2% MPF 5 ML VIAL ONE (15:39)
--- NOTE | 2025-02-01 16:04 | P.OP ---
Preoperative diagnosis: Dry Gangrene of 2nd Toe of LEFT Foot Postoperative diagnosis: Dry Gangrene of 2nd Toe of LEFT Foot Primary procedure: Partial Amputation of 2nd toe of the LEFT foot Anesthesia: GETA + Block Estimated blood loss: <1cc Specimen: tip of toe Findings: Dry necrosis to tip of 2nd toe of LEFT foot Complications: None Transferred to: Recovery Room Condition: Good
--- NOTE | 2025-02-01 17:38 | OP ---
Date of Procedure: 02/01/2025 Surgeon: Alexi Santo MD, Preoperative Diagnosis: Dry gangrene of second toe of the left foot. Postoperative Diagnosis: Dry gangrene of second toe of the left foot. Procedure Performed: Partial amputation of second toe of the left foot. Anesthesia: MAC plus block/general. Estimated Blood Loss: Less than 1 cc. Specimen: Tip of toe. Findings: Dry necrosis of the tip of the second toe of the left foot. Complications: None. Disposition: The patient was transferred to recovery room in good condition. Procedure In Detail: After informed consent was obtained, patient was brought to the operating room, prepped and draped in the usual sterile fashion after adequate anesthesia was achieved. I made a ci rcumferential incision around the tip of the second toe of the left foot down to subcutaneous tissues . Ultimately, I dissected out the necrotic tissue ultimately to the interphalangeal joint between th e distal and the proximal interphalangeal joint. I then proceeded to ligate these structures between these two and sent the toe off after their all ligamentous and tendinous connections were ligated us ing a combination of electrocautery and Metzenbaum scissors. After this was removed in its entirety, the flaps were trimmed appropriately and irrigated copiously and closed after the incision was T'd o ut for optimal closure in an interrupted type fashion using 3-0 nylon sutures with good approximation of tissues. A sterile dressing was then placed over top. The patient tolerated the procedure well without incident or complication, transferred to PACU in good condition. All counts were correct at the end of the case. TAHIRA/RODERICKL Voice ID: [id number] Report ID: [id number]
[2025-02-01] MEDS: POTASSIUM 25 MEQ EFFERV TAB ONE (20:59)
[2025-02-01] MEDS: POTASSIUM 25 MEQ EFFERV TAB PO ONE (21:00)
[2025-02-02 05:00] LABS: Absolute Basophils 0.1 K/uL (0-0.5); Absolute Eosinophils 0.7 K/uL (0-0.5); Absolute Lymphocytes (CBC) 2.4 K/uL (0.7-4.9); Absolute Monocytes 1.6 K/uL (0.1-1.3); Absolute Neutrophil 8.5 K/uL (1.8-8.0); Basophils % 0.8 % (0-1.3); Eosinophils % 5.4 % (0-4.4); Hemoglobin 8.3 g/dL (12.0-15.0); Lymphocytes % 17.9 % (15.3-44.8); MCH 27.4 pg (27.0-35.0); MCV 82.9 fL (80-100); MPV 6.8 fL (7.6-11.3); Monocytes % 11.8 % (3.3-12.3); Neutrophils % 64.1 % (41.7-73.7); Nucleated Red Blood Cells % 0.1 % (0-0); Platelets 245 thou/uL (152-406); RBC Red Blood Cell Count 3.02 M/uL (3.86-4.86); Red Cell Distribution Width 17.2 % (12.1-15.2)
[2025-02-02 05:14] LABS: Anion Gap 9.3 mEq/L (5.0-15.0); Magnesium 1.6 mg/dL (1.6-2.4); Potassium 3.3 mEq/L (3.5-5.1)
[2025-02-02] MEDS: POTASSIUM 25 MEQ EFFERV TAB PO ONE (05:58)
[2025-02-02 12:03] VITALS: O2SAT 98
--- NOTE | 2025-02-02 12:22 | P.PN ---
Date of Service: 02/02/25 Subjective: had partial amputation of 2nd toe of left foot yesterday refused wound care today no new / worsening problems afebrile Physical Exam: GEN: Alert, orientedx2, confused CV: Regular rate and rhythm, systolic murmur Pulm: Nonlabored respirations on room air, clear bilaterally ABD: soft, nontender, nondistended Integumentary: Right BKA with dressing in place c/d/i Neuro: No focal motor deficit, no facial deviation. 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 EMS estimated ~500 ml of blood loss. Wound appears to be healing poorly with evidence of necrosis. Hx of extensive surgeries in attempts to salvage her foot. Admitted to ICU for close monitoring. Given tranexamic acid, pain meds in ED. hgb down to 6.7; s/p 2 uPRBC Iron studies normal. Lactic acid normal. 01/24 - s/p right BKA with Dr. Santo Will need to get nancy removed 2 weeks after day of surgery per Dr. Santo Empiric Zosyn, IV fluids, pain control. Eliquis, aspirin held for surgery Pain control 01/26 - Hip Pain improving. Family looking into inpatient rehab facilities Hgb down to 6.6; s/p 1uPRBC. Repeat hgb up to 8.5 01/27 - Patient confused today. CT/Brain showed acute left frontal lobe infarct, suspected hemangioma 01/29 - Patient has increased discoloration of the middle toe of the left foot. Third toe of left foot concerning for mild ischemia at the tip Dr. Santo recommended Doppler u/s which noted Diffuse left lower extremity monophasic waveform suggests moderate inflow disease. No complete occlusion evident IPR denied. Family agreeable to SNF - [facility] 01/31 - Dr. Santo wanted to re-eval left third toe of left foot Cardiology consulted per surgery for pre-op clearance. Echo with 50-55% EF, grade 1 diastolic dysfunction Okay for surgery as low-intermediate cardiac risk 02/01 - s/p partial amputation of 2nd toe of the left foot Continue wound care, pain control, IV zosyn (01/24-) Acute CVA Suspected cavernous hemangioma with subacute bleed. 01/27 - Patient more confused today. CT head shows age indeterminate small left frontal and parietal infarcts. MRI noted 2cm acute infarction left frontal lobe, 1.1cm area of increased signal left frontal lobe may represent a cavernous angioma with subacute blood. Discussed with Neuro and Radiology, recommended stat CT head without contrast which did not show any acute bleed Eliquis reversed with Kcentra. Transfer to [facility] initiated and denied. Neuro is following 01/28 - Repeat CT 12 hours later showed stable lesion Denies any headache or focal weakness. No significant changes overnight. 01/29 - More awake/alert today. No events overnight. Tolerating diet. Consider repeat CT within the next 3-5 days to reassess Continue statin, hold aspirin and eliquis. 01/31 - Stable. No new neurological symptoms or deficits. will discuss with Dr. Stuart regarding timing of repeat CT 02/01 - repeat CT stable Urinary retention Has rosenberg POA from last hospitalization d/t ?Post-op retention. Placed 12/23/24. Failed voiding trial last hospitalization and was told to f/u with urology as outpatient. Rosenberg in place f/u with Urology as outpatient Continue flomax Hypertension Hyperlipidemia Hypothyroidism Rheumatoid Arthritis Hx Bilateral TKA continue home duloxetine, synthroid, robaxin, protonix, crestor 01/31 - consider starting Coreg 3.125 mg po BID per cardiology VTE: eliquis on hold Code: Full Dispo: SNF Pending surgical recs, SNF approval Time Spent Managing Pts Care (In Minutes): 55
[2025-02-03 09:03] LABS: Absolute Basophils 0.1 K/uL (0-0.5); Absolute Eosinophils 0.2 K/uL (0-0.5); Absolute Lymphocytes (CBC) 1.6 K/uL (0.7-4.9); Absolute Monocytes 0.8 K/uL (0.1-1.3); Absolute Neutrophil 6.5 K/uL (1.8-8.0); Basophils % 0.7 % (0-1.3); Eosinophils % 2.6 % (0-4.4); Hematocrit 23.3 % (36.0-45.0); Hemoglobin 7.7 g/dL (12.0-15.0); Lymphocytes % 17.6 % (15.3-44.8); MCH 27.5 pg (27.0-35.0); MCHC 33.2 g/dL (32.0-36.0); MCV 82.6 fL (80-100); MPV 6.9 fL (7.6-11.3); Monocytes % 8.5 % (3.3-12.3); Neutrophils % 70.6 % (41.7-73.7); Platelets 177 thou/uL (152-406); RBC Red Blood Cell Count 2.82 M/uL (3.86-4.86)
[2025-02-03 09:19] LABS: Anion Gap 10.1 mEq/L (5.0-15.0); Magnesium 1.6 mg/dL (1.6-2.4); Potassium 3.1 mEq/L (3.5-5.1)
--- NOTE | 2025-02-03 10:34 | P.PN ---
Date of Service: 02/03/25 Subjective: encouraged to work with physical therapy worked with PT today. able to sit at the edge of the bed and did some sitting exercises Participation limited by pain, anxiety, weightbearing status. 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 EMS estimated ~500 ml of blood loss. Wound appears to be healing poorly with evidence of necrosis. Hx of extensive surgeries in attempts to salvage her foot. Admitted to ICU for close monitoring. Given tranexamic acid, pain meds in ED. hgb down to 6.7; s/p 2 uPRBC Iron studies normal. Lactic acid normal. 01/24 - s/p right BKA with Dr. Santo Will need to get nancy removed 2 weeks after day of surgery per Dr. Santo Empiric Zosyn, IV fluids, pain control. Eliquis, aspirin held for surgery Pain control 01/26 - Hip Pain improving. Family looking into inpatient rehab facilities Hgb down to 6.6; s/p 1uPRBC. Repeat hgb up to 8.5 01/27 - Patient confused today. CT/Brain showed acute left frontal lobe infarct, suspected hemangioma 01/29 - Patient has increased discoloration of the middle toe of the left foot. Third toe of left foot concerning for mild ischemia at the tip Dr. Santo recommended Doppler u/s which noted Diffuse left lower extremity monophasic waveform suggests moderate inflow disease. No complete occlusion evident IPR denied. Family agreeable to SNF - [facility] 01/31 - Dr. Santo wanted to re-eval left third toe of left foot Cardiology consulted per surgery for pre-op clearance. Echo with 50-55% EF, grade 1 diastolic dysfunction Okay for surgery as low-intermediate cardiac risk 02/01 - s/p partial amputation of 2nd toe of the left foot 02/03 - Continue PT. Sat at the edge of the bed and did some exercises in bed. Pending SNF approval. Family updated at bedside Continue wound care, pain control, IV zosyn (01/24-) slight drop in hgb, continue to monitor. Leukocytosis resolved, afebrile. Acute CVA Suspected cavernous hemangioma with subacute bleed. 01/27 - Patient more confused today. CT head shows age indeterminate small left frontal and parietal infarcts. MRI noted 2cm acute infarction left frontal lobe, 1.1cm area of increased signal left frontal lobe may represent a cavernous angioma with subacute blood. Discussed with Neuro and Radiology, recommended stat CT head without contrast which did not show any acute bleed Eliquis reversed with Kcentra. Transfer to [facility] initiated and denied. Neuro is following 01/28 - Repeat CT 12 hours later showed stable lesion Denies any headache or focal weakness. No significant changes overnight. 01/29 - More awake/alert today. No events overnight. Tolerating diet. Consider repeat CT within the next 3-5 days to reassess Continue statin, hold aspirin and eliquis. 01/31 - Stable. No new neurological symptoms or deficits. will discuss with Dr. Stuart regarding timing of repeat CT 02/01 - repeat CT stable 02/03 - Stable. No new symptoms. Urinary retention Has rosenberg POA from last hospitalization d/t ?Post-op retention. Placed 12/23/24. Failed voiding trial last hospitalization and was told to f/u with urology as outpatient. Rosenberg in place f/u with Urology as outpatient Continue flomax Hypertension Hyperlipidemia Hypothyroidism Rheumatoid Arthritis Hx Bilateral TKA continue home duloxetine, synthroid, robaxin, protonix, crestor 01/31 - consider starting Coreg 3.125 mg po BID per cardiology VTE: eliquis on hold Code: Full Dispo: SNF Pending surgical recs, SNF approval - vs home health Time Spent Managing Pts Care (In Minutes): 55
[2025-02-03] MEDS: POTASSIUM CL SA 10 MEQ TAB PO ONE (18:08)
[2025-02-03] MEDS: MAGNESIUM SULFATE 1 gm IVPB 1 GM/100 ML BAG IV ONE (18:08)
[2025-02-04 05:19] LABS: Hematocrit 23.1 % (36.0-45.0); Hemoglobin 7.7 g/dL (12.0-15.0); MCH 27.4 pg (27.0-35.0); MCHC 33.4 g/dL (32.0-36.0); MCV 82.1 fL (80-100); MPV 6.9 fL (7.6-11.3); Platelets 168 thou/uL (152-406); RBC Red Blood Cell Count 2.81 M/uL (3.86-4.86); Red Cell Distribution Width 17.4 % (12.1-15.2)
[2025-02-04 05:33] LABS: Anion Gap 10.2 mEq/L (5.0-15.0); Magnesium 1.9 mg/dL (1.6-2.4); Potassium 3.2 mEq/L (3.5-5.1)
[2025-02-04] MEDS: KCL 20 MEQ/100 mL IVPB 20 MEQ/100 ML BAG IV SCH (08:34)
--- NOTE | 2025-02-04 11:08 | P.PN ---
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 EMS estimated ~500 ml of blood loss. Wound appears to be healing poorly with evidence of necrosis. Hx of extensive surgeries in attempts to salvage her foot. Admitted to ICU for close monitoring. Given tranexamic acid, pain meds in ED. hgb down to 6.7; s/p 2 uPRBC Iron studies normal. Lactic acid normal. 01/24 - s/p right BKA with Dr. Santo Will need to get nancy removed 2 weeks after day of surgery per Dr. Santo Empiric Zosyn, IV fluids, pain control. Eliquis, aspirin held for surgery Pain control 01/26 - Hip Pain improving. Family looking into inpatient rehab facilities Hgb down to 6.6; s/p 1uPRBC. Repeat hgb up to 8.5 01/27 - Patient confused today. CT/Brain showed acute left frontal lobe infarct, suspected hemangioma 01/29 - Patient has increased discoloration of the middle toe of the left foot. Third toe of left foot concerning for mild ischemia at the tip Dr. Santo recommended Doppler u/s which noted Diffuse left lower extremity monophasic waveform suggests moderate inflow disease. No complete occlusion evident IPR denied. Family agreeable to SNF - [facility] 01/31 - Dr. Santo wanted to re-eval left third toe of left foot Cardiology consulted per surgery for pre-op clearance. Echo with 50-55% EF, grade 1 diastolic dysfunction Okay for surgery as low-intermediate cardiac risk 02/01 - s/p partial amputation of 2nd toe of the left foot 02/03 - Continue PT. Sat at the edge of the bed and did some exercises in bed. Pending SNF approval. Family updated at bedside Continue wound care, pain control, IV zosyn (01/24-) slight drop in hgb, continue to monitor. Leukocytosis resolved, afebrile. 02/04 - Denied SNF yesterday. Family now planning to go home with Morph[facility] DC'd continue PT Hgb stable. Acute CVA Suspected cavernous hemangioma with subacute bleed. 01/27 - Patient more confused today. CT head shows age indeterminate small left frontal and parietal infarcts. MRI noted 2cm acute infarction left frontal lobe, 1.1cm area of increased signal left frontal lobe may represent a cavernous angioma with subacute blood. Discussed with Neuro and Radiology, recommended stat CT head without contrast which did not show any acute bleed Eliquis reversed with Kcentra. Transfer to [facility] initiated and denied. Neuro is following 01/28 - Repeat CT 12 hours later showed stable lesion Denies any headache or focal weakness. No significant changes overnight. 01/29 - More awake/alert today. No events overnight. Tolerating diet. Consider repeat CT within the next 3-5 days to reassess Continue statin, hold aspirin and eliquis. 01/31 - Stable. No new neurological symptoms or deficits. will discuss with Dr. Stuart regarding timing of repeat CT 02/01 - repeat CT stable 02/03 - Stable. No new symptoms. 02/04 - Stable. Urinary retention Has rosenberg POA from last hospitalization d/t ?Post-op retention. Placed 12/23/24. Failed voiding trial last hospitalization and was told to f/u with urology as outpatient. Rosenberg in place f/u with Urology as outpatient Continue flomax Hypertension Hyperlipidemia Hypothyroidism Rheumatoid Arthritis Hx Bilateral TKA continue home duloxetine, synthroid, robaxin, protonix, crestor 01/31 - consider starting Coreg 3.125 mg po BID per cardiology VTE: eliquis on hold Code: Full Dispo: home with HH; SNF denied pending [facility] improvement and awaiting set up. No SW/CM over weekend Time Spent Managing Pts Care (In Minutes): 55
[2025-02-04] MEDS: HYDROCODONE/APAP 5/325 MG TAB PO PRN (15:46)
[2025-02-04] MEDS: POTASSIUM CL SA 10 MEQ TAB PO ONE (15:47)
[2025-02-04] MEDS: MORPHINE 4 MG/ML SYR IV PRN (21:09)
[2025-02-05 07:55] LABS: Hematocrit 24.9 % (36.0-45.0); MCH 26.7 pg (27.0-35.0); MCHC 32.3 g/dL (32.0-36.0); MCV 82.9 fL (80-100); Platelets 197 thou/uL (152-406); RBC Red Blood Cell Count 3.01 M/uL (3.86-4.86); Red Cell Distribution Width 17.5 % (12.1-15.2)
[2025-02-05 08:09] LABS: Anion Gap 7.5 mEq/L (5.0-15.0); Magnesium 1.8 mg/dL (1.6-2.4); Potassium 3.5 mEq/L (3.5-5.1)
--- NOTE | 2025-02-05 13:09 | P.PN ---
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 EMS estimated ~500 ml of blood loss. Wound appears to be healing poorly with evidence of necrosis. Hx of extensive surgeries in attempts to salvage her foot. Admitted to ICU for close monitoring. Given tranexamic acid, pain meds in ED. hgb down to 6.7; s/p 2 uPRBC Iron studies normal. Lactic acid normal. 01/24 - s/p right BKA with Dr. Santo Will need to get nancy removed 2 weeks after day of surgery per Dr. Santo Empiric Zosyn, IV fluids, pain control. Eliquis, aspirin held for surgery Pain control 01/26 - Hip Pain improving. Family looking into inpatient rehab facilities Hgb down to 6.6; s/p 1uPRBC. Repeat hgb up to 8.5 01/27 - Patient confused today. CT/Brain showed acute left frontal lobe infarct, suspected hemangioma 01/29 - Patient has increased discoloration of the middle toe of the left foot. Third toe of left foot concerning for mild ischemia at the tip Dr. Santo recommended Doppler u/s which noted Diffuse left lower extremity monophasic waveform suggests moderate inflow disease. No complete occlusion evident IPR denied. Family agreeable to [facility] - [facility] 01/31 - Dr. Kovacev wanted to re-eval left third toe of left foot Cardiology consulted per surgery for pre-op clearance. Echo with 50-55% EF, grade 1 diastolic dysfunction Okay for surgery as low-intermediate cardiac risk 02/01 - s/p partial amputation of 2nd toe of the left foot 02/03 - Continue PT. Sat at the edge of the bed and did some exercises in bed. Pending SNF approval. Family updated at bedside Continue wound care, pain control, IV zosyn (01/24-) slight drop in hgb, continue to monitor. Leukocytosis resolved, afebrile. 02/04 - Denied SNF yesterday. Family now planning to go home with HH Morphine DC'd continue PT Hgb stable. 02/05 - wound care done yesterday was painful Morphine re-added overnight per night doc otherwise stable. No new issues. potassium improved Acute CVA Suspected cavernous hemangioma with subacute bleed. 01/27 - Patient more confused today. CT head shows age indeterminate small left frontal and parietal infarcts. MRI noted 2cm acute infarction left frontal lobe, 1.1cm area of increased signal left frontal lobe may represent a cavernous angioma with subacute blood. Discussed with Neuro and Radiology, recommended stat CT head without contrast which did not show any acute bleed Eliquis reversed with Kcentra. Transfer to [facility] initiated and denied. Neuro is following 01/28 - Repeat CT 12 hours later showed stable lesion Denies any headache or focal weakness. No significant changes overnight. 01/29 - More awake/alert today. No events overnight. Tolerating diet. Consider repeat CT within the next 3-5 days to reassess Continue statin, hold aspirin and eliquis. 01/31 - Stable. No new neurological symptoms or deficits. will discuss with Dr. Stuart regarding timing of repeat CT 02/01 - repeat CT stable 02/03 - Stable. No new symptoms. 02/05 - Stable. Urinary retention Has rosenberg POA from last hospitalization d/t ?Post-op retention. Placed 12/23/24. Failed voiding trial last hospitalization and was told to f/u with urology as outpatient. Rosenberg in place f/u with Urology as outpatient Continue flomax Hypertension Hyperlipidemia Hypothyroidism Rheumatoid Arthritis Hx Bilateral TKA continue home duloxetine, synthroid, robaxin, protonix, crestor 01/31 - consider starting Coreg 3.125 mg po BID per cardiology VTE: eliquis on hold Code: Full Dispo: home with HH; SNF denied pending K improvement and awaiting HH set up. No SW/CM over weekend Time Spent Managing Pts Care (In Minutes): 55
[2025-02-06] MEDS: HYDROCODONE/APAP 7.5/325 MG TAB PO PRN (11:01)
--- NOTE | 2025-02-06 13:03 | P.PN ---
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 EMS estimated ~500 ml of blood loss. Wound appears to be healing poorly with evidence of necrosis. Hx of extensive surgeries in attempts to salvage her foot. Admitted to ICU for close monitoring. Given tranexamic acid, pain meds in ED. hgb down to 6.7; s/p 2 uPRBC Iron studies normal. Lactic acid normal. 01/24 - s/p right BKA with Dr. Santo Will need to get nancy removed 2 weeks after day of surgery per Dr. Santo Empiric Zosyn, IV fluids, pain control. Eliquis, aspirin held for surgery Pain control 01/26 - Hip Pain improving. Family looking into inpatient rehab facilities Hgb down to 6.6; s/p 1uPRBC. Repeat hgb up to 8.5 01/27 - Patient confused today. CT/Brain showed acute left frontal lobe infarct, suspected hemangioma 01/29 - Patient has increased discoloration of the middle toe of the left foot. Third toe of left foot concerning for mild ischemia at the tip Dr. Santo recommended Doppler u/s which noted Diffuse left lower extremity monophasic waveform suggests moderate inflow disease. No complete occlusion evident IPR denied. Family agreeable to [facility] - [facility] 01/31 - Dr. Santo wanted to re-eval left third toe of left foot Cardiology consulted per surgery for pre-op clearance. Echo with 50-55% EF, grade 1 diastolic dysfunction Okay for surgery as low-intermediate cardiac risk 02/01 - s/p partial amputation of 2nd toe of the left foot 02/03 - Continue PT. Sat at the edge of the bed and did some exercises in bed. Pending SNF approval. Family updated at bedside Continue wound care, pain control, IV zosyn (01/24-) slight drop in hgb, continue to monitor. Leukocytosis resolved, afebrile. 02/04 - Denied SNF yesterday. Family now planning to go home with Morphine DC'd continue PT Hgb stable. 02/05 - wound care done yesterday was painful Morphine re-added overnight per night doc otherwise stable. No new issues. potassium improved 02/06 - Reluctant to get wound care done today. 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 01/27 - Patient more confused today. CT head shows age indeterminate small left frontal and parietal infarcts. MRI noted 2cm acute infarction left frontal lobe, 1.1cm area of increased signal left frontal lobe may represent a cavernous angioma with subacute blood. Discussed with Neuro and Radiology, recommended stat CT head without contrast which did not show any acute bleed Eliquis reversed with Kcentra. Transfer to [facility] initiated and denied. Neuro is following 01/28 - Repeat CT 12 hours later showed stable lesion Denies any headache or focal weakness. No significant changes overnight. 01/29 - More awake/alert today. No events overnight. Tolerating diet. Consider repeat CT within the next 3-5 days to reassess Continue statin, hold aspirin and eliquis. 01/31 - Stable. No new neurological symptoms or deficits. will discuss with Dr. Stuart regarding timing of repeat CT 02/01 - repeat CT stable 02/03 - Stable. No new symptoms. 02/05 - Stable. 02/06 - Urinary retention Has rosenberg POA from last hospitalization d/t ?Post-op retention. Placed 12/23/24. Failed voiding trial last hospitalization and was told to f/u with urology as outpatient. Rosenberg in place f/u with Urology as outpatient Continue flomax Hypertension Hyperlipidemia Hypothyroidism Rheumatoid Arthritis Hx Bilateral TKA continue home duloxetine, synthroid, robaxin, protonix, crestor 5/6 - consider starting Coreg 3.125 mg po BID per cardiology VTE: eliquis on hold Code: Full Dispo: home with Time Spent Managing Pts Care (In Minutes): 55
[2025-02-06] MEDS: ACETAMINOPHEN 500 MG TAB PO PRN (14:15)
[2025-02-06 16:29] VITALS: BP 121/66; TEMP 98.6
[2025-02-06] MEDS ORDERED: GLUCERNA SHAKE 237 ML CAN PO SCH (21:00)
--- NOTE | 2025-02-13 20:08 | P.DS ---
Admission Date: 01/23/25 Discharge Date: 02/06/25 Disposition: DC HOME/HOME HEALTH CARE Discharge Condition: FAIR Reason for Admission: Acute blood loss anemia; patient with active bleeding from revision of TMA Consultations: Neurology - Dr. Stuart Cardiology - Dr. Dinh General Surgery - Dr. Santo Brief History of Present Illness: Patient is a 69-year-old female who presents to the hospital with active bleeding from a debridement of her transmetatarsal amputation that was done on December 23. Patient has had extensive surgeries to salvage her foot but unfortunately patient has not really done well with caring for her foot. Patient was found to have extensive PAD and had attempt at revascularization done on October 16. Patient had an angiogram done of the bilateral lower extremities and patient had an angioplasty done of the right peroneal artery as well as a right anterior tibial angioplasty performed. Patient also had a distal right superficial femoral artery angioplasty and after the procedure patient had no residual stenosis. Had an angiogram of the left lower extremity as well which showed a posterior tibial occlusion proximally as well as the left peroneal and left anterior tibial multifocal stenosis. On October 22 patient underwent right great toe amputation as the toe was necrotic and nonsalvageable. Unfortunately, patient's wound was not healing well. Patient ended up having a transmetatarsal amputation on November 23, 2024. By December 23 the wound still was not healing well and decision was made to proceed with repair of the right peripheral arterial system. Patient had a right superficial femoral artery cutdown and primary repair of the superficial femoral artery. Patient also had balloon angioplasty of the tibioperoneal trunk and the posterior tibial artery. Patient had a right lower extremity deep venous arterialization performed with stenting of the right tibioperoneal trunk into the posterior tibial vein. Patient also had the right transmetatarsal amputation debrided at that time and it was debrided down to the bone. Patient ended up staying at [facility] till January 13. Patient was not wearing her wound VAC appropriately so they changed her wound care to wet-to-dry dressing changes. Home health nurses were caring for the wound but around January 17 they notified the physician that the wound was starting to look necrotic. Dr. Nader Wood, patient's vascular surgeon, has schedule an appointment for today. However, the patient started having bleeding from the wound site and she came into our emergency room for further evaluation. Patient was seen by the ER physician and he had a brief conversation with the patient and they spoke with the general surgeon on-call, Dr. Santo, and patient was deemed appropriate to be admitted to [facility] for further care as patient was hesitant on going back to [facility] because of all the intervention she has had to undergo. She looks to be a little lethargic and fatigued and she gets tearful at times when she talks about her wound care. As her hemoglobin is very low at 6.7, and the fact that she is on Eliquis and it appeared to be an arterial bleed that has stopped, plan is to admit the patient to the ICU for closer monitoring. I did talk to the patient about going back to [facility] but she did not really seem overly engaging to have a conversation regarding getting transferred back to the institution where she has had the wound cared for but she was uncertain. I do not know if she is in a clear frame of mind to have that discussion at this point. Will go ahead and transfuse her 2 units of packed red blood cells and will discuss with the surgical team regarding long-term plan of care. Patient's stump which involves her transmetatarsal revision is necrotic and she probably needs to have a below-knee amputation. Have discussed with patient regarding further plan of care and she is not wanting to be trasnferred. Patient took her Eliquis yesterday so the plan is to hold off any surgical intervention for the next 48 hours. 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 Hx severe PVD s/p multiple interventions Urinary retention Hypertension Hyperlipidemia Hypothyroidism Rheumatoid Arthritis Hx Bilateral TKA Physician discharge instructions: Patient presented to ED with poor healing TMA stump wound after she started bleeding from the her right TMA wound site. Her hemoglobin was noted to be 6.7 on admission, improved to 9.4 with 2 blood transfusions. Patient noted to have significant history of PVD with extensive list of surgeries in attempts to salvage her foot. She was evaluated by Dr. Santo, general surgeon, and ultimately the decision was made for right BKA, done 01/24. Post-operatively, hemoglobin fluctuated in the low 7s, high 6s requiring a 3rd blood transfusion on 01/27. Since then her hemoglobin improved and has remained stable in the high 7-8s. On exam, her middle toe of the left foot was noted to have increased discoloration, concerning for mild ischemia at the tip. Dr. Santo recommended doppler study which noted diffuse monophasic waveforms in left lower extremity. She was re-evaluated by Dr. Santo and underwent partial amputation of middle toe of left foot. Patient tolerated procedure well without issues. Hemoglobin remained stable post-operatively. Patient has completed 2 weeks of IV zosyn while hospitalized. Patient will need to get nancy removed 2 weeks after day of TMA surgery per Dr. Santo (~02/08) She will complete 5 more days of Augmentin Patient was noted to be more confused, lethargic on 01/27. CT Brain showed acute left frontal lobe infarct, suspected hemangioma. Dr. Stuart, neurologist was consulted. MRI noted 2cm acute infarction left frontal lobe, 1.1cm area of increased signal left frontal lobe may represent a cavernous angioma with subacute blood. Discussed critical findings with Neuro and radiology who recommended stat CT head without contrast which did not show any acute active bleed. Patient had her eliquis reversed with Kcentra. Transfer was initiated to [facility] but ultimately was denied. Repeat CT done 12 hours later showed stable lesion. Patient has remained stable without any new neurological symptoms or deficits. She denied any focal weakness or headaches. Repeat CT done 02/01 continued to demonstrate stability. It was unclear, and we were unable to get records to find out definitively why she was recently started on Eliquis. Suspect this was after her recent vascular procedures. So unable to fully review risk vs benefits with patient and family about holding eliquis vs resuming it. If eliquis was started after the RLE vascular interventions, will not require eliquis any further now that she underwent TMA. Discussed with patient and her daughter that there is still uncertainty and recommend for them to follow up with vascular in the next week to review risk vs benefit of eliquis. Patient presented with rosenberg in place on admission from last hospitalization due to ?post-op retention. She failed voiding trial last hospitalization and was told to f/u with urology as outpatient. Rosenberg was eventually removed during this hospitalization and she has been able to urinate without issues since rosenberg removal via purewick. Consider outpatient urology if symptoms reoccur Continue local wound care per surgery: Medial thigh wound - rinse with vashe, then saline, apply santyl, gauze packing BKA site - changed daily with xerform, fluffs, kerlix, patricio, knee immobilizer LEFT toe - remove all dressings, clean with hibicleans, then pat dry, apply triple antibiotic, then dry gauze, wrap and elevate. sutures to be removed in 10-14 days Medications: norco 7.5/325 Augmentin x 5 days Follow up: PCP 3-[address] Santo in wound healing center later this wleek. Call as soon as possible to make appointment. Neurology 2-3 weeks Vascular in ~1-2 weeks Please call to schedule / confirm appointments Physical Exam: GEN: Alert, oriented, NAD CV: Regular rate and rhythm, systolic murmur Pulm: Nonlabored respirations on room air, clear bilaterally ABD: soft, nontender, nondistended Integumentary: Right BKA with dressing in place Vital Signs/Physical Exam: Temp Pulse Resp BP Pulse Ox 98.6 F 83 16 121/66 95 02/06/25 16:00 02/06/25 16:00 02/06/25 16:00 02/06/25 16:00 02/06/25 16:00 Laboratory Data at Discharge: WBC 10.70 thou/uL (4.3-10.9) 02/05/25 07:44 Hgb 8.0 g/dL (12.0-15.0) L 02/05/25 07:44 Hct 24.9 % (36.0-45.0) L 02/05/25 07:44 Plt Count 197 thou/uL (152-406) 02/05/25 07:44 PT 18.0 SECONDS (10-13.0) H 01/24/25 04:57 INR 1.62 01/24/25 04:57 APTT 36.9 SECONDS (27.2-37.4) 01/24/25 04:57 Sodium 139 mEq/L (136-145) 02/05/25 07:44 Potassium 3.5 mEq/L (3.5-5.1) 02/05/25 07:44 BUN 5 mg/dL (7-18) L 02/05/25 07:44 Creatinine 0.30 mg/dL (0.55-1.02) L 02/05/25 07:44 Glucose 70 mg/dL (74-106) L 02/05/25 07:44 Magnesium 1.8 mg/dL (1.6-2.4) 02/05/25 07:44 Total Bilirubin 0.6 mg/dL (0.2-1.0) 01/24/25 04:57 AST 12 U/L (15-37) L 01/24/25 04:57 ALT < 14 U/L (13-56) 01/24/25 04:57 Alkaline Phosphatase 72 U/L (45-117) 01/24/25 04:57 Home Medications: Apixaban [Eliquis] 5 mg PO BID 01/23/25 RX: Aspirin Chewable [Aspirin Chewable*] 81 mg PO DAILY 01/23/25 RX: Duloxetine [Cymbalta *] 30 mg PO DAILY 01/23/25 RX: Levothyroxine [Synthroid*] 50 mcg PO [id number] 01/23/25 RX: Omeprazole [Prilosec] 40 mg PO DAILY 01/23/25 RX: Polyethyl Gly 3350 [Glycolax*] 17 gm PO DAILY 01/23/25 RX: Rosuvastatin [Crestor*] 20 mg PO DAILY 01/23/25 RX: Tamsulosin [Flomax*] 0.8 mg PO [id number] 01/23/25 RX: Zinc Sulfate 50 mg PO TID 01/23/25 RX: methocarbamoL [Methocarbamol] 500 mg PO TID 01/23/25 Clopidogrel Bisulfate [Plavix] 75 mg PO DAILY 02/11/25 RX: Gabapentin 300 mg PO TID 02/11/25 RX: Hydrocodone 7.5/APAP 325 [[place] 7.5/325 mg*] 7.5 - 325 mg PO Q6H PRN 02/11/25 Physician Discharge Instructions: Physician discharge instructions: Patient presented to ED with poor healing TMA stump wound after she started bleeding from the her right TMA wound site. Her hemoglobin was noted to be 6.7 on admission, improved to 9.4 with 2 blood transfusions. Patient noted to have significant history of PVD with extensive list of surgeries in attempts to salvage her foot. She was evaluated by Dr. Santo, general surgeon, and ultimately the decision was made for right BKA, done 01/24. Post-operatively, hemoglobin fluctuated in the low 7s, high 6s requiring a 3rd blood transfusion on 01/27. Since then her hemoglobin improved and has remained stable in the high 7-8s. On exam, her middle toe of the left foot was noted to have increased discoloration, concerning for mild ischemia at the tip. Dr. Santo recommended doppler study which noted diffuse monophasic waveforms in left lower extremity. She was re-evaluated by Dr. Santo and underwent partial amputation of middle toe of left foot. Patient tolerated procedure well without issues. Hemoglobin remained stable post-operatively. Patient has completed 2 weeks of IV zosyn while hospitalized. Patient will need to get nancy removed 2 weeks after day of TMA surgery per Dr. Santo (~02/08) She will complete 5 more days of Augmentin Patient was noted to be more confused, lethargic on 01/27. CT Brain showed acute left frontal lobe infarct, suspected hemangioma. Dr. Stuart, neurologist was consulted. MRI noted 2cm acute infarction left frontal lobe, 1.1cm area of increased signal left frontal lobe may represent a cavernous angioma with subacute blood. Discussed critical findings with Neuro and radiology who recommended stat CT head without contrast which did not show any acute active bleed. Patient had her eliquis reversed with Kcentra. Transfer was initiated to [facility] but ultimately was denied. Repeat CT done 12 hours later showed stable lesion. Patient has remained stable without any new neurological symptoms or deficits. She denied any focal weakness or headaches. Repeat CT done 02/01 continued to demonstrate stability. It was unclear, and we were unable to get records to find out definitively why she was recently started on Eliquis. Suspect this was after her recent vascular procedures. So unable to fully review risk vs benefits with patient and family about holding eliquis vs resuming it. If eliquis was started after the RLE vascular interventions, will not require eliquis any further now that she underwent TMA. Discussed with patient and her daughter that there is still uncertainty and re commend for them to follow up with vascular in the next week to review risk vs benefit of eliquis. Patient presented with rosenberg in place on admission from last hospitalization due to ?post-op retention. She failed voiding trial last hospitalization and was told to f/u with urology as outpatient. Rosenberg was eventually removed during this hospitalization and she has been able to urinate without issues since rosenberg removal via purewick. Consider outpatient urology if symptoms reoccur Continue local wound care per surgery: Medial thigh wound - rinse with vashe, then saline, apply santyl, gauze packing BKA site - changed daily with xerform, fluffs, kerlix, patricio, knee immobilizer LEFT toe - remove all dressings, clean with hibicleans, then pat dry, apply triple antibiotic, then dry gauze, wrap and elevate. sutures to be removed in 10-14 days Medications: norco 7.5/325 Augmentin x 5 days Follow up: PCP 3-[address] Santo in wound healing center later this wleek. Call as soon as possible to make appointment. Neurology 2-3 weeks Vascular in ~1-2 weeks Please call to schedule / confirm appointments Followup: Alexi Santo MD [ACTIVE - CAN ADMIT] - OOT,OOT [Primary Care Provider] - Time spent managing pt's care (in minutes): 45
== END 2025-02-06 16:36 | disposition home health service (06) | DRG 463 ==
LOC: ER 19:23 → 3RD-ICU 01-23 02:53 → 2ND 01-30 15:35
PROVIDERS: ADMIT Hospitalist; ATTEND Hospitalist
PROC: 30233N1 Transfusion of Nonautologous Red Blood Cells into Peripheral Vein, Percutaneous Approach (ICD-10-PCS; 2025-01-23)
PROC: 5A1D70Z Performance of Urinary Filtration, Intermittent, Less than 6 Hours Per Day (ICD-10-PCS; 2025-01-23)
PROC: 0JBN0ZZ Excision of Right Lower Leg Subcutaneous Tissue and Fascia, Open Approach (ICD-10-PCS; principal; 2025-01-24 14:00)
PROC: 02HV33Z Insertion of Infusion Device into Superior Vena Cava, Percutaneous Approach (ICD-10-PCS; 2025-01-26)
PROC: 0Y6N0ZB Detachment at Left Foot, Partial 2nd Ray, Open Approach (ICD-10-PCS; 2025-02-01)
DX: T87.53 Necrosis of amputation stump, right lower extremity (principal); E43 Unspecified severe protein-calorie malnutrition; I63.9 Cerebral infarction, unspecified; D62 Acute posthemorrhagic anemia; E11.52 Type 2 diabetes mellitus with diabetic peripheral angiopathy with gangrene; T87.81 Dehiscence of amputation stump; I48.91 Unspecified atrial fibrillation; E03.9 Hypothyroidism, unspecified; M06.9 Rheumatoid arthritis, unspecified; D18.02 Hemangioma of intracranial structures; E78.00 Pure hypercholesterolemia, unspecified; K21.9 Gastro-esophageal reflux disease without esophagitis; E88.09 Other disorders of plasma-protein metabolism, not elsewhere classified; I25.10 Atherosclerotic heart disease of native coronary artery without angina pectoris; R33.9 Retention of urine, unspecified; Z88.2 Allergy status to sulfonamides; Z88.1 Allergy status to other antibiotic agents; Z79.01 Long term (current) use of anticoagulants; Z79.82 Long term (current) use of aspirin; Z68.23 Body mass index [BMI] 23.0-23.9, adult; Z89.421 Acquired absence of other right toe(s); Z79.890 Hormone replacement therapy; Z79.899 Other long term (current) drug therapy; Z89.522 Acquired absence of left knee; Z89.521 Acquired absence of right knee; Z87.891 Personal history of nicotine dependence
CPT/HCPCS: 36415; 70450; 70553; 71045; 80048; 80053; 81001; 82607; 82728; 82947; 83540; 83605; 83735; 84132; 84439; 84443; 84484; 85014; 85018; 85025; 85027; 85044; 85610; 85730; 86850; 86900; 86901; 86920; 88305; 88307; 93306; 93926; 96365; 96375; 97110; 97161; 97165; 97530; 99285; A9577; J1100; J1171; J2003; J2250; J2371; J2405; J2543; J2704; J3010; J3475; J3480; J3590; J7030; J7050; J7168; P9016; P9047